=== PATIENT | male | born 1955 | race Caucasian/White ===

== ENCOUNTER → 2016-07-01 | Outpatient (CLI) | payer BC ==
[~2016-07-01] MED LIST: CEPH500C PO; FENO145T26 PO; FLUO20CA35 PO; GLC/500 PO; INSDGIPEN SC; MCR5 PO; OMEG10007 PO
[2016-07-01 12:22] LABS: ALT/SGPT 35 U/L (12-78); BLOOD UREA NITROGEN 28 mg/dl (7-18); BUN/CREATININE RATIO 16.3 (10-20); CALCIUM 9.7 mg/dl (8.5-10.1); CARBON DIOXIDE 28 mmol/L (21-32); CHLORIDE 106 mmol/L (98-107); CHOLESTEROL 168 mg/dl (0-200); GLUCOSE 162 mg/dl (70-99); POTASSIUM 4.3 mmol/L (3.5-5.1); SODIUM 141 mmol/L (136-145); TRIGLYCERIDES 158 mg/dl (0-150); VERY LOW DENSITY LIPOPROT CALC 32 mg/dl
[2016-07-01 12:25] LABS: ALB/GLOB RATIO 0.9 (0.9-2); ALKALINE PHOSPHATASE 78 U/L (45-117); AST/SGOT 22 U/L (15-37); CHOLESTEROL/HDL RATIO 4.5; HDL CHOLESTEROL 37 mg/dl; LDL CHOLESTEROL CALCULATED 99 mg/dl
[2016-07-01 12:28] LABS: ESTIMATED AVERAGE GLUCOSE 206 mg/dl; HA1C FLAG Normal (Normal)
== END | disposition home or self-care (01) ==
LOC: C.LABPVFM 10:32
PROVIDERS: ATTEND Family Medicine
DX: E78.5 Hyperlipidemia, unspecified (principal); E11.22 Type 2 diabetes mellitus with diabetic chronic kidney disease; N18.9 Chronic kidney disease, unspecified

== ENCOUNTER → 2016-07-21 | Outpatient (CLI) | payer BC ==
[2016-07-21 13:12] LABS: THYROID STIMULATING HORMONE 2.14 uIu/ml (0.300-4.500)
== END | disposition home or self-care (01) ==
LOC: C.LABPVFM 09:36
PROVIDERS: ATTEND Internal Medicine Endocrinology, Diabetes & Metabolism
DX: E11.9 Type 2 diabetes mellitus without complications (principal)

== ENCOUNTER → 2016-08-24 | Outpatient (CLI) | payer BC ==
[~2016-08-24] VITALS: Ht 180.3 cm; Wt 145.2 kg
[2016-08-24 12:33] VITALS: BP 182/82; PULSE 79; Ht 180.3 cm; Wt 145.2 kg
== END | disposition home or self-care (01) ==
LOC: C.NEUR 12:12
PROVIDERS: ATTEND Physician Assistant Medical
DX: G47.33 Obstructive sleep apnea (adult) (pediatric) (principal); G47.34 Idiopathic sleep related nonobstructive alveolar hypoventilation; E66.01 Morbid (severe) obesity due to excess calories; F17.200 Nicotine dependence, unspecified, uncomplicated

== ENCOUNTER → 2016-10-19 | Outpatient (CLI) | payer BC ==
[2016-10-19 12:44] LABS: ESTIMATED AVERAGE GLUCOSE 169 mg/dl; HA1C FLAG Normal (Normal)
[2016-10-19 13:17] LABS: THYROID STIMULATING HORMONE 1.25 uIu/ml (0.300-4.500)
== END | disposition home or self-care (01) ==
LOC: C.LABPVFM 10:06
PROVIDERS: ATTEND Internal Medicine Endocrinology, Diabetes & Metabolism
DX: E11.9 Type 2 diabetes mellitus without complications (principal); E03.9 Hypothyroidism, unspecified

== ENCOUNTER → 2017-02-17 | Outpatient (CLI) | payer BC ==
[2017-02-17 13:27] LABS: ESTIMATED AVERAGE GLUCOSE 229 mg/dl; HA1C FLAG Normal (Normal)
[2017-02-17 13:29] LABS: CREATININE RANDOM URINE 81.9 mg/dl
[2017-02-17 14:06] LABS: RATIO 1197.8 mcg/mg (0-30.0)
[2017-02-17 14:25] LABS: ALT/SGPT 34 U/L (12-78); AST/SGOT 25 U/L (15-37); BLOOD UREA NITROGEN 59 mg/dl (7-18); BUN/CREATININE RATIO 31.5 (10-20); CALCIUM 9.7 mg/dl (8.5-10.1); CARBON DIOXIDE 23 mmol/L (21-32); CHLORIDE 104 mmol/L (98-107); CREATININE 1.87 mg/dl (0.60-1.40); GLUCOSE 168 mg/dl (70-99); POTASSIUM 4.3 mmol/L (3.5-5.1); SODIUM 137 mmol/L (136-145)
[2017-02-17 14:36] LABS: ALB/GLOB RATIO 0.9 (0.9-2); ALKALINE PHOSPHATASE 121 U/L (45-117); CHOLESTEROL 172 mg/dl (0-200); CHOLESTEROL/HDL RATIO 4.9; HDL CHOLESTEROL 35 mg/dl; LDL CHOLESTEROL CALCULATED 65 mg/dl; TRIGLYCERIDES 362 mg/dl (0-150); VERY LOW DENSITY LIPOPROT CALC 72 mg/dl
== END | disposition home or self-care (01) ==
LOC: C.LABPVFM 10:05
PROVIDERS: ATTEND Internal Medicine Endocrinology, Diabetes & Metabolism
DX: Z11.59 Encounter for screening for other viral diseases (principal); E66.01 Morbid (severe) obesity due to excess calories; I12.9 Hypertensive chronic kidney disease with stage 1 through stage 4 chronic kidney disease, or unspecified chronic kidney disease; E78.5 Hyperlipidemia, unspecified; F32.9 Major depressive disorder, single episode, unspecified; N18.9 Chronic kidney disease, unspecified; E55.9 Vitamin D deficiency, unspecified; E11.42 Type 2 diabetes mellitus with diabetic polyneuropathy; B35.3 Tinea pedis; E03.9 Hypothyroidism, unspecified

== ENCOUNTER → 2017-03-04 | Outpatient (CLI) | payer BC ==
--- NOTE | 2017-03-04 12:15 | DIAGNOSTIC IMAGING REPORT ---
(RENAL)RETROPERITON COMP HISTORY: Renal insufficiency N18.9 Chronic renal [id number] COMPARISON: None. FINDINGS: Right kidney: Maximum linear dimension 13.1 cm. 3.5 cm upper pole cyst. Mild cortical scarring throughout. No evidence for hydronephrosis. Left kidney: Maximum dimension 12.2 cm. 4.5 cm mid pole cyst. No evidence for hydronephrosis. Mild cortical scarring throughout. Bladder: No bladder wall thickening. The bilateral ureteral jets were identified. IMPRESSION: 1. Bilateral renal cysts. 2. No evidence for hydronephrosis. 3. Moderate cortical scarring of both kidneys consistent with a component of nonobstructive renal insufficiency The above report was generated using voice recognition software. It may contain grammatical, syntax or spelling errors. Electronically signed by: Bucky Alanis M.D. 03/04/2017 12:14 PM Dictated Date/Time: 03/04/2017 12:12 PM
== END | disposition home or self-care (01) ==
LOC: C.ULTR 11:19
PROVIDERS: ATTEND Family Medicine
DX: N18.9 Chronic kidney disease, unspecified (principal); N28.1 Cyst of kidney, acquired; N28.89 Other specified disorders of kidney and ureter

== ENCOUNTER → 2017-05-24 | Outpatient (CLI) | payer BC ==
[~2017-05-24] VITALS: Ht 175.3 cm; Wt 151.7 kg
[2017-05-24 12:43] VITALS: BP 155/74; PULSE 94; Ht 175.3 cm; Wt 151.7 kg
== END | disposition home or self-care (01) ==
LOC: C.NEUR 12:14
PROVIDERS: ATTEND Internal Medicine Pulmonary Disease
DX: G47.33 Obstructive sleep apnea (adult) (pediatric) (principal); G47.34 Idiopathic sleep related nonobstructive alveolar hypoventilation; E66.01 Morbid (severe) obesity due to excess calories

== ENCOUNTER → 2017-06-16 | Outpatient (CLI) | payer BC ==
[2017-06-16 13:13] LABS: HEMOGLOBIN A1C 9.1 % (4.5-5.6)
[2017-06-16 13:35] LABS: ALBUMIN 3.2 gm/dl (3.4-5.0); ALKALINE PHOSPHATASE 138 U/L (45-117); ALT/SGPT 42 U/L (12-78); AST/SGOT 31 U/L (15-37); BLOOD UREA NITROGEN 58 mg/dl (7-18); CALCIUM 9.1 mg/dl (8.5-10.1); CARBON DIOXIDE 24 mmol/L (21-32); CREATININE 2.12 mg/dl (0.60-1.40); GLUCOSE 229 mg/dl (70-99); POTASSIUM 4.3 mmol/L (3.5-5.1); SODIUM 138 mmol/L (136-145)
== END | disposition home or self-care (01) ==
LOC: C.LABPVFM 09:39
PROVIDERS: ATTEND Family Medicine
DX: E66.01 Morbid (severe) obesity due to excess calories (principal); I10 Essential (primary) hypertension; E78.5 Hyperlipidemia, unspecified; E55.9 Vitamin D deficiency, unspecified; N18.9 Chronic kidney disease, unspecified; E11.9 Type 2 diabetes mellitus without complications; E03.9 Hypothyroidism, unspecified

== ENCOUNTER → 2017-10-20 | Outpatient (CLI) | payer BC ==
[2017-10-20 14:20] LABS: ALBUMIN 2.8 gm/dl (3.4-5.0); BLOOD UREA NITROGEN 50 mg/dl (7-18); CALCIUM 8.6 mg/dl (8.5-10.1); CARBON DIOXIDE 22 mmol/L (21-32); CREATININE 2.49 mg/dl (0.60-1.40); GLUCOSE 306 mg/dl (70-99); PHOSPHORUS 3.4 mg/dl (2.5-4.9); POTASSIUM 4.3 mmol/L (3.5-5.1); SODIUM 135 mmol/L (136-145)
== END | disposition home or self-care (01) ==
LOC: C.LABPVFM 10:27
PROVIDERS: ATTEND Internal Medicine Nephrology
DX: N17.9 Acute kidney failure, unspecified (principal)

== ENCOUNTER → 2017-11-02 | Outpatient (CLI) | payer BC ==
--- NOTE | 2017-11-02 13:48 | DIAGNOSTIC IMAGING REPORT ---
GASTRIC EMPTYING HISTORY: Dyspepsia NAUSEA,VOMITING,UNINTENTIONAL WT LOSS COMPARISON: None. TECHNIQUE: Following the oral administration of 1.1 mCi of technetium 99m sulfur colloid in egg sandwich and 8 ounces of water, static abdominal images are obtained anteriorly and posteriorly at 0 minutes, 1 hour, 2 hour, and 4 hour time intervals. Gastric emptying was calculated utilizing the geometric mean method. FINDINGS: There is approximately 75 % activity remaining at the 1 hour time interval (normal is less than 90%), 31 % remaining at the 2 hour time interval (normal is less than 60%), and 8 % activity remaining at the 4 hour time interval (normal is less than 10%). IMPRESSION: No evidence for delayed gastric emptying. The above report was generated using voice recognition software. It may contain grammatical, syntax or spelling errors. Electronically signed by: Bucky Alanis M.D. 11/02/2017 1:47 PM Dictated Date/Time: 11/02/2017 1:46 PM
== END | disposition home or self-care (01) ==
LOC: C.NUCL 08:43
PROVIDERS: ATTEND Physician Assistant
DX: R11.2 Nausea with vomiting, unspecified (principal); R63.4 Abnormal weight loss

== ENCOUNTER → 2017-11-28 | Outpatient (CLI) | payer BC ==
--- NOTE | 2017-11-28 12:21 | DIAGNOSTIC IMAGING REPORT ---
ABDOMEN 2VIEW W/PA CHEST RTN CLINICAL HISTORY: Abdominal discomfort pain COMPARISON STUDY: No previous studies for comparison. FINDINGS: The soft tissues, psoas shadows, renal outlines and intestinal gas pattern appear normal. There is no evidence for bowel obstruction. There is no evidence for free intraperitoneal air. No abnormal abdominal calcifications are seen. A frontal view of the chest was performed and is unremarkable. IMPRESSION: Normal study. The above report was generated using voice recognition software. It may contain grammatical, syntax or spelling errors. Electronically signed by: Bucky Alanis M.D. 11/28/2017 12:20 PM Dictated Date/Time: 11/28/2017 12:19 PM
== END | disposition home or self-care (01) ==
LOC: C.RADPV 11:56
PROVIDERS: ATTEND Family Medicine
DX: R10.9 Unspecified abdominal pain (principal)

== ENCOUNTER 2020-01-22 14:20 | Inpatient (IN) ==
--- NOTE | 2020-01-22 14:54 | Emergency Department Note ---
History of Present Illness General Chief complaint: Illness Stated complaint: weakness Time Seen by Provider: 01/22/20 14:53 History of Present Illness Maximum Pain Intensity: 0 Home Medications Home Medications Medication Instructions Recorded Confirmed Type aspirin 81 mg PO QPM 12/22/17 11/26/19 History econazole 1 applic TOPICAL BID 12/22/17 11/26/19 History nitroglycerin See Rx Instructions .ROUTE .COMPLEX 12/22/17 11/26/19 History ondansetron 8 mg PO BID PRN 12/22/17 11/26/19 History buspirone 10 mg PO BID 01/27/18 11/26/19 History calcitriol 0.25 mcg capsule 0.25 mcg PO .COMPLEX #36 cap 11/14/18 11/26/19 Rx fluoxetine 40 mg capsule 40 mg PO QDL 02/02/19 11/26/19 History FreeStyle Virgil 14 Day Sensor #6 ea NS 02/05/19 11/26/19 Rx insulin NPH isoph U-100 human 100 100 unit SUBCUT BID PRN 02/05/19 11/26/19 His tory unit/mL subcutaneous suspension losartan 50 mg tablet 50 mg PO DAILY 02/05/19 11/26/19 History mv,[id number] 1 cap PO DAILY cap 02/05/19 11/26/19 History oil 400 mcg-500 unit capsule pen needle, diabetic 32 gauge x #100 ea 02/05/19 11/26/19 Rx 1/4" insulin degludec 100 unit/mL (3 20 units SQ DAILY ml 05/28/19 11/26/19 History mL) subcutaneous pen levothyroxine 125 mcg tablet 125 mcg PO DAILY #90 tab 08/01/19 11/26/19 Rx Wheelchair (Manual or Powered) #1 ea 09/11/19 11/26/19 Rx gabapentin 100 mg capsule 300 mg PO DAILY cap 09/21/19 11/26/19 History carvedilol 3.125 mg tablet 3.125 mg PO BID #60 tab 12/04/19 Rx escitalopram oxalate 5 mg tablet 5 mg PO DAILY 01/09/20 01/09/20 History amlodipine 10 mg tablet 10 mg PO QPM #90 tab 01/17/20 Rx Allergies Allergy/AdvReac Type Severity Reaction Status Date / Time milk Allergy Mild Gastrointestinal Verified 01/09/20 11:18 Upset No Known Drug Allergies Allergy Uncoded 01/09/20 11:18 Past Med/Surg History Medical History Anxiety GERD (gastroesophageal reflux disease) Hyperlipidemia On home oxygen therapy 2L n/c with cpap at [facility] Osteoarthritis Peripheral neuropathy bilt legs/feet Surgical History History of bilateral cataract extraction History of cardiac cath 01/2018 "about 2-3 weeks"; no stents placed @ [facility] by Dr. Coronel History of carpal tunnel release R wrist History of colonoscopy History of repair of anterior cruciate ligament of left knee History of repair of anterior cruciate ligament of right knee History of tonsillectomy History of tooth extraction wisdom teeth Family History Mother Family history of diabetes mellitus Grandmother Family history of diabetes mellitus maternal Other Colorectal cancer Inflammatory bowel disease Melanoma Social History Smoking Status: Current every day smoker Cigarettes Per Day: 15 a day; Second Hand Exposure: No; Hx Alcohol Use: Yes Alcohol type: beer Hx Substance Use: No Preferred Language: Sudanese Communication Ability: Effective 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 Beliefs That Will Affect Care: None Current Living Situation: Family Current Living Situation Comment: lives with son Feels Safe at Home: Yes Assistive Devices: Cane, CPAP, Glasses, Oxygen - at Night, Special Shoe and Walker Physical Exam Vital Signs Vital Signs - 24 hr 01/22/20 14:25 Temperature 36.9 C Temperature Source Oral Pulse Rate 90 Respiratory Rate 16 Blood Pressure 138/64 Blood Pressure Mean 88 Pulse Oximetry 96 Oxygen Delivery Method Room Air Sepsis Recent Fever Within 48 Hours No Sepsis New/Unexplained Change in Mental Status N/A Sepsis Action Taken by Nursing No Action Required Discharge Plan Visit Data Chief Complaint: Illness Stated Complaint: weakness ED Provider: Audi Mattson Prescriptions Prescriptions: No Action calcitriol 0.25 mcg capsule 0.25 mcg PO .COMPLEX Qty: 36 RF: 1 (DME) Power Wheelchair Device See Rx Instructions .ROUTE .MEDSUPPLY Qty: 1 RF: 0 carvedilol 3.125 mg tablet 3.125 mg PO BID Qty: 60 RF: 5 amlodipine 10 mg tablet 10 mg PO QPM Qty: 90 RF: 3 gabapentin 100 mg capsule 300 mg PO DAILY RF: 0 escitalopram oxalate 5 mg tablet 5 mg PO DAILY RF: 0 levothyroxine 125 mcg tablet 125 mcg PO DAILY Qty: 90 RF: 0 losartan 50 mg tablet 50 mg PO DAILY RF: 0 ProRenal QD 400-500 mcg-unit capsule 1 cap PO DAILY RF: 0 (DME) FreeStyle Virgil 14 Day Sensor kit See Dose Instructions .ROUTE .MEDSUPPLY Qty: 6 RF: 3 (DME) pen needle, diabetic [BD Ultra-Fine Micro Pen Needle] 32 gauge x 1/4" needle See Dose Instructions .ROUTE .MEDSUPPLY Qty: 100 RF: 3 Tresiba FlexTouch U-100 100 unit/mL (3 mL) insulin pen 20 units SQ DAILY RF: 0 buspirone 10 mg Tablet 10 mg PO BID RF: 0 fluoxetine 40 mg capsule 40 mg PO QDL RF: 0 ondansetron 8 mg Tablet,Disintegrating 8 mg PO BID PRN (Reason: Nausea) RF: 0 econazole 1 % Cream 1 applic TOPICAL BID RF: 0 nitroglycerin 0.4 mg Tablet, Sublingual See Rx Instructions .ROUTE .COMPLEX RF: 0 aspirin 81 mg Tablet,Chewable 81 mg PO QPM RF: 0 Novolin N NPH U-100 Insulin 100 unit/mL suspension 100 unit SUBCUT BID PRNRF: 0
[2020-01-22 15:40] LABS: Basophils # (auto) 0.04 K/uL (0-0.2); Basophils % (auto) 0.3 %; Eosinophils # (auto) 0.27 K/uL (0-0.5); Eosinophils % (auto) 2.1 %; Hemoglobin 13.3 g/dL (14.0-18.0); Immature Granulocytes # (auto) 0.18 K/uL (0.00-0.02); Immature Granulocytes % (auto) 1.4 %; Lymphocytes # (auto) 1.96 K/uL (1.2-3.4); Lymphocytes % (auto) 15.2 %; Mean Corpuscular Hgb Conc 34.1 g/dL (32-36); Mean Platelet Volume 10.3 fL (7.4-10.4); Monocytes # (auto) 0.68 K/uL (0.11-0.59); Monocytes % (auto) 5.3 %; Neutrophils # (auto) 9.77 K/uL (1.4-6.5); Neutrophils % (auto) 75.7 %; Platelet Count 241 K/uL (130-400); RDW Coefficient of Variation 13.1 % (11.5-14.5); RDW Standard Deviation 45.3 fL (36.4-46.3); Red Blood Count 4.15 M/uL (4.7-6.1)
[2020-01-22 16:00] LABS: Alanine Aminotransferase 16 U/L (12-78); Albumin Level 3.3 gm/dl (3.4-5.0); Aspartate Aminotransferase 8 U/L (15-37); BUN Creatinine Ratio 10.9 (10-20); Blood Urea Nitrogen 43 mg/dl (7-18); Calcium 9.9 mg/dl (8.5-10.1); Carbon Dioxide 32 mmol/L (21-32); Chloride 95 mmol/L (98-107); Creatinine Clr Calc Pharmacy 21.2 ml/min; Est GFR (African American) 17.5; Est GFR (Non-African American) 15.1; Glucose 111 mg/dl (70-99); Magnesium 2.4 mg/dl (1.8-2.4); Potassium 3.5 mmol/L (3.5-5.1); Sodium 133 mmol/L (136-145)
[2020-01-22 16:10] LABS: Albumin Globulin Ratio 0.6 (0.9-2); Alkaline Phosphatase 152 U/L (45-117); Bilirubin,Total 0.6 mg/dl (0.2-1); Globulin 5.3 gm/dl (2.5-4.0); Total Protein 8.6 gm/dl (6.4-8.2); Troponin I < 0.015 ng/ml (0-0.045)
--- NOTE | 2020-01-22 16:11 | XRay Report ---
XR chest 1V portable HISTORY: 64 years-old Male weakness acute weakness COMPARISON: Acute abdominal series radiographs 11/28/2017 TECHNIQUE: Portable AP view of the chest FINDINGS: Moderate cardiomegaly. Moderate left pleural effusion with left lung base consolidation. No pneumotho rax. Hazy opacities are noted throughout the right lung. Degenerative changes of the shoulders and sp ine. IMPRESSION: 1. Moderate left pleural effusion with left lung base consolidation. 2. Hazy opacities throughout the right lung may reflect asymmetric pulmonary edema versus interstitia l pneumonitis. 3. Cardiomegaly. ACT 112: Negative or not required by law. The above report was generated using voice recognition software. It may contain grammatical, syntax o r spelling errors. Electronically signed by: Santi Baxter M.D. 01/22/2020 4:09 PM
--- NOTE | 2020-01-22 16:38 | Electrocardiogram Report ---
Test Reason : Blood Pressure : / mmHG Vent. Rate : 059 BPM Atrial Rate : 059 BPM P-R Int : 236 ms QRS Dur : 092 ms QT Int : 494 ms P-R-T Axes : 065 042 045 degrees QTc Int : 489 ms Poor data quality, interpretation may be adversely affected Sinus bradycardia with 1st degree A-V block Low voltage QRS Prolonged QT Abnormal ECG When compared with ECG of 25-JAN-2011 12:01, QT has lengthened Confirmed by Veto Pisano ([id number]) on 01/22/2020 4:37:41 PM Referred By: REFERRED SELF Confirmed By:Veto Pisano
--- NOTE | 2020-01-22 16:48 | CT Scan Report ---
CT head/brain wo con CLINICAL HISTORY: 64 years-old Male with AMS. Acutely altered mental status TECHNIQUE: Multiple axial CT images of the head were obtained without contrast. A dose lowering tech nique was utilized adhering to the principles of ALARA. CT DOSE: 2592.00 mGy.cm COMPARISON: The maxillofacial 01/14/2011 FINDINGS: No acute intracranial hemorrhage, midline shift, intracranial mass, hydrocephalus, territorial ischem ia or abnormal extra-axial collection. Age-related involutional changes. Extensive patchy white matte r hypodensities. Dense calcifications of the anterior falx cerebri. The calvarium is intact. Trace mastoid effusions. Partially imaged polypoid mucosal thickening of th e maxillary sinuses, left greater than right. Soft tissues are unremarkable. Prior bilateral lens rep lacement. IMPRESSION: No acute intracranial abnormality. ACT 112: Negative or not required by law. The above report was generated using voice recognition software. It may contain grammatical, syntax o r spelling errors. Electronically signed by: Santi Baxter M.D. 01/22/2020 4:47 PM
--- NOTE | 2020-01-22 16:56 | CT Scan Report ---
ABDOMEN AND PELVIS CT WITHOUT CONTRAST HISTORY: Acute diarrhea with generalized abdominal pain ESRD, diarrhea, diffuse abd pain TECHNIQUE: Multiaxial CT images of the abdomen and pelvis were performed without contrast. A dose lo wering technique was utilized adhering to the principles of ALARA. COMPARISON STUDY: Chest radiograph of same day, CT abdomen 12/09/2017 FINDINGS: Small to moderate left pleural effusion with left basilar consolidation. Groundglass opacities throug hout the right lung base. There is no pneumatosis or pneumoperitoneum. Cardiomegaly. Limited evaluati on of the solid abdominal organs without the use of IV contrast. Within the limitations of the study, the spleen, and pancreas appear unremarkable. Mild thickening of the adrenal glands suggestive of hy perplasia. Minimal layering cholelithiasis within the gallbladder neck. No CT evidence of acute juan cystitis. Unremarkable liver. Nonspecific mild bilateral perinephric stranding. Bilateral renal cysts measure up to 4.3 cm on the r ight. There are a few tiny calcifications measuring up to 1-2 mm within the inferior poles of the benji ateral kidneys. No ureteral calculi or obstructive uropathy. Mild urinary bladder wall thickening wit h partial distention. Mild prostamegaly. Calcified plaque of the aorta without aneurysm. No adenopath y. No bowel obstruction or bowel wall thickening. Minimal colonic diverticulosis without acute diverticu litis. Terminal ileum and appendix are unremarkable. No ascites or mesenteric inflammation. Tiny fat filled periumbilical hernia. Degenerative changes of the shoulders and spine with multilevel posterio r disc osteophyte complex formations. No acute fracture or suspicious bone lesion. IMPRESSION: 1. Small to moderate left pleural effusion with left basilar consolidation. 2. Partially imaged groundglass opacities of the right lung base favor atelectasis. 3. No bowel obstruction or bowel wall thickening. 4. Tiny bilateral renal calcifications are likely vascular. 5. Prostamegaly with urinary bladder wall thickening suggestive of chronic bladder outlet obstruction . 6. Additional findings as above. ACT 112: Negative or not required by law. The above report was generated using voice recognition software. It may contain grammatical, syntax o r spelling errors. Electronically signed by: Santi Baxter M.D. 01/22/2020 4:54 PM
[2020-01-22] MEDS ORDERED: VANCOMYCIN CONSULT ACTIVE PRN ×2 (16:57→21:10)
[2020-01-22] MEDS ORDERED: CEFEPIME 2,000 MG/20 ML VIAL IV STA (16:57)
[2020-01-22] MEDS ORDERED: VANCOMYCIN HCL 1,750 MG in SODIUM CHLORIDE 0.9% 500 ML IV ONE (16:57)
--- NOTE | 2020-01-22 18:09 | History & Physical Report ---
Date of Service January 22, 2020 Assessment & Plan (1) Metabolic encephalopathy: Patient is similar although the duration of her baseline of some forgetfulness. Could be infectious etiology concerning for left lower lobe pneumonia which is encouraged by this effusion. Patient's been initiated on antibiotics of vancomycin and cefepime in ER and cultured. There is negative Covid test. We will also send a urine analysis the patient does take Lasix therapy his urine and certainly with his diarrhea could be a diarrheal infectious illness could be caused (2) Diarrhea: Patient's diarrhea is currently being tested for infectious etiologies if positive will be treated appropriately (3) LLL pneumonia: Patient has a possible pneumonia with inside a large effusion. We will ask for diagnostic paracentesis. If Covid test is negative we could consider doing go procalcitonin to better understand this is bacterial versus viral he will be continued on vancomycin and cefepime at this time. Patient states he coughs when he drinks almost every single time. His infiltrate is not right- sided to left-sided does not make me consider aspiration pneumonia however we will pursue a speech therapy consultation to determine whether he may benefit from diet modification (4) CKD (chronic kidney disease), stage IV: Patient is on renal replacement therapy consultation Dr. Rachel service will be undertaken for continued treatment while in the hospital (5) Diabetes mellitus: Patient has a unusual sliding scale regimen at home taking Tresiba 10 a day insulin NPH sliding scale. We will convert him to more standard basal bolus insulin while in the hospital we will continue gabapentin for diabetic neuropathy (6) Depression: Patient continues on Lexapro and BuSpar therapy (7) Hypertension: Patient is on amlodipine losartan 50 carvedilol 3.25 twice daily and Lasix 80 twice daily (8) Hypothyroidism: TSH is appropriate on presentation Synthroid continues at 125 (9) Obstructive sleep apnea: Patient will be supplied with BiPAP tonight he typically has urine at home which she did not bring with him (10) Tobacco abuse: Patient was queried regarding his tobacco abuse. The patient does not seem interested in stopping. He is currently using nicotine sublingual and buccal packets. He did not wish to have a nicotine patch one was ordered for him. He did request outside to smoke a was informed he was not allowed to go outside History of Present Illness Primary Care Provider: VY Arriaga Allergies Allergy/AdvReac Type Severity Reaction Status Date / Time milk AdvReac Intermediate Gastrointestinal Verified 01/22/20 16:26 Upset Home Medications Home Medications Medication Instructions Recorded Confirmed Type aspirin 81 mg PO QPM 12/22/17 01/22/20 History econazole 1 applic TOPICAL BID 12/22/17 01/22/20 History nitroglycerin See Rx Instructions .ROUTE 12/22/17 01/22/20 History .COMPLEX PRN ondansetron 8 mg PO BID PRN 12/22/17 01/22/20 History buspirone 10 mg PO BID 01/27/18 01/22/20 History FreeStyle Virgil 14 Day Sensor #6 ea NS 02/05/19 11/26/19 Rx insulin NPH isoph U-100 human 100 100 unit SUBCUT BID PRN 02/05/19 01/22/20 History unit/mL subcutaneous suspension losartan 50 mg tablet 50 mg PO DAILY 02/05/19 01/22/20 History pen needle, diabetic 32 gauge x #100 ea 02/05/19 11/26/19 Rx 1/" insulin degludec 100 unit/mL (3 10 units SQ DAILY ml 05/28/19 01/22/20 History mL) subcutaneous pen Wheelchair (Manual or Powered) #1 ea 09/11/19 11/26/19 Rx gabapentin 100 mg capsule 300 mg PO HS cap 09/21/19 01/22/20 History carvedilol 3.125 mg tablet 3.125 mg PO BID #60 tab 12/04/19 01/22/20 Rx escitalopram oxalate 5 mg tablet 5 mg PO DAILY 01/09/20 01/22/20 History amlodipine 10 mg tablet 10 mg PO QPM #90 tab 01/17/20 01/22/20 Rx calcium acetate(phosphat bind) 2,001 mg PO TIDM 01/22/20 01/22/20 History calcium carbonate [Calcium 500] 500 mg PO DAILY 01/22/20 01/22/20 History ergocalciferol (vitamin D2) 1,250 mcg PO WK 01/22/20 01/22/20 History [Vitamin D2] furosemide [Lasix] 80 mg PO BID 01/22/20 01/22/20 History levothyroxine 125 mcg PO DAILYBB 01/22/20 01/22/20 History mv,[id number]-[id number] 1 cap PO QDD 01/22/20 01/22/20 History [ProRenal QD] nicotine 1 patch TRANSDERMAL DAILY 01/22/20 01/22/20 History omeprazole 20 mg PO DAILYBB 01/22/20 01/22/20 History Past Med/Surg History Medical History (Updated 01/22/20 @ 20:06 by Rashid Espitia MD) Anxiety GERD (gastroesophageal reflux disease) Hyperlipidemia On home oxygen therapy 2L n/c with cpap at Osteoarthritis Peripheral neuropathy bilt legs/feet Surgical History History of bilateral cataract extraction History of cardiac cath 01/2018 "about 2-3 weeks"; no stents placed @ [facility] by Dr. Coronel History of carpal tunnel release R wrist History of colonoscopy History of repair of anterior cruciate ligament of left knee History of repair of anterior cruciate ligament of right knee History of tonsillectomy History of tooth extraction wisdom teeth Family History Mother Family history of diabetes mellitus Grandmother Family history of diabetes mellitus maternal Other Colorectal cancer Inflammatory bowel disease Melanoma Social History Smoking Status: Current every day smoker Cigarettes Per Day: 15 a day; Second Hand Exposure: No; Hx Alcohol Use: Yes Alcohol type: beer Hx Substance Use: No Preferred Language: Mongolian Communication Ability: Effective Cremator Required: No Beliefs That Will Affect Care: None Current Living Situation: Family Current Living Situation Comment: lives with son Feels Safe at Home: Yes Assistive Devices: Cane, CPAP, Glasses, Oxygen - at Night, Special Shoe and Walker Review of Systems Review of Systems: Mild distress and fatigue seems to be chronic no headache, blurry or double vision no speech or swallowing issues no chest pain, pressure or palpitations no shortness of breath, cough or wheezes no abdominal pain, nausea or vomiting,does have some diarrhea no dysuria, hematuria or frequency no focal joint pain b/l lower leg swelling no back pain, CVA tenderness or radicular pain no bruising, bleeding or rashes no focal signs of weakness or numbness or altered sensation no complaints of anxiety or depression. Physical Exam Physical Exam: The patient chronically slightly volume overloaded Vital signs as documented. Head exam is normocephalic atraumatic no scleral icterus Neck is without JVD, thyromegaly, or carotid bruits. Lungs are clear to auscultation, no focal loss of breath sounds Cardiac exam, Rhythm is regular.. No murmurs, rubs or gallops. Abdominal exam reveals normal bowel sounds, soft non tender, no masses Extremities are nonedematous and both pedal pulses are present Neurologic exam is alert and oriented, no focal loss of strength or sensation Skin is with bruises nad some injuries in various stages of healing Psychologically is with concerns for memory loss Results & Data Results & Data ([facility]) Vital Signs (Past 12 Hours) Vital Signs Temp Pulse Resp BP Pulse Ox 01/22/20 17:45 63 19 98 01/22/20 17:30 62 19 181/94 H 98 01/22/20 17:15 76 16 96 01/22/20 17:00 61 20 166/80 H 97 01/22/20 16:49 62 19 96 01/22/20 16:32 59 L 14 01/22/20 16:00 86 37 H 01/22/20 15:45 77 19 01/22/20 15:35 95 01/22/20 15:30 75 16 01/22/20 15:15 80 22 100 01/22/20 15:00 57 L 18 137/63 100 01/22/20 14:45 63 19 100 01/22/20 14:33 58 L 19 100 01/22/20 14:30 63 19 146/71 H 100 01/22/20 14:25 98.4 F 90 16 138/[address] abdomen and pelvis, 01/22/20 IMpression: 1. Small to moderate left pleural effusion with left basilar consolidation. 2. Partially imaged groundglass opacities of the right lung base favor atelectasis. 3. No bowel obstruction or bowel wall thickening. 4. Tiny bilateral renal calcifications are likely vascular. 5. Prostamegaly with urinary bladder wall thickening suggestive of chronic bladder outlet obstruction PG Care Time/CCT Total # of Minutes Spent Total Time Spent with Patient: Total time spent is greater than 50% in coordination of care (as documented) at patient's floor/unit and/or counseling patient: Coding Level of Care Code 08204 Initial Inpt Care Lvl 3 Diagnoses Metabolic encephalopathy G93.41 Diarrhea R19.7 LLL pneumonia J18.9 CKD (chronic kidney disease), stage IV N18.4 Diabetes mellitus E11.9 Depression F32.9 Hypertension I10 Hypothyroidism E03.9 Obstructive sleep apnea G47.33 Tobacco abuse Z72.0
[2020-01-22] MEDS ORDERED: DEXTROSE 50% 50 ML SYRINGE IV PRN (21:10)
[2020-01-22] MEDS ORDERED: CARBOHYDRATES FOR HYPOGLYCEMIA PO PRN (21:10)
[2020-01-22] MEDS ORDERED: ONDANSETRON INJ 2 MG/ML 2 ML VIAL IV PRN (21:10)
[2020-01-22] MEDS ORDERED: INSULIN GLARGINE SOLOSTAR 100 UNITS/ML 3 ML PEN SC SCH ×2 (21:10→22:00)
[2020-01-22] MEDS ORDERED: ACETAMINOPHEN 325 MG TAB PO PRN (21:10)
[2020-01-22] MEDS ORDERED: LORazepam 0.5 MG TAB PO PRN (21:10)
[2020-01-22] MEDS ORDERED: GLUCAGON FOR INJ 1 MG VIAL SQ PRN (21:10)
[2020-01-22] MEDS ORDERED: MAGNESIUM HYDROXIDE SUSP 30 ML UDC PO PRN (21:10)
[2020-01-22] MEDS ORDERED: GLUCOSE 40% GEL 15 GM TUBE PO PRN (21:10)
[2020-01-22] MEDS ORDERED: GLUCOSE 10 TABS/TUBE PO PRN (21:10)
[2020-01-22] MEDS ORDERED: PHARMACY GLYCEMIC MGMT CONSULT PRN (21:31)
[2020-01-22] MEDS: INSULIN ASPART 100 UNITS/ML 3 ML PEN SC SCH (22:22)
[2020-01-22] MEDS: busPIRone 5 MG TAB PO SCH (22:25)
[2020-01-22] MEDS: carvediloL 3.125 MG TAB PO SCH (22:31)
[2020-01-22] MEDS: GABAPENTIN 300 MG CAP PO SCH (22:31)
[2020-01-22] MEDS: amLODIPine BESYLATE 5 MG TAB PO SCH (22:32)
[2020-01-22] MEDS: FUROSEMIDE 80 MG TAB PO SCH (22:32)
[2020-01-22] MEDS: ASPIRIN 81 MG ECTAB PO SCH (22:34)
--- NOTE | 2020-01-22 22:45 | Emergency Department Note ---
Impression & Plan Left lower lobe pneumonia, Weakness, Acute confusion, CKD (chronic kidney disease), stage IV ED Provider Note INFORMANT: Patient ED PROVIDER(S): Reid Oconnell MD CHIEF COMPLAINT: Weakness PLAN: Disposition: Admitted Condition: Good MEDICAL DECISION MAKING: Patient presented from dialysis because of confusion. Patient noted weakness. He did have some difficulty answering questions and changes answers from time to time. He underwent a work-up. His CBC showed a leukocytosis of 12.9. His chemistry panel was concerning for his end-stage renal disease with creatinine of 3.9. Ammonia and troponin were negative. CT scan of his head was performed because of the confusion and this was negative. ECG showed sinus bradycardia at 59 bpm but no acute changes. Chest x-ray was performed and was concerning for left lower lobe pneumonia. CT scan of the abdomen and pelvis was performed without evidence of acute intra-abdominal pathology. He did complain of nausea and abdominal pain. The patient was found to have the left lower lobe infiltrate and effusion noted on chest x-ray. The patient was treated with a dose of IV cefepime and vancomycin. Consultation was made with internal medicine. Patient was evaluated in the ER and admitted for further treatment. Triage Nursing notes reviewed and agree them. Vital Signs: reviewed and remarkable for no significant abnormalities Differential diagnosis: Infection, hypoglycemia, electrolyte abnormalities, overdose, toxicologic, cardiac sources, intracerebral event, neurologic, trauma, as well as other pathologies. Diagnostics interpreted by me: ECG: Twelve-lead ECG reveals sinus bradycardia at 59 bpm. First-degree AV block. Low voltage QRS. Prolonged QT interval. No ST elevation or depression. Normal axis. Cardiac Monitoring: Cardiac monitoring ordered by me: The patient was placed on continuous cardiac monitoring and observed. It revealed a normal sinus rhythm at 61 beats per minute without ectopy or evidence of dysrhythmia. Imaging studies: Chest x-ray consistent left lower lobe pneumonia. CT scan abdomen pelvis as noted above. Left lower lobe infiltrate noted. No acute process in the abdomen. I refer you to the EMR for further details. Consultation(s): Dr. Steel of internal medicine HPI: The patient is a 64 year old male who presents to the Emergency Room with complaints of weakness. This started most noticeably today at dialysis and is persistent. The patient also notes the following associated symptoms, mild shortness of breath. The patient has taken no medication for relieving factors. Current pain is rated as 0/10. The patient was at dialysis and seemed to be confused. He did not receive the full treatment. The patient noted at 1 point having a family member that was sick but then stated that they were not. He noted mild headache, chest pain, some shortness of breath, some nausea, abdominal pain, generalized weakness. Pt denies LOC, fevers, chills, diaphoresis, visual changes, neck pain,vomiting, back pain, melena, hematochezia, urinary symptoms, numbness, lymphadenopathy, rash, or other complaints. ROS: See above HPI for pertinent positives & negatives. A total of 10 systems reviewed and were otherwise negative. PAST MEDICAL HISTORY:See Below, end-stage renal disease, hypertension PAST SURGICAL HISTORY:See Below, FAMILY HISTORY:See Below SOCIAL HISTORY:See Below, lives with family HOME MEDICATIONS:See Below ALLERGIES:See Below VITALS:See Below PHYSICAL EXAMINATION: GENERAL: Awake, tired-appearing, in no distress HENT: Normocephalic, atraumatic. Oropharynx unremarkable. EYES: Normal conjunctiva. Sclera non-icteric. NECK: Inspection normal. Non-tender. Supple. No nuchal rigidity. FROM. No masses. RESPIRATORY: Diminished in the left base no wheezes. No rales. Normal respiratory effort. CARDIAC: Normal rate. Normal rhythm. No murmurs. No rubs. Extremities warm and well perfused. Pulses equal. No JVD. GI: Soft, non-distended. No tenderness to palpation. No rebound or guarding. No masses. RECTAL: Deferred. MUSCULOSKELETAL: Atraumatic. Chest examination reveals no tenderness. The back is symmetrical on inspection without obvious abnormality. There is no CVA tenderness to palpation. No joint edema. LOWER EXTREMITIES: Calves are equal size bilaterally and non-tender. No edema. No discoloration. NEURO: Mildly confused sensorium. No focal sensory or motor deficits noted. SKIN: No rash or jaundice noted. Reid Oconnell MD Past Med/Surg History Medical History (Updated 01/22/20 @ 22:40 by Reid Oconnell MD) Anxiety GERD (gastroesophageal reflux disease) Hyperlipidemia On home oxygen therapy 2L n/c with cpap at HS Osteoarthritis Peripheral neuropathy bilt legs/feet Surgical History History of bilateral cataract extraction History of cardiac cath 01/2018 "about 2-3 weeks"; no stents placed @ [facility] by Dr. Coronel History of carpal tunnel release R wrist History of colonoscopy History of repair of anterior cruciate ligament of left knee History of repair of anterior cruciate ligament of right knee History of tonsillectomy History of tooth extraction wisdom teeth Family History Mother Family history of diabetes mellitus Grandmother Family history of diabetes mellitus maternal Other Colorectal cancer Inflammatory bowel disease Melanoma Social History Smoking Status: Current every day smoker Cigarettes Per Day: 15 a day; Second Hand Exposure: No; Do You Dip or Chew Tobacco: Yes; Tobacco Cessation Education Requested by Patient: No Hx Alcohol Use: Yes Alcohol type: beer Hx Substance Use: No Preferred Language: Uzbek Communication Ability: Effective Batch Attendant Required: No Beliefs That Will Affect Care: None Current Living Situation: Family Current Living Situation Comment: lives with sonAshish Other Information That Helps Us Care for You: No Feels Safe at Home: Yes Safety Concerns: Feels Safe At This Time Assistive Devices: CPAP, Oxygen - at Night and Wheelchair Assistive Devices Comment: 2L O2 bled into CPAP at night Allergies Allergies Allergy/AdvReac Type Severity Reaction Status Date / Time milk AdvReac Intermediate Gastrointestinal Verified 01/22/20 16:26 Upset Home Meds Home Medications Medication Instructions Recorded Confirmed aspirin 81 mg PO QPM 12/22/17 01/22/20 econazole 1 applic TOPICAL BID 12/22/17 01/22/20 nitroglycerin See Rx Instructions .ROUTE 12/22/17 01/22/20 .COMPLEX PRN ondansetron 8 mg PO BID PRN 12/22/17 01/22/20 buspirone 10 mg PO BID 01/27/18 01/22/20 losartan 50 mg tablet 50 mg PO DAILY 02/05/19 01/22/20 insulin degludec 100 unit/mL (3 10 units SQ DAILY ml 05/28/19 01/22/20 mL) subcutaneous pen gabapentin 100 mg capsule 300 mg PO HS cap 09/21/19 01/22/20 escitalopram oxalate 5 mg tablet 5 mg PO DAILY 01/09/20 01/22/20 calcium acetate(phosphat bind) 2,001 mg PO TIDM 01/22/20 01/22/20 calcium carbonate [Calcium 500] 500 mg PO DAILY 01/22/20 01/22/20 ergocalciferol (vitamin D2) 1,250 mcg PO WK 01/22/20 01/22/20 [Vitamin D2] furosemide [Lasix] 80 mg PO BID 01/22/20 01/22/20 levothyroxine 125 mcg PO DAILYBB 01/22/20 01/22/20 [id number],[id number] 1 cap PO QDD 01/22/20 01/22/20 [ProRenal QD] nicotine 1 patch TRANSDERMAL DAILY 01/22/20 01/22/20 omeprazole 20 mg PO DAILYBB 01/22/20 01/22/20 Previous Rx's Medication Instructions Recorded FreeStyle Virgil 14 Day Sensor #6 ea NS 02/05/19 pen needle, diabetic 32 gauge x #100 ea 02/05/1904/07" Wheelchair (Manual or Powered) #1 ea 09/11/19 carvedilol 3.125 mg tablet 3.125 mg PO BID #60 tab 12/04/19 amlodipine 10 mg tablet 10 mg PO QPM #90 tab 01/17/20 Results & Data (ED) Vital Signs Vital Signs - 24 hr 01/22/20 14:25 01/22/20 14:30 01/22/20 14:33 Temperature 36.9 C Temperature Source Oral Pulse Rate 90 63 58 L Pulse Rate from SpO2 Sensor 58 L 58 L Respiratory Rate 16 19 19 Blood Pressure 138/64 146/71 H Blood Pressure Mean 88 104 Pulse Oximetry 96 100 100 Oxygen Delivery Method Room Air Sepsis Recent Fever Within 48 Hours No Sepsis New/Unexplained Change in Mental Status N/A Sepsis Action Taken by Nursing No Action Required 01/22/20 14:45 01/22/20 15:00 01/22/20 15:15 Temperature Temperature Source Pulse Rate 63 57 L 80 Pulse Rate from SpO2 Sensor 58 L 57 L 62 Respiratory Rate 19 18 22 Blood Pressure 137/63 Blood Pressure Mean 93 Pulse Oximetry 100 100 100 Oxygen Delivery Method Sepsis Recent Fever Within 48 Hours Sepsis New/Unexplained Change in Mental Status Sepsis Action Taken by Nursing 01/22/20 15:30 01/22/20 15:35 01/22/20 15:45 Temperature Temperature Source Pulse Rate 75 77 Pulse Rate from SpO2 Sensor Respiratory Rate 16 19 Blood Pressure Blood Pressure Mean Pulse Oximetry 95 Oxygen Delivery Method Room Air Sepsis Recent Fever Within 48 Hours Sepsis New/Unexplained Change in Mental Status Sepsis Action Taken by Nursing 01/22/20 16:00 01/22/20 16:32 01/22/20 16:49 Temperature Temperature Source Pulse Rate 86 59 L 62 Pulse Rate from SpO2 Sensor 62 Respiratory Rate 37 H 14 19 Blood Pressure Blood Pressure Mean Pulse Oximetry 96 Oxygen Delivery Method Sepsis Recent Fever Within 48 Hours Sepsis New/Unexplained Change in Mental Status Sepsis Action Taken by Nursing 01/22/20 17:00 01/22/20 17:15 01/22/20 17:30 Temperature Temperature Source Pulse Rate 61 76 62 Pulse Rate from SpO2 Sensor 61 62 62 Respiratory Rate 20 16 19 Blood Pressure 166/80 H 181/94 H Blood Pressure Mean 117 114 Pulse Oximetry 97 96 98 Oxygen Delivery Method Sepsis Recent Fever Within 48 Hours Sepsis New/Unexplained Change in Mental Status Sepsis Action Taken by Nursing 01/22/20 17:45 Temperature Temperature Source Pulse Rate 63 Pulse Rate from SpO2 Sensor 63 Respiratory Rate 19 Blood Pressure Blood Pressure Mean Pulse Oximetry 98 Oxygen Delivery Method Sepsis Recent Fever Within 48 Hours Sepsis New/Unexplained Change in Mental Status Sepsis Action Taken by Nursing Laboratory Data Result diagrams: 01/22/20 15:22 01/22/20 15:22 Lab Results 01/22/20 01/22/20 01/22/20 Range/Units 15:22 15:22 15:22 WBC 12.90 H (4.8-10.8) K/uL RBC 4.15 L (4.7-6.1) M/uL Hgb 13.3 L (14.0-18.0) g/dL Hct 39.0 L (42-52) % MCV 94.0 (80-100) fL MCH 32.0 (25-34) pg MCHC 34.1 (32-36) g/dL RDW Std Deviation 45.3 (36.4-46.3) fL RDW Coeff of Jorge A 13.1 (11.5-14.5) % Plt Count 241 (130-400) K/uL MPV 10.3 (7.4-10.4) fL Immature Gran % (Auto) 1.4 % Neut % (Auto) 75.7 % Lymph % (Auto) 15.2 % Tyler % (Auto) 5.3 % Eos % (Auto) 2.1 % Baso % (Auto) 0.3 % Neut # (Auto) 9.77 H (1.4-6.5) K/uL Lymph # (Auto) 1.96 (1.2-3.4) K/uL Tyler # (Auto) 0.68 H (0.11-0.59) K/uL Eos # (Auto) 0.27 (0-0.5) K/uL Baso # (Auto) 0.04 (0-0.2) K/uL Immature Gran # (Auto) 0.18 H (0.00-0.02) K/uL Sodium 133 L (136-145) mmol/L Potassium 3.5 (3.5-5.1) mmol/L Chloride 95 L (98-107) mmol/L Carbon Dioxide 32 (21-32) mmol/L Anion Gap 6.0 (3-11) BUN 43 H (7-18) mg/dl Creatinine 3.94 H (0.6-1.4) mg/dl Est Cr Clr Drug Dosing 21.2 ml/min Est GFR ( Amer) 17.5 Est GFR (Non-Af Amer) 15.1 BUN/Creatinine Ratio 10.9 (10-20) Glucose 111 H (70-99) mg/dl Calcium 9.9 (8.5-10.1) mg/dl Magnesium 2.4 (1.8-2.4) mg/dl Total Bilirubin 0.6 (0.2-1) mg/dl AST 8 L (15-37) U/L ALT 16 (12-78) U/L Alkaline Phosphatase 152 H (45-117) U/L Ammonia < 10.0 L (11-32) umol/L Troponin I < 0.015 (0-0.045) ng/ml Total Protein 8.6 H (6.4-8.2) gm/dl Albumin 3.3 L (3.4-5.0) gm/dl Globulin 5.3 H (2.5-4.0) gm/dl Albumin/Globulin Ratio 0.6 L (0.9-2) TSH 1.580 (0.300-4.500) uIu/ml COVID-19 Eval Order COVID-19 PCR (Negative) 01/22/20 01/22/20 Range/Units 17:50 17:50 WBC (4.8-10.8) K/uL RBC (4.7-6.1) M/uL Hgb (14.0-18.0) g/dL Hct (42-52) % MCV (80-100) fL MCH (25-34) pg MCHC (32-36) g/dL RDW Std Deviation (36.4-46.3) fL RDW Coeff of Jorge A (11.5-14.5) % Plt Count (130-400) K/uL MPV (7.4-10.4) fL Immature Gran % (Auto) % Neut % (Auto) % Lymph % (Auto) % Tyler % (Auto) % Eos % (Auto) % Baso % (Auto) % Neut # (Auto) (1.4-6.5) K/uL Lymph # (Auto) (1.2-3.4) K/uL Tyler # (Auto) (0.11-0.59) K/uL Eos # (Auto) (0-0.5) K/uL Baso # (Auto) (0-0.2) K/uL Immature Gran # (Auto) (0.00-0.02) K/uL Sodium (136-145) mmol/L Potassium (3.5-5.1) mmol/L Chloride (98-107) mmol/L Carbon Dioxide (21-32) mmol/L Anion Gap (3-11) BUN (7-18) mg/dl Creatinine (0.6-1.4) mg/dl Est Cr Clr Drug Dosing ml/min Est GFR ( Amer) Est GFR (Non-Af Amer) BUN/Creatinine Ratio (10-20) Glucose (70-99) mg/dl Calcium (8.5-10.1) mg/dl Magnesium (1.8-2.4) mg/dl Total Bilirubin (0.2-1) mg/dl AST (15-37) U/L ALT (12-78) U/L Alkaline Phosphatase (45-117) U/L Ammonia (11-32) umol/L Troponin I (0-0.045) ng/ml Total Protein (6.4-8.2) gm/dl Albumin (3.4-5.0) gm/dl Globulin (2.5-4.0) gm/dl Albumin/Globulin Ratio (0.9-2) TSH (0.300-4.500) uIu/ml COVID-19 Eval Order Covid[address] [facility] COVID-19 PCR NEGATIVE (Negative) Administered Medications Amlodipine Besylate (Amlodipine Besylate 5 Mg Tab) 10 mg PO QPM KATELYNN Stop: 02/21/20 21:09 Last Admin: 01/22/20 22:32 Dose: 10 mg Documented by: [id number] Aspirin (Aspirin 81 Mg Ectab) 81 mg PO QPM KATELYNN Stop: 02/21/20 21:29 Last Admin: 01/22/20 22:34 Dose: 81 mg Documented by: [id number] Buspirone HCl (Buspirone 5 Mg Tab) 10 mg PO BID KATELYNN Stop: 02/21/20 21:09 Last Admin: 01/22/20 22:25 Dose: 10 mg Documented by: [id number] Carvedilol (Carvedilol 3.125 Mg Tab) 3.125 mg PO BID KATELYNN Stop: 02/21/20 21:09 Last Admin: 01/22/20 22:31 Dose: Not Given Documented by: [id number] Furosemide (Furosemide 80 Mg Tab) 80 mg PO BID17 KATELYNN Stop: 02/21/20 21:09 Last Admin: 01/22/20 22:32 Dose: 80 mg Documented by: [id number] Gabapentin (Gabapentin 300 Mg Cap) 300 mg PO HS KATELYNN Stop: 02/21/20 21:09 Last Admin: 01/22/20 22:31 Dose: 300 mg Documented by: [id number] Insulin Aspart (Insulin Aspart 100 Units/Ml 3 Ml Pen) 0 units SC ACHS KATELYNN Stop: 02/21/20 21:09 Last Admin: 01/22/20 22:22 Dose: Not Given Documented by: [id number] Cosigned by: [id number] Insulin Glargine (Insulin Glargine Solostar 100 Units/Ml 3 Ml Pen) 0 units SC 2200 KATELYNN; Protocol Stop: 01/22/20 23:59 Last Admin: 01/22/20 22:22 Dose: Not Given Documented by: [id number] Discontinued Medications Cefepime HCl (Maxipime) 2,000 mg in 20 mls @ 5 mls/min IV NOW STA; Protocol Stop: 01/22/20 17:00 Last Admin: 01/22/20 17:19 Dose: 5 mls/min Documented by: [id number] Vancomycin HCl 1,750 mg/ (Sodium Chloride) 535 mls @ 200 mls/hr IV NOW ONE Stop: 01/22/20 19:37 Last Infusion: 01/22/20 22:12 Dose: 0 mls/hr Documented by: [id number] Admin: 01/22/20 18:07 Dose: 200 mls/hr Documented by: [id number] Discharge Plan Visit Data Chief Complaint: Illness Stated Complaint: weakness ED Provider: Reid Oconnell Discharge Problem: Left lower lobe pneumonia, Weakness, Acute confusion, CKD (chronic kidney dis ease), stage IV Patient Disposition: Admitted As Inpatient Discharge Instructions Interventions: ED Discharge Assessment Last Done: 01/22/20 20:41
[2020-01-23] MEDS: INSULIN ASPART 100 UNITS/ML 3 ML PEN SC SCH ×6 (00:09→20:35)
[2020-01-23] MEDS: PANTOprazole 40 MG TAB PO SCH (04:27)
[2020-01-23] MEDS: LEVOTHYROXINE SODIUM 125 MCG TABLET PO SCH (04:29)
[2020-01-23 06:07] LABS: INR 1.3 (0.9-1.1); Prothrombin Time 13.4 Seconds (9.0-12.0)
[2020-01-23 06:50] LABS: BUN Creatinine Ratio 9.8 (10-20); Calcium 9.2 mg/dl (8.5-10.1); Creatinine Clr Calc Pharmacy 17.9 ml/min; Est GFR (African American) 12.5; Est GFR (Non-African American) 10.8; Potassium 3.3 mmol/L (3.5-5.1); Total Protein 7.1 gm/dl (6.4-8.2)
[2020-01-23 07:37] LABS: Estimated Average Glucose 338 mg/dl; Hemoglobin A1C 13.4 % (4.5-5.6)
--- NOTE | 2020-01-23 08:39 | Pharmacy Report ---
Pharmacy Abx Initial Consult - Date of Service January 23, 2020 - Pharmacy Dosing Scope Date of Consult: 01/22 Consultation requested by: Dr. Espitia Pharmacy is consulted to initiate vanco IV/PO dosing therapy, order appropriate labs and adjust drug dose/frequency. - Subjective The patient is a 64 year old M admitted on 01/22/20 19:15. - Objective Height: 5 ft 9 in Weight: 114.8 kg Vital Signs (Past 12hrs): Vital Signs Temp Pulse Pulse Pulse Resp BP Pulse Ox 01/23/20 07:56 36.6 C 56 L 16 133/66 95 01/23/20 07:29 52 L 18 98 01/23/20 03:20 59 L 14 99 01/22/20 23:25 60 16 96 01/22/20 23:09 36.6 C 55 L 16 148/71 H 96 01/22/20 22:30 58 L 01/22/20 21:30 36.7 C 56 L 12 156/72 H 96 01/22/20 20:40 61 18 144/72 H 98 Lab Results (24hrs): Laboratory Tests (24 Hours) 01/23/20 01/23/20 01/22/20 05:46 05:46 15:22 WBC 12.90 H Neut # (Auto) 9.77 H Creatinine 5.21 H* D Est Cr Clr Drug Dosing 17.9 Random Vancomycin 20.1 01/22/20 15:22 WBC Neut # (Auto) Creatinine 3.94 H Est Cr Clr Drug Dosing 21.2 Random Vancomycin Micro Results: 01/22/20 17:45 Aerobic Blood Culture - Pending Blood Anaerobic Blood Culture - Pending 01/22/20 17:59 Aerobic Blood Culture - Pending Blood Anaerobic Blood Culture - Pending - Risk Factors for Resistance * Chronic dialysis within the past 30 days - Assessment & Plan Assessment 64 year old male presenting with confusion following dialysis. CXR concerning for possible pneumonia. Started on vancomycin and cefepime. Blood cultures x 2 are pending, MRSA nasal swab pending Plan Vancomycin IV * Received loading dose of vancomycin 1750 mg x 1 last evening (~15 mg/kg/dose) * Random vancomycin level this AM therapeutic at ~20 mcg/ml (goal 15-20 mcg/ml for pneumonia) * Nephrology consulted to follow patient. Per notes, patient had dialysis yesterday prior to admission however incomplete session. * Will order small vancomycin dose for tonight to ensure level remains >15 mcg/ml Pharmacy will continue to follow and will adjust dose/frequency as necessary. Thank you.
[2020-01-23] MEDS: CALCIUM ACETATE 667 MG CAP/TAB PO SCH ×3 (08:47→17:50)
[2020-01-23] MEDS: LOSARTAN POTASSIUM 50 MG TAB PO SCH (08:49)
[2020-01-23] MEDS: ESCITALOPRAM OXALATE 10 MG TAB PO SCH (08:50)
[2020-01-23] MEDS: FUROSEMIDE 80 MG TAB PO SCH ×2 (08:51→17:51)
[2020-01-23] MEDS: busPIRone 5 MG TAB PO SCH ×2 (08:53→20:29)
[2020-01-23] MEDS: carvediloL 3.125 MG TAB PO SCH ×2 (08:54→20:29)
[2020-01-23] MEDS ORDERED: CALCIUM CARBONATE 1250MG TAB PO SCH (09:00)
[2020-01-23] MEDS ORDERED: NICOTINE 14 MG/24 HR PATCH TD SCH (09:00)
--- NOTE | 2020-01-23 11:53 | Procedure Note ---
Procedure Note Date of Service January 23, 2020 Note Procedure: Diagnostic and/or therapeutic ultrasound-guided catheter thoracentesis Dozer Operator: Dr. Carlos Morrissey Indication: Pleural effusion Consent: Signed by patient and verified with timeout prior to procedure Anesthesia: 8 mL's of 1% lidocaine without epinephrine given locally Procedure: Consent was verified and timeout performed. Appropriate imaging studies were reviewed prior to the procedure. Patient was placed in a seated position and limited thoracic ultrasound was performed of the left lateral chest. See separate imaging. The site appropriate for thoracentesis was selected. The skin was prepped and draped in normal sterile fashion. Lidocaine was used for local analgesia. Fluid was aspirated via the finder needle. A small skin venita was made with the scalpel and the catheter over the needle apparatus was advanced over the rib into the pleural space. Using the syringe one-way valve system, a total of 850 mL's of yellow fluid was removed. Procedure was terminated due to lack of fluid. The catheter was removed and observed to be intact. A sterile dressing was applied. Post procedure chest x-ray was ordered. Fluid was sent for LDH, total protein, cell count, glucose, pH, cytology, AFB cultures, gram stain and culture and fungal cultures. The patient tolerated the procedure well without obvious complication Coding CPT Codes Pulmonary/Thoracic - Pulmonary and Thoracic: 31160 Pleural drainage w/imaging ([id number]) [facility] Procedure Codes (Charges) Pulmonary/Thoracic Procedure 1: Pulmonary and Thoracic: 83363 Pleural drainage w/imaging
--- NOTE | 2020-01-23 11:55 | Pulmonary Consultation ---
Date of Consultation January 23, 2020 Assessment & Plan (1) Left lower lobe pneumonia: I would recommend changing his antibiotics to ceftriaxone and azithromycin. I have ordered for an MRSA screen and a procalcitonin. The pleural effusion does appear to be an exudate based on light's criteria. Gram stain is negative. It does not appear to be an empyema. Etiology includes possible parapneumonic effusion, volume overload (although unusual to be unilateral) and chronic effusion related to his ESRD. I did send for cytology to evaluate for the possibility of malignancy. I would recommend a repeat chest x-ray in 6 weeks to demonstrate continued resolution of the infiltrate in the effusion. I also order for speech therapy consultation in light of the possibility of aspiration given his history. Left-sided infiltrate would be unusual for aspiration, however. We will continue to follow. Thank you for the consult. (2) Obstructive sleep apnea: (3) CKD (chronic kidney disease), stage IV: (4) Pleural effusion, left: History of Present Illness Reason for Consultation: Left pleural effusion with atelectasis Requesting Physician: Hospitalist service Attending Physician: Van Crowley History of Present Illness 64-year-old male with a past medical history of ESRD, diabetic neuropathy, tobacco abuse, obstructive sleep apnea on CPAP and depression presenting to the hospital due to confusion during dialysis. Patient notes that he does not recall what happened during the dialysis session and only remembers coming to the hospital. He reports that his only complaint today is that he coughs intermittently well eating food. Per the HPI from the emergency department physician, the patient indicated that he was mildly short of breath. He apparently did not complete his hemodialysis session. There was a mild headache that was present at the time of his ER visit. He was admitted to the hospital with concerns of a left lower lobe pneumonia. There was also concern for metabolic encephalopathy and diarrhea that may be infectious in origin. Patient notes that he lives with his son. He is essentially bound to a hospital bed at his home. He gets around in a wheelchair. He smokes three quarters of a pack of cigarettes a day. He notes that he has been smoking for 10 years. He does not have any pets at home. He wants to go outside and smoke a cigarette as he indicated to the nurse and I numerous times. He has no significant c omplaints at present. Chest x-ray performed yesterday demonstrated moderate left pleural effusion with lung base consolidation. CT abdomen demonstrated small to moderate left pleural effusion with left basilar consolidation. Partially imaged groundglass opacities within the right lung base that favored atelectasis. No significant intra-abdominal pathology other than prostatomegaly with urinary bladder wall thickening suggestive of chronic bladder outlet obstruction. WBC count of 12.9 today. Creatinine is 5.21 and BUN is 51. He is currently on cefepime for antibiotic coverage. Blood cultures are pending. Allergies Allergy/AdvReac Type Severity Reaction Status Date / Time milk AdvReac Intermediate Gastrointestinal Verified 01/22/20 16:26 Upset Home Medications Home Medications Medication Instructions Recorded Confirmed Type aspirin 81 mg PO QPM 12/22/17 01/22/20 History econazole 1 applic TOPICAL BID 12/22/17 01/22/20 History nitroglycerin See Rx Instructions .ROUTE 12/22/17 01/22/20 History .COMPLEX PRN ondansetron 8 mg PO BID PRN 12/22/17 01/22/20 History buspirone 10 mg PO BID 01/27/18 01/22/20 History FreeStyle Virgil 14 Day Sensor #6 ea NS 02/05/19 11/26/19 Rx losartan 50 mg tablet 50 mg PO DAILY 02/05/19 01/22/20 History pen needle, diabetic 32 gauge x #100 ea 02/05/19 11/26/19 Rx 1/4" insulin degludec 100 unit/mL (3 10 units SQ DAILY ml 05/28/19 01/22/20 History mL) subcutaneous pen Wheelchair (Manual or Powered) #1 ea 09/11/19 11/26/19 Rx gabapentin 100 mg capsule 300 mg PO HS cap 09/21/19 01/22/20 History carvedilol 3.125 mg tablet 3.125 mg PO BID #60 tab 12/04/19 01/22/20 Rx escitalopram oxalate 5 mg tablet 5 mg PO DAILY 01/09/20 01/22/20 History amlodipine 10 mg tablet 10 mg PO QPM #90 tab 01/17/20 01/22/20 Rx calcium acetate(phosphat bind) 2,001 mg PO TIDM 01/22/20 01/22/20 History calcium carbonate [Calcium 500] 500 mg PO DAILY 01/22/20 01/22/20 History ergocalciferol (vitamin D2) 1,250 mcg PO WK 01/22/20 01/22/20 History [Vitamin D2] furosemide [Lasix] 80 mg PO BID 01/22/20 01/22/20 History levothyroxine 125 mcg PO DAILYBB 01/22/20 01/22/20 History mv,[id number]-jta-epa-fish 1 cap PO QDD 01/22/20 01/22/20 History [ProRenal QD] nicotine 1 patch TRANSDERMAL DAILY 01/22/20 01/22/20 History omeprazole 20 mg PO DAILYBB 01/22/20 01/22/20 History Patient History Medical History (Updated 01/23/20 @ 14:06 by Carlos Morrissey MD) Anxiety GERD (gastroesophageal reflux disease) Hyperlipidemia On home oxygen therapy 2L n/c with cpap at Osteoarthritis Peripheral neuropathy bilt legs/feet Pleural effusion, left Surgical History History of bilateral cataract extraction History of cardiac cath 01/2018 "about 2-3 weeks"; no stents placed @ [facility] by Dr. Coronel History of carpal tunnel release R wrist History of colonoscopy History of repair of anterior cruciate ligament of left knee History of repair of anterior cruciate ligament of right knee History of tonsillectomy History of tooth extraction wisdom teeth Family History Mother Family history of diabetes mellitus Grandmother Family history of diabetes mellitus maternal Other Colorectal cancer Inflammatory bowel disease Melanoma Social History Smoking Status: Current every day smoker Cigarettes Per Day: 15 a day; Second Hand Exposure: No; Do You Dip or Chew Tobacco: Yes; Tobacco Cessation Education Requested by Patient: No Hx Alcohol Use: Yes Alcohol type: beer Hx Substance Use: No Preferred Language: Malaysian Communication Ability: Effective Principal Trainer Required: No Beliefs That Will Affect Care: None marital status: Single Current Living Situation: Family Current Living Situation Comment: lives with Ashish lyn Other Information That Helps Us Care for You: No Feels Safe at Home: Yes Safety Concerns: Feels Safe At This Time Assistive Devices: CPAP and Wheelchair Assistive Devices Comment: 2L O2 bled into CPAP at night Review of Systems Review of Systems: All systems reviewed & are unremarkable except as noted in HPI & below Physical Exam Constitutional: WD/WN, vitals as above Eyes: PERRL, conjunctivae normal, anicteric sclerae ENMT: external ear and nose normal, oropharynx normal Neck: + thick neck Respiratory: normal respiratory effort Left lower lobe crackles noted with diminished breath sounds. Cardiovascular: RRR, no murmur, no edema Gastrointestinal (Abdomen): normal bowel sounds, soft, nontender, no hepatosplenomegaly Musculoskeletal: Severe diffuse weakness. Weakness in the lower extremities bilaterally. Skin: no rashes, warm and dry Neurologic: PERRL, EOMI, accommodation nl, no face palsy, no dysarthria Psychiatric: A+Ox3, euthymic affect Results & Data Results & Data ([facility]) Vital Signs (Past 12 Hours) Vital Signs Temp Pulse Pulse Resp BP Pulse Ox 01/23/20 07:56 97.9 F 56 L 16 133/66 95 01/23/20 07:29 52 L 18 98 01/23/20 03:20 59 L 14 99 I reviewed vital signs, labs and imaging PG Care Time/CCT Total # of Minutes Spent Total Time Spent with Patient: Total time spent is greater than 50% in coordination of care (as documented) at patient's floor/unit and/or counseling patient: Coding Level of Care Code 82568 Inpt Consult Level 5 Diagnoses Left lower lobe pneumonia J18.9 Obstructive sleep apnea G47.33 CKD (chronic kidney disease), stage IV N18.4 Pleural effusion, left J90
--- NOTE | 2020-01-23 12:27 | XRay Report ---
XR chest 1V portable HISTORY: 64 years-old Male s/p left thora left-sided pleural effusion. Status post thoracentesis. COMPARISON: Chest radiograph 01/22/2020 TECHNIQUE: Portable AP view of the chest FINDINGS: Cardiac lead. Left pleural effusion have slightly decreased in size from comparison. Persistent left lung base consolidation. Pulmonary vascular congestion with interstitial coarsening, right greater th an left appears stable to slightly progressed. There is no pneumothorax. The patient is mildly rotate d. Electronic device projects over the right chest. IMPRESSION: 1. Mildly decreased size of the left pleural effusion status post thoracentesis. No postprocedural pn eumothorax. 2. Persistent left lung base consolidation. 3. Interstitial coarsening throughout the right lung appears stable to slightly progressed from deni rison. This may reflect asymmetric pulmonary edema. ACT 112: Negative or not required by law. The above report was generated using voice recognition software. It may contain grammatical, syntax o r spelling errors. Electronically signed by: Santi Baxter M.D. 01/23/2020 12:25 PM
[2020-01-23 12:49] LABS: Glucose Pleural Fluid 129 mg/dl
[2020-01-23 13:01] LABS: Albumin Pleural Fluid 1.8 g/dl; Amylase Pleural Fluid 35 U/L; LDH Pleural Fluid 124 U/L
[2020-01-23 13:26] LABS: Appearance Pleural Fluid HAZY; Color Pleural Fluid YELLOW; RBC Pleural Fluid (A) < 3000 /uL; Source Pleural Fluid LEFT LUNG; WBC Pleural Fluid (A) 972 /uL
[2020-01-23 13:28] LABS: Eosinophils, Fluid 2 %; Lymphocytes, Fluid 78 %; Mono,Macrophage,Mesothelial 19 %; Neutrophils, Fluid 1 %
--- NOTE | 2020-01-23 14:08 | Pharmacy Report ---
Pharmacy Glycemic Short Note 2 - Date of Service January 23, 2020 - Glycemic Short BSG Results (Last 24 hours): 01/22/20 01/22/20 01/22/20 15:22 21:45 22:21 Glucose 111 H POC Glucose 81 100 H 01/23/20 01/23/20 01/23/20 00:01 04:22 05:46 Glucose 97 POC Glucose 98 75 01/23/20 01/23/20 07:59 12:24 Glucose POC Glucose 110 H 154 H OUTPATIENT ANTIDIABETIC REGIMEN: * Tresiba 10 units daily ASSESSMENT: * 64 year old male admitted with possible pneumonia. ESRD on HD. Type 2 diabetic managed on tresiba at home. Follows [place] [facility]ology outpatient for DM management. Last seen 01/07 and tresiba 10 units daily started. No other short acting or NPH to be continued from last visit, only tresiba alone * Fasting BSG this AM 97 mg/dL - continue short acting insulin. Was unable to verify with patient last tresiba dose given, held dose this AM and will have scale for basal insulin at HS PLAN FOR INPATIENT GLYCEMIC CONTROL: * Hold outpatient oral diabetes medications * Basal insulin * Lantus 0-10 units at HS based upon BSG value * Bolus insulin * NovoLog per scale ACHS or Q6hrs while NPO * Goal Range: Low 120 mg/dL - High 150 mg/dL * Correction Factor: 25 mg/dL/unit * Nutritional / Prandial insulin per carb ratio of 1 unit per 8 grams CHO consumed
--- NOTE | 2020-01-23 14:23 | Nephrology Consultation ---
Date of Consultation January 23, 2020 Assessment & Plan (1) ESRD (end stage renal disease) on dialysis: * Currently patient is near his EDW of 113 kg. He has just undergone L thoracentesis * SaO2 95% on 2 L NC. No respiratory distress. Electrolyte balance is acceptable. Completed 3.5 hr HD yesterday - no acute indication for HD today * Will schedule next HD for am * Monitor UO, continue oral diuretic to help limit interdialytic fluid gain * Outpatient HD Rx: TTS at [facility] 4hr 15min, 3k 2.5Ca 1Mg F-250NR EDW 113kg, access L upper arm AVF (2) Left lower lobe pneumonia: * On empiric vanco & cefipime * Await thoracentesis culture and cytology results * Await results of swallowing study (aspiration?) (3) Diarrhea: * Consider stool testing for C. difficile toxin, O&P (4) Debilitated: * HD licensed staff mft reports that patient presented to HD disheveled w/ soiled clothes. Recommend consultation w/ social worker psychiatric to determine whether patient requires home health assistance or SNF at time of discharge History of Present Illness Reason for Consultation: ESRD on HD Attending Physician: Van Crowley History of Present Illness Mr. Patiño is a 64 year old white male who is seen at the request of Dr. Espitia to provide HD and assist w/ medical management during his hospitalization. Medical records in the EMR were reviewed today and are summarized as follows: Mr. Patiño has ESRD due to diabetic nephropathy. He dialyzes TTS at [facility] under the care of Dr. Francis (4hr 15min, 3k 2.5Ca 1Mg F-250NR EDW 113kg, access L upper arm AVF). Mr. Patiño's medical history is significant for AODM, JANET, ASCVD, current tobacco use, hypothyroidism, obesity. I did call the outpatient HD unit this afternoon. licensed staff mft reports that yesterday Mr. Patiño presented to dialysis disheveled and complaining of diarrhea. He had suffered a mechanical fall at home but had not injured himself. licensed staff mft weighed him and found him to be 9 kg above his EDW. Dialysis was performed and 7 L UF attempted but treatment was stopped after 3.5 hours due to hypotension (SBP 70's) and lethargy. ED evaluation revealed mild CHF w/ a moderate L pleural effusion. Mr. Patiño was admitted for medical management of LLL pneumonia and pulmonology has been consulted for thoracentesis. Patient did test negative for COVID-19. Allergies Allergy/AdvReac Type Severity Reaction Status Date / Time milk AdvReac Intermediate Gastrointestinal Verified 01/22/20 16:26 Upset Home Medications Home Medications Medication Instructions Recorded Confirmed Type aspirin 81 mg PO QPM 12/22/17 01/22/20 History econazole 1 applic TOPICAL BID 12/22/17 01/22/20 History nitroglycerin See Rx Instructions .ROUTE 12/22/17 01/22/20 History .COMPLEX PRN ondansetron 8 mg PO BID PRN 12/22/17 01/22/20 History buspirone 10 mg PO BID 01/27/18 01/22/20 History FreeStyle Virgil 14 Day Sensor #6 ea NS 02/05/19 11/26/19 Rx losartan 50 mg tablet 50 mg PO DAILY 02/05/19 01/22/20 History pen needle, diabetic 32 gauge x #100 ea 02/05/19 11/26/19 Rx 1/4" insulin degludec 100 unit/mL (3 10 units SQ DAILY ml 05/28/19 01/22/20 History mL) subcutaneous pen Wheelchair (Manual or Powered) #1 ea 09/11/19 11/26/19 Rx gabapentin 100 mg capsule 300 mg PO HS cap 09/21/19 01/22/20 History carvedilol 3.125 mg tablet 3.125 mg PO BID #60 tab 12/04/19 01/22/20 Rx escitalopram oxalate 5 mg tablet 5 mg PO DAILY 01/09/20 01/22/20 History amlodipine 10 mg tablet 10 mg PO QPM #90 tab 01/17/20 01/22/20 Rx calcium acetate(phosphat bind) 2,001 mg PO TIDM 01/22/20 01/22/20 History calcium carbonate [Calcium 500] 500 mg PO DAILY 01/22/20 01/22/20 History ergocalciferol (vitamin D2) 1,250 mcg PO WK 01/22/20 01/22/20 History [Vitamin D2] furosemide [Lasix] 80 mg PO BID 01/22/20 01/22/20 History levothyroxine 125 mcg PO DAILYBB 01/22/20 01/22/20 History mv,Oa-[id number]-jiv-epa-fish 1 cap PO QDD 01/22/20 01/22/20 History [ProRenal QD] nicotine 1 patch TRANSDERMAL DAILY 01/22/20 01/22/20 History omeprazole 20 mg PO DAILYBB 01/22/20 01/22/20 History Patient History Medical History Anxiety GERD (gastroesophageal reflux disease) Hyperlipidemia On home oxygen therapy 2L n/c with cpap at Osteoarthritis Peripheral neuropathy bilt legs/feet Pleural effusion, left Surgical History History of bilateral cataract extraction History of cardiac cath 01/2018 "about 2-3 weeks"; no stents placed @ [facility] by Dr. Coronel History of carpal tunnel release R wrist History of colonoscopy History of repair of anterior cruciate ligament of left knee History of repair of anterior cruciate ligament of right knee History of tonsillectomy History of tooth extraction wisdom teeth Family History Mother Family history of diabetes mellitus Grandmother Family history of diabetes mellitus maternal Other Colorectal cancer Inflammatory bowel disease Melanoma Social History Smoking Status: Current every day smoker Cigarettes Per Day: 15 a day; Second Hand Exposure: No; Do You Dip or Chew Tobacco: Yes; Tobacco Cessation Education Requested by Patient: No Hx Alcohol Use: Yes Alcohol type: beer Hx Substance Use: No Preferred Language: Greek Communication Ability: Effective Child Health Associate Required: No Beliefs That Will Affect Care: None marital status: Single Current Living Situation: Family Current Living Situation Comment: lives with sonAshish Other Information That Helps Us Care for You: No Feels Safe at Home: Yes Safety Concerns: Feels Safe At This Time Assistive Devices: CPAP and Wheelchair Assistive Devices Comment: 2L O2 bled into CPAP at night Review of Systems Constitutional: + weakness; no fever Eyes: no problem reported Ear, Nose, Mouth, Throat: no problem reported Respiratory: + dyspnea Cardiovascular: no chest pain and no palpitations Gastrointestinal: + diarrhea/loose stools; no abdominal pain Musculoskeletal: no back pain Integumentary: no rash Neurologic: + falls Physical Exam Constitutional: obese, chronically ill appearing Eyes: PERRL, conjunctivae normal, anicteric sclerae ENMT: external ear and nose normal, oropharynx normal Neck: trachea midline, no thyromegaly Respiratory: no respiratory distress diminished BS at L base Cardiovascular: Rate/Rhythm: regular rate and regular rhythm Heart Sounds: no cardiac rub Gastrointestinal (Abdomen): normal bowel sounds, soft, nontender, no hep atosplenomegaly Musculoskeletal: Extremities: no cyanosis Skin: no rashes, warm and dry Neurologic: awake Results & Data ([facility]) Vital Signs (Past 12 Hours) Vital Signs Temp Pulse Pulse Resp BP Pulse Ox 01/23/20 07:56 36.6 C 56 L 16 133/66 95 01/23/20 07:29 52 L 18 98 01/23/20 03:20 59 L 14 99 Laboratory Results Laboratory Tests 01/22/20 01/23/20 01/23/20 15:22 05:46 05:46 WBC 12.90 H Hgb 13.3 L Hct 39.0 L Plt Count 241 Sodium 136 Potassium 3.3 L Chloride 97 L Carbon Dioxide 35 H BUN 51 H Creatinine 5.21 H* D Estimat Average Glucose 338 PG Care Time/CCT Total # of Minutes Spent Total Time Spent with Patient: Total time spent is greater than 50% in coordination of care (as documented) at patient's floor/unit and/or counseling patient: Coding Level of Care Code 42452 Inpt Consult Level 5 Diagnoses ESRD (end stage renal disease) on dialysis N18.6; Z99.2 Left lower lobe pneumonia J18.9 Diarrhea R19.7 Debilitated R53.81
[2020-01-23] MEDS ORDERED: CEFEPIME 1,000 MG in SYRINGE 0 ML IV SCH (17:00)
[2020-01-23] MEDS ORDERED: VANCOMYCIN HCL 500 MG in 0.9 % SODIUM CHLORIDE 100 ML IV ONE (18:00)
[2020-01-23] MEDS: NICOTINE 21 MG/24 HR TDSY TD SCH (19:40)
[2020-01-23] MEDS: GABAPENTIN 300 MG CAP PO SCH (20:29)
[2020-01-23] MEDS: amLODIPine BESYLATE 5 MG TAB PO SCH (20:29)
[2020-01-23] MEDS: ASPIRIN 81 MG ECTAB PO SCH (20:30)
[2020-01-23] MEDS ORDERED: INSULIN GLARGINE SOLOSTAR 100 UNITS/ML 3 ML PEN SC SCH (21:00)
--- NOTE | 2020-01-23 22:55 | Hospitalist Progress Note ---
Date of Service January 23, 2020 Assessment & Plan (1) Metabolic encephalopathy: Patient is similar although the duration of her baseline of some forgetfulness. Unsure as to the cause as patient is improving. Being treated with vanco and cefepime. Will transition to ceftriaxone and perhaps azithromycin. However, he does not appear clinically to have an empyema and pneumaonia. will await thoracocenthesis. (2) Diarrhea: Patient's diarrhea is currently being tested for infectious etiologies if positive will be treated appropriately (3) LLL pneumonia: as stated above. will continue to treat. (4) CKD (chronic kidney disease), stage IV: Patient is on renal replacement therapy consultation Dr. Rachel service will be undertaken for continued treatment while in the hospital (5) Diabetes mellitus: Patient has a unusual sliding scale regimen at home taking Tresiba 10 a day insulin NPH sliding scale. We will convert him to more standard basal bolus insulin while in the hospital we will continue gabapentin for diabetic neuropathy (6) Depression: Patient continues on Lexapro and BuSpar therapy (7) Hypertension: Patient is on amlodipine losartan 50 carvedilol 3.25 twice daily and Lasix 80 twice daily (8) Hypothyroidism: TSH is appropriate on presentation Synthroid continues at 125 (9) Obstructive sleep apnea: Patient will be supplied with BiPAP tonight he typically has urine at home which she did not bring with him (10) Tobacco abuse: Patient was queried regarding his tobacco abuse. The patient does not seem interested in stopping. He is currently using nicotine sublingual and buccal packets. He did not wish to have a nicotine patch one was ordered for him. He did request outside to smoke a was informed he was not allowed to go outside Admission and Anticipated Discharge Date Admission Date: January 22, 2020 Subjective Patient just came back to the room after smoking outside. He is requesting an increase in the dosage of his nicotine patch. He reports he is breathing better after the fluid was removed from his lung. Review of Systems Review of Systems: Mild distress and fatigue seems to be chronic no headache, blurry or double vision no speech or swallowing issues no chest pain, pressure or palpitations no shortness of breath, cough or wheezes no abdominal pain, nausea or vomiting,does have some diarrhea no dysuria, hematuria or frequency no focal joint pain b/l lower leg swelling no back pain, CVA tenderness or radicular pain no bruising, bleeding or rashes no focal signs of weakness or numbness or altered sensation no complaints of anxiety or depression. Physical Exam Physical Exam: The patient chronically slightly volume overloaded Vital signs as documented. Head exam is normocephalic atraumatic no scleral icterus Neck is without JVD, thyromegaly, or carotid bruits. Lungs are clear to auscultation, no focal loss of breath sounds Cardiac exam, Rhythm is regular.. No murmurs, rubs or gallops. Abdominal exam reveals normal bowel sounds, soft non tender, no masses Extremities are nonedematous and both pedal pulses are present Neurologic exam is alert and oriented, no focal loss of strength or sensation Skin is with bruises nad some injuries in various stages of healing Psychologically is with concerns for memory loss Results & Data Results & Data ([facility]) Vital Signs (Past 12 Hours) Vital Signs Temp Pulse Pulse Resp BP Pulse Ox 01/23/20 22:22 62 18 98 01/23/20 20:26 66 145/72 H 01/23/20 15:36 37.2 C 57 L 16 127/62 97 PG Care Time/CCT Total # of Minutes Spent Total Time Spent with Patient: Total time spent is greater than 50% in coordination of care (as documented) at patient's floor/unit and/or counseling patient: Coding Level of Care Code 28797 Subseq Hosp Care Lvl 3 Diagnoses Metabolic encephalopathy G93.41 Diarrhea R19.7 LLL pneumonia J18.9 CKD (chronic kidney disease), stage IV N18.4 Diabetes mellitus E11.9 Depression F32.9 Hypertension I10 Hypothyroidism E03.9 Obstructive sleep apnea G47.33 Tobacco abuse Z72.0 Time Spent (min) 35
[2020-01-24] MEDS: LEVOTHYROXINE SODIUM 125 MCG TABLET PO SCH (05:41)
[2020-01-24] MEDS: PANTOprazole 40 MG TAB PO SCH (05:41)
[2020-01-24] MEDS ORDERED: SODIUM CHLORIDE 0.9% 1000ML 1,000 ML IV PRN (07:00)
[2020-01-24] MEDS ORDERED: HEPARIN SOD (PORCINE) 1000 UNIT/ML 10 ML VIAL IV SCH (07:00)
[2020-01-24 07:13] LABS: BUN Creatinine Ratio 9.4 (10-20); Calcium 8.8 mg/dl (8.5-10.1); Creatinine Clr Calc Pharmacy 12.7 ml/min; Est GFR (African American) 8.2; Est GFR (Non-African American) 7.1
[2020-01-24 08:59] LABS: Mean Corpuscular Hemoglobin 31.4 pg (25-34); Mean Corpuscular Hgb Conc 33.3 g/dL (32-36); Mean Corpuscular Volume 94.2 fL (80-100); Platelet Count 257 K/uL (130-400); Red Blood Count 4.14 M/uL (4.7-6.1); White Blood Count 10.67 K/uL (4.8-10.8)
[2020-01-24] MEDS: busPIRone 5 MG TAB PO SCH ×2 (09:00→20:58)
[2020-01-24] MEDS ORDERED: INSULIN GLARGINE SOLOSTAR 100 UNITS/ML 3 ML PEN SC SCH (09:00)
[2020-01-24] MEDS: INSULIN ASPART 100 UNITS/ML 3 ML PEN SC SCH ×4 (09:00→21:00)
[2020-01-24] MEDS: NICOTINE 21 MG/24 HR TDSY TD SCH (09:01)
[2020-01-24] MEDS: HEPARIN SOD (PORCINE) 1000 UNIT/ML 10 ML VIAL IV SCH ×2 (10:20→11:20)
--- NOTE | 2020-01-24 10:24 | Nephrology Progress Note ---
Date of Service January 24, 2020 Assessment & Plan (1) ESRD (end stage renal disease) on dialysis: * HD today. Will attempt 2 L UF to attain EDW 113 kg * Monitor UO, continue oral diuretic to help limit interdialytic fluid gain * Outpatient HD Rx: TTS at [facility] 4hr 15min, 3k 2.5Ca 1Mg F-250NR EDW 113kg, access L upper arm AVF (2) Left lower lobe pneumonia: * On empiric ceftriaxone therapy * Pleural cytology negative for malignancy * Await results of swallowing study (aspiration?) (3) Debilitated: * HD staffing administrator reports that patient presented to HD disheveled w/ soiled clothes. Case management has met w/ patient. He declines rehab or home health. He wishes to return to home upon discharge Admission and Anticipated Discharge Date Admission Date: January 22, 2020 Subjective Mr. Patiño was seen & examined in his hospital room this morning. He denied fever, dyspnea or diarrhea. He voiced no medical concerns Review of Systems Constitutional: + weakness; no fever Eyes: no problem reported Ear, Nose, Mouth, Throat: no problem reported Respiratory: + dyspnea Cardiovascular: no chest pain Gastrointestinal: no abdominal pain and no diarrhea/loose stools Musculoskeletal: no back pain Integumentary: no rash Physical Exam Eyes: PERRL, conjunctivae normal, anicteric sclerae ENMT: external ear and nose normal, oropharynx normal Neck: trachea midline, no thyromegaly Respiratory: no respiratory distress Cardiovascular: Rate/Rhythm: regular rate and regular rhythm Heart Sounds: no cardiac rub Gastrointestinal (Abdomen): normal bowel sounds, soft, nontender, no hepatosplenomegaly Musculoskeletal: Extremities: no cyanosis Skin: no rashes, warm and dry Neurologic: awake Results & Data ([facility]) Vital Signs (Past 12 Hours) Vital Signs Temp Pulse Pulse Pulse Resp BP BP 01/24/20 10:09 53 L 98/43 L 01/24/20 10:00 54 L 89/59 L 01/24/20 09:40 52 L 113/57 L 01/24/20 09:26 55 L 116/52 L 01/24/20 09:16 36.7 C 54 L 01/24/20 07:55 36.6 C 59 L 18 133/66 01/24/20 03:25 67 20 01/24/20 00:01 37.0 C 64 16 132/66 01/23/20 22:22 62 18 Pulse Ox 01/24/20 10:09 01/24/20 10:00 01/24/20 09:40 01/24/20 09:26 01/24/20 09:16 01/24/20 07:55 95 01/24/20 03:25 96 01/24/20 00:01 94 01/23/20 22:22 98 Laboratory Results Laboratory Tests 01/24/20 06:04 Sodium 132 L Potassium 4.0 D Chloride 95 L Carbon Dioxide 29 BUN 69 H Creatinine 7.37 H* D Glucose 199 H PG Care Time/CCT Total # of Minutes Spent Total Time Spent with Patient: Total time spent is greater than 50% in coordination of care (as documented) at patient's floor/unit and/or counseling patient: Coding Level of Care Code 07356 Subseq Hosp Care Lvl 3 Diagnoses ESRD (end stage renal disease) on dialysis N18.6; Z99.2 Left lower lobe pneumonia J18.9 Debilitated R53.81
--- NOTE | 2020-01-24 11:18 | Electrocardiogram Report ---
Test Reason : Blood Pressure : / mmHG Vent. Rate : 052 BPM Atrial Rate : 052 BPM P-R Int : 228 ms QRS Dur : 092 ms QT Int : 516 ms P-R-T Axes : 040 -75 056 degrees QTc Int : 479 ms Sinus bradycardia with 1st degree A-V block Low voltage QRS Left anterior fascicular block Poor R wave progression, consider anterior DE vs. lead placement vs. LVH Abnormal ECG When compared with ECG of 22-JAN-2020 15:18, Left anterior fascicular block is now Present Confirmed by Juan Jung ([id number]) on 01/24/2020 11:18:00 AM Referred By: REFERRED SELF Confirmed By:Juan Jung
--- NOTE | 2020-01-24 13:57 | Pharmacy Report ---
Pharmacy Glycemic Short Note 2 - Date of Service January 24, 2020 - Glycemic Short BSG Results (Last 24 hours): 01/23/20 01/23/20 01/24/20 17:18 20:34 06:04 Glucose 199 H POC Glucose 131 H 175 H 01/24/20 08:06 Glucose POC Glucose 223 H OUTPATIENT ANTIDIABETIC REGIMEN: * Tresiba 10 units daily * A1c = 14.2% (01/31/19) * However, this result is likely somewhat unreliable in ESRD patients d/t interactions between the A1c analyzing technique and high levels of urea in ESRD, reduced RBC life span, iron deficiency anemia, and EPO administration. HbA1c > 7.5% in ESRD patient may overestimate the extent of hyperglycemia in ESRD patients. ASSESSMENT: 01/23: * Maxx received 10 units of bolus insulin yesterday, no basal with adequate glycemic control. * Fasting BSG elevated this morning (from 97 mg/dL on 01/22 to 223 mg/dL today). Patient has had no basal insulin thus far this admission. * Patient currently at HD. No changes to risk factors for insulin resistance. * Changes needed to regimen: * Schedule a dose of basal insulin for this morning * Novolog parameters appear to be appropriate at this time 01/22: * 64 year old male admitted with possible pneumonia. ESRD on HD. Type 2 diabetic managed on tresiba at home. Follows [place] [facility] outpatient for DM management. Last seen 01/07 and tresiba 10 units daily started. No other short acting or NPH to be continued from last visit, only tresiba alone * Fasting BSG this AM 97 mg/dL - continue short acting insulin. Was unable to verify with patient last tresiba dose given, held dose this AM and will have scale for basal insulin at PLAN FOR INPATIENT GLYCEMIC CONTROL: * Hold outpatient oral diabetes medications * Basal insulin * Start Lantus 10 units SQ qAM * Bolus insulin * NovoLog per scale ACHS or Q6hrs while NPO * Goal Range: Low 120 mg/dL - High 150 mg/dL * Correction Factor: 25 mg/dL/unit * Nutritional / Prandial insulin per carb ratio of 1 unit per 8 grams CHO consumed PLAN FOR DISCHARGE: * A1c unreliable in ESRD. Recommend monitoring blood sugars at home and using this data to determine degree of glycemic control. * Continue dose titration per [facility] - Endocrinology
[2020-01-24] MEDS: CALCIUM ACETATE 667 MG CAP/TAB PO SCH ×3 (14:26→18:01)
[2020-01-24] MEDS: FUROSEMIDE 80 MG TAB PO SCH ×2 (14:33→18:01)
[2020-01-24] MEDS: carvediloL 3.125 MG TAB PO SCH ×2 (14:33→20:57)
[2020-01-24] MEDS: CALCIUM CARBONATE 1250MG TAB PO SCH (14:34)
[2020-01-24] MEDS: ESCITALOPRAM OXALATE 10 MG TAB PO SCH (14:34)
[2020-01-24] MEDS: LOSARTAN POTASSIUM 50 MG TAB PO SCH (14:35)
[2020-01-24] MEDS: cefTRIAXone SODIUM 2,000 MG in DEXTROSE 5% 50 ML IV SCH (18:11)
[2020-01-24] MEDS: GABAPENTIN 300 MG CAP PO SCH (20:56)
[2020-01-24] MEDS: ASPIRIN 81 MG ECTAB PO SCH (20:57)
[2020-01-24] MEDS: amLODIPine BESYLATE 5 MG TAB PO SCH (20:58)
--- NOTE | 2020-01-24 23:19 | Hospitalist Progress Note ---
Date of Service January 24, 2020 Assessment & Plan (1) Metabolic encephalopathy: Patient is similar although the duration of her baseline of some forgetfulness. Unsure as to the cause as patient is improving. Thoracocenthesis rules out empyema. D/W pulmnary doubt infectious cause, may consider finish 7 days of antibiotics, likely a cephalosporin. will hold of atypical coverage. He does appear to be clinically improving. likely has JANET,Obesity hypoventilatory syndrome. Patient also continues to smoke, perhaps this was the main culprit with his agitation that brought him in. (2) Diarrhea: improved. Do not see tests for this. will monitor for now. (3) LLL pneumonia: as stated above. will continue to treat. (4) CKD (chronic kidney disease), stage IV: Patient is on renal replacement therapy consultation Dr. Rachel service will be undertaken for continued treatment while in the hospital Had HD today. (5) Diabetes mellitus: Patient has a unusual sliding scale regimen at home taking Tresiba 10 a day insulin NPH sliding scale. We will convert him to more standard basal bolus insulin while in the hospital we will continue gabapentin for diabetic neuropathy (6) Depression: Patient continues on Lexapro and BuSpar therapy (7) Hypertension: Patient is on amlodipine losartan 50 carvedilol 3.25 twice daily and Lasix 80 twice daily (8) Hypothyroidism: TSH is appropriate on presentation Synthroid continues at 125 (9) Obstructive sleep apnea: Patient will be supplied with BiPAP tonight he typically has urine at home which she did not bring with him (10) Tobacco abuse: increased nicotine patch to 21 mg. Patient tolerated this. No longer wants to leave premise and smoke Admission and Anticipated Discharge Date Admission Date: January 22, 2020 Subjective 64 yo male reports feeling better today. Review of Systems Review of Systems: All systems reviewed & are unremarkable except as noted in HPI & below Physical Exam Physical Exam: Vital signs as documented. Head exam is normocephalic atraumatic no scleral icterus Neck is without JVD, thyromegaly, or carotid bruits. Lungs are clear to auscultation, no focal loss of breath sounds Cardiac exam, Rhythm is regular.. No murmurs, rubs or gallops. Abdominal exam reveals normal bowel sounds, soft non tender, no masses Extremities are nonedematous and both pedal pulses are present Neurologic exam is alert and oriented, no focal loss of strength or sensation Results & Data Results & Data ([facility]) Vital Signs (Past 12 Hours) Vital Signs Temp Pulse Pulse Pulse Resp BP BP 01/24/20 15:45 37.1 C 57 L 16 145/73 H 01/24/20 14:05 37.0 C 58 L 135/60 01/24/20 13:20 55 L 111/52 L 01/24/20 13:00 58 L 122/73 01/24/20 12:40 60 97/52 L 01/24/20 12:20 53 L 121/56 L 01/24/20 12:00 52 L 124/56 L 01/24/20 11:40 53 L 115/53 L 01/24/20 11:20 52 L 117/51 L Pulse Ox 01/24/20 15:45 97 01/24/20 14:05 01/24/20 13:20 01/24/20 13:00 01/24/20 12:40 01/24/20 12:20 01/24/20 12:00 01/24/20 11:40 01/24/20 11:20 PG Care Time/CCT Total # of Minutes Spent Total Time Spent with Patient: Total time spent is greater than 50% in coordina tion of care (as documented) at patient's floor/unit and/or counseling patient: Coding Level of Care Code 08819 Subseq Hosp Care Lvl 3 Diagnoses Metabolic encephalopathy G93.41 Diarrhea R19.7 LLL pneumonia J18.9 CKD (chronic kidney disease), stage IV N18.4 Diabetes mellitus E11.9 Depression F32.9 Hypertension I10 Hypothyroidism E03.9 Obstructive sleep apnea G47.33 Tobacco abuse Z72.0 Time Spent (min) 35
[2020-01-25] MEDS: LEVOTHYROXINE SODIUM 125 MCG TABLET PO SCH (05:30)
[2020-01-25] MEDS: PANTOprazole 40 MG TAB PO SCH (05:31)
[2020-01-25 07:44] LABS: Calcium 8.7 mg/dl (8.5-10.1); Creatinine Clr Calc Pharmacy 15.9 ml/min; Est GFR (African American) 10.9; Est GFR (Non-African American) 9.4; Potassium 3.8 mmol/L (3.5-5.1)
[2020-01-25] MEDS: CALCIUM ACETATE 667 MG CAP/TAB PO SCH ×3 (08:04→17:35)
[2020-01-25] MEDS: ESCITALOPRAM OXALATE 10 MG TAB PO SCH (08:05)
[2020-01-25] MEDS: LOSARTAN POTASSIUM 50 MG TAB PO SCH (08:05)
[2020-01-25] MEDS: CALCIUM CARBONATE 1250MG TAB PO SCH (08:05)
[2020-01-25] MEDS: FUROSEMIDE 80 MG TAB PO SCH ×2 (08:05→17:29)
[2020-01-25] MEDS: busPIRone 5 MG TAB PO SCH ×2 (08:06→20:35)
[2020-01-25] MEDS: carvediloL 3.125 MG TAB PO SCH ×2 (08:06→20:34)
[2020-01-25] MEDS: NICOTINE 21 MG/24 HR TDSY TD SCH (08:06)
[2020-01-25 08:38] LABS: Hematocrit (blood only) 37.2 % (42-52); Hemoglobin 12.2 g/dL (14.0-18.0); Mean Corpuscular Hemoglobin 31.4 pg (25-34); Mean Corpuscular Hgb Conc 32.8 g/dL (32-36); Mean Corpuscular Volume 95.9 fL (80-100); Platelet Count 229 K/uL (130-400); RDW Coefficient of Variation 13.3 % (11.5-14.5); RDW Standard Deviation 46.3 fL (36.4-46.3); Red Blood Count 3.88 M/uL (4.7-6.1); White Blood Count 9.18 K/uL (4.8-10.8)
[2020-01-25] MEDS: INSULIN GLARGINE SOLOSTAR 100 UNITS/ML 3 ML PEN SC SCH (09:00)
[2020-01-25] MEDS ORDERED: ERGOCALCIFEROL 50,000 UNITS 1250 MCG CAP PO SCH (09:00)
[2020-01-25] MEDS: INSULIN ASPART 100 UNITS/ML 3 ML PEN SC SCH ×4 (09:01→20:43)
--- NOTE | 2020-01-25 11:02 | Nephrology Progress Note ---
Date of Service January 25, 2020 Assessment & Plan (1) ESRD (end stage renal disease) on dialysis: * Volume status & electrolyte balance are acceptable. Will schedule next HD for am according to outpatient dialysis prescription * Outpatient HD Rx: TTS at [facility] [place] 4hr 15min, 3k 2.5Ca 1Mg F-250NR EDW 113kg, access L upper arm AVF * Monitor UO, continue oral diuretic to help limit interdialytic fluid gain (2) Left lower lobe pneumonia: * On empiric ceftriaxone therapy * Pleural cytology negative for malignancy * Await results of swallowing study (aspiration?) (3) Debilitated: * HD property staff accountant reports that patient presented to HD disheveled w/ soiled clothes. Case management has met w/ patient. He declines rehab or home health. He wishes to return to home upon discharge Admission and Anticipated Discharge Date Admission Date: January 22, 2020 Subjective Mr. Patñio was seen & examined in his hospital room this morning. He was dialyzed yesterday for 1.6 L volume removal. UF reduced due to relative hypotension. Mr. Patiño currently denies fever, dyspnea or diarrhea. He voices no medical concerns. He is anxious to go home and smoke cigarettes Review of Systems Constitutional: + weakness; no fever Eyes: no problem reported Ear, Nose, Mouth, Throat: no problem reported Respiratory: no dyspnea Cardiovascular: no chest pain and no edema Gastrointestinal: no abdominal pain, no vomiting and no diarrhea/loose stools Genitourinary: no hematuria Musculoskeletal: no back pain Integumentary: no rash Neurologic: + falls Physical Exam Eyes: PERRL, conjunctivae normal, anicteric sclerae ENMT: external ear and nose normal, oropharynx normal Neck: trachea midline, no thyromegaly Respiratory: no respiratory distress Cardiovascular: Rate/Rhythm: regular rate and regular rhythm Heart Sounds: no cardiac rub Gastrointestinal (Abdomen): normal bowel sounds, soft, nontender, no hepatosplenomegaly Musculoskeletal: Extremities: no cyanosis Skin: no rashes, warm and dry Neurologic: awake Results & Data ([facility]) Vital Signs (Past 12 Hours) Vital Signs Temp Pulse Pulse Resp BP Pulse Ox 01/25/20 07:20 36.5 C 58 L 18 99/55 L 95 01/25/20 03:15 55 L 20 96 01/25/20 00:20 87 20 98 01/24/20 23:21 36.9 C 60 20 128/60 98 Laboratory Results Laboratory Tests 01/25/20 01/25/20 05:58 05:59 WBC 9.18 Hgb 12.2 L Hct 37.2 L Plt Count 229 Sodium 134 L Potassium 3.8 Chloride 99 Carbon Dioxide 27 BUN 41 H Creatinine 5.83 H* D Glucose 191 H PG Care Time/CCT Total # of Minutes Spent Total Time Spent with Patient: Total time spent is greater than 50% in coordination of care (as documented) at patient's floor/unit and/or counseling patient: Coding Level of Care Code 78734 Subseq Hosp Care Lv 3 Diagnoses ESRD (end stage renal disease) on dialysis N18.6; Z99.2 Left lower lobe pneumonia J18.9 Debilitated R53.81
--- NOTE | 2020-01-25 11:54 | Fluoroscopy Report ---
FL video swallow HISTORY: Dysphagia assess for aspiration TECHNIQUE: Video fluoroscopic evaluation of swallowing was performed in the AP and lateral projection s by the speech pathology staff. The patient is fed nectar-thick and thin liquid barium, a barium coa elroy wafer, and barium pudding. FLUOROSCOPY TIME: 2.5 minutes. NUMBER OF FLUOROSCOPY IMAGES: 0 COMPARISON STUDY: None. FINDINGS: When performing serial swallows with thin liquids, there was a single episode of penetratio n and trace aspiration. There was no aspiration or penetration when swallowing nectar thick liquids, pudding, or a cracker with paste. IMPRESSION: 1. Single episode of penetration and trace aspiration when swallowing thin liquids. 2. Please see the speech pathologist report for detailed findings and recommendations. ACT 112: Negative or not required by law. Electronically signed by: Donald Lafleur M.D. 01/25/2020 11:52 AM
[2020-01-25] MEDS ORDERED: INSULIN GLARGINE SOLOSTAR 100 UNITS/ML 3 ML PEN SC ONE (12:15)
--- NOTE | 2020-01-25 15:14 | Pharmacy Report ---
Pharmacy Glycemic Short Note 2 - Date of Service January 25, 2020 - Glycemic Short BSG Results (Last 24 hours): 01/24/20 01/24/20 01/25/20 17:25 20:52 05:58 Glucose 191 H POC Glucose 151 H 187 H 01/25/20 01/25/20 08:14 11:57 Glucose POC Glucose 202 H 209 H OUTPATIENT ANTIDIABETIC REGIMEN: * Tresiba 10 units daily * A1c = 14.2% (01/31/19) * However, this result is likely somewhat unreliable in ESRD patients d/t interactions between the A1c analyzing technique and high levels of urea in ESRD, reduced RBC life span, iron deficiency anemia, and EPO administration. HbA1c > 7.5% in ESRD patient may overestimate the extent of hyperglycemia in ESRD patients. ASSESSMENT: 01/24: * Maxx received 27 units of insulin yesterday (10 units basal and 17 units bolus). Insulin needs continue to trend upward. * Fasting BSG elevated x 2 days. I increased Lantus from 10 to 16 units SQ qAM, however RN expressed concern that patient did not receive full AM dose today. While injection was being given, patient moved abruptly interfering with the administration. Since BSG was still > 200 mg/dL at lunchtime I entered a separate order for 10 units to be given x 1 to make up for suspected partial dose. * Post prandial BSGs are acceptable. Continue current novolog parameters. 01/23: * Maxx received 10 units of bolus insulin yesterday, no basal with adequate glycemic control. * Fasting BSG elevated this morning (from 97 mg/dL on 01/22 to 223 mg/dL today). Patient has had no basal insulin thus far this admission. * Patient currently at HD. No changes to risk factors for insulin resistance. * Changes needed to regimen: * Schedule a dose of basal insulin for this morning * Novolog parameters appear to be appropriate at this time 01/22: * 64 year old male admitted with possible pneumonia. ESRD on HD. Type 2 diabetic managed on tresiba at home. Follows [place] [facility] outpatient for DM management. Last seen 01/07 and tresiba 10 units daily started. No other short acting or NPH to be continued from last visit, only tresiba alone * Fasting BSG this AM 97 mg/dL - continue short acting insulin. Was unable to verify with patient last tresiba dose given, held dose this AM and will have scale for basal insulin at HS PLAN FOR INPATIENT GLYCEMIC CONTROL: * Hold outpatient oral diabetes medications * Basal insulin * Increase to Lantus 16 units SQ qAM * Extra 10 units ordered with lunch x 1 (see explanation above) * Bolus insulin * NovoLog per scale ACHS or Q6hrs while NPO * Goal Range: Low 120 mg/dL - High 150 mg/dL * Correction Factor: 25 mg/dL/unit * Nutritional / Prandial insulin per carb ratio of 1 unit per 8 grams CHO consumed PLAN FOR DISCHARGE: * A1c unreliable in ESRD. Recommend monitoring blood sugars at home and using this data to determine degree of glycemic control. * Continue dose titration per [facility] - Endocrinology
[2020-01-25] MEDS: cefTRIAXone SODIUM 2,000 MG in DEXTROSE 5% 50 ML IV SCH (17:30)
--- NOTE | 2020-01-25 18:35 | Hospitalist Progress Note ---
Date of Service January 25, 2020 Assessment & Plan (1) Metabolic encephalopathy: Patient is similar although baseline of some forgetfulness. Unsure as to the cause as patient is improving. Thoracocentesis rules out empyema. D/W pulmonary doubt infectious cause, may consider finish 7 days of antibiotics, likely a cephalosporin. will hold atypical coverage. He does appear to be clinically improving. likely has JANET,Obesity hypoventilatory syndrome. Patient also continues to smoke, perhaps this was the main culprit with his agitation that brought him in. (2) Diarrhea: improved. Do not see tests for this. will monitor for now. (3) LLL pneumonia: as stated above. will continue to treat. (4) CKD (chronic kidney disease), stage IV: Patient is on renal replacement therapy consultation Dr. Rachel service will be undertaken for continued treatment while in the hospital Ongoing HD as per renal (5) Diabetes mellitus: Patient has a unusual sliding scale regimen at home taking Tresiba 10 a day insulin NPH sliding scale. We will convert him to more standard basal bolus insulin while in the hospital we will continue gabapentin for diabetic neuropathy (6) Depression: Patient continues on Lexapro and BuSpar therapy (7) Hypertension: Patient is on amlodipine losartan 50 carvedilol 3.25 twice daily and Lasix 80 twice daily (8) Hypothyroidism: TSH is appropriate on presentation Synthroid continues at 125 (9) Obstructive sleep apnea: Patient will be supplied with BiPAP tonight he typically has urine at home which she did not bring with him (10) Tobacco abuse: increased nicotine patch to 21 mg. Patient tolerated this. Admission and Anticipated Discharge Date Admission Date: January 22, 2020 Subjective Pt states he feels fine. He would like to go home. He wants to be able to smoke. He is eating. Pt denies fever, SOB, chest pain, abd pain, n/v/c/d, LE pain or swelling. Review of Systems Review of Systems: Pertinent positives and negatives reviewed in HPI--all others negative Physical Exam Constitutional: WD/WN, vitals as above Eyes: normal visual lua by confrontation and + anicteric sclerae Neck: normal visual inspection and trachea midline Respiratory: normal respiratory effort, lungs clear to auscultation Cardiovascular: Rate/Rhythm: regular rate and regular rhythm Gastrointestinal (Abdomen): Inspection/Auscultation: abdomen not distended Percussion/Palpation: abdomen soft; abdomen nontender Musculoskeletal: Head/Neck/Chest: normocephalic and head atraumatic ne gative for edema, peripheral pulses intact Skin: no rashes, warm and dry Neurologic: awake; not confused Speech / Cognition: normal speech Psychiatric: A+Ox3, euthymic affect Results & Data Results & Data ([facility]) Vital Signs (Past 12 Hours) Vital Signs Temp Pulse Resp BP Pulse Ox 01/25/20 15:37 37.1 C 57 L 16 133/60 95 01/25/20 07:20 36.5 C 58 L 18 99/55 L 95 PG Care Time/CCT Total # of Minutes Spent Total Time Spent with Patient: Total time spent is greater than 50% in coordination of care (as documented) at patient's floor/unit and/or counseling patient: Coding Level of Care Code 29326 Subseq Hosp Care Lvl 3 Diagnoses Metabolic encephalopathy G93.41 Diarrhea R19.7 LLL pneumonia J18.9 CKD (chronic kidney disease), stage IV N18.4 Diabetes mellitus E11.9 Depression F32.9 Hypertension I10 Hypothyroidism E03.9 Obstructive sleep apnea G47.33 Tobacco abuse Z72.0
[2020-01-25] MEDS: GABAPENTIN 300 MG CAP PO SCH (20:34)
[2020-01-25] MEDS: amLODIPine BESYLATE 5 MG TAB PO SCH (20:35)
[2020-01-25] MEDS: ASPIRIN 81 MG ECTAB PO SCH (20:37)
[2020-01-26] MEDS: PANTOprazole 40 MG TAB PO SCH ×2 (06:03→08:26)
[2020-01-26] MEDS: LEVOTHYROXINE SODIUM 125 MCG TABLET PO SCH (06:03)
[2020-01-26 06:57] LABS: Hematocrit (blood only) 37.2 % (42-52); Hemoglobin 12.2 g/dL (14.0-18.0); Mean Corpuscular Hemoglobin 31.1 pg (25-34); Mean Corpuscular Hgb Conc 32.8 g/dL (32-36); Mean Corpuscular Volume 94.9 fL (80-100); Mean Platelet Volume 10.7 fL (7.4-10.4); Platelet Count 238 K/uL (130-400); RDW Coefficient of Variation 13.2 % (11.5-14.5); RDW Standard Deviation 45.4 fL (36.4-46.3); Red Blood Count 3.92 M/uL (4.7-6.1); White Blood Count 9.56 K/uL (4.8-10.8)
[2020-01-26] MEDS ORDERED: HEPARIN SOD (PORCINE) 1000 UNIT/ML 10 ML VIAL IV ONE (07:00)
[2020-01-26] MEDS ORDERED: SODIUM CHLORIDE 0.9% 1000ML 1,000 ML IV PRN (07:00)
[2020-01-26 07:36] LABS: BUN Creatinine Ratio 7.4 (10-20); Calcium 9.1 mg/dl (8.5-10.1); Creatinine Clr Calc Pharmacy 11.8 ml/min; Est GFR (African American) 7.6; Est GFR (Non-African American) 6.6; Potassium 4.1 mmol/L (3.5-5.1)
[2020-01-26] MEDS: NICOTINE 21 MG/24 HR TDSY TD SCH (08:23)
[2020-01-26] MEDS: ESCITALOPRAM OXALATE 10 MG TAB PO SCH (08:25)
[2020-01-26] MEDS: FUROSEMIDE 80 MG TAB PO SCH ×2 (08:25→16:36)
[2020-01-26] MEDS: CALCIUM ACETATE 667 MG CAP/TAB PO SCH ×3 (08:25→16:36)
[2020-01-26] MEDS: busPIRone 5 MG TAB PO SCH ×2 (08:26→22:31)
[2020-01-26] MEDS: CALCIUM CARBONATE 1250MG TAB PO SCH (08:26)
[2020-01-26] MEDS: LOSARTAN POTASSIUM 50 MG TAB PO SCH (08:27)
[2020-01-26] MEDS: INSULIN GLARGINE SOLOSTAR 100 UNITS/ML 3 ML PEN SC SCH (08:27)
[2020-01-26] MEDS: carvediloL 3.125 MG TAB PO SCH ×2 (08:27→22:30)
[2020-01-26] MEDS: INSULIN ASPART 100 UNITS/ML 3 ML PEN SC SCH ×5 (09:03→22:44)
--- NOTE | 2020-01-26 13:33 | Nephrology Progress Note ---
Date of Service January 26, 2020 Assessment & Plan (1) ESRD (end stage renal disease) on dialysis: Sebastián has end-stage renal disease on hemodialysis TTS admitted to the hospital with acute confusion hypotension and generalized weakness. Was diagnosed with pleural effusion on left lower lobe pneumonia. -- Tolerating dialysis today, tolerating UF, blood pressure stable, close to his estimated dry weight -- dose medications for GFR less than 10 -- okay to be discharged from Nephrology standpoint, when medically stable will follow up (2) Weakness: (3) Acute confusion: (4) Pleural effusion, left: (5) Diabetes mellitus: (6) Anemia in chronic kidney disease: (7) Secondary hyperparathyroidism of renal origin: Admission and Anticipated Discharge Date Admission Date: January 22, 2020 Subjective Sebastián was seen and examined during hemodialysis treatment this morning. He has been tolerating dialysis well, blood pressure has been stable, denies any other symptom. Review of Systems Review of Systems: All systems reviewed & are unremarkable except as noted in HPI & below Physical Exam Constitutional: WD/WN, vitals as above + obese; no acute distress Respiratory: normal respiratory effort, lungs clear to auscultation Cardiovascular: RRR, no murmur, no edema Neurologic: moves all extremities and awake; not confused Psychiatric: A+Ox3, euthymic affect Results & Data ([facility]) Vital Signs (Past 12 Hours) Vital Signs Temp Pulse Pulse Pulse Resp BP BP 01/26/20 13:20 56 L 113/63 01/26/20 13:00 55 L 122/68 01/26/20 12:40 56 L 123/68 01/26/20 12:20 26 L 120/58 L 01/26/20 12:00 50 L 106/52 L 01/26/20 11:40 55 L 113/57 L 01/26/20 11:20 57 L 121/52 L 01/26/20 11:00 50 L 106/52 L 01/26/20 10:40 59 L 124/60 01/26/20 10:20 61 124/63 01/26/20 10:00 37.0 C 61 01/26/20 07:39 36.7 C 61 18 105/53 L 01/26/20 04:10 60 18 Pulse Ox 01/26/20 13:20 01/26/20 13:00 01/26/20 12:40 01/26/20 12:20 01/26/20 12:00 01/26/20 11:40 01/26/20 11:20 01/26/20 11:00 01/26/20 10:40 01/26/20 10:20 01/26/20 10:00 01/26/20 07:39 95 01/26/20 04:10 94 PG Care Time/CCT Total # of Minutes Spent Total Time Spent with Patient: Total time spent is greater than 50% in coordination of care (as documented) at patient's floor/unit and/or counseling patient: Coding Level of Care Code 34533 Subseq Hosp Care Lvl 3 Diagnoses ESRD (end stage renal disease) on dialysis N18.6; Z99.2 Weakness R53.1 Acute confusion R41.0 Pleural effusion, left J90 Diabetes mellitus E11.9 Anemia in chronic kidney disease N18.9; D63.1 Secondary hyperparathyroidism of renal origin N25.81
[2020-01-26] MEDS: HEPARIN SOD (PORCINE) 1000 UNIT/ML 10 ML VIAL IV SCH (16:39)
--- NOTE | 2020-01-26 18:42 | Hospitalist Progress Note ---
Date of Service January 26, 2020 Assessment & Plan (1) Metabolic encephalopathy: Patient is similar although baseline of some forgetfulness. Unsure as to the cause as patient is improving. Thoracocentesis rules out empyema. D/W pulmonary doubt infectious cause, may consider finish 7 days of antibiotics, likely a cephalosporin. will hold atypical coverage. He does appear to be clinically improving. likely has JANET,Obesity hypoventilatory syndrome. Patient also continues to smoke, perhaps this was the main culprit with his agitation that brought him in change ceftriaxone to keflex for tonight's dose and monitor Concern for aspiration on admission ST eval with VSS noted for trace aspiration with thin liquids Advised for slippery foods, alternate solids and liquid bites (2) Diarrhea: improved. (3) LLL pneumonia: as stated above. will continue to treat. (4) CKD (chronic kidney disease), stage IV: Patient is on renal replacement therapy consultation Dr. Rachel service will be undertaken for continued treatment while in the hospital Ongoing HD as per renal (5) Diabetes mellitus: Patient has a unusual sliding scale regimen at home taking Tresiba 10 a day insulin NPH sliding scale. Convert to more standard basal bolus insulin while in the hospital Continue gabapentin for diabetic neuropathy (6) Depression: Patient continues on Lexapro and BuSpar therapy (7) Hypertension: Patient is on amlodipine losartan 50 carvedilol 3.25 twice daily and Lasix 80 twice daily (8) Hypothyroidism: TSH is appropriate on presentation Synthroid continues at 125 (9) Obstructive sleep apnea: Patient will be supplied with BiPAP tonight he typically has urine at home which she did not bring with him (10) Tobacco abuse: increased nicotine patch to 21 mg. Discussed smoking cessation. States he quit "cold turkey" in the past, but restarted after his son got into legal trouble due to stress. Admission and Anticipated Discharge Date Admission Date: January 22, 2020 Subjective Pt seen s/p HD. States he is feeling improved. Increased PO intake. Feels he is at his baseline SOB. He is anxious to d/c due to wanting to smoke. He has a patch on, but not sure if it is helping. He states he was given patches prior by Dr. Francis and has them at home. Pt denies fever, chest pain, abd pain, n/v/c/d, LE pain or swelling. Review of Systems Review of Systems: Pertinent positives and negatives reviewed in HPI--all others negative Physical Exam Constitutional: WD/WN, vitals as above Eyes: normal visual lua by confrontation and + anicteric sclerae Neck: normal visual inspection and trachea midline Respiratory: normal respiratory effort, lungs clear to auscultation Cardiovascular: Rate/Rhythm: regular rate and regular rhythm Gastrointestinal (Abdomen): Inspection/Auscultation: abdomen not distended Percussion/Palpation: abdomen soft; abdomen nontender Musculoskeletal: Head/Neck/Chest: normocephalic and head atraumatic Skin: no rashes, warm and dry Neurologic: awake; not confused Speech / Cognition: normal speech Psychiatric: A+Ox3, euthymic affect Results & Data Results & Data ([facility]) Vital Signs (Past 12 Hours) Vital Signs Temp Pulse Pulse Pulse Resp BP BP 01/26/20 15:59 36.8 C 58 L 20 138/57 L 01/26/20 13:20 56 L 113/63 01/26/20 13:00 55 L 122/68 01/26/20 12:40 56 L 123/68 01/26/20 12:20 26 L 120/58 L 01/26/20 12:00 50 L 106/52 L 01/26/20 11:40 55 L 113/57 L 01/26/20 11:20 57 L 121/52 L 01/26/20 11:00 50 L 106/52 L 01/26/20 10:40 59 L 124/60 01/26/20 10:20 61 124/63 01/26/20 10:00 37.0 C 61 01/26/20 07:39 36.7 C 61 18 105/53 L Pulse Ox 01/26/20 15:59 95 01/26/20 13:20 01/26/20 13:00 01/26/20 12:40 01/26/20 12:20 01/26/20 12:00 01/26/20 11:40 01/26/20 11:20 01/26/20 11:00 01/26/20 10:40 01/26/20 10:20 01/26/20 10:00 01/26/20 07:39 95 PG Care Time/CCT Total # of Minutes Spent Total Time Spent with Patient: Total time spent is greater than 50% in coordination of care (as documented) at patient's floor/unit and/or counseling patient: Coding Level of Care Code 40568 Subseq Hosp Care Lvl 3 Diagnoses Metabolic encephalopathy G93.41 Diarrhea R19.7 LLL pneumonia J18.9 CKD (chronic kidney disease), stage IV N18.4 Diabetes mellitus E11.9 Depression F32.9 Hypertension I10 Hypothyroidism E03.9 Obstructive sleep apnea G47.33 Tobacco abuse Z72.0
[2020-01-26] MEDS ORDERED: cephALEXin 500 MG CAP PO SCH (19:00)
[2020-01-26 20:26] LABS: Appearance Urine Cloudy (Clear); Bacteria Urine Automated Negative (Negative); Bilirubin Urine Negative (Negative); Blood Urine Negative (Negative); Color Urine Yellow; Epithelial Cell Urine Auto >30 /lpf (0-5); Glucose Urine UA 2+ (Negative); Ketones Urine Trace (Negative); Leukocyte Esterase Urine Negative (Negative); Nitrite Urine Negative (Negative); Protein Urine 4+ (Negative); Specific Gravity Urine 1.021 (1.000-1.030); Urobilinogen Urine Negative (Negative); pH Urine 5.5 (4.5-7.5)
[2020-01-26 20:38] LABS: Amorphous Sediment Urine Present (None Prsent); RBC Urine Automated 0-4 /hpf (0-4); Sperm Urine Present (None Prsent)
[2020-01-26] MEDS: cefTRIAXone SODIUM 2,000 MG in DEXTROSE 5% 50 ML IV SCH (20:46)
[2020-01-26] MEDS: ASPIRIN 81 MG ECTAB PO SCH (22:31)
[2020-01-26] MEDS: amLODIPine BESYLATE 5 MG TAB PO SCH (22:31)
[2020-01-26] MEDS: GABAPENTIN 300 MG CAP PO SCH (22:31)
[2020-01-27] MEDS: LEVOTHYROXINE SODIUM 125 MCG TABLET PO SCH (06:34)
[2020-01-27] MEDS: LOSARTAN POTASSIUM 50 MG TAB PO SCH (07:45)
[2020-01-27] MEDS: busPIRone 5 MG TAB PO SCH (07:45)
[2020-01-27] MEDS: CALCIUM ACETATE 667 MG CAP/TAB PO SCH (07:45)
[2020-01-27] MEDS: ESCITALOPRAM OXALATE 10 MG TAB PO SCH (07:45)
[2020-01-27] MEDS: carvediloL 3.125 MG TAB PO SCH (07:45)
[2020-01-27] MEDS: NICOTINE 21 MG/24 HR TDSY TD SCH (07:45)
[2020-01-27] MEDS: FUROSEMIDE 80 MG TAB PO SCH (07:45)
[2020-01-27] MEDS: CALCIUM CARBONATE 1250MG TAB PO SCH (07:46)
[2020-01-27] MEDS: INSULIN GLARGINE SOLOSTAR 100 UNITS/ML 3 ML PEN SC SCH (08:35)
[2020-01-27] MEDS: INSULIN ASPART 100 UNITS/ML 3 ML PEN SC SCH (08:36)
--- NOTE | 2020-01-27 09:59 | Discharge Summary ---
Date of Service January 27, 2020 Principal Diagnosis Pt feels he is doing well. He would like to go home today. Pt denies fever, SOB, chest pain, abd pain, n/v/c/d, LE pain or swelling. Tolerating PO without issue. Discharge Exam Constitutional WD/WN, vitals as above Eyes normal visual lua by confrontation and + anicteric sclerae Neck normal visual inspection and trachea midline Respiratory normal respiratory effort, lungs clear to auscultation Cardiovascular Rate/Rhythm: regular rate and regular rhythm Gastrointestinal (Abdomen) Inspection/Auscultation: abdomen not distended Percussion/Palpation: abdomen soft; abdomen nontender Musculoskeletal Head/Neck/Chest: normocephalic and head atraumatic Skin no rashes, warm and dry Neurologic awake; not confused Speech / Cognition: normal speech Psychiatric A+Ox3, euthymic affect Discharge Data Allergies Allergy/AdvReac Type Severity Reaction Status Date / Time lactose Allergy Intermediate Gastrointestinal Verified 01/23/20 17:21 Upset Consultations 01/22/20 17:30 ED Decision to Admit Stat 01/22/20 21:10 Consult Nephrology Routine 01/23/20 09:51 Consult Pulmonology Routine Ordered Studies 01/22/20 15:08 CT head/brain wo con Stat 01/22/20 15:10 CT abd pelvis wo con Stat 01/23/20 11:10 US point of care ultrasound Urgent 01/25/20 11:00 FL video swallow Routine Diabetes Follow up Diabetes Follow-up Needed for HgbA1c >9% Hospital Course (1) Metabolic encephalopathy: Patient is similar although baseline of some forgetfulness. Unsure as to the cause as patient is improving. Thoracocentesis rules out empyema. D/W pulmonary doubt infectious cause, may consider finish 7 days of antibiotics, likely a cephalosporin. will hold atypical coverage. He does appear to be clinically improving. likely has JANET,Obesity hypoventilatory syndrome. Tolerated transition to PO abx Concern for aspiration on admission ST eval with VSS noted for trace aspiration with thin liquids Advised for slippery foods, alternate solids and liquid bites (2) Diarrhea: improved. (3) LLL pneumonia: as stated above. will continue to treat. (4) CKD (chronic kidney disease), stage IV: Patient is on renal replacement therapy consultation Dr. Rachel service will be undertaken for continued treatment while in the hospital Ongoing HD as per renal (5) Diabetes mellitus: Patient has a unusual sliding scale regimen at home taking Tresiba 10 a day insulin NPH sliding scale. Convert to more standard basal bolus insulin while in the hospital Continue gabapentin for diabetic neuropathy (6) Depression: Patient continues on Lexapro and Buspar therapy (7) Hypertension: Patient is on amlodipine losartan 50 carvedilol 3.25 twice daily and Lasix 80 twice daily (8) Hypothyroidism: TSH is appropriate on presentation Synthroid continued at 125 (9) Obstructive sleep apnea: BIPAP as at home (10) Tobacco abuse: increased nicotine patch to 21 mg. Discussed smoking cessation. States he quit "cold turkey" in the past, but restarted after his son got into legal trouble due to stress. States he has patches at home, but has never used them Total Time Total Time Spent Total Time Spent (In Minutes): >30 Total Time Includes: Examination of the Patient, Discharge Planning, Medication Reconciliation, Communication With Other Providers and Other Discharge Plan Discharge Items Patient Disposition: Home - Self-Care Reason For Visit: ENCEPHALOPATHY Discharge Diagnosis: Encephalopathy, Pneumonia Activity: Resume your previous activity Non-emergency contact: Primary Care Provider and Radiator Cleaner Call non-emergency contact if: you have any medication questions, your symptoms worsen and your pain is not controlled Follow-up/Referrals: Anaid Morgan CRNP [Primary Care Provider] - 02/05/20 10:30 am Diet: Carb Consistent or DM2, Heart Healthy and Low Sodium (2gm) Addtl Attending Provider Instructions: Recommendations from speech therapy include: Advised for slippery foods, alternate solids and liquid bites, keep upright for 30minutes after eating, avoid thin liquids, avoid straws You should resume your usual dialysis schedule of Tuesday, , Tuesday You should be seen by your PCP in 3-5 days Pending Studies at Discharge: No Stand-Alone Forms: [facility] [employer], Smoking Cessation Medications and DC Order Prescriptions: New nicotine [Nicoderm CQ] 21 mg/24 hr Patch 24 Hour 21 mg transdermal QAM 30 Days RF: 0 cephalexin 500 mg Capsule 500 mg PO DAILY@1900 3 Days RF: 0 Continued (DME) Power Wheelchair Device See Rx Instructions .ROUTE .MEDSUPPLY Qty: 1 RF: 0 carvedilol 3.125 mg tablet 3.125 mg PO BID Qty: 60 RF: 5 amlodipine 10 mg tablet 10 mg PO QPM Qty: 90 RF: 3 gabapentin 100 mg capsule 300 mg PO HS RF: 0 escitalopram oxalate 5 mg tablet 5 mg PO DAILY RF: 0 losartan 50 mg tablet 50 mg PO DAILY RF: 0 (DME) FreeStyle Virgil 14 Day Sensor kit See Dose Instructions .ROUTE .MEDSUPPLY Qty: 6 RF: 3 (DME) pen needle, diabetic [BD Ultra-Fine Micro Pen Needle] 32 gauge x 1/4" needle See Dose Instructions .ROUTE .MEDSUPPLY Qty: 100 RF: 3 Tresiba FlexTouch U-100 100 unit/mL (3 mL) insulin pen 10 units SQ DAILY RF: 0 nicotine 14 mg/24 hr Patch 24 Hour 1 patch TRANSDERMAL DAILY RF: 0 calcium acetate(phosphat bind) 667 mg Tablet 2,001 mg PO TIDM RF: 0 calcium carbonate [Calcium 500] 500 mg calcium (1,250 mg) Tablet 500 mg PO DAILY RF: 0 furosemide [Lasix] 80 mg Tablet 80 mg PO BID RF: 0 omeprazole 20 mg Capsule,Delayed Release(Dr/Ec) 20 mg PO DAILYBB RF: 0 ergocalciferol (vitamin D2) [Vitamin D2] 1,250 mcg (50,000 unit) Capsule 1,250 mcg PO WK RF: 0 ProRenal QD 400-500 mcg-unit Capsule 1 cap PO QDD RF: 0 levothyroxine 125 mcg tablet 125 mcg PO DAILYBB RF: 0 buspirone 10 mg Tablet 10 mg PO BID RF: 0 ondansetron 8 mg Tablet,Disintegrating 8 mg PO BID PRN (Reason: Nausea) RF: 0 econazole 1 % Cream 1 applic TOPICAL BID RF: 0 nitroglycerin 0.4 mg Tablet, Sublingual See Rx Instructions .ROUTE .COMPLEX PRN (Reason: Chest Pain) RF: 0 aspirin 81 mg Tablet,Chewable 81 mg PO QPM RF: 0 Discharge Orders: Discharge Order (Routine); Ordered 01/27/20 Ordered By: Monserrat Pavon Admission Data Admit Date/Time: 01/22/20 19:15 Attending Provider: Monserrat Pavon Admit Provider: Rashid Espitia Primary Care Provider: Anaid Morgan Other Providers: Rashid Espitia ; Perez Rachel ; Carlos Morrissey Other Interventions: Discharge Summary Assessment (RN) Last Done: 01/27/20 10:30 Coding Level of Care Code D/C Day Management >30 mins Diagnoses Metabolic encephalopathy G93.41 Diarrhea R19.7 LLL pneumonia J18.9 CKD (chronic kidney disease), stage IV N18.4 Diabetes mellitus E11.9 Depression F32.9 Hypertension I10 Hypothyroidism E03.9 Obstructive sleep apnea G47.33 Tobacco abuse Z72.0
--- NOTE | 2020-01-27 11:33 | Nephrology Progress Note ---
Date of Service January 27, 2020 Assessment & Plan (1) ESRD (end stage renal disease) on dialysis: Sebastián has end-stage renal disease on hemodialysis TTS admitted to the hospital with acute confusion hypotension and generalized weakness. Was diagnosed with pleural effusion on left lower lobe pneumonia. Had dialysis yesterday, uneventful, currently is pretty close to his dry weight. -- Next dialysis Tuesday can be done at outpatient dialysis facility. Discussed in detail with the patient about the importance of fluid restriction to avoid high weight gain and ultrafiltration. -- dose medications for GFR less than 10 -- okay to be discharged from Nephrology standpoint, when medically stable will follow up (2) Weakness: (3) Acute confusion: (4) Pleural effusion, left: (5) Diabetes mellitus: (6) Anemia in chronic kidney disease: (7) Secondary hyperparathyroidism of renal origin: Admission and Anticipated Discharge Date Admission Date: January 22, 2020 Subjective Sebastián was seen and examined this morning. He has been doing well, blood pressure has been stable, denies any other symptom. Review of Systems Review of Systems: All systems reviewed & are unremarkable except as noted in HPI & below Physical Exam Constitutional: WD/WN, vitals as above + obese; no acute distress Respiratory: normal respiratory effort, lungs clear to auscultation Cardiovascular: RRR, no murmur, no edema Neurologic: moves all extremities and awake; not confused Psychiatric: A+Ox3, euthymic affect Results & Data ([facility]) Vital Signs (Past 12 Hours) Vital Signs Temp Pulse Pulse Pulse Pulse Resp BP 01/27/20 10:30 36.4 C L 58 L 61 63 16 162/68 H 01/27/20 06:40 36.4 C L 63 16 162/68 H 01/27/20 03:07 56 L 18 01/27/20 00:42 87 20 01/26/20 23:56 37.2 C 60 16 133/69 Pulse Ox 01/27/20 10:30 94 01/27/20 06:40 94 01/27/20 03:07 94 01/27/20 00:42 95 01/26/20 23:56 97 PG Care Time/CCT Total # of Minutes Spent Total Time Spent with Patient: Total time spent is greater than 50% in coordination of care (as documented) at patient's floor/unit and/or counseling patient: Coding Level of Care Code 93210 Subseq Hosp Care Lvl 3 Diagnoses ESRD (end stage renal disease) on dialysis N18.6; Z99.2 Weakness R53.1 Acute confusion R41.0 Pleural effusion, left J90 Diabetes mellitus E11.9 Anemia in chronic kidney disease N18.9; D63.1 Secondary hyperparathyroidism of renal origin N25.81
== END 2020-01-27 12:21 | disposition home or self-care (01) | DRG 193 ==
LOC: ED 14:20 → SUATTDRO 19:15 → 3E 19:15

== ENCOUNTER 2020-02-08 12:27 | Observation (INO) ==
--- NOTE | 2020-02-08 13:15 | XRay Report ---
XR chest 1V portable CLINICAL HISTORY: There is a breath COMPARISON STUDY: 01/23/2020 FINDINGS: The heart remains enlarged. There is diffuse elevation of interstitium consistent with warren estive failure/fluid overload. There is persistent left basilar consolidation with a left pleural eff usion. An electronic device again projects over the right hemithorax.[ IMPRESSION: 1. Continued radiographic evidence of congestive failure/fluid overload 2. Persistent left pleural effusion with associated left basilar consolidation ACT 112: Negative or not required by law. Electronically signed by: Donald Lafleur M.D. 02/08/2020 1:14 PM
--- NOTE | 2020-02-08 13:45 | XRay Report ---
XR pelvis 1-2V routine CLINICAL HISTORY: Fall. COMPARISON: CT of the abdomen and pelvis January 22, 2020. FINDINGS: Sacroiliac joints and symphysis previous are intact. There is no acute fracture within the pelvis or hips. No suspicious osseous lesion is noted. There is mild to moderate bilateral hip osteo arthritis. IMPRESSION: No acute fracture within the pelvis or hips. ACT 112: Negative or not required by law. Electronically signed by: Quentin Morales M.D. 02/08/2020 1:44 PM
[2020-02-08 14:01] LABS: HCO3 VBG 25 mmol/L; PCO2 VBG 45 mmHg (38-50); PO2 VBG 29 mmHg; pH VBG 7.36 (7.36-7.41)
[2020-02-08 14:02] LABS: iSTAT Creatinine 9.9 mg/dl (0.6-1.3); iSTAT Hemoglobin 10.2 g/dl (14.0-18.0); iSTAT Ionized Calcium 1.14 mmol/l (1.12-1.32); iSTAT Potassium 5.4 mmol/L (3.3-5.0)
[2020-02-08 14:03] LABS: Basophils # (auto) 0.05 K/uL (0-0.2); Basophils % (auto) 0.6 %; Eosinophils # (auto) 0.28 K/uL (0-0.5); Eosinophils % (auto) 3.2 %; Hematocrit (blood only) 30.9 % (42-52); Hemoglobin 10.1 g/dL (14.0-18.0); Immature Granulocytes # (auto) 0.04 K/uL (0.00-0.02); Immature Granulocytes % (auto) 0.5 %; Lymphocytes # (auto) 1.95 K/uL (1.2-3.4); Mean Corpuscular Hemoglobin 30.8 pg (25-34); Mean Corpuscular Hgb Conc 32.7 g/dL (32-36); Mean Corpuscular Volume 94.2 fL (80-100); Mean Platelet Volume 10.2 fL (7.4-10.4); Monocytes # (auto) 0.29 K/uL (0.11-0.59); Monocytes % (auto) 3.3 %; Neutrophils # (auto) 6.26 K/uL (1.4-6.5); Neutrophils % (auto) 70.4 %; Platelet Count 246 K/uL (130-400); RDW Coefficient of Variation 13.4 % (11.5-14.5); RDW Standard Deviation 45.9 fL (36.4-46.3); Red Blood Count 3.28 M/uL (4.7-6.1); White Blood Count 8.87 K/uL (4.8-10.8)
[2020-02-08 14:04] LABS: Oxygen Saturation VBG < 60.0 %
[2020-02-08 14:30] LABS: BUN Creatinine Ratio 10.1 (10-20); Calcium 8.9 mg/dl (8.5-10.1); Creatinine Clr Calc Pharmacy 10.2 ml/min; Est GFR (African American) 6.1; Est GFR (Non-African American) 5.3; Potassium 5.3 mmol/L (3.5-5.1)
--- NOTE | 2020-02-08 14:39 | CT Scan Report ---
CT OF THE CERVICAL SPINE WITHOUT CONTRAST CLINICAL HISTORY: Fall. COMPARISON STUDY: No previous studies for comparison. TECHNIQUE: Helical axial images of the cervical spine were obtained without IV contrast. Sagittal a nd coronal reconstructions were viewed. Automated exposure control was utilized for the study. A do se lowering technique was utilized adhering to the principles of ALARA. FINDINGS: Alignment of the cervical spine is anatomic. Mild rightward tilt of the head is noted. This may be positional. Moderate multilevel degenerative changes within the cervical spine are noted with extensive anterior osteophytosis within the mid to lower cervical spine. Vertebral body heights are maintained. No acute cervical spine fracture or subluxation is present. There is no prevertebral arthur a. Facet joints are intact. A left pleural effusion is partially imaged. IMPRESSION: 1. No acute cervical spine fracture or subluxation. 2. Left pleural effusion, partially imaged. ACT 112: Negative or not required by law. Electronically signed by: Quentin Morales M.D. 02/08/2020 2:38 PM
--- NOTE | 2020-02-08 14:46 | CT Scan Report ---
HEAD CT NONCONTRAST CT DOSE: 2766.71 mGy.cm HISTORY: fall TECHNIQUE: Multiaxial CT images of the head were performed without the use of intravenous contrast. A utomated exposure control was utilized for this study. A dose lowering technique was utilized adheri ng to the principles of ALARA. Comparison: Head CT 01/22/2020. Findings: Small retention cyst within the left maxillary sinus. The mastoid air cells appear clear. T he calvarium and skull base are intact. There is no mass, hematoma, midline shift, acute infarct. Whi te matter hypodensity is nonspecific but suggestive of microvascular ischemic change. The ventricles and sulci demonstrate mild age-related involutional changes. Impression: No significant change compared to the prior study. No acute intracranial abnormality. ACT 112: Negative or not required by law. Electronically signed by: Leopoldo Lucero M.D. 02/08/2020 2:45 PM
--- NOTE | 2020-02-08 14:50 | CT Scan Report ---
CT OF THE ABDOMEN AND PELVIS WITHOUT CONTRAST CLINICAL HISTORY: Fall. COMPARISON STUDY: CT of the abdomen and pelvis January 22, 2020. TECHNIQUE: Axial images of the abdomen and pelvis were obtained without IV contrast. Images were revi ewed in the axial, sagittal, and coronal planes. Automated exposure control was utilized for the daniel dy. A dose lowering technique was utilized adhering to the principles of ALARA. FINDINGS: A left pleural effusion is partially imaged on this examination. Left lower lobe subpleural opacity with slight loss is also partially imaged. This favors round atelectasis. No pneumatosis, fr ee air or portal venous gas is present. No hemoperitoneum is present. Evaluation of the abdomen and p nicholas is suboptimal on this unenhanced examination. There are small gallstones within the gallbladder without evidence for acute cholecystitis. There is no evidence for traumatic injury to the liver, sp carmelo, adrenal glands, kidneys or pancreas. Water attenuation bilateral renal lesions are suboptimally assessed on this exam but favor cysts. There are calcifications within each renal sinus which favor vascular calcifications. There is no hydronephrosis. No ureteral calculi are present. There is no natan dence for a bowel obstruction. No bowel wall thickening is evident on this unenhanced examination. Th is colonic diverticulosis without evidence for acute diverticulitis. No acute lumbar spine or pelvic fracture is noted. There is no lymphadenopathy. IMPRESSION: 1. No acute traumatic findings within the abdomen or pelvis on unenhanced examination. 2. No bowel obstruction. Colonic diverticulosis without evidence for acute diverticulitis. 3. Partially imaged small to moderate left pleural fusion with left lower lobe airspace opacity which favors round atelectasis. 4. Cholelithiasis. ACT 112: Negative or not required by law. Electronically signed by: Quentin Morales M.D. 02/08/2020 2:49 PM
--- NOTE | 2020-02-08 17:36 | Emergency Department Note ---
History of Present Illness General Chief complaint: Shortness of Breath/Dyspnea Time Seen by Provider: 02/08/20 12:57 History of Present Illness Provider complaint: Dyspnea weakness and confusion Onset (ago): week(s) 1 Associated symptoms: + shortness of breath and + weakness; no chest pain, no cough, no fever/chills, no headaches, no nausea/vomiting and no seizure 64-year-old Tuesday end-stage renal disease on hemodialysis patient presents emergency department for shortness of breath weakness and confusion. Patient states he has been feeling increasingly short of breath and weak. Patient states he has felt so weak that he is fallen multiple times. He states he fell and broke his electronic scooter and now cannot get around as much. He states that his home health care nurse told him to come to the emergency department today because she thought that his breath sounds were decreased on the left and that he was more confused. Patient states he does not feel complete views. He denies any chest pain. Patient states he has not gone to his last 2 dialysis appointments, his last one was 6 days ago last Tuesday. He missed his Tuesday and dialysis appointment this week. When asked why he did not go to dialysis the patient stated "I did not feel like it". Home Medications Home Medications Medication Instructions Recorded Confirmed Type aspirin 81 mg PO HS 12/22/17 02/08/20 History nitroglycerin See Rx Instructions .ROUTE 12/22/17 02/08/20 History .COMPLEX PRN buspirone 10 mg PO BID 01/27/18 02/08/20 History FreeStyle Virgil 14 Day Sensor #6 ea NS 02/05/19 02/08/20 Rx losartan 50 mg tablet 50 mg PO DAILY 02/05/19 02/08/20 History pen needle, diabetic 32 gauge x #100 ea 02/05/19 02/08/20 Rx 1/4" insulin degludec 100 unit/mL (3 10 units SQ DAILY ml 05/28/19 02/08/20 History mL) subcutaneous pen Wheelchair (Manual or Powered) #1 ea 09/11/19 02/08/20 Rx gabapentin 100 mg capsule 300 mg PO HS cap 09/21/19 02/08/20 History carvedilol 3.125 mg tablet 3.125 mg PO BID #60 tab 12/04/19 02/08/20 Rx escitalopram oxalate 5 mg tablet 5 mg PO QAM 01/09/20 02/08/20 History ProRenal QD 1 cap PO QDD 01/22/20 02/08/20 History calcium acetate(phosphat bind) 2,001 mg PO TIDM 01/22/20 02/08/20 History calcium carbonate [Calcium 500] 500 mg PO TUTHSA 01/22/20 02/08/20 History ergocalciferol (vitamin D2) 1,250 mcg PO WK 01/22/20 02/08/20 History [Vitamin D2] furosemide [Lasix] 80 mg PO BID 01/22/20 02/08/20 History levothyroxine 125 mcg PO DAILYBB 01/22/20 02/08/20 History nicotine [Nicoderm CQ] 21 mg TRANSDERMAL QAM 30 Days ea 01/27/20 02/08/20 Rx amlodipine 10 mg PO HS 02/08/20 02/08/20 History insulin NPH isoph U-100 human 0 unit SUBCUT .SLIDING SCALE 02/08/20 02/08/20 History [Novolin N Flexpen] Allergies Allergy/AdvReac Type Severity Reaction Status Date / Time lactose Allergy Intermediate Gastrointestinal Verified 02/08/20 15:02 Upset Past Med/Surg History Medical History Anemia in chronic kidney disease Anxiety GERD (gastroesophageal reflux disease) Hyperlipidemia On home oxygen therapy 2L n/c with cpap at HS Osteoarthritis Peripheral neuropathy bilt legs/feet Pleural effusion, left Secondary hyperparathyroidism of renal origin Surgical History History of bilateral cataract extraction History of cardiac cath 01/2018 "about 2-3 weeks"; no stents placed @ [facility] by Dr. Coronel History of carpal tunnel release R wrist History of colonoscopy History of repair of anterior cruciate ligament of left knee History of repair of anterior cruciate ligament of right knee History of tonsillectomy History of tooth extraction wisdom teeth Family History Mother Family history of diabetes mellitus Grandmother Family history of diabetes mellitus maternal Other Colorectal cancer Inflammatory bowel disease Melanoma Social History Smoking Status: Current every day smoker Tobacco Type: Cigarettes Cigarettes Per Day: 15 a day; Second Hand Exposure: No; Hx Alcohol Use: Yes Alcohol type: beer Hx Substance Use: No Preferred Language: Urdu Communication Ability: Effective 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 Beliefs That Will Affect Care: None marital status: Single Current Living Situation: Family Current Living Situation Comment: lives with sonAshish Feels Safe at Home: Yes Assistive Devices: CPAP and Wheelchair Review of Systems A total of 10 systems reviewed and were otherwise negative Physical Exam Vital Signs Vital Signs - 24 hr 02/08/20 12:11 02/08/20 12:33 02/08/20 12:46 Temperature 36.7 C Temperature Source Oral Pulse Rate 84 79 74 Pulse Rate from SpO2 Sensor 76 74 Respiratory Rate 20 24 24 Respiratory Effort / Characteristics Non-Labored Spontaneous Respiratory Depth Normal Respiratory Pattern Regular Blood Pressure 169/77 H 169/77 H Blood Pressure Mean 107 115 Pulse Oximetry 97 98 97 Oxygen Delivery Method Nasal Cannula Oxygen Flow Rate 2 Sepsis Recent Fever Within 48 Hours No Sepsis New/Unexplained Change in Mental Status No Sepsis Action Taken by Nursing No Action Required 02/08/20 13:00 02/08/20 13:30 02/08/20 14:00 Temperature Temperature Source Pulse Rate 78 79 Pulse Rate from SpO2 Sensor 77 69 Respiratory Rate 22 20 16 Respiratory Effort / Characteristics Respiratory Depth Respiratory Pattern Blood Pressure Blood Pressure Mean Pulse Oximetry 100 100 Oxygen Delivery Method Nasal Cannula Oxygen Flow Rate 2 Sepsis Recent Fever Within 48 Hours Sepsis New/Unexplained Change in Mental Status Sepsis Action Taken by Nursing 02/08/20 14:30 02/08/20 15:00 Temperature Temperature Source Pulse Rate 80 77 Pulse Rate from SpO2 Sensor Respiratory Rate 24 22 Respiratory Effort / Characteristics Respiratory Depth Respiratory Pattern Blood Pressure 144/75 H Blood Pressure Mean 98 Pulse Oximetry Oxygen Delivery Method Oxygen Flow Rate Sepsis Recent Fever Within 48 Hours Sepsis New/Unexplained Change in Mental Status Sepsis Action Taken by Nursing Physical Exam GENERAL: He is oriented to person, place, and time. He appears well-developed and well-nourished. He does not appear distressed. HENT: Exam performed. - Head: Normocephalic and atraumatic. - Right Ear: External ear normal. No mastoid tenderness. - Left Ear: External ear normal. No mastoid tenderness. - Mouth/Throat: The oropharynx is clear and moist. No trismus in the jaw. No dental abscesses or uvula swelling. No oropharyngeal exudate or tonsillar abscesses. EYES: Conjunctivae and EOM are normal. Pupils are equal, round, and reactive to light. Right eye exhibits no discharge. Left eye exhibits no discharge. No scleral icterus. NECK: Normal range of motion. Neck supple. No JVD present. No spinous process tenderness present. No carotid bruit present. No rigidity. No tracheal deviation and normal range of motion present. No Brudzinski's sign and no Kernig's sign noted. CV: Normal rate, regular rhythm, normal heart sounds and intact distal pulses. There is no peripheral edema. Palpable radial pulses bue. PULM/CHEST: Rales bilaterally. - Chest Wall: He exhibits no tenderness. ABD: The abdomen is soft obese. Bowel sounds are normal. He has no distension. No mass is present. There is no tenderness. There is no rebound, no guarding, no Reeves's sign and no tenderness at McBurney's point. Rovsig negative. MUSC/SKEL: Normal range of motion. There is no peripheral edema, tenderness or deformity. LYMPH: No cervical adenopathy. NEURO: He is alert and oriented to person, place, and time. He has normal strength. No cranial nerve deficit or sensory deficit. Coordination and gait normal. GCS eye subscore is 4. GCS verbal subscore is 5. GCS motor subscore is 6. Cerebellar tests wnl. SKIN: Skin is warm and dry. He is not diaphoretic. PSYCH: He has a normal mood and affect. Behavior is normal. Judgment and thought content normal. Course Course 1257: The patient was evaluated in room B11. A complete history and physical exam was performed. Cardiac monitoring: An order was placed for continuous cardiac monitoring. The monitor shows a rate of 70 with sinus rhythm 1536: Vital signs stable. Labs show creatinine of 9.4, BUN of 95. These results are expected as the patient has not gone to any hemodialysis sessions in the last week. Potassium 5.3. EKG shows no peaked T waves or widened QRS. Patient states he still feel weak. Imaging shows no acute traumatic injury. Discussed the case with Dr. [facility] hospitalist who agrees to admit the patient. Both he and I agree since her no EKG changes, no need to treat the hyperkalemia 5.3 at this time. He will help arrange for inpatient dialysis, no need for emergent dialysis at this time as the patient is stable on his home oxygen his potassium is not severely elevated and his BUN is less than 100. Medical Decision Making Laboratory Data Result diagrams: 02/08/20 13:40 02/08/20 13:40 Lab Results 02/08/20 02/08/20 02/08/20 Range/Units 13:40 13:40 13:40 WBC 8.87 (4.8-10.8) K/uL RBC 3.28 L (4.7-6.1) M/uL Hgb 10.1 L (14.0-18.0) g/dL POC Hgb (14.0-18.0) g/dl Hct 30.9 L (42-52) % POC Hct (42-52) % MCV 94.2 (80-100) fL MCH 30.8 (25-34) pg MCHC 32.7 (32-36) g/dL RDW Std Deviation 45.9 (36.4-46.3) fL RDW Coeff of Jorge A 13.4 (11.5-14.5) % Plt Count 246 (130-400) K/uL MPV 10.2 (7.4-10.4) fL Immature Gran % (Auto) 0.5 % Neut % (Auto) 70.4 % Lymph % (Auto) 22.0 % Long % (Auto) 3.3 % Eos % (Auto) 3.2 % Baso % (Auto) 0.6 % Neut # (Auto) 6.26 (1.4-6.5) K/uL Lymph # (Auto) 1.95 (1.2-3.4) K/uL Long # (Auto) 0.29 (0.11-0.59) K/uL Eos # (Auto) 0.28 (0-0.5) K/uL Baso # (Auto) 0.05 (0-0.2) K/uL Immature Gran # (Auto) 0.04 H (0.00-0.02) K/uL VBG pH (7.36-7.41) VBG pCO2 (38-50) mmHg VBG pO2 mmHg VBG HCO3 mmol/L VBG O2 Saturation % VBG Base Excess mEq/L Barometric Pressure mm/Hg POC Sodium (135-144) mmol/L Sodium 137 (136-145) mmol/L POC Potassium (3.3-5.0) mmol/L Potassium 5.3 H (3.5-5.1) mmol/L POC Chloride (101-112) mmol/L Chloride 102 (98-107) mmol/L Carbon Dioxide 25 (21-32) mmol/L POC Total CO2 (24-31) mmol/L Anion Gap 10.0 (3-11) POC Anion Gap (16-25) mmol/L POC BUN (7-18) mg/dl BUN 95 H (7-18) mg/dl Creatinine 9.40 H* (0.6-1.4) mg/dl POC Creatinine (0.6-1.3) mg/dl Est Cr Clr Drug Dosing 10.2 ml/min Est GFR ( Amer) 6.1 Est GFR (Non-Af Amer) 5.3 BUN/Creatinine Ratio 10.1 (10-20) Glucose 171 H (70-99) mg/dl POC Glucose (other) (70-99) mg/dl Calcium 8.9 (8.5-10.1) mg/dl POC Ioniz Calcium Alessandro (1.12-1.32) mmol/l Ammonia < 10.0 L (11-32) umol/L 02/08/20 02/08/20 Range/Units 13:44 13:47 WBC (4.8-10.8) K/uL RBC (4.7-6.1) M/uL Hgb (14.0-18.0) g/dL POC Hgb 10.2 L (14.0-18.0) g/dl Hct (42-52) % POC Hct 30 L (42-52) % MCV (80-100) fL MCH (25-34) pg MCHC (32-36) g/dL RDW Std Deviation (36.4-46.3) fL RDW Coeff of Jorge A (11.5-14.5) % Plt Count (130-400) K/uL MPV (7.4-10.4) fL Immature Gran % (Auto) % Neut % (Auto) % Lymph % (Auto) % Long % (Auto) % Eos % (Auto) % Baso % (Auto) % Neut # (Auto) (1.4-6.5) K/uL Lymph # (Auto) (1.2-3.4) K/uL Long # (Auto) (0.11-0.59) K/uL Eos # (Auto) (0-0.5) K/uL Baso # (Auto) (0-0.2) K/uL Immature Gran # (Auto) (0.00-0.02) K/uL VBG pH 7.36 (7.36-7.41) VBG pCO2 45 (38-50) mmHg VBG pO2 29 mmHg VBG HCO3 25 mmol/L VBG O2 Saturation < 60.0 % VBG Base Excess -1.0 mEq/L Barometric Pressure 740.7 mm/Hg POC Sodium 136 (135-144) mmol/L Sodium (136-145) mmol/L POC Potassium 5.4 H (3.3-5.0) mmol/L Potassium (3.5-5.1) mmol/L POC Chloride 100 L (101-112) mmol/L Chloride (98-107) mmol/L Carbon Dioxide (21-32) mmol/L POC Total CO2 24 (24-31) mmol/L Anion Gap (3-11) POC Anion Gap 19.0 (16-25) mmol/L POC BUN 102 H* (7-18) mg/dl BUN (7-18) mg/dl Creatinine (0.6-1.4) mg/dl POC Creatinine 9.9 H* (0.6-1.3) mg/dl Est Cr Clr Drug Dosing ml/min Est GFR ( Amer) Est GFR (Non-Af Amer) BUN/Creatinine Ratio (10-20) Glucose (70-99) mg/dl POC Glucose (other) 163 H (70-99) mg/dl Calcium (8.5-10.1) mg/dl POC Ioniz Calcium Alessandro 1.14 (1.12-1.32) mmol/l Ammonia (11-32) umol/L Imaging Data Radiologist's Impression: XR pelvis 1-2V routine CLINICAL HISTORY: Fall. COMPARISON: CT of the abdomen and pelvis January 22, 2020. FINDINGS: Sacroiliac joints and symphysis previous are intact. There is no acute fracture within the pelvis or hips. No suspicious osseous lesion is noted. There is mild to moderate bilateral hip osteoarthritis. IMPRESSION: No acute fracture within the pelvis or hips. ACT 112: Negative or not required by law. Electronically signed by: Quentin Morales M.D. 02/08/2020 1:44 PM Dictated: 02/08/20 1343Transcribed: 02/08/[address] DOSE: 2766.71 mGy.cm HISTORY: fall TECHNIQUE: Multiaxial CT images of the head were performed without the use of intravenous contrast. Automated exposure control was utilized for this study. A dose lowering technique was utilized adhering to the principles of ALARA. Comparison: Head CT 01/22/2020. Findings: Small retention cyst within the left maxillary sinus. The mastoid air cells appear clear. The calvarium and skull base are intact. There is no mass, hematoma, midline shift, acute infarct. White matter hypodensity is nonspecific but suggestive of microvascular ischemic change. The ventricles and sulci demonstrate mild age-related involutional changes. Impression: No significant change compared to the prior study. No acute intracranial abnormality. ACT 112: Negative or not required by law. Electronically signed by: Leopoldo Lucero M.D. 02/08/2020 2:45 PM Dictated: 02/08/20 1438Transcribed: 02/08/[address] OF THE CERVICAL SPINE WITHOUT CONTRAST CLINICAL HISTORY: Fall. COMPARISON STUDY: No previous studies for comparison. TECHNIQUE: Helical axial images of the cervical spine were obtained without IV contrast. Sagittal and coronal reconstructions were viewed. Automated exposure control was utilized for the study. A dose lowering technique was utilized adhering to the principles of ALARA. FINDINGS: Alignment of the cervical spine is anatomic. Mild rightward tilt of the head is noted. This may be positional. Moderate multilevel degenerative changes within the cervical spine are noted with extensive anterior osteophytosis within the mid to lower cervical spine. Vertebral body heights are maintained. No acute cervical spine fracture or subluxation is present. There is no prevertebral edema. Facet joints are intact. A left pleural effusion is partially imaged. IMPRESSION: 1. No acute cervical spine fracture or subluxation. 2. Left pleural effusion, partially imaged. ACT 112: Negative or not required by law. Electronically signed by: Quentin Morales M.D. 02/08/2020 2:38 PM Dictated: 02/08/20 1432Transcribed: 02/08/[address] OF THE ABDOMEN AND PELVIS WITHOUT CONTRAST CLINICAL HISTORY: Fall. COMPARISON STUDY: CT of the abdomen and pelvis January 22, 2020. TECHNIQUE: Axial images of the abdomen and pelvis were obtained without IV contrast. Images were reviewed in the axial, sagittal, and coronal planes. Automated exposure control was utilized for the study. A dose lowering technique was utilized adhering to the principles of ALARA. FINDINGS: A left pleural effusion is partially imaged on this examination. Left lower lobe subpleural opacity with slight loss is also partially imaged. This favors round atelectasis. No pneumatosis, free air or portal venous gas is present. No hemoperitoneum is present. Evaluation of the abdomen and pelvis is suboptimal on this unenhanced examination. There are small gallstones within the gallbladder without evidence for acute cholecystitis. There is no evidence for traumatic injury to the liver, spleen, adrenal glands, kidneys or pancreas. Water attenuation bilateral renal lesions are suboptimally assessed on this exam but favor cysts. There are calcifications within each renal sinus which favor vascular calcifications. There is no hydronephrosis. No ureteral calculi are present. There is no evidence for a bowel obstruction. No bowel wall thickening is evident on this unenhanced examination. This colonic diverticulosis without evidence for acute diverticulitis. No acute lumbar spine or pelvic fracture is noted. There is no lymphadenopathy. IMPRESSION: 1. No acute traumatic findings within the abdomen or pelvis on unenhanced examination. 2. No bowel obstruction. Colonic diverticulosis without evidence for acute diverticulitis. 3. Partially imaged small to moderate left pleural fusion with left lower lobe airspace opacity which favors round atelectasis. 4. Cholelithiasis. ACT 112: Negative or not required by law. Electronically signed by: Quentin Morales M.D. 02/08/2020 2:49 PM Dictated: 02/08/20 1440Transcribed: 02/08/20 1444 XR chest 1V portable CLINICAL HISTORY: There is a breath COMPARISON STUDY: 01/23/2020 FINDINGS: The heart remains enlarged. There is diffuse elevation of interstitium consistent with congestive failure/fluid overload. There is persistent left basilar consolidation with a left pleural effusion. An electronic device again projects over the right hemithorax.[ IMPRESSION: 1. Continued radiographic evidence of congestive failure/fluid overload 2. Persistent left pleural effusion with associated left basilar consolidation ACT 112: Negative or not required by law. Electronically signed by: Donald Lafleur M.D. 02/08/2020 1:14 PM Dictated: 02/08/20 1307Transcribed: 02/08/20 1307 ECG Data Indication: + weakness Rate (beats per minute): 73 Rhythm: + normal sinus ECG Intervals/blocks: + First degree AV block, + Normal QRS and + Normal QT-c ECG ST segments: + Normal ST segments ECG Findings: no Peaked T waves MDM Narrative 1257: The patient was evaluated in room B11. A complete history and physical exam was performed. Cardiac monitoring: An order was placed for continuous cardiac monitoring. The monitor shows a rate of 70 with sinus rhythm 1536: Vital signs stable. Labs show creatinine of 9.4, BUN of 95. These results are expected as the patient has not gone to any hemodialysis sessions in the last week. Potassium 5.3. EKG shows no peaked T waves or widened QRS. Patient states he still feel weak. Imaging shows no acute traumatic injury. Discussed the case with Dr. Ugal[facility] hospitalist who agrees to admit the patient. Both he and I agree since her no EKG changes, no need to treat the hyperkalemia 5.3 at this time. He will help arrange for inpatient dialysis, no need for emergent dialysis at this time as the patient is stable on his home oxygen his potassium is not severely elevated and his BUN is less than 100. Impression & Plan Fluid overload, CKD (chronic kidney disease), stage IV Discharge Plan Visit Data Chief Complaint: Shortness of Breath/Dyspnea ED Provider: Jonathon Marquis Discharge Problem: Fluid overload, CKD (chronic kidney disease), stage IV Patient Disposition: Being Evaluated by Hospitalist Forms Stand Alone Forms: My [facility] Prescriptions Prescriptions: No Action (DME) Power Wheelchair Device See Rx Instructions .ROUTE .MEDSUPPLY Qty: 1 RF: 0 carvedilol 3.125 mg tablet 3.125 mg PO BID Qty: 60 RF: 5 gabapentin 100 mg capsule 300 mg PO HS RF: 0 escitalopram oxalate 5 mg tablet 5 mg PO QAM RF: 0 losartan 50 mg tablet 50 mg PO DAILY RF: 0 (DME) FreeStyle Vigril 14 Day Sensor kit See Dose Instructions .ROUTE .MEDSUPPLY Qty: 6 RF: 3 (DME) pen needle, diabetic [BD Ultra-Fine Micro Pen Needle] 32 gauge x 1/4" needle See Dose Instructions .ROUTE .MEDSUPPLY Qty: 100 RF: 3 Tresiba FlexTouch U-100 100 unit/mL (3 mL) insulin pen 10 units SQ DAILY RF: 0 calcium acetate(phosphat bind) 667 mg Tablet 2,001 mg PO TIDM RF: 0 calcium carbonate [Calcium 500] 500 mg calcium (1,250 mg) Tablet 500 mg PO TUTHSA RF: 0 furosemide [Lasix] 80 mg Tablet 80 mg PO BID RF: 0 ergocalciferol (vitamin D2) [Vitamin D2] 1,250 mcg (50,000 unit) Capsule 1,250 mcg PO WK RF: 0 ProRenal QD 400-500 mcg-unit Capsule 1 cap PO QDD RF: 0 levothyroxine 125 mcg tablet 125 mcg PO DAILYBB RF: 0 nicotine [Nicoderm CQ] 21 mg/24 hr Patch 24 Hour 21 mg transdermal QAM 30 Days RF: 0 buspirone 10 mg Tablet 10 mg PO BID RF: 0 nitroglycerin 0.4 mg Tablet, Sublingual See Rx Instructions .ROUTE .COMPLEX PRN (Reason: Chest Pain) RF: 0 aspirin 81 mg Tablet,Chewable 81 mg PO HS RF: 0 amlodipine 10 mg tablet 10 mg PO HS RF: 0 Novolin N Flexpen 100 unit/mL (3 mL) Insulin Pen 0 unit subcut .SLIDING SCALE RF: 0 Referrals Referrals: Anaid Morgan CRNP [Primary Care Provider] - Discharge Problem: Fluid overload Qualifiers: Hypervolemia type: unspecified Qualified Code(s): E87.70 - Fluid overload, unspecified
[2020-02-08] MEDS ORDERED: ONDANSETRON INJ 2 MG/ML 2 ML VIAL IV PRN (18:01)
[2020-02-08] MEDS ORDERED: ACETAMINOPHEN 325 MG TAB PO PRN (18:01)
[2020-02-08] MEDS ORDERED: GLUCAGON FOR INJ 1 MG VIAL IM PRN (18:15)
[2020-02-08] MEDS ORDERED: GLUCOSE 10 TABS/TUBE PO PRN (18:15)
[2020-02-08] MEDS ORDERED: CARBOHYDRATES FOR HYPOGLYCEMIA PO PRN (18:15)
[2020-02-08] MEDS ORDERED: GLUCOSE 40% GEL 15 GM TUBE PO PRN (18:15)
[2020-02-08] MEDS ORDERED: DEXTROSE 50% 50 ML SYRINGE IV PRN (18:15)
--- NOTE | 2020-02-08 18:21 | Electrocardiogram Report ---
Test Reason : Blood Pressure : / mmHG Vent. Rate : 073 BPM Atrial Rate : 073 BPM P-R Int : 240 ms QRS Dur : 092 ms QT Int : 436 ms P-R-T Axes : 067 -05 043 degrees QTc Int : 480 ms Sinus rhythm with 1st degree A-V block with occasional Premature ventricular complexes Low voltage QRS Cannot rule out Anterior infarct (cited on or before 08-FEB-2020) Abnormal ECG When compared with ECG of 24-JAN-2020 09:04, Premature ventricular complexes are now Present Left anterior fascicular block is no longer Present Confirmed by Sahil Jimenez ([id number]) on 02/08/2020 6:21:20 PM Referred By: REFERRED SELF Confirmed By:Reynold Jimenez
[2020-02-08] MEDS: CALCIUM ACETATE 667 MG CAP/TAB PO SCH (19:33)
[2020-02-08] MEDS: FUROSEMIDE 80 MG TAB PO SCH (19:44)
--- NOTE | 2020-02-08 20:39 | History & Physical Report ---
Date of Service February 08, 2020 Assessment & Plan (1) Recurrent falls: Multiple falls at home. Likely multifactorial from sensory neuropathy from his poorly controlled diabetes and volume overload from multiple missed dialysis. - PT/OT - Likely placement -> CM consult (2) ESRD (end stage renal disease) on dialysis: Poor compliance and frequently misses. Presently mildly volume overloaded, but no acute dialysis needs. - Consult nephrology - Continue home meds (3) Depression: Endorses some passive wish and says "Maybe it's time I join the guys I left behind." No active SI. I did discuss that he is under no obligation to continue medical care such as HD, but he defers and says "Lots of people push you to." - Consider psychiatry and/or palliative consult. - Continue buspirone & escitalopram (4) Hypertension: BP is 190/85. - Continue home amlodipine, carvedilol, Lasix, losartan - Hydralazine PRN - Hopefully volume control will also improve BP. (5) Diabetes mellitus: A1cs indicate poor control; recently 13% & 14%. - Continue long-acting insulin - Sliding scale insulin (6) Hypothyroidism: TSH was 1.5 in 01/2020. No signs/symptoms of hypo-/hyperthyroidism. - Continue home Synthroid 125 mcg (7) Obstructive sleep apnea: - CPAP ordered (8) DVT prophylaxis: Heparin 5,000 units SQ Q12h Admission and Anticipated Discharge Date Admission Date: February 08, 2020 History of Present Illness Primary Care Provider: VY Arriaga 64yo M coming in with falls and missing dialysis. The patient reports he has been too tired to make it too dialysis recently. He normally goes on Tuesday//Tuesday, but didn't go either Tuesday or . He is overall weak and just doesn't feel well enough to go. No fevers at home. He notes that in the last day he has fallen twice. Allergies Allergy/AdvReac Type Severity Reaction Status Date / Time lactose Allergy Intermediate Gastrointestinal Verified 02/08/20 15:02 Upset Home Medications Home Medications Medication Instructions Recorded Confirmed Type aspirin 81 mg PO HS 12/22/17 02/08/20 History nitroglycerin See Rx Instructions .ROUTE 12/22/17 02/08/20 History .COMPLEX PRN buspirone 10 mg PO BID 10/26/18 11/06/20 History FreeStyle Virgil 14 Day Sensor #6 ea NS 02/05/19 02/08/20 Rx losartan 50 mg tablet 50 mg PO DAILY 02/05/19 02/08/20 History pen needle, diabetic 32 gauge x #100 ea 02/05/19 02/08/20 Rx 1/4" insulin degludec 100 unit/mL (3 10 units SQ DAILY ml 05/28/19 02/08/20 History mL) subcutaneous pen Wheelchair (Manual or Powered) #1 ea 09/11/19 02/08/20 Rx gabapentin 100 mg capsule 300 mg PO HS cap 09/21/19 02/08/20 History carvedilol 3.125 mg tablet 3.125 mg PO BID #60 tab 12/04/19 02/08/20 Rx escitalopram oxalate 5 mg tablet 5 mg PO QAM 01/09/20 02/08/20 History ProRenal QD 1 cap PO QDD 01/22/20 02/08/20 History calcium acetate(phosphat bind) 2,001 mg PO TIDM 01/22/20 02/08/20 History calcium carbonate [Calcium 500] 500 mg PO TUTHSA 01/22/20 02/08/20 History ergocalciferol (vitamin D2) 1,250 mcg PO WK 01/22/20 02/08/20 History [Vitamin D2] furosemide [Lasix] 80 mg PO BID 01/22/20 02/08/20 History levothyroxine 125 mcg PO DAILYBB 01/22/20 02/08/20 History nicotine [Nicoderm CQ] 21 mg TRANSDERMAL QAM 30 Days ea 01/27/20 02/08/20 Rx amlodipine 10 mg PO HS 02/08/20 02/08/20 History insulin NPH isoph U-100 human 0 unit SUBCUT .SLIDING SCALE 02/08/20 02/08/20 History [Novolin N Flexpen] Past Med/Surg History Medical History Anemia in chronic kidney disease Anxiety GERD (gastroesophageal reflux disease) Hyperlipidemia On home oxygen therapy 2L n/c with cpap at HS Osteoarthritis Peripheral neuropathy bilt legs/feet Pleural effusion, left Secondary hyperparathyroidism of renal origin Surgical History History of bilateral cataract extraction History of cardiac cath 01/2018 "about 2-3 weeks"; no stents placed @ [facility] by Dr. Coronel History of carpal tunnel release R wrist History of colonoscopy History of repair of anterior cruciate ligament of left knee History of repair of anterior cruciate ligament of right knee History of tonsillectomy History of tooth extraction wisdom teeth Family History Mother Family history of diabetes mellitus Grandmother Family history of diabetes mellitus maternal Other Colorectal cancer Inflammatory bowel disease Melanoma Social History Smoking Status: Current every day smoker Tobacco Type: Cigarettes Cigarettes Per Day: 15 a day; Second Hand Exposure: No; Do You Dip or Chew Tobacco: No; Tobacco Cessation Education Requested by Patient: No Hx Alcohol Use: Yes Alcohol type: beer Hx Substance Use: No Preferred Language: Peruvian Communication Ability: Effective County Coroner Required: No Beliefs That Will Affect Care: None marital status: Single Current Living Situation: Family Current Living Situation Comment: keena vinson Other Information That Helps Us Care for You: No Feels Safe at Home: Yes Safety Concerns: Feels Safe At This Time Assistive Devices: CPAP and Oxygen - at Night Review of Systems Review of Systems: All systems reviewed & are unremarkable except as noted in HPI & below Physical Exam Constitutional: WD/WN, vitals as above Eyes: EOM intact bilaterally; no conjunctival abnormality ENMT: external ear and nose normal, oropharynx normal Neck: trachea midline, no thyromegaly normal visual inspection Respiratory: normal respiratory effort, lungs clear to auscultation no respiratory distress Cardiovascular: RRR, no murmur, no edema Gastrointestinal (Abdomen): Inspection/Auscultation: abdomen normal to inspection; abdomen not distended Skin: no rashes, warm and dry Neurologic: moves all extremities and awake Motor/Sensory: + sensory deficit (Neuropathy in legs) Psychiatric: Orientation: alert, oriented to person and cooperative Results & Data Results & Data ([facility]) Vital Signs (Past 12 Hours) Vital Signs Temp Pulse Pulse Resp BP BP Pulse Ox 02/08/20 17:45 37 C 77 16 187/85 H 97 02/08/20 15:00 77 22 144/75 H 02/08/20 14:30 80 24 02/08/20 14:00 79 16 02/08/20 13:30 20 100 02/08/20 13:00 78 22 100 02/08/20 12:46 74 24 97 02/08/20 12:33 79 24 169/77 H 98 02/08/20 12:11 36.7 C 84 20 169/77 H 97 Code Status & VTE Plan VTE Prophylaxis Plan VTE Prophylaxis will be ordered: Yes PG Care Time/CCT Total # of Minutes Spent Total Time Spent with Patient: Total time spent is greater than 50% in coordination of care (as documented) at patient's floor/unit and/or counseling patient: Coding Level of Care Code 70863 Initial Inpt Care Lvl 3 Diagnoses Recurrent falls R29.6 ESRD (end stage renal disease) on dialysis N18.6; Z99.2 Depression F32.9 Hypertension I10 Diabetes mellitus E11.9 Hypothyroidism E03.9 Obstructive sleep apnea G47.33 DVT prophylaxis Z29.9
[2020-02-08] MEDS: busPIRone 5 MG TAB PO SCH (21:19)
[2020-02-08] MEDS: ASPIRIN 81 MG ECTAB PO SCH (21:19)
[2020-02-08] MEDS: carvediloL 3.125 MG TAB PO SCH (21:19)
[2020-02-08] MEDS: GABAPENTIN 300 MG CAP PO SCH (21:20)
[2020-02-08] MEDS: amLODIPine BESYLATE 5 MG TAB PO SCH (21:20)
[2020-02-08] MEDS: HEPARIN SOD 5,000 UNIT/0.5 ML VIAL SQ SCH ×2 (21:26→21:30)
[2020-02-09] MEDS ORDERED: PHARMACY GLYCEMIC MGMT CONSULT PRN (00:37)
[2020-02-09] MEDS: INSULIN GLARGINE SOLOSTAR 100 UNITS/ML 3 ML PEN SC SCH ×3 (02:01→21:36)
[2020-02-09] MEDS: INSULIN ASPART 100 UNITS/ML 3 ML PEN SC SCH ×5 (02:02→21:35)
[2020-02-09] MEDS: LEVOTHYROXINE SODIUM 125 MCG TABLET PO SCH (05:49)
[2020-02-09 06:14] LABS: Hematocrit (blood only) 30.7 % (42-52); Hemoglobin 9.8 g/dL (14.0-18.0); Mean Corpuscular Hemoglobin 30.6 pg (25-34); Mean Corpuscular Hgb Conc 31.9 g/dL (32-36); Mean Corpuscular Volume 95.9 fL (80-100); Mean Platelet Volume 10.5 fL (7.4-10.4); Platelet Count 248 K/uL (130-400); RDW Coefficient of Variation 13.3 % (11.5-14.5); RDW Standard Deviation 45.9 fL (36.4-46.3); White Blood Count 7.69 K/uL (4.8-10.8)
[2020-02-09 07:17] LABS: BUN Creatinine Ratio 9.9 (10-20); Calcium 8.7 mg/dl (8.5-10.1); Creatinine Clr Calc Pharmacy 9.6 ml/min; Est GFR (African American) 5.7; Est GFR (Non-African American) 4.9; Magnesium 2.4 mg/dl (1.8-2.4); Potassium 5.3 mmol/L (3.5-5.1)
[2020-02-09] MEDS: CALCIUM ACETATE 667 MG CAP/TAB PO SCH ×3 (08:58→16:59)
[2020-02-09] MEDS: busPIRone 5 MG TAB PO SCH ×2 (08:58→21:35)
[2020-02-09] MEDS: carvediloL 3.125 MG TAB PO SCH ×2 (09:00→21:34)
[2020-02-09] MEDS: LOSARTAN POTASSIUM 50 MG TAB PO SCH (09:00)
[2020-02-09] MEDS ORDERED: INSULIN GLARGINE SOLOSTAR 100 UNITS/ML 3 ML PEN SC SCH (09:00)
[2020-02-09] MEDS: FUROSEMIDE 80 MG TAB PO SCH ×2 (09:00→16:59)
[2020-02-09] MEDS: HEPARIN SOD 5,000 UNIT/0.5 ML VIAL SQ SCH ×2 (09:02→21:36)
[2020-02-09] MEDS: ESCITALOPRAM OXALATE ORAL SOLN 5 MG/5 ML UDP PO SCH (09:04)
--- NOTE | 2020-02-09 09:04 | Pharmacy Report ---
Glycemic Control Consultation - Date of Service February 09, 2020 - Scope Scope: Glycemic Pharmacist consulted for glycemic control and to write orders per [facility] inpatient glycemic control protocol. - Objective Weight: 121.4 kg Accuchecks BSG (last 24hrs): 02/08/20 02/08/20 02/08/20 13:40 13:47 18:07 Glucose 171 H POC Glucose 142 H POC Glucose (other) 163 H 02/09/20 02/09/20 02/09/20 01:51 05:29 08:22 Glucose 175 H POC Glucose 174 H 191 H POC Glucose (other) Laboratory Data (last 24hrs): 02/08/20 02/09/20 13:40 05:29 Potassium 5.3 H 5.3 H Carbon Dioxide 25 23 Anion Gap 10.0 9.0 Creatinine 9.40 H* 9.99 H* D Est Cr Clr Drug Dosing 10.2 9.6 - Recent Pertinent Medications Outpatient Anti-diabetic Regimen: * Tresiba 10 units daily * NPH Sliding scale * Note: Patient reports not using his insulin lately * A1c = 13.4 % 01/23/20 * However, this result is likely somewhat unreliable in ESRD patients d/t interactions between the A1c analyzing technique and high levels of urea in ESRD, reduced RBC life span, iron deficiency anemia, and EPO administration. HbA1c > 7.5% in ESRD patient may overestimate the extent of hyperglycemia in ESRD patients. Risk Factors for Insulin Resistance: * Diet: Type 2 DM - Assessment & Plan Assessment & Plan: ASSESSMENT: * 64 year old male admitted for falls, weakness, missed HD last 2 sessions. * Type 2 diabetic, has not been taking his insulin at home. * Will begin with similar insulin dosing as previous admission a few weeks ago and titrate to goal. PLAN FOR INPATIENT GLYCEMIC CONTROL: * Basal insulin * Lantus 8 units SQ BID * Bolus insulin * NovoLog per scale ACHS or Q6hrs while NPO * Goal Range: Low 120 mg/dL - High 150 mg/dL * Correction Factor: 25 mg/dL/unit * Nutritional / Prandial insulin per carb ratio of 1 unit per 8 grams CHO consumed * Please note that the plan above was derived based on current level of insulin resistance and hospital stress. These recommendations are appropriate for inpatient admission only. Plan of care upon discharge will need to be reassessed to avoid potential outpatient hypo/hyperglycemia. Thank you.
[2020-02-09] MEDS: NICOTINE 21 MG/24 HR TDSY TD SCH (09:06)
[2020-02-09] MEDS ORDERED: SODIUM CHLORIDE 0.9% 1000ML 1,000 ML IV PRN (11:19)
[2020-02-09] MEDS ORDERED: HEPARIN SOD (PORCINE) 1000 UNIT/ML 10 ML VIAL IV ONE (11:19)
[2020-02-09] MEDS ORDERED: EPOETIN ALFA 10,000 UNITS/ML VIAL IV ONE (11:19)
--- NOTE | 2020-02-09 11:41 | Nephrology Consultation ---
Date of Consultation February 09, 2020 Assessment & Plan (1) ESRD (end stage renal disease) on dialysis: * Medical nonadherence with prescribed dialysis treatments. Patient did not attend his last two treatments. He presents to [facility] w/ azotemia, 9 kg above his EDW and a worsening L pleural effusion * Chronic HD orders: [facility] TTS 4hr 15min 3K 2.5Ca F-250NR EDW 113kg * Will provide HD today and attempt 4 L UF (2) Anemia in chronic kidney disease: * Will provide MARILYN w/ HD today (3) Pleural effusion, left: * Attempt 4 L UF w/ HD today. Monitor respiratory status (4) Debilitated: * Recommend consultation w/ psychologist social to determine whether patient requires home health assistance or SNF at time of discharge History of Present Illness Reason for Consultation: ESRD on HD Attending Physician: Perez Burkett History of Present Illness Mr. Patiño is a 64 year old white male who is seen at the request of Dr. Ugalde to provide HD and assist w/ medical management during his hospitalization. Medical records in the EMR were reviewed today and are summarized as follows: Mr. Patiño has ESRD due to diabetic nephropathy. He dialyzes TTS at [facility] under the care of Dr. Francis (4hr 15min, 3k 2.5Ca 1Mg F-250NR EDW 113kg, access L upper arm AVF). Mr. Patiño's medical history is significant for AODM, JANET, ASCVD, current tobacco use, hypothyroidism, obesity. staff research scientist at [facility] HD unit report this am that Mr. Patiño refused his last two dialysis treatments. He has been presenting to the unit disheveled and with 6 - 9 kg fluid gains. Education on volume restriction has been provided. staff research scientist has suggested SNF to patient but he has refused. Mr. Patiño presented to the hospital yesterday evening for evaluation of weakness. He has fallen several times. He was also dyspneic and CXR revealed progression of his L pleural effusion. Allergies Allergy/AdvReac Type Severity Reaction Status Date / Time lactose Allergy Intermediate Gastrointestinal Verified 02/08/20 15:02 Upset Home Medications Home Medications Medication Instructions Recorded Confirmed Type aspirin 81 mg PO HS 12/22/17 02/08/20 History nitroglycerin See Rx Instructions .ROUTE 12/22/17 02/08/20 History .COMPLEX PRN buspirone 10 mg PO BID 01/27/18 02/08/20 History FreeStyle Virgil 14 Day Sensor #6 ea NS 02/05/19 02/08/20 Rx losartan 50 mg tablet 50 mg PO DAILY 02/05/19 02/08/20 History pen needle, diabetic 32 gauge x #100 ea 02/05/19 02/08/20 Rx 1/4" insulin degludec 100 unit/mL (3 10 units SQ DAILY ml 05/28/19 02/08/20 History mL) subcutaneous pen Wheelchair (Manual or Powered) #1 ea 09/11/19 02/08/20 Rx gabapentin 100 mg capsule 300 mg PO HS cap 09/21/19 02/08/20 History carvedilol 3.125 mg tablet 3.125 mg PO BID #60 tab 12/04/19 02/08/20 Rx escitalopram oxalate 5 mg tablet 5 mg PO QAM 01/09/20 02/08/20 History ProRenal QD 1 cap PO QDD 01/22/20 02/08/20 History calcium acetate(phosphat bind) 2,001 mg PO TIDM 01/22/20 02/08/20 History calcium carbonate [Calcium 500] 500 mg PO TUTHSA 01/22/20 02/08/20 History ergocalciferol (vitamin D2) 1,250 mcg PO WK 01/22/20 02/08/20 History [Vitamin D2] furosemide [Lasix] 80 mg PO BID 01/22/20 02/08/20 History levothyroxine 125 mcg PO DAILYBB 01/22/20 02/08/20 History nicotine [Nicoderm CQ] 21 mg TRANSDERMAL QAM 30 Days ea 01/27/20 02/08/20 Rx amlodipine 10 mg PO HS 02/08/20 02/08/20 History insulin NPH isoph U-100 human 0 unit SUBCUT .SLIDING SCALE 02/08/20 02/08/20 History [Novolin N Flexpen] Patient History Medical History Anemia in chronic kidney disease Anxiety GERD (gastroesophageal reflux disease) Hyperlipidemia On home oxygen therapy 2L n/c with cpap at HS Osteoarthritis Peripheral neuropathy bilt legs/feet Pleural effusion, left Secondary hyperparathyroidism of renal origin Surgical History History of bilateral cataract extraction History of cardiac cath 01/2018 "about 2-3 weeks"; no stents placed @ [facility] by Dr. Coronel History of carpal tunnel release R wrist History of colonoscopy History of repair of anterior cruciate ligament of left knee History of repair of anterior cruciate ligament of right knee History of tonsillectomy History of tooth extraction wisdom teeth Family History Mother Family history of diabetes mellitus Grandmother Family history of diabetes mellitus maternal Other Colorectal cancer Inflammatory bowel disease Melanoma Social History Smoking Status: Current every day smoker Tobacco Type: Cigarettes Cigarettes Per Day: 15 a day; Second Hand Exposure: No; Do You Dip or Chew Tobacco: No; Tobacco Cessation Education Requested by Patient: No Hx Alcohol Use: Yes Alcohol type: beer Hx Substance Use: No Preferred Language: Egyptian Communication Ability: Effective Customer Success Manager Required: No Beliefs That Will Affect Care: None marital status: Single Current Living Situation: Family Current Living Situation Comment: keena vinson Other Information That Helps Us Care for You: No Feels Safe at Home: Yes Safety Concerns: Feels Safe At This Time Assistive Devices: Wheelchair Review of Systems Constitutional: + weakness; no fever Eyes: no problem reported Ear, Nose, Mouth, Throat: no problem reported Respiratory: + dyspnea Cardiovascular: + edema; no chest pain and no palpitations Gastrointestinal: no abdominal pain, no vomiting and no diarrhea/loose stools Musculoskeletal: no back pain Integumentary: no rash Neurologic: + falls; no dizziness Physical Exam Constitutional: + ill appearing and + disheveled Eyes: PERRL, conjunctivae normal, anicteric sclerae ENMT: external ear and nose normal, oropharynx normal Neck: trachea midline, no thyromegaly Respiratory: normal respiratory effort Auscultation: + rales (diminished breath sounds at L base) Cardiovascular: RRR, no murmur, no edema Gastrointestinal (Abdomen): normal bowel sounds, soft, nontender, no hepatosplenomegaly Musculoskeletal: Extremities: no cyanosis Skin: no rashes Neurologic: awake Results & Data ([facility]) Vital Signs (Past 12 Hours) Vital Signs Temp Pulse Pulse Resp BP Pulse Ox 02/09/20 07:20 36.2 C L 73 16 160/68 H 96 02/09/20 03:42 77 16 96 Laboratory Results Laboratory Tests 02/09/20 02/09/20 05:29 05:29 WBC 7.69 Hgb 9.8 L Hct 30.7 L Plt Count 248 Sodium 136 Potassium 5.3 H Chloride 104 Carbon Dioxide 23 BUN 100 H Creatinine 9.99 H* D Glucose 175 H PG Care Time/CCT Total # of Minutes Spent Total Time Spent with Patient: Total time spent is greater than 50% in coordination of care (as documented) at patient's floor/unit and/or counseling patient: Coding Level of Care Code 36972 Inpt Consult Level 5 Diagnoses ESRD (end stage renal disease) on dialysis N18.6; Z99.2 Anemia in chronic kidney disease N18.9; D63.1 Pleural effusion, left J90 Debilitated R53.81
--- NOTE | 2020-02-09 12:47 | Pulmonary Consultation ---
Date of Consultation February 09, 2020 Assessment & Plan (1) Pleural effusion, left: --Left-sided pleural effusion Bedside ultrasound performed 02/09/2020 There is no loculation, small Patient already had thoracentesis done back 01/23/2020 which showed exudative fluid, culture of the fluid is negative to date Patient is in no acute distress. Underlying dialysis also playing a role along with diastolic CHF and missed dialysis No acute indication for thoracentesis in an asymptomatic patient Continue with diuresis --JANET Continue with CPAP --Morbid obesity Advised to lose weight --Plan Patient has small pleural effusion with some consolidation appreciated around it. This could be resolving pneumonia from previous admission. I would give doxycycline for 5 days. Repeat imaging in 4 to 6 weeks Continue with dialysis Please note the above document was generated using voice recognition software. It may contain grammatical, syntax or spelling errors.Any formal questions or concerns about the content, text or information contained within the body of this dictation should be directly addressed to the provider for clarification. (2) Obstructive sleep apnea: (3) ESRD (end stage renal disease) on dialysis: History of Present Illness Attending Physician: Perez Burkett History of Present Illness 64-year-old male past medical history of end-stage renal disease, tobacco abuse, JANET on CPAP was recently in the hospital for left lower lobe pneumonia and left-sided pleural effusion for which she had thoracentesis done on 01/23/2020. He is again in the hospital s/p fall and missed dialysis. Patient had a CT abdomen pelvis done when he came in. Shows small left-sided pleural effusion with left lower lobe consolidative process. Pulmonary was consulted for the pleural effusion. At the time of examination patient stated that the reason he came to the hospital was that he was feeling weak and he had not had dialysis for last 2 times. He denies any shortness of breath, no chest pain, no headache, no nausea, no vomiting. No cough. No fever or chills Social history: Greater than [id number] smoking history actively smoking half a pack a day Allergies Allergy/AdvReac Type Severity Reaction Status Date / Time lactose Allergy Intermediate Gastrointestinal Verified 02/08/20 15:02 Upset Home Medications Home Medications Medication Instructions Recorded Confirmed Type aspirin 81 mg PO HS 12/22/17 02/08/20 History nitroglycerin See Rx Instructions .ROUTE 12/22/17 02/08/20 History .COMPLEX PRN buspirone 10 mg PO BID 01/27/18 02/08/20 History FreeStyle Virgil 14 Day Sensor #6 ea NS 02/05/19 02/08/20 Rx losartan 50 mg tablet 50 mg PO DAILY 02/05/19 02/08/20 History pen needle, diabetic 32 gauge x #100 ea 02/05/19 02/08/20 Rx 1/4" insulin degludec 100 unit/mL (3 10 units SQ DAILY ml 05/28/19 02/08/20 History mL) subcutaneous pen Wheelchair (Manual or Powered) #1 ea 09/11/19 02/08/20 Rx gabapentin 100 mg capsule 300 mg PO HS cap 09/21/19 02/08/20 History carvedilol 3.125 mg tablet 3.125 mg PO BID #60 tab 12/04/19 02/08/20 Rx escitalopram oxalate 5 mg tablet 5 mg PO QAM 01/09/20 02/08/20 History ProRenal QD 1 cap PO QDD 01/22/20 02/08/20 History calcium acetate(phosphat bind) 2,001 mg PO TIDM 01/22/20 02/08/20 History calcium carbonate [Calcium 500] 500 mg PO TUTHSA 01/22/20 02/08/20 History ergocalciferol (vitamin D2) 1,250 mcg PO WK 01/22/20 02/08/20 History [Vitamin D2] furosemide [Lasix] 80 mg PO BID 01/22/20 02/08/20 History levothyroxine 125 mcg PO DAILYBB 01/22/20 02/08/20 History nicotine [Nicoderm CQ] 21 mg TRANSDERMAL QAM 30 Days ea 01/27/20 02/08/20 Rx amlodipine 10 mg PO HS 02/08/20 02/08/20 History insulin NPH isoph U-100 human 0 unit SUBCUT .SLIDING SCALE 02/08/20 02/08/20 History [Novolin N Flexpen] Patient History Medical History Anemia in chronic kidney disease Anxiety GERD (gastroesophageal reflux disease) Hyperlipidemia On home oxygen therapy 2L n/c with cpap at HS Osteoarthritis Peripheral neuropathy bilt legs/feet Pleural effusion, left Secondary hyperparathyroidism of renal origin Surgical History History of bilateral cataract extraction History of cardiac cath 01/2018 "about 2-3 weeks"; no stents placed @ [facility] by Dr. Coronel History of carpal tunnel release R wrist History of colonoscopy History of repair of anterior cruciate ligament of left knee History of repair of anterior cruciate ligament of right knee History of tonsillectomy History of tooth extraction wisdom teeth Family History Mother Family history of diabetes mellitus Grandmother Family history of diabetes mellitus maternal Other Colorectal cancer Inflammatory bowel disease Melanoma Social History Smoking Status: Current every day smoker Tobacco Type: Cigarettes Cigarettes Per Day: 15 a day; Second Hand Exposure: No; Do You Dip or Chew Tobacco: No; Tobacco Cessation Education Requested by Patient: No Hx Alcohol Use: Yes Alcohol type: beer Hx Substance Use: No Preferred Language: Turkmen Communication Ability: Effective Code Enforcement Inspector Required: No Beliefs That Will Affect Care: None marital status: Single Current Living Situation: Family Current Living Situation Comment: keena vinson Other Information That Helps Us Care for You: No Feels Safe at Home: Yes Safety Concerns: Feels Safe At This Time Assistive Devices: CPAP and Wheelchair Review of Systems Review of Systems: All systems reviewed & are unremarkable except as noted in HPI & below Physical Exam Physical Exam: Constitutional: No acute distress HEENT: EOMI, PERRLA, thick neck Respiratory system: Decreased air entry bilaterally, mild crackles bilateral lower lobes, no wheeze, no rhonchi CVS: S1-S2 positive, no murmurs or gallops, distant heart sounds Abdomen: Soft, nontender, nondistended, positive bowel sounds x4, obese Extremities: +2 pulses bilaterally radialis/ dorsalis pedis, no cyanosis, +1 edema bilateral lower extremity Neuro: Awake alert oriented x3 Psych: Normal mood and affect G/U: No Mullins Skin: no rashes, warm and dry Lymphatic: no cervical or axillary lymphadenopathy Results & Data Results & Data ([facility]) Vital Signs (Past 12 Hours) Vital Signs Temp Pulse Pulse Resp BP Pulse Ox 02/09/20 07:20 36.2 C L 73 16 160/68 H 96 02/09/20 03:42 77 16 96 02/09/20 05:29 02/09/20 05:29 PG Care Time/CCT Total # of Minutes Spent Total Time Spent with Patient: Total time spent is greater than 50% in coordination of care (as documented) at patient's floor/unit and/or counseling patient: Coding Level of Care Code 82629 Initial Inpt Care Lvl 3 Diagnoses Pleural effusion, left J90 Obstructive sleep apnea G47.33 ESRD (end stage renal disease) on dialysis N18.6; Z99.2
[2020-02-09] MEDS: HEPARIN SOD (PORCINE) 1000 UNIT/ML 10 ML VIAL IV SCH ×2 (16:20→16:21)
[2020-02-09] MEDS: GABAPENTIN 300 MG CAP PO SCH (21:34)
[2020-02-09] MEDS: amLODIPine BESYLATE 5 MG TAB PO SCH (21:34)
[2020-02-09] MEDS: ASPIRIN 81 MG ECTAB PO SCH (21:35)
--- NOTE | 2020-02-09 22:38 | Hospitalist Progress Note ---
Date of Service February 09, 2020 Assessment & Plan (1) Recurrent falls: Multiple falls at home. Sensory ataxia likely to blame. Deconditioning from recent hospital stay also likely contributing. Did COVID-19 PCR -- negative. PT, OT. Ideally he seeks out rehab to ensure safe transition to home. (2) ESRD (end stage renal disease) on dialysis: Poor compliance. s/p HD today. Reinforce compliance. (3) Depression: Continue buspirone & escitalopram Could be contributing to poor compliance with HD sessions, etc (4) Hypertension: BPs high likely due to volume overload from missed HD. BPs should improve s/p HD today. Continue home amlodipine, carvedilol, Lasix, losartan. (5) Diabetes mellitus: A1cs indicate poor control; recently 13% & 14%. however control here is good on basal-bolus insulin likely noncompliance with diet and insulins at home (6) Hypothyroidism: TSH was 1.5 in 01/2020. Continue home Synthroid 125 mcg. (7) Obstructive sleep apnea: CPAP (8) Pleural effusion, left: pulmonary consult requested; need for repeat thoracentesis?? fluid transudative from prior tap (9) Sensory ataxia: long-standing dx sees Dr Ramirez, [facility] Neurology leading to severe ambulatory dysfunction PT, OT B12 level robust in 2018 (10) DVT prophylaxis: Heparin 5,000 units SQ Q12h Admission and Anticipated Discharge Date Admission Date: February 08, 2020 Subjective patient receiving HD during my bedside rounds. 4 liters of fluid removal was goal for today. was on his CPAP when I entered room; he removed it to talk. reports 10+ falls at home recently - often times they are during transfers as he uses a power chair and wheelchair at home. he fell into the bathtub recently. he fell trying to get onto the toilet another time. lives with son -- but son works full-time so he is alone many times. he is not terribly interested in rehab. when asked why he did not attend HD on Tuesday or he said "I just didn't feel like going. I didn't feel up to it." Review of Systems Constitutional: + fatigue; no fever and no anorexia Respiratory: + cough Cardiovascular: no chest pain Gastrointestinal: no abdominal pain Physical Exam Constitutional: + morbidly obese; no acute distress and no altered mental status ENMT: external ear and nose normal, oropharynx normal Respiratory: Auscultation: + diminished lung sounds (left base ) and + crackles (left base); no wheezes Cardiovascular: Rate/Rhythm: regular rate and regular rhythm Heart Sounds: normal S1, normal S2 and + murmur (2/6 LSB) Vessels: posterior tibial pulses present and dorsalis pedis pulses present; no JVD Extremities: + edema (1+ b/l ) Gastrointestinal (Abdomen): normal bowel sounds, soft, nontender, no hepatosplenomegaly Psychiatric: Orientation: alert and oriented x 3 Results & Data Results & Data ([facility]) Vital Signs (Past 12 Hours) Vital Signs Temp Pulse Pulse Pulse Resp BP BP 02/09/20 22:10 87 20 02/09/20 21:31 65 157/72 H 02/09/20 18:24 36.7 C 71 16 156/72 H 02/09/20 18:15 37.1 C 67 171/75 H 02/09/20 17:15 67 171/75 H 02/09/20 17:00 53 L 115/80 02/09/20 16:40 62 156/73 H 02/09/20 16:20 60 151/70 H 02/09/20 16:00 58 L 132/57 L 02/09/20 15:40 59 L 120/52 L 02/09/20 15:20 58 L 134/59 L 02/09/20 15:00 59 L 123/54 L 02/09/20 14:40 55 L 119/58 L 02/09/20 14:20 57 L 120/58 L 02/09/20 14:00 55 L 119/67 02/09/20 13:40 56 L 125/54 L 02/09/20 13:20 60 137/66 02/09/20 13:14 37.3 C 62 62 125/64 Pulse Ox 02/09/20 22:10 94 02/09/20 21:31 97 02/09/20 18:24 95 02/09/20 18:15 02/09/20 17:15 02/09/20 17:00 02/09/20 16:40 02/09/20 16:20 02/09/20 16:00 02/09/20 15:40 02/09/20 15:20 02/09/20 15:00 02/09/20 14:40 02/09/20 14:20 02/09/20 14:00 02/09/20 13:40 02/09/20 13:20 02/09/20 13:14 Laboratory Results Laboratory Results - last 24 hr 02/08/20 02/09/20 02/09/20 21:26 01:51 05:29 WBC 7.69 RBC 3.20 L Hgb 9.8 L Hct 30.7 L MCV 95.9 MCH 30.6 MCHC 31.9 L RDW Std Deviation 45.9 RDW Coeff of Jorge A 13.3 Plt Count 248 MPV 10.5 H Sodium Potassium Chloride Carbon Dioxide Anion Gap BUN Creatinine Est Cr Clr Drug Dosing Est GFR ( Amer) Est GFR (Non-Af Amer) BUN/Creatinine Ratio Glucose POC Glucose 174 H Calcium Magnesium Nasal Screen MRSA (PCR) Negative COVID-19 Eval Order COVID-19 PCR 02/09/20 02/09/20 02/09/20 05:29 08:22 12:12 WBC RBC Hgb Hct MCV MCH MCHC RDW Std Deviation RDW Coeff of Jorge A Plt Count MPV Sodium 136 Potassium 5.3 H Chloride 104 Carbon Dioxide 23 Anion Gap 9.0 BUN 100 H Creatinine 9.99 H* D Est Cr Clr Drug Dosing 9.6 Est GFR ( Amer) 5.7 Est GFR (Non-Af Amer) 4.9 BUN/Creatinine Ratio 9.9 L Glucose 175 H POC Glucose 191 H 171 H Calcium 8.7 Magnesium 2.4 Nasal Screen MRSA (PCR) COVID-19 Eval Order COVID-19 PCR 02/09/20 02/09/20 02/09/20 12:57 12:57 17:10 WBC RBC Hgb Hct MCV MCH MCHC RDW Std Deviation RDW Coeff of Jorge A Plt Count MPV Sodium Potassium Chloride Carbon Dioxide Anion Gap BUN Creatinine Est Cr Clr Drug Dosing Est GFR ( Amer) Est GFR (Non-Af Amer) BUN/Creatinine Ratio Glucose POC Glucose 119 H Calcium Magnesium Nasal Screen MRSA (PCR) COVID-19 Eval Order Covid19 Done at [facility] COVID-19 PCR NEGATIVE 02/09/20 21:02 WBC RBC Hgb Hct MCV MCH MCHC RDW Std Deviation RDW Coeff of Jorge A Plt Count MPV Sodium Potassium Chloride Carbon Dioxide Anion Gap BUN Creatinine Est Cr Clr Drug Dosing Est GFR ( Amer) Est GFR (Non-Af Amer) BUN/Creatinine Ratio Glucose POC Glucose 125 H Calcium Magnesium Nasal Screen MRSA (PCR) COVID-19 Eval Order COVID-19 PCR PG Care Time/CCT Total # of Minutes Spent Total Time Spent with Patient: Total time spent is greater than 50% in coordination of care (as documented) at patient's floor/unit and/or counseling patient: Coding Level of Care Code 49695 Subseq Hosp Care Lvl 2 Diagnoses Recurrent falls R29.6 ESRD (end stage renal disease) on dialysis N18.6; Z99.2 Depression F32.9 Hypertension I10 Diabetes mellitus E11.9 Hypothyroidism E03.9 Obstructive sleep apnea G47.33 Pleural effusion, left J90 Sensory ataxia R27.8 DVT prophylaxis Z29.9
[2020-02-10] MEDS: LEVOTHYROXINE SODIUM 125 MCG TABLET PO SCH (05:43)
[2020-02-10 07:30] LABS: BUN Creatinine Ratio 8.5 (10-20); Calcium 8.5 mg/dl (8.5-10.1); Creatinine Clr Calc Pharmacy 14.8 ml/min; Est GFR (African American) 9.6; Est GFR (Non-African American) 8.3; Potassium 4.3 mmol/L (3.5-5.1)
[2020-02-10] MEDS: NICOTINE 21 MG/24 HR TDSY TD SCH (08:51)
[2020-02-10] MEDS: LOSARTAN POTASSIUM 50 MG TAB PO SCH (08:52)
[2020-02-10] MEDS: NEPHROCAPS PO SCH (08:52)
[2020-02-10] MEDS: busPIRone 5 MG TAB PO SCH ×2 (08:53→21:04)
[2020-02-10] MEDS: carvediloL 3.125 MG TAB PO SCH ×2 (08:53→21:04)
[2020-02-10] MEDS: ESCITALOPRAM OXALATE ORAL SOLN 5 MG/5 ML UDP PO SCH (08:54)
[2020-02-10] MEDS: CALCIUM ACETATE 667 MG CAP/TAB PO SCH ×3 (08:54→17:55)
[2020-02-10] MEDS: FUROSEMIDE 80 MG TAB PO SCH ×2 (08:54→17:55)
[2020-02-10] MEDS: INSULIN ASPART 100 UNITS/ML 3 ML PEN SC SCH ×4 (08:55→21:06)
[2020-02-10] MEDS: HEPARIN SOD 5,000 UNIT/0.5 ML VIAL SQ SCH ×2 (08:56→21:04)
[2020-02-10] MEDS: INSULIN GLARGINE SOLOSTAR 100 UNITS/ML 3 ML PEN SC SCH ×2 (08:57→21:06)
--- NOTE | 2020-02-10 09:47 | XRay Report ---
XR chest 1V portable CLINICAL HISTORY: f/u COMPARISON STUDY: Chest radiograph February 08, 2020. FINDINGS: Interstitial thickening has improved. There is persistent left pleural effusion with left b asilar opacity. Cardiomediastinal silhouette is stable. There is evidence for left lower lobe volume loss. There is no pneumothorax. No right pleural effusion is identified. IMPRESSION: 1. Interval improvement in pulmonary vascular congestion. 2. Persistent small to moderate left pleural effusion and left basilar opacity. Evidence for left low er lobe volume loss. Radiographic follow-up is recommended. ACT 112: Negative or not required by law. Electronically signed by: Quentin Morales M.D. 02/10/2020 9:46 AM
--- NOTE | 2020-02-10 11:18 | Nephrology Progress Note ---
Date of Service February 10, 2020 Assessment & Plan (1) ESRD (end stage renal disease) on dialysis: * Medical nonadherence with prescribed dialysis treatments. Patient did not attend his last two outpatient treatments and then presented to [facility] w/ azotemia, 9 kg above his EDW and a worsening L pleural effusion * HD completed yesterday for 4 L UF. No complications * Volume status improved. Electrolyte balance is acceptable. Will schedule next HD for AM to attempt further UF * Reviewed importance of attending outpatient dialysis treatments on a regular schedule w/ patient today (2) Anemia in chronic kidney disease: * Will provide MARILYN w/ HD tomorrow (3) Pleural effusion, left: * 4 L UF obtained w/ HD yesterday. Breathing is clinically improved. Will monitor (4) Debilitated: * telephone services sales representative are assessing needs for home care vs. SNF Admission and Anticipated Discharge Date Admission Date: February 08, 2020 Subjective Mr. Patiño was seen & examined in his hospital room this morning. He was breathing comfortably on RA. He has not yet been out of bed. He has not yet been assessed by PT Review of Systems Constitutional: + fatigue; no fever and no anorexia Eyes: no problem reported Ear, Nose, Mouth, Throat: no problem reported Respiratory: + cough Cardiovascular: no chest pain Gastrointestinal: no abdominal pain Musculoskeletal: no back pain Integumentary: no rash Neurologic: no confusion Physical Exam Constitutional: + ill appearing and + disheveled Eyes: PERRL, conjunctivae normal, anicteric sclerae ENMT: external ear and nose normal, oropharynx normal Neck: trachea midline, no thyromegaly Respiratory: normal respiratory effort Auscultation: lungs clear to auscultation bilaterally Cardiovascular: RRR, no murmur, no edema Gastrointestinal (Abdomen): normal bowel sounds, soft, nontender, no hepatosplenomegaly Musculoskeletal: Extremities: no cyanosis Skin: no rashes Neurologic: awake Results & Data ([facility]) Vital Signs (Past 12 Hours) Vital Signs Temp Pulse Pulse Resp BP Pulse Ox 02/10/20 07:12 36.6 C 62 16 127/58 L 97 02/10/20 03:44 79 16 96 02/09/20 23:32 36.5 C 62 16 137/65 98 Laboratory Results Laboratory Tests 02/09/20 02/10/20 05:29 06:26 WBC 7.69 Hgb 9.8 L Hct 30.7 L Plt Count 248 Sodium 138 Potassium 4.3 D Chloride 105 Carbon Dioxide 26 BUN 55 H Creatinine 6.47 H* D Glucose 123 H PG Care Time/CCT Total # of Minutes Spent Total Time Spent with Patient: Total time spent is greater than 50% in coordination of care (as documented) at patient's floor/unit and/or counseling patient: Coding Level of Care Code 47830 Subseq Hosp Care Lvl 3 Diagnoses ESRD (end stage renal disease) on dialysis N18.6; Z99.2 Anemia in chronic kidney disease N18.9; D63.1 Pleural effusion, left J90 Debilitated R53.81
--- NOTE | 2020-02-10 12:37 | Pulmonology Progress Note ---
Date of Service February 10, 2020 Assessment & Plan (1) Pleural effusion, left: --Left-sided pleural effusion Bedside ultrasound performed 02/09/2020 There is no loculation, small Patient already had thoracentesis done back 01/23/2020 which showed exudative fluid, culture of the fluid is negative to date Patient is in no acute distress. Underlying dialysis also playing a role along with diastolic CHF and missed dialysis No acute indication for thoracentesis in an asymptomatic patient Continue with diuresis --JANET Continue with CPAP --Morbid obesity Advised to lose weight --Plan Patient clinically doing much better after dialysis. Repeat imaging in 4 to 6 weeks Pulmonary will sign off. Please recall if needed. Please note the above document was generated using voice recognition software. It may contain grammatical, syntax or spelling errors.Any formal questions or concerns about the content, text or information contained within the body of this dictation should be directly addressed to the provider for clarification. (2) Obstructive sleep apnea: (3) ESRD (end stage renal disease) on dialysis: Admission and Anticipated Discharge Date Admission Date: February 08, 2020 Subjective Patient seen and examined at bedside. No acute distress, no adverse events overnight. Denies any chest pain, coughing a little bit bringing up clear phlegm. The shortness of breath is significantly improved Patient has not been using incentive spirometry. Importance of using it explained with the patient. Good appetite. No nausea or vomiting. Review of Systems Review of Systems: All systems reviewed & are unremarkable except as noted in Subjective Physical Exam Physical Exam: Constitutional: No acute distress HEENT: EOMI, PERRLA, thick neck Respiratory system: Decreased air entry bilaterally, mild crackles bilateral lower lobes, no wheeze, no rhonchi CVS: S1-S2 positive, no murmurs or gallops, distant heart sounds Abdomen: Soft, nontender, nondistended, positive bowel sounds x4, obese Extremities: +2 pulses bilaterally radialis/ dorsalis pedis, no cyanosis, no edema Neuro: Awake alert oriented x3 Psych: Normal mood and affect G/U: No Mullins Skin: no rashes, warm and dry Lymphatic: no cervical or axillary lymphadenopathy Results & Data Results & Data ([facility]) Vital Signs (Past 12 Hours) Vital Signs Temp Pulse Pulse Resp BP Pulse Ox 02/10/20 07:12 36.6 C 62 16 127/58 L 97 02/10/20 03:44 79 16 96 02/09/20 05:29 02/10/20 06:26 PG Care Time/CCT Total # of Minutes Spent Total Time Spent with Patient: Total time spent is greater than 50% in coordination of care (as documented) at patient's floor/unit and/or counseling patient: Coding Level of Care Code 60939 Subseq Hosp Care Lvl 2 Diagnoses Pleural effusion, left J90 Obstructive sleep apnea G47.33 ESRD (end stage renal disease) on dialysis N18.6; Z99.2
[2020-02-10] MEDS: DOXYCYCLINE HYCLATE 100 MG CAP PO SCH (17:55)
[2020-02-10] MEDS: ASPIRIN 81 MG ECTAB PO SCH (21:04)
[2020-02-10] MEDS: amLODIPine BESYLATE 5 MG TAB PO SCH (21:04)
[2020-02-10] MEDS: GABAPENTIN 300 MG CAP PO SCH (21:04)
[2020-02-10] MEDS ORDERED: LOSARTAN POTASSIUM 50 MG TAB PO ONE (22:45)
--- NOTE | 2020-02-10 22:46 | Hospitalist Progress Note ---
Date of Service February 10, 2020 Assessment & Plan (1) Recurrent falls: Multiple falls at home. Sensory ataxia likely to blame. Deconditioning from recent hospital stay also likely contributing. COVID-19 PCR -- negative. PT, OT both reporting concerns about his condition and need for more supervision. Ideally he seeks out rehab to ensure safe transition to home. Will need to involve case management heavily in his dispo given Dr Romano's reports, the falls he has been having, missing HD sessions, etc. NOT SAFE FOR DISCHARGE HOME. (2) ESRD (end stage renal disease) on dialysis: Poor compliance. s/p HD yesterday. To have HD tomorrow on Tuesday. (3) Depression: Continue buspirone & escitalopram Could be contributing to poor compliance with HD sessions, etc (4) Hypertension: Uncontrolled. Increase losartan to 50mg BID. Continue home amlodipine, carvedilol, Lasix. (5) Diabetes mellitus: A1cs indicate poor control; recently 13% & 14%. however control here is good on basal-bolus insulin likely noncompliance with diet and insulins at home (6) Hypothyroidism: TSH was 1.5 in 01/2020. Continue home Synthroid 125 mcg. (7) Obstructive sleep apnea: CPAP (8) Pleural effusion, left: pulmonary consult appreciated. holding off on repeat thoracentesis at this time fluid transudative from prior tap on last hospital stay o2 sats and pulmonary status stable (9) Sensory ataxia: long-standing dx sees Dr [place], [facility] [place] leading to severe ambulatory dysfunction PT, OT B12 level robust in 2018 VERY HIGH FALL RISK - NOT SAFE FOR DISCHARGE HOME (10) DVT prophylaxis: Heparin 5,000 units SQ Q12h attempted to call pt's son - no answer this evening Admission and Anticipated Discharge Date Admission Date: February 08, 2020 Subjective called by nursing staff early afternoon that patient was demanding discharge. when I went to his room for rounds he stated "I could just go to [place] tomorrow for dialysis; I don't need to be here". I confirmed with Dr Romano that he wanted to give another HD session to Mr Patiño on Tuesday. I voiced my concerns to Mr Patiño about his recent falls (10-12+ over last few weeks) and that he is often alone for long periods of time. Although his son lives w/ him the son works full-time outside the home. Dr Romano reported to me today that patient has showed up at dialysis in [place] covered with stool. patient denies any complaints. Review of Systems Constitutional: no fever, no chills, no fatigue and no anorexia Respiratory: no cough and no dyspnea Cardiovascular: no chest pain and no orthopnea Gastrointestinal: no abdominal pain, no nausea and no vomiting Physical Exam Constitutional: + morbidly obese; no acute distress and no altered mental status ENMT: external ear and nose normal, oropharynx normal Respiratory: Auscultation: + diminished lung sounds (left base ) and + crackles (left base - scant); no wheezes Cardiovascular: Rate/Rhythm: regular rate and regular rhythm Heart Sounds: normal S1, normal S2 and + murmur (2/6 LSB) Vessels: posterior tibial pulses present and dorsalis pedis pulses present; no JVD Gastrointestinal (Abdomen): normal bowel sounds, soft, nontender, no hepatosplenomegaly Psychiatric: Orientation: alert and oriented x 3 Results & Data Results & Data ([facility]) Vital Signs (Past 12 Hours) Vital Signs Temp Pulse Pulse Resp BP Pulse Ox 02/10/20 22:10 61 18 95 02/10/20 15:32 36.8 C 67 18 170/73 H 93 Laboratory Results Laboratory Results - last 24 hr 02/10/20 02/10/20 02/10/20 06:26 08:27 11:56 Sodium 138 Potassium 4.3 D Chloride 105 Carbon Dioxide 26 Anion Gap 7.0 BUN 55 H Creatinine 6.47 H* D Est Cr Clr Drug Dosing 14.8 Est GFR ( Amer) 9.6 Est GFR (Non-Af Amer) 8.3 BUN/Creatinine Ratio 8.5 L Glucose 123 H POC Glucose 129 H 147 H Calcium 8.5 02/10/20 02/10/20 17:09 20:47 Sodium Potassium Chloride Carbon Dioxide Anion Gap BUN Creatinine Est Cr Clr Drug Dosing Est GFR ( Amer) Est GFR (Non-Af Amer) BUN/Creatinine Ratio Glucose POC Glucose 98 121 H Calcium PG Care Time/CCT Total # of Minutes Spent Total Time Spent with Patient: Total time spent is greater than 50% in coordination of care (as documented) at patient's floor/unit and/or counseling patient: Coding Level of Care Code 27321 Subseq Hosp Care Lvl 2 Diagnoses Recurrent falls R29.6 ESRD (end stage renal disease) on dialysis N18.6; Z99.2 Depression F32.9 Hypertension I10 Diabetes mellitus E11.9 Hypothyroidism E03.9 Obstructive sleep apnea G47.33 Pleural effusion, left J90 Sensory ataxia R27.8 DVT prophylaxis Z29.9
[2020-02-11] MEDS: DOXYCYCLINE HYCLATE 100 MG CAP PO SCH ×2 (05:55→18:16)
[2020-02-11] MEDS: LEVOTHYROXINE SODIUM 125 MCG TABLET PO SCH (05:55)
[2020-02-11] MEDS ORDERED: SODIUM CHLORIDE 0.9% 1000ML 1,000 ML IV PRN (07:00)
[2020-02-11] MEDS ORDERED: HEPARIN SOD (PORCINE) 1000 UNIT/ML 10 ML VIAL IV ONE (07:00)
[2020-02-11] MEDS ORDERED: EPOETIN ALFA 10,000 UNITS/ML VIAL IV ONE (07:00)
[2020-02-11 07:45] LABS: Hematocrit (blood only) 30.5 % (42-52); Mean Corpuscular Hemoglobin 31.3 pg (25-34); Mean Corpuscular Hgb Conc 32.8 g/dL (32-36); Mean Corpuscular Volume 95.6 fL (80-100); Platelet Count 281 K/uL (130-400); RDW Coefficient of Variation 13.4 % (11.5-14.5); RDW Standard Deviation 46.7 fL (36.4-46.3); Red Blood Count 3.19 M/uL (4.7-6.1)
[2020-02-11] MEDS: carvediloL 3.125 MG TAB PO SCH ×2 (08:21→22:25)
[2020-02-11] MEDS: LOSARTAN POTASSIUM 50 MG TAB PO SCH ×3 (08:21→22:25)
[2020-02-11] MEDS: NICOTINE 21 MG/24 HR TDSY TD SCH (08:27)
[2020-02-11] MEDS: NEPHROCAPS PO SCH (08:27)
[2020-02-11] MEDS: ESCITALOPRAM OXALATE ORAL SOLN 5 MG/5 ML UDP PO SCH (08:27)
[2020-02-11] MEDS: FUROSEMIDE 80 MG TAB PO SCH ×2 (08:27→16:51)
[2020-02-11] MEDS: busPIRone 5 MG TAB PO SCH ×2 (08:27→22:25)
[2020-02-11] MEDS: CALCIUM ACETATE 667 MG CAP/TAB PO SCH ×3 (08:27→16:50)
[2020-02-11] MEDS: INSULIN ASPART 100 UNITS/ML 3 ML PEN SC SCH ×4 (08:51→22:31)
[2020-02-11] MEDS: INSULIN GLARGINE SOLOSTAR 100 UNITS/ML 3 ML PEN SC SCH ×2 (08:54→22:32)
[2020-02-11] MEDS: HEPARIN SOD 5,000 UNIT/0.5 ML VIAL SQ SCH ×2 (08:55→22:33)
--- NOTE | 2020-02-11 10:09 | Nephrology Progress Note ---
Date of Service February 11, 2020 Assessment & Plan (1) ESRD (end stage renal disease) on dialysis: * Medical nonadherence with prescribed dialysis treatments. Patient did not attend his last two outpatient treatments and then presented to [facility] w/ azotemia, 9 kg above his EDW and a worsening L pleural effusion * HD completed 02/09/20 for 4 L UF. No complications. * Despite 4 L UF w/ HD, weight is unchanged. CXR 02/10/20 shows improvement in pulmonary vascular congestion * HD today for continued UF (2) Anemia in chronic kidney disease: * Will provide MARILYN w/ HD today (3) Pleural effusion, left: * Improved following UF on HD. Breathing is clinically improved. Will monitor (4) Debilitated: * director of professional services is assessing outpatient needs * Once disposition established consider discharge in am w/ 2 hour outpatient dialysis treatment to resume outpatient TTS schedule. Call [facility] to coordinate schedule Admission and Anticipated Discharge Date Admission Date: February 08, 2020 Subjective Mr. Patiño was seen & examined in his hospital room this morning. He was breathing comfortably on RA. He voices no new medical concerns. Review of Systems Constitutional: + weakness Eyes: no problem reported Ear, Nose, Mouth, Throat: no problem reported Respiratory: no dyspnea Cardiovascular: no chest pain and no palpitations Gastrointestinal: no abdominal pain, no nausea and no diarrhea/loose stools Musculoskeletal: no back pain Integumentary: no rash Neurologic: no dizziness and no confusion Physical Exam Constitutional: + ill appearing and + disheveled Eyes: PERRL Neck: trachea midline Respiratory: normal respiratory effort Auscultation: lungs clear to auscultation bilaterally Cardiovascular: Rate/Rhythm: regular rate and regular rhythm Gastrointestinal (Abdomen): Percussion/Palpation: abdomen soft; abdomen nontender Neurologic: awake Results & Data ([facility]) Vital Signs (Past 12 Hours) Vital Signs Temp Pulse Pulse Pulse Resp BP BP 02/11/20 09:20 61 123/56 L 02/11/20 09:10 36.9 C 61 02/11/20 07:04 36.8 C 54 L 18 128/61 02/11/20 04:06 81 18 02/10/20 23:32 36.4 C L 66 18 134/72 02/10/20 22:10 61 18 Pulse Ox 02/11/20 09:20 02/11/20 09:10 02/11/20 07:04 98 02/11/20 04:06 94 02/10/20 23:32 98 02/10/20 22:10 95 Laboratory Results Laboratory Tests 02/10/20 02/11/20 06:26 07:12 WBC 7.70 Hgb 10.0 L Hct 30.5 L Plt Count 281 Sodium 138 Potassium 4.3 D Chloride 105 Carbon Dioxide 26 BUN 55 H Creatinine 6.47 H* D Glucose 123 H PG Care Time/CCT Total # of Minutes Spent Total Time Spent with Patient: Total time spent is greater than 50% in coordination of care (as documented) at patient's floor/unit and/or counseling patient: Coding Level of Care Code 15065 Subseq Hosp Care Lvl 3 Diagnoses ESRD (end stage renal disease) on dialysis N18.6; Z99.2 Anemia in chronic kidney disease N18.9; D63.1 Pleural effusion, left J90 Debilitated R53.81
--- NOTE | 2020-02-11 19:08 | Hospitalist Progress Note ---
Date of Service February 11, 2020 Assessment & Plan (1) ESRD (end stage renal disease) on dialysis: Patient with end-stage renal disease and gets dialysis Tuesday and Tuesday Patient missed 2 episodes of dialysis last week resulting in hospital admission Currently being seen by Dr. Romano. Appreciate his input Anticipate dialysis again tomorrow Further management by nephrology (2) Pleural effusion, left: This is identified on imaging. Continue with hemodialysis for ultrafiltration We'll continue to monitor No current plans for invasive treatment. (3) Recurrent falls: Patient with chronic ataxia Has power wheelchair at home At this time patient is not considered to be safe to go home Continue physical therapy and Occupational Therapy evaluations and treatment Patient may require placement Continue to follow with fall precautions (4) Tobacco abuse: Patient states that he currently smokes about 1/2 pack of cigarettes per day Discussed tobacco abstention Patient not interested at this time (5) Depression: Patient seemed stable today and was jovial and discussion but did not appear manic Continue buspirone and escitalopram (6) Molina's thyroiditis: Continue levothyroxine TSH 1.58 (7) Obstructive sleep apnea: Patient has CPAP at home Currently using hospital CPAP and appears to be tolerating well (8) Sensory ataxia: Follows with Dr. Ramirez from [facility] neurology Patient with severe ambulatory dysfunction requiring power wheelchair Continue physical therapy and Occupational Therapy Patient requesting manual wheelchair so we get home as his chairs being currently fixed We'll talk to physical therapy but most likely will not be able to use manual c hair secondary to extremity deficiencies (9) Falls: Continue physical therapy and Occupational Therapy Sensory ataxia as listed above Case management is currently involved Most likely will need half-way or rehab placement (10) Diabetes mellitus: Poorly controlled with elevated hemoglobin A1c Continue Lantus for basal needs as well as NovoLog for sliding scale Peripheral neuropathy secondary to diabetes mellitus is being poorly controlled Continue gabapentin (11) DVT prophylaxis: 5000 units subcutaneously every 12 hours Admission and Anticipated Discharge Date Admission Date: February 08, 2020 Supervising Physician Co-Signing Physician Notes Case d/w Mr. Camacho. Pt admitted for urgent HD tx after missing multiple HD sessions as outpt. Multiple factors involved in this. Pt doing better from renal standpoint at this time, however it seems unsafe for pt to be d/c'd back to home given HD compliance is not a new issue. Also reported by prior attending as concerns that pt has shown up to outpt HD covered in feces. Awaiting determination for possible placmement. Subjective Attending: Dr. Monserrat Pavon This is a 64-year-old male admitted 02/08/2020. He had missed 2 episodes of dialysis and presented with fluid overload. He had dialysis today and will most likely receive dialysis again tomorrow. Patient does report ambulatory dysfunction and states that he has a power wheelchair at home. It is currently broken and he is trying to get arrangements for to be fixed. He has requested a manual wheelchair but can currently states that he has difficulty managing because he can't use his hands or feet. Will request physical therapy and Occupational Therapy to evaluate and make recommendations. The patient denies any chest pain. He has no shortness of breath. He denies any fever, chills, sweats, rigors. He is anxious for discharge. Review of Systems Review of Systems: All systems reviewed & are unremarkable except as noted in Subjective Physical Exam Physical Exam: GENERAL : No acute distress EYES: No icterus, gaze conjugate NOSE: No evidence of epistaxis MOUTH: No lesions or candidiasis NECK: Supple LUNGS: Bibasilar crackles. Patient does have decreased breath sounds on the left side. HEART: Regular, rate controlled ABDOMEN: Soft, NT, ND, BS Present EXTREMITIES: Bilateral LE edema, pedal pulses intact and equal bilaterally NEURO: A&OX3 Results & Data Results & Data ([facility]) Vital Signs (Past 12 Hours) Vital Signs Temp Pulse Pulse Pulse Resp BP BP 02/11/20 15:59 36.9 C 68 18 139/64 02/11/20 13:45 36.9 C 55 L 140/81 02/11/20 13:00 53 L 131/65 02/11/20 12:40 55 L 132/75 02/11/20 12:20 55 L 125/66 02/11/20 12:00 54 L 121/60 02/11/20 11:40 56 L 116/56 L 02/11/20 11:20 52 L 100/63 02/11/20 11:00 53 L 113/54 L 02/11/20 10:40 54 L 120/58 L 02/11/20 10:20 56 L 128/58 L 02/11/20 10:00 56 L 130/60 02/11/20 09:40 56 L 130/81 02/11/20 09:20 61 123/56 L 02/11/20 09:10 36.9 C 61 02/11/20 07:04 36.8 C 54 L 18 128/61 Pulse Ox 02/11/20 15:59 94 02/11/20 13:45 02/11/20 13:00 02/11/20 12:40 02/11/20 12:20 02/11/20 12:00 02/11/20 11:40 02/11/20 11:20 02/11/20 11:00 02/11/20 10:40 02/11/20 10:20 02/11/20 10:00 02/11/20 09:40 02/11/20 09:20 02/11/20 09:10 02/11/20 07:04 98 Laboratory Results 02/11/20 07:12 02/10/20 06:26 Diagnostic Findings No new diagnostic imaging today. Chest x-ray from yesterday shows left pleural effusion and fluid overload PG Care Time/CCT Total # of Minutes Spent Total Time Spent with Patient: Total time spent is greater than 50% in coordination of care (as documented) at patient's floor/unit and/or counseling patient: 25 minutes Coding Level of Care Code 25343 Subseq Hosp Care Lvl 2 Diagnoses ESRD (end stage renal disease) on dialysis N18.6; Z99.2 Pleural effusion, left J90 Recurrent falls R29.6 Tobacco abuse Z72.0 Depression F32.9 Molina's thyroiditis E06.3 Obstructive sleep apnea G47.33 Sensory ataxia R27.8 Falls W19.XXXA Diabetes mellitus E11.9 DVT prophylaxis Z29.9 Time Spent (min) 25
[2020-02-11] MEDS: GABAPENTIN 300 MG CAP PO SCH (22:24)
[2020-02-11] MEDS: ASPIRIN 81 MG ECTAB PO SCH (22:25)
[2020-02-11] MEDS: amLODIPine BESYLATE 5 MG TAB PO SCH (22:25)
[2020-02-12] MEDS: DOXYCYCLINE HYCLATE 100 MG CAP PO SCH (05:46)
[2020-02-12] MEDS: LEVOTHYROXINE SODIUM 125 MCG TABLET PO SCH (05:46)
[2020-02-12] MEDS: INSULIN GLARGINE SOLOSTAR 100 UNITS/ML 3 ML PEN SC SCH (09:26)
[2020-02-12] MEDS: busPIRone 5 MG TAB PO SCH (09:27)
[2020-02-12] MEDS: INSULIN ASPART 100 UNITS/ML 3 ML PEN SC SCH ×2 (09:27→13:08)
[2020-02-12] MEDS: ESCITALOPRAM OXALATE ORAL SOLN 5 MG/5 ML UDP PO SCH (09:28)
[2020-02-12] MEDS: NEPHROCAPS PO SCH (09:28)
[2020-02-12] MEDS: NICOTINE 21 MG/24 HR TDSY TD SCH (09:28)
[2020-02-12] MEDS: CALCIUM ACETATE 667 MG CAP/TAB PO SCH ×2 (09:28→13:02)
[2020-02-12] MEDS: carvediloL 3.125 MG TAB PO SCH (09:29)
[2020-02-12] MEDS: LOSARTAN POTASSIUM 50 MG TAB PO SCH (09:29)
[2020-02-12] MEDS: FUROSEMIDE 80 MG TAB PO SCH (09:29)
[2020-02-12] MEDS: HEPARIN SOD 5,000 UNIT/0.5 ML VIAL SQ SCH (09:36)
--- NOTE | 2020-02-12 09:42 | Nephrology Progress Note ---
Date of Service February 12, 2020 Assessment & Plan (1) ESRD (end stage renal disease) on dialysis: * Medical nonadherence with prescribed dialysis treatments. Patient did not attend his last two outpatient treatments and then presented to [facility] w/ azotemia, 9 kg above his EDW and a worsening L pleural effusion * HD completed 02/11/20 for 3.8 L UF. No complications. Weight improved to 117 kg * CXR 02/10/20 shows improvement in pulmonary vascular congestion * Once disposition established, consider discharge this am w/ 2 hour outpatient dialysis treatment to resume outpatient TTS schedule. Call [facility] to coordinate schedule * If patient remains hospitalized tomorrow, will provide inpatient HD treatment (2) Anemia in chronic kidney disease: * Hgb trending up w/ MARILYN therapy (3) Pleural effusion, left: * Improved following UF on HD. Breathing is clinically improved. Will monitor (4) Debilitated: * nutrition services worker is assessing outpatient needs Admission and Anticipated Discharge Date Admission Date: February 08, 2020 Subjective Mr. Patiño was seen & examined in his hospital room this morning. He was dialyzed yesterday for 4 hours w/ 3.6 L UF. There were no complications. Mr. Patiño is now breathing comfortably on RA. His weight has improved to 117kg. Review of Systems Constitutional: + weakness Eyes: no problem reported Ear, Nose, Mouth, Throat: no problem reported Respiratory: no dyspnea Cardiovascular: no chest pain and no palpitations Gastrointestinal: no abdominal pain, no nausea and no diarrhea/loose stools Musculoskeletal: no back pain Integumentary: no rash Neurologic: no dizziness and no confusion Physical Exam Constitutional: not in distress Eyes: PERRL Neck: trachea midline Respiratory: normal respiratory effort Auscultation: lungs clear to auscultation bilaterally Cardiovascular: Rate/Rhythm: regular rate and regular rhythm Gastrointestinal (Abdomen): Percussion/Palpation: abdomen soft; abdomen nontender Neurologic: awake Results & Data ([facility]) Vital Signs (Past 12 Hours) Vital Signs Temp Pulse Pulse Resp BP Pulse Ox 02/12/20 06:52 36.5 C 60 19 104/57 L 93 02/12/20 03:29 72 16 95 02/12/20 00:00 37 C 64 20 140/67 97 02/11/20 23:42 64 20 96 02/11/20 22:19 65 173/72 H PG Care Time/CCT Total # of Minutes Spent Total Time Spent with Patient: Total time spent is greater than 50% in coordination of care (as documented) at patient's floor/unit and/or counseling patient: Coding Level of Care Code 67332 Subseq Hosp Care Lvl 3 Diagnoses ESRD (end stage renal disease) on dialysis N18.6; Z99.2 Anemia in chronic kidney disease N18.9; D63.1 Pleural effusion, left J90 Debilitated R53.81
[2020-02-12 10:07] LABS: BUN Creatinine Ratio 6.3 (10-20); Calcium 9.4 mg/dl (8.5-10.1); Creatinine Clr Calc Pharmacy 14.8 ml/min; Est GFR (African American) 9.8; Est GFR (Non-African American) 8.4; Potassium 4.3 mmol/L (3.5-5.1)
[2020-02-12] MEDS: HEPARIN SOD (PORCINE) 1000 UNIT/ML 10 ML VIAL IV SCH ×2 (13:22→13:23)
--- NOTE | 2020-02-12 15:10 | Discharge Summary ---
Date of Service February 12, 2020 Admission HPI Per Admitting Provider 64yo M coming in with falls and missing dialysis. The patient reports he has been too tired to make it too dialysis recently. He normally goes on Tuesday//Tuesday, but didn't go either Tuesday or . He is overall weak and just doesn't feel well enough to go. No fevers at home. He notes that in the last day he has fallen twice. Discharge Data Allergies Allergy/AdvReac Type Severity Reaction Status Date / Time lactose Allergy Intermediate Gastrointestinal Verified 02/08/20 15:02 Upset Consultations 02/08/20 15:36 ED Decision to Admit Stat 02/08/20 18:01 Consult Nephrology Routine Consult Pulmonology Routine Ordered Studies 02/08/20 13:11 CT abd pelvis wo con Stat CT cervical spine wo con Stat CT head/brain wo con Stat 02/09/20 18:12 US point of care ultrasound Urgent Hospital Course (1) ESRD (end stage renal disease) on dialysis: Patient with end-stage renal disease and gets dialysis Tuesday and Tuesday Patient missed 2 episodes of dialysis last week resulting in hospital admission Currently being seen by Dr. Romano. Appreciate his input Anticipate dialysis again tomorrow Further management by nephrology (2) Pleural effusion, left: This is identified on imaging. Continue with hemodialysis for ultrafiltration We'll continue to monitor No current plans for invasive treatment. (3) Recurrent falls: Patient with chronic ataxia Has power wheelchair at home At this time patient is not considered to be safe to go home Continue physical therapy and Occupational Therapy evaluations and treatment Patient may require placement Continue to follow with fall precautions (4) Tobacco abuse: Patient states that he currently smokes about 1/2 pack of cigarettes per day Discussed tobacco abstention Patient not interested at this time (5) Depression: Patient seemed stable today and was jovial and discussion but did not appear manic Continue buspirone and escitalopram (6) Molina's thyroiditis: Continue levothyroxine TSH 1.58 (7) Obstructive sleep apnea: Patient has CPAP at home Currently using hospital CPAP and appears to be tolerating well (8) Sensory ataxia: Follows with Dr. Ramirez from [facility] neurology Patient with severe ambulatory dysfunction requiring power wheelchair Continue physical therapy and Occupational Therapy Patient requesting manual wheelchair so we get home as his chairs being currently fixed We'll talk to physical therapy but most likely will not be able to use manual chair secondary to extremity deficiencies (9) Falls: Continue physical therapy and Occupational Therapy Sensory ataxia as listed above Case management is currently involved Most likely will need custodial or rehab placement (10) Diabetes mellitus: Poorly controlled with elevated hemoglobin A1c Continue Lantus for basal needs as well as NovoLog for sliding scale Peripheral neuropathy secondary to diabetes mellitus is being poorly controlled Continue gabapentin (11) DVT prophylaxis: 5000 units subcutaneously every 12 hours Discharge Plan Discharge Items Patient Disposition: Home - Home Health Services Reason For Visit: MISSED DIALYSIS FALLS Discharge Diagnosis: Missed dialysis/ falls Activity: Resume your previous activity Non-emergency contact: Primary Care Provider Call non-emergency contact if: you have any medication questions Follow-up/Referrals: Anaid Morgan CRNP [Primary Care Provider] - 02/18/20 1:00 pm Diet: Carb Consistent or DM2, Dialysis Renal and Heart Healthy Addtl Attending Provider Instructions: You have been hospitalized for an acute medical problem. During your stay at [facility], we have made an effort to correct the problem that brought you to the hospital while keeping you as comfortable as possible. Medications were used to bring your condition under control and your discharge instructions will include directions for any medications you should take after leaving the hospital. Please make sure you see your Primary Care Provider as part of your follow up plan. Ok to resume Hemodilysis on regular schedule: , Tuesday Followup with PCP in 1-2 week Pending Studies at Discharge: No Stand-Alone Forms: [facility], Smoking Cessation Medications and DC Order Prescriptions: New doxycycline hyclate 100 mg Capsule 100 mg PO 0600,1900 Qty: 6 RF: 0 Continued (DME) Power Wheelchair Device See Rx Instructions .ROUTE .MEDSUPPLY Qty: 1 RF: 0 carvedilol 3.125 mg tablet 3.125 mg PO BID Qty: 60 RF: 5 gabapentin 100 mg capsule 300 mg PO HS RF: 0 escitalopram oxalate 5 mg tablet 5 mg PO QAM RF: 0 losartan 50 mg tablet 50 mg PO DAILY RF: 0 (DME) FreeStyle Virgil 14 Day Sensor kit See Dose Instructions .ROUTE .MEDSUPPLY Qty: 6 RF: 3 (DME) pen needle, diabetic [BD Ultra-Fine Micro Pen Needle] 32 gauge x 1/4" needle See Dose Instructions .ROUTE .MEDSUPPLY Qty: 100 RF: 3 Tresiba FlexTouch U-100 100 unit/mL (3 mL) insulin pen 10 units SQ DAILY RF: 0 calcium acetate(phosphat bind) 667 mg Tablet 2,001 mg PO TIDM RF: 0 calcium carbonate [Calcium 500] 500 mg calcium (1,250 mg) Tablet 500 mg PO TUTHSA RF: 0 furosemide [Lasix] 80 mg Tablet 80 mg PO BID RF: 0 ergocalciferol (vitamin D2) [Vitamin D2] 1,250 mcg (50,000 unit) Capsule 1,250 mcg PO WK RF: 0 ProRenal QD 400-500 mcg-unit Capsule 1 cap PO QDD RF: 0 levothyroxine 125 mcg tablet 125 mcg PO DAILYBB RF: 0 nicotine [Nicoderm CQ] 21 mg/24 hr Patch 24 Hour 21 mg transdermal QAM 30 Days RF: 0 buspirone 10 mg Tablet 10 mg PO BID RF: 0 nitroglycerin 0.4 mg Tablet, Sublingual See Rx Instructions .ROUTE .COMPLEX PRN (Reason: Chest Pain) RF: 0 aspirin 81 mg Tablet,Chewable 81 mg PO HS RF: 0 amlodipine 10 mg tablet 10 mg PO HS RF: 0 Novolin N Flexpen 100 unit/mL (3 mL) Insulin Pen 0 unit subcut .SLIDING SCALE RF: 0 Discharge Orders: Discharge Order (Routine); Ordered 02/12/20 Ordered By: Van Barriga/Other Patient Handouts: ED Hemodialysis Admission Data Admit Date/Time: 02/08/20 16:22 Attending Provider: Van Crowley Admit Provider: Girma Ugalde Primary Care Provider: Anaid Morgan Other Providers: Girma Ugalde ; Audi Francis ; Bossman Whitting[place] ; [place] Other Interventions: Discharge Summary Assessment (RN) Last Done: 02/12/20 12:55 Coding Diagnoses ESRD (end stage renal disease) on dialysis N18.6; Z99.2 Pleural effusion, left J90 Recurrent falls R29.6 Tobacco abuse Z72.0 Depression F32.9 Molina's thyroiditis E06.3 Obstructive sleep apnea G47.33 Sensory ataxia R27.8 Falls W19.XXXA Diabetes mellitus E11.9 DVT prophylaxis Z29.9
[2020-02-13] MEDS ORDERED: HEPARIN SOD (PORCINE) 1000 UNIT/ML 10 ML VIAL IV SCH (07:00)
[2020-02-13] MEDS ORDERED: HEPARIN SOD (PORCINE) 1000 UNIT/ML 10 ML VIAL IV ONE (07:00)
[2020-02-13] MEDS ORDERED: SODIUM CHLORIDE 0.9% 1000ML 1,000 ML IV PRN (07:00)
[2020-02-13] MEDS ORDERED: EPOETIN ALFA 10,000 UNITS/ML VIAL IV SCH (07:00)
== END 2020-02-12 17:43 | disposition home health service (06) ==
LOC: ED 12:27 → SUATTDRO 16:22 → 3N 16:22 → INTOOBSV 16:22 → 3N 17:37

== ENCOUNTER 2020-03-24 19:06 | Inpatient (IN) ==
[2020-03-24] MEDS ORDERED: BACITRACIN OINT 15 GM TUBE EXT ONE (20:22)
[2020-03-24] MEDS ORDERED: NICOTINE 14 MG/24 HR PATCH TD STA (20:43)
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
[2020-03-24] MEDS ORDERED: PIPERACILL/TAZOBAC CONSULT ACTIVE PRN (22:04)
[2020-03-24 22:08] LABS: Basophils # (auto) 0.03 K/uL (0-0.2); Basophils % (auto) 0.2 %; Eosinophils # (auto) 0.03 K/uL (0-0.5); Eosinophils % (auto) 0.2 %; Hemoglobin 11.3 g/dL (14.0-18.0); Immature Granulocytes # (auto) 0.05 K/uL (0.00-0.02); Immature Granulocytes % (auto) 0.3 %; Lymphocytes # (auto) 1.78 K/uL (1.2-3.4); Lymphocytes % (auto) 9.2 %; Mean Corpuscular Hemoglobin 31.9 pg (25-34); Mean Corpuscular Hgb Conc 33.2 g/dL (32-36); Mean Platelet Volume 10.5 fL (7.4-10.4); Monocytes # (auto) 1.05 K/uL (0.11-0.59); Monocytes % (auto) 5.4 %; Neutrophils # (auto) 16.45 K/uL (1.4-6.5); Neutrophils % (auto) 84.7 %; Platelet Count 279 K/uL (130-400); RDW Coefficient of Variation 13.6 % (11.5-14.5); RDW Standard Deviation 47.2 fL (36.4-46.3); Red Blood Count 3.54 M/uL (4.7-6.1); White Blood Count 19.39 K/uL (4.8-10.8)
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
[2020-03-24 22:46] LABS: Albumin Globulin Ratio 0.5 (0.9-2); Albumin Level 2.8 gm/dl (3.4-5.0); BUN Creatinine Ratio 8.7 (10-20); Bilirubin,Total 0.5 mg/dl (0.2-1); Calcium 9.6 mg/dl (8.5-10.1); Est GFR (Non-African American) 5.2; Globulin 5.4 gm/dl (2.5-4.0); Total Protein 8.2 gm/dl (6.4-8.2)
[2020-03-24 23:05] LABS: Beta-Hydroxybutyrate 1.12 mg/dl (0.2-2.81)
[2020-03-24] MEDS ORDERED: PIPERACILLIN/TAZOBACTAM 3.375 GM in DEXTROSE 5% 100 ML IV STA (23:23)
[2020-03-25] MEDS ORDERED: GLUCOSE 40% GEL 15 GM TUBE PO PRN (00:22)
[2020-03-25] MEDS ORDERED: DEXTROSE 50% 50 ML SYRINGE IV PRN (00:22)
[2020-03-25] MEDS ORDERED: GLUCOSE 10 TABS/TUBE PO PRN (00:22)
[2020-03-25] MEDS ORDERED: ONDANSETRON INJ 2 MG/ML 2 ML VIAL IV PRN (00:22)
[2020-03-25] MEDS ORDERED: GLUCAGON FOR INJ 1 MG VIAL SQ PRN (00:22)
[2020-03-25] MEDS ORDERED: CARBOHYDRATES FOR HYPOGLYCEMIA PO PRN (00:22)
[2020-03-25] MEDS: HEPARIN SOD 5,000 UNIT/0.5 ML VIAL SQ SCH ×4 (01:05→20:27)
[2020-03-25] MEDS ORDERED: Nursing to Pharmacy Communication SCH ×2 (02:45→13:30)
[2020-03-25] MEDS: ACETAMINOPHEN 500 MG TAB PO PRN (04:29)
[2020-03-25 06:49] LABS: Basophils # (auto) 0.03 K/uL (0-0.2); Basophils % (auto) 0.2 %; Eosinophils # (auto) 0.05 K/uL (0-0.5); Eosinophils % (auto) 0.3 %; Hematocrit (blood only) 33.1 % (42-52); Hemoglobin 10.9 g/dL (14.0-18.0); Immature Granulocytes # (auto) 0.06 K/uL (0.00-0.02); Immature Granulocytes % (auto) 0.3 %; Lymphocytes # (auto) 1.02 K/uL (1.2-3.4); Lymphocytes % (auto) 5.8 %; Mean Corpuscular Hemoglobin 31.8 pg (25-34); Mean Corpuscular Hgb Conc 32.9 g/dL (32-36); Mean Corpuscular Volume 96.5 fL (80-100); Mean Platelet Volume 10.4 fL (7.4-10.4); Monocytes # (auto) 1.13 K/uL (0.11-0.59); Monocytes % (auto) 6.5 %; Neutrophils # (auto) 15.19 K/uL (1.4-6.5); Neutrophils % (auto) 86.9 %; Platelet Count 254 K/uL (130-400); RDW Coefficient of Variation 13.6 % (11.5-14.5); RDW Standard Deviation 47.3 fL (36.4-46.3); Red Blood Count 3.43 M/uL (4.7-6.1); White Blood Count 17.48 K/uL (4.8-10.8)
[2020-03-25] MEDS ORDERED: PHARMACY GLYCEMIC MGMT CONSULT PRN (06:49)
[2020-03-25] MEDS: DAPTOmycin 350 MG in SYRINGE 0 ML IV SCH (07:29)
[2020-03-25] MEDS ORDERED: INSULIN GLARGINE SOLOSTAR 100 UNITS/ML 3 ML PEN SC ONE (07:30)
[2020-03-25] MEDS: PIPERACILLIN/TAZOBACTAM 3.375 GM in DEXTROSE 5% 100 ML IV SCH ×2 (07:30→11:07)
[2020-03-25 07:31] LABS: Estimated Average Glucose 220 mg/dl; Hemoglobin A1C 9.3 % (4.5-5.6)
[2020-03-25 07:43] LABS: Albumin Globulin Ratio 0.5 (0.9-2); Albumin Level 2.6 gm/dl (3.4-5.0); BUN Creatinine Ratio 8.6 (10-20); Bilirubin,Total 0.6 mg/dl (0.2-1); Calcium 9.4 mg/dl (8.5-10.1); Creatinine Clr Calc Pharmacy 9.6 ml/min; Est GFR (African American) 5.8; Globulin 5.1 gm/dl (2.5-4.0); Magnesium 2.5 mg/dl (1.8-2.4); Phosphorus 5.1 mg/dl (2.5-4.9); Potassium 5.2 mmol/L (3.5-5.1); Total Protein 7.7 gm/dl (6.4-8.2)
[2020-03-25] MEDS ORDERED: METOPROLOL TARTRATE 1 MG/ML VIAL IV PRN (08:00)
[2020-03-25] MEDS: INSULIN ASPART 100 UNITS/ML 3 ML PEN SC SCH ×4 (08:35→21:31)
[2020-03-25] MEDS ORDERED: INSULIN ASPART 100 UNITS/ML 3 ML PEN SC SCH (12:00)
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
[2020-03-25] MEDS ORDERED: PHARMACY GLYCEMIC MGMT CONSULT STA (13:21)
[2020-03-25] MEDS: NICOTINE 21 MG/24 HR TDSY TD SCH (14:02)
[2020-03-25] MEDS: CALCIUM CARBONATE 500 MG CHEWABLE TAB PO SCH (14:13)
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
[2020-03-25] MEDS: NEPHROCAPS PO SCH (20:24)
[2020-03-25] MEDS: FUROSEMIDE 80 MG TAB PO SCH (20:24)
[2020-03-25] MEDS: CALCIUM ACETATE 667 MG CAP/TAB PO SCH (20:25)
[2020-03-25] MEDS: ASPIRIN 81 MG CHEW PO SCH (20:25)
[2020-03-25] MEDS: GABAPENTIN 300 MG CAP PO SCH (20:26)
[2020-03-25] MEDS: busPIRone 5 MG TAB PO SCH (20:26)
[2020-03-25] MEDS: amLODIPine BESYLATE 5 MG TAB PO SCH (20:26)
[2020-03-25] MEDS: carvediloL 3.125 MG TAB PO SCH (20:26)
[2020-03-25] MEDS: PIPERACILLIN/TAZOBACTAM 4.5 GM in DEXTROSE 5% 100 ML IV SCH (20:40)
[2020-03-25] MEDS ORDERED: INSULIN GLARGINE SOLOSTAR 100 UNITS/ML 3 ML PEN SC SCH (21:00)
[2020-03-26] MEDS ORDERED: INSULIN ASPART 100 UNITS/ML 3 ML PEN SC SCH
[2020-03-26] MEDS: HEPARIN SOD 5,000 UNIT/0.5 ML VIAL SQ SCH ×3 (05:47→20:19)
[2020-03-26] MEDS: LEVOTHYROXINE SODIUM 125 MCG TABLET PO SCH (05:48)
[2020-03-26 06:39] LABS: Basophils # (auto) 0.02 K/uL (0-0.2); Basophils % (auto) 0.1 %; Eosinophils # (auto) 0.11 K/uL (0-0.5); Eosinophils % (auto) 0.7 %; Hematocrit (blood only) 33.4 % (42-52); Immature Granulocytes # (auto) 0.09 K/uL (0.00-0.02); Immature Granulocytes % (auto) 0.5 %; Lymphocytes # (auto) 2.34 K/uL (1.2-3.4); Lymphocytes % (auto) 14.1 %; Mean Corpuscular Hemoglobin 31.8 pg (25-34); Mean Corpuscular Hgb Conc 32.9 g/dL (32-36); Mean Corpuscular Volume 96.5 fL (80-100); Mean Platelet Volume 10.5 fL (7.4-10.4); Monocytes # (auto) 1.53 K/uL (0.11-0.59); Monocytes % (auto) 9.2 %; Neutrophils # (auto) 12.49 K/uL (1.4-6.5); Neutrophils % (auto) 75.4 %; Platelet Count 292 K/uL (130-400); RDW Coefficient of Variation 13.6 % (11.5-14.5); RDW Standard Deviation 47.7 fL (36.4-46.3); Red Blood Count 3.46 M/uL (4.7-6.1); White Blood Count 16.58 K/uL (4.8-10.8)
[2020-03-26] MEDS: NICOTINE 21 MG/24 HR TDSY TD SCH (07:17)
[2020-03-26] MEDS: PIPERACILLIN/TAZOBACTAM 4.5 GM in DEXTROSE 5% 100 ML IV SCH ×2 (07:17→20:12)
[2020-03-26] MEDS: ESCITALOPRAM OXALATE 10 MG TAB PO SCH (07:18)
[2020-03-26] MEDS: FUROSEMIDE 80 MG TAB PO SCH ×2 (07:18→17:54)
[2020-03-26] MEDS: busPIRone 5 MG TAB PO SCH ×2 (07:19→20:16)
[2020-03-26] MEDS: carvediloL 3.125 MG TAB PO SCH ×2 (07:19→20:17)
[2020-03-26] MEDS: CALCIUM ACETATE 667 MG CAP/TAB PO SCH ×3 (07:19→17:55)
[2020-03-26] MEDS: LOSARTAN POTASSIUM 50 MG TAB PO SCH (07:19)
[2020-03-26 07:26] LABS: Albumin Globulin Ratio 0.4 (0.9-2); Albumin Level 2.4 gm/dl (3.4-5.0); BUN Creatinine Ratio 6.9 (10-20); Bilirubin,Total 0.5 mg/dl (0.2-1); Calcium 9.5 mg/dl (8.5-10.1); Creatinine Clr Calc Pharmacy 14.8 ml/min; Est GFR (African American) 9.7; Est GFR (Non-African American) 8.4; Globulin 5.4 gm/dl (2.5-4.0); Potassium 4.2 mmol/L (3.5-5.1); Total Protein 7.8 gm/dl (6.4-8.2)
[2020-03-26] MEDS: INSULIN ASPART 100 UNITS/ML 3 ML PEN SC SCH ×4 (08:31→20:18)
[2020-03-26] MEDS ORDERED: INSULIN GLARGINE SOLOSTAR 100 UNITS/ML 3 ML PEN SC SCH ×2 (09:00)
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
[2020-03-26] MEDS: COLLAGENASE OINT 30 GM TUBE EXT SCH (14:11)
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
[2020-03-26] MEDS: NEPHROCAPS PO SCH (17:52)
[2020-03-26] MEDS: ACETAMINOPHEN 500 MG TAB PO PRN (18:40)
[2020-03-26] MEDS: ASPIRIN 81 MG CHEW PO SCH (20:16)
[2020-03-26] MEDS: amLODIPine BESYLATE 5 MG TAB PO SCH (20:17)
[2020-03-26] MEDS: GABAPENTIN 300 MG CAP PO SCH (20:17)
[2020-03-27] MEDS ORDERED: INSULIN ASPART 100 UNITS/ML 3 ML PEN SC SCH
[2020-03-27 06:30] LABS: Basophils # (auto) 0.05 K/uL (0-0.2); Basophils % (auto) 0.3 %; Eosinophils # (auto) 0.33 K/uL (0-0.5); Eosinophils % (auto) 2.2 %; Hematocrit (blood only) 33.1 % (42-52); Hemoglobin 10.7 g/dL (14.0-18.0); Immature Granulocytes # (auto) 0.15 K/uL (0.00-0.02); Lymphocytes # (auto) 2.08 K/uL (1.2-3.4); Mean Corpuscular Hemoglobin 31.3 pg (25-34); Mean Corpuscular Hgb Conc 32.3 g/dL (32-36); Mean Corpuscular Volume 96.8 fL (80-100); Mean Platelet Volume 10.5 fL (7.4-10.4); Monocytes # (auto) 0.91 K/uL (0.11-0.59); Monocytes % (auto) 6.1 %; Neutrophils # (auto) 11.31 K/uL (1.4-6.5); Neutrophils % (auto) 76.4 %; Platelet Count 302 K/uL (130-400); RDW Coefficient of Variation 13.4 % (11.5-14.5); RDW Standard Deviation 47.5 fL (36.4-46.3); Red Blood Count 3.42 M/uL (4.7-6.1); White Blood Count 14.83 K/uL (4.8-10.8)
[2020-03-27] MEDS: HEPARIN SOD 5,000 UNIT/0.5 ML VIAL SQ SCH (06:34)
[2020-03-27] MEDS: LEVOTHYROXINE SODIUM 125 MCG TABLET PO SCH (06:34)
[2020-03-27] MEDS: DAPTOmycin 350 MG in SYRINGE 0 ML IV SCH (07:27)
[2020-03-27] MEDS: PIPERACILLIN/TAZOBACTAM 4.5 GM in DEXTROSE 5% 100 ML IV SCH (07:27)
[2020-03-27] MEDS: COLLAGENASE OINT 30 GM TUBE EXT SCH (07:27)
[2020-03-27] MEDS: ESCITALOPRAM OXALATE 10 MG TAB PO SCH (07:29)
[2020-03-27] MEDS: CALCIUM CARBONATE 500 MG CHEWABLE TAB PO SCH (07:29)
[2020-03-27] MEDS: FUROSEMIDE 80 MG TAB PO SCH (07:29)
[2020-03-27] MEDS: CALCIUM ACETATE 667 MG CAP/TAB PO SCH (07:30)
[2020-03-27] MEDS: LOSARTAN POTASSIUM 50 MG TAB PO SCH (07:30)
[2020-03-27] MEDS: carvediloL 3.125 MG TAB PO SCH (07:30)
[2020-03-27] MEDS: busPIRone 5 MG TAB PO SCH (07:30)
[2020-03-27 07:42] LABS: Albumin Globulin Ratio 0.4 (0.9-2); Albumin Level 2.3 gm/dl (3.4-5.0); BUN Creatinine Ratio 8.2 (10-20); Bilirubin,Total 0.5 mg/dl (0.2-1); Calcium 9.5 mg/dl (8.5-10.1); Creatinine Clr Calc Pharmacy 10.7 ml/min; Est GFR (African American) 6.7; Est GFR (Non-African American) 5.8; Globulin 5.3 gm/dl (2.5-4.0); Potassium 4.3 mmol/L (3.5-5.1); Total Protein 7.6 gm/dl (6.4-8.2)
[2020-03-27] MEDS: ACETAMINOPHEN 500 MG TAB PO PRN ×2 (08:29→14:49)
[2020-03-27] MEDS: INSULIN ASPART 100 UNITS/ML 3 ML PEN SC SCH (08:31)
[2020-03-27] MEDS ORDERED: INSULIN GLARGINE SOLOSTAR 100 UNITS/ML 3 ML PEN SC SCH (09:00)
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
[2020-03-29] MEDS ORDERED: ERGOCALCIFEROL 50,000 UNITS 1250 MCG CAP PO SCH (09:00)
== END 2020-03-27 14:45 | disposition short-term general hospital (02) | DRG 935 ==
LOC: ED 19:06 → 2N 22:04 → SUATTDRO 22:04 → 2N 23:24

== ENCOUNTER 2020-05-14 20:16 | Inpatient (IN) ==
[2020-05-14] MEDS ORDERED: ACETAMINOPHEN 325 MG TAB PO STA (20:44)
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
[2020-05-14 20:54] LABS: Hematocrit (blood only) 35.5 % (42-52); Hemoglobin 11.4 g/dL (14.0-18.0); Mean Corpuscular Hemoglobin 31.4 pg (25-34); Mean Corpuscular Hgb Conc 32.1 g/dL (32-36); Mean Corpuscular Volume 97.8 fL (80-100); Mean Platelet Volume 9.6 fL (7.4-10.4); Platelet Count 329 K/uL (130-400); RDW Coefficient of Variation 13.8 % (11.5-14.5); RDW Standard Deviation 49.1 fL (36.4-46.3); Red Blood Count 3.63 M/uL (4.7-6.1); White Blood Count 23.51 K/uL (4.8-10.8)
[2020-05-14 21:05] LABS: INR 1.5 (0.9-1.1); Partial Thromboplastin Time 27.1 Seconds (21.0-31.0); Prothrombin Time 14.3 Seconds (9.0-12.0)
[2020-05-14] MEDS ORDERED: ONDANSETRON INJ 2 MG/ML 2 ML VIAL IV STA (21:13)
[2020-05-14] MEDS ORDERED: VANCOMYCIN CONSULT ACTIVE PRN (21:22)
[2020-05-14] MEDS ORDERED: VANCOMYCIN HCL 2,500 MG in SODIUM CHLORIDE 0.9% 500 ML IV ONE (21:22)
[2020-05-14] MEDS ORDERED: cefTRIAXone SODIUM 2,000 MG/70 ML BAG IV STA (21:22)
[2020-05-14 21:23] LABS: Albumin Globulin Ratio 0.5 (0.9-2); Albumin Level 2.9 gm/dl (3.4-5.0); BUN Creatinine Ratio 7.1 (10-20); Bilirubin,Total 0.4 mg/dl (0.2-1); Calcium 9.7 mg/dl (8.5-10.1); Est GFR (African American) 7.3; Est GFR (Non-African American) 6.3; Globulin 5.5 gm/dl (2.5-4.0); Magnesium 2.4 mg/dl (1.8-2.4); Potassium 5.5 mmol/L (3.5-5.1); Total Protein 8.4 gm/dl (6.4-8.2); Troponin I 0.263 ng/ml (0-0.045)
[2020-05-14] MEDS ORDERED: DEXTROSE 50% 50 ML SYRINGE IV STA (21:24)
[2020-05-14] MEDS ORDERED: ACETAMINOPHEN 65 ML IV ONE (21:24)
[2020-05-14] MEDS ORDERED: NovoLIN-R INSULIN PER UNIT CHARGE IV STA (21:24)
[2020-05-14 21:30] LABS: Basophils # (auto) 0.05 K/uL (0-0.2); Basophils % (auto) 0.2 %; Eosinophils # (auto) 0.01 K/uL (0-0.5); Immature Granulocytes % (auto) 0.4 %; Lymphocytes # (auto) 1.68 K/uL (1.2-3.4); Lymphocytes % (auto) 7.1 %; Monocytes # (auto) 0.65 K/uL (0.11-0.59); Monocytes % (auto) 2.8 %; Neutrophils # (auto) 21.02 K/uL (1.4-6.5); Neutrophils % (auto) 89.5 %
[2020-05-14 22:08] LABS: Influenza A virus by PCR Negative (Neg); Influenza B virus by PCR Negative (Neg); RSV by PCR Negative (Neg); SARS CoV2 RNA(COVID-19) InHosp NEGATIVE (Negative)
[2020-05-14] MEDS ORDERED: SODIUM CHLORIDE 0.9% 1000ML 500 ML IV ONE (22:38)
[2020-05-14] MEDS ORDERED: SODIUM CHLORIDE 0.9% 1000ML 1,000 ML IV ONE (23:21)
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
[2020-05-15] MEDS ORDERED: CARBOHYDRATES FOR HYPOGLYCEMIA PO PRN (02:03)
[2020-05-15] MEDS ORDERED: DEXTROSE 50% 50 ML SYRINGE IV PRN (02:03)
[2020-05-15] MEDS ORDERED: GLUCOSE 10 TABS/TUBE PO PRN (02:03)
[2020-05-15] MEDS ORDERED: LACTATED RINGER'S 1,000 ML IV SCH (02:03)
[2020-05-15] MEDS ORDERED: GLUCOSE 40% GEL 15 GM TUBE PO PRN (02:03)
[2020-05-15] MEDS ORDERED: GLUCAGON FOR INJ 1 MG VIAL SQ PRN (02:03)
[2020-05-15] MEDS ORDERED: POLYETHYLENE (MIRALAX) 17 GM PACK PO PRN (02:03)
[2020-05-15] MEDS ORDERED: ONDANSETRON INJ 2 MG/ML 2 ML VIAL IV PRN (02:03)
--- OUTSIDE RECORDS SUMMARY | 2020-05-15 02:06 | External Medical Summary | Continuity of Care Document ---
:1955 Author Name Leora Roca, Provider Address Unavailable Unavailable , Care Team Providers Name Role Phone Hira Uyen MCCLELLAN Unavailable [email or web address] [email or web address]. Unavailable [email or web address] Jurgen MCCLELLAN Unavailable [email or web address] Amadou Vo M.D. Unavailable [email or web address] Brian Hope M.D. Unavailable [email or web address] Tito DO Unavailable [email or web address] Areli Roca Unavailable [email or web address] Ihsan Ramirez M.D. Unavailable [email or web address] ARELI Roca Unavailable Unavailable Unavailable Unavailable Unavailable Problems Family history of Malignant Melanoma Of The Skin (V16.8) Status: Resolved Diabetic peripheral neuropathy associate d with type 2 diabetes mellitus (250.60) (E11.42) ESRD on hemodialysis (585.6) (N18.6) Dyslipidemia (272.4) (E78.5) Diabetes mellitus type 2, uncontrolled (250.02) (E11.65) Diabetic nephropathy associated with type 2 diabetes m ellitus (250.40) (E11.21) Obstructive sleep apnea (327.23) (G47.33) Nocturnal hypoxia (327.24) (G47.34) Current smoker (305.1) (F17.200) Depression (311) (F32.9) Hypertension (401.9) (I10) Nephrotic range proteinuria (791.0) (R80.9) Uncontrolled type 2 diabetes mellitus wi th kidney complication, with long-term current use of insulin (250.42) (E11.29) Background diabetic retinopathy associat ed with type 2 diabetes mellitus (250.50) (E11.3299) 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 Chanelle Singleton Start: 08-Dec-2017 Quantity: 25 Refills: 0 NovoLIN N 100 UNIT/ML Subcutaneous Suspe nsion; Inject 100 units in the morning and at bedtime depending on sugar readings Chanelle Hope Start: 22-Dec-2015 Quantity: 100 Refills: 3 Calcitriol 0.25 MCG Oral Capsule; TAKE 1 CAPSULE Three a Wee k DO Audi Francis Start: 27-Jul-2018 Quantity: 24 Refills: 3 FLUoxetine HCl - 40 MG Oral Capsule; take 1 capsule by mouth once daily Refills: 0 Gabapentin 100 MG Oral Capsule; TAKE 3 CAPSULE Bedtime Chanelle Ramirez Start: 05-Jan-2018 Quantity: 270 Refills: 1 Furosemide 80 MG Oral Tablet; TAKE 1 TABLET BY MOUTH TWICE D AILY DO Audi Francis Start: 26-Dec-2017 Quantity: 180 Refills: 1 busPIRone HCl - 10 MG Oral Tablet; TAKE 1 TABLET BY MOUTH TW ICE DAILY Refills: 0 FreeStyle Virgil 14 Day [place] Device; USE DIRECTED VY Da Silva Start: 17-Mar-2018 Quantity: 1 Refills: 0 Ondansetron HCl - 8 MG Oral Tablet; TAKE 1 PO Q 6 HOURS PRN Quantity: 30 Refills: 0 amLODIPine Besylate 10 MG Oral Tablet; TAKE 1 TABLET D AILY FOR BLOOD PRESSURE. DO Audi Francis Start: 30-Mar-2017 Quantity: 90 Refills: 2 Carvedilol 3.125 MG Oral Tablet; TAKE 1 TABLET TWICE D AILY WITH MEALS. Chanelle Fish Start: 14-Dec-2017 Quantity: 180 Refills: 3 Aspirin 81 MG TABS; TAKE 1 TABLET DAILY. Refills: 0 Calcium TABS; TAKE 1 TABLET DAILY. Refills: 0 Tresiba FlexTouch 100 UNIT/ML Subcutaneo us Solution Pen-injector; inject 10 units daily VY Iniguez Start: 29-Jun-2018 Quantity: 1 5 x 3 ML Pen Refills: 3 BD Insulin Syr Ultrafine II 31G X 5/16" 1 ML MISC; USE DIRECTED twice DAILY WITH HUMULIN N INSULIN HiraVY Start: 01-Apr-2016 Quantity: 2 100 Unit Box Refills: 3 Levothyroxine Sodium 125 MCG Oral Tablet ; TAKE 1 TABLET DAILY ON AN EMPTY STOMACH WITH A FULL GLASS OF WATER, WAIT 30 MINUTES TO EAT HiraVY Start: 02-Aug-2016 Quantity: 90 Refills: 3 Econazole Nitrate 1 % External Cream; AP PLY AND GENTLY MASSAGE INTO AFFECTED AREA(S) TWICE DAILY. Chanelle Hope Start: 05-Apr-2016 Quantity: 2 85 GM Tube Refills: 5 Omeprazole 20 MG Oral Capsule Delayed Re lease; TAKE 1 CAPSULE BY MOUTH DAILY EVERY MORNING BEFORE BREAKFAST. VY Seaman Start: 12-Jan-2018 Quantity: 30 Refills: 5 FreeStyle Virgil 14 Day Sensor; use one sensor every 14 days HiraVY Start: 17-Mar-2018 Quantity: 2 Refills: 5 Procedures Procedures not documented Immunizations Pneumococcal polysaccharide vaccine, 23 valent Comments:Declined 05/28/2011 Pneumococcal polysaccharide vaccine, 23 valent Comments:declined 2013 Influenza Comments:Declined Influenza Comments:declined Influenza On: 02-Apr-2016 Influenza Comments:declined Pneumococcal polysaccharide vaccine, 23 valent Comments:07/20/2015-declined Family History natural son Family history of Malignant Melanoma Of The Skin (V16.8) Sta tus: Resolved Mother Family history of Colon Cancer (V16.0) Status: Active Family history of colon cancer (V16.0) (Z80.0) Status: Activ e Father Family history of inflammatory bowel disease (V18.59) (Z83.7 9) Status: Active Unknown Family Member Family history of Diabetes Mellitus (V18.0) Status: Active Comments: Family History Social History - Smoking Status Smoker Plan of Treatment Planned Encounters Appointment; Reid Vo M.D. Start: 19-Feb-2019 13:15 Requ est Planned Observations Planned Goals not documented Results No Known Results Results not documented Encounters Appointment; Audi Francis DO 19-Sep-2018 14:15 Encounter Diagnosis: Problem not documented Appointment; Reid Vo M.D. 16-Aug-2018 13:30 Encounter Diagnosis: Problem not documented Appointment; Audi Francis DO 27-Jul-2018 13:35 Encounter Diagnosis: Problem not documented Appointment; Raimundo Ramirez M.D. 22-Jun-2018 13:45 Encounter Diagnosis: Problem not documented Appointment; Uyen Iniguez CRNP 19-Jun-2018 14:30 Encounter Diagnosis: Problem not documented Appointment; Audi Francis DO 15-Jun-2018 13:35 Encounter Diagnosis: Problem not documented Appointment; Audi Francis DO 18-May-2018 12:30 Encounter Diagnosis: Problem not documented Appointment; Reid Vo M.D. 19-Feb-2019 13:15 Encounter Diagnosis: Problem not documented
[2020-05-15] MEDS ORDERED: CEFEPIME 1,000 MG in SYRINGE 0 ML IV ONE (03:00)
[2020-05-15] MEDS: LEVOTHYROXINE SODIUM 125 MCG TABLET PO SCH (05:38)
[2020-05-15] MEDS: HEPARIN SOD 5,000 UNIT/0.5 ML VIAL SQ SCH ×3 (05:45→20:50)
[2020-05-15 06:39] LABS: Basophils # (auto) 0.05 K/uL (0-0.2); Basophils % (auto) 0.2 %; Eosinophils # (auto) 0.01 K/uL (0-0.5); Hematocrit (blood only) 34.9 % (42-52); Hemoglobin 11.1 g/dL (14.0-18.0); Immature Granulocytes % (auto) 0.4 %; Lymphocytes # (auto) 2.14 K/uL (1.2-3.4); Lymphocytes % (auto) 9.5 %; Mean Corpuscular Hemoglobin 31.2 pg (25-34); Mean Corpuscular Hgb Conc 31.8 g/dL (32-36); Mean Platelet Volume 9.3 fL (7.4-10.4); Monocytes # (auto) 0.55 K/uL (0.11-0.59); Monocytes % (auto) 2.4 %; Neutrophils # (auto) 19.64 K/uL (1.4-6.5); Neutrophils % (auto) 87.5 %; Platelet Count 278 K/uL (130-400); RDW Coefficient of Variation 13.8 % (11.5-14.5); RDW Standard Deviation 49.9 fL (36.4-46.3); Red Blood Count 3.56 M/uL (4.7-6.1); White Blood Count 22.49 K/uL (4.8-10.8)
--- NOTE | 2020-05-15 07:03 | CT Scan Report ---
CT OF THE HEAD WITHOUT CONTRAST CLINICAL HISTORY: Altered mental status. Evaluate for bleed. COMPARISON STUDY: Head CT February 08, 2020. CT DOSE: 1035.81 mGycm TECHNIQUE: Helical axial images of the head were obtained without IV contrast. Automated exposure con trol was utilized for the study. A dose lowering technique was utilized adhering to the principles o f ALARA. FINDINGS: No acute intracranial hemorrhage, midline shift or mass effect is present. Hyperdensity wit hin the brainstem is likely artifactual. White matter hypodensities are unchanged and suggest small v essel disease. The ventricular system is unremarkable. The basal cisterns are patent. No extra-axial collections are present. There are no findings to suggest acute dural sinus thrombosis or acute kaushik torial infarct. No significant calvarial abnormalities are present. Visualized portions of the sinuse s and mastoid air cells are clear. IMPRESSION: No acute intracranial findings. No significant change since previous head CT. ACT 112: Negative or not required by law. Electronically signed by: Quentin Morales M.D. 05/15/2020 7:02 AM
--- NOTE | 2020-05-15 07:03 | Billing Data ---
Date of Service May 14, 2020 Coding Level of Care Code 96154 Initial Inpt Care Lvl 3
--- NOTE | 2020-05-15 07:14 | XRay Report ---
XR chest 1V portable CLINICAL HISTORY: Sepsis. COMPARISON STUDY: Chest radiograph February 10, 2020. FINDINGS: The patient is rotated. There is no pneumothorax. Persistent small left pleural effusion wi th left basilar opacity is noted. This is been shown on multiple prior exams. There is pulmonary vasc ular congestion with suspected mild pulmonary edema. There is no right pleural effusion. No pneumotho rax is present. IMPRESSION: 1. Persistent small left pleural effusion with left basilar opacity and evidence for left lower lobe volume loss. This may reflect atelectasis or consolidation. Radiographic follow-up is recommended. 2. Otherwise, interstitial thickening within the lungs. This favors pulmonary vascular congestion. An infectious process could appear similar. ACT 112: Negative or not required by law. Electronically signed by: Quentin Morales M.D. 05/15/2020 7:12 AM
[2020-05-15 07:42] LABS: BUN Creatinine Ratio 7.7 (10-20); Calcium 9.6 mg/dl (8.5-10.1); Creatinine Clr Calc Pharmacy 10.9 ml/min; Est GFR (African American) 6.8; Est GFR (Non-African American) 5.9; Potassium 4.9 mmol/L (3.5-5.1); Thyroid Stimulating Hormone 0.493 uIu/ml (0.300-4.500)
[2020-05-15 07:59] LABS: Estimated Average Glucose 146 mg/dl; Hemoglobin A1C 6.7 % (4.5-5.6)
[2020-05-15] MEDS: ACETAMINOPHEN 325 MG TAB PO PRN (07:59)
[2020-05-15] MEDS: ESCITALOPRAM OXALATE 10 MG TAB PO SCH (08:00)
[2020-05-15] MEDS: carvediloL 3.125 MG TAB PO SCH ×2 (08:01→20:10)
[2020-05-15] MEDS: busPIRone 5 MG TAB PO SCH ×2 (08:01→20:11)
[2020-05-15] MEDS: INSULIN GLARGINE SOLOSTAR 100 UNITS/ML 3 ML PEN SC SCH ×2 (08:05→20:48)
[2020-05-15] MEDS: INSULIN ASPART 100 UNITS/ML 3 ML PEN SC SCH ×4 (08:05→20:48)
--- NOTE | 2020-05-15 09:13 | Electrocardiogram Report ---
Test Reason : Blood Pressure : / mmHG Vent. Rate : 099 BPM Atrial Rate : 099 BPM P-R Int : 218 ms QRS Dur : 092 ms QT Int : 358 ms P-R-T Axes : 082 -69 074 degrees QTc Int : 459 ms Sinus rhythm with 1st degree A-V block with occasional Premature ventricular complexes Pulmonary disease pattern Left anterior fascicular block Septal infarct (cited on or before 08-FEB-2020) Poor R wave progression, consider anterior NH vs. lead placement vs. LVH Abnormal ECG When compared with ECG of 08-FEB-2020 13:31, Left anterior fascicular block is now Present Confirmed by Juan Jung ([id number]) on 05/15/2020 9:13:07 AM Referred By: Anaid Morgan Confirmed By:Juan Jung
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
[2020-05-15] MEDS ORDERED: MICONAZOLE NITRATE POWDER 43 GM EXT PRN (12:16)
--- NOTE | 2020-05-15 13:19 | Pharmacy Report ---
Pharmacy Abx Dose Short Note - Date of Service May 15, 2020 - Assessment & Plan Assessment 64 year old M ordered empiric vancomycin and cefepime for sepsis suspected to be secondary to RLE cellulitis vs. LLL pneumonia * ESRD on HD - last HD session was Tuesday. Ordered to be dialyzed today. * MRSA swab is negative, however it is reasonable to continue vanco at this time for coverage of skin source and GPC growing in 1/ BC. Plan Vancomycin * Dose of 2500 mg IV (20 mg/kg) given 05/14 @2230 * Random level drawn this morning was 25.7 mcg/mL * Patient to have HD this afternoon. Anticipate vanco level to decrease to ~18 mcg/mL after HD. * I will hold off on ordering further vanco at this time. A random level will be ordered for 2/12 AM (uncertain if patient has any residual kidney function). Subsequent random levels to be drawn prior to HD on HD days. Pharmacy will continue to follow and will adjust dose/frequency as necessary. Thank you.
--- NOTE | 2020-05-15 14:29 | XRay Report ---
RIGHT FOOT 2 VIEWS CLINICAL HISTORY: Right foot wounds. FINDINGS: AP and lateral views of the right foot are obtained. No prior studies are available for [facility] at the time of dictation. The skeletal structures are osteopenic. No fracture is seen. There is no bony erosion or periostitis. A large dorsal calcaneal enthesophyte is observed. Arthritic jacobs e is seen at the tibiotalar articulation. Moderate osteoarthritic change is seen at the first metatar sophalangeal joint. Degenerative change is also seen throughout the midfoot. There is mild diffuse so ft tissue edema throughout the right foot. A large ulceration is suggested in the heel. IMPRESSION: 1. Diffuse soft tissue swelling with no acute bony abnormality identified. 2. Osteopenia with degenerative change and a large dorsal heel spur as above. 3. A large ulceration is suggested in the heel. Electronically signed by: Rodrigo Cason M.D. 05/15/2020 2:28 PM
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
[2020-05-15] MEDS: ASPIRIN 81 MG ECTAB PO SCH (20:10)
[2020-05-15] MEDS: GABAPENTIN 300 MG CAP PO SCH (20:10)
[2020-05-15] MEDS ORDERED: METOPROLOL TARTRATE 1 MG/ML VIAL IV STA (21:00)
[2020-05-15] MEDS ORDERED: SODIUM CHLORIDE 0.9% 1000ML 250 ML IV ONE (21:04)
[2020-05-15 21:09] LABS: Hepatitis B Surface Ab Quant 511.71 mIU/mL (>or=10mIU/mL Immune); Hepatitis B Surface Antibody Immune
[2020-05-15 21:20] LABS: Hepatitis B Surf Ag Rflx Conf Neg (Neg)
[2020-05-16] MEDS: CEFEPIME 500 MG in SYRINGE 0 ML IV SCH (04:04)
[2020-05-16] MEDS: LEVOTHYROXINE SODIUM 125 MCG TABLET PO SCH (05:53)
[2020-05-16] MEDS: HEPARIN SOD 5,000 UNIT/0.5 ML VIAL SQ SCH ×3 (05:59→21:09)
[2020-05-16 07:07] LABS: Basophils # (auto) 0.04 K/uL (0-0.2); Basophils % (auto) 0.3 %; Eosinophils # (auto) 0.14 K/uL (0-0.5); Eosinophils % (auto) 1.1 %; Hematocrit (blood only) 30.8 % (42-52); Hemoglobin 9.6 g/dL (14.0-18.0); Immature Granulocytes # (auto) 0.04 K/uL (0.00-0.02); Immature Granulocytes % (auto) 0.3 %; Lymphocytes # (auto) 2.76 K/uL (1.2-3.4); Lymphocytes % (auto) 22.1 %; Mean Corpuscular Hemoglobin 30.7 pg (25-34); Mean Corpuscular Hgb Conc 31.2 g/dL (32-36); Mean Corpuscular Volume 98.4 fL (80-100); Mean Platelet Volume 9.9 fL (7.4-10.4); Monocytes # (auto) 0.68 K/uL (0.11-0.59); Monocytes % (auto) 5.4 %; Neutrophils # (auto) 8.84 K/uL (1.4-6.5); Neutrophils % (auto) 70.8 %; Platelet Count 251 K/uL (130-400); RDW Coefficient of Variation 13.9 % (11.5-14.5); RDW Standard Deviation 49.3 fL (36.4-46.3); Red Blood Count 3.13 M/uL (4.7-6.1)
[2020-05-16 07:30] LABS: BUN Creatinine Ratio 6.7 (10-20); Calcium 8.9 mg/dl (8.5-10.1); Creatinine Clr Calc Pharmacy 15.3 ml/min; Est GFR (African American) 10.4; Est GFR (Non-African American) 8.9; Potassium 4.3 mmol/L (3.5-5.1)
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
[2020-05-16] MEDS: carvediloL 3.125 MG TAB PO SCH ×2 (08:59→19:57)
[2020-05-16] MEDS: busPIRone 5 MG TAB PO SCH ×2 (08:59→19:56)
[2020-05-16] MEDS: ESCITALOPRAM OXALATE 10 MG TAB PO SCH (08:59)
[2020-05-16] MEDS: INSULIN GLARGINE SOLOSTAR 100 UNITS/ML 3 ML PEN SC SCH ×2 (09:02→20:01)
[2020-05-16] MEDS: INSULIN ASPART 100 UNITS/ML 3 ML PEN SC SCH ×4 (09:03→20:00)
--- NOTE | 2020-05-16 09:54 | Pharmacy Report ---
Pharmacy Abx Dose Short Note - Date of Service May 16, 2020 - Assessment & Plan Assessment 64 year old M ordered empiric vancomycin and cefepime for sepsis suspected to be secondary to RLE cellulitis vs. LLL pneumonia * ESRD on HD - next HD session scheduled for tomorrow * MRSA swab is negative, 1/2 blood cultures growing GPCs in chains, R foot culture growing Staph species * Likely that GPC in blood is Strep given growing in chains and is likely a contaminant * Continue Vancomycin for Staph growing in foot culture * Reasonable to continue cefepime until cultures finalize * Significant improvement in leukocytosis today Plan Vancomycin * Random level of 17.1 mcg/mL is therapeutic * No documentation of any residual urine output by patient * Therefore, not concerned that his vancomycin level will decrease below 15 mcg/mL prior to tomorrow morning * No Vancomycin dose necessary for today * Will order a random level with AM labs tomorrow prior to HD * Patient will require a post-HD dose of Vancomycin tomorrow * Goal trough level: 15 to 20 mcg/mL Cefepime * Not a pharmacy consult * 500 mg IV every 24 hours is appropriate for a patient on HD Pharmacy will continue to follow and will adjust dose/frequency as necessary. Thank you.
--- NOTE | 2020-05-16 11:48 | Nephrology Progress Note ---
Date of Service May 16, 2020 Assessment & Plan (1) End-stage kidney disease: Sebastián has end-stage renal disease on hemodialysis TTS, admitted to the hospital with AMS , sepsis, possible LLL pneumonia and rt leg cellulitis, received Vanco, now on Cefepime. Blood pressure, volume status acceptable. Had dialysis yesterday. -- Plan for dialysis tomorrow as his regular schedule -- dose medications for GFR less than 10 -- continue phosphate binder with meal, Continue Nephrocaps -- MARILYN MARILYN as needed with dialysis for hemoglobin less than 10. -- discussed about potential need for long-term care facility placement however he is looking for to go home as he feels like his son who lives with him will be able to take care of him. will follow (2) Acute hyperkalemia: (3) Cellulitis of leg, right: (4) Secondary hyperparathyroidism of renal origin: (5) Anemia in chronic kidney disease: Admission and Anticipated Discharge Date Admission Date: May 14, 2020 Subjective Sebastián was seen and examined in his room this morning. Overall he is doing well, denies any specific symptoms, denies any pain his right foot. No shortness of breath or chest pain. Had dialysis yesterday. Blood pressure relatively low, asymptomatic, chronic for him. Electrolyte acceptable. Review of Systems Review of Systems: All systems reviewed & are unremarkable except as noted in Subjective Physical Exam Constitutional: WD/WN, vitals as above + ill appearing; no acute distress Neck: trachea midline Respiratory: no cough Auscultation: + diminished lung sounds and + rales Cardiovascular: Rate/Rhythm: regular rate and regular rhythm Heart Sounds: normal S1 and normal S2 Extremities: + AV fistula; no edema Skin: + erythema Neurologic: awake; not confused Psychiatric: A+Ox3, euthymic affect Results & Data ([facility]) Vital Signs (Past 12 Hours) Vital Signs Temp Pulse Pulse Pulse Resp BP Pulse Ox 05/16/20 11:09 37.0 C 82 20 103/58 L 90 05/16/20 07:34 36.8 C 102 H 20 107/64 91 05/16/20 07:00 103 H 05/16/20 06:07 98 H 122/65 05/16/20 03:29 16 05/16/20 03:27 36.8 C 107 H 19 116/69 93 PG Care Time/CCT Total # of Minutes Spent Total Time Spent with Patient: Total time spent is greater than 50% in coordination of care (as documented) at patient's floor/unit and/or counseling patient: Coding Level of Care Code 59558 Subseq Hosp Care Lvl 3 Diagnoses End-stage kidney disease N18.6 Acute hyperkalemia E87.5 Cellulitis of leg, right L03.115 Secondary hyperparathyroidism of renal origin N25.81 Anemia in chronic kidney disease N18.6; D63.1; Z99.2 Chronic kidney disease stage: on chronic dialysis (1) Anemia in chronic kidney disease Chronic kidney disease stage: on chronic dialysis Qualified Code(s): N18.6 - End stage renal disease; D63.1 - Anemia in chronic kidney disease; Z99.2 - Dependence on renal dialysis
--- NOTE | 2020-05-16 17:44 | XCELERA ---
[id number]
--- NOTE | 2020-05-16 18:00 | Electrocardiogram Report ---
Test Reason : Blood Pressure : / mmHG Vent. Rate : 119 BPM Atrial Rate : 110 BPM P-R Int : 000 ms QRS Dur : 088 ms QT Int : 316 ms P-R-T Axes : 000 003 108 degrees QTc Int : 444 ms Atrial fibrillation with rapid ventricular response with premature ventricular or aberrantly conducte d complexes Low voltage QRS Nonspecific T wave abnormality Abnormal ECG When compared with ECG of 14-MAY-2020 20:24, Atrial fibrillation has replaced Sinus rhythm Left anterior fascicular block is no longer Present Criteria for Septal infarct are no longer Present Confirmed by Alberto Hernadez ([id number]) on 05/16/2020 6:00:33 PM Referred By: Anaid Morgan Confirmed By:Alberto Hernadez
--- NOTE | 2020-05-16 19:18 | Cardiology Consultation ---
Date of Consultation May 16, 2020 Assessment & Plan (1) Paroxysmal A-fib: (2) Elevated troponin: (3) End-stage kidney disease: (4) Obstructive sleep apnea: (5) On home oxygen therapy: 60-year-old man with multiple medical problems including end-stage renal disease who had transient atrial fibrillation within a day of being admitted for sepsis. Fortunately, he has returned to and remains in sinus rhythm. His home medications included amlodipine 10 mg daily, carvedilol 3.125 mg twice daily, and losartan 50 mg daily. These were initially held due to concerns regarding hypotension, he is back only on the carvedilol. As his blood pressure recovers and increases, rather than adding back amlodipine would titrate carvedilol upward to allow for both alpha blocking antihypertensive effect and beta-blocking antidysrhythmic effect. If he remains hypertensive after either reaching maximal carvedilol dose (25 mg twice daily) or if he demonstrates relative bradycardia from the beta-blockade, could then add back amlodipine, perhaps at reduced dose. At some point, could also add back losartan for its beneficial vascular effects in diabetic patient. Regarding anticoagulation, his [id number] score is 3 (soon to be 4) but he has an elevated HAS-BLED score and there remains controversy regarding the strength of evidence for warfarin in end-stage renal disease (although this is still the most common anticoagulant in this situation). Since his atrial fibrillation was transient and occurred in the context of a hyperadrenergic state (sepsis) and since the patient can be routinely reevaluated for recurrent atrial fibrillation at the time of his thrice weekly dialysis, reasonable to withhold anticoagulation presently and decide whether to initiate warfarin based on occurrence and frequency of future atrial fibrillation. Thank you for this consultation, Dr. Fish will be covering over the weekend, please contact him if the patient has any change in clinical status. (6) Hypertension: History of Present Illness Reason for Consultation: Atrial fibrillation/elevated troponin Requesting Physician: Gardenia Ordonez MD Attending Physician: Gardenia Ordonez MD History of Present Illness 64-year-old man with end-stage renal disease (on hemodialysis), significant lung disease (oxygen dependent), diabetes with neuropathy, and other medical conditions who was admitted 05/14/2020 with sepsis, he had transient atrial fibrillation with rapid ventricular response and a moderately elevated troponin (0.2 rising to 0.5). Yesterday he developed atrial fibrillation with rapid ventricular response lasting a number of hours, fortunately this spontaneously converted back to sinus rhythm. He denies chest pain at any time. He notes no dyspnea at rest (on supplemental oxygen). During his episode of atrial fibrillation he did not note any subjective palpitations, lightheadedness, or other symptoms. Of note, the patient had a prior cardiac catheterization by Dr. Fish in 2018, this showed only luminal irregularities with no significant obstructive coronary artery disease. There was no evidence of aortic stenosis and his left ventricular end-diastolic pressure was normal. At the time of my evaluation this afternoon, the patient was asymptomatic and lying comfortably in a supine position. He was anxious to return home. Allergies Allergy/AdvReac Type Severity Reaction Status Date / Time lactose Allergy Intermediate Gastrointestinal Verified 05/14/20 23:30 Upset Home Medications Medication Instructions Recorded Confirmed Type aspirin 81 mg PO HS 12/22/17 05/14/20 History nitroglycerin See Rx Instructions .ROUTE 12/22/17 05/14/20 History .COMPLEX PRN buspirone 10 mg PO BID 01/27/18 05/14/20 History pen needle, diabetic 32 gauge x #100 ea 02/05/19 03/24/20 Rx 1/4" insulin degludec 100 unit/mL (3 16 units SQ DAILY ml 05/28/19 05/14/20 History mL) subcutaneous pen Wheelchair (Manual or Powered) #1 ea 09/11/19 03/24/20 Rx carvedilol 3.125 mg tablet 3.125 mg PO BID #60 tab 12/04/19 05/14/20 Rx ProRenal QD 1 cap PO QDD 01/22/20 05/14/20 History calcium acetate(phosphat bind) 1,334 mg PO TIDM 01/22/20 05/14/20 History calcium carbonate [Calcium 500] 500 mg PO 3XWK 01/22/20 05/14/20 History amlodipine 10 mg PO HS 02/08/20 05/14/20 History FreeStyle Virgil 14 Day Sensor #6 ea NS 02/26/20 03/24/20 Rx ergocalciferol (vitamin D2) 1,250 1,250 mcg PO WK #10 cap 03/17/20 05/14/20 Rx mcg (50,000 unit) capsule escitalopram oxalate 5 mg tablet 5 mg PO QAM #30 tab 03/17/20 05/14/20 Rx furosemide 80 mg tablet 80 mg PO BID #30 tab 03/17/20 05/14/20 Rx gabapentin 100 mg capsule 300 mg PO HS #30 cap 03/17/20 05/14/20 Rx levothyroxine 125 mcg tablet 125 mcg PO DAILYBB #30 tab 03/17/20 05/14/20 Rx losartan 50 mg tablet 50 mg PO DAILY #30 tab 03/17/20 05/14/20 Rx collagenase clostridium histo. 1 applic EXT DAILY #1 tube 03/27/20 05/14/20 Rx [Santyl] Patient History Medical History (Updated 05/16/20 @ 19:24 by Juan Jung MD) Anemia in chronic kidney disease Anxiety Dyslipidemia GERD (gastroesophageal reflux disease) LLL pneumonia On home oxygen therapy 2L n/c with cpap at HS Osteoarthritis Peripheral neuropathy bilt legs/feet Pleural effusion, left Secondary hyperparathyroidism of renal origin Surgical History History of bilateral cataract extraction History of cardiac cath 01/2018 "about 2-3 weeks"; no stents placed @ [facility] by Dr. Coronel History of carpal tunnel release R wrist History of colonoscopy History of repair of anterior cruciate ligament of left knee History of repair of anterior cruciate ligament of right knee History of tonsillectomy History of tooth extraction wisdom teeth Family History Family history of diabetes mellitus Mother Grandmother maternal Melanoma Colorectal cancer Inflammatory bowel disease Social History Smoking Status: Current every day smoker Tobacco Type: Cigarettes Cigarettes Per Day: 15 a day; Second Hand Exposure: No; Do You Dip or Chew Tobacco: No; Tobacco Cessation Education Requested by Patient: No Hx Alcohol Use: Yes Alcohol type: beer Hx Substance Use: No Preferred Language: Grenadian Communication Ability: Effective Rehabilitation Technician Required: No Beliefs That Will Affect Care: None marital status: Single Current Living Situation: Family Current Living Situation Comment: son- alisson Other Information That Helps Us Care for You: No Feels Safe at Home: Yes Safety Concerns: Feels Safe At This Time Assistive Devices: Glasses, Walker and Wheelchair Physical Exam Physical Exam: Obese white male lying comfortably. Normotensive. Pulse 72 and regular without ectopy. Respirations unlabored. Skin: no ecchymoses or generalized lesions. HEENT: unremarkable. Neck: Jugular venous pulse elevated usp to the angle of the jaw at 45 degrees, no carotid bruits. Lungs: Decreased breath sound at the bases but generally clear. No accessory muscle use. Cardiac: Mildly decreased heart tones, regular rhythm without ectopy, no obvious murmur or gallop. Abdomen: benign. Extremities: Trace pretibial edema, lower extremity rubor, pulses intact. Neurologic: normal affect, grossly nonfocal. Results & Data ([facility]) Vital Signs (Past 12 Hours) Vital Signs Temp Pulse Pulse Resp BP Pulse Ox 05/16/20 16:07 98.4 F 71 20 134/69 94 05/16/20 16:00 86 05/16/20 11:09 98.6 F 82 20 103/58 L 90 05/16/20 07:34 98.2 F 102 H 20 107/64 91 Laboratory Results Hemoglobin 9.6 with white count of 12.5. Normal electrolytes, BUN 40, creatinine 6.07. INR 1.5. Troponin 0 0.263 rising to 0.530. Diagnostic Findings ECG on admission shows sinus rhythm with first-degree AV block occasional PVCs, pulmonary disease pattern, left anterior fascicular block, old septal infarct, and poor R wave progression. Compared with prior study, left anterior fascicular block was new, otherwise no significant change. ECG in the day after admission showed atrial fibrillation with rapid ventricular response (119 bpm) with occasional aberrant conduction and nonspecific T wave abnormality. Chest x-ray showed small left pleural effusion and left base consolidation, interstitial thickening throughout the lungs. Echocardiogram today showed mildly reduced systolic function (EF 40 to 45%) with mild global hypokinesis and a flattened septum consistent with right ventricular volume overload. Right ventricle is moderately dilated with mildly reduced systolic function. Mild mitral and tricuspid regurgitation with normal right ventricular systolic pressure and dilated inferior vena cava. PG Care Time/CCT Total # of Minutes Spent Total Time Spent with Patient: Total time spent is greater than 50% in coordination of care (as documented) at patient's floor/unit and/or counseling patient: Coding Level of Care Code 79550 Initial Inpt Care Lvl 3 Diagnoses Paroxysmal A-fib I48.0 Elevated troponin R77.8 End-stage kidney disease N18.6 Obstructive sleep apnea G47.33 On home oxygen therapy Z99.81 Hypertension I10 Hypertension type: essential hypertension (1) Hypertension Hypertension type: essential hypertension Qualified Code(s): I10 - Essential (primary) hypertension
[2020-05-16] MEDS: ASPIRIN 81 MG ECTAB PO SCH (19:58)
[2020-05-16] MEDS: GABAPENTIN 300 MG CAP PO SCH (19:59)
[2020-05-17] MEDS: CEFEPIME 500 MG in SYRINGE 0 ML IV SCH (04:58)
[2020-05-17] MEDS: LEVOTHYROXINE SODIUM 125 MCG TABLET PO SCH (04:58)
[2020-05-17] MEDS: HEPARIN SOD 5,000 UNIT/0.5 ML VIAL SQ SCH ×3 (04:58→21:12)
[2020-05-17 06:04] LABS: Basophils # (auto) 0.03 K/uL (0-0.2); Basophils % (auto) 0.3 %; Eosinophils # (auto) 0.58 K/uL (0-0.5); Hematocrit (blood only) 30.7 % (42-52); Immature Granulocytes # (auto) 0.03 K/uL (0.00-0.02); Immature Granulocytes % (auto) 0.3 %; Lymphocytes # (auto) 2.99 K/uL (1.2-3.4); Mean Corpuscular Hemoglobin 31.7 pg (25-34); Mean Corpuscular Hgb Conc 32.6 g/dL (32-36); Mean Corpuscular Volume 97.5 fL (80-100); Mean Platelet Volume 9.6 fL (7.4-10.4); Monocytes # (auto) 0.67 K/uL (0.11-0.59); Neutrophils # (auto) 5.33 K/uL (1.4-6.5); Neutrophils % (auto) 55.4 %; Platelet Count 237 K/uL (130-400); RDW Coefficient of Variation 13.7 % (11.5-14.5); RDW Standard Deviation 48.7 fL (36.4-46.3); Red Blood Count 3.15 M/uL (4.7-6.1); White Blood Count 9.63 K/uL (4.8-10.8)
[2020-05-17 07:01] LABS: BUN Creatinine Ratio 8.5 (10-20); Calcium 8.7 mg/dl (8.5-10.1); Est GFR (African American) 7.7; Est GFR (Non-African American) 6.6; Potassium 4.4 mmol/L (3.5-5.1)
[2020-05-17] MEDS: INSULIN ASPART 100 UNITS/ML 3 ML PEN SC SCH ×4 (08:07→21:12)
[2020-05-17] MEDS: INSULIN GLARGINE SOLOSTAR 100 UNITS/ML 3 ML PEN SC SCH ×2 (08:09→21:11)
--- NOTE | 2020-05-17 12:35 | Nephrology Progress Note ---
Date of Service May 17, 2020 Assessment & Plan (1) End-stage kidney disease: HD TTS. Orders for HD today entered into EMR and reviewed with nurse. UF goal 3 L. BP acceptable. Volume status controlled. Qb adequate. Clearance slightly low but acceptable. AVF functioning well. Electrolytes controlled. Blood pressure, volume status acceptable. Had dialysis yesterday. Medications appropriately dosed for kidney function (2) Secondary hyperparathyroidism of renal origin: Low PO4 diet. Binder with meals. (3) Anemia in chronic kidney disease: MARILYN therapy held for Hgb >10. Admission and Anticipated Discharge Date Admission Date: May 14, 2020 Subjective Bill was seen and evaluated during HD this AM. Tolerating treatment well. No complaints or concerns. Review of Systems Review of Systems: All systems reviewed & are unremarkable except as noted in HPI & below Physical Exam Constitutional: well developed; no acute distress Eyes: no scleral abnormality and no corneal abnormality ENMT: Mouth: no oral mucosal abnormality and oral mucous membranes not dry Neck: normal visual inspection and trachea midline Respiratory: normal respiratory effort Auscultation: lungs clear to auscultation bilaterally Cardiovascular: Rate/Rhythm: regular rate Heart Sounds: normal S1 and normal S2 Extremities: + AV fistula; no edema Musculoskeletal: Extremities: no cyanosis and no clubbing Skin: normal turgor; no lesions Neurologic: Motor/Sensory: no tremor and no asterixis Psychiatric: Orientation: alert and oriented x 3 Results & Data ([facility]) Vital Signs (Past 12 Hours) Vital Signs Temp Pulse Pulse Pulse Resp BP BP 05/17/20 12:20 61 132/80 05/17/20 12:00 64 138/74 05/17/20 11:40 66 135/67 05/17/20 11:20 64 118/66 05/17/20 11:00 60 147/70 H 05/17/20 10:40 64 140/78 05/17/20 10:20 48 L 131/58 L 05/17/20 10:00 56 L 137/71 05/17/20 09:40 62 110/55 L 05/17/20 09:20 65 159/60 H 05/17/20 08:59 36.8 C 64 64 132/58 L 05/17/20 08:00 75 05/17/20 07:37 36.4 C L 63 18 144/74 H 05/17/20 04:00 36.3 C L 60 20 149/73 H 05/17/20 02:32 20 Pulse Ox 05/17/20 12:20 05/17/20 12:00 05/17/20 11:40 05/17/20 11:20 05/17/20 11:00 05/17/20 10:40 05/17/20 10:20 05/17/20 10:00 05/17/20 09:40 05/17/20 09:20 05/17/20 08:59 05/17/20 08:00 05/17/20 07:37 96 05/17/20 04:00 98 05/17/20 02:32 94 Laboratory Results Laboratory Results - last 24 hr 05/16/20 05/16/20 05/17/20 16:29 19:59 05:34 WBC 9.63 RBC 3.15 L Hgb 10.0 L Hct 30.7 L MCV 97.5 MCH 31.7 MCHC 32.6 RDW Std Deviation 48.7 H RDW Coeff of Jorge A 13.7 Plt Count 237 MPV 9.6 Immature Gran % (Auto) 0.3 Neut % (Auto) 55.4 Lymph % (Auto) 31.0 [place] % (Auto) 7.0 Eos % (Auto) 6.0 Baso % (Auto) 0.3 Neut # (Auto) 5.33 Lymph # (Auto) 2.99 [place] # (Auto) 0.67 H Eos # (Auto) 0.58 H Baso # (Auto) 0.03 Immature Gran # (Auto) 0.03 H Sodium Potassium Chloride Carbon Dioxide Anion Gap BUN Creatinine Est Cr Clr Drug Dosing Est GFR ( Amer) Est GFR (Non-Af Amer) BUN/Creatinine Ratio Glucose POC Glucose 153 H 126 H Calcium Random Vancomycin 05/17/20 05/17/20 05/17/20 05:34 05:34 07:24 WBC RBC Hgb Hct MCV MCH MCHC RDW Std Deviation RDW Coeff of Jorge A Plt Count MPV Immature Gran % (Auto) Neut % (Auto) Lymph % (Auto) [place] % (Auto) Eos % (Auto) Baso % (Auto) Neut # (Auto) Lymph # (Auto) [place] # (Auto) Eos # (Auto) Baso # (Auto) Immature Gran # (Auto) Sodium 137 Potassium 4.4 Chloride 99 Carbon Dioxide 29 Anion Gap 9.0 BUN 66 H D Creatinine 7.78 H* D Est Cr Clr Drug Dosing 12.0 Est GFR ( Amer) 7.7 Est GFR (Non-Af Amer) 6.6 BUN/Creatinine Ratio 8.5 L Glucose 125 H POC Glucose 134 H Calcium 8.7 Random Vancomycin 15.0 PG Care Time/CCT Total # of Minutes Spent Total Time Spent with Patient: Total time spent is greater than 50% in coordination of care (as documented) at patient's floor/unit and/or counseling patient: Coding Level of Care Code 47636 Subseq Hosp Care Lvl 3 Diagnoses End-stage kidney disease N18.6 Secondary hyperparathyroidism of renal origin N25.81 Anemia in chronic kidney disease N18.6; D63.1; Z99.2 Chronic kidney disease stage: on chronic dialysis (1) Anemia in chronic kidney disease Chronic kidney disease stage: on chronic dialysis Qualified Code(s): N18.6 - End stage renal disease; D63.1 - Anemia in chronic kidney disease; Z99.2 - Dependence on renal dialysis
--- NOTE | 2020-05-17 13:23 | Progress Notes ---
DATE: 05/17/2020 The patient is seen in dialysis. He now has a wound VAC on his right foot. Capillary refill is less than 2 seconds. His pedal pulses are not palpable. He is in his waffle boot and the wound VAC he is on. We will reassess the wound Tuesday when the wound VAC is changed. We will consult vascular surgery for evaluation of his circulation. Continue offloading.
[2020-05-17] MEDS: carvediloL 3.125 MG TAB PO SCH (14:42)
[2020-05-17] MEDS: busPIRone 5 MG TAB PO SCH ×2 (14:42→21:11)
[2020-05-17] MEDS: ESCITALOPRAM OXALATE 10 MG TAB PO SCH (14:42)
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
[2020-05-17] MEDS ORDERED: carvediloL 3.125 MG TAB PO SCH (21:00)
[2020-05-17] MEDS ORDERED: carvediloL 6.25 MG TAB PO SCH (21:00)
[2020-05-17] MEDS: ASPIRIN 81 MG ECTAB PO SCH (21:11)
[2020-05-17] MEDS: GABAPENTIN 300 MG CAP PO SCH (21:12)
[2020-05-17] MEDS: ACETAMINOPHEN 325 MG TAB PO PRN (23:03)
[2020-05-18] MEDS: CEFEPIME 500 MG in SYRINGE 0 ML IV SCH ×2 (04:00→04:10)
[2020-05-18] MEDS: ACETAMINOPHEN 325 MG TAB PO PRN ×2 (04:25→16:05)
[2020-05-18] MEDS: LEVOTHYROXINE SODIUM 125 MCG TABLET PO SCH (05:47)
[2020-05-18] MEDS: HEPARIN SOD 5,000 UNIT/0.5 ML VIAL SQ SCH ×3 (05:47→22:16)
[2020-05-18 06:54] LABS: Basophils # (auto) 0.04 K/uL (0-0.2); Basophils % (auto) 0.5 %; Eosinophils # (auto) 0.57 K/uL (0-0.5); Eosinophils % (auto) 6.6 %; Hematocrit (blood only) 30.9 % (42-52); Hemoglobin 9.8 g/dL (14.0-18.0); Immature Granulocytes # (auto) 0.06 K/uL (0.00-0.02); Immature Granulocytes % (auto) 0.7 %; Lymphocytes # (auto) 2.34 K/uL (1.2-3.4); Lymphocytes % (auto) 27.2 %; Mean Corpuscular Hgb Conc 31.7 g/dL (32-36); Mean Corpuscular Volume 97.8 fL (80-100); Mean Platelet Volume 9.8 fL (7.4-10.4); Monocytes # (auto) 0.76 K/uL (0.11-0.59); Monocytes % (auto) 8.8 %; Neutrophils # (auto) 4.83 K/uL (1.4-6.5); Neutrophils % (auto) 56.2 %; Platelet Count 271 K/uL (130-400); RDW Coefficient of Variation 13.3 % (11.5-14.5); RDW Standard Deviation 47.5 fL (36.4-46.3); Red Blood Count 3.16 M/uL (4.7-6.1)
[2020-05-18 07:49] LABS: BUN Creatinine Ratio 6.9 (10-20); Calcium 8.4 mg/dl (8.5-10.1); Creatinine Clr Calc Pharmacy 15.7 ml/min; Est GFR (African American) 10.8; Est GFR (Non-African American) 9.4; Potassium 3.8 mmol/L (3.5-5.1)
[2020-05-18] MEDS: busPIRone 5 MG TAB PO SCH ×2 (08:34→21:01)
[2020-05-18] MEDS: ESCITALOPRAM OXALATE 10 MG TAB PO SCH (08:34)
[2020-05-18] MEDS: carvediloL 6.25 MG TAB PO SCH ×2 (08:35→21:01)
[2020-05-18] MEDS: INSULIN GLARGINE SOLOSTAR 100 UNITS/ML 3 ML PEN SC SCH ×2 (08:36→21:02)
[2020-05-18] MEDS: INSULIN ASPART 100 UNITS/ML 3 ML PEN SC SCH ×4 (08:38→21:02)
--- NOTE | 2020-05-18 11:53 | Nephrology Progress Note ---
Date of Service May 18, 2020 Assessment & Plan (1) End-stage kidney disease: HD TTS. BP and volume status are acceptable. Electrolytes controlled. Next anticipated HD Tuesday. AVF functioning well. Medications appropriately dosed for kidney function (2) Secondary hyperparathyroidism of renal origin: Low PO4 diet. Binder with meals. (3) Anemia in chronic kidney disease: MARILYN therapy held for Hgb >10. Admission and Anticipated Discharge Date Admission Date: May 14, 2020 Subjective No acute events overnight. No complications with HD yesterday. Sebastián feels well this morning and hopes to be discharged home. He states that PT was in to work with him. Review of Systems Review of Systems: All systems reviewed & are unremarkable except as noted in HPI & below Physical Exam Constitutional: well developed; no acute distress Eyes: no scleral abnormality and no corneal abnormality ENMT: Mouth: no oral mucosal abnormality and oral mucous membranes not dry Neck: normal visual inspection and trachea midline Respiratory: normal respiratory effort Auscultation: lungs clear to auscultation bilaterally Cardiovascular: Rate/Rhythm: regular rate Heart Sounds: normal S1 and normal S2 Extremities: + AV fistula; no edema Musculoskeletal: Extremities: no cyanosis and no clubbing Skin: normal turgor; no lesions Neurologic: Motor/Sensory: no tremor and no asterixis Psychiatric: Orientation: alert and oriented x 3 Results & Data ([facility]) Vital Signs (Past 12 Hours) Vital Signs Temp Pulse Pulse Resp BP Pulse Ox 05/18/20 11:31 36.6 C 55 L 18 150/81 H 96 05/18/20 08:00 70 05/18/20 07:25 36.7 C 66 18 171/77 H 95 05/18/20 04:00 36.5 C 61 18 140/75 96 05/18/20 03:07 65 16 95 05/18/20 02:04 61 05/17/20 23:51 36.5 C 59 L 20 153/68 H 98 Laboratory Results Laboratory Results - last 24 hr 05/17/20 05/17/20 05/17/20 14:08 16:22 20:40 WBC RBC Hgb Hct MCV MCH MCHC RDW Std Deviation RDW Coeff of Jorge A Plt Count MPV Immature Gran % (Auto) Neut % (Auto) Lymph % (Auto) [place] % (Auto) Eos % (Auto) Baso % (Auto) Neut # (Auto) Lymph # (Auto) [place] # (Auto) Eos # (Auto) Baso # (Auto) Immature Gran # (Auto) Sodium Potassium Chloride Carbon Dioxide Anion Gap BUN Creatinine Est Cr Clr Drug Dosing Est GFR ( Amer) Est GFR (Non-Af Amer) BUN/Creatinine Ratio Glucose POC Glucose 122 H 203 H 123 H Calcium 05/18/20 05/18/20 05/18/20 05:57 05:57 07:11 WBC 8.60 RBC 3.16 L Hgb 9.8 L Hct 30.9 L MCV 97.8 MCH 31.0 MCHC 31.7 L RDW Std Deviation 47.5 H RDW Coeff of Jorge A 13.3 Plt Count 271 MPV 9.8 Immature Gran % (Auto) 0.7 Neut % (Auto) 56.2 Lymph % (Auto) 27.2 [place] % (Auto) 8.8 Eos % (Auto) 6.6 Baso % (Auto) 0.5 Neut # (Auto) 4.83 Lymph # (Auto) 2.34 [place] # (Auto) 0.76 H Eos # (Auto) 0.57 H Baso # (Auto) 0.04 Immature Gran # (Auto) 0.06 H Sodium 138 Potassium 3.8 Chloride 98 Carbon Dioxide 33 H Anion Gap 7.0 BUN 40 H Creatinine 5.85 H* D Est Cr Clr Drug Dosing 15.7 Est GFR ( Amer) 10.8 Est GFR (Non-Af Amer) 9.4 BUN/Creatinine Ratio 6.9 L Glucose 131 H POC Glucose 133 H Calcium 8.4 L 05/18/20 11:17 WBC RBC Hgb Hct MCV MCH MCHC RDW Std Deviation RDW Coeff of Jorge A Plt Count MPV Immature Gran % (Auto) Neut % (Auto) Lymph % (Auto) [place] % (Auto) Eos % (Auto) Baso % (Auto) Neut # (Auto) Lymph # (Auto) [place] # (Auto) Eos # (Auto) Baso # (Auto) Immature Gran # (Auto) Sodium Potassium Chloride Carbon Dioxide Anion Gap BUN Creatinine Est Cr Clr Drug Dosing Est GFR ( Amer) Est GFR (Non-Af Amer) BUN/Creatinine Ratio Glucose POC Glucose 169 H Calcium PG Care Time/CCT Total # of Minutes Spent Total Time Spent with Patient: Total time spent is greater than 50% in coordination of care (as documented) at patient's floor/unit and/or counseling patient: Coding Level of Care Code 56892 Subseq Hosp Care Lvl 3 Diagnoses End-stage kidney disease N18.6 Secondary hyperparathyroidism of renal origin N25.81 Anemia in chronic kidney disease N18.6; D63.1; Z99.2 Chronic kidney disease stage: on chronic dialysis (1) Anemia in chronic kidney disease Chronic kidney disease stage: on chronic dialysis Qualified Code(s): N18.6 - End stage renal disease; D63.1 - Anemia in chronic kidney disease; Z99.2 - Dependence on renal dialysis
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
[2020-05-18] MEDS: GABAPENTIN 300 MG CAP PO SCH (21:00)
[2020-05-18] MEDS: ASPIRIN 81 MG ECTAB PO SCH (21:01)
[2020-05-18] MEDS: amLODIPine BESYLATE 5 MG TAB PO SCH (21:03)
[2020-05-19] MEDS: cefTRIAXone SODIUM 2,000 MG in DEXTROSE 5% 50 ML IV SCH (04:21)
[2020-05-19] MEDS: HEPARIN SOD 5,000 UNIT/0.5 ML VIAL SQ SCH ×3 (05:40→21:03)
[2020-05-19] MEDS: LEVOTHYROXINE SODIUM 125 MCG TABLET PO SCH (05:41)
[2020-05-19] MEDS: busPIRone 5 MG TAB PO SCH ×2 (08:12→20:01)
[2020-05-19] MEDS: carvediloL 6.25 MG TAB PO SCH ×2 (08:12→20:01)
[2020-05-19] MEDS: ESCITALOPRAM OXALATE 10 MG TAB PO SCH (08:13)
[2020-05-19] MEDS: INSULIN GLARGINE SOLOSTAR 100 UNITS/ML 3 ML PEN SC SCH ×2 (08:17→20:02)
[2020-05-19] MEDS: INSULIN ASPART 100 UNITS/ML 3 ML PEN SC SCH ×4 (08:17→19:59)
[2020-05-19] MEDS: ACETAMINOPHEN 325 MG TAB PO PRN ×2 (08:20→17:10)
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
--- NOTE | 2020-05-19 09:26 | Nephrology Progress Note ---
Date of Service May 19, 2020 Assessment & Plan (1) End-stage kidney disease: HD TTS. BP and volume status are acceptable. Clearance with HD has been acceptable. Renal diet. Next anticipated HD tomorrow. AVF functioning well. Medications appropriately dosed for kidney function (2) Secondary hyperparathyroidism of renal origin: Low PO4 diet. Binder with meals. (3) Anemia in chronic kidney disease: MARILYN therapy held for Hgb >10. Admission and Anticipated Discharge Date Admission Date: May 14, 2020 Subjective No acute events overnight. Vascular US scheduled for this AM. Sebastián hopes to go home once antibiotic and wound vac coordinated. Review of Systems Review of Systems: All systems reviewed & are unremarkable except as noted in HPI & below Physical Exam Constitutional: well developed; no acute distress Eyes: no scleral abnormality and no corneal abnormality ENMT: Mouth: no oral mucosal abnormality and oral mucous membranes not dry Neck: normal visual inspection and trachea midline Respiratory: normal respiratory effort Auscultation: lungs clear to auscult ation bilaterally Cardiovascular: Rate/Rhythm: regular rate Heart Sounds: normal S1 and normal S2 Extremities: + AV fistula; no edema Musculoskeletal: Extremities: no cyanosis and no clubbing Skin: normal turgor; no lesions Neurologic: Motor/Sensory: no tremor and no asterixis Psychiatric: Orientation: alert and oriented x 3 Results & Data ([facility]) Vital Signs (Past 12 Hours) Vital Signs Temp Pulse Pulse Resp BP Pulse Ox 05/19/20 07:36 36.6 C 60 18 152/73 H 94 05/19/20 04:00 36.4 C L 59 L 18 157/69 H 98 05/19/20 02:30 84 18 98 05/18/20 23:36 36.6 C 56 L 18 155/71 H 98 05/18/20 22:51 60 Laboratory Results Laboratory Results - last 24 hr 05/18/20 05/18/20 05/18/20 11:17 16:24 20:28 POC Glucose 169 H 101 H 134 H 05/19/20 07:20 POC Glucose 143 H PG Care Time/CCT Total # of Minutes Spent Total Time Spent with Patient: Total time spent is greater than 50% in coordination of care (as documented) at patient's floor/unit and/or counseling patient: Coding Level of Care Code 53593 Subseq Hosp Care Lvl 3 Diagnoses End-stage kidney disease N18.6 Secondary hyperparathyroidism of renal origin N25.81 Anemia in chronic kidney disease N18.6; D63.1; Z99.2 Chronic kidney disease stage: on chronic dialysis (1) Anemia in chronic kidney disease Chronic kidney disease stage: on chronic dialysis Qualified Code(s): N18.6 - End stage renal disease; D63.1 - Anemia in chronic kidney disease; Z99.2 - Dependence on renal dialysis
--- NOTE | 2020-05-19 10:23 | Ultrasound Report ---
US arterial duplex LE BI CLINICAL HISTORY: right foot wound COMPARISON STUDY: No previous studies for comparison. FINDINGS: Ankle brachial indices could not be performed due to the patient's recent skin grafting. Toe pressure s were attempted but these cannot be performed due to the patient's constant twitching. On the left, there is triphasic flow within the common femoral and superficial femoral arteries. Ther e is biphasic flow within the left popliteal anterior tibial posterior tibial and peroneal arteries. No high velocity jets were visualized. On the right, there was triphasic flow within the right common femoral superficial femoral and poplit eal artery. There was triphasic flow within the peroneal. There is biphasic flow within the posterior tibial. There is triphasic flow within the proximal anterior tibial. There is a high-grade stenosis of the mid anterior tibial artery. Portions of the right calf cannot be evaluated due to overlying ba ndages. IMPRESSION: 1. No evidence of hemodynamic significant arterial stenosis in the left 2. No evidence of common femoral superficial femoral or popliteal artery stenosis on the right 3. High-grade stenosis of the right mid anterior tibial artery. ACT 112: Negative or not required by law. Electronically signed by: Donald Lafleur M.D. 05/19/2020 10:21 AM
--- NOTE | 2020-05-19 10:57 | Progress Notes ---
DATE: 05/19/2020 Seen in conjunction with wound care. The wound VAC had been alarming earlier this morning. He was down for an ultrasound. Vascular surgery has been consulted. The wound VAC is removed. The wound over the medial aspect of the big toe is superficial about 1.5 cm in diameter and healing well. The heel wound actually looks like it is granulating in reasonably well. I went ahead and re-debrided with the patient's permission using a curette. Distal anterior, the wound deep into about a centimeter. There was no exposed bone. I got good bleeding and was able to remove some more necrotic tissue. A curette was utilized and the square centimeters of debridement were approximately 10. Plan is to continue offloading. Reapplied the wound VAC and we will reassess on Tuesday. The patient wants to go home, but discussed with him the importance of offloading and wound care. There is no surrounding cellulitis. There was much less necrotic tissue present. The wound VAC looked to be healing things up in a proper fashion. We will continue to monitor.
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
[2020-05-19] MEDS ORDERED: OPTIRAY 320 125ml IV ONE (15:17)
--- NOTE | 2020-05-19 16:00 | CT Scan Report ---
CT OF THE RIGHT LOWER EXTREMITY WITHOUT CONTRAST AND CT ANGIOGRAPHY OF THE RIGHT LOWER EXTREMITY CLINICAL HISTORY: Right lower extremity peripheral arterial disease. COMPARISON STUDY: Bilateral lower extremity arterial Doppler ultrasound May 19, 2020. TECHNIQUE: Unenhanced and arterial phase imaging of the right lower extremity was performed. Intraven ous injection of 120 cc Optiray 320 during arterial phase was uneventful. Sagittal and coronal recons tructions were viewed as well as maximal intensity projected on an independent 3-D workstation. Autom ated exposure control was utilized for the study. A dose lowering technique was utilized adhering to the principles of ALARA. FINDINGS: Note is made of a wound overlying the right calcaneus. There is no CT evidence for associat ed osteomyelitis. A moderate amount stool within the rectum is noted. There is no acute fracture or e vidence for a myelitis within the right lower extremity by CT. No right inguinal lymphadenopathy is p resent. There is severe stenosis of the mid right internal iliac artery. The right common iliac artery is pat ent with mild plaque. The right external iliac artery is patent with minimal plaque. The right common femoral artery is patent. There is mild plaque within the proximal right superficial femoral artery without significant stenosis. There is moderate plaque within the remainder of the right superficial femoral artery without associated stenosis. There is also mild plaque within the right popliteal sara ry without stenosis. The right anterior tibial artery is patent however there are moderate to severe multifocal stenoses within the mid to distal aspect of this vessel. The right dorsalis pedis is paten t. There is severe focal stenosis of the mid right peroneal artery. The right posterior tibial artery is patent however there is severe stenosis within the distal aspect of this vessel. There is moderat e stenosis within the mid aspect of this vessel. No intraluminal thrombus is identified. There is no aneurysm within the right lower extremity. There is no dissection within the right lower extremity. IMPRESSION: 1. No significant stenosis within the right common femoral, superficial femoral or popliteal arteries . Mild plaque at the origin of the right superficial femoral artery without significant stenosis. Pat ent right common iliac and external iliac arteries. Severe stenosis within the mid right internal sylvia ac artery. 2. Severe multifocal stenoses within the mid to distal right anterior tibial, peroneal and posterior tibial arteries, as detailed above. 2. Wound overlying the right calcaneus without CT evidence for osteomyelitis. ACT 112: Negative or not required by law. Electronically signed by: Quentin Morales M.D. 05/19/2020 3:59 PM
--- NOTE | 2020-05-19 18:33 | Billing Data ---
Date of Service May 19, 2020 Coding Level of Care Code 31829 Subseq Hosp Care Lvl 3
[2020-05-19] MEDS: GABAPENTIN 300 MG CAP PO SCH (20:01)
[2020-05-19] MEDS: amLODIPine BESYLATE 5 MG TAB PO SCH (20:01)
[2020-05-19] MEDS: ASPIRIN 81 MG ECTAB PO SCH (20:01)
[2020-05-20] MEDS: cefTRIAXone SODIUM 2,000 MG in DEXTROSE 5% 50 ML IV SCH (04:21)
[2020-05-20] MEDS: LEVOTHYROXINE SODIUM 125 MCG TABLET PO SCH (06:02)
[2020-05-20] MEDS: HEPARIN SOD 5,000 UNIT/0.5 ML VIAL SQ SCH ×3 (06:02→21:35)
[2020-05-20 06:17] LABS: Hematocrit (blood only) 29.3 % (42-52); Hemoglobin 9.5 g/dL (14.0-18.0)
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
[2020-05-20 06:49] LABS: Albumin Level 2.3 gm/dl (3.4-5.0); BUN Creatinine Ratio 6.7 (10-20); Calcium 8.7 mg/dl (8.5-10.1); Creatinine Clr Calc Pharmacy 10.1 ml/min; Est GFR (African American) 6.4; Est GFR (Non-African American) 5.5; Potassium 4.3 mmol/L (3.5-5.1)
[2020-05-20 07:04] LABS: Hematocrit (blood only) 30.1 % (42-52); Mean Corpuscular Hemoglobin 31.6 pg (25-34); Mean Corpuscular Hgb Conc 33.2 g/dL (32-36); Mean Corpuscular Volume 95.3 fL (80-100); Mean Platelet Volume 9.1 fL (7.4-10.4); Platelet Count 294 K/uL (130-400); RDW Coefficient of Variation 13.3 % (11.5-14.5); RDW Standard Deviation 46.3 fL (36.4-46.3); Red Blood Count 3.16 M/uL (4.7-6.1); White Blood Count 11.58 K/uL (4.8-10.8)
[2020-05-20] MEDS: busPIRone 5 MG TAB PO SCH ×2 (07:50→21:35)
[2020-05-20] MEDS: carvediloL 6.25 MG TAB PO SCH ×3 (07:50→21:35)
[2020-05-20] MEDS: ESCITALOPRAM OXALATE 10 MG TAB PO SCH (07:50)
[2020-05-20] MEDS: INSULIN ASPART 100 UNITS/ML 3 ML PEN SC SCH ×4 (07:53→21:35)
[2020-05-20] MEDS: INSULIN GLARGINE SOLOSTAR 100 UNITS/ML 3 ML PEN SC SCH ×2 (07:54→21:35)
--- NOTE | 2020-05-20 11:39 | Surgery Progress Note ---
Date of Service May 20, 2020 Assessment & Plan (1) Peripheral arterial disease: Would recommend arteriography with possible intervention. Won't be able to be done until Tuesday of this week. Admission and Anticipated Discharge Date Admission Date: May 14, 2020 Subjective Patient seen in dialysis. No new complaints Physical Exam Physical Exam: Wound vac in place No changes in vascular exam The CTA shows significant stenosis in all three outflow arteries of the right lower extremity. Results & Data ([facility]) Vital Signs (Past 12 Hours) Vital Signs Temp Pulse Pulse Pulse Resp BP BP 05/20/20 11:20 50 L 156/74 H 05/20/20 11:00 67 134/84 05/20/20 10:40 59 L 129/56 L 05/20/20 10:20 57 L 137/69 05/20/20 10:00 55 L 129/61 05/20/20 09:40 58 L 165/69 H 05/20/20 09:20 59 L 164/72 H 05/20/20 09:09 36.5 C 62 62 156/76 H 05/20/20 07:30 55 L 20 149/73 H 05/20/20 07:18 56 L 05/20/20 03:18 36.5 C 61 18 155/75 H 05/19/20 23:49 65 Pulse Ox 05/20/20 11:20 05/20/20 11:00 05/20/20 10:40 05/20/20 10:20 05/20/20 10:00 05/20/20 09:40 05/20/20 09:20 05/20/20 09:09 05/20/20 07:30 96 05/20/20 07:18 05/20/20 03:18 94 05/19/20 23:49
--- NOTE | 2020-05-20 12:19 | Nephrology Progress Note ---
Date of Service May 20, 2020 Assessment & Plan (1) End-stage kidney disease: HD orders entered into EMR and reviewed with nurse. UF goal 2 L. Qb appropriate. Clearance acceptable. Renal diet. Next anticipated . AVF functioning well. Medications appropriately dosed for kidney function (2) Secondary hyperparathyroidism of renal origin: Low PO4 diet. Binder with meals. (3) Anemia in chronic kidney disease: MARILYN therapy held for Hgb >10. Admission and Anticipated Discharge Date Admission Date: May 14, 2020 Subjective No acute events overnight. Sebastián was seen and evaluated during HD. Tolerating treatment well. No complications. No complaints this AM. Review of Systems Review of Systems: All systems reviewed & are unremarkable except as noted in HPI & below Physical Exam Constitutional: well developed; no acute distress Eyes: no scleral abnormality and no corneal abnormality ENMT: Mouth: no oral mucosal abnormality and oral mucous membranes not dry Neck: normal visual inspection and trachea midline Respiratory: normal respiratory effort Auscultation: lungs clear to auscultation bilaterally Cardiovascular: Rate/Rhythm: regular rate Heart Sounds: normal S1 and normal S2 Extremities: + AV fistula; no edema Musculoskeletal: Extremities: no cyanosis and no clubbing Skin: normal turgor; no lesions Neurologic: Motor/Sensory: no tremor and no asterixis Psychiatric: Orientation: alert and oriented x 3 Results & Data ([facility]) Vital Signs (Past 12 Hours) Vital Signs Temp Pulse Pulse Pulse Resp BP BP 05/20/20 12:00 64 155/76 H 05/20/20 11:40 54 L 148/67 H 05/20/20 11:20 50 L 156/74 H 05/20/20 11:00 67 134/84 05/20/20 10:40 59 L 129/56 L 05/20/20 10:20 57 L 137/69 05/20/20 10:00 55 L 129/61 05/20/20 09:40 58 L 165/69 H 05/20/20 09:20 59 L 164/72 H 05/20/20 09:09 36.5 C 62 62 156/76 H 05/20/20 07:30 55 L 20 149/73 H 05/20/20 07:18 56 L 05/20/20 03:18 36.5 C 61 18 155/75 H Pulse Ox 05/20/20 12:00 05/20/20 11:40 02/16/21 11:20 05/20/20 11:00 05/20/20 10:40 05/20/20 10:20 05/20/20 10:00 05/20/20 09:40 05/20/20 09:20 05/20/20 09:09 05/20/20 07:30 96 05/20/20 07:18 05/20/20 03:18 94 Laboratory Results Laboratory Results - last 24 hr 05/19/20 05/19/20 05/20/20 16:41 19:50 05:49 WBC RBC Hgb 9.5 L Hct 29.3 L MCV MCH MCHC RDW Std Deviation RDW Coeff of Jorge A Plt Count MPV Sodium Potassium Chloride Carbon Dioxide Anion Gap BUN Creatinine Est Cr Clr Drug Dosing Est GFR ( Amer) Est GFR (Non-Af Amer) BUN/Creatinine Ratio Glucose POC Glucose 146 H 145 H Calcium Phosphorus Albumin 05/20/20 05/20/20 05/20/20 05:49 06:49 06:49 WBC 11.58 H RBC 3.16 L Hgb 10.0 L Hct 30.1 L MCV 95.3 MCH 31.6 MCHC 33.2 RDW Std Deviation 46.3 RDW Coeff of Jorge A 13.3 Plt Count 294 MPV 9.1 Sodium 134 L Cancelled Potassium 4.3 Cancelled Chloride 95 L Cancelled Carbon Dioxide 28 Cancelled Anion Gap 11.0 Cancelled BUN 61 H D Cancelled Creatinine 9.08 H* D Cancelled Est Cr Clr Drug Dosing 10.1 Cancelled Est GFR ( Amer) 6.4 Cancelled Est GFR (Non-Af Amer) 5.5 Cancelled BUN/Creatinine Ratio 6.7 L Cancelled Glucose 119 H Cancelled POC Glucose Calcium 8.7 Cancelled Phosphorus 5.0 H Albumin 2.3 L 05/20/20 07:37 WBC RBC Hgb Hct MCV MCH MCHC RDW Std Deviation RDW Coeff of Jorge A Plt Count MPV Sodium Potassium Chloride Carbon Dioxide Anion Gap BUN Creatinine Est Cr Clr Drug Dosing Est GFR ( Amer) Est GFR (Non-Af Amer) BUN/Creatinine Ratio Glucose POC Glucose 121 H Calcium Phosphorus Albumin PG Care Time/CCT Total # of Minutes Spent Total Time Spent with Patient: Total time spent is greater than 50% in coordination of care (as documented) at patient's floor/unit and/or counseling patient: Coding Level of Care Code 12419 Subseq Hosp Care Lvl 3 Diagnoses End-stage kidney disease N18.6 Secondary hyperparathyroidism of renal origin N25.81 Anemia in chronic kidney disease N18.6; D63.1; Z99.2 Chronic kidney disease stage: on chronic dialysis (1) Anemia in chronic kidney disease Chronic kidney disease stage: on chronic dialysis Qualified Code(s): N18.6 - End stage renal disease; D63.1 - Anemia in chronic kidney disease; Z99.2 - Dependence on renal dialysis
[2020-05-20] MEDS: LOSARTAN POTASSIUM 50 MG TAB PO SCH (16:27)
--- NOTE | 2020-05-20 18:39 | Billing Data ---
Date of Service May 20, 2020 Coding Level of Care Code 59538 Subseq Hosp Care Lvl 3
[2020-05-20] MEDS: amLODIPine BESYLATE 5 MG TAB PO SCH (21:35)
[2020-05-20] MEDS: ASPIRIN 81 MG ECTAB PO SCH (21:35)
[2020-05-20] MEDS: GABAPENTIN 300 MG CAP PO SCH (21:35)
[2020-05-21] MEDS: cefTRIAXone SODIUM 2,000 MG in DEXTROSE 5% 50 ML IV SCH (03:25)
[2020-05-21] MEDS: HEPARIN SOD 5,000 UNIT/0.5 ML VIAL SQ SCH ×3 (05:58→21:40)
[2020-05-21] MEDS: LEVOTHYROXINE SODIUM 125 MCG TABLET PO SCH (05:58)
[2020-05-21] MEDS: carvediloL 6.25 MG TAB PO SCH ×2 (08:42→20:39)
[2020-05-21] MEDS: busPIRone 5 MG TAB PO SCH ×2 (08:42→20:38)
[2020-05-21] MEDS: LOSARTAN POTASSIUM 50 MG TAB PO SCH (08:42)
[2020-05-21] MEDS: ESCITALOPRAM OXALATE 10 MG TAB PO SCH (08:42)
[2020-05-21] MEDS: INSULIN ASPART 100 UNITS/ML 3 ML PEN SC SCH ×4 (08:45→20:40)
[2020-05-21] MEDS: INSULIN GLARGINE SOLOSTAR 100 UNITS/ML 3 ML PEN SC SCH ×2 (08:45→20:39)
--- NOTE | 2020-05-21 10:19 | Orthopedic Progress Note ---
Date of Service May 21, 2020 Assessment & Plan (1) Open wound of heel: Patient seen in conjunction with wound care nurses. He's been having a wound vac on right heel. Some mild issues with is sealing. Would recommend to continue wound vac and wound vac changes every Tuesday, tuesday and tuesday. Continue offloading shoe right foot. Elevation as needed Antibiotics as per primary service Revascularization procedure as per vascular service Will continue to follow in hospital. Okay for discharge to home from ortho standpoint when medical and vascularly stable. Will plan to follow up with him next week and will coordinate a home health visit after Dr. Vela's appointment for wound vac application. Appointment scheduled with Dr. Vela on 05/28/20 at 11:30 a.m. Admission and Anticipated Discharge Date Admission Date: May 14, 2020 Subjective patient is doing well. Sitting up, pleasant, no pain, less swelling. Tolerating regular diet. He would like to go home soon. He tells me that he is getting some vascular procedure to improve the blood flow to his leg by Dr. Reynolds, possibly on Tuesday, although he'd like it earlier so that he can go home sooner. He is planning on going home with home health. Physical Exam Physical Exam: Exam of right foot and ankle: No edema right foot; skin graft healing nicely. Medial wound over 1st MT healing, superficial with healthy granulation tissue. Wound is clean. Right heel wound with healthy granulation tissue, no active bleeding mild maceration around skin edges. No exposed bone. Nontender with palpation. No necrotic tissue present. Results & Data ([facility]) Vital Signs (Past 12 Hours) Vital Signs Temp Pulse Pulse Resp BP Pulse Ox 05/21/20 07:50 36.6 C 64 20 152/75 H 96 05/21/20 07:13 64 05/21/20 03:53 36.8 C 66 16 157/68 H 94 05/21/20 00:42 67 05/20/20 23:16 36.7 C 63 20 167/67 H 95
--- NOTE | 2020-05-21 10:34 | Nephrology Progress Note ---
Date of Service May 21, 2020 Assessment & Plan (1) End-stage kidney disease: HD TTS. Clearances acceptable. Volume status euvolemic. BP controlled. Next anticipated treatment tomorrow. Renal diet. AVF functioning well. Medications appropriately dosed for kidney function (2) Secondary hyperparathyroidism of renal origin: Low PO4 diet. Binder with meals. (3) Anemia in chronic kidney disease: MARILYN therapy held for Hgb >10. Admission and Anticipated Discharge Date Admission Date: May 14, 2020 Subjective No acute events overnight. Sebastián feels well this AM. He hopes to go home today. Tolerated HD well yesterday. No complications with dialysis. Review of Systems Review of Systems: All systems reviewed & are unremarkable except as noted in HPI & below Physical Exam Constitutional: well developed; no acute distress Eyes: no scleral abnormality and no corneal abnormality ENMT: Mouth: no oral mucosal abnormality and oral mucous membranes not dry Neck: normal visual inspection and trachea midline Respiratory: normal respiratory effort Auscultation: lungs clear to au scultation bilaterally Cardiovascular: Rate/Rhythm: regular rate Heart Sounds: normal S1 and normal S2 Extremities: + AV fistula; no edema Musculoskeletal: Extremities: no cyanosis and no clubbing Skin: normal turgor; no lesions Neurologic: Motor/Sensory: no tremor and no asterixis Psychiatric: Orientation: alert and oriented x 3 Results & Data ([facility]) Vital Signs (Past 12 Hours) Vital Signs Temp Pulse Pulse Resp BP Pulse Ox 05/21/20 07:50 36.6 C 64 20 152/75 H 96 05/21/20 07:13 64 05/21/20 03:53 36.8 C 66 16 157/68 H 94 05/21/20 00:42 67 05/20/20 23:16 36.7 C 63 20 167/67 H 95 Laboratory Results Laboratory Results - last 24 hr 05/20/20 05/20/20 05/20/20 13:50 16:50 20:42 POC Glucose 98 109 H 118 H COVID-19 Eval Order SARS-CoV-2, RNA, NAAT 05/20/20 05/20/20 05/21/20 21:59 21:59 07:39 POC Glucose 143 H COVID-19 Eval Order Covid19 IDNow atMPAC SARS-CoV-2, RNA, NAAT NEGATIVE PG Care Time/CCT Total # of Minutes Spent Total Time Spent with Patient: Total time spent is greater than 50% in coordination of care (as documented) at patient's floor/unit and/or counseling patient: Coding Level of Care Code 17540 Subseq Hosp Care Lvl 3 Diagnoses End-stage kidney disease N18.6 Secondary hyperparathyroidism of renal origin N25.81 Anemia in chronic kidney disease N18.6; D63.1; Z99.2 Chronic kidney disease stage: on chronic dialysis (1) Anemia in chronic kidney disease Chronic kidney disease stage: on chronic dialysis Qualified Code(s): N18.6 - End stage renal disease; D63.1 - Anemia in chronic kidney disease; Z99.2 - Dependence on renal dialysis
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
--- NOTE | 2020-05-21 17:01 | Billing Data ---
Date of Service May 21, 2020 Coding Level of Care Code 37283 Subseq Hosp Care Lvl 3
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
[2020-05-21] MEDS: GABAPENTIN 300 MG CAP PO SCH (20:39)
[2020-05-21] MEDS: ASPIRIN 81 MG ECTAB PO SCH (20:39)
[2020-05-21] MEDS: amLODIPine BESYLATE 5 MG TAB PO SCH (20:39)
[2020-05-22] MEDS: cefTRIAXone SODIUM 2,000 MG in DEXTROSE 5% 50 ML IV SCH (04:54)
[2020-05-22] MEDS: LEVOTHYROXINE SODIUM 125 MCG TABLET PO SCH (06:37)
[2020-05-22] MEDS: HEPARIN SOD 5,000 UNIT/0.5 ML VIAL SQ SCH ×3 (06:37→21:26)
[2020-05-22 07:12] LABS: Hematocrit (blood only) 29.1 % (42-52); Hemoglobin 9.6 g/dL (14.0-18.0)
[2020-05-22] MEDS: busPIRone 5 MG TAB PO SCH ×2 (07:58→20:38)
[2020-05-22] MEDS: carvediloL 6.25 MG TAB PO SCH ×2 (07:58→20:39)
[2020-05-22 07:59] LABS: BUN Creatinine Ratio 5.6 (10-20); Creatinine Clr Calc Pharmacy 11.5 ml/min; Est GFR (African American) 7.3; Est GFR (Non-African American) 6.3; Potassium 4.4 mmol/L (3.5-5.1)
[2020-05-22] MEDS: LOSARTAN POTASSIUM 50 MG TAB PO SCH (07:59)
[2020-05-22] MEDS: INSULIN GLARGINE SOLOSTAR 100 UNITS/ML 3 ML PEN SC SCH ×2 (07:59→20:40)
[2020-05-22] MEDS: ESCITALOPRAM OXALATE 10 MG TAB PO SCH (07:59)
[2020-05-22] MEDS: INSULIN ASPART 100 UNITS/ML 3 ML PEN SC SCH ×4 (08:00→20:41)
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
--- NOTE | 2020-05-22 09:40 | Communication Note ---
Date of Service: May 22, 2020 Patient for a right lower extremity arteriogram with possible intervention tomorrow. I have discussed the risks options and benefits of the procedure with the patient. The patient understands the risks options and benefits and agrees to the procedure.
[2020-05-22] MEDS ORDERED: EPOETIN ALFA 40,000 UNITS/ML VIAL IV ONE (11:50)
--- NOTE | 2020-05-22 11:50 | Nephrology Progress Note ---
Date of Service May 22, 2020 Assessment & Plan (1) End-stage kidney disease: HD TTS. Orders entered into EMR and reviewed with nurse. UF goal 2-3 L, as tolerated. Clearances acceptable. Qb at goal. Volume status controlled. BP acceptable. Renal diet. AVF functioning well. Medications appropriately dosed for kidney function (2) Secondary hyperparathyroidism of renal origin: Low PO4 diet. Binder with meals. (3) Anemia in chronic kidney disease: Epogen 24744 units with HD today. Admission and Anticipated Discharge Date Admission Date: May 14, 2020 Subjective No acute events overnight. Sebastián was seen and evaluated prior to and during hemodialysis today. He is tolerating HD well. No complications with treamtent. Review of Systems Review of Systems: All systems reviewed & are unremarkable except as noted in HPI & below Physical Exam Constitutional: well developed; no acute distress Eyes: no scleral abnormality and no corneal abnormality ENMT: Mouth: no oral mucosal abnormality and oral mucous membranes not dry Neck: normal visual inspection and trachea midline Respiratory: normal respiratory effort Auscultation: lungs clear to auscultation bilaterally Cardiovascular: Rate/Rhythm: regular rate Heart Sounds: normal S1 and normal S2 Extremities: + AV fistula; no edema Musculoskeletal: Extremities: no cyanosis and no clubbing Skin: normal turgor; no lesions Neurologic: Motor/Sensory: no tremor and no asterixis Psychiatric: Orientation: alert and oriented x 3 Results & Data ([facility]) Vital Signs (Past 12 Hours) Vital Signs Temp Pulse Pulse Resp BP Pulse Ox 05/22/20 11:00 36.7 C 61 20 179/75 H 92 05/22/20 08:04 68 05/22/20 08:00 36.6 C 62 20 151/69 H 95 05/22/20 07:10 58 L 05/22/20 03:38 36.2 C L 64 16 177/69 H 94 05/22/20 03:35 61 18 97 05/21/20 23:57 36.3 C L 59 L 16 162/89 H 98 Laboratory Results Laboratory Results - last 24 hr 05/21/20 05/21/20 05/22/20 16:28 20:14 06:49 Hgb 9.6 L Hct 29.1 L Sodium Potassium Chloride Carbon Dioxide Anion Gap BUN Creatinine Est Cr Clr Drug Dosing Est GFR ( Amer) Est GFR (Non-Af Amer) BUN/Creatinine Ratio Glucose POC Glucose 95 158 H Calcium 05/22/20 05/22/20 06:49 07:43 Hgb Hct Sodium 135 L Potassium 4.4 Chloride 99 Carbon Dioxide 27 Anion Gap 9.0 BUN 46 H Creatinine 8.14 H* Est Cr Clr Drug Dosing 11.5 Est GFR ( Amer) 7.3 Est GFR (Non-Af Amer) 6.3 BUN/Creatinine Ratio 5.6 L Glucose 130 H POC Glucose 198 H Calcium 9.0 PG Care Time/CCT Total # of Minutes Spent Total Time Spent with Patient: Total time spent is greater than 50% in coordination of care (as documented) at patient's floor/unit and/or counseling patient: Coding Level of Care Code 96426 Subseq Hosp Care Lvl 3 Diagnoses End-stage kidney disease N18.6 Secondary hyperparathyroidism of renal origin N25.81 Anemia in chronic kidney disease N18.6; D63.1; Z99.2 Chronic kidney disease stage: on chronic dialysis (1) Anemia in chronic kidney disease Chronic kidney disease stage: on chronic dialysis Qualified Code(s): N18.6 - End stage renal disease; D63.1 - Anemia in chronic kidney disease; Z99.2 - Dependence on renal dialysis
--- NOTE | 2020-05-22 16:01 | Billing Data ---
Date of Service May 22, 2020 Coding Level of Care Code 45231 Subseq Hosp Care Lvl 3
[2020-05-22] MEDS: ACETAMINOPHEN 325 MG TAB PO PRN (16:22)
[2020-05-22] MEDS: GABAPENTIN 300 MG CAP PO SCH (20:39)
[2020-05-22] MEDS: ASPIRIN 81 MG ECTAB PO SCH (20:39)
[2020-05-22] MEDS: amLODIPine BESYLATE 5 MG TAB PO SCH (20:40)
[2020-05-23] MEDS: cefTRIAXone SODIUM 2,000 MG in DEXTROSE 5% 50 ML IV SCH (04:45)
[2020-05-23] MEDS: LEVOTHYROXINE SODIUM 125 MCG TABLET PO SCH (05:35)
[2020-05-23] MEDS: HEPARIN SOD 5,000 UNIT/0.5 ML VIAL SQ SCH ×3 (05:36→22:41)
[2020-05-23] MEDS ORDERED: SODIUM CHLORIDE 0.9% 1000ML 1,000 ML IV SCH (06:00)
[2020-05-23] MEDS ORDERED: ceFAZolin 2000MG 2,000 MG/15 ML SYR IV SCH (06:00)
--- NOTE | 2020-05-23 07:34 | History & Physical Bridge Note ---
Date of Service May 23, 2020 History & Physical Bridge Note Patient for a right leg arteriogram with possible intervention. I have discussed the risks options and benefits of the procedure with the patient. The patient understands the risks options and benefits and agrees to the procedure. I have examined the patient, reviewed the History & Physical and in the interval since the performance of the History & Physical I have noted the following changes of clinical significance: no changes noted
[2020-05-23] MEDS: INSULIN ASPART 100 UNITS/ML 3 ML PEN SC SCH ×4 (08:11→22:46)
[2020-05-23] MEDS: INSULIN GLARGINE SOLOSTAR 100 UNITS/ML 3 ML PEN SC SCH ×2 (08:12→22:41)
[2020-05-23] MEDS: LOSARTAN POTASSIUM 50 MG TAB PO SCH (08:13)
[2020-05-23] MEDS: carvediloL 6.25 MG TAB PO SCH ×2 (08:13→22:32)
[2020-05-23] MEDS: busPIRone 5 MG TAB PO SCH ×2 (08:21→22:32)
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
[2020-05-23] MEDS ORDERED: LIDOCAINE HCL 1% 20 ML VIAL INFIL ONE (11:47)
--- NOTE | 2020-05-23 11:58 | Pre Anesthesia Assessment ---
Date of Service May 23, 2020 Pre Sedation Assessment Vital Signs Temp Pulse Pulse Pulse Resp BP BP 05/23/20 11:43 36.7 C 62 20 166/72 H 05/23/20 11:20 36.7 C 61 18 168/67 H 05/23/20 07:52 36.9 C 67 16 154/73 H 05/23/20 07:00 64 05/23/20 03:38 36.9 C 81 20 159/81 H 05/23/20 01:59 82 05/22/20 23:32 36.8 C 81 20 166/75 H 05/22/20 22:23 81 23 05/22/20 20:29 36.6 C 140/63 05/22/20 19:57 36.6 C 70 18 169/68 H 05/22/20 16:42 75 05/22/20 15:53 36.6 C 64 18 160/74 H 05/22/20 15:02 59 L 147/68 H 05/22/20 14:40 58 L 135/61 05/22/20 14:20 58 L 130/61 05/22/20 14:02 57 L 133/65 05/22/20 13:40 58 L 143/70 H 05/22/20 13:24 58 L 142/68 H 05/22/20 13:00 56 L 140/53 L 05/22/20 12:40 59 L 140/60 05/22/20 12:20 58 L 137/63 05/22/20 12:00 58 L 125/63 Pulse Ox 05/23/20 11:43 96 05/23/20 11:20 94 05/23/20 07:52 96 05/23/20 07:00 05/23/20 03:38 98 05/23/20 01:59 05/22/20 23:32 95 05/22/20 22:23 93 05/22/20 20:29 05/22/20 19:57 94 05/22/20 16:42 05/22/20 15:53 95 05/22/20 15:02 05/22/20 14:40 05/22/20 14:20 05/22/20 14:02 05/22/20 13:40 05/22/20 13:24 05/22/20 13:00 05/22/20 12:40 05/22/20 12:20 05/22/20 12:00 Cardiovascular RRR, no murmur, no edema Respiratory normal respiratory effort, lungs clear to auscultation Pre-Sedation Airway Assessment Smoking Status: Current every day smoker Hx Sleep Apnea: Yes (cpap at night) Short, Thick Neck: Yes Thyromental Distance: > or= 3.5 Finger Breadths Oral Cavity: + WNL Mallampati Class: II ASA: ASA3 NPO Status Date of Last Intake of Fluids: 05/23/20 Time of Last Intake of Fluids: 08:00 Date of Last Intake of Solid Food: 05/15/20 Time of Last Intake of Solid Foods: 23:00 Procedure Planning Contraindications for Sedation: none Current Medications Reviewed: Yes Notes The planned sedation has been discussed with the patient. Informed Consent was obtained. I have identified the patient, determined the appropriateness of sedation and have assessed the patient immediately prior to the procedure. All medicine(s) and interventions are by my order.
[2020-05-23] MEDS: MIDAZOLAM HCL 1 MG/ML 2ML VIAL ONE ×2 (12:17→13:44)
[2020-05-23] MEDS: fentaNYL citrate 100 MCG/2 ML VIAL ONE ×2 (12:17→13:41)
[2020-05-23] MEDS ORDERED: VISIPAQUE IV PRN (13:00)
[2020-05-23] MEDS ORDERED: LIDOCAINE HCL 1% 20 ML VIAL IV STA (13:00)
[2020-05-23] MEDS ORDERED: HEPARIN SOD (PORCINE) 1000 UNIT/ML ONE (13:09)
--- NOTE | 2020-05-23 13:10 | Procedure Note ---
Angiogram Post Procedure Fluoroscopy Time (minutes): 8.8 Conscious Sedation Time (minutes): 53 Radiation (mGy): 121 Contrast: 85 Post Operative Report Pre & Post Diagnosis Operation Date: 05/23/20 10:40 Pre-Op Diagnosis: Non healing wound of right leg , intrapopliteal occulsive disease Post-Op Diagnosis: Non healing wound of right leg , intrapopliteal occulsive disease I identified the patient and participated in the time-out.: Yes Procedure Operation Date: 05/23/20 10:40 Actual Procedures p Right Leg Arteriogram, Percutaneous Transluminal Angioplasty of Posterior Tibial artery, Mechanical clousure of left femoral artery, Moderate Sedation [id number](Left) - Clark Reynolds MD Surgeon Clark Reynolds MD Grinding Mill Operator none Estimated Blood Loss 10 Findings Consistent with Post-Op Diagnosis Specimens none Anesthesia Type RN Sedation Complications none Disposition Accompanied Patient To Recovery: No Disposition: Recovery Room Indications This is a 64-year-old gentleman with nonhealing ulcer right foot. He was found to have severe stenosis of all the infrapopliteal vessels of his right lower extremity. Arteriography with possible intervention was recommended. I have discussed the risks options and benefits of the procedure with the patient. The patient understands the risks options and benefits and agrees to the procedure. Description of Procedure The patient was taken to the angiogram suite and placed in the supine position. The groins were prepped and draped in a sterile manner. Timeout was performed and the patient was identified. Local was administered to the left groin. Percutaneous puncture was made of the left common femoral artery 035 wire was inserted and 5 Surinamese sheath was inserted over the wire. Using an 035 Glidewire and rim catheter right side was cannulated from the left side. The rim was passed down into the common iliac artery. Hand-injection done showed that the common iliac internal/external iliac arteries are widely patent as well as the common femoral artery and the superficial femoral artery and profundofemoral artery origins. The guidewire was then reinserted and the rim cath was passed down to the proximal superficial femoral artery. Right lower extremity angio was then completed. The superficial femoral artery popliteal and trifurcation main trunk were widely patent. Anterior tibial was patent proximally but had multiple areas of occlusions distally. The posterior tibial artery had severe stenoses in the midportion and distally. Peroneal had a moderate stenosis in the midportion and gave a collateral to the pedal the posterior tibial. It was decided to try to treat the posterior tibial artery and increase the flow. Using an 035 stiff Glidewire the 5 Sur[place]amese sheath was exchanged to a 6 Surinamese destination. Patient was heparinized. The 035 wire was removed. An 014 command wire was used. This was done in conjunction with a 4 [place]amese angled glide catheter. Posterior tibial artery in the right side was then cannulated. The wire was advanced down past the ankle. Hand-injection at that time confirmed the positioning. The glide catheter was removed. We then used a 2.5 x 200 balloon. The posterior tibial was dilated in its entirety. An injection at that point showed a slight residual stenosis distally. The area was then reballooned the 14 dionte. Balloon wire were pulled back. Good flow was seen through the posterior tibial artery at that point. No residual stenosis was noted. It was decided not to treat the peroneal artery being that it was only a moderate stenosis. The wire was removed. The sheath was pulled back to the left side. Hand-injection showed the puncture site to be on the common femoral artery. An 035 wire was then reinserted and the sheath removed. A Star closure device was used to close the puncture site in the left groin. Adequate stasis was then noted. Sterile dressings were applied.The patient left the operation room in satisfactory condition and tolerated the procedure well. All needle and sponge counts were correct at the end of the procedure. I attest to the content of the Intraoperative Record and any orders documented therein. Any exceptions are noted below.
--- NOTE | 2020-05-23 13:31 | Post Anesthesia Assessment ---
Date of Service May 23, 2020 Post Sedation Assessment Vital Signs Temp Pulse Pulse Pulse Resp BP BP 05/23/20 13:10 74 18 138/72 05/23/20 13:05 62 18 139/64 05/23/20 13:03 62 18 123/64 05/23/20 12:53 57 L 18 139/67 05/23/20 12:48 56 L 18 131/68 05/23/20 12:43 58 L 18 143/60 H 05/23/20 12:38 57 L 18 131/69 05/23/20 12:33 62 18 160/73 H 05/23/20 12:28 61 18 167/74 H 05/23/20 12:23 66 18 164/78 H 05/23/20 12:18 77 18 168/64 H 05/23/20 12:16 65 18 170/76 H 05/23/20 11:43 36.7 C 62 20 166/72 H 05/23/20 11:20 36.7 C 61 18 168/67 H 05/23/20 07:52 36.9 C 67 16 154/73 H 05/23/20 07:00 64 05/23/20 03:38 36.9 C 81 20 159/81 H 05/23/20 01:59 82 05/22/20 23:32 36.8 C 81 20 166/75 H 05/22/20 22:23 81 23 05/22/20 20:29 36.6 C 140/63 05/22/20 19:57 36.6 C 70 18 169/68 H 05/22/20 16:42 75 05/22/20 15:53 36.6 C 64 18 160/74 H 05/22/20 15:02 59 L 147/68 H 05/22/20 14:40 58 L 135/61 05/22/20 14:20 58 L 130/61 05/22/20 14:02 57 L 133/65 05/22/20 13:40 58 L 143/70 H Pulse Ox 05/23/20 13:10 95 05/23/20 13:05 96 05/23/20 13:03 100 05/23/20 12:53 100 05/23/20 12:48 97 05/23/20 12:43 98 05/23/20 12:38 99 05/23/20 12:33 99 05/23/20 12:28 100 05/23/20 12:23 100 05/23/20 12:18 100 05/23/20 12:16 100 05/23/20 11:43 96 05/23/20 11:20 94 05/23/20 07:52 96 05/23/20 07:00 05/23/20 03:38 98 05/23/20 01:59 05/22/20 23:32 95 05/22/20 22:23 93 05/22/20 20:29 05/22/20 19:57 94 05/22/20 16:42 05/22/20 15:53 95 05/22/20 15:02 05/22/20 14:40 05/22/20 14:20 05/22/20 14:02 05/22/20 13:40 Recovery Score Activity: Moves 4 extremities Respiration: Deep Breath/Cough Circulation: +/-20% PreAnes Value Consciousness: Fully Awake Oxygen Saturation: > 92% On Room Air Post Anesthesia Score: 10 Discharge Sedation Level of Care: Fast Track Phase II Post Sedation Plan On clinical assessment, the patient appears to have tolerated the sedation without complications. Patient is recovering as anticipated. Patient will continue to be monitored by nursing and may be discharged when sedation discharge criteria are met per below protocol. Upon Completions of procedure up to 15 minutes continue every 5 minute vital signs and the P.A.R. score; then discharge to a Phase I or Fast Track to Phase II per the following guidelines: * Discharge Patient to appropriate Phase II area if PAR is 8 or greater or return to pre- procedure baseline. The post - procedure orders will be as directed. * If PAR score is less than 8 or not return to pre-procedure baseline then patient will follow Phase I monitoring till PAR is reached for Phase II. The Phase I may be done in procedure room or may call to secure a Phase I area. * If naloxone or flumazenil are used for reversal, hold in Phase I for continued monitoring from when last reversal dose was given for a minimum of 60 minutes or longer pending the nurse and/or physician discretion of patient condition before discharge to Phase II. Please call the Sedation Physician to re-evaluate and complete post-note for discharge to Phase II area. Do NOT discharge from procedure sedation or Phase 1 until post- sedation evaluation note is complete by procedure /sedation MD Sedation Discharge Instructions to be given to the patient at discharge to home.
--- NOTE | 2020-05-23 13:51 | Nephrology Progress Note ---
Date of Service May 23, 2020 Assessment & Plan (1) End-stage kidney disease: HD TTS. Completed treatment yesterday without complications. EDW 112.5 kg. Clearances acceptable. Qb has been at goal. AVF functioning well. Volume status controlled. BP acceptable. Renal diet. Medications appropriately dosed for kidney function. Resume outpatient treatment at [facility] as scheduled post discharge. (2) Secondary hyperparathyroidism of renal origin: Low PO4 diet. Binder with meals. (3) Anemia in chronic kidney disease: Epogen 18794 units provided 05/22. Admission and Anticipated Discharge Date Admission Date: May 14, 2020 Subjective No acute events overnight. Sebastián was seen and evaluated in his room this morning. He felt well. No fevers or chills. No pain. Review of Systems Review of Systems: All systems reviewed & are unremarkable except as noted in HPI & below Physical Exam Constitutional: well developed; no acute distress Eyes: no scleral abnormality and no corneal abnormality ENMT: Mouth: no oral mucosal abnormality and oral mucous membranes not dry Neck: normal visual inspection and trachea midline Respiratory: normal respiratory effort Auscultation: lungs clear to auscultation bilaterally Cardiovascular: Rate/Rhythm: regular rate Heart Sounds: normal S1 and normal S2 Extremities: + AV fistula; no edema Musculoskeletal: Extremities: no cyanosis and no clubbing Skin: normal turgor; no lesions Neurologic: Motor/Sensory: no tremor and no asterixis Psychiatric: Orientation: alert and oriented x 3 Results & Data ([facility]) Vital Signs (Past 12 Hours) Vital Signs Temp Pulse Pulse Pulse Resp BP Pulse Ox 05/23/20 13:10 74 18 138/72 95 05/23/20 13:05 62 18 139/64 96 05/23/20 13:03 62 18 123/64 100 05/23/20 12:53 57 L 18 139/67 100 05/23/20 12:48 56 L 18 131/68 97 05/23/20 12:43 58 L 18 143/60 H 98 05/23/20 12:38 57 L 18 131/69 99 05/23/20 12:33 62 18 160/73 H 99 05/23/20 12:28 61 18 167/74 H 100 05/23/20 12:23 66 18 164/78 H 100 05/23/20 12:18 77 18 168/64 H 100 05/23/20 12:16 65 18 170/76 H 100 05/23/20 11:43 36.7 C 62 20 166/72 H 96 05/23/20 11:20 36.7 C 61 18 168/67 H 94 05/23/20 07:52 36.9 C 67 16 154/73 H 96 05/23/20 07:00 64 05/23/20 03:38 36.9 C 81 20 159/81 H 98 05/23/20 01:59 82 Laboratory Results Laboratory Results - last 24 hr 05/22/20 05/22/20 05/23/20 16:07 20:27 07:30 POC Glucose 125 H 184 H 137 H 05/23/20 11:27 POC Glucose 125 H PG Care Time/CCT Total # of Minutes Spent Total Time Spent with Patient: Total time spent is greater than 50% in coordination of care (as documented) at patient's floor/unit and/or counseling patient: Coding Level of Care Code 25329 Subseq Hosp Care Lvl 3 Diagnoses End-stage kidney disease N18.6 Secondary hyperparathyroidism of renal origin N25.81 Anemia in chronic kidney disease N18.6; D63.1; Z99.2 Chronic kidney disease stage: on chronic dialysis (1) Anemia in chronic kidney disease Chronic kidney disease stage: on chronic dialysis Qualified Code(s): N18.6 - End stage renal disease; D63.1 - Anemia in chronic kidney disease; Z99.2 - Dependence on renal dialysis
[2020-05-23] MEDS ORDERED: CLOPIDOGREL BISULFATE 300 MG TAB PO ONE (14:00)
[2020-05-23] MEDS: ESCITALOPRAM OXALATE 10 MG TAB PO SCH (14:25)
--- NOTE | 2020-05-23 14:28 | Orthopedic Progress Note ---
Date of Service May 23, 2020 Assessment & Plan (1) Open wound of heel: Patient seen in conjunction with wound care nurses and Dr. Vela. He's been having a wound vac on right heel. Would recommend to continue wound vac and wound vac changes every Tuesday, tuesday and tuesday. Continue offloading shoe right foot. Elevation as needed Antibiotics as per primary service Will continue to follow in hospital and will plan to eval on Tuesday for wound vac change if he's still in the hospital. Okay for discharge to home from ortho standpoint when medical and vascularly stable. Will plan to follow up with him next week and will coordinate a home health visit after Dr. Vela's appointment for wound vac application. Appointment scheduled with Dr. Vela on 05/28/20 at 11:30 a.m. Admission and Anticipated Discharge Date Admission Date: May 14, 2020 Subjective Doing well, no complaints of pain. S/P vascular procedure this afternoon. Physical Exam Physical Exam: Right foot wound vac removed, wounds of right foot appear to be healing well with health granulation tissue and active bleeding. Sloughed skin removed with curette by Dr. Vela, peeling skin also removed, posterior tibial pulse now palpable 1+. Wound vac applied to right heel. Other wounds right foot also healing. New dressings applied. No edema right foot. Results & Data ([facility]) Vital Signs (Past 12 Hours) Vital Signs Temp Pulse Pulse Pulse Resp BP Pulse Ox 05/23/20 14:15 36.6 C 60 16 165/70 H 95 05/23/20 14:00 36.7 C 60 16 165/74 H 93 05/23/20 13:45 36.7 C 60 16 155/65 H 96 05/23/20 13:40 58 L 05/23/20 13:30 36.5 C 61 16 154/70 H 94 05/23/20 13:10 74 18 138/72 95 05/23/20 13:05 62 18 139/64 96 05/23/20 13:03 62 18 123/64 100 05/23/20 12:53 57 L 18 139/67 100 05/23/20 12:48 56 L 18 131/68 97 05/23/20 12:43 58 L 18 143/60 H 98 05/23/20 12:38 57 L 18 131/69 99 05/23/20 12:33 62 18 160/73 H 99 05/23/20 12:28 61 18 167/74 H 100 05/23/20 12:23 66 18 164/78 H 100 05/23/20 12:18 77 18 168/64 H 100 05/23/20 12:16 65 18 170/76 H 100 05/23/20 11:43 36.7 C 62 20 166/72 H 96 05/23/20 11:20 36.7 C 61 18 168/67 H 94 05/23/20 07:52 36.9 C 67 16 154/73 H 96 05/23/20 07:00 64 05/23/20 03:38 36.9 C 81 20 159/81 H 98
--- NOTE | 2020-05-23 16:32 | Billing Data ---
Date of Service May 23, 2020 Coding Level of Care Code 41547 Subseq Hosp Care Lvl 3
[2020-05-23] MEDS: GABAPENTIN 300 MG CAP PO SCH (22:40)
[2020-05-23] MEDS: amLODIPine BESYLATE 5 MG TAB PO SCH (22:40)
[2020-05-23] MEDS: ASPIRIN 81 MG ECTAB PO SCH (22:46)
[2020-05-24] MEDS: cefTRIAXone SODIUM 2,000 MG in DEXTROSE 5% 50 ML IV SCH (03:30)
[2020-05-24] MEDS: LEVOTHYROXINE SODIUM 125 MCG TABLET PO SCH (05:43)
[2020-05-24] MEDS: HEPARIN SOD 5,000 UNIT/0.5 ML VIAL SQ SCH ×2 (05:43→15:12)
[2020-05-24 06:26] LABS: Hematocrit (blood only) 29.7 % (42-52); Hemoglobin 9.7 g/dL (14.0-18.0)
[2020-05-24 07:11] LABS: Albumin Level 2.5 gm/dl (3.4-5.0); BUN Creatinine Ratio 4.8 (10-20); Creatinine Clr Calc Pharmacy 13.1 ml/min; Est GFR (African American) 8.5; Est GFR (Non-African American) 7.3; Phosphorus 6.4 mg/dl (2.5-4.9); Potassium 4.8 mmol/L (3.5-5.1)
[2020-05-24] MEDS: INSULIN ASPART 100 UNITS/ML 3 ML PEN SC SCH ×3 (08:24→17:05)
[2020-05-24] MEDS: carvediloL 6.25 MG TAB PO SCH (08:25)
[2020-05-24] MEDS: busPIRone 5 MG TAB PO SCH (08:25)
[2020-05-24] MEDS: INSULIN GLARGINE SOLOSTAR 100 UNITS/ML 3 ML PEN SC SCH (08:27)
[2020-05-24] MEDS: ESCITALOPRAM OXALATE 10 MG TAB PO SCH (08:27)
[2020-05-24] MEDS: LOSARTAN POTASSIUM 50 MG TAB PO SCH (08:27)
[2020-05-24] MEDS ORDERED: CLOPIDOGREL BISULFATE 75 MG TAB PO SCH (09:00)
--- NOTE | 2020-05-24 11:09 | Nephrology Progress Note ---
Date of Service May 24, 2020 Assessment & Plan (1) End-stage kidney disease: * HD today: 3K bath, EDW 112.5 kg. HD RN notified * Renal diet, adjust all medications for EGFR < 15 cc/min * Resume TTS HD at [facility] following discharge (2) Secondary hyperparathyroidism of renal origin: * Will resume Phos-Lo two capsules w/ each meal (3) Anemia in chronic kidney disease: * Epogen 94457 units provided 05/22. (4) Peripheral arterial disease: * R heel ulcer * s/p BENCH REPAIR TECHNICIAN of R posterior tibial artery 05/[address] Reynolds Admission and Anticipated Discharge Date Admission Date: May 14, 2020 Subjective Mr. Patiño was seen & examined in his hospital room this morning. He denied fever, angina, dyspnea or uremic symptoms. He is scheduled for inpatient HD later this morning. Review of Systems Constitutional: no fever Eyes: no problem reported Ear, Nose, Mouth, Throat: no problem reported Respiratory: no dyspnea Cardiovascular: no chest pain, no palpitations and no edema Gastrointestinal: no abdominal pain Musculoskeletal: no back pain Integumentary: no rash Neurologic: no confusion Physical Exam Constitutional: no acute distress Eyes: no scleral abnormality and no corneal abnormality ENMT: Mouth: no oral mucosal abnormality Neck: normal visual inspection and trachea midline Respiratory: normal respiratory effort Auscultation: lungs clear to auscultation bilaterally Cardiovascular: Rate/Rhythm: regular rate Heart Sounds: normal S1 and normal S2 Extremities: + AV fistula (+ bruit); no edema Musculoskeletal: Extremities: no cyanosis and no clubbing Psychiatric: Orientation: alert and oriented x 3 Results & Data ([facility]) Vital Signs (Past 12 Hours) Vital Signs Temp Pulse Pulse Pulse Resp BP Pulse Ox 05/24/20 08:25 68 05/24/20 07:30 36.4 C L 59 L 16 138/61 97 05/24/20 07:14 79 05/24/20 03:15 54 L 16 94 05/24/20 03:04 36.5 C 60 18 151/73 H 93 05/23/20 23:08 36.6 C 65 16 163/76 H 92 Laboratory Tests 05/22/20 05/24/20 05/24/20 06:49 06:08 06:08 Hgb 9.6 L 9.7 L Sodium 134 L Potassium 4.8 Chloride 98 Carbon Dioxide 27 BUN 34 H Creatinine 7.16 H* D Glucose 134 H Phosphorus 6.4 H Albumin 2.5 L PG Care Time/CCT Total # of Minutes Spent Total Time Spent with Patient: Total time spent is greater than 50% in coordination of care (as documented) at patient's floor/unit and/or counseling patient: Coding Level of Care Code 70918 Subseq Hosp Care Lvl 3 Diagnoses End-stage kidney disease N18.6 Secondary hyperparathyroidism of renal origin N25.81 Anemia in chronic kidney disease N18.6; D63.1; Z99.2 Chronic kidney disease stage: on chronic dialysis Peripheral arterial disease I73.9 (1) Anemia in chronic kidney disease Chronic kidney disease stage: on chronic dialysis Qualified Code(s): N18.6 - End stage renal disease; D63.1 - Anemia in chronic kidney disease; Z99.2 - Dependence on renal dialysis
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
[2020-05-24] MEDS: CALCIUM ACETATE 667 MG CAP/TAB PO SCH ×2 (14:38→17:05)
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
--- NOTE | 2020-05-24 18:49 | Billing Data ---
Date of Service May 24, 2020 Coding Level of Care Code D/C Day Management <30 mins
== END 2020-05-24 18:44 | disposition home health service (06) | DRG 853 ==
LOC: EDBD → ED 20:16 → MERGE 20:16 → SUATTDRO 23:39 → 2W 23:39

== ENCOUNTER 2021-01-05 19:27 | Inpatient (IN) ==
[2021-01-05] MEDS ORDERED: SODIUM CHLORIDE 0.9% 1000ML 1,000 ML IV SCH (20:00)
[2021-01-05 20:09] LABS: Basophils # (auto) 0.04 K/uL (0-0.2); Basophils % (auto) 0.4 %; Eosinophils # (auto) 0.07 K/uL (0-0.5); Eosinophils % (auto) 0.6 %; Hematocrit (blood only) 32.8 % (42-52); Hemoglobin 10.8 g/dL (14.0-18.0); Immature Granulocytes # (auto) 0.04 K/uL (0.00-0.02); Immature Granulocytes % (auto) 0.4 %; Lymphocytes % (auto) 9.7 %; Mean Corpuscular Hgb Conc 32.9 g/dL (32-36); Mean Corpuscular Volume 97.3 fL (80-100); Mean Platelet Volume 10.1 fL (7.4-10.4); Monocytes # (auto) 0.63 K/uL (0.11-0.59); Monocytes % (auto) 5.6 %; Neutrophils # (auto) 9.45 K/uL (1.4-6.5); Neutrophils % (auto) 83.3 %; Platelet Count 219 K/uL (130-400); RDW Coefficient of Variation 13.6 % (11.5-14.5); RDW Standard Deviation 48.2 fL (36.4-46.3); Red Blood Count 3.37 M/uL (4.7-6.1); White Blood Count 11.33 K/uL (4.8-10.8)
--- NOTE | 2021-01-05 20:35 | CT Scan Report ---
CT OF THE HEAD WITHOUT CONTRAST CLINICAL HISTORY: Altered mental status. COMPARISON STUDY: Head CT July 21, 2020. CT DOSE: 884.08 mGy.cm TECHNIQUE: Helical axial images of the head were obtained without IV contrast. Automated exposure con trol was utilized for the study. A dose lowering technique was utilized adhering to the principles o f ALARA. FINDINGS: No acute intracranial hemorrhage, midline shift or mass effect is present. The ventricular system is unremarkable. White matter hypodensities favor small vessel disease. Hyperdensity within th e brainstem on axial image is similar to CT of May 14, 2020. The basal cisterns are nance nt. No extra-axial collections are present. There are no findings to suggest acute dural sinus thromb osis or acute territorial infarct. No significant calvarial abnormalities are present. There is trace fluid within the bilateral mastoid air cells. Mild polypoid mucosal thickening of the left maxillary sinus is present. IMPRESSION: No acute intracranial findings. No change in appearance of the brain. ACT 112: Negative or not required by law. Electronically signed by: Quentin Morales M.D. 01/05/2021 8:34 PM
[2021-01-05 20:38] LABS: Alanine Aminotransferase 14 U/L (12-78); Albumin Globulin Ratio 0.7 (0.9-2); Alkaline Phosphatase 73 U/L (45-117); Aspartate Aminotransferase 9 U/L (15-37); BUN Creatinine Ratio 6.2 (10-20); Bilirubin,Total 0.5 mg/dl (0.2-1); Blood Urea Nitrogen 53 mg/dl (7-18); Calcium 9.4 mg/dl (8.5-10.1); Carbon Dioxide 30 mmol/L (21-32); Chloride 98 mmol/L (98-107); Creatinine Clr Calc Pharmacy 11.7 ml/min; Est GFR (African American) 6.8 ml/min; Est GFR (Non-African American) 5.9 ml/min; Globulin 4.6 gm/dl (2.5-4.0); Glucose 168 mg/dl (70-99); Magnesium 2.3 mg/dl (1.8-2.4); Phosphorus 3.9 mg/dl (2.5-4.9); Potassium 6.2 mmol/L (3.5-5.1); Sodium 137 mmol/L (136-145); Total Protein 7.6 gm/dl (6.4-8.2); Troponin I < 0.015 ng/ml (0-0.045)
--- NOTE | 2021-01-05 20:43 | CT Scan Report ---
CT OF THE ABDOMEN AND PELVIS WITHOUT CONTRAST CLINICAL HISTORY: Abdominal pain. COMPARISON STUDY: CT of the abdomen and pelvis February 08, 2020. TECHNIQUE: Axial images of the abdomen and pelvis were obtained without IV contrast. Images were revi ewed in the axial, sagittal, and coronal planes. Automated exposure control was utilized for the daniel dy. A dose lowering technique was utilized adhering to the principles of ALARA. FINDINGS: Visualized portions of the lower chest demonstrate a trace left pleural effusion. Subpleura l left lower lobe opacity is partially imaged on this exam but similar to prior study. This favors ro und atelectasis. The left pleural effusion has decreased in size since CT of February 08, 2020. Please note that the chest CT will be reported separately. Cardiomegaly is noted. There is a trace right pl eural effusion. No pneumatosis, free air or portal venous gas is present. Evaluation of the abdomen a nd pelvis is suboptimal on this unenhanced exam. Unenhanced images of the liver, spleen, adrenal glan ds and pancreas are unremarkable. There is no hydronephrosis. Water attenuation bilateral renal lesio ns are suboptimally assessed on this unenhanced exam but favor cysts. Calcifications within each alessandra l sinus are probably vascular in etiology. No ureteral calculi are present. There is no evidence for a bowel obstruction. Colonic diverticulosis is noted without evidence for acute diverticulitis. The a ppendix is unremarkable. No acute fracture or suspicious lesion is identified within the visualized s keletal structures. There is no fluid collection to suggest an abscess. No free air. IMPRESSION: 1. No acute process within the abdomen or pelvis on unenhanced exam. 2. No bowel obstruction. 3. Colonic diverticulosis without evidence for acute diverticulitis. ACT 112: Negative or not required by law. Electronically signed by: Quentin Morales M.D. 01/05/2021 8:42 PM
[2021-01-05] MEDS ORDERED: CALCIUM GLUCONATE 10% 1,000 MG in SODIUM CHLORIDE 0.9% 50 ML IV STA (20:47)
[2021-01-05] MEDS ORDERED: CEFEPIME 2,000 MG/20 ML VIAL IV STA (20:49)
[2021-01-05] MEDS ORDERED: CALCIUM GLUCONATE 1000 MG/60 ML NSS IV ONE (20:53)
--- NOTE | 2021-01-05 20:53 | CT Scan Report ---
CT OF THE CHEST WITHOUT IV CONTRAST CLINICAL HISTORY: Altered mental status. COMPARISON STUDY: Chest CT June 01, 2006. Chest radiograph July 22, 2020. TECHNIQUE: Axial images of the chest were obtained without IV contrast. Images were reviewed in the axial, sagittal, and coronal planes. IV contrast was not administered for this examination. Automat ed exposure control was utilized for the study. A dose lowering technique was utilized adhering to t he principles of ALARA. FINDINGS: There are several mildly enlarged mediastinal lymph nodes. Index precarinal lymph node on image 101 of 281 measures 1.4 cm in short axis diameter. There is moderate cardiomegaly. No pericardi al effusion is present. There is no pneumothorax. There is mild left pleural thickening and trace lef t pleural fluid. Moderate left lung volume loss is noted. There are multiple subpleural mass-like opa cities within the left lung, including a 6.3 cm left lower lobe opacity and a 5.2 cm lingular opacity . These are new since chest CT of June 01, 2006. Additional subpleural opacities within the apico posterior segment of the left upper lobe are noted. Lungs are suboptimally assessed due to respirator y motion. Note is made of groundglass opacities throughout the lungs. There is no consolidation to cruz ggest pneumonia. No acute fracture or suspicious lesion is identified within visualized portions of t he bony parts. The abdomen and pelvis will be reported separately. IMPRESSION: 1. Moderate left lung volume loss with several subpleural mass-like opacities with associated pleural thickening and trace left pleural fluid. The subpleural opacities favor round atelectasis. However, a follow-up chest CT in 3 months is recommended to exclude the less likely possibility of an underlyi ng mass. 2. Groundglass opacities throughout the lungs. These may reflect pulmonary edema or an infectious pro cess. 3. Moderate cardiomegaly. 4. Several mildly enlarged mediastinal lymph nodes which are indeterminate but not highly suspicious. This can be assessed on follow-up chest CT. ACT 112: Negative or not required by law. Electronically signed by: Quentin Morales M.D. 01/05/2021 8:52 PM
--- NOTE | 2021-01-05 21:22 | Emergency Department Note ---
History of Present Illness General Chief complaint: Illness Stated complaint: Illness Time Seen by Provider: 01/05/21 19:30 Source: patient Mode of arrival: ambulatory Limitations: no limitations History of Present Illness Provider complaint: unresponsive Treatments prior to arrival: other This is a 65-year-old male brought in by EMS after being found unresponsive by family in his house who contacted 911. EMS states on their arrival, patient had fever of 102, and was hypoxic in the 70s. He was placed on a facemask with oxygen and sats came up into the 90s. Patient was given Tylenol in route and by arrival here temperature was down to 99. Patient does have history of dialysis. Patient has multiple other medical problems and comorbidities. They state patient became more alert in route with improved oxygenation. Patient can answer simple yes/no questions but does not recall recent events leading up to his condition today. For me patient states he has abdominal pain and nausea, denies chest pain, headaches, vomiting, or diarrhea. He states he does not make urine any longer. States he did go to dialysis on Tuesday and would be due again tomorrow. Pt seen during a time of high acuity and national emergency pandemic while wearing PPE. Home Medications Medication Instructions Recorded Confirmed Type amlodipine 10 mg tablet 10 mg PO HS #90 tab 06/26/20 01/05/21 Rx aspirin 81 mg chewable tablet 81 mg PO HS #90 tab 06/26/20 01/05/21 Rx buspirone 10 mg tablet 10 mg PO BID #180 tab 06/26/20 01/05/21 Rx escitalopram oxalate 10 mg tablet 10 mg PO DAILY #90 tab 06/26/20 01/05/21 Rx furosemide 80 mg tablet (Lasix) 80 mg PO BID #180 tab 06/26/20 01/05/21 Rx gabapentin 100 mg capsule 300 mg PO HS #270 cap 06/26/20 01/05/21 Rx levothyroxine 125 mcg tablet 125 mcg PO DAILYBB #90 tab 06/26/20 01/05/21 Rx losartan 50 mg tablet 50 mg PO DAILY #90 tab 06/26/20 01/05/21 Rx nitroglycerin 0.4 mg sublingual 0.4 mg SUBLINGUAL DIRECTED PRN 07/11/20 01/05/21 History tablet FreeStyle Virgil 14 Day Sensor #6 ea NS 07/14/20 11/03/20 Rx (flash glucose sensor) FreeStyle Virgil 14 Day [place] #1 ea NS 07/15/20 11/03/20 Rx (flash glucose scanning reader) KHADAR LIFT #1 ea 08/14/20 11/03/20 Rx prochlorperazine maleate 10 mg 10 mg PO Q8H PRN #20 tab 09/15/20 01/05/21 Rx tablet (Compazine) albuterol sulfate 90 mcg/actuation 1 inh INHALATION QID PRN #6.7 g 10/29/20 01/05/21 Rx aerosol inhaler (ProAir HFA) carvedilol 12.5 mg tablet 12.5 mg PO BID #60 tab 11/06/20 01/05/21 Rx omeprazole 20 mg capsule,delayed 20 mg PO DAILY #30 cap 11/06/20 01/05/21 Rx release cholecalciferol (vitamin D3) 1,250 See Rx Instructions .ROUTE 11/07/20 01/05/21 Rx mcg (50,000 unit) capsule .COMPLEX #25 cap simvastatin 20 mg tablet 20 mg PO QPM #30 tab 11/07/20 01/05/21 Rx calcium carbonate 500 mg calcium 500 mg PO 3XWK #36 tab 11/27/20 01/05/21 Rx (1,250 mg) tablet (Calcium 500) calcium acetate(phosphat bind) 667 2,001 mg PO TIDM 01/05/21 01/05/21 History mg tablet insulin glargine 100 unit/mL 16 unit SUBCUT QAM 01/05/21 01/05/21 History subcutaneous solution (Lantus U-100 Insulin) loperamide 2 mg capsule (Imodium 2 mg PO DIRECTED PRN 01/05/21 01/05/21 History A-D) Allergies Allergy/AdvReac Type Severity Reaction Status Date / Time lactose Allergy Intermediate Gastrointestinal Verified 01/05/21 20:16 Upset Past Med/Surg History Medical History Acute hyperkalemia Anemia in chronic kidney disease Anxiety Cellulitis of leg, right Dyslipidemia GERD (gastroesophageal reflux disease) Left lower lobe pneumonia LLL pneumonia On home oxygen therapy 2L n/c with cpap at Osteoarthritis Peripheral arterial disease Peripheral neuropathy bilt legs/feet Pleural effusion, left Secondary hyperparathyroidism of renal origin Sepsis Surgical History History of bilateral cataract extraction History of cardiac cath 01/2018 "about 2-3 weeks"; no stents placed @ [facility] by Dr. Coronel History of carpal tunnel release R wrist History of colonoscopy History of repair of anterior cruciate ligament of left knee History of repair of anterior cruciate ligament of right knee History of tonsillectomy History of tooth extraction wisdom teeth Family History Mother Family history of diabetes mellitus Grandmother Family history of diabetes mellitus maternal Other Colorectal cancer Inflammatory bowel disease Melanoma Social History Smoking Status: Current every day smoker Tobacco Type: Cigarettes Cigarettes Per Day: 15 a day; Second Hand Exposure: Yes; Hx Alcohol Use: No Hx Substance Use: No Preferred Language: Polish Communication Ability: Effective [employer] Required: No Beliefs That Will Affect Care: None marital status: Single Current Living Situation: Family Current Living Situation Comment: [facility] How many Children do You have: 2 Feels Safe at Home: Yes Seatbelt Use: always Assistive Devices: Wheelchair Review of Systems A total of 10 systems reviewed and were otherwise negative All systems reviewed & are unremarkable except as noted in HPI & below Physical Exam Vital Signs Vital Signs - 24 hr 01/05/21 20:00 01/05/21 20:01 01/05/21 20:36 Temperature 37.7 C H 37.7 C H Temperature Source Oral Oral Pulse Rate 70 Pulse Rate [Right Finger] 74 Respiratory Rate 24 25 H Respiratory Effort / Characteristics Grunting Grunting Grunting Respiratory Depth Deep Respiratory Pattern Grunting Grunting Blood Pressure 137/60 Blood Pressure [Right Arm] 153/65 H Blood Pressure Mean 85 Blood Pressure Mean [Right Arm] 94 Pulse Oximetry 96 96 100 Oxygen Delivery Method Non-rebreather Non-rebreather Oxymask Oxygen Flow Rate 10 10 8 Sepsis Recent Fever Within 48 Hours Yes Sepsis New/Unexplained Change in Mental Status Yes Sepsis Action Taken by Nursing Physician Notified 01/05/21 21:33 01/05/21 23:00 Temperature Temperature Source Pulse Rate Pulse Rate [Right Finger] 68 65 Respiratory Rate 24 17 Respiratory Effort / Characteristics Non-Labored Respiratory Depth Normal Respiratory Pattern Blood Pressure Blood Pressure [Right Arm] 128/56 L 129/61 Blood Pressure Mean Blood Pressure Mean [Right Arm] 80 83 Pulse Oximetry 95 99 Oxygen Delivery Method Oxymask Oxymask Oxygen Flow Rate 7 2 Sepsis Recent Fever Within 48 Hours Sepsis New/Unexplained Change in Mental Status Sepsis Action Taken by Nursing GENERAL: Somnolent but arousable, unwell appearing, well nourished, BMI>35 EYE EXAM: normal conjunctiva, PERRL and EOM's grossly intact OROPHARYNX: no exudate, no erythema, lips, buccal mucosa, and tongue normal and mucous membranes are moist NECK: supple, no nuchal rigidity, no adenopathy, non-tender LUNGS: Clear to auscultation. Normal chest wall mechanics, no w/r/r HEART: no murmurs, S1 normal and S2 normal ABDOMEN: abdomen soft, non-tender, normo-active bowel sounds, no masses, no rebound or guarding. BACK: Back is symmetrical on inspection and there is no deformity, no midline tenderness, no CVA tenderness. SKIN: no rashes and no bruising UPPER EXTREMITIES: upper extremities are grossly normal. FROM, nml pulses b/l. Graft noted in the proximal left upper extremity with positive thrill. LOWER EXTREMITIES: No pitting edema. FROM, nml pulses b/l. NEURO EXAM: Normal sensorium, cranial nerves II-XII grossly intact, normal speech, no gross weakness of arms, no gross weakness of legs. Gross sensation intact. Course Administered Medications Amlodipine Besylate (Amlodipine Besylate 5 Mg Tab) 10 mg PO HS KATELYNN Stop: 02/05/21 20:59 Last Admin: 01/07/21 21:05 Dose: 10 mg Documented by: [id number] Admin: 01/06/21 19:47 Dose: 10 mg Documented by: [id number] Aspirin (Aspirin 81 Mg Ectab) 81 mg PO HS KATELYNN Stop: 02/05/21 20:59 Last Admin: 01/07/21 21:09 Dose: 81 mg Documented by: [id number] Admin: 01/06/21 19:48 Dose: 81 mg Documented by: [id number] Buspirone HCl (Buspirone 5 Mg Tab) 10 mg PO BID KATELYNN Stop: 02/05/21 08:59 Last Admin: 01/08/21 16:11 Dose: 10 mg Documented by: [id number] Admin: 01/07/21 21:04 Dose: 10 mg Documented by: [id number] Admin: 01/07/21 09:10 Dose: 10 mg Documented by: [id number] Admin: 01/06/21 19:48 Dose: 10 mg Documented by: [id number] Admin: 01/06/21 08:03 Dose: 10 mg Documented by: [id number] Calcium Acetate (Calcium Acetate 667 Mg Cap/Tab) 2,001 mg PO TIDM KATELYNN Stop: 02/05/21 07:59 Last Admin: 01/08/21 16:15 Dose: Not Given Documented by: [id number] Admin: 01/08/21 16:11 Dose: 2,001 mg Documented by: [id number] Admin: 01/07/21 16:18 Dose: 2,001 mg Documented by: [id number] Admin: 01/07/21 11:52 Dose: 2,001 mg Documented by: [id number] Admin: 01/07/21 09:08 Dose: 2,001 mg Documented by: [id number] Admin: 01/06/21 18:29 Dose: 2,001 mg Documented by: [id number] Admin: 01/06/21 12:07 Dose: 2,001 mg Documented by: [id number] Admin: 01/06/21 08:02 Dose: 2,001 mg Documented by: [id number] Carvedilol (Carvedilol 12.5 Mg Tab) 12.5 mg PO BID KATELYNN Stop: 02/05/21 08:59 Last Admin: 01/08/21 16:10 Dose: 12.5 mg Documented by: [id number] Admin: 01/07/21 21:05 Dose: 12.5 mg Documented by: [id number] Admin: 01/07/21 09:11 Dose: Not Given Documented by: [id number] Admin: 01/06/21 19:47 Dose: 12.5 mg Documented by: [id number] Admin: 01/06/21 08:04 Dose: 12.5 mg Documented by: [id number] Escitalopram Oxalate (Escitalopram Oxalate 10 Mg Tab) 10 mg PO DAILY KATELYNN Stop: 02/05/21 08:59 Last Admin: 01/08/21 16:13 Dose: 10 mg Documented by: [id number] Admin: 01/07/21 11:06 Dose: 10 mg Documented by: [id number] Admin: 01/06/21 08:05 Dose: 10 mg Documented by: [id number] Famotidine (Famotidine 40 Mg Tablet) 40 mg PO QAM KATELYNN Stop: 02/05/21 08:59 Last Admin: 01/08/21 16:11 Dose: 40 mg Documented by: [id number] Admin: 01/07/21 09:12 Dose: 40 mg Documented by: [id number] Admin: 01/06/21 08:06 Dose: 40 mg Documented by: [id number] Furosemide (Furosemide 80 Mg Tab) 80 mg PO BIDM KATELYNN Stop: 02/05/21 07:59 Last Admin: 01/08/21 16:11 Dose: 80 mg Documented by: [id number] Admin: 01/07/21 16:17 Dose: 80 mg Documented by: [id number] Admin: 01/07/21 09:09 Dose: 80 mg Documented by: [id number] Admin: 01/06/21 18:29 Dose: 80 mg Documented by: [id number] Admin: 01/06/21 08:03 Dose: 80 mg Documented by: [id number] Gabapentin (Gabapentin 300 Mg Cap) 300 mg PO HS KATELYNN Stop: 02/05/21 20:59 Last Admin: 01/07/21 21:05 Dose: 300 mg Documented by: [id number] Admin: 01/06/21 19:49 Dose: 300 mg Documented by: [id number] Heparin Sodium (Porcine) (Heparin Sod 5,000 Unit/0.5 Ml Vial) 7,500 units SQ Q8 KATELYNN Stop: 02/05/21 03:29 Last Admin: 01/08/21 16:12 Dose: 7,500 units Documented by: [id number] Admin: 01/08/21 05:57 Dose: 7,500 units Documented by: [id number] Admin: 01/07/21 21:06 Dose: 7,500 units Documented by: [id number] Admin: 01/07/21 13:49 Dose: 7,500 units Documented by: [id number] Admin: 01/07/21 06:19 Dose: 7,500 units Documented by: [id number] Admin: 01/06/21 19:49 Dose: 7,500 units Documented by: [id number] Admin: 01/06/21 18:19 Dose: 7,500 units Documented by: [id number] Admin: 01/06/21 05:45 Dose: 7,500 units Documented by: [id number] Azithromycin 250 mg/ Dextrose 252.5 mls @ 125 mls/hr IV DAILY KATELYNN Stop: 01/13/21 08:59 Last Admin: 01/08/21 16:17 Dose: 125 mls/hr Documented by: [id number] Infusion: 01/07/21 11:27 Dose: 0 mls/hr Documented by: [id number] Admin: 01/07/21 09:22 Dose: 125 mls/hr Documented by: [id number] Infusion: 01/06/21 12:00 Dose: 0 mls/hr Documented by: [id number] Admin: 01/06/21 09:45 Dose: 125 mls/hr Documented by: [id number] Cefepime HCl 500 mg/ Syringe 5.65 mls @ 5.5 mls/min IV Q24H KATELYNN; Protocol Stop: 01/13/21 15:59 Last Admin: 01/08/21 16:17 Dose: 5.5 mls/min Documented by: [id number] Admin: 01/07/21 16:14 Dose: 5.5 mls/min Documented by: [id number] Admin: 01/06/21 18:30 Dose: 5.5 mls/min Documented by: [id number] Insulin Aspart (Insulin Aspart 100 Units/Ml 3 Ml Pen) 0 units SC ACHS KATELYNN Stop: 02/05/21 07:29 Last Admin: 01/08/21 16:18 Dose: Not Given Documented by: [id number] Admin: 01/08/21 09:10 Dose: 3 units Documented by: [id number] Cosigned by: [id number] Admin: 01/07/21 20:56 Dose: Not Given Documented by: [id number] Cosigned by: [id number] Admin: 01/07/21 17:04 Dose: 4 units Documented by: [id number] Cosigned by: [id number] Admin: 01/07/21 11:50 Dose: 6 units Documented by: [id number] Cosigned by: [id number] Admin: 01/07/21 09:04 Dose: 2 units Documented by: [id number] Cosigned by: [id number] Admin: 01/06/21 19:48 Dose: Not Given Documented by: [id number] Admin: 01/06/21 18:25 Dose: Not Given Documented by: [id number] Cosigned by: [id number] Admin: 01/06/21 12:03 Dose: 9 units Documented by: [id number] Cosigned by: [id number] Admin: 01/06/21 08:07 Dose: 3 units Documented by: [id number] Cosigned by: [id number] Insulin Glargine (Insulin Glargine Solostar 100 Units/Ml 3 Ml Pen) 16 units SQ QAM [facility] Stop: 02/05/21 08:59 Last Admin: 01/08/21 09:10 Dose: 16 units Documented by: [id number] Cosigned by: [id number] Admin: 01/07/21 09:21 Dose: 16 units Documented by: [id number] Cosigned by: [id number] Admin: 01/06/21 09:46 Dose: 16 units Documented by: [id number] Cosigned by: [id number] Levothyroxine Sodium (Levothyroxine Sodium 125 Mcg Tablet) 125 mcg PO DAILYBB [facility] Stop: 02/05/21 06:29 Last Admin: 01/08/21 05:58 Dose: 125 mcg Documented by: [id number] Admin: 01/07/21 06:19 Dose: 125 mcg Documented by: [id number] Admin: 01/06/21 05:44 Dose: 125 mcg Documented by: [id number] Losartan Potassium (Losartan Potassium 50 Mg Tab) 50 mg PO DAILY [facility] Stop: 02/05/21 08:59 Last Admin: 01/08/21 16:10 Dose: 50 mg Documented by: [id number] Admin: 01/07/21 09:12 Dose: 50 mg Documented by: [id number] Admin: 01/06/21 08:06 Dose: 50 mg Documented by: [id number] Nystatin (Nystatin Powder 15gm Btl) 1 appln EXT TID PRN PRN Reason: rash Stop: 02/04/21 22:31 Last Admin: 01/07/21 09:50 Dose: 1 appln Documented by: [id number] Simvastatin (Simvastatin 20 Mg Tab) 20 mg PO QPM [facility] Stop: 02/05/21 20:59 Last Admin: 01/07/21 21:08 Dose: 20 mg Documented by: [id number] Admin: 01/06/21 19:47 Dose: 20 mg Documented by: [id number] Discontinued Medications Calcium Gluconate (Calcium Gluconate 1000 Mg/60 Ml Nss) Confirm Administered Dose 1,000 mg IV .STK-MED ONE Stop: 01/05/21 20:54 Last Admin: 01/05/21 20:58 Dose: 1,000 mg Documented by: [id number] Epoetin Sebastian (Epoetin Sebastian 10,000 Units/Ml Vial) 10,000 units IV 0700 [facility] Stop: 01/08/21 14:00 Last Admin: 01/08/21 13:05 Dose: Not Given Documented by: [id number] Heparin Sodium (Porcine) (Heparin Sod (Porcine) 1000 Unit/Ml) 2,000 units IV ONE ONE Stop: 01/06/21 15:01 Last Admin: 01/06/21 15:24 Dose: Not Given Documented by: [id number] Heparin Sodium (Porcine) (Heparin Sod (Porcine) 1000 Unit/Ml) 1,000 units IV Q1H [facility] Stop: 01/06/21 17:01 Last Admin: 01/06/21 16:23 Dose: Not Given Documented by: [id number] Admin: 01/06/21 15:25 Dose: Not Given Documented by: [id number] Admin: 01/06/21 15:25 Dose: Not Given Documented by: [id number] Heparin Sodium (Porcine) (Heparin Sod (Porcine) 1000 Unit/Ml) 2,000 units IV ONE ONE Stop: 01/08/21 07:01 Last Admin: 01/08/21 13:05 Dose: Not Given Documented by: [id number] Heparin Sodium (Porcine) (Heparin Sod (Porcine) 1000 Unit/Ml) 1,000 units IV Q1H [facility] Stop: 01/08/21 09:01 Last Admin: 01/08/21 13:07 Dose: Not Given Documented by: [id number] Admin: 01/08/21 13:07 Dose: Not Given Documented by: [id number] Admin: 01/08/21 13:06 Dose: Not Given Documented by: [id number] Sodium Chloride (Nss 1000ml) 1,000 mls @ 999 mls/hr IV .Q1H1M KATELYNN Stop: 01/05/21 21:00 Last Infusion: 01/05/21 21:15 Dose: 0 mls/hr Documented by: [id number] Admin: 01/05/21 20:03 Dose: 999 mls/hr Documented by: [id number] Calcium Gluconate 1,000 mg/ (Sodium Chloride) 60 mls @ 240 mls/hr IV NOW STA Stop: 01/05/21 21:01 Last Admin: 01/05/21 20:58 Dose: Not Given Documented by: [id number] Cefepime HCl (Maxipime) 2,000 mg in 20 mls @ 5 mls/min IV NOW STA; Protocol Stop: 01/05/21 20:52 Last Admin: 01/05/21 20:58 Dose: 5 mls/min Documented by: [id number] Azithromycin 500 mg/ Dextrose 255 mls @ 127.5 mls/hr IV NOW STA Stop: 01/05/21 23:55 Last Infusion: 01/06/21 00:17 Dose: 0 mls/hr Documented by: [id number] Admin: 01/05/21 22:12 Dose: 127.5 mls/hr Documented by: [id number] Critical Care Time Critical Care Time: Yes Total Critical Care Time: 39 Critical care of 39 min performed to assess and manage high likelihood of life- threatening altered mental status, involving labs and imaging performed with assessment to evaluate altered mental status diagnosis with frequent reassessment. This time includes bedside time, treatment discussions with patient/family/consultants, documentation time and excludes procedure time. Medical Decision Making Differential Diagnosis Differential diagnoses includes but is not limited to toxic, metabolic, infecti ous, traumatic, cardiac, neurologic, hematologic, psychiatric and inflammatory etiologies. Medical Records Attestation: I reviewed the patient's medical records. Home Medications Current Medication List: was personally reviewed by me Laboratory Data Attestation: I reviewed the patient's lab results. Result diagrams: 01/08/21 09:27 01/08/21 09:27 Lab Results 01/05/21 01/05/21 01/05/21 Range/Units 19:58 19:58 19:58 WBC 11.33 H (4.8-10.8) K/uL RBC 3.37 L (4.7-6.1) M/uL Hgb 10.8 L (14.0-18.0) g/dL POC Hgb (14.0-18.0) g/dl Hct 32.8 L (42-52) % POC Hct (42-52) % MCV 97.3 (80-100) fL MCH 32.0 (25-34) pg MCHC 32.9 (32-36) g/dL RDW Std Deviation 48.2 H (36.4-46.3) fL RDW Coeff of Jorge A 13.6 (11.5-14.5) % Plt Count 219 (130-400) K/uL MPV 10.1 (7.4-10.4) fL Immature Gran % (Auto) 0.4 % Neut % (Auto) 83.3 % Lymph % (Auto) 9.7 % Divide % (Auto) 5.6 % Eos % (Auto) 0.6 % Baso % (Auto) 0.4 % Neut # (Auto) 9.45 H (1.4-6.5) K/uL Lymph # (Auto) 1.10 L (1.2-3.4) K/uL Divide # (Auto) 0.63 H (0.11-0.59) K/uL Eos # (Auto) 0.07 (0-0.5) K/uL Baso # (Auto) 0.04 (0-0.2) K/uL Immature Gran # (Auto) 0.04 H (0.00-0.02) K/uL Specimen Type POC pH (7.35-7.45) POC pCO2 (35-46) mmHg POC pO2 (80-95) mmHg POC HCO3 (19-24) freeman/L POC Total CO2 (24-31) mmol/L POC Base Excess (-9-1.8) freeman/L POC ABG O2 Sat (90-95) % POC Sodium (135-144) mmol/L Sodium 137 (136-145) mmol/L POC Potassium (3.3-5.0) mmol/L Potassium 6.2 H* (3.5-5.1) mmol/L Chloride 98 (98-107) mmol/L Carbon Dioxide 30 (21-32) mmol/L Anion Gap 7.0 (3-11) BUN 53 H (7-18) mg/dl Creatinine 8.54 H* (0.6-1.4) mg/dl Est Cr Clr Drug Dosing 11.7 ml/min Est GFR ( Amer) 6.8 ml/min Est GFR (Non-Af Amer) 5.9 ml/min BUN/Creatinine Ratio 6.2 L (10-20) Glucose 168 H (70-99) mg/dl Lactate 1.2 (0.4-2.0) mmol/L Calcium 9.4 (8.5-10.1) mg/dl Phosphorus 3.9 (2.5-4.9) mg/dl Magnesium 2.3 (1.8-2.4) mg/dl Total Bilirubin 0.5 (0.2-1) mg/dl AST 9 L (15-37) U/L ALT 14 (12-78) U/L Alkaline Phosphatase 73 (45-117) U/L Troponin I < 0.015 (0-0.045) ng/ml Total Protein 7.6 (6.4-8.2) gm/dl Albumin 3.0 L (3.4-5.0) gm/dl Globulin 4.6 H (2.5-4.0) gm/dl Albumin/Globulin Ratio 0.7 L (0.9-2) Procalcitonin (0-0.5) ng/ml COVID-19 Eval Order SARS-CoV-2 (PCR) (Negative) 01/05/21 01/05/21 01/05/21 Range/Units 20:06 20:51 20:51 WBC (4.8-10.8) K/uL RBC (4.7-6.1) M/uL Hgb (14.0-18.0) g/dL POC Hgb (14.0-18.0) g/dl Hct (42-52) % POC Hct (42-52) % MCV (80-100) fL MCH (25-34) pg MCHC (32-36) g/dL RDW Std Deviation (36.4-46.3) fL RDW Coeff of Jorge A (11.5-14.5) % Plt Count (130-400) K/uL MPV (7.4-10.4) fL Immature Gran % (Auto) % Neut % (Auto) % Lymph % (Auto) % Divide % (Auto) % Eos % (Auto) % Baso % (Auto) % Neut # (Auto) (1.4-6.5) K/uL Lymph # (Auto) (1.2-3.4) K/uL Divide # (Auto) (0.11-0.59) K/uL Eos # (Auto) (0-0.5) K/uL Baso # (Auto) (0-0.2) K/uL Immature Gran # (Auto) (0.00-0.02) K/uL Specimen Type POC pH (7.35-7.45) POC pCO2 (35-46) mmHg POC pO2 (80-95) mmHg POC HCO3 (19-24) freeman/L POC Total CO2 (24-31) mmol/L POC Base Excess (-9-1.8) freeman/L POC ABG O2 Sat (90-95) % POC Sodium (135-144) mmol/L Sodium (136-145) mmol/L POC Potassium (3.3-5.0) mmol/L Potassium (3.5-5.1) mmol/L Chloride (98-107) mmol/L Carbon Dioxide (21-32) mmol/L Anion Gap (3-11) BUN (7-18) mg/dl Creatinine (0.6-1.4) mg/dl Est Cr Clr Drug Dosing ml/min Est GFR ( Amer) ml/min Est GFR (Non-Af Amer) ml/min BUN/Creatinine Ratio (10-20) Glucose (70-99) mg/dl Lactate (0.4-2.0) mmol/L Calcium (8.5-10.1) mg/dl Phosphorus (2.5-4.9) mg/dl Magnesium (1.8-2.4) mg/dl Total Bilirubin (0.2-1) mg/dl AST (15-37) U/L ALT (12-78) U/L Alkaline Phosphatase (45-117) U/L Troponin I (0-0.045) ng/ml Total Protein (6.4-8.2) gm/dl Albumin (3.4-5.0) gm/dl Globulin (2.5-4.0) gm/dl Albumin/Globulin Ratio (0.9-2) Procalcitonin 0.53 H (0-0.5) ng/ml COVID-19 Eval Order Covid19 at [facility] SARS-CoV-2 (PCR) NEGATIVE (Negative) 01/05/21 Range/Units 21:30 WBC (4.8-10.8) K/uL RBC (4.7-6.1) M/uL Hgb (14.0-18.0) g/dL POC Hgb 10.2 L (14.0-18.0) g/dl Hct (42-52) % POC Hct 30 L (42-52) % MCV (80-100) fL MCH (25-34) pg MCHC (32-36) g/dL RDW Std Deviation (36.4-46.3) fL RDW Coeff of Jorge A (11.5-14.5) % Plt Count (130-400) K/uL MPV (7.4-10.4) fL Immature Gran % (Auto) % Neut % (Auto) % Lymph % (Auto) % Divide % (Auto) % Eos % (Auto) % Baso % (Auto) % Neut # (Auto) (1.4-6.5) K/uL Lymph # (Auto) (1.2-3.4) K/uL Divide # (Auto) (0.11-0.59) K/uL Eos # (Auto) (0-0.5) K/uL Baso # (Auto) (0-0.2) K/uL Immature Gran # (Auto) (0.00-0.02) K/uL Specimen Type Arterial POC pH 7.40 (7.35-7.45) POC pCO2 51 H (35-46) mmHg POC pO2 104 H (80-95) mmHg POC HCO3 32 H (19-24) freeman/L POC Total CO2 33 H (24-31) mmol/L POC Base Excess 7.0 H (-9-1.8) freeman/L POC ABG O2 Sat 98.0 H (90-95) % POC Sodium 138 (135-144) mmol/L Sodium (136-145) mmol/L POC Potassium 5.7 H (3.3-5.0) mmol/L Potassium (3.5-5.1) mmol/L Chloride (98-107) mmol/L Carbon Dioxide (21-32) mmol/L Anion Gap (3-11) BUN (7-18) mg/dl Creatinine (0.6-1.4) mg/dl Est Cr Clr Drug Dosing ml/min Est GFR ( Amer) ml/min Est GFR (Non-Af Amer) ml/min BUN/Creatinine Ratio (10-20) Glucose (70-99) mg/dl Lactate (0.4-2.0) mmol/L Calcium (8.5-10.1) mg/dl Phosphorus (2.5-4.9) mg/dl Magnesium (1.8-2.4) mg/dl Total Bilirubin (0.2-1) mg/dl AST (15-37) U/L ALT (12-78) U/L Alkaline Phosphatase (45-117) U/L Troponin I (0-0.045) ng/ml Total Protein (6.4-8.2) gm/dl Albumin (3.4-5.0) gm/dl Globulin (2.5-4.0) gm/dl Albumin/Globulin Ratio (0.9-2) Procalcitonin (0-0.5) ng/ml COVID-19 Eval Order SARS-CoV-2 (PCR) (Negative) Imaging Data Radiologist's Impression: Abdomen/Pelvis CT 01/05/21 20:01 CT OF THE ABDOMEN AND PELVIS WITHOUT CONTRAST CLINICAL HISTORY: Abdominal pain. COMPARISON STUDY: CT of the abdomen and pelvis February 08, 2020. TECHNIQUE: Axial images of the abdomen and pelvis were obtained without IV contrast. Images were reviewed in the axial, sagittal, and coronal planes. Automated exposure control was utilized for the study. A dose lowering technique was utilized adhering to the principles of ALARA. FINDINGS: Visualized portions of the lower chest demonstrate a trace left pleural effusion. Subpleural left lower lobe opacity is partially imaged on this exam but similar to prior study. This favors round atelectasis. The left pleural effusion has decreased in size since CT of February 08, 2020. Please note that the chest CT will be reported separately. Cardiomegaly is noted. There is a trace right pleural effusion. No pneumatosis, free air or portal venous gas is present. Evaluation of the abdomen and pelvis is suboptimal on this unenhanced exam. Unenhanced images of the liver, spleen, adrenal glands and pancreas are unremarkable. There is no hydronephrosis. Water attenuation bilateral renal lesions are suboptimally assessed on this unenhanced exam but favor cysts. Calcifications within each renal sinus are probably vascular in etiology. No ureteral calculi are present. There is no evidence for a bowel obstruction. Colonic diverticulosis is noted without evidence for acute diverticulitis. The appendix is unremarkable. No acute fracture or suspicious lesion is identified within the visualized skeletal structures. There is no fluid collection to suggest an abscess. No free air. IMPRESSION: 1. No acute process within the abdomen or pelvis on unenhanced exam. 2. No bowel obstruction. 3. Colonic diverticulosis without evidence for acute diverticulitis. ACT 112: Negative or not required by law. Electronically signed by: Quentin Morales M.D. 01/05/2021 8:[address] 01/05/21 20:01 CT OF THE HEAD WITHOUT CONTRAST CLINICAL HISTORY: Altered mental status. COMPARISON STUDY: Head CT July 21, 2020. CT DOSE: 884.08 mGy.cm TECHNIQUE: Helical axial images of the head were obtained without IV contrast. Automated exposure control was utilized for the study. A dose lowering technique was utilized adhering to the principles of ALARA. FINDINGS: No acute intracranial hemorrhage, midline shift or mass effect is present. The ventricular system is unremarkable. White matter hypodensities favor small vessel disease. Hyperdensity within the brainstem on axial image 9 of [address] of May 14, 2020. The basal cisterns are patent. No extra-axial collections are present. There are no findings to suggest acute dural sinus thrombosis or acute territorial infarct. No significant calvarial abnormalities are present. There is trace fluid within the bilateral mastoid air cells. Mild polypoid mucosal thickening of the left maxillary sinus is present. IMPRESSION: No acute intracranial findings. No change in appearance of the brain. ACT 112: Negative or not required by law. Electronically signed by: Quentin Morales M.D. 01/05/2021 8:[address] 01/05/21 20:26 CT OF THE CHEST WITHOUT IV CONTRAST CLINICAL HISTORY: Altered mental status. COMPARISON STUDY: Chest CT June 01, 2006. Chest radiograph July 22, 2020. TECHNIQUE: Axial images of the chest were obtained without IV contrast. Images were reviewed in the axial, sagittal, and coronal planes. IV contrast was not administered for this examination. Automated exposure control was utilized for the study. A dose lowering technique was utilized adhering to the principles of ALARA. FINDINGS: There are several mildly enlarged mediastinal lymph nodes. Index precarinal lymph node on image 101 of 281 measures 1.4 cm in short axis diameter. There is moderate cardiomegaly. No pericardial effusion is present. There is no pneumothorax. There is mild left pleural thickening and trace left pleural fluid. Moderate left lung volume loss is noted. There are multiple subpleural mass-like opacities within the left lung, including a 6.3 cm left lower lobe opacity and a 5.2 cm lingular opacity. These are new since chest CT of June 01, 2006. Additional subpleural opacities within the apicoposterior segment of the left upper lobe are noted. Lungs are suboptimally assessed due to respiratory motion. Note is made of groundglass opacities throughout the lungs. There is no consolidation to suggest pneumonia. No acute fracture or suspicious lesion is identified within visualized portions of the bony parts. The abdomen and pelvis will be reported separately. IMPRESSION: 1. Moderate left lung volume loss with several subpleural mass-like opacities with associated pleural thickening and trace left pleural fluid. The subpleural opacities favor round atelectasis. However, a follow-up chest CT in 3 months is recommended to exclude the less likely possibility of an underlying mass. 2. Groundglass opacities throughout the lungs. These may reflect pulmonary edema or an infectious process. 3. Moderate cardiomegaly. 4. Several mildly enlarged mediastinal lymph nodes which are indeterminate but not highly suspicious. This can be assessed on follow-up chest CT. ACT 112: Negative or not required by law. Electronically signed by: Quentin Morales M.D. 01/05/2021 8:52 PM ECG Data Attestation: I personally reviewed and interpreted this ECG as follows: Indication: + altered mental status and + weakness Rate (beats per minute): 75 Rhythm: + normal sinus ECG Intervals/blocks: + First degree AV block, + Normal QRS and + Normal QT ECG [place]: + Left axis deviation ECG ST segments: + Nonspecific ST abnormalities MDM Narrative This is a 65-year-old male brought in by EMS due to altered mental status and initial hypoxia. Patient more awake and alert here per EMS report, oxygen saturations improved on facemask. Patient initially somnolent but was able to be aroused and could answer questions. Patient is a chronic dialysis patient and states he did attend dialysis on Tuesday. A sepsis evaluation was started on the patient. Culture sent, patient was initially started on IV fluids, however these were scaled back his blood pressure appears stable and patient has a tenuous volume status due to his chronic kidney disease requiring dialysis. Usually cefepime started. Due to patient's report for abdominal pain during my exam, patient was initially sent for CT of the abdomen pelvis however on manager critical care unit imaging abnormality was also noted at the lung so a CT of the chest was added. I suspect pneumonia based on his presentation and CT findings. Patient remained stable anoxia mask was able to be slowly weaned. Patient's ABG reassuring, no significant acidemia. Mild hypercapnia was noted. Patient was noted to have mild hyperkalemia. No EKG changes or telemetry findings. Patient was given calcium gluconate as a precaution. Patient not given any additional oral agents due to concern for altered mentation and risk of aspiration. Patient not given Lasix as he no longer makes urine. I discussed the case with hospitalist, they will evaluate and we will consider nebulizer treatments, as well as additional insulin and glucose. I suspect given patient is between dialysis treatments this is likely normal for him. Given patient's prior history of COPD, he would likely benefit from a nebulizer treatment. Patient rechecked multiple times while here prior to discussion with the hospitalist. Following their evaluation I did recheck the patient and he continued to remain hemodynamically stable and volume status appeared stable in addition. Lactic acid not significantly elevated. Procalcitonin only mildly elevated. An order was placed for continuous cardiac monitoring. The monitor shows a rate of __72_ with _normal sinus__ rhythm. Impression & Plan Altered mental status, Acute respiratory failure, Chronic kidney disease (CKD), Hyperkalemia, Pneumonia Discharge Plan Visit Data Chief Complaint: Illness Stated Complaint: Illness ED Provider: Katya Hallman Discharge Problem: Altered mental status, Acute respiratory failure, Chronic kidney disease (CKD), Hyperkalemia, Pneumonia Patient Disposition: Admitted As Inpatient Discharge Instructions Interventions: ED Discharge Assessment Last Done: 01/06/21 02:10 Discharge Problem: Altered mental status Qualifiers: Altered mental status type: unspecified Qualified Code(s): R41.82 - Altered mental status, unspecified Acute respiratory failure Qualifiers: Respiratory failure complication: hypoxia Qualified Code(s): J96.01 - Acute respiratory failure with hypoxia Chronic kidney disease (CKD) Qualifiers: Chronic kidney disease stage: on chronic dialysis Qualified Code(s): N18.6 - End stage renal disease Pneumonia Qualifiers: Pneumonia type: due to unspecified organism Laterality: left Lung location: lower lobe of lung Qualified Code(s): J18.9 - Pneumonia, unspecified organism
[2021-01-05] MEDS ORDERED: AZITHROMYCIN 500 MG in DEXTROSE 5% 250 ML IV STA (21:56)
--- NOTE | 2021-01-05 22:00 | History & Physical Report ---
Date of Service January 05, 2021 Assessment & Plan (1) Acute and chronic respiratory failure with hypoxia: Plan: 65yo male with multiple medical comorbidities to include ESRD on HD, DM, HTN, PAD who was found by family this afternoon unresponsive, hypoxic with saturati ons reportedly in the 70's and febrile. Unclear if patient had his O2 on at home or not. Mild neutrophil predominant leukocytosis with WBC=11.33. Elevated procalcitonin of 0.53. CT of the chest with diffuse ground glass opacities as well as several subpleural mass-like opacities with associated plural thickening (favor atelectasis). Patient was unable to provide detailed history of employment or potential occupational exposure to asbestos or other. Suspect pneumonia as underlying cause of AMS, hypoxia and fever ABG in ER 7. -Admit to medical with telemetry -Follow cultures - sent from ER -Supplemental O2 as needed -Cefepime 1gm IV daily - HD dosing for pulmonary condition -Azithromycin for atypical coverage -Albuterol as needed (2) Lethargy: Plan: Most likely secondary to pneumonia as above. Patient's mental status has improved since being in ER -Treatment as above -Continue to monitor (3) GERD (gastroesophageal reflux disease): Plan: Chronic -Pepcid 40mg po daily (4) Current smoker: Plan: Patient declines nicotine patch -Smoking cessation counseling (5) Nocturnal hypoxia: Plan: Saturation improved -CPAP qHS at [id number] (6) ESRD (end stage renal disease) on dialysis: Plan: Patient with elevated K of 6.2. Was administered Calcium gluconate in the ER x 1 -Repeat labs in AM -HD in AM -Nephrology consultation appreciated -Renal dosing where needed -Continue PhosLo (7) Anemia in chronic kidney disease: Plan: Near baseline. No active bleed -CBC in AM (8) Depression: Plan: Chronic -Continue Escitalopram -Continue Buspirone (9) Hypertension: Plan: Blood pressure appropriately controlled -Continue Carvedilol -Continue Amlodipine -Continue Losartan (10) Hypothyroidism: Plan: Chronic -Continue Synthroid (11) Diabetes mellitus: Plan: Chronic -Continue Lantus, ISS -Goal blood sugar 100 - 140 (12) Peripheral arterial disease: Plan: Chronic. Stable -Continue ASA and Atorvastatin History of Present Illness Chief Complaint: Acute hypoxic respiratory failure, obtundation Primary Care Provider: VY Arriaga Patient is somnolent but arousable. Is able to answer most questions appropriately but does not recall events prior to arrival. History obtained through patient interview, discussion with ER and chart review. Patient is a 65yo male with multiple medical comorbidities to include ESRD on HD q T/R/S with last full HD treatment on two days ago. He lives with his son and was found unresponsive in the home this afternoon around 16:30. EMS was called around 18:30 - patient found unresponsive with saturations of 70% on room air, noted to be pale and diaphoretic with sonorous respirations. Febrile as well with Tm of 103. Patient was placed 15L NRB and administered 1gm of Tylenol en route. His BSG prior to arrival was 103. Upon arrival to the ER patient was afebrile, HD stable, noted to be somewhat unkempt. Patient somnolent, arousable and answering some questions. Patient improved slightly during my encounter. Was able to recall that his brother was at the house earlier today. He has several chronic complaints and states that his cough, SOB, dizziness, double vision, fever, chills and incontinence are all baseline issues and unchanged. No additional complaints ER Course: Azithromycin, Cefepime, Calcium gluconate, NSS x 1L Allergies Allergy/AdvReac Type Severity Reaction Status Date / Time lactose Allergy Intermediate Gastrointestinal Verified 01/05/21 20:16 Upset Home Medications Medication Instructions Recorded Confirmed Type amlodipine 10 mg tablet 10 mg PO HS #90 tab 06/26/20 01/05/21 Rx aspirin 81 mg chewable tablet 81 mg PO HS #90 tab 06/26/20 01/05/21 Rx buspirone 10 mg tablet 10 mg PO BID #180 tab 06/26/20 01/05/21 Rx escitalopram oxalate 10 mg tablet 10 mg PO DAILY #90 tab 06/26/20 01/05/21 Rx furosemide 80 mg tablet (Lasix) 80 mg PO BID #180 tab 06/26/20 01/05/21 Rx gabapentin 100 mg capsule 300 mg PO HS #270 cap 06/26/20 01/05/21 Rx levothyroxine 125 mcg tablet 125 mcg PO DAILYBB #90 tab 06/26/20 01/05/21 Rx losartan 50 mg tablet 50 mg PO DAILY #90 tab 06/26/20 01/05/21 Rx nitroglycerin 0.4 mg sublingual 0.4 mg SUBLINGUAL DIRECTED PRN 07/11/20 01/05/21 History tablet FreeStyle [place] 14 Day Sensor #6 ea NS 07/14/20 11/03/20 Rx (flash glucose sensor) FreeStyle Virgil 14 Day [place] #1 ea NS 07/15/20 11/03/20 Rx (flash glucose scanning reader) KHADAR LIFT #1 ea 08/14/20 11/03/20 Rx prochlorperazine maleate 10 mg 10 mg PO Q8H PRN #20 tab 09/15/20 01/05/21 Rx tablet (Compazine) albuterol sulfate 90 mcg/actuation 1 inh INHALATION QID PRN #6.7 g 10/29/20 01/05/21 Rx aerosol inhaler (ProAir HFA) carvedilol 12.5 mg tablet 12.5 mg PO BID #60 tab 11/06/20 01/05/21 Rx omeprazole 20 mg capsule,delayed 20 mg PO DAILY #30 cap 11/06/20 01/05/21 Rx release cholecalciferol (vitamin D3) 1,250 See Rx Instructions .ROUTE 11/07/20 01/05/21 Rx mcg (50,000 unit) capsule .COMPLEX #25 cap simvastatin 20 mg tablet 20 mg PO QPM #30 tab 11/07/20 01/05/21 Rx calcium carbonate 500 mg calcium 500 mg PO 3XWK #36 tab 11/27/20 01/05/21 Rx (1,250 mg) tablet (Calcium 500) calcium acetate(phosphat bind) 667 2,001 mg PO TIDM 01/05/21 01/05/21 History mg tablet insulin glargine 100 unit/mL 16 unit SUBCUT QAM 01/05/21 01/05/21 History subcutaneous solution (Lantus U-100 Insulin) loperamide 2 mg capsule (Imodium 2 mg PO DIRECTED PRN 01/05/21 01/05/21 History A-D) Past Med/Surg History Medical History Acute hyperkalemia Anemia in chronic kidney disease Anxiety Cellulitis of leg, right Dyslipidemia GERD (gastroesophageal reflux disease) Left lower lobe pneumonia LLL pneumonia On home oxygen therapy 2L n/c with cpap at HS Osteoarthritis Peripheral arterial disease Peripheral neuropathy bilt legs/feet Pleural effusion, left Secondary hyperparathyroidism of renal origin Sepsis Surgical History History of bilateral cataract extraction History of cardiac cath 01/2018 "about 2-3 weeks"; no stents placed @ [facility] by Dr. Coronel History of carpal tunnel release R wrist History of colonoscopy History of repair of anterior cruciate ligament of left knee History of repair of anterior cruciate ligament of right knee History of tonsillectomy History of tooth extraction wisdom teeth Family History Mother Family history of diabetes mellitus Grandmother Family history of diabetes mellitus maternal Other Colorectal cancer Inflammatory bowel disease Melanoma Social History Smoking Status: Current every day smoker Tobacco Type: Cigarettes Cigarettes Per Day: 15 a day; Second Hand Exposure: No; Hx Alcohol Use: Yes Alcohol type: beer Hx Substance Use: No Preferred Language: Kazakh Communication Ability: Effective 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 Beliefs That Will Affect Care: None marital status: Single Current Living Situation: Family Current Living Situation Comment: [facility] Feels Safe at Home: Yes Seatbelt Use: always Assistive Devices: CPAP Review of Systems Review of Systems: All systems reviewed & are unremarkable except as noted in HPI & below Patient endorses chronic cough, SOB, intermittent fever ,chills ,dizziness, diarrhea Physical Exam Physical Exam: General: obese male patient resting comfortably, somnolent but arousable, AA&O x 2, unable to state date Skin: warm, dry, intact, no rashes or lesions, grafting on RLE, mild redness in groin HEENT: NC/AT, PERRL, sclera, conjunctiva without injection, external ear normal to inspection and nontender, nares patent, dry mucus membranes, dentition intact, no oropharyngeal lesions, neck supple, trachea midline, no LAD, no thyromegaly, no JVD Heart: +S1/S2, regular, no m/r/g Lungs: equal air entry bilaterally, no rales/rhonchi/wheezes Abd: +BS, soft, NT/ND, no masses/organomegaly/ascites Ext: warm, 2+ pulses in UE/LE bilaterally, no clubbing/cyanosis or edema Neuro: diffusely weak bilaterally, no focal deficits, oriented x 2, speech clear, no facial droop Results & Data Results & Data ([facility]) Vital Signs (Past 12 Hours) Vital Signs Temp Pulse Pulse Resp BP BP Pulse Ox 01/05/21 21:33 68 24 128/56 L 95 01/05/21 20:36 37.7 C H 70 25 H 137/60 100 01/05/21 20:01 96 01/05/21 20:00 37.7 C H 74 24 153/65 H 96 Laboratory Results Laboratory Results WBC 11.33 K/uL (4.8-10.8) H 01/05/21 19:58 RBC 3.37 M/uL (4.7-6.1) L 01/05/21 19:58 Hgb 10.8 g/dL (14.0-18.0) L 01/05/21 19:58 Hct 32.8 % (42-52) L 01/05/21 19:58 MCV 97.3 fL (80-100) 01/05/21 19:58 MCH 32.0 pg (25-34) 01/05/21 19:58 MCHC 32.9 g/dL (32-36) 01/05/21 19:58 RDW Std Deviation 48.2 fL (36.4-46.3) H 01/05/21 19:58 RDW Coeff of Jorge A 13.6 % (11.5-14.5) 01/05/21 19:58 Plt Count 219 K/uL (130-400) 01/05/21 19:58 MPV 10.1 fL (7.4-10.4) 01/05/21 19:58 Immature Gran % (Auto) 0.4 % 01/05/21 19:58 Neut % (Auto) 83.3 % 01/05/21 19:58 Lymph % (Auto) 9.7 % 01/05/21 19:58 [place] % (Auto) 5.6 % 01/05/21 19:58 Eos % (Auto) 0.6 % 01/05/21 19:58 Baso % (Auto) 0.4 % 01/05/21 19:58 Neut # (Auto) 9.45 K/uL (1.4-6.5) H 01/05/21 19:58 Lymph # (Auto) 1.10 K/uL (1.2-3.4) L 01/05/21 19:58 [place] # (Auto) 0.63 K/uL (0.11-0.59) H 01/05/21 19:58 Eos # (Auto) 0.07 K/uL (0-0.5) 01/05/21 19:58 Baso # (Auto) 0.04 K/uL (0-0.2) 01/05/21 19:58 Immature Gran # (Auto) 0.04 K/uL (0.00-0.02) H 01/05/21 19:58 Sodium 137 mmol/L (136-145) 01/05/21 19:58 Potassium 6.2 mmol/L (3.5-5.1) H* 01/05/21 19:58 Chloride 98 mmol/L (98-107) 01/05/21 19:58 Carbon Dioxide 30 mmol/L (21-32) 01/05/21 19:58 Anion Gap 7.0 (3-11) 01/05/21 19:58 BUN 53 mg/dl (7-18) H 01/05/21 19:58 Creatinine 8.54 mg/dl (0.6-1.4) H* 01/05/21 19:58 Est Cr Clr Drug Dosing 11.7 ml/min 01/05/21 19:58 Est GFR ( Amer) 6.8 ml/min 01/05/21 19:58 Est GFR (Non-Af Amer) 5.9 ml/min 01/05/21 19:58 BUN/Creatinine Ratio 6.2 (10-20) L 01/05/21 19:58 Glucose 168 mg/dl (70-99) H 01/05/21 19:58 Lactate 1.2 mmol/L (0.4-2.0) 01/05/21 19:58 Calcium 9.4 mg/dl (8.5-10.1) 01/05/21 19:58 Phosphorus 3.9 mg/dl (2.5-4.9) 01/05/21 19:58 Magnesium 2.3 mg/dl (1.8-2.4) 01/05/21 19:58 Total Bilirubin 0.5 mg/dl (0.2-1) 01/05/21 19:58 AST 9 U/L (15-37) L 01/05/21 19:58 ALT 14 U/L (12-78) 01/05/21 19:58 Alkaline Phosphatase 73 U/L (45-117) 01/05/21 19:58 Troponin I < 0.015 ng/ml (0-0.045) 01/05/21 19:58 Total Protein 7.6 gm/dl (6.4-8.2) 01/05/21 19:58 Albumin 3.0 gm/dl (3.4-5.0) L 01/05/21 19:58 Globulin 4.6 gm/dl (2.5-4.0) H 01/05/21 19:58 Albumin/Globulin Ratio 0.7 (0.9-2) L 01/05/21 19:58 Procalcitonin 0.53 ng/ml (0-0.5) H 01/05/21 20:06 COVID-19 Eval Order Covid19 at [facility] 01/05/21 20:51 SARS-CoV-2 (PCR) NEGATIVE (Negative) 01/05/21 20:51 Impressions Abdomen/Pelvis CT 01/05/21 20:01 CT OF THE ABDOMEN AND PELVIS WITHOUT CONTRAST CLINICAL HISTORY: Abdominal pain. COMPARISON STUDY: CT of the abdomen and pelvis February 08, 2020. TECHNIQUE: Axial images of the abdomen and pelvis were obtained without IV contrast. Images were reviewed in the axial, sagittal, and coronal planes. Automated exposure control was utilized for the study. A dose lowering technique was utilized adhering to the principles of ALARA. FINDINGS: Visualized portions of the lower chest demonstrate a trace left pleural effusion. Subpleural left lower lobe opacity is partially imaged on this exam but similar to prior study. This favors round atelectasis. The left pleural effusion has decreased in size since CT of February 08, 2020. Please note that the chest CT will be reported separately. Cardiomegaly is noted. There is a trace right pleural effusion. No pneumatosis, free air or portal venous gas is present. Evaluation of the abdomen and pelvis is suboptimal on this unenhanced exam. Unenhanced images of the liver, spleen, adrenal glands and pancreas are unremarkable. There is no hydronephrosis. Water attenuation bilateral renal lesions are suboptimally assessed on this unenhanced exam but favor cysts. Calcifications within each renal sinus are probably vascular in etiology. No ureteral calculi are present. There is no evidence for a bowel obstruction. Colonic diverticulosis is noted without evidence for acute diverticulitis. The appendix is unremarkable. No acute fracture or suspicious lesion is identified within the visualized skeletal structures. There is no fluid collection to suggest an abscess. No free air. IMPRESSION: 1. No acute process within the abdomen or pelvis on unenhanced exam. 2. No bowel obstruction. 3. Colonic diverticulosis without evidence for acute diverticulitis. ACT 112: Negative or not required by law. Electronically signed by: Quentin Morales M.D. 01/05/2021 8:[address] 01/05/21 20:01 CT OF THE HEAD WITHOUT CONTRAST CLINICAL HISTORY: Altered mental status. COMPARISON STUDY: Head CT July 21, 2020. CT DOSE: 884.08 mGy.cm TECHNIQUE: Helical axial images of the head were obtained without IV contrast. Automated exposure control was utilized for the study. A dose lowering technique was utilized adhering to the principles of ALARA. FINDINGS: No acute intracranial hemorrhage, midline shift or mass effect is present. The ventricular system is unremarkable. White matter hypodensities favor small vessel disease. Hyperdensity within the brainstem on axial image of is similar to CT of May 14, 2020. The basal cisterns are patent. No extra-axial collections are present. There are no findings to suggest acute dural sinus thrombosis or acute territorial infarct. No significant calvarial abnormalities are present. There is trace fluid within the bilateral mastoid air cells. Mild polypoid mucosal thickening of the left maxillary sinus is present. IMPRESSION: No acute intracranial findings. No change in appearance of the brain. ACT 112: Negative or not required by law. Electronically signed by: Quentin Morales M.D. 01/05/2021 8:[address] 01/05/21 20:26 CT OF THE CHEST WITHOUT IV CONTRAST CLINICAL HISTORY: Altered mental status. COMPARISON STUDY: Chest CT June 01, 2006. Chest radiograph July 22, 2020. TECHNIQUE: Axial images of the chest were obtained without IV contrast. Images were reviewed in the axial, sagittal, and coronal planes. IV contrast was not administered for this examination. Automated exposure control was utilized for the study. A dose lowering technique was utilized adhering to the principles of ALARA. FINDINGS: There are several mildly enlarged mediastinal lymph nodes. Index precarinal lymph node on image 101 of 281 measures 1.4 cm in short axis diameter. There is moderate cardiomegaly. No pericardial effusion is present. There is no pneumothorax. There is mild left pleural thickening and trace left pleural fluid. Moderate left lung volume loss is noted. There are multiple subpleural mass-like opacities within the left lung, including a 6.3 cm left lower lobe opacity and a 5.2 cm lingular opacity. These are new since chest CT of June 01, 2006. Additional subpleural opacities within the apicoposterior segment of the left upper lobe are noted. Lungs are suboptimally assessed due to respiratory motion. Note is made of groundglass opacities throughout the lungs. There is no consolidation to suggest pneumonia. No acute fracture or suspicious lesion is identified within visualized portions of the bony parts. The abdomen and pelvis will be reported separately. IMPRESSION: 1. Moderate left lung volume loss with several subpleural mass-like opacities with associated pleural thickening and trace left pleural fluid. The subpleural opacities favor round atelectasis. However, a follow-up chest CT in 3 months is recommended to exclude the less likely possibility of an underlying mass. 2. Groundglass opacities throughout the lungs. These may reflect pulmonary edema or an infectious process. 3. Moderate cardiomegaly. 4. Several mildly enlarged mediastinal lymph nodes which are indeterminate but not highly suspicious. This can be assessed on follow-up chest CT. ACT 112: Negative or not required by law. Electronically signed by: Quentin Morales M.D. 01/05/2021 8:52 PM Code Status & VTE Plan VTE Prophylaxis Plan VTE Prophylaxis will be ordered: Yes PG Care Time/CCT Total # of Minutes Spent Total Time Spent with Patient: Total time spent is greater than 50% in coordination of care (as documented) at patient's floor/unit and/or counseling patient: Coding Level of Care Code 52911 Initial Inpt Care Lvl 3 Diagnoses Lethargy R53.83 GERD (gastroesophageal reflux disease) K21.9 Current smoker F17.200 Nocturnal hypoxia G47.34 ESRD (end stage renal disease) on dialysis N18.6; Z99.2 Anemia in chronic kidney disease N18.6; D63.1; Z99.2 Chronic kidney disease stage: on chronic dialysis Depression F32.9 Depression Type: unspecified Hypertension I10 Hypertension type: essential hypertension Hypothyroidism E03.9 Hypothyroidism type: unspecified Diabetes mellitus E11.9 Acute and chronic respiratory failure with hypoxia J96.21 Peripheral arterial disease I73.9 (1) Depression Depression Type: unspecified Qualified Code(s): F32.9 - Major depressive disorder, single episode, unspecified (2) Hypothyroidism Hypothyroidism type: unspecified Qualified Code(s): E03.9 - Hypothyroidism, unspecified (3) Anemia in chronic kidney disease Chronic kidney disease stage: on chronic dialysis Qualified Code(s): N18.6 - End stage renal disease; D63.1 - Anemia in chronic kidney disease; Z99.2 - Dependence on renal dialysis (4) Hypertension Hypertension type: essential hypertension Qualified Code(s): I10 - Essential (primary) hypertension
[2021-01-05] MEDS ORDERED: NYSTATIN POWDER 15GM BTL EXT PRN (22:32)
[2021-01-06] MEDS ORDERED: CARBOHYDRATES FOR HYPOGLYCEMIA PO PRN (02:50)
[2021-01-06] MEDS ORDERED: DEXTROSE 50% 50 ML SYRINGE IV PRN (02:50)
[2021-01-06] MEDS ORDERED: GLUCOSE 40% GEL 15 GM TUBE PO PRN (02:50)
[2021-01-06] MEDS ORDERED: GLUCOSE 10 TABS/TUBE PO PRN (02:50)
[2021-01-06] MEDS ORDERED: ONDANSETRON INJ 2 MG/ML 2 ML VIAL IV PRN (02:50)
[2021-01-06] MEDS ORDERED: ACETAMINOPHEN 325 MG TAB PO PRN (02:50)
[2021-01-06] MEDS ORDERED: PROCHLORPERAZINE MALEATE 10 MG TAB PO PRN (02:50)
[2021-01-06] MEDS ORDERED: GLUCAGON FOR INJ 1 MG VIAL SQ PRN (02:50)
[2021-01-06] MEDS ORDERED: ALBUTEROL HFA 8 GM INHALER INH PRN (03:33)
[2021-01-06] MEDS: LEVOTHYROXINE SODIUM 125 MCG TABLET PO SCH (05:44)
[2021-01-06] MEDS: HEPARIN SOD 5,000 UNIT/0.5 ML VIAL SQ SCH ×3 (05:45→19:49)
[2021-01-06 07:27] LABS: Basophils # (auto) 0.02 K/uL (0-0.2); Basophils % (auto) 0.2 %; Eosinophils # (auto) 0.24 K/uL (0-0.5); Eosinophils % (auto) 2.2 %; Hematocrit (blood only) 31.3 % (42-52); Hemoglobin 10.2 g/dL (14.0-18.0); Immature Granulocytes # (auto) 0.03 K/uL (0.00-0.02); Immature Granulocytes % (auto) 0.3 %; Lymphocytes # (auto) 1.82 K/uL (1.2-3.4); Lymphocytes % (auto) 16.5 %; Mean Corpuscular Hemoglobin 31.8 pg (25-34); Mean Corpuscular Hgb Conc 32.6 g/dL (32-36); Mean Corpuscular Volume 97.5 fL (80-100); Mean Platelet Volume 10.3 fL (7.4-10.4); Monocytes # (auto) 0.62 K/uL (0.11-0.59); Monocytes % (auto) 5.6 %; Neutrophils # (auto) 8.31 K/uL (1.4-6.5); Neutrophils % (auto) 75.2 %; Platelet Count 183 K/uL (130-400); RDW Coefficient of Variation 13.5 % (11.5-14.5); RDW Standard Deviation 48.5 fL (36.4-46.3); Red Blood Count 3.21 M/uL (4.7-6.1); White Blood Count 11.04 K/uL (4.8-10.8)
[2021-01-06 07:51] LABS: BUN Creatinine Ratio 6.9 (10-20); Calcium 9.2 mg/dl (8.5-10.1); Creatinine Clr Calc Pharmacy 10.5 ml/min; Est GFR (African American) 6.3 ml/min; Est GFR (Non-African American) 5.5 ml/min; Potassium 5.5 mmol/L (3.5-5.1)
[2021-01-06] MEDS: CALCIUM ACETATE 667 MG CAP/TAB PO SCH ×3 (08:02→18:29)
[2021-01-06] MEDS: FUROSEMIDE 80 MG TAB PO SCH ×2 (08:03→18:29)
[2021-01-06] MEDS: busPIRone 5 MG TAB PO SCH ×2 (08:03→19:48)
[2021-01-06] MEDS: carvediloL 12.5 MG TAB PO SCH ×2 (08:04→19:47)
[2021-01-06] MEDS: ESCITALOPRAM OXALATE 10 MG TAB PO SCH (08:05)
[2021-01-06] MEDS: FAMOTIDINE 40 MG TABLET PO SCH (08:06)
[2021-01-06] MEDS: LOSARTAN POTASSIUM 50 MG TAB PO SCH (08:06)
[2021-01-06] MEDS: INSULIN ASPART 100 UNITS/ML 3 ML PEN SC SCH ×4 (08:07→19:48)
--- NOTE | 2021-01-06 08:52 | Electrocardiogram Report ---
Test Reason : Blood Pressure : / mmHG Vent. Rate : 075 BPM Atrial Rate : 075 BPM P-R Int : 262 ms QRS Dur : 092 ms QT Int : 398 ms P-R-T Axes : 054 -30 066 degrees QTc Int : 444 ms Sinus rhythm with 1st degree A-V block Left axis deviation Low voltage QRS Possible Anterolateral infarct (cited on or before 05-JAN-2021) Abnormal ECG When compared with ECG of 22-JUL-2020 15:02, QRS axis Shifted left T wave amplitude has decreased in Inferior leads Confirmed by Sahil Jimenez ([id number]) on 01/06/2021 8:51:43 AM Referred By: REFERRED SELF Confirmed By:Reynold Jimenez
[2021-01-06] MEDS ORDERED: CEFEPIME 1,000 MG in SYRINGE 0 ML IV SCH (09:00)
[2021-01-06] MEDS: AZITHROMYCIN 250 MG in DEXTROSE 5% 250 ML IV SCH (09:45)
[2021-01-06] MEDS: INSULIN GLARGINE SOLOSTAR 100 UNITS/ML 3 ML PEN SQ SCH (09:46)
--- NOTE | 2021-01-06 10:25 | Nephrology Consultation ---
Date of Consultation January 06, 2021 Assessment & Plan (1) ESRD (end stage renal disease) on dialysis: Chronic HD orders: [facility] TTS 4hr 15min 3K 2.5Ca F-250NR EDW 121kg. Orders for HD today entered into EMR nd reviewed with HD nurse. UF goal 2-3 L as tolerated. Medications appropriately for HD. Repeat metabolic profile tomorrow. Low potassium / renal diet. (2) Acute and chronic respiratory failure with hypoxia: CT reviewed. Concerning features noted. Improvement with current treatment. Antibiotic therapy appropriately dosed for kidney dysfunction / HD. (3) Anemia in chronic kidney disease: Venofer to be provided with HD. MARILYN therapy held with Hgb >10. Chronic, stable. (4) Pleural effusion, left: (5) Debilitated: Recommend consultation w/ social work nurse to determine whether patient requires home health assistance or SNF at time of discharge. History of Present Illness Reason for Consultation: ESRD on HD Requesting Physician: Girma Ugalde MD Attending Physician: Girma Ugalde MD History of Present Illness Mr. Patiño is a 65 year old white-male with ESRD due to diabetic nephropathy. He dialyzes TTS at [facility] under tmy care (4hr 15min, 3k/2.5Ca, F-250NR EDW 121.5kg, access L upper arm AVF, Qb450). Mr. Patiño's medical history is significant for AODM, JANET, ASCVD, current tobacco use, hypothyroidism, obesity. Sebastián was admitted to [facility] yesterday after being found unresponsive at home. EMS were called to the home where Sebastián was found to be pale and diaphoretic. He was febrile with Tm of 103. His BSG was 103. Chest CT and CT abdomen demonstrating evidence of pneumonia. Treatment with azithromycin, cefepime provided. IVF and calcium were provided for hyperkalemia. Improvement noted this AM. Concerns have been expressed similar to prior admissions regarding Sebastián's ability to safely continue to live independently at home. Allergies Allergy/AdvReac Type Severity Reaction Status Date / Time lactose Allergy Intermediate Gastrointestinal Verified 01/05/21 20:16 Upset Home Medications Medication Instructions Recorded Confirmed Type amlodipine 10 mg tablet 10 mg PO HS #90 tab 06/26/20 01/05/21 Rx aspirin 81 mg chewable tablet 81 mg PO HS #90 tab 06/26/20 01/05/21 Rx buspirone 10 mg tablet 10 mg PO BID #180 tab 06/26/20 01/05/21 Rx escitalopram oxalate 10 mg tablet 10 mg PO DAILY #90 tab 06/26/20 01/05/21 Rx furosemide 80 mg tablet (Lasix) 80 mg PO BID #180 tab 06/26/20 01/05/21 Rx gabapentin 100 mg capsule 300 mg PO HS #270 cap 06/26/20 01/05/21 Rx levothyroxine 125 mcg tablet 125 mcg PO DAILYBB #90 tab 06/26/20 01/05/21 Rx losartan 50 mg tablet 50 mg PO DAILY #90 tab 06/26/20 01/05/21 Rx nitroglycerin 0.4 mg sublingual 0.4 mg SUBLINGUAL DIRECTED PRN 07/11/20 01/05/21 History tablet FreeStyle Virgil 14 Day Sensor #6 ea NS 07/14/20 11/03/20 Rx (flash glucose sensor) FreeStyle Virgil 14 Day [place] #1 ea NS 07/15/20 11/03/20 Rx (flash glucose scanning reader) KHADAR LIFT #1 ea 08/14/20 11/03/20 Rx prochlorperazine maleate 10 mg 10 mg PO Q8H PRN #20 tab 09/15/20 01/05/21 Rx tablet (Compazine) albuterol sulfate 90 mcg/actuation 1 inh INHALATION QID PRN #6.7 g 10/29/20 01/05/21 Rx aerosol inhaler (ProAir HFA) carvedilol 12.5 mg tablet 12.5 mg PO BID #60 tab 11/06/20 01/05/21 Rx omeprazole 20 mg capsule,delayed 20 mg PO DAILY #30 cap 11/06/20 01/05/21 Rx release cholecalciferol (vitamin D3) 1,250 See Rx Instructions .ROUTE 11/07/20 01/05/21 Rx mcg (50,000 unit) capsule .COMPLEX #25 cap simvastatin 20 mg tablet 20 mg PO QPM #30 tab 11/07/20 01/05/21 Rx calcium carbonate 500 mg calcium 500 mg PO 3XWK #36 tab 11/27/20 01/05/21 Rx (1,250 mg) tablet (Calcium 500) calcium acetate(phosphat bind) 667 2,001 mg PO TIDM 01/05/21 01/05/21 History mg tablet insulin glargine 100 unit/mL 16 unit SUBCUT QAM 01/05/21 01/05/21 History subcutaneous solution (Lantus U-100 Insulin) loperamide 2 mg capsule (Imodium 2 mg PO DIRECTED PRN 01/05/21 01/05/21 History A-D) Patient History Medical History Acute hyperkalemia Anemia in chronic kidney disease Anxiety Cellulitis of leg, right Dyslipidemia GERD (gastroesophageal reflux disease) Left lower lobe pneumonia LLL pneumonia On home oxygen therapy 2L n/c with cpap at Osteoarthritis Peripheral arterial disease Peripheral neuropathy bilt legs/feet Pleural effusion, left Secondary hyperparathyroidism of renal origin Sepsis Surgical History History of bilateral cataract extraction History of cardiac cath 01/2018 "about 2-3 weeks"; no stents placed @ [facility] by Dr. Coronel History of carpal tunnel release R wrist History of colonoscopy History of repair of anterior cruciate ligament of left knee History of repair of anterior cruciate ligament of right knee History of tonsillectomy History of tooth extraction wisdom teeth Family History Mother Family history of diabetes mellitus Grandmother Family history of diabetes mellitus maternal Other Colorectal cancer Inflammatory bowel disease Melanoma Social History Smoking Status: Current every day smoker Tobacco Type: Cigarettes Cigarettes Per Day: 15 a day; Second Hand Exposure: Yes; Hx Alcohol Use: No Hx Substance Use: No Preferred Language: Ethiopian Communication Ability: Effective 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 Beliefs That Will Affect Care: None marital status: Single Current Living Situation: Family Current Living Situation Comment: [facility] Feels Safe at Home: Yes Seatbelt Use: always Assistive Devices: Oxygen - Continuous Review of Systems Review of Systems: All systems reviewed & are unremarkable except as noted in HPI & below Physical Exam Constitutional: well developed, + ill appearing and + morbidly obese; no acute distress Eyes: no scleral abnormality and no corneal abnormality ENMT: Mouth: no oral mucosal abnormality Neck: normal visual inspection and trachea midline Respiratory: normal respiratory effort Auscultation: + rhonchi wearing BIPAP Cardiovascular: Rate/Rhythm: regular rate Heart Sounds: normal S1, normal S2 and + murmur Extremities: + edema and + AV fistula Musculoskeletal: Extremities: no cyanosis and no clubbing Skin: normal turgor; no lesions Neurologic: Motor/Sensory: no tremor and no asterixis Psychiatric: Orientation: alert and oriented x 3 Results & Data ([facility]) Vital Signs (Past 12 Hours) Vital Signs Temp Pulse Pulse Resp BP Pulse Ox 01/06/21 09:29 60 18 93 01/06/21 08:00 56 L 01/06/21 07:57 36.6 C 59 L 20 154/74 H 98 01/06/21 04:27 58 L 19 94 01/06/21 02:50 36.3 C L 58 L 14 135/69 99 01/06/21 02:01 59 L 19 139/74 98 01/06/21 00:47 61 24 125/63 97 01/05/21 23:00 65 17 129/61 99 Laboratory Results Laboratory Results - last 24 hr 01/05/21 01/05/21 01/05/21 19:58 19:58 19:58 WBC 11.33 H RBC 3.37 L Hgb 10.8 L Hct 32.8 L MCV 97.3 MCH 32.0 MCHC 32.9 RDW Std Deviation 48.2 H RDW Coeff of Jorge A 13.6 Plt Count 219 MPV 10.1 Immature Gran % (Auto) 0.4 Neut % (Auto) 83.3 Lymph % (Auto) 9.7 [place] % (Auto) 5.6 Eos % (Auto) 0.6 Baso % (Auto) 0.4 Neut # (Auto) 9.45 H Lymph # (Auto) 1.10 L [place] # (Auto) 0.63 H Eos # (Auto) 0.07 Baso # (Auto) 0.04 Immature Gran # (Auto) 0.04 H Sodium 137 Potassium 6.2 H* Chloride 98 Carbon Dioxide 30 Anion Gap 7.0 BUN 53 H Creatinine 8.54 H* Est Cr Clr Drug Dosing 11.7 Est GFR ( Amer) 6.8 Est GFR (Non-Af Amer) 5.9 BUN/Creatinine Ratio 6.2 L Glucose 168 H POC Glucose Lactate 1.2 Calcium 9.4 Phosphorus 3.9 Magnesium 2.3 Total Bilirubin 0.5 AST 9 L ALT 14 Alkaline Phosphatase 73 Troponin I < 0.015 Total Protein 7.6 Albumin 3.0 L Globulin 4.6 H Albumin/Globulin Ratio 0.7 L Procalcitonin Nasal Screen MRSA (PCR) COVID-19 Eval Order SARS-CoV-2 (PCR) 01/05/21 01/05/21 01/05/21 20:06 20:51 20:51 WBC RBC Hgb Hct MCV MCH MCHC RDW Std Deviation RDW Coeff of Jorge A Plt Count MPV Immature Gran % (Auto) Neut % (Auto) Lymph % (Auto) [place] % (Auto) Eos % (Auto) Baso % (Auto) Neut # (Auto) Lymph # (Auto) [place] # (Auto) Eos # (Auto) Baso # (Auto) Immature Gran # (Auto) Sodium Potassium Chloride Carbon Dioxide Anion Gap BUN Creatinine Est Cr Clr Drug Dosing Est GFR ( Amer) Est GFR (Non-Af Amer) BUN/Creatinine Ratio Glucose POC Glucose Lactate Calcium Phosphorus Magnesium Total Bilirubin AST ALT Alkaline Phosphatase Troponin I Total Protein Albumin Globulin Albumin/Globulin Ratio Procalcitonin 0.53 H Nasal Screen MRSA (PCR) COVID-19 Eval Order Covid19 at [facility] SARS-CoV-2 (PCR) NEGATIVE 01/06/21 01/06/21 01/06/21 04:10 06:55 06:55 WBC 11.04 H RBC 3.21 L Hgb 10.2 L Hct 31.3 L MCV 97.5 MCH 31.8 MCHC 32.6 RDW Std Deviation 48.5 H RDW Coeff of Jorge A 13.5 Plt Count 183 MPV 10.3 Immature Gran % (Auto) 0.3 Neut % (Auto) 75.2 Lymph % (Auto) 16.5 [place] % (Auto) 5.6 Eos % (Auto) 2.2 Baso % (Auto) 0.2 Neut # (Auto) 8.31 H Lymph # (Auto) 1.82 [place] # (Auto) 0.62 H Eos # (Auto) 0.24 Baso # (Auto) 0.02 Immature Gran # (Auto) 0.03 H Sodium 137 Potassium 5.5 H Chloride 101 Carbon Dioxide 28 Anion Gap 9.0 BUN 63 H Creatinine 9.08 H* D Est Cr Clr Drug Dosing 10.5 Est GFR ( Amer) 6.3 Est GFR (Non-Af Amer) 5.5 BUN/Creatinine Ratio 6.9 L Glucose 120 H POC Glucose Lactate Calcium 9.2 Phosphorus Magnesium Total Bilirubin AST ALT Alkaline Phosphatase Troponin I Total Protein Albumin Globulin Albumin/Globulin Ratio Procalcitonin Nasal Screen MRSA (PCR) Negative COVID-19 Eval Order SARS-CoV-2 (PCR) 01/06/21 07:13 WBC RBC Hgb Hct MCV MCH MCHC RDW Std Deviation RDW Coeff of Jorge A Plt Count MPV Immature Gran % (Auto) Neut % (Auto) Lymph % (Auto) [place] % (Auto) Eos % (Auto) Baso % (Auto) Neut # (Auto) Lymph # (Auto) [place] # (Auto) Eos # (Auto) Baso # (Auto) Immature Gran # (Auto) Sodium Potassium Chloride Carbon Dioxide Anion Gap BUN Creatinine Est Cr Clr Drug Dosing Est GFR ( Amer) Est GFR (Non-Af Amer) BUN/Creatinine Ratio Glucose POC Glucose 118 H Lactate Calcium Phosphorus Magnesium Total Bilirubin AST ALT Alkaline Phosphatase Troponin I Total Protein Albumin Globulin Albumin/Globulin Ratio Procalcitonin Nasal Screen MRSA (PCR) COVID-19 Eval Order SARS-CoV-2 (PCR) PG Care Time/CCT Total # of Minutes Spent Total Time Spent with Patient: Total time spent is greater than 50% in coordination of care (as documented) at patient's floor/unit and/or counseling patient: Coding Level of Care Code 78053 Inpt Consult Level 4 Diagnoses ESRD (end stage renal disease) on dialysis N18.6; Z99.2 Acute and chronic respiratory failure with hypoxia J96.21 Anemia in chronic kidney disease N18.6; D63.1; Z99.2 Chronic kidney disease stage: on chronic dialysis Pleural effusion, left J90 Debilitated R53.81 (1) Anemia in chronic kidney disease Chronic kidney disease stage: on chronic dialysis Qualified Code(s): N18.6 - End stage renal disease; D63.1 - Anemia in chronic kidney disease; Z99.2 - Dependence on renal dialysis
[2021-01-06 11:02] LABS: iSTAT Arterial Blood Gas HCO3 32 meg/L (19-24); iSTAT Arterial Blood Gas pCO2 51 mmHg (35-46); iSTAT Arterial Blood Gas pO2 104 mmHg (80-95); iSTAT Carbon Dioxide 33 mmol/L (24-31); iSTAT Hematocrit 30 % (42-52); iSTAT Hemoglobin 10.2 g/dl (14.0-18.0); iSTAT Potassium 5.7 mmol/L (3.3-5.0); iSTAT Sample Type Arterial; iSTAT Sodium 138 mmol/L (135-144)
[2021-01-06] MEDS ORDERED: HEPARIN SOD (PORCINE) 1000 UNIT/ML IV ONE (15:00)
--- NOTE | 2021-01-06 15:21 | Hospitalist Progress Note ---
Date of Service January 06, 2021 Assessment & Plan (1) Acute and chronic respiratory failure with hypoxia: Plan: 65yo male with multiple medical comorbidities to include ESRD on HD, DM, HTN, PAD who was found by family this afternoon unresponsive, hypoxic with saturati ons reportedly in the 70's and febrile. Unclear if patient had his O2 on at home or not. Mild neutrophil predominant leukocytosis with WBC=11.33. Elevated procalcitonin of 0.53. CT of the chest with diffuse ground glass opacities as well as several subpleural mass-like opacities with associated plural thickening (favor atelectasis). Patient was unable to provide detailed history of employment or potential occupational exposure to asbestos or other. Suspect pneumonia as underlying cause of AMS, hypoxia and fever ABG in ER 7. -Admit to medical with telemetry -Follow cultures - sent from ER -Supplemental O2 as needed -Cefepime 1gm IV daily - HD dosing for pulmonary condition -Azithromycin for atypical coverage -Albuterol as needed -> Appears more comfortable today. Was on nasal cannula on my interview. Will get MRSA nares swab. Continue current abx. (2) Lethargy: Plan: Most likely secondary to hypoxemia as above. Patient's mental status has improved since being in hospital. - Treatment as above - Continue to monitor (3) GERD (gastroesophageal reflux disease): Plan: Chronic. - Pepcid 40mg po daily (4) Current smoker: Plan: Patient declines nicotine patch. - Smoking cessation counseling (5) Nocturnal hypoxia: Plan: Saturation improved. - CPAP qHS at [id number] (6) ESRD (end stage renal disease) on dialysis: Plan: Patient with elevated K of 6.2 on admission. Was administered Calcium gluconate in the ER x 1. - HD in AM - Nephrology consultation appreciated - Renal dosing where needed - Continue PhosLo (7) Anemia in chronic kidney disease: Plan: Near baseline hgb of 10 - 11. No active bleed noted. - CBC in AM (8) Depression: Plan: Chronic. - Continue Escitalopram - Continue Buspirone (9) Hypertension: Plan: Blood pressure appropriately controlled. Today it is 150/75. - Continue Carvedilol - Continue Amlodipine - Continue Losartan (10) Hypothyroidism: Plan: Chronic. TSH was 2.3 in 11/2020. - Continue Synthroid (11) Diabetes mellitus: Plan: Chronic. A1c was 6.9% in 11/2020. - Continue Lantus, ISS - Goal blood sugar 100 - 140 -> Blood sugars 120 - 200 in last 24 hours. (12) Peripheral arterial disease: Plan: Chronic. Stable -Continue ASA and Atorvastatin Admission and Anticipated Discharge Date Admission Date: January 05, 2021 Subjective Doing well today. Some back pain and leg pain which he reports is chronic. Reports no fevers/chills, chest pain, shortness of breath, abdominal pain, nausea, or vomiting. Physical Exam Constitutional: WD/WN, vitals as above Eyes: EOM intact bilaterally; no conjunctival abnormality ENMT: external ear and nose normal, oropharynx normal Neck: trachea midline, no thyromegaly normal visual inspection Respiratory: normal respiratory effort, lungs clear to auscultation no respiratory distress Cardiovascular: RRR, no murmur, no edema Gastrointestinal (Abdomen): Inspection/Auscultation: abdomen normal to inspection; abdomen not distended Musculoskeletal: no cyanosis or clubbing, extremities motor strength 5/5 Skin: no rashes, warm and dry Neurologic: moves all extremities and awake Psychiatric: Orientation: alert, oriented to person and cooperative Results & Data Results & Data ([facility]) Vital Signs (Past 12 Hours) Vital Signs Temp Pulse Pulse Resp BP BP Pulse Ox 01/06/21 14:20 76 165/100 H 01/06/21 14:00 62 131/71 01/06/21 13:40 61 140/69 01/06/21 13:20 59 L 123/70 01/06/21 13:03 60 124/68 01/06/21 12:52 37.1 C 60 128/72 01/06/21 11:30 36.9 C 60 20 144/77 H 97 01/06/21 09:29 60 18 93 01/06/21 08:00 56 L 01/06/21 07:57 36.6 C 59 L 20 154/74 H 98 01/06/21 04:27 58 L 19 94 PG Care Time/CCT Total # of Minutes Spent Total Time Spent with Patient: Total time spent is greater than 50% in coordination of care (as documented) at patient's floor/unit and/or counseling patient: Coding Level of Care Code 77090 Subseq Hosp Care Lvl 2 Diagnoses Acute and chronic respiratory failure with hypoxia J96.21 Lethargy R53.83 GERD (gastroesophageal reflux disease) K21.9 Current smoker F17.200 Nocturnal hypoxia G47.34 ESRD (end stage renal disease) on dialysis N18.6; Z99.2 Anemia in chronic kidney disease N18.6; D63.1; Z99.2 Chronic kidney disease stage: on chronic dialysis Depression F32.9 Depression Type: unspecified Hypertension I10 Hypertension type: essential hypertension Hypothyroidism E03.9 Hypothyroidism type: unspecified Diabetes mellitus E11.9 Peripheral arterial disease I73.9 (1) Anemia in chronic kidney disease Chronic kidney disease stage: on chronic dialysis Qualified Code(s): N18.6 - End stage renal disease; D63.1 - Anemia in chronic kidney disease; Z99.2 - Dependence on renal dialysis (2) Depression Depression Type: unspecified Qualified Code(s): F32.9 - Major depressive disorder, single episode, unspecified (3) Hypertension Hypertension type: essential hypertension Qualified Code(s): I10 - Essential (primary) hypertension (4) Hypothyroidism Hypothyroidism type: unspecified Qualified Code(s): E03.9 - Hypothyroidism, unspecified
[2021-01-06] MEDS: HEPARIN SOD (PORCINE) 1000 UNIT/ML IV SCH ×2 (15:25→16:23)
[2021-01-06] MEDS: CEFEPIME 500 MG in SYRINGE 0 ML IV SCH (18:30)
[2021-01-06] MEDS: amLODIPine BESYLATE 5 MG TAB PO SCH (19:47)
[2021-01-06] MEDS: SIMVASTATIN 20 MG TAB PO SCH (19:47)
[2021-01-06] MEDS: ASPIRIN 81 MG ECTAB PO SCH (19:48)
[2021-01-06] MEDS: GABAPENTIN 300 MG CAP PO SCH (19:49)
[2021-01-07] MEDS: HEPARIN SOD 5,000 UNIT/0.5 ML VIAL SQ SCH ×3 (06:19→21:06)
[2021-01-07] MEDS: LEVOTHYROXINE SODIUM 125 MCG TABLET PO SCH (06:19)
[2021-01-07] MEDS ORDERED: SODIUM CHLORIDE 0.9% 1000ML 1,000 ML IV PRN (07:00)
[2021-01-07] MEDS ORDERED: HEPARIN SOD (PORCINE) 1000 UNIT/ML IV SCH (07:00)
[2021-01-07] MEDS ORDERED: HEPARIN SOD (PORCINE) 1000 UNIT/ML IV ONE (07:00)
[2021-01-07 07:08] LABS: Hematocrit (blood only) 29.5 % (42-52); Hemoglobin 9.7 g/dL (14.0-18.0); Mean Corpuscular Hemoglobin 31.8 pg (25-34); Mean Corpuscular Hgb Conc 32.9 g/dL (32-36); Mean Corpuscular Volume 96.7 fL (80-100); Mean Platelet Volume 10.1 fL (7.4-10.4); Platelet Count 191 K/uL (130-400); RDW Coefficient of Variation 13.5 % (11.5-14.5); RDW Standard Deviation 46.5 fL (36.4-46.3); Red Blood Count 3.05 M/uL (4.7-6.1)
[2021-01-07 07:55] LABS: BUN Creatinine Ratio 5.9 (10-20); Calcium 9.9 mg/dl (8.5-10.1); Creatinine Clr Calc Pharmacy 16.5 ml/min; Est GFR (Non-African American) 9.5 ml/min; Magnesium 2.4 mg/dl (1.8-2.4); Potassium 4.4 mmol/L (3.5-5.1)
[2021-01-07] MEDS: INSULIN ASPART 100 UNITS/ML 3 ML PEN SC SCH ×4 (09:04→20:56)
[2021-01-07] MEDS: CALCIUM ACETATE 667 MG CAP/TAB PO SCH ×3 (09:08→16:18)
[2021-01-07] MEDS: FUROSEMIDE 80 MG TAB PO SCH ×2 (09:09→16:17)
[2021-01-07] MEDS: busPIRone 5 MG TAB PO SCH ×2 (09:10→21:04)
[2021-01-07] MEDS: carvediloL 12.5 MG TAB PO SCH ×2 (09:11→21:05)
[2021-01-07] MEDS: LOSARTAN POTASSIUM 50 MG TAB PO SCH (09:12)
[2021-01-07] MEDS: FAMOTIDINE 40 MG TABLET PO SCH (09:12)
[2021-01-07] MEDS: INSULIN GLARGINE SOLOSTAR 100 UNITS/ML 3 ML PEN SQ SCH (09:21)
[2021-01-07] MEDS: AZITHROMYCIN 250 MG in DEXTROSE 5% 250 ML IV SCH (09:22)
--- NOTE | 2021-01-07 09:51 | Nephrology Progress Note ---
Date of Service January 07, 2021 Assessment & Plan (1) ESRD (end stage renal disease) on dialysis: Plan: Chronic HD orders: [facility] [place] TTS 4hr 15min 3K 2.5Ca F-250NR EDW 121kg. Adequate treatment yesterday. BP and volume status acceptable. Clearance acceptable. Medications appropriately for HD. Repeat metabolic profile tomorrow. Next HD tomorrow. Low potassium / renal diet. (2) Acute and chronic respiratory failure with hypoxia: Plan: CT reviewed. Concerning features noted. Improvement with current treatment. Antibiotic therapy appropriately dosed for kidney dysfunction / HD. (3) Anemia in chronic kidney disease: Plan: Venofer to be provided with HD yesterday. MARILYN therapy to be provided with HD tomorrow. (4) Pleural effusion, left: (5) Debilitated: Plan: Recommend consultation w/ social worker psychiatric to determine whether patient requires home health assistance or SNF at time of discharge. Admission and Anticipated Discharge Date Admission Date: January 05, 2021 Subjective No acute events overnight. No complaints this AM. No fevers or chills. Tolerated HD yesterday without complications. Sebastián admits that he is not compliant with aspiration precautions or thickened liquids at home. He believes aspiration contributed to pneumonia. He refuses thickened liquids however. He also told me that he has been waiting on availability for placement at a detention in [place] (he does not know the name of the facility). Review of Systems Review of Systems: All systems reviewed & are unremarkable except as noted in HPI & below Physical Exam Constitutional: well developed, + ill appearing and + morbidly obese; no acute distress Eyes: no scleral abnormality and no corneal abnormality ENMT: Mouth: no oral mucosal abnormality Neck: normal visual inspection and trachea midline Respiratory: normal respiratory effort Auscultation: + rhonchi Cardiovascular: Rate/Rhythm: regular rate Heart Sounds: normal S1, normal S2 and + murmur Extremities: + edema and + AV fistula Musculoskeletal: Extremities: no cyanosis and no clubbing Skin: normal turgor; no lesions Neurologic: Motor/Sensory: no tremor and no asterixis Psychiatric: Orientation: alert and oriented x 3 Results & Data ([facility]) Vital Signs (Past 12 Hours) Vital Signs Temp Pulse Pulse Resp BP Pulse Ox 01/07/21 07:17 54 L 01/07/21 07:03 36.6 C 60 17 158/75 H 93 10/06/21 04:00 36.5 C 73 18 152/71 H 98 01/07/21 03:04 56 L 18 96 01/06/21 23:59 62 01/06/21 23:57 36.7 C 58 L 18 169/73 H 97 01/06/21 22:07 68 22 94 Laboratory Results Laboratory Results - last 24 hr 01/05/21 01/06/21 01/06/21 21:30 11:22 18:15 WBC RBC Hgb POC Hgb 10.2 L Hct POC Hct 30 L MCV MCH MCHC RDW Std Deviation RDW Coeff of Jorge A Plt Count MPV Specimen Type Arterial POC pH 7.40 POC pCO2 51 H POC pO2 104 H POC HCO3 32 H POC Total CO2 33 H POC Base Excess 7.0 H POC ABG O2 Sat 98.0 H POC Sodium 138 Sodium POC Potassium 5.7 H Potassium Chloride Carbon Dioxide Anion Gap BUN Creatinine Est Cr Clr Drug Dosing Est GFR ( Amer) Est GFR (Non-Af Amer) BUN/Creatinine Ratio Glucose POC Glucose 207 H 101 H Calcium Magnesium Nasal Screen MRSA (PCR) 01/06/21 01/07/21 01/07/21 19:45 06:49 06:49 WBC 6.70 RBC 3.05 L Hgb 9.7 L POC Hgb Hct 29.5 L POC Hct MCV 96.7 MCH 31.8 MCHC 32.9 RDW Std Deviation 46.5 H RDW Coeff of Jorge A 13.5 Plt Count 191 MPV 10.1 Specimen Type POC pH POC pCO2 POC pO2 POC HCO3 POC Total CO2 POC Base Excess POC ABG O2 Sat POC Sodium Sodium 136 POC Potassium Potassium 4.4 D Chloride 102 Carbon Dioxide 28 Anion Gap 7.0 BUN 34 H Creatinine 5.75 H* D Est Cr Clr Drug Dosing 16.5 Est GFR ( Amer) 11.0 Est GFR (Non-Af Amer) 9.5 BUN/Creatinine Ratio 5.9 L Glucose 119 H POC Glucose 98 Calcium 9.9 Magnesium 2.4 Nasal Screen MRSA (PCR) 01/07/21 01/07/21 07:16 Unknown WBC RBC Hgb POC Hgb Hct POC Hct MCV MCH MCHC RDW Std Deviation RDW Coeff of Jorge A Plt Count MPV Specimen Type POC pH POC pCO2 POC pO2 POC HCO3 POC Total CO2 POC Base Excess POC ABG O2 Sat POC Sodium Sodium POC Potassium Potassium Chloride Carbon Dioxide Anion Gap BUN Creatinine Est Cr Clr Drug Dosing Est GFR ( Amer) Est GFR (Non-Af Amer) BUN/Creatinine Ratio Glucose POC Glucose 119 H Calcium Magnesium Nasal Screen MRSA (PCR) Pending PG Care Time/CCT Total # of Minutes Spent Total Time Spent with Patient: Total time spent is greater than 50% in coordination of care (as documented) at patient's floor/unit and/or counseling patient: Coding Level of Care Code 62140 Subseq Hosp Care Lvl 3 Diagnoses ESRD (end stage renal disease) on dialysis N18.6; Z99.2 Acute and chronic respiratory failure with hypoxia J96.21 Anemia in chronic kidney disease N18.6; D63.1; Z99.2 Chronic kidney disease stage: on chronic dialysis Pleural effusion, left J90 Debilitated R53.81 (1) Anemia in chronic kidney disease Chronic kidney disease stage: on chronic dialysis Qualified Code(s): N18.6 - End stage renal disease; D63.1 - Anemia in chronic kidney disease; Z99.2 - Dependence on renal dialysis
[2021-01-07] MEDS: ESCITALOPRAM OXALATE 10 MG TAB PO SCH (11:06)
[2021-01-07] MEDS: CEFEPIME 500 MG in SYRINGE 0 ML IV SCH (16:14)
--- NOTE | 2021-01-07 21:02 | Hospitalist Progress Note ---
Date of Service January 07, 2021 Assessment & Plan (1) Acute and chronic respiratory failure with hypoxia: Plan: 65yo male with multiple medical comorbidities to include ESRD on HD, DM, HTN, PAD who was found by family this afternoon unresponsive, hypoxic with saturati ons reportedly in the 70's and febrile. Unclear if patient had his O2 on at home or not. Mild neutrophil predominant leukocytosis with WBC=11.33. Elevated procalcitonin of 0.53. CT of the chest with diffuse ground glass opacities as well as several subpleural mass-like opacities with associated plural thickening (favor atelectasis). Patient was unable to provide detailed history of employment or potential occupational exposure to asbestos or other. Suspect pneumonia as underlying cause of AMS, hypoxia and fever ABG in ER 7. -Admit to medical with telemetry -Follow cultures - sent from ER -Supplemental O2 as needed -Cefepime 1gm IV daily - HD dosing for pulmonary condition -Azithromycin for atypical coverage -Albuterol as needed -> Appears more comfortable today. Was on room air on my interview. Continue current abx. likely discharge tomorrow. (2) Lethargy: Plan: Most likely secondary to hypoxemia as above. Patient's mental status has improved since being in hospital. - Treatment as above - Continue to monitor (3) GERD (gastroesophageal reflux disease): Plan: Chronic. - Pepcid 40mg po daily (4) Current smoker: Plan: Patient declines nicotine patch. - Smoking cessation counseling (5) Nocturnal hypoxia: Plan: Saturation improved. - CPAP qHS at [id number] (6) ESRD (end stage renal disease) on dialysis: Plan: Patient with elevated K of 6.2 on admission. Was administered Calcium gluconate in the ER x 1. - HD in AM - Nephrology consultation appreciated - Renal dosing where needed - Continue PhosLo (7) Anemia in chronic kidney disease: Plan: Near baseline hgb of 10 - 11. No active bleed noted. - CBC in AM (8) Depression: Plan: Chronic. - Continue Escitalopram - Continue Buspirone (9) Hypertension: Plan: Blood pressure appropriately controlled. Today it is 150/75. - Continue Carvedilol - Continue Amlodipine - Continue Losartan (10) Hypothyroidism: Plan: Chronic. TSH was 2.3 in 11/2020. - Continue Synthroid (11) Diabetes mellitus: Plan: Chronic. A1c was 6.9% in 11/2020. - Continue Lantus, ISS - Goal blood sugar 100 - 140 -> Blood sugars 120 - 200 in last 24 hours. (12) Peripheral arterial disease: Plan: Chronic. Stable -Continue ASA and Atorvastatin Admission and Anticipated Discharge Date Admission Date: January 05, 2021 Subjective 65 yo male reports feeling well. Review of Systems Review of Systems: All systems reviewed & are unremarkable except as noted in HPI & below Physical Exam Physical Exam: Constitutional: WD/WN, vitals as above Eyes: EOM intact bilaterally; no conjunctival abnormality ENMT: external ear and nose normal, oropharynx normal Neck: trachea midline, no thyromegaly normal visual inspection Respiratory: normal respiratory effort, lungs clear to auscultation no respiratory distress Cardiovascular: RRR, no murmur, no edema Gastrointestinal (Abdomen): Inspection/Auscultation: abdomen normal to inspection; abdomen not distended Musculoskeletal: no cyanosis or clubbing, extremities motor strength 5/5 Skin: no rashes, warm and dry Neurologic: moves all extremities and awake Psychiatric: Orientation: alert, oriented to person and cooperative Results & Data Results & Data ([facility]) Vital Signs (Past 12 Hours) Vital Signs Temp Pulse Pulse Pulse Resp BP Pulse Ox 01/07/21 18:42 36.4 C L 82 20 143/69 H 95 01/07/21 15:36 61 01/07/21 15:23 36.7 C 61 19 152/70 H 97 01/07/21 11:23 36.7 C 62 21 148/74 H 95 PG Care Time/CCT Total # of Minutes Spent Total Time Spent with Patient: Total time spent is greater than 50% in coordination of care (as documented) at patient's floor/unit and/or counseling patient: Coding Level of Care Code 16168 Subseq Hosp Care Lvl 2 Diagnoses Acute and chronic respiratory failure with hypoxia J96.21 Lethargy R53.83 GERD (gastroesophageal reflux disease) K21.9 Current smoker F17.200 Nocturnal hypoxia G47.34 ESRD (end stage renal disease) on dialysis N18.6; Z99.2 Anemia in chronic kidney disease N18.6; D63.1; Z99.2 Chronic kidney disease stage: on chronic dialysis Depression F32.9 Depression Type: unspecified Hypertension I10 Hypertension type: essential hypertension Hypothyroidism E03.9 Hypothyroidism type: unspecified Diabetes mellitus E11.9 Peripheral arterial disease I73.9 Time Spent (min) 25 (1) Depression Depression Type: unspecified Qualified Code(s): F32.9 - Major depressive disorder, single episode, unspecified (2) Hypothyroidism Hypothyroidism type: unspecified Qualified Code(s): E03.9 - Hypothyroidism, unspecified (3) Anemia in chronic kidney disease Chronic kidney disease stage: on chronic dialysis Qualified Code(s): N18.6 - End stage renal disease; D63.1 - Anemia in chronic kidney disease; Z99.2 - Dependence on renal dialysis (4) Hypertension Hypertension type: essential hypertension Qualified Code(s): I10 - Essential (primary) hypertension
[2021-01-07] MEDS: GABAPENTIN 300 MG CAP PO SCH (21:05)
[2021-01-07] MEDS: amLODIPine BESYLATE 5 MG TAB PO SCH (21:05)
[2021-01-07] MEDS: SIMVASTATIN 20 MG TAB PO SCH (21:08)
[2021-01-07] MEDS: ASPIRIN 81 MG ECTAB PO SCH (21:09)
[2021-01-08] MEDS: HEPARIN SOD 5,000 UNIT/0.5 ML VIAL SQ SCH ×3 (05:57→22:05)
[2021-01-08] MEDS: LEVOTHYROXINE SODIUM 125 MCG TABLET PO SCH (05:58)
[2021-01-08] MEDS ORDERED: HEPARIN SOD (PORCINE) 1000 UNIT/ML IV ONE (07:00)
[2021-01-08] MEDS ORDERED: EPOETIN ALFA 10,000 UNITS/ML VIAL IV SCH (07:00)
[2021-01-08] MEDS ORDERED: SODIUM CHLORIDE 0.9% 1000ML 1,000 ML IV PRN (07:00)
[2021-01-08] MEDS: INSULIN ASPART 100 UNITS/ML 3 ML PEN SC SCH ×4 (09:10→21:02)
[2021-01-08] MEDS: INSULIN GLARGINE SOLOSTAR 100 UNITS/ML 3 ML PEN SQ SCH (09:10)
[2021-01-08 10:04] LABS: Hematocrit (blood only) 36.8 % (42-52); Hemoglobin 11.3 g/dL (14.0-18.0); Mean Corpuscular Hemoglobin 29.9 pg (25-34); Mean Corpuscular Hgb Conc 30.7 g/dL (32-36); Mean Corpuscular Volume 97.4 fL (80-100); Mean Platelet Volume 10.3 fL (7.4-10.4); Platelet Count 154 K/uL (130-400); RDW Coefficient of Variation 13.5 % (11.5-14.5); RDW Standard Deviation 47.8 fL (36.4-46.3); Red Blood Count 3.78 M/uL (4.7-6.1); White Blood Count 5.42 K/uL (4.8-10.8)
[2021-01-08 10:15] LABS: Albumin Level 2.4 gm/dl (3.4-5.0); BUN Creatinine Ratio 6.9 (10-20); Calcium 9.5 mg/dl (8.5-10.1); Creatinine Clr Calc Pharmacy 12.1 ml/min; Est GFR (African American) 7.6 ml/min; Est GFR (Non-African American) 6.5 ml/min; Phosphorus 4.3 mg/dl (2.5-4.9); Potassium 4.9 mmol/L (3.5-5.1)
--- NOTE | 2021-01-08 10:24 | Nephrology Progress Note ---
Date of Service January 08, 2021 Assessment & Plan (1) ESRD (end stage renal disease) on dialysis: Plan: Chronic HD orders: [facility] Jie TTS 4hr 15min 3K 2.5Ca F-250NR EDW 121kg. Orders for HD today entered into EMR and reviewed with HD nurse. Medications appropriately for HD. Repeat metabolic profile tomorrow. Low potassium / renal diet. (2) Acute and chronic respiratory failure with hypoxia: Plan: Improvement with current treatment. Antibiotic therapy appropriately dosed for kidney dysfunction / HD. (3) Anemia in chronic kidney disease: Plan: Venofer provided with HD on Tuesday. Epogen 27321 units with HD today (4) Pleural effusion, left: (5) Debilitated: Plan: Goals of care reviewed. Appreciate CM assistance with dispo planning. Admission and Anticipated Discharge Date Admission Date: January 05, 2021 Subjective No acute events overnight. No complaints this AM. Review of Systems Review of Systems: All systems reviewed & are unremarkable except as noted in HPI & below Physical Exam Constitutional: well developed, + ill appearing and + morbidly obese; no acute distress Eyes: no scleral abnormality and no corneal abnormality ENMT: Mouth: no oral mucosal abnormality Neck: normal visual inspection and trachea midline Respiratory: normal respiratory effort Auscultation: + rhonchi Cardiovascular: Rate/Rhythm: regular rate Heart Sounds: normal S1, normal S2 and + murmur Extremities: + edema and + AV fistula Musculoskeletal: Extremities: no cyanosis and no clubbing Skin: normal turgor; no lesions Neurologic: Motor/Sensory: no tremor and no asterixis Psychiatric: Orientation: alert and oriented x 3 Results & Data ([facility]) Vital Signs (Past 12 Hours) Vital Signs Temp Pulse Pulse Resp BP Pulse Ox 01/08/21 07:38 36.5 C 61 16 179/70 H 93 01/08/21 03:53 57 L 18 96 01/07/21 23:41 58 L 18 95 Laboratory Results Laboratory Results - last 24 hr 01/07/21 01/07/21 01/07/21 11:06 15:59 20:27 WBC RBC Hgb Hct MCV MCH MCHC RDW Std Deviation RDW Coeff of Jorge A Plt Count MPV Sodium Potassium Chloride Carbon Dioxide Anion Gap BUN Creatinine Est Cr Clr Drug Dosing Est GFR ( Amer) Est GFR (Non-Af Amer) BUN/Creatinine Ratio Glucose POC Glucose 147 H 133 H 98 Calcium Phosphorus Albumin Nasal Screen MRSA (PCR) 01/07/21 01/08/21 01/08/21 Unknown 07:50 09:27 WBC 5.42 RBC 3.78 L Hgb 11.3 L Hct 36.8 L MCV 97.4 MCH 29.9 MCHC 30.7 L RDW Std Deviation 47.8 H RDW Coeff of Jorge A 13.5 Plt Count 154 MPV 10.3 Sodium Potassium Chloride Carbon Dioxide Anion Gap BUN Creatinine Est Cr Clr Drug Dosing Est GFR ( Amer) Est GFR (Non-Af Amer) BUN/Creatinine Ratio Glucose POC Glucose 129 H Calcium Phosphorus Albumin Nasal Screen MRSA (PCR) Uninterpretable 01/08/21 09:27 WBC RBC Hgb Hct MCV MCH MCHC RDW Std Deviation RDW Coeff of Jorge A Plt Count MPV Sodium 132 L Potassium 4.9 Chloride 104 Carbon Dioxide 19 L Anion Gap 9.0 BUN 54 H D Creatinine 7.82 H* D Est Cr Clr Drug Dosing 12.1 Est GFR ( Amer) 7.6 Est GFR (Non-Af Amer) 6.5 BUN/Creatinine Ratio 6.9 L Glucose 149 H POC Glucose Calcium 9.5 Phosphorus 4.3 Albumin 2.4 L Nasal Screen MRSA (PCR) PG Care Time/CCT Total # of Minutes Spent Total Time Spent with Patient: Total time spent is greater than 50% in coordination of care (as documented) at patient's floor/unit and/or counseling patient: Coding Level of Care Code 94675 Subseq Hosp Care Lvl 3 Diagnoses ESRD (end stage renal disease) on dialysis N18.6; Z99.2 Acute and chronic respiratory failure with hypoxia J96.21 Anemia in chronic kidney disease N18.6; D63.1; Z99.2 Chronic kidney disease stage: on chronic dialysis Pleural effusion, left J90 Debilitated R53.81 (1) Anemia in chronic kidney disease Chronic kidney disease stage: on chronic dialysis Qualified Code(s): N18.6 - End stage renal disease; D63.1 - Anemia in chronic kidney disease; Z99.2 - Dependence on renal dialysis
[2021-01-08] MEDS: HEPARIN SOD (PORCINE) 1000 UNIT/ML IV SCH ×2 (13:06→13:07)
[2021-01-08] MEDS: carvediloL 12.5 MG TAB PO SCH ×2 (16:10→20:41)
[2021-01-08] MEDS: LOSARTAN POTASSIUM 50 MG TAB PO SCH (16:10)
[2021-01-08] MEDS: FUROSEMIDE 80 MG TAB PO SCH ×2 (16:11→18:15)
[2021-01-08] MEDS: busPIRone 5 MG TAB PO SCH ×2 (16:11→20:40)
[2021-01-08] MEDS: FAMOTIDINE 40 MG TABLET PO SCH (16:11)
[2021-01-08] MEDS: CALCIUM ACETATE 667 MG CAP/TAB PO SCH ×3 (16:11→18:15)
[2021-01-08] MEDS: ESCITALOPRAM OXALATE 10 MG TAB PO SCH (16:13)
[2021-01-08] MEDS: CEFEPIME 500 MG in SYRINGE 0 ML IV SCH (16:17)
[2021-01-08] MEDS: AZITHROMYCIN 250 MG in DEXTROSE 5% 250 ML IV SCH (16:17)
[2021-01-08] MEDS: SIMVASTATIN 20 MG TAB PO SCH (20:40)
[2021-01-08] MEDS: amLODIPine BESYLATE 5 MG TAB PO SCH (20:41)
[2021-01-08] MEDS: ASPIRIN 81 MG ECTAB PO SCH (20:41)
[2021-01-08] MEDS: GABAPENTIN 300 MG CAP PO SCH (20:41)
--- NOTE | 2021-01-08 20:47 | Hospitalist Progress Note ---
Date of Service January 08, 2021 Assessment & Plan (1) Acute and chronic respiratory failure with hypoxia: Plan: 65yo male with multiple medical comorbidities to include ESRD on HD, DM, HTN, PAD who was found by family this afternoon unresponsive, hypoxic with saturati ons reportedly in the 70's and febrile. Unclear if patient had his O2 on at home or not. Mild neutrophil predominant leukocytosis with WBC=11.33. Elevated procalcitonin of 0.53. CT of the chest with diffuse ground glass opacities as well as several subpleural mass-like opacities with associated plural thickening (favor atelectasis). Patient was unable to provide detailed history of employment or potential occupational exposure to asbestos or other. Suspect pneumonia as underlying cause of AMS, hypoxia and fever ABG in ER 7. -Admit to medical with telemetry -Follow cultures - sent from ER -Supplemental O2 as needed -Cefepime 1gm IV daily - HD dosing for pulmonary condition -Azithromycin for atypical coverage -Albuterol as needed -> Appears more comfortable today. Was on room air on my interview. Continue current abx. will continue IV Antibiotics for another day. (2) Lethargy: Plan: Most likely secondary to hypoxemia as above. Patient's mental status has improved since being in hospital. - Treatment as above - Continue to monitor (3) GERD (gastroesophageal reflux disease): Plan: Chronic. - Pepcid 40mg po daily (4) Current smoker: Plan: Patient declines nicotine patch. - Smoking cessation counseling (5) Nocturnal hypoxia: Plan: Saturation improved. - CPAP qHS at [id number] (6) ESRD (end stage renal disease) on dialysis: Plan: Patient with elevated K of 6.2 on admission. Was administered Calcium gluconate in the ER x 1. - HD in AM - Nephrology consultation appreciated - Renal dosing where needed - Continue PhosLo (7) Anemia in chronic kidney disease: Plan: Near baseline hgb of 10 - 11. No active bleed noted. - CBC in AM (8) Depression: Plan: Chronic. - Continue Escitalopram - Continue Buspirone (9) Hypertension: Plan: Blood pressure appropriately controlled. Today it is 150/75. - Continue Carvedilol - Continue Amlodipine - Continue Losartan (10) Hypothyroidism: Plan: Chronic. TSH was 2.3 in 11/2020. - Continue Synthroid (11) Diabetes mellitus: Plan: Chronic. A1c was 6.9% in 11/2020. - Continue Lantus, ISS - Goal blood sugar 100 - 140 -> Blood sugars 120 - 200 in last 24 hours. (12) Peripheral arterial disease: Plan: Chronic. Stable -Continue ASA and Atorvastatin Admission and Anticipated Discharge Date Admission Date: January 05, 2021 Subjective Patient refusing rehab. Patient wants to smoke. Patient reports no new complaints. refuses nicotine patch/ Review of Systems Review of Systems: All systems reviewed & are unremarkable except as noted in HPI & below Physical Exam Physical Exam: Constitutional: WD/WN, vitals as above Eyes: EOM intact bilaterally; no conjunctival abnormality ENMT: external ear and nose normal, oropharynx normal Neck: trachea midline, no thyromegaly normal visual inspection Respiratory: normal respiratory effort, lungs clear to auscultation no respiratory distress Cardiovascular: RRR, no murmur, no edema Gastrointestinal (Abdomen): Inspection/Auscultation: abdomen normal to inspection; abdomen not distended Musculoskeletal: no cyanosis or clubbing, extremities motor strength 5/5 Skin: no rashes, warm and dry Neurologic: moves all extremities and awake Psychiatric: Orientation: alert, oriented to person and cooperative Results & Data Results & Data ([facility]) Vital Signs (Past 12 Hours) Vital Signs Temp Pulse Pulse Pulse Resp BP BP 01/08/21 20:38 65 167/62 H 01/08/21 18:20 62 174/83 H 01/08/21 15:54 36.8 C 61 16 169/71 H 01/08/21 15:20 36.5 C 61 169/71 H 01/08/21 15:13 60 142/62 H 01/08/21 15:00 58 L 138/66 01/08/21 14:40 58 L 155/75 H 01/08/21 14:20 56 L 156/71 H 01/08/21 14:00 56 L 146/75 H 01/08/21 13:40 57 L 144/71 H 01/08/21 13:20 59 L 144/71 H 01/08/21 13:00 55 L 149/74 H 01/08/21 12:40 54 L 141/72 H 01/08/21 12:20 55 L 147/71 H 01/08/21 12:00 55 L 143/68 H 01/08/21 11:40 56 L 128/78 01/08/21 11:20 56 L 137/70 01/08/21 11:11 55 L 125/68 01/08/21 11:06 36.7 C 56 L Pulse Ox 01/08/21 20:38 01/08/21 18:20 01/08/21 15:54 97 01/08/21 15:20 01/08/21 15:13 01/08/21 15:00 01/08/21 14:40 01/08/21 14:20 01/08/21 14:00 01/08/21 13:40 01/08/21 13:20 01/08/21 13:00 01/08/21 12:40 01/08/21 12:20 01/08/21 12:00 01/08/21 11:40 01/08/21 11:20 01/08/21 11:11 01/08/21 11:06 PG Care Time/CCT Total # of Minutes Spent Total Time Spent with Patient: Total time spent is greater than 50% in coordination of care (as documented) at patient's floor/unit and/or counseling patient: Coding Level of Care Code 70879 Subseq Hosp Care Lvl 2 Diagnoses Acute and chronic respiratory failure with hypoxia J96.21 Lethargy R53.83 GERD (gastroesophageal reflux disease) K21.9 Current smoker F17.200 Nocturnal hypoxia G47.34 ESRD (end stage renal disease) on dialysis N18.6; Z99.2 Anemia in chronic kidney disease N18.6; D63.1; Z99.2 Chronic kidney disease stage: on chronic dialysis Depression F32.9 Depression Type: unspecified Hypertension I10 Hypertension type: essential hypertension Hypothyroidism E03.9 Hypothyroidism type: unspecified Diabetes mellitus E11.9 Peripheral arterial disease I73.9 Time Spent (min) 25 (1) Depression Depression Type: unspecified Qualified Code(s): F32.9 - Major depressive disorder, single episode, unspecified (2) Hypothyroidism Hypothyroidism type: unspecified Qualified Code(s): E03.9 - Hypothyroidism, unspecified (3) Anemia in chronic kidney disease Chronic kidney disease stage: on chronic dialysis Qualified Code(s): N18.6 - End stage renal disease; D63.1 - Anemia in chronic kidney disease; Z99.2 - Dependence on renal dialysis (4) Hypertension Hypertension type: essential hypertension Qualified Code(s): I10 - Essential (primary) hypertension
[2021-01-08 22:27] VITALS: TEMP 98.4
[2021-01-09 03:26] VITALS: O2SAT 96
[2021-01-09] MEDS: HEPARIN SOD 5,000 UNIT/0.5 ML VIAL SQ SCH (06:05)
[2021-01-09] MEDS: LEVOTHYROXINE SODIUM 125 MCG TABLET PO SCH (06:06)
[2021-01-09] MEDS: CALCIUM ACETATE 667 MG CAP/TAB PO SCH ×2 (08:59→13:09)
[2021-01-09] MEDS: FUROSEMIDE 80 MG TAB PO SCH (08:59)
[2021-01-09] MEDS: AZITHROMYCIN 250 MG in DEXTROSE 5% 250 ML IV SCH (08:59)
[2021-01-09] MEDS: busPIRone 5 MG TAB PO SCH (09:00)
[2021-01-09] MEDS: carvediloL 12.5 MG TAB PO SCH (09:00)
[2021-01-09] MEDS: ESCITALOPRAM OXALATE 10 MG TAB PO SCH (09:00)
[2021-01-09] MEDS: INSULIN GLARGINE SOLOSTAR 100 UNITS/ML 3 ML PEN SQ SCH (09:01)
[2021-01-09] MEDS: FAMOTIDINE 40 MG TABLET PO SCH (09:01)
[2021-01-09] MEDS: LOSARTAN POTASSIUM 50 MG TAB PO SCH (09:02)
[2021-01-09] MEDS: INSULIN ASPART 100 UNITS/ML 3 ML PEN SC SCH ×2 (09:02→13:08)
[2021-01-09 09:38] VITALS: BP 145/70; PULSE 63
--- NOTE | 2021-01-09 10:55 | Nephrology Progress Note ---
Date of Service January 09, 2021 Assessment & Plan (1) ESRD (end stage renal disease) on dialysis: Plan: Chronic HD orders: [facility] Jie TTS 4hr 15min 3K 2.5Ca F-250NR EDW 121kg. Completed HD yesterday. Will provided an additional abridged treatment today at [facility] if being discharged to the facility. Medications appropriately for HD. Low potassium / renal diet. (2) Acute and chronic respiratory failure with hypoxia: Plan: Antibiotic therapy appropriately dosed for kidney dysfunction / HD. (3) Anemia in chronic kidney disease: Plan: Venofer provided with HD on Tuesday. Epogen 05581 units with HD yesterday. (4) Pleural effusion, left: (5) Debilitated: Plan: Goals of care reviewed. Appreciate CM assistance with dispo planning. Admission and Anticipated Discharge Date Admission Date: January 05, 2021 Subjective No acute events overnight. HD completed yesterday without complications. Overall Bill feels well this AM. Agreeable to rehab at [facility]. I discussed the plan of care with CM and the hospital unit coordinator at [facility]. Due to staffing, I am unable to provided HD at [facility] over the weekend or HD at [facility] today. Review of Systems Review of Systems: All systems reviewed & are unremarkable except as noted in HPI & below Physical Exam Constitutional: well developed, + ill appearing and + morbidly obese; no acute distress Eyes: no scleral abnormality and no corneal abnormality ENMT: Mouth: no oral mucosal abnormality Neck: normal visual inspection and trachea midline Respiratory: normal respiratory effort Auscultation: + rhonchi Cardiovascular: Rate/Rhythm: regular rate Heart Sounds: normal S1, normal S2 and + murmur Extremities: + edema and + AV fistula Musculoskeletal: Extremities: no cyanosis and no clubbing Skin: normal turgor; no lesions Neurologic: Motor/Sensory: no tremor and no asterixis Psychiatric: Orientation: alert and oriented x 3 Results & Data ([facility]) Vital Signs (Past 12 Hours) Vital Signs Temp Pulse Pulse Resp BP Pulse Ox 01/09/21 08:59 63 145/70 H 01/09/21 07:30 36.9 C 67 18 165/71 H 96 01/09/21 03:10 57 L 16 96 Laboratory Results Laboratory Results - last 24 hr 01/08/21 01/08/21 01/09/21 17:36 20:40 08:28 POC Glucose 171 H 125 H 112 H PG Care Time/CCT Total # of Minutes Spent Total Time Spent with Patient: Total time spent is greater than 50% in coordination of care (as documented) at patient's floor/unit and/or counseling patient: Coding Level of Care Code 87359 Subseq Hosp Care Lvl 3 Diagnoses ESRD (end stage renal disease) on dialysis N18.6; Z99.2 Acute and chronic respiratory failure with hypoxia J96.21 Anemia in chronic kidney disease N18.6; D63.1; Z99.2 Chronic kidney disease stage: on chronic dialysis Pleural effusion, left J90 Debilitated R53.81 (1) Anemia in chronic kidney disease Chronic kidney disease stage: on chronic dialysis Qualified Code(s): N18.6 - End stage renal disease; D63.1 - Anemia in chronic kidney disease; Z99.2 - Dependence on renal dialysis
--- NOTE | 2021-01-09 12:55 | Communication Note ---
Date of Service: January 09, 2021 Metabolic encephalopathy Patient presented with AMS, lethargy, and was found unresponsive at home. Risk Factor(s): Fever, pneumonia, respiratory failure/hypoxia Treatment: Head CT, O2, IV antibiotics, blood cultures
[2021-01-09] MEDS ORDERED: AZITHROMYCIN 250 MG TAB PO STA (13:08)
--- NOTE | 2021-01-11 07:22 | Discharge Summary ---
Date of Service January 09, 2021 Admission HPI Per Admitting Provider Patient is somnolent but arousable. Is able to answer most questions appropriately but does not recall events prior to arrival. History obtained through patient interview, discussion with ER and chart review. Patient is a 65yo male with multiple medical comorbidities to include ESRD on HD q T/R/S with last full HD treatment on two days ago. He lives with his son and was found unresponsive in the home this afternoon around 16:30. EMS was called around 18:30 - patient found unresponsive with saturations of 70% on room air, noted to be pale and diaphoretic with sonorous respirations. Febrile as well with Tm of 103. Patient was placed 15L NRB and administered 1gm of Tylenol en route. His BSG prior to arrival was 103. Upon arrival to the ER patient was afebrile, HD stable, noted to be somewhat unkempt. Patient somnolent, arousable and answering some questions. Patient improved slightly during my encounter. Was able to recall that his brother was at the house earlier today. He has several chronic complaints and states that his cough, SOB, dizziness, double vision, fever, chills and incontinence are all baseline issues and unchanged. No additional complaints ER Course: Azithromycin, Cefepime, Calcium gluconate, NSS x 1L Principal Diagnosis As noted below in problem 1 Discharge Exam Constitutional: WD/WN, vitals as above Eyes: EOM intact bilaterally; no conjunctival abnormality ENMT: external ear and nose normal, oropharynx normal Neck: trachea midline, no thyromegaly normal visual inspection Respiratory: normal respiratory effort, lungs clear to auscultation no respiratory distress Cardiovascular: RRR, no murmur, no edema Gastrointestinal (Abdomen): Inspection/Auscultation: abdomen normal to inspection; abdomen not distended Musculoskeletal: no cyanosis or clubbing, extremities motor strength 5/5 Skin: no rashes, warm and dry Neurologic: moves all extremities and awake Psychiatric: Orientation: alert, oriented to person and cooperative Discharge Data Allergies Allergy/AdvReac Type Severity Reaction Status Date / Time lactose Allergy Intermediate Gastrointestinal Verified 01/05/21 20:16 Upset Consultations 01/05/21 21:22 ED Decision to Admit Stat 01/05/21 22:36 Consult Nephrology Routine Ordered Studies 01/05/21 20:01 CT abd pelvis wo con Stat CT head/brain wo con Stat 01/05/21 20:26 CT chest diagnostic wo con Stat Hospital Course (1) Acute and chronic respiratory failure with hypoxia: 65yo male with multiple medical comorbidities to include ESRD on HD, DM, HTN, PAD who was found by family this afternoon unresponsive, hypoxic with saturations reportedly in the 70's and febrile. Unclear if patient had his O2 on at home or not. Mild neutrophil predominant leukocytosis with WBC=11.33. Elevated procalcitonin of 0.53. CT of the chest with diffuse ground glass opacities as well as several subpleural mass-like opacities with associated plural thickening (favor atelectasis). Patient was unable to provide detailed history of employment or potential occupational exposure to asbestos or other. Suspect pneumonia as underlying cause of AMS, hypoxia and fever ABG in ER 7. -Admit to medical with telemetry -Follow cultures - sent from ER -Supplemental O2 as needed -Cefepime 1gm IV daily - HD dosing for pulmonary condition -Azithromycin for atypical coverage -Albuterol as needed At discharge -> Appears more comfortable today. Was on room air on my interview. Continue current abx. completed IV Antibiotics course (2) Lethargy: Most likely secondary to hypoxemia as above. Patient's mental status has improved since being in hospital. - Treatment as above - Continue to monitor (3) GERD (gastroesophageal reflux disease): Chronic. - Pepcid 40mg po daily (4) Current smoker: Patient declines nicotine patch. - Smoking cessation counseling (5) Nocturnal hypoxia: Saturation improved. - CPAP qHS at [id number] (6) ESRD (end stage renal disease) on dialysis: Patient with elevated K of 6.2 on admission. Was administered Calcium gluconate in the ER x 1. - HD in AM - Nephrology consultation appreciated - Renal dosing where needed - Continue PhosLo (7) Anemia in chronic kidney disease: Near baseline hgb of 10 - 11. No active bleed noted. - CBC in AM (8) Depression: Chronic. - Continue Escitalopram - Continue Buspirone (9) Hypertension: Blood pressure appropriately controlled. Today it is 150/75. - Continue Carvedilol - Continue Amlodipine - Continue Losartan (10) Hypothyroidism: Chronic. TSH was 2.3 in 11/2020. - Continue Synthroid (11) Diabetes mellitus: Chronic. A1c was 6.9% in 11/2020. - Continue Lantus, ISS - Goal blood sugar 100 - 140 -> Blood sugars 120 - 200 in last 24 hours. (12) Peripheral arterial disease: Chronic. Stable -Continue ASA and Atorvastatin (13) Altered mental status: Metabolic encephalopathy Patient presented with AMS, lethargy, and was found unresponsive at home. Risk Factor(s): Fever, pneumonia, respiratory failure/hypoxia Treatment: Head CT, O2, IV antibiotics, blood cultures Resolved. Total Time Total Time Spent Total Time Spent (In Minutes): 32 Discharge Plan Discharge Items Patient Disposition: Transfer Inpatient Rehab Fac Reason For Visit: FEVER, HYPOXIA, SOMNOLENCE Discharge Diagnosis: as above. Activity: Resume your previous activity Non-emergency contact: Primary Care Provider Call non-emergency contact if: you have any medication questions Follow-up/Referrals: Anaid Morgan CRNP [Primary Care Provider] - Diet: Regular Addtl Attending Provider Instructions: You have been hospitalized for an acute medical problem. During your stay at [facility], we have made an effort to correct the problem that brought you to the hospital while keeping you as comfortable as possible. Medications were used to bring your condition under control and your discharge instructions will include directions for any medications you should take after leaving the hospital. Please make sure you see your Primary Care Provider as part of your follow up plan. Pending Studies at Discharge: No Stand-Alone Forms: My [facility] [employer], Smoking Cessation Skilled Items Lines: None Urinary Catheter: No Medications and DC Order Prescriptions: Continued amlodipine 10 mg tablet 10 mg PO HS Qty: 90 RF: 3 aspirin 81 mg tablet,chewable 81 mg PO HS Qty: 90 RF: 3 buspirone 10 mg tablet 10 mg PO BID Qty: 180 RF: 3 escitalopram oxalate 10 mg tablet 10 mg PO DAILY Qty: 90 RF: 3 furosemide [Lasix] 80 mg tablet 80 mg PO BID Qty: 180 RF: 3 gabapentin 100 mg capsule 300 mg PO HS Qty: 270 RF: 3 levothyroxine 125 mcg tablet 125 mcg PO DAILYBB Qty: 90 RF: 3 losartan 50 mg tablet 50 mg PO DAILY Qty: 90 RF: 3 (DME) Reorg Researche 14 Day Sensor Kit See Dose Instructions .ROUTE .MEDSUPPLY Qty: 6 RF: 3 (DME) FreeStyle [place] 14 Day [place] [facility] See Rx Instructions .ROUTE .MEDSUPPLY Qty: 1 RF: 0 (DME) KHADAR LIFT See Rx Instructions .Route .MEDSUPPLY Qty: 1 RF: 0 prochlorperazine maleate [Compazine] 10 mg tablet 10 mg PO Q8H PRN (Reason: nausea and vomiting) Qty: 20 RF: 0 albuterol sulfate [ProAir HFA] 90 mcg/actuation HFA aerosol inhaler 1 inh inhalation QID PRN (Reason: shortness of breath or wheezing) Qty: 6.7 RF: 3 omeprazole 20 mg capsule,delayed release(DR/EC) 20 mg PO DAILY Qty: 30 RF: 11 carvedilol 12.5 mg tablet 12.5 mg PO BID Qty: 60 RF: 11 simvastatin 20 mg tablet 20 mg PO QPM Qty: 30 RF: 5 cholecalciferol (vitamin D3) 1,250 mcg (50,000 unit) capsule See Rx Instructions .ROUTE .COMPLEX Qty: 25 RF: 3 calcium carbonate [Calcium 500] 500 mg calcium (1,250 mg) tablet 500 mg PO 3XWK Qty: 36 RF: 3 nitroglycerin 0.4 mg tablet, sublingual 0.4 mg sublingual DIRECTED PRN (Reason: Chest Pain) RF: 0 Lantus U-100 Insulin 100 unit/mL Solution 16 unit SUBCUT QAM RF: 0 loperamide [Imodium A-D] 2 mg capsule 2 mg PO DIRECTED PRN (Reason: loose stool) RF: 0 calcium acetate(phosphat bind) 667 mg tablet 2,001 mg PO TIDM RF: 0 Discharge Orders: Discharge Order (Routine); Ordered 01/09/21 Ordered By: Van Barriga/Other Patient Handouts: Coping with Smoking Withdrawal Admission Data Admit Date/Time: 01/05/21 21:56 Attending Provider: Van Crowley Admit Provider: Felicita Steel Primary Care Provider: Anaid Morgan Other Providers: [facility] ; Girma Ugalde ; [facility] ; [facility] ; Felicita Steel ; Aron Romano Other Interventions: Discharge Summary Assessment (RN) Last Done: 01/09/21 13:01 Coding Level of Care Code D/C DAY MANAGEMENT >30 MINS Diagnoses Acute and chronic respiratory failure with hypoxia J96.21 Lethargy R53.83 GERD (gastroesophageal reflux disease) K21.9 Current smoker F17.200 Nocturnal hypoxia G47.34 ESRD (end stage renal disease) on dialysis N18.6; Z99.2 Anemia in chronic kidney disease N18.6; D63.1; Z99.2 Chronic kidney disease stage: on chronic dialysis Depression F32.9 Depression Type: unspecified Hypertension I10 Hypertension type: essential hypertension Hypothyroidism E03.9 Hypothyroidism type: unspecified Diabetes mellitus E11.9 Peripheral arterial disease I73.9 Altered mental status R41.82 Altered mental status type: unspecified
== END 2021-01-09 14:22 | DRG 193 ==
LOC: ED 19:27 → SUATTDRO 21:56 → 2S 21:56 → 3N 01-07 15:05
DX: N25.81 Secondary hyperparathyroidism of renal origin; J18.9 Pneumonia, unspecified organism; E03.9 Hypothyroidism, unspecified; Z79.82 Long term (current) use of aspirin; F17.210 Nicotine dependence, cigarettes, uncomplicated; G47.33 Obstructive sleep apnea (adult) (pediatric); D72.829 Elevated white blood cell count, unspecified; Z99.81 Dependence on supplemental oxygen; K21.9 Gastro-esophageal reflux disease without esophagitis; J96.21 Acute and chronic respiratory failure with hypoxia; R53.81 Other malaise; M19.90 Unspecified osteoarthritis, unspecified site; E11.51 Type 2 diabetes mellitus with diabetic peripheral angiopathy without gangrene; E11.21 Type 2 diabetes mellitus with diabetic nephropathy; N18.6 End stage renal disease; G93.41 Metabolic encephalopathy; Z91.018 Allergy to other foods; E11.42 Type 2 diabetes mellitus with diabetic polyneuropathy; Z79.890 Hormone replacement therapy; Z83.3 Family history of diabetes mellitus; F41.9 Anxiety disorder, unspecified; E11.22 Type 2 diabetes mellitus with diabetic chronic kidney disease; Z79.4 Long term (current) use of insulin; E78.5 Hyperlipidemia, unspecified; F32.9 Major depressive disorder, single episode, unspecified; D63.1 Anemia in chronic kidney disease; Z79.899 Other long term (current) drug therapy; Z99.2 Dependence on renal dialysis; I12.0 Hypertensive chronic kidney disease with stage 5 chronic kidney disease or end stage renal disease; E87.5 Hyperkalemia; Z87.01 Personal history of pneumonia (recurrent)

== ENCOUNTER 2021-04-04 19:38 | Observation (INO) ==
--- NOTE | 2021-04-04 20:35 | Emergency Department Note ---
History of Present Illness General Chief complaint: Vertigo Stated complaint: Dizzy/Confusion/Falls/L Arm swelling Time Seen by Provider: 04/04/21 20:15 Source: patient, RN notes reviewed and old records reviewed Mode of arrival: EMS Limitations: no limitations History of Present Illness This patient was brought in by EMS after having multiple different complaints. He has a very complex medical history he has chronic weakness of his legs and arm and is a dialysis patient with diabetes. He has been having increasing shortness of breath. He tends to fall which she says is not new his left hand and wrist and arm have been swollen for at least several days he feels dizzy at times when getting up he did miss dialysis recently and is scheduled to have dialysis tomorrow on Tuesday after missing on Tuesday. He does not make any urine. No chest pain he has had some cough and shortness of breath at times questionable fever. He apparently is prone to pneumonia. No blood or melena stool. He lives at home but does require care from his son and a caregiver. No new numbness or weakness. Home Medications Medication Instructions Recorded Confirmed Type amlodipine 10 mg tablet 10 mg PO HS #90 tab 06/26/20 04/04/21 Rx aspirin 81 mg chewable tablet 81 mg PO HS #90 tab 06/26/20 04/04/21 Rx buspirone 10 mg tablet 10 mg PO BID #180 tab 06/26/20 04/04/21 Rx escitalopram oxalate 10 mg tablet 10 mg PO DAILY #90 tab 06/26/20 04/04/21 Rx furosemide 80 mg tablet (Lasix) 80 mg PO BID #180 tab 06/26/20 04/04/21 Rx gabapentin 100 mg capsule 300 mg PO HS #270 cap 06/26/20 04/04/21 Rx levothyroxine 125 mcg tablet 125 mcg PO DAILYBB #90 tab 06/26/20 04/04/21 Rx losartan 50 mg tablet 50 mg PO DAILY #90 tab 06/26/20 04/04/21 Rx nitroglycerin 0.4 mg sublingual 0.4 mg SUBLINGUAL DIRECTED PRN 07/11/20 04/04/21 History tablet prochlorperazine maleate 10 mg 10 mg PO Q8H PRN #20 tab 09/15/20 04/04/21 Rx tablet (Compazine) carvedilol 12.5 mg tablet 12.5 mg PO BID #60 tab 11/06/20 04/04/21 Rx omeprazole 20 mg capsule,delayed 20 mg PO DAILY #30 cap 11/06/20 04/04/21 Rx release simvastatin 20 mg tablet 20 mg PO QPM #30 tab 11/07/20 04/04/21 Rx insulin glargine 100 unit/mL 16 unit SUBCUT QAM 01/05/21 04/04/21 History subcutaneous solution (Lantus U-100 Insulin) loperamide 2 mg capsule (Imodium 2 mg PO DIRECTED PRN 01/05/21 04/04/21 History A-D) HYDRAULIC KHADAR LIFT #1 ea 01/26/21 03/13/21 Rx FreeStyle Virgil 14 Day Sensor #6 ea NS 02/24/21 03/13/21 Rx (flash glucose sensor) FreeStyle Virgil 14 Day [place] #1 ea NS 03/08/21 03/13/21 Rx (flash glucose scanning reader) nystatin 100,000 unit/gram topical 1 applic TOPICAL BID PRN 04/04/21 04/04/21 History powder sevelamer carbonate 800 mg tablet 2,400 mg PO TIDM 04/04/21 04/04/21 History Allergies Allergy/AdvReac Type Severity Reaction Status Date / Time lactose Allergy Intermediate Gastrointestinal Verified 04/04/21 22:34 Upset No Known Drug Allergies Allergy NKDA Verified 04/04/21 22:34 Past Med/Surg History Medical History (Updated 04/05/21 @ 00:41 by Raimundo Weeks MD) Acute hyperkalemia Anemia in chronic kidney disease Anxiety Aspiration into lower respiratory tract Cellulitis of leg, right Dyslipidemia Dysphagia Excessive cerumen in both ear canals GERD (gastroesophageal reflux disease) Left lower lobe pneumonia LLL pneumonia On home oxygen therapy 2L n/c with cpap at HS Osteoarthritis Peripheral arterial disease Peripheral neuropathy bilt legs/feet Pleural effusion, left Secondary hyperparathyroidism of renal origin Sepsis Surgical History History of bilateral cataract extraction History of cardiac cath 01/2018 "about 2-3 weeks"; no stents placed @ [facility] by Dr. Coronel History of carpal tunnel release R wrist History of colonoscopy History of repair of anterior cruciate ligament of left knee History of repair of anterior cruciate ligament of right knee History of tonsillectomy History of tooth extraction wisdom teeth Family History Mother Family history of diabetes mellitus Grandmother Family history of diabetes mellitus maternal Other Colorectal cancer Inflammatory bowel disease Melanoma Social History Smoking Status: Current every day smoker Tobacco Type: Cigarettes Age Started Using Tobacco: 15; Cigarettes Per Day: 15 a day; Second Hand Exposure: Yes; Hx Alcohol Use: No Hx Substance Use: No Preferred Language: Kinyarwanda Communication Ability: Effective Operation Specialist Required: No Beliefs That Will Affect Care: None marital status: Single Current Living Situation: Family Current Living Situation Comment: [facility] current occupational status: retired How many Children do You have: 2 Feels Safe at Home: Yes Seatbelt Use: always Assistive Devices: CPAP Review of Systems A total of 10 systems reviewed and were otherwise negative Physical Exam Vital Signs Vital Signs - 24 hr 04/04/21 19:29 04/04/21 19:56 04/04/21 20:25 Temperature 37.2 C Temperature Source Oral Pulse Rate 66 Pulse Rate [Apical] 64 Respiratory Rate 20 27 H Respiratory Effort / Characteristics Non-Labored Spontaneous Respiratory Depth Normal Blood Pressure 158/73 H Blood Pressure [Left Arm] Blood Pressure Mean 101 Blood Pressure Mean [Left Arm] Pulse Oximetry 89 L 93 95 Oxygen Delivery Method Room Air Nasal Cannula Nasal Cannula Oxygen Flow Rate 3 3 Sepsis Recent Fever Within 48 Hours Yes Sepsis New/Unexplained Change in Mental Status N/A Sepsis Action Taken by Nursing No Action Required 04/04/21 21:36 04/04/21 21:56 04/04/21 23:56 Temperature Temperature Source Pulse Rate Pulse Rate [Apical] 64 64 63 Respiratory Rate 20 25 H 21 Respiratory Effort / Characteristics Respiratory Depth Blood Pressure Blood Pressure [Left Arm] 152/69 H 157/68 H 169/82 H Blood Pressure Mean Blood Pressure Mean [Left Arm] 96 97 111 Pulse Oximetry 98 97 97 Oxygen Delivery Method Nasal Cannula Nasal Cannula Nasal Cannula Oxygen Flow Rate 3 3 3 Sepsis Recent Fever Within 48 Hours Sepsis New/Unexplained Change in Mental Status Sepsis Action Taken by Nursing General: Well developed well nourished chronically ill-appearing older male who appears in no acute distress he has 2 L nasal cannula on he appears to be answering all questions appropriately. In no acute distress, breathing comfortably on room air. Normal speech HEENT: Normal cephalic atraumatic. Pupils are equal round and reactive to light. Extraocular movements are intact. Oropharynx is pink with moist mucous membranes. No swelling of the mouth lips or tongue. Neck: Supple with a midline trachea. No meningeal signs or stiffness, no JVD or bruits. No Stridor. Chest: Clear to auscultation bilaterally. No wheezes or rhonchi. No increased work of breathing. Heart: Regular rate and rhythm without murmurs or gallops. Abdomen: Soft nontender, nondistended without rebound guarding or rigidity. Extremities: No cyanosis clubbing or edema. No calf tenderness or assymetry. He has baseline contractures of the left hand which she says is unchanged there is some mild swelling of the left hand and wrist. He has a dialysis fistula in the proximal arm on that side. He has 2+ distal pulses Spine/Back. Non tender to palpation. No CVA tenderness Skin: Good turgor without rashes. Neurologic exam: Cranial nerves two through 12 are intact. He has baseline weakness of both legs but is able to move his feet and is nonfocal. He has baseline contracture of left arm. He says this is unchanged. Course Administered Medications Discontinued Medications Calcium Gluconate (Calcium Gluconate 1000 Mg/60 Ml Nss) Confirm Administered Dose 1,000 mg IV .STK-MED ONE Stop: 04/04/21 21:43 Last Admin: 04/04/21 21:53 Dose: 1,000 mg Documented by: [id number] Dextrose (Dextrose 50% 50 Ml Syringe) 50 ml IV NOW STA Stop: 04/04/21 21:36 Last Admin: 04/04/21 21:53 Dose: 50 ml Documented by: [id number] Calcium Gluconate 1,000 mg/ (Sodium Chloride) 60 mls @ 240 mls/hr IV NOW STA Stop: 04/04/21 21:49 Last Admin: 04/04/21 22:18 Dose: Not Given Documented by: [id number] Insulin Human Regular 10 units (/ Syringe) 9.9 mls @ 3 mls/sec IV ONE STA Stop: 04/04/21 21:36 Last Admin: 04/04/21 22:13 Dose: 3 mls/sec Documented by: [id number] Cosigned by: [id number] Sodium Bicarbonate 150 meq/ (Dextrose) 1,150 mls @ 290 mls/hr IV .Q3H58M STA Stop: 04/05/21 01:32 Last Admin: 04/04/21 22:21 Dose: Not Given Documented by: [id number] Sodium Bicarbonate (Sodium Bicarb 8.4% Inj 50 Meq/50 Ml Syr) 50 meq IV NOW STA Stop: 04/04/21 22:19 Last Admin: 04/04/21 22:23 Dose: 50 meq Documented by: [id number] Critical Care Time Critical Care Time: Yes Total Critical Care Time: 40 Due to the patient's significant metabolic abnormalities, need for multiple IV medications, consultation with medicine and nephrology as well as frequent reassessment and extensive work-up, I have personally spent greater than 40 minutes of critical care time in the direct management of this patient. This includes bedside care, interpretation of diagnostic studies, and testing, discussion with consultants, patient, and family members, and other required patient management activities. This 40 minutes is in excess of all separately billable procedures. Medical Decision Making Differential Diagnosis Fluid overload/CHF, infection, Covid, central neurologic process, anemia, trauma, electrolyte or metabolic abnormality, cardiac disease, diabetic complication Medical Records Attestation: I reviewed the patient's medical records. Home Medications Current Medication List: was personally reviewed by me Laboratory Data Attestation: I reviewed the patient's lab results. Result diagrams: 04/04/21 19:57 04/04/21 19:57 Lab Results 04/04/21 04/04/21 04/04/21 Range/Units 19:57 19:57 19:57 WBC 13.66 H (4.8-10.8) K/uL RBC 3.38 L (4.7-6.1) M/uL Hgb 10.8 L (14.0-18.0) g/dL Hct 33.2 L (42-52) % MCV 98.2 (80-100) fL MCH 32.0 (25-34) pg MCHC 32.5 (32-36) g/dL RDW Std Deviation 52.0 H (36.4-46.3) fL RDW Coeff of Jorge A 14.6 H (11.5-14.5) % Plt Count 192 (130-400) K/uL MPV 10.8 H (7.4-10.4) fL Immature Gran % (Auto) 0.4 % Neut % (Auto) 80.6 % Lymph % (Auto) 11.5 % [place] % (Auto) 5.9 % Eos % (Auto) 1.4 % Baso % (Auto) 0.2 % Neut # (Auto) 11.00 H (1.4-6.5) K/uL Lymph # (Auto) 1.57 (1.2-3.4) K/uL [place] # (Auto) 0.81 H (0.11-0.59) K/uL Eos # (Auto) 0.19 (0-0.5) K/uL Baso # (Auto) 0.03 (0-0.2) K/uL Immature Gran # (Auto) 0.06 H (0.00-0.02) K/uL PT 12.6 H (9.0-12.0) Seconds INR 1.3 H (0.9-1.1) APTT 31.4 H (21.0-31.0) Seconds PTT Ratio 1.2 ABG pH (7.35-7.45) ABG pCO2 (35-46) mmHg ABG pO2 (80-95) mmHg ABG HCO3 (19-24) mmol/L ABG O2 Saturation (90-95) % ABG Base Excess (-9-1.8) mEq/L Hemant Test (Pos) Barometric Pressure mm/Hg Oxygen Given Sodium 130 L (136-145) mmol/L Potassium 7.1 H* (3.5-5.1) mmol/L Chloride 95 L (98-107) mmol/L Carbon Dioxide 26 (21-32) mmol/L Anion Gap 9.0 (3-11) BUN 93 H (7-18) mg/dl Creatinine 11.70 H* (0.6-1.4) mg/dl Est Cr Clr Drug Dosing 8.7 ml/min Est GFR ( Amer) 4.7 ml/min Est GFR (Non-Af Amer) 4.0 ml/min BUN/Creatinine Ratio 8.0 L (10-20) Glucose 100 H (70-99) mg/dl Calcium 8.9 (8.5-10.1) mg/dl Magnesium 2.5 H (1.8-2.4) mg/dl Total Bilirubin 0.5 (0.2-1) mg/dl AST 12 L (15-37) U/L ALT 20 (12-78) Alkaline Phosphatase 89 (45-117) U/L Troponin I < 0.015 (0-0.045) ng/ml Total Protein 7.5 (6.4-8.2) gm/dl Albumin 3.2 L (3.4-5.0) gm/dl Globulin 4.3 H (2.5-4.0) gm/dl Albumin/Globulin Ratio 0.7 L (0.9-2) TSH 0.724 (0.300-4.500) uIu/ml SARS-CoV-2 (PCR) (Negative) Influenza Type A (PCR) (Neg) Influenza Type B (PCR) (Neg) RSV (RT-PCR) (Neg) 04/04/21 04/05/21 Range/Units 20:38 00:19 WBC (4.8-10.8) K/uL RBC (4.7-6.1) M/uL Hgb (14.0-18.0) g/dL Hct (42-52) % MCV (80-100) fL MCH (25-34) pg MCHC (32-36) g/dL RDW Std Deviation (36.4-46.3) fL RDW Coeff of Jorge A (11.5-14.5) % Plt Count (130-400) K/uL MPV (7.4-10.4) fL Immature Gran % (Auto) % Neut % (Auto) % Lymph % (Auto) % [place] % (Auto) % Eos % (Auto) % Baso % (Auto) % Neut # (Auto) (1.4-6.5) K/uL Lymph # (Auto) (1.2-3.4) K/uL [place] # (Auto) (0.11-0.59) K/uL Eos # (Auto) (0-0.5) K/uL Baso # (Auto) (0-0.2) K/uL Immature Gran # (Auto) (0.00-0.02) K/uL PT (9.0-12.0) Seconds INR (0.9-1.1) APTT (21.0-31.0) Seconds PTT Ratio ABG pH 7.37 (7.35-7.45) ABG pCO2 43 (35-46) mmHg ABG pO2 79 L (80-95) mmHg ABG HCO3 25 H (19-24) mmol/L ABG O2 Saturation 95.4 H (90-95) % ABG Base Excess -0.7 (-9-1.8) mEq/L Hemant Test POS (Pos) Barometric Pressure 722.0 mm/Hg Oxygen Given 4 L Sodium (136-145) mmol/L Potassium (3.5-5.1) mmol/L Chloride (98-107) mmol/L Carbon Dioxide (21-32) mmol/L Anion Gap (3-11) BUN (7-18) mg/dl Creatinine (0.6-1.4) mg/dl Est Cr Clr Drug Dosing ml/min Est GFR ( Amer) ml/min Est GFR (Non-Af Amer) ml/min BUN/Creatinine Ratio (10-20) Glucose (70-99) mg/dl Calcium (8.5-10.1) mg/dl Magnesium (1.8-2.4) mg/dl Total Bilirubin (0.2-1) mg/dl AST (15-37) U/L ALT (12-78) Alkaline Phosphatase (45-117) U/L Troponin I (0-0.045) ng/ml Total Protein (6.4-8.2) gm/dl Albumin (3.4-5.0) gm/dl Globulin (2.5-4.0) gm/dl Albumin/Globulin Ratio (0.9-2) TSH (0.300-4.500) uIu/ml SARS-CoV-2 (PCR) NEGATIVE (Negative) Influenza Type A (PCR) Negative (Neg) Influenza Type B (PCR) Negative (Neg) RSV (RT-PCR) Negative (Neg) Imaging Data Attestation: I personally reviewed and interpreted this imaging study as follows: My Impression: Chest x-rayfluid overload/CHF Left hand and wrist x-rayno fracture or dislocation or bony abnormality. Soft tissue swelling Radiologist's Impression: Hand X-Ray 04/04/21 20:25 XR wrist LT min 3V routine, XR hand LT min 3V routine HISTORY: 65 years-old Male eval for fracture acute pain of the left hand and wrist status post fall COMPARISON: None TECHNIQUE: 4 views of the left wrist with 3 views of the left hand FINDINGS: WRIST: Moderate triscaphe and first carpometacarpal osteoarthritis. Diffuse soft tissue swelling of the distal forearm, wrist and hand. No acute fracture, dislocation, osseous erosion or opaque foreign body. Arterial calcifications. HAND: Diffuse moderate soft tissue swelling. No acute fracture, dislocation or osseous erosion. Arterial calcifications. Punctate radiodense focus projects over the thenar tissues on the PA view. IMPRESSION: Diffuse soft tissue swelling without acute fracture or dislocation. ACT 112: Negative or not required by law. The above report was generated using voice recognition software. It may contain grammatical, syntax or spelling errors. Electronically signed by: Diony Baxter M.D. 04/04/2021 9:36 PM Wrist X-Ray 04/04/21 20:25 XR wrist LT min 3V routine, XR hand LT min 3V routine HISTORY: 65 years-old Male eval for fracture acute pain of the left hand and wrist status post fall COMPARISON: None TECHNIQUE: 4 views of the left wrist with 3 views of the left hand FINDINGS: WRIST: Moderate triscaphe and first carpometacarpal osteoarthritis. Diffuse soft tissue swelling of the distal forearm, wrist and hand. No acute fracture, dislocation, osseous erosion or opaque foreign body. Arterial calcifications. HAND: Diffuse moderate soft tissue swelling. No acute fracture, dislocation or osseous erosion. Arterial calcifications. Punctate radiodense focus projects over the thenar tissues on the PA view. IMPRESSION: Diffuse soft tissue swelling without acute fracture or dislocation. ACT 112: Negative or not required by law. The above report was generated using voice recognition software. It may contain grammatical, syntax or spelling errors. Electronically signed by: Dinoy Baxter M.D. 04/04/2021 9:36 PM Chest X-Ray 04/04/21 20:26 XR chest 1V portable HISTORY: 65 years-old Male sob acute shortness of breath. COMPARISON: Chest radiograph 07/22/2020, chest CT 01/05/2021 TECHNIQUE: Portable semierect AP view of the chest FINDINGS: Electronic device is again noted projecting over the right chest. Pulmonary vascular congestion with interstitial coarsening. Trace right and small left pleural effusions with mild left lung base consolidation, similar to prior. Degenerative changes of the shoulders and spine. IMPRESSION: 1. Cardiomegaly with pulmonary edema. 2. Unchanged trace right and small left pleural effusions with chronic left basilar consolidation. ACT 112: Negative or not required by law. The above report was generated using voice recognition software. It may contain grammatical, syntax or spelling errors. Electronically signed by: Diony Baxter M.D. 04/04/2021 9:[address] 04/04/21 20:26 CT head/brain wo con CLINICAL HISTORY: 65 years-old Male with syncope. Acute syncope with head trauma TECHNIQUE: Multiple axial CT images of the head were obtained without contrast. A dose lowering technique was utilized adhering to the principles of ALARA. CT DOSE: 1651.11 mGy.cm COMPARISON: Head CT 01/05/2021 FINDINGS: No acute intracranial hemorrhage, midline shift, intracranial mass, hydrocephalus, territorial ischemia or abnormal extra-axial collection. Age- related involutional changes. White matter hypodensities suggest chronic microvascular ischemic disease. Study is motion degraded. Calcifications of the falx cerebri. The calvarium is intact. Prior bilateral lens repair. Mild mucosal thickening of the maxillary sinuses with small focus of polypoid mucosal thickening within the left maxillary antrum. Trace mastoid effusions. IMPRESSION: No acute intracranial abnormality or calvarial fracture. ACT 112: Negative or not required by law. The above report was generated using voice recognition software. It may contain grammatical, syntax or spelling errors. Electronically signed by: Diony Baxter M.D. 04/04/2021 10:59 PM ECG Data Attestation: I personally reviewed and interpreted this ECG as follows: Indication: + SOB/dyspnea Rate (beats per minute): 64 Rhythm: + normal sinus ECG Intervals/blocks: + First degree AV block, + Normal QRS and + Normal QT ECG [place]: + Normal ECG ST segments: + Normal ST segments ECG Findings: + Poor R wave progression Comparison ECG Date: from (04/01/21) Change: the following changes noted (04/01/21) MDM Narrative This patient is a 65-year-old male who comes with multiple different complaints has been short of breath and dizzy he has stable vital signs. He has very complex medical history. He is also missed dialysis. IV access was established, chest x-ray, EKG and multiple blood testing was obtained. EKG does not show any ischemic changes or ectopy his T waves are not peaked and there is no obvious hyperkalemic changes initially. Multiple blood testing was obtained also the CAT scan of his head given the fact that he is a dialysis patient and tends to fall I did x-rays of the left hand and arm. He was reassessed frequent ly. He is remained stable. His chest x-ray does show fluid overload. His potassium came back elevated at 7.1. These are both consistent with him missing dialysis. I did order IV calcium chloride, IV bicarb, IV insulin, IV glucose as per our protocol. His Covid testing was negative. He will need to be admitted for further treatment and evaluation of consulted Dr. Limon to see him for these measures. I also discussed case with Dr. Romano, the on-call emergency department director he agrees with medical care/management and the patient will be dialyzed in the morning. The patient's CAT scan of his head was also unremarkable. Continuous cardiac monitoring: Orders placed in EMR for continuous potline monitor. Upon my interpretation the patient was noted to be in normal sinus rhythm with a rate of 65 Impression & Plan Acute hyperkalemia, Dialysis patient, Lab test negative for COVID-19 virus, Missed dialysis, Pulmonary edema Discharge Plan Visit Data Chief Complaint: Vertigo Stated Complaint: Dizzy/Confusion/Falls/L Arm swelling ED Provider: Raimundo Weeks Discharge Problem: Acute hyperkalemia, Dialysis patient, Lab test negative for COVID-19 virus, Missed dialysis, Pulmonary edema Forms Stand Alone Forms: [facility] Prescriptions Prescriptions: No Action amlodipine 10 mg tablet 10 mg PO HS Qty: 90 RF: 3 aspirin 81 mg tablet,chewable 81 mg PO HS Qty: 90 RF: 3 buspirone 10 mg tablet 10 mg PO BID Qty: 180 RF: 3 escitalopram oxalate 10 mg tablet 10 mg PO DAILY Qty: 90 RF: 3 furosemide [Lasix] 80 mg tablet 80 mg PO BID Qty: 180 RF: 3 gabapentin 100 mg capsule 300 mg PO HS Qty: 270 RF: 3 levothyroxine 125 mcg tablet 125 mcg PO DAILYBB Qty: 90 RF: 3 losartan 50 mg tablet 50 mg PO DAILY Qty: 90 RF: 3 prochlorperazine maleate [Compazine] 10 mg tablet 10 mg PO Q8H PRN (Reason: nausea and vomiting) Qty: 20 RF: 0 omeprazole 20 mg capsule,delayed release(DR/EC) 20 mg PO DAILY Qty: 30 RF: 11 carvedilol 12.5 mg tablet 12.5 mg PO BID Qty: 60 RF: 11 simvastatin 20 mg tablet 20 mg PO QPM Qty: 30 RF: 5 (DME) HYDRAULIC KHADAR LIFT See Rx Instructions .Route .MEDSUPPLY Qty: 1 RF: 0 (DME) FreeStyle Virgil 14 Day Sensor Kit See Dose Instructions .ROUTE .MEDSUPPLY Qty: 6 RF: 3 (DME) FreeStyle Virgil 14 Day [place] Misc See Rx Instructions .ROUTE .MEDSUPPLY Qty: 1 RF: 5 nitroglycerin 0.4 mg tablet, sublingual 0.4 mg sublingual DIRECTED PRN (Reason: Chest Pain) RF: 0 Lantus U-100 Insulin 100 unit/mL Solution 16 unit SUBCUT QAM RF: 0 loperamide [Imodium A-D] 2 mg capsule 2 mg PO DIRECTED PRN (Reason: loose stool) RF: 0 nystatin 100,000 unit/gram powder 1 applic topical BID PRN (Reason: irritation) RF: 0 sevelamer carbonate 800 mg tablet 2,400 mg PO TIDM RF: 0 Referrals Referrals: Veto Gan DO [Primary Care Provider] - Discharge Problem: Pulmonary edema Qualifiers: Chronicity: acute Qualified Code(s): J81.0 - Acute pulmonary edema
[2021-04-04 21:04] LABS: Basophils # (auto) 0.03 K/uL (0-0.2); Basophils % (auto) 0.2 %; Eosinophils # (auto) 0.19 K/uL (0-0.5); Eosinophils % (auto) 1.4 %; Hematocrit (blood only) 33.2 % (42-52); Hemoglobin 10.8 g/dL (14.0-18.0); Immature Granulocytes # (auto) 0.06 K/uL (0.00-0.02); Immature Granulocytes % (auto) 0.4 %; Lymphocytes # (auto) 1.57 K/uL (1.2-3.4); Lymphocytes % (auto) 11.5 %; Mean Corpuscular Hgb Conc 32.5 g/dL (32-36); Mean Corpuscular Volume 98.2 fL (80-100); Mean Platelet Volume 10.8 fL (7.4-10.4); Monocytes # (auto) 0.81 K/uL (0.11-0.59); Monocytes % (auto) 5.9 %; Neutrophils % (auto) 80.6 %; Platelet Count 192 K/uL (130-400); RDW Coefficient of Variation 14.6 % (11.5-14.5); Red Blood Count 3.38 M/uL (4.7-6.1); White Blood Count 13.66 K/uL (4.8-10.8)
[2021-04-04 21:14] LABS: INR 1.3 (0.9-1.1); Partial Thromboplastin Ratio 1.2; Partial Thromboplastin Time 31.4 Seconds (21.0-31.0); Prothrombin Time 12.6 Seconds (9.0-12.0)
[2021-04-04 21:22] LABS: Influenza A virus by PCR Negative (Neg); Influenza B virus by PCR Negative (Neg); RSV by PCR Negative (Neg); SARS CoV2 RNA(COVID-19) InHosp NEGATIVE (Negative)
--- NOTE | 2021-04-04 21:27 | XRay Report ---
XR chest 1V portable HISTORY: 65 years-old Male sob acute shortness of breath. COMPARISON: Chest radiograph 07/22/2020, chest CT 01/05/2021 TECHNIQUE: Portable semierect AP view of the chest FINDINGS: Electronic device is again noted projecting over the right chest. Pulmonary vascular congestion with interstitial coarsening. Trace right and small left pleural effusions with mild left lung base consol idation, similar to prior. Degenerative changes of the shoulders and spine. IMPRESSION: 1. Cardiomegaly with pulmonary edema. 2. Unchanged trace right and small left pleural effusions with chronic left basilar consolidation. ACT 112: Negative or not required by law. The above report was generated using voice recognition software. It may contain grammatical, syntax o r spelling errors. Electronically signed by: Diony Baxter M.D. 04/04/2021 9:26 PM
[2021-04-04 21:29] LABS: Alanine Aminotransferase 20 (12-78); Albumin Globulin Ratio 0.7 (0.9-2); Albumin Level 3.2 gm/dl (3.4-5.0); Alkaline Phosphatase 89 U/L (45-117); Aspartate Aminotransferase 12 U/L (15-37); Blood Urea Nitrogen 93 mg/dl (7-18); Calcium 8.9 mg/dl (8.5-10.1); Carbon Dioxide 26 mmol/L (21-32); Chloride 95 mmol/L (98-107); Creatinine Clr Calc Pharmacy 8.7 ml/min; Est GFR (African American) 4.7 ml/min; Globulin 4.3 gm/dl (2.5-4.0); Glucose 100 mg/dl (70-99); Magnesium 2.5 mg/dl (1.8-2.4); Potassium 7.1 mmol/L (3.5-5.1); Sodium 130 mmol/L (136-145); Thyroid Stimulating Hormone 0.724 uIu/ml (0.300-4.500); Total Protein 7.5 gm/dl (6.4-8.2); Troponin I < 0.015 ng/ml (0-0.045)
[2021-04-04] MEDS ORDERED: DEXTROSE 50% 50 ML SYRINGE IV STA (21:35)
[2021-04-04] MEDS ORDERED: CALCIUM GLUCONATE 10% 1,000 MG in SODIUM CHLORIDE 0.9% 50 ML IV STA (21:35)
[2021-04-04] MEDS ORDERED: SODIUM BICARBONATE 8.4% 150 MEQ in DEXTROSE 5% 1,000 ML IV STA (21:35)
[2021-04-04] MEDS ORDERED: INSULIN HUMAN REGULAR PER UNIT 10 UNITS in SYRINGE 9.9 ML IV STA (21:35)
--- NOTE | 2021-04-04 21:38 | XRay Report ---
XR wrist LT min 3V routine, XR hand LT min 3V routine HISTORY: 65 years-old Male eval for fracture acute pain of the left hand and wrist status post fall COMPARISON: None TECHNIQUE: 4 views of the left wrist with 3 views of the left hand FINDINGS: WRIST: Moderate triscaphe and first carpometacarpal osteoarthritis. Diffuse soft tissue swelling of the dist al forearm, wrist and hand. No acute fracture, dislocation, osseous erosion or opaque foreign body. A rterial calcifications. HAND: Diffuse moderate soft tissue swelling. No acute fracture, dislocation or osseous erosion. Arterial ca lcifications. Punctate radiodense focus projects over the thenar tissues on the PA view. IMPRESSION: Diffuse soft tissue swelling without acute fracture or dislocation. ACT 112: Negative or not required by law. The above report was generated using voice recognition software. It may contain grammatical, syntax o r spelling errors. Electronically signed by: Diony Baxter M.D. 04/04/2021 9:36 PM
[2021-04-04] MEDS ORDERED: CALCIUM GLUCONATE 1000 MG/60 ML NSS IV ONE (21:42)
[2021-04-04 22:14] LABS: Bilirubin,Total 0.5 mg/dl (0.2-1)
[2021-04-04] MEDS ORDERED: SODIUM BICARB 8.4% INJ 50 MEQ/50 ML SYR IV STA (22:18)
--- NOTE | 2021-04-04 23:00 | CT Scan Report ---
CT head/brain wo con CLINICAL HISTORY: 65 years-old Male with syncope. Acute syncope with head trauma TECHNIQUE: Multiple axial CT images of the head were obtained without contrast. A dose lowering tech nique was utilized adhering to the principles of ALARA. CT DOSE: 1651.11 mGy.cm COMPARISON: Head CT 01/05/2021 FINDINGS: No acute intracranial hemorrhage, midline shift, intracranial mass, hydrocephalus, territorial ischem ia or abnormal extra-axial collection. Age-related involutional changes. White matter hypodensities s uggest chronic microvascular ischemic disease. Study is motion degraded. Calcifications of the falx c erebri. The calvarium is intact. Prior bilateral lens repair. Mild mucosal thickening of the maxillary sinuse s with small focus of polypoid mucosal thickening within the left maxillary antrum. Trace mastoid eff usions. IMPRESSION: No acute intracranial abnormality or calvarial fracture. ACT 112: Negative or not required by law. The above report was generated using voice recognition software. It may contain grammatical, syntax o r spelling errors. Electronically signed by: Diony Baxter M.D. 04/04/2021 10:59 PM
[2021-04-04] MEDS ORDERED: PATIROMER CALCIUM SORBITEX 8.4 GM PACK PO STA (23:09)
--- NOTE | 2021-04-04 23:09 | History & Physical Report ---
Date of Service April 04, 2021 Assessment & Plan (1) Anemia in chronic kidney disease: Plan: 65 yo M chronically ill with multiple comorbidities including ESRD on HD, DM2 with polyneuropathy, Anemia of chronic disease, PAD, Chronic hypoxic respiratory failure on 2L NC, morbid obesity, HTN, suzie's thyroiditis, depression and recurrent falls, admitted for electrolyte abnormalities and weakness after missing dialysis on Apr 01. Hyperkalemia/Metabolic Derangements secondary to missed HD appointment - medically managing per nephrology recommendations - K 7.1 on admission, Cr 11.7, Na 130 - received regular insulin 10u IV, Ca gluconate x1, patiromer x 1 in ER - BMP Q4h - [facility] consulted, to have HD 04/05/21 - EKG daily - cont sevelamer TID, lasix PO 80 BID Chronic Hypoxic Respiratory Failure with JANET on CPAP - baseline O2 requirement of 2L NC, currently on 3L - active smoker 0.75 ppd, not interested in quitting - cpap HS - abg ordered given somnolence for evaluation of hypercarbia - PRN duoneb for SOB Chronic Conditions GERD: cont omeprazole DM2: cont lantus 16u AM HTN: cont amlodipine, carvedilol Depression: cont lexapro PAD: cont asa, statin DVT ppx: heparin sq BID FEN/GI: dialysis diet Code Status: Full Code Dispo: Med/Tele. prior PT recommendation for 25/10 care at home vs. placement to ECF (2) ESRD (end stage renal disease) on dialysis: (3) Suzie's thyroiditis: (4) Hypertension: (5) Hypothyroidism: (6) Obstructive sleep apnea: (7) Depression: (8) Secondary hyperparathyroidism of renal origin: (9) Diabetic neuropathy: (10) On home oxygen therapy: (11) Morbid obesity: (12) Current smoker: (13) Peripheral arterial disease: (14) GERD (gastroesophageal reflux disease): (15) Diabetic peripheral neuropathy associated with type 2 diabetes mellitus: (16) Diabetes mellitus: History of Present Illness Primary Care Provider: Veto Gan, 65 yo chronically ill male with hx ESRD on HD, Dm2, HTN, PAD, GERD, CKD with anemia, Depression, hypothyroidism who presents to ER for generalized weakness. Per ER provider, he lives at home alone but is cared for by his son and a nurse. he missed his dialysis on Tuesday and is supposed to have dialysis tomorrow (tuesday). He follows with [facility] nephrology. Attempted to interview patient however he was very somnolent, drifting in and out of sleep. Did say he felt better at the time of interview than he had prior. Allergies Allergy/AdvReac Type Severity Reaction Status Date / Time lactose Allergy Intermediate Gastrointestinal Verified 04/04/21 22:34 Upset No Known Drug Allergies Allergy NKDA Verified 04/04/21 22:34 Home Medications Medication Instructions Recorded Confirmed Type amlodipine 10 mg tablet 10 mg PO HS #90 tab 06/26/20 04/04/21 Rx aspirin 81 mg chewable tablet 81 mg PO HS #90 tab 06/26/20 04/04/21 Rx buspirone 10 mg tablet 10 mg PO BID #180 tab 06/26/20 04/04/21 Rx escitalopram oxalate 10 mg tablet 10 mg PO DAILY #90 tab 06/26/20 04/04/21 Rx furosemide 80 mg tablet (Lasix) 80 mg PO BID #180 tab 06/26/20 04/04/21 Rx gabapentin 100 mg capsule 300 mg PO HS #270 cap 06/26/20 04/04/21 Rx levothyroxine 125 mcg tablet 125 mcg PO DAILYBB #90 tab 06/26/20 04/04/21 Rx losartan 50 mg tablet 50 mg PO DAILY #90 tab 06/26/20 04/04/21 Rx nitroglycerin 0.4 mg sublingual 0.4 mg SUBLINGUAL DIRECTED PRN 07/11/20 04/04/21 History tablet prochlorperazine maleate 10 mg 10 mg PO Q8H PRN #20 tab 09/15/20 04/04/21 Rx tablet (Compazine) carvedilol 12.5 mg tablet 12.5 mg PO BID #60 tab 11/06/20 04/04/21 Rx omeprazole 20 mg capsule,delayed 20 mg PO DAILY #30 cap 11/06/20 04/04/21 Rx release simvastatin 20 mg tablet 20 mg PO QPM #30 tab 11/07/20 04/04/21 Rx insulin glargine 100 unit/mL 16 unit SUBCUT QAM 01/05/21 04/04/21 History subcutaneous solution (Lantus U-100 Insulin) loperamide 2 mg capsule (Imodium 2 mg PO DIRECTED PRN 01/05/21 04/04/21 History A-D) HYDRAULIC KHADAR LIFT #1 ea 01/26/21 03/13/21 Rx FreeStyle Virgil 14 Day Sensor #6 ea NS 02/24/21 03/13/21 Rx (flash glucose sensor) FreeStyle Virgil 14 Day [place] #1 ea NS 03/08/21 03/13/21 Rx (flash glucose scanning reader) nystatin 100,000 unit/gram topical 1 applic TOPICAL BID PRN 04/04/21 04/04/21 History powder sevelamer carbonate 800 mg tablet 2,400 mg PO TIDM 04/04/21 04/04/21 History Past Med/Surg History Medical History Acute hyperkalemia Anemia in chronic kidney disease Anxiety Aspiration into lower respiratory tract Cellulitis of leg, right Dyslipidemia Dysphagia Excessive cerumen in both ear canals GERD (gastroesophageal reflux disease) Left lower lobe pneumonia LLL pneumonia On home oxygen therapy 2L n/c with cpap at Osteoarthritis Peripheral arterial disease Peripheral neuropathy bilt legs/feet Pleural effusion, left Secondary hyperparathyroidism of renal origin Sepsis Surgical History History of bilateral cataract extraction History of cardiac cath 01/2018 "about 2-3 weeks"; no stents placed @ [facility] by Dr. Coronel History of carpal tunnel release R wrist History of colonoscopy History of repair of anterior cruciate ligament of left knee History of repair of anterior cruciate ligament of right knee History of tonsillectomy History of tooth extraction wisdom teeth Family History Mother Family history of diabetes mellitus Grandmother Family history of diabetes mellitus maternal Other Colorectal cancer Inflammatory bowel disease Melanoma Social History Smoking Status: Current every day smoker Tobacco Type: Cigarettes Age Started Using Tobacco: 15; Cigarettes Per Day: 15 a day; Second Hand Exposure: Yes; Hx Alcohol Use: No Hx Substance Use: No Preferred Language: Bur[place]ian Communication Ability: Effective Vice President Medical Affairs Required: No Beliefs That Will Affect Care: None marital status: Single Current Living Situation: Family Current Living Situation Comment: Son- alisson current occupational status: retired How many Children do You have: 2 Feels Safe at Home: Yes Seatbelt Use: always Assistive Devices: CPAP and Oxygen - at Night Review of Systems Review of Systems: Unobtainable due to reduced consciousness Physical Exam Physical Exam: Constitutional: obese, somnolent, not ill appearing Eyes: EOMI, pupils equal and reactive bilaterally, no scleral icterus Cardiac: RRR, no murmurs, gallops or rubs. Normal S1, S2 Pulm: diffuse wheezing bilaterally on 3L NC Abd: soft, distended, no rebound or guarding Extremities: no edema Results & Data Results & Data ([facility]) Vital Signs (Past 12 Hours) Vital Signs Temp Pulse Pulse Resp BP BP Pulse Ox 04/04/21 21:36 64 20 152/69 H 98 04/04/21 20:25 95 04/04/21 19:56 64 27 H 93 04/04/21 19:29 37.2 C 66 20 158/73 H 89 L Laboratory Results Laboratory Results WBC 13.66 K/uL (4.8-10.8) H 04/04/21 19:57 RBC 3.38 M/uL (4.7-6.1) L 04/04/21 19:57 Hgb 10.8 g/dL (14.0-18.0) L 04/04/21 19:57 Hct 33.2 % (42-52) L 04/04/21 19:57 MCV 98.2 fL (80-100) 04/04/21 19:57 MCH 32.0 pg (25-34) 04/04/21 19:57 MCHC 32.5 g/dL (32-36) 04/04/21 19:57 RDW Std Deviation 52.0 fL (36.4-46.3) H 04/04/21 19:57 RDW Coeff of Jorge A 14.6 % (11.5-14.5) H 04/04/21 19:57 Plt Count 192 K/uL (130-400) 04/04/21 19:57 MPV 10.8 fL (7.4-10.4) H 04/04/21 19:57 Immature Gran % (Auto) 0.4 % 04/04/21 19:57 Neut % (Auto) 80.6 % 04/04/21 19:57 Lymph % (Auto) 11.5 % 04/04/21 19:57 Jessamine % (Auto) 5.9 % 04/04/21 19:57 Eos % (Auto) 1.4 % 04/04/21 19:57 Baso % (Auto) 0.2 % 04/04/21 19:57 Neut # (Auto) 11.00 K/uL (1.4-6.5) H 04/04/21 19:57 Lymph # (Auto) 1.57 K/uL (1.2-3.4) 04/04/21 19:57 Jessamine # (Auto) 0.81 K/uL (0.11-0.59) H 04/04/21 19:57 Eos # (Auto) 0.19 K/uL (0-0.5) 04/04/21 19:57 Baso # (Auto) 0.03 K/uL (0-0.2) 04/04/21 19:57 Immature Gran # (Auto) 0.06 K/uL (0.00-0.02) H 04/04/21 19:57 PT 12.6 Seconds (9.0-12.0) H 04/04/21 19:57 INR 1.3 (0.9-1.1) H 04/04/21 19:57 APTT 31.4 Seconds (21.0-31.0) H 04/04/21 19:57 PTT Ratio 1.2 04/04/21 19:57 Sodium 130 mmol/L (136-145) L 04/04/21 19:57 Potassium 7.1 mmol/L (3.5-5.1) H* 04/04/21 19:57 Chloride 95 mmol/L (98-107) L 04/04/21 19:57 Carbon Dioxide 26 mmol/L (21-32) 04/04/21 19:57 Anion Gap 9.0 (3-11) 04/04/21 19:57 BUN 93 mg/dl (7-18) H 04/04/21 19:57 Creatinine 11.70 mg/dl (0.6-1.4) H* 04/04/21 19:57 Est Cr Clr Drug Dosing 8.7 ml/min 04/04/21 19:57 Est GFR ( Amer) 4.7 ml/min 04/04/21 19:57 Est GFR (Non-Af Amer) 4.0 ml/min 04/04/21 19:57 BUN/Creatinine Ratio 8.0 (10-20) L 04/04/21 19:57 Glucose 100 mg/dl (70-99) H 04/04/21 19:57 Calcium 8.9 mg/dl (8.5-10.1) 04/04/21 19:57 Magnesium 2.5 mg/dl (1.8-2.4) H 04/04/21 19:57 Total Bilirubin 0.5 mg/dl (0.2-1) 04/04/21 19:57 AST 12 U/L (15-37) L 04/04/21 19:57 ALT 20 (12-78) 04/04/21 19:57 Alkaline Phosphatase 89 U/L (45-117) 04/04/21 19:57 Troponin I < 0.015 ng/ml (0-0.045) 04/04/21 19:57 Total Protein 7.5 gm/dl (6.4-8.2) 04/04/21 19:57 Albumin 3.2 gm/dl (3.4-5.0) L 04/04/21 19:57 Globulin 4.3 gm/dl (2.5-4.0) H 04/04/21 19:57 Albumin/Globulin Ratio 0.7 (0.9-2) L 04/04/21 19:57 TSH 0.724 uIu/ml (0.300-4.500) 04/04/21 19:57 SARS-CoV-2 (PCR) NEGATIVE (Negative) 04/04/21 20:38 Influenza Type A (PCR) Negative (Neg) 04/04/21 20:38 Influenza Type B (PCR) Negative (Neg) 04/04/21 20:38 RSV (RT-PCR) Negative (Neg) 04/04/21 20:38 Impressions Hand X-Ray 04/04/21 20:25 XR wrist LT min 3V routine, XR hand LT min 3V routine HISTORY: 65 years-old Male eval for fracture acute pain of the left hand and wrist status post fall COMPARISON: None TECHNIQUE: 4 views of the left wrist with 3 views of the left hand FINDINGS: WRIST: Moderate triscaphe and first carpometacarpal osteoarthritis. Diffuse soft tissue swelling of the distal forearm, wrist and hand. No acute fracture, dislocation, osseous erosion or opaque foreign body. Arterial calcifications. HAND: Diffuse moderate soft tissue swelling. No acute fracture, dislocation or osseous erosion. Arterial calcifications. Punctate radiodense focus projects over the thenar tissues on the PA view. IMPRESSION: Diffuse soft tissue swelling without acute fracture or dislocation. ACT 112: Negative or not required by law. The above report was generated using voice recognition software. It may contain grammatical, syntax or spelling errors. Electronically signed by: Diony Baxter M.D. 04/04/2021 9:36 PM Wrist X-Ray 04/04/21 20:25 XR wrist LT min 3V routine, XR hand LT min 3V routine HISTORY: 65 years-old Male eval for fracture acute pain of the left hand and wrist status post fall COMPARISON: None TECHNIQUE: 4 views of the left wrist with 3 views of the left hand FINDINGS: WRIST: Moderate triscaphe and first carpometacarpal osteoarthritis. Diffuse soft tissue swelling of the distal forearm, wrist and hand. No acute fracture, dislocation, osseous erosion or opaque foreign body. Arterial calcifications. HAND: Diffuse moderate soft tissue swelling. No acute fracture, dislocation or osseous erosion. Arterial calcifications. Punctate radiodense focus projects over the thenar tissues on the PA view. IMPRESSION: Diffuse soft tissue swelling without acute fracture or dislocation. ACT 112: Negative or not required by law. The above report was generated using voice recognition software. It may contain grammatical, syntax or spelling errors. Electronically signed by: Diony Baxter M.D. 04/04/2021 9:36 PM Chest X-Ray 04/04/21 20:26 XR chest 1V portable HISTORY: 65 years-old Male sob acute shortness of breath. COMPARISON: Chest radiograph 07/22/2020, chest CT 01/05/2021 TECHNIQUE: Portable semierect AP view of the chest FINDINGS: Electronic device is again noted projecting over the right chest. Pulmonary vascular congestion with interstitial coarsening. Trace right and small left pleural effusions with mild left lung base consolidation, similar to prior. Degenerative changes of the shoulders and spine. IMPRESSION: 1. Cardiomegaly with pulmonary edema. 2. Unchanged trace right and small left pleural effusions with chronic left basilar consolidation. ACT 112: Negative or not required by law. The above report was generated using voice recognition software. It may contain grammatical, syntax or spelling errors. Electronically signed by: Diony Baxetr M.D. 04/04/2021 9:[address] 04/04/21 20:26 CT head/brain wo con CLINICAL HISTORY: 65 years-old Male with syncope. Acute syncope with head trauma TECHNIQUE: Multiple axial CT images of the head were obtained without contrast. A dose lowering technique was utilized adhering to the principles of ALARA. CT DOSE: 1651.11 mGy.cm COMPARISON: Head CT 01/05/2021 FINDINGS: No acute intracranial hemorrhage, midline shift, intracranial mass, hydrocephalus, territorial ischemia or abnormal extra-axial collection. Age- related involutional changes. White matter hypodensities suggest chronic microvascular ischemic disease. Study is motion degraded. Calcifications of the falx cerebri. The calvarium is intact. Prior bilateral lens repair. Mild mucosal thickening of the maxillary sinuses with small focus of polypoid mucosal thickening within the left maxillary antrum. Trace mastoid effusions. IMPRESSION: No acute intracranial abnormality or calvarial fracture. ACT 112: Negative or not required by law. The above report was generated using voice recognition software. It may contain grammatical, syntax or spelling errors. Electronically signed by: Diony Baxter M.D. 04/04/2021 10:59 PM Supervising Physician Co-Signing Physician Notes Attending addendum: I have physically seen this patient, have supervised the medical residents activities, and agree with the H&P unless as otherwise noted. Assessment and Plan: ESRD on HD needing dialysis- Potassium 7.1, creatinine 11.7 upon admission Status post amp of D50/10 units regular insulin IV, calcium gluconate 1 g IV x1, anterior Micah 8.4 mg p.o. x1 from the ED BMP every 4 hours Follow closely on telemetry Nephrology aware and plans to dialyze patient in a.m. Continue sevelamer 3 times daily and Lasix 80 mg p.o. twice daily' Chronic respiratory failure with hypoxia/JANET on CPAP/tobacco use disorder- CPAP at bedtime DuoNebs every 2 hours as needed Nasal cannula oxygen, presently 3 L, target pulse ox 92% Remaining orders and notations as noted Resident Activity Tracking Resident Involvement: Resident Care Provided Care Provided: Adult [facility] (1) Depression Depression Type: unspecified Qualified Code(s): F32.9 - Major depressive disorder, single episode, unspecified (2) Hypothyroidism Hypothyroidism type: unspecified Qualified Code(s): E03.9 - Hypothyroidism, unspecified (3) Anemia in chronic kidney disease Chronic kidney disease stage: on chronic dialysis Qualified Code(s): N18.6 - End stage renal disease; D63.1 - Anemia in chronic kidney disease; Z99.2 - Dependence on renal dialysis (4) Hypertension Hypertension type: essential hypertension Qualified Code(s): I10 - Essential (primary) hypertension
[2021-04-05 00:31] LABS: Base Excess ABG -0.7 mEq/L (-9-1.8); HCO3 ABG 25 mmol/L (19-24); Oxygen Saturation ABG 95.4 % (90-95); PCO2 ABG 43 mmHg (35-46); PO2 ABG 79 mmHg (80-95); pH ABG 7.37 (7.35-7.45)
[2021-04-05 00:32] LABS: Allen Test POS (Pos)
[2021-04-05 00:55] LABS: BUN Creatinine Ratio 7.8 (10-20); Calcium 8.8 mg/dl (8.5-10.1); Creatinine Clr Calc Pharmacy 8.5 ml/min; Est GFR (African American) 4.5 ml/min; Est GFR (Non-African American) 3.9 ml/min
[2021-04-05 01:14] LABS: Potassium 5.9 mmol/L (3.5-5.1)
[2021-04-05] MEDS ORDERED: ONDANSETRON INJ 2 MG/ML 2 ML VIAL IV PRN (02:57)
[2021-04-05] MEDS ORDERED: NYSTATIN POWDER 15GM BTL EXT PRN (02:57)
[2021-04-05] MEDS ORDERED: POLYETHYLENE (MIRALAX) 17 GM PACK PO PRN (02:57)
[2021-04-05] MEDS ORDERED: NITROGLYCERIN SL 0.4 MG/TAB TAB SL PRN (02:57)
[2021-04-05] MEDS ORDERED: PROCHLORPERAZINE MALEATE 10 MG TAB PO PRN (02:57)
[2021-04-05] MEDS ORDERED: ACETAMINOPHEN 325 MG TAB PO PRN (02:57)
[2021-04-05] MEDS ORDERED: GLUCOSE 10 TABS/TUBE PO PRN (03:30)
[2021-04-05] MEDS ORDERED: CARBOHYDRATES FOR HYPOGLYCEMIA PO PRN (03:30)
[2021-04-05] MEDS ORDERED: DEXTROSE 50% 50 ML SYRINGE IV PRN (03:30)
[2021-04-05] MEDS ORDERED: GLUCAGON FOR INJ 1 MG VIAL IM PRN (03:30)
[2021-04-05] MEDS ORDERED: GLUCOSE 40% GEL 15 GM TUBE PO PRN (03:30)
[2021-04-05 05:23] LABS: BUN Creatinine Ratio 7.8 (10-20); Calcium 9.5 mg/dl (8.5-10.1); Creatinine Clr Calc Pharmacy 8.4 ml/min; Est GFR (African American) 4.5 ml/min; Est GFR (Non-African American) 3.9 ml/min; Potassium 6.7 mmol/L (3.5-5.1)
[2021-04-05] MEDS ORDERED: INSULIN HUMAN REGULAR PER UNIT 10 UNITS in SYRINGE 9.9 ML IV STA (05:27)
[2021-04-05] MEDS ORDERED: DEXTROSE 50% 50 ML SYRINGE IV ONE (05:27)
[2021-04-05] MEDS ORDERED: CALCIUM GLUCONATE 1,000 MG/60 ML BAG IV STA (05:27)
[2021-04-05 08:21] LABS: BUN Creatinine Ratio 7.9 (10-20); Calcium 9.2 mg/dl (8.5-10.1); Creatinine Clr Calc Pharmacy 8.1 ml/min; Est GFR (African American) 4.3 ml/min; Est GFR (Non-African American) 3.7 ml/min; Potassium 6.2 mmol/L (3.5-5.1)
[2021-04-05] MEDS ORDERED: SODIUM POLYSTYRENE SULFONATE 15G/60ML SUSP PO STA (08:41)
[2021-04-05] MEDS ORDERED: HEPARIN SOD (PORCINE) 1000 UNIT/ML IV ONE (08:56)
[2021-04-05] MEDS ORDERED: SODIUM CHLORIDE 0.9% 1000ML 1,000 ML IV PRN (08:56)
--- NOTE | 2021-04-05 09:38 | Nephrology Consultation ---
Date of Consultation April 05, 2021 Assessment & Plan (1) ESRD (end stage renal disease) on dialysis: * Hyperkalemic, volume overloaded. Will provide HD today according to outpatient orders and attempt 4 - 5 L UF. Orders placed in EMR and HD RN energy operations vice president notified * Repeat PRP, CXR in am (2) Acute and chronic respiratory failure with hypoxia: * On chronic O2 at 2L/min at home and nighttime CPAP * CXR film reviewed this am. Pulmonary congestion noted. Question whether cough related to CHF * COVID, RSV and influenza testing were negative 04/01/21 & 04/04/21 (3) Anemia in chronic kidney disease: * Mild anemia. Will provide MARILYN w/ HD today (4) Debilitated: * Recommend consultation w/ vp digital marketing social media and crm to determine whether patient requires home health assistance or SNF at time of discharge History of Present Illness Reason for Consultation: ESRD on HD Attending Physician: Parrish Leblanc, DO History of Present Illness Mr. Patiño is a 64 year old white male who is seen at the request of the [facility] Hospitalist Service to provide HD and assist w/ medical management during his hospitalization. Medical records in the EMR were reviewed today and are summarized as follows: Mr. Patiño has ESRD due to diabetic nephropathy. He dialyzes TTS at [facility] under the care of Dr. Francis (4hr 15min, 3k 2.5Ca 1Mg F-250NR EDW 121kg, access L upper arm AVF). Mr. Patiño's medical history is significant for AODM, JANET, ASCVD, current tobacco use, hypothyroidism, obesity. Mr. Patiño last dialyzed 03/31/21 without complication. He reports that he then developed an URTI and missed his treatment 04/02/21. He presented to the [facility] EMD late yesterday evening with complaints of dyspnea and weakness. COVID, RSV and influenza testing were negative 04/01/21 & 04/04/21. CXR was c/w CHF. Patient was 16 kg above his recorded outpatient EDW. Serum K was 7.0 without ECG changes. Mr. Patiño was admitted to the hospitalist service and received medical management of his hyperkalemia. Allergies Allergy/AdvReac Type Severity Reaction Status Date / Time lactose Allergy Intermediate Gastrointestinal Verified 04/04/21 22:34 Upset No Known Drug Allergies Allergy NKDA Verified 04/04/21 22:34 Home Medications Medication Instructions Recorded Confirmed Type amlodipine 10 mg tablet 10 mg PO HS #90 tab 06/26/20 04/04/21 Rx aspirin 81 mg chewable tablet 81 mg PO HS #90 tab 06/26/20 04/04/21 Rx buspirone 10 mg tablet 10 mg PO BID #180 tab 06/26/20 04/04/21 Rx escitalopram oxalate 10 mg tablet 10 mg PO DAILY #90 tab 06/26/20 04/04/21 Rx furosemide 80 mg tablet (Lasix) 80 mg PO BID #180 tab 06/26/20 04/04/21 Rx gabapentin 100 mg capsule 300 mg PO HS #270 cap 06/26/20 04/04/21 Rx levothyroxine 125 mcg tablet 125 mcg PO DAILYBB #90 tab 06/26/20 04/04/21 Rx losartan 50 mg tablet 50 mg PO DAILY #90 tab 06/26/20 04/04/21 Rx nitroglycerin 0.4 mg sublingual 0.4 mg SUBLINGUAL DIRECTED PRN 07/11/20 04/04/21 History tablet prochlorperazine maleate 10 mg 10 mg PO Q8H PRN #20 tab 09/15/20 04/04/21 Rx tablet (Compazine) carvedilol 12.5 mg tablet 12.5 mg PO BID #60 tab 11/06/20 04/04/21 Rx omeprazole 20 mg capsule,delayed 20 mg PO DAILY #30 cap 11/06/20 04/04/21 Rx release simvastatin 20 mg tablet 20 mg PO QPM #30 tab 11/07/20 04/04/21 Rx insulin glargine 100 unit/mL 16 unit SUBCUT QAM 01/05/21 04/04/21 History subcutaneous solution (Lantus U-100 Insulin) loperamide 2 mg capsule (Imodium 2 mg PO DIRECTED PRN 01/05/21 04/04/21 History A-D) HYDRAULIC KHADAR LIFT #1 ea 01/26/21 03/13/21 Rx FreeStyle Virgil 14 Day Sensor #6 ea NS 02/24/21 03/13/21 Rx (flash glucose sensor) FreeStyle Virgil 14 Day [place] #1 ea NS 03/08/21 03/13/21 Rx (flash glucose scanning reader) nystatin 100,000 unit/gram topical 1 applic TOPICAL BID PRN 04/04/21 04/04/21 History powder sevelamer carbonate 800 mg tablet 2,400 mg PO TIDM 04/04/21 04/04/21 History Patient History Medical History Acute hyperkalemia Anemia in chronic kidney disease Anxiety Aspiration into lower respiratory tract Cellulitis of leg, right Dyslipidemia Dysphagia Excessive cerumen in both ear canals GERD (gastroesophageal reflux disease) Left lower lobe pneumonia LLL pneumonia On home oxygen therapy 2L n/c with cpap at HS Osteoarthritis Peripheral arterial disease Peripheral neuropathy bilt legs/feet Pleural effusion, left Secondary hyperparathyroidism of renal origin Sepsis Surgical History History of bilateral cataract extraction History of cardiac cath 01/2018 "about 2-3 weeks"; no stents placed @ [facility] by Dr. Coronel History of carpal tunnel release R wrist History of colonoscopy History of repair of anterior cruciate ligament of left knee History of repair of anterior cruciate ligament of right knee History of tonsillectomy History of tooth extraction wisdom teeth Family History Mother Family history of diabetes mellitus Grandmother Family history of diabetes mellitus maternal Other Colorectal cancer Inflammatory bowel disease Melanoma Social History Smoking Status: Current every day smoker Tobacco Type: Cigarettes Age Started Using Tobacco: 15; Cigarettes Per Day: 15 a day; Second Hand Exposure: Yes; Hx Alcohol Use: No Hx Substance Use: No Preferred Language: Sudanese Communication Ability: Effective [place] Required: No Beliefs That Will Affect Care: None marital status: Single Current Living Situation: Family Current Living Situation Comment: [facility] current occupational status: retired How many Children do You have: 2 Feels Safe at Home: Yes Seatbelt Use: always Assistive Devices: CPAP Review of Systems Constitutional: + weakness; no fever Eyes: no problem reported Ear, Nose, Mouth, Throat: no problem reported Respiratory: + cough and + dyspnea Cardiovascular: + edema (swelling involving both arms); no chest pain and no palpitations Gastrointestinal: no abdominal pain and no vomiting Genitourinary: no dysuria, no urinary hesitancy or no hematuria Musculoskeletal: no back pain Neurologic: no confusion Physical Exam Constitutional: no acute distress (breathing easily on O2 at 3L/min NC) Eyes: PERRL, conjunctivae normal, anicteric sclerae ENMT: Mouth: no oral mucosal abnormality Neck: normal visual inspection and trachea midline Respiratory: normal respiratory effort Auscultation: + rales Cardiovascular: Rate/Rhythm: regular rate Heart Sounds: normal S1 and normal S2 Extremities: + edema (1+ swelling of the arms. LE without edema) and + AV fistula (+ bruit) Musculoskeletal: Extremities: no cyanosis (nicotine staining of R hand/fingers) and no clubbing Psychiatric: Orientation: alert and oriented x 3 Results & Data ([facility]) Vital Signs (Past 12 Hours) Vital Signs Temp Pulse Pulse Resp BP Pulse Ox 04/05/21 07:43 36.7 C 52 L 20 139/77 96 04/05/21 05:55 58 L 21 95 04/05/21 05:00 57 L 18 135/64 98 04/05/21 04:30 54 L 19 180/74 H 94 04/05/21 01:00 54 L 20 167/72 H 94 04/05/21 00:45 57 L 23 97 04/04/21 23:56 63 21 169/82 H 97 04/04/21 21:56 64 25 H 157/68 H 97 04/04/21 21:36 64 20 152/69 H 98 Laboratory Results Laboratory Tests 04/01/21 04/04/21 04/04/21 20:13 19:57 20:38 WBC 13.66 H Hgb 10.8 L Hct 33.2 L Plt Count 192 Sodium Potassium Chloride Carbon Dioxide BUN Creatinine Glucose SARS-CoV-2 (PCR) NEGATIVE NEGATIVE Influenza Type A (PCR) Negative Negative Influenza Type B (PCR) Negative Negative RSV (RT-PCR) Negative Negative 04/05/21 07:07 WBC Hgb Hct Plt Count Sodium 130 L Potassium 6.2 H* Chloride 95 L Carbon Dioxide 24 BUN 99 H Creatinine 12.60 H* D Glucose 130 H SARS-CoV-2 (PCR) Influenza Type A (PCR) Influenza Type B (PCR) RSV (RT-PCR) PG Care Time/CCT Total # of Minutes Spent Total Time Spent with Patient: Total time spent is greater than 50% in coordination of care (as documented) at patient's floor/unit and/or counseling patient: Coding Level of Care Code 59478 Inpt Consult Level 5 Diagnoses ESRD (end stage renal disease) on dialysis N18.6; Z99.2 Acute and chronic respiratory failure with hypoxia J96.21 Anemia in chronic kidney disease N18.6; D63.1; Z99.2 Chronic kidney disease stage: on chronic dialysis Debilitated R53.81 (1) Anemia in chronic kidney disease Chronic kidney disease stage: on chronic dialysis Qualified Code(s): N18.6 - End stage renal disease; D63.1 - Anemia in chronic kidney disease; Z99.2 - Dependence on renal dialysis
[2021-04-05] MEDS ORDERED: EPOETIN ALFA 4,000 UNIT/ML VIAL IV SCH (10:00)
[2021-04-05] MEDS: PATIROMER CALCIUM SORBITEX 8.4 GM PACK PO SCH (10:51)
[2021-04-05] MEDS: carvediloL 12.5 MG TAB PO SCH ×3 (10:51→21:18)
[2021-04-05] MEDS: SEVELAMER HCL 800 MG TABLET PO SCH ×3 (10:52→17:48)
[2021-04-05] MEDS: busPIRone 5 MG TAB PO SCH ×2 (10:52→21:18)
[2021-04-05] MEDS: ESCITALOPRAM OXALATE 10 MG TAB PO SCH (10:53)
[2021-04-05] MEDS: LOSARTAN POTASSIUM 50 MG TAB PO SCH (10:53)
[2021-04-05] MEDS: FUROSEMIDE 80 MG TAB PO SCH ×2 (10:53→18:09)
[2021-04-05] MEDS: HEPARIN SOD 5,000 UNIT/0.5 ML VIAL SQ SCH ×2 (10:54→21:18)
[2021-04-05] MEDS: PANTOprazole 40 MG TAB PO SCH (10:54)
[2021-04-05] MEDS: LEVOTHYROXINE SODIUM 125 MCG TABLET PO SCH (10:54)
[2021-04-05] MEDS: HEPARIN SOD (PORCINE) 1000 UNIT/ML IV SCH ×2 (13:25→14:48)
--- NOTE | 2021-04-05 13:49 | Hospitalist Progress Note ---
Date of Service April 05, 2021 Assessment & Plan (1) Missed dialysis: Plan: 65 y/o with ESRD (Dialysis T, Th, Sat-- [place]. Follows Dr. Francis), HTN, IDDM, JANET- CPAP, Chronic Respiratory Failure/O2 dependent. Missed 2 sessions of Dialysis this past week. Presented withclinical evidence of uremia (AMS, N/V) along with increased edema/cough and hyponatremia (likely related to volume overload) in addition to A/CKD (Cr. 12.6 today, hypokalemia- 7.1). * as a result of missed dialysis: patient was oligouric (perhaps even anuric), seemed uremic (with AMS, N/V), and had e-lyte abnormalities in addition does seem volume overloaded * Given Insulin/Dextrose, Calcium gluconate in the ED along with Sodium Bicarb, Veltassa and Kayexalate for hyperkalemia * Nephro on board with plan for 5L HD today * fluid balance being managed by Nephrology-- appreciate recommendations * will continue to follow labs closely * lengthy D/W patient regarding improtance of NOT missing dialysis and if he isn't feeling well, he needs to reach out to his Slurry Worker for recommendations (2) Acute hyperkalemia: Plan: * presenting Potassium of 7.1 with slightly peaked T-waves on EKG * received Insulin/Dextrose, Veltassa and Kayexalate * currently receiving HD * will follow labs closely (3) Hyponatremia: Plan: * likely related to volume overload/Acute on chronic renal failure * follow labs (4) Pulmonary edema: Plan: * appears to be volume overloaded * this is likely the cause of his cough (his dialysis schedule was changed given the holidays and then he missed 2 sessions which prompted his cough to get worse) * he does have leukocytosis (which could be reactive from vomiting); however, will obtain CT of the chest to look for underlying PNA in addition to procal. If suspicion for, will start abx's * Continue Lasix as prior to hospitalization (5) Leukocytosis: Plan: * May be reactive from vomiting but again, cannot rule out underlying infectious process. Patient reports history of aspiration in the past and may have underlying aspiration pneumonia * Obtain CT as outlined * Trend labs (6) ESRD (end stage renal disease) on dialysis: Plan: * Creatinine was 5.75 in January. Baseline seems to be 5-7 * Presenting creatinine 11.7 (12.6 today) with associated uremic, oliguria, e- lyte abnormalities * for HD today * Continue to trend labs (7) Diabetes mellitus: Plan: * Continue Lantus as prior to hospitalization * NovoLog added for sliding scale/correction dosing (8) Obstructive sleep apnea: Plan: * Continue CPAP as prior to hospitalization (9) Hypothyroidism: Plan: * Continue Synthroid as prior to hospitalization (10) Hypertension: Plan: * Continue Norvasc, Coreg, losartan as prior to hospitalization Plan: Plan of care will be discussed with Dr. Leblanc. Further orders as warranted. Admission and Anticipated Discharge Date Admission Date: April 04, 2021 Supervising Physician Co-Signing Physician Notes chart reviewed and case d/w Selam Palacios PAC - agree with above. Subjective Patient seen on daily rounds today. Presented to the ED with confusion, nausea and vomiting along with swelling of his arms (left greater than right). Admits to missing 1 session of hemodialysis this past week. Dialysis nurse called Jie who reports he missed 2.5 sessions. Patient reports that he "was not feeling great and had a subtle cough and did not want to spread any germs". This progressed into confusion, nausea and vomiting prompting his presentation into the ED. Creatinine was 11.7. White count was 13.6. Chest x-ray showed pulmonary edema. Potassium was elevated at 7.1. Was given Veltassa plus glucose/insulin. Nephrology consulted with plan for 5 L dialysis today. When seen today, currently getting hemodialysis. He reports that his nausea and vomiting seems to be improving. He is remained hemodynamically stable. Also his cough seems to be improving. He vocalizes no significant complaints or concernsdenies fevers, chills, chest pain, shortness of breath, abdominal pain, nausea or vomiting. Review of Systems Review of Systems: All systems reviewed and are unremarkable except as noted in HPI and below Denies fevers, chills, headache, nasal congestion, sore throat, cough, chest pain, shortness of breath, palpitations, orthopnea, PND, abdominal pain, nausea, vomiting, diarrhea, constipation, dysuria, hematuria, frequency, back pain, joint pain or swelling, easy bruising or bleeding, skin lesions or rashes. Physical Exam Physical Exam: General: Resting comfortably in his hospital bed/actively receiving dialysis. NAD. HEENT: Head is AT/NC buccal mucosa is moist and pink Neck: Neck is distended and difficult to examine but does appear to have mild JVD with + hepatojugular reflex Cardiac: Very distant heart sounds but appears RRR Lungs: Breathing is nonlabored. Distant/diminished breath sounds throughout. Bibasilar crackles Abdomen: Normoactive X4. Soft and nontender in all quadrants. Extremities: Trace pitting edema of the bilateral lower extremities Neuro: Mentation seems to be grossly intact. Answering questions appropriately. Cranial nerves II through XII are grossly intact no focal neuro deficits Skin: No obvious skin lesions or rashes Psych: Appropriate affect pleasant and cooperative Results & Data Results & Data ([facility]) Vital Signs (Past 12 Hours) Vital Signs Temp Pulse Pulse Pulse Resp BP BP 04/05/21 13:00 56 L 143/65 H 04/05/21 12:40 55 L 148/88 H 04/05/21 12:20 57 L 152/67 H 04/05/21 12:05 58 L 153/73 H 04/05/21 12:00 36.4 C L 58 L 04/05/21 11:23 36.8 C 59 L 18 170/74 H 04/05/21 07:43 36.7 C 52 L 20 139/77 04/05/21 05:55 58 L 21 04/05/21 05:00 57 L 18 135/64 04/05/21 04:30 54 L 19 180/74 H Pulse Ox 04/05/21 13:00 04/05/21 12:40 04/05/21 12:20 04/05/21 12:05 04/05/21 12:00 04/05/21 11:23 91 04/05/21 07:43 96 04/05/21 05:55 95 04/05/21 05:00 98 04/05/21 04:30 94 Laboratory Results 04/04/21 19:57 04/05/21 07:07 PG Care Time/CCT Total # of Minutes Spent Total Time Spent with Patient: Total time spent is greater than 50% in coordination of care (as documented) at patient's floor/unit and/or counseling patient: Coding Level of Care Code 98449 Subseq Hosp Care Lvl 2 Diagnoses Acute hyperkalemia E87.5 Missed dialysis Pulmonary edema J81.0 Chronicity: acute Leukocytosis D72.829 ESRD (end stage renal disease) on dialysis N18.6; Z99.2 Obstructive sleep apnea G47.33 Hypothyroidism E03.9 Hypothyroidism type: unspecified Hypertension I10 Hypertension type: essential hypertension Hyponatremia E87.1 Diabetes mellitus E11.9 (1) Hypothyroidism Hypothyroidism type: unspecified Qualified Code(s): E03.9 - Hypothyroidism, unspecified (2) Pulmonary edema Chronicity: acute Qualified Code(s): J81.0 - Acute pulmonary edema (3) Hypertension Hypertension type: essential hypertension Qualified Code(s): I10 - Essential (primary) hypertension
--- NOTE | 2021-04-05 16:58 | CT Scan Report ---
CT SCAN OF THE CHEST WITHOUT IV CONTRAST CLINICAL HISTORY: Dyspnea. COMPARISON STUDY: Chest x-ray dated 04/04/2021. Chest CT dated 01/05/2021. TECHNIQUE: CT scan of the thorax was performed from the thoracic inlet to the upper abdomen. Images are reviewed in the axial, sagittal, and coronal planes. IV contrast was not administered for this ex amination as per the referring clinician. A dose lowering technique was utilized adhering to the simón hester of NEAL. The examination is compromised by motion artifact. CT DOSE: 1011.84 mGy.cm FINDINGS: Thyroid: Imaged portions of the thyroid gland are normal in size and attenuation. Thoracic aorta: The thoracic aorta is normal in caliber and demonstrates standard 3-vessel arch anato my. Heart: The heart is enlarged and without pericardial effusion. Lungs and pleural spaces: Evaluation of the lung parenchyma is degraded by motion artifact. There is volume loss in the left lung. There are trace pleural effusions with dependent atelectasis. Round cur vilinear opacities in the lingula measuring 5.7 cm (axial image #171) and at the left lung base measu ring 7.2 cm (image #93) are unchanged from 01/05/2021 and likely represent round atelectasis. Mild jeffrey undglass opacities/mosaic attenuation is seen throughout both lungs, similar to previous. The trachea and central airways are clear. Mediastinum: There are mildly enlarged mediastinal lymph nodes. A pretracheal node measures 16 mm in short axis. These are similar to previous. Anna: Not well assessed without IV contrast. Axillae: There is no axillary lymphadenopathy. Upper abdomen: There is a small hiatal hernia. Partially visualized upper abdominal viscera is otherw ise grossly unremarkable. Skeletal structures: No lytic or blastic bony lesions are seen. Degenerative change is noted in the s houlders and thoracic spine. IMPRESSION: 1. Cardiomegaly and trace pleural effusions. 2. Large round curvilinear opacities at the left lung base are unchanged as compared to 01/05/2021 and likely resent round atelectasis. An additional 6 month follow-up chest CT is recommended for reasses sment. 3. Mild groundglass change/residual attenuation is seen throughout both lungs. Correlate clinically f or evidence of a mild pneumonitis or congestive change. This is also similar to previous. 4. Mildly enlarged mediastinal lymph nodes are nonspecific and unchanged. ACT 112: Negative or not required by law. Electronically signed by: Rodrigo Cason M.D. 04/05/2021 4:57 PM
[2021-04-05] MEDS: INSULIN GLARGINE SOLOSTAR 100 UNITS/ML 3 ML PEN SQ SCH (18:08)
[2021-04-05] MEDS ORDERED: SIMVASTATIN 20 MG TAB PO SCH (21:00)
[2021-04-05] MEDS ORDERED: amLODIPine BESYLATE 5 MG TAB PO SCH (21:00)
[2021-04-05] MEDS ORDERED: ASPIRIN 81 MG ECTAB PO SCH (21:00)
[2021-04-05] MEDS ORDERED: GABAPENTIN 300 MG CAP PO SCH (21:00)
[2021-04-06 05:50] LABS: Basophils # (auto) 0.04 K/uL (0-0.2); Basophils % (auto) 0.5 %; Eosinophils # (auto) 0.24 K/uL (0-0.5); Eosinophils % (auto) 2.8 %; Hematocrit (blood only) 31.2 % (42-52); Immature Granulocytes # (auto) 0.03 K/uL (0.00-0.02); Immature Granulocytes % (auto) 0.3 %; Lymphocytes % (auto) 28.8 %; Mean Corpuscular Hemoglobin 32.2 pg (25-34); Mean Corpuscular Hgb Conc 32.1 g/dL (32-36); Mean Corpuscular Volume 100.3 fL (80-100); Mean Platelet Volume 10.1 fL (7.4-10.4); Monocytes # (auto) 0.39 K/uL (0.11-0.59); Monocytes % (auto) 4.5 %; Neutrophils # (auto) 5.49 K/uL (1.4-6.5); Neutrophils % (auto) 63.1 %; Platelet Count 179 K/uL (130-400); RDW Coefficient of Variation 14.5 % (11.5-14.5); Red Blood Count 3.11 M/uL (4.7-6.1); White Blood Count 8.69 K/uL (4.8-10.8)
[2021-04-06 06:33] LABS: BUN Creatinine Ratio 6.2 (10-20); Calcium 9.3 mg/dl (8.5-10.1); Creatinine Clr Calc Pharmacy 12.4 ml/min; Est GFR (African American) 7.1 ml/min; Est GFR (Non-African American) 6.2 ml/min; Magnesium 2.5 mg/dl (1.8-2.4); Potassium 4.7 mmol/L (3.5-5.1)
[2021-04-06] MEDS: LEVOTHYROXINE SODIUM 125 MCG TABLET PO SCH (07:26)
--- NOTE | 2021-04-06 07:35 | Electrocardiogram Report ---
Test Reason : Blood Pressure : / mmHG Vent. Rate : 064 BPM Atrial Rate : 064 BPM P-R Int : 292 ms QRS Dur : 102 ms QT Int : 424 ms P-R-T Axes : 054 195 038 degrees QTc Int : 437 ms Sinus rhythm with 1st degree A-V block Right superior axis deviation Pulmonary disease pattern Septal infarct (cited on or before 05-JAN-2021) Abnormal ECG When compared with ECG of 01-APR-2021 20:02, Questionable change in QRS axis Questionable change in initial forces of Anterior leads Confirmed by Veto Pisano ([id number]) on 04/06/2021 7:34:41 AM Referred By: REFERRED SELF Confirmed By:Veto Pisano
[2021-04-06] MEDS: HEPARIN SOD 5,000 UNIT/0.5 ML VIAL SQ SCH (08:36)
[2021-04-06] MEDS: PANTOprazole 40 MG TAB PO SCH (08:37)
[2021-04-06] MEDS: busPIRone 5 MG TAB PO SCH (08:37)
[2021-04-06] MEDS: INSULIN GLARGINE SOLOSTAR 100 UNITS/ML 3 ML PEN SQ SCH (08:38)
[2021-04-06] MEDS: LOSARTAN POTASSIUM 50 MG TAB PO SCH (08:38)
[2021-04-06] MEDS: FUROSEMIDE 80 MG TAB PO SCH (08:39)
[2021-04-06] MEDS: SEVELAMER HCL 800 MG TABLET PO SCH ×2 (08:40→12:47)
[2021-04-06] MEDS: ESCITALOPRAM OXALATE 10 MG TAB PO SCH (08:40)
[2021-04-06] MEDS: carvediloL 12.5 MG TAB PO SCH (08:41)
--- NOTE | 2021-04-06 09:49 | Nephrology Progress Note ---
Date of Service April 06, 2021 Assessment & Plan (1) ESRD (end stage renal disease) on dialysis: Plan: * Dialyzed yesterday for 5L UF. No complications. Hyperkalemia corrected. Patient is now breathing comfortably on RA. * OK to discharge from Nephrology perspective. I have contacted [facility] HD unit and notified them that patient will resume his TTS outpatient schedule (2) Acute and chronic respiratory failure with hypoxia: Plan: * On chronic O2 at 2L/min at home and nighttime CPAP * COVID, RSV and influenza testing were negative 04/01/21 & 04/04/21 (3) Anemia in chronic kidney disease: Plan: * Mild anemia. Will provide MARILYN w/ HD today (4) Debilitated: Plan: * Recommend consultation w/ social worker school to determine whether patient requires home health assistance or SNF at time of discharge Admission and Anticipated Discharge Date Admission Date: April 04, 2021 Subjective Mr. Patiño was evaluated in his hospital room this morning. He was dialyzed yesterday for 5 L UF. There were no complications. He is currently breathing comfortably w/ SaO2 93% on RA. His cough has markedly improved. Review of Systems Constitutional: + weakness; no fever Eyes: no problem reported Ear, Nose, Mouth, Throat: no problem reported Respiratory: no cough and no dyspnea Cardiovascular: no chest pain, no palpitations and no edema (swelling involving both arms) Gastrointestinal: no abdominal pain and no vomiting Genitourinary: no dysuria, no urinary hesitancy or no hematuria Musculoskeletal: no back pain Neurologic: no confusion Physical Exam Constitutional: no acute distress (breathing easily on RA) Eyes: PERRL, conjunctivae normal, anicteric sclerae ENMT: Mouth: no oral mucosal abnormality Neck: normal visual inspection and trachea midline Respiratory: normal respiratory effort Auscultation: + rales Cardiovascular: Rate/Rhythm: regular rate Heart Sounds: normal S1 and normal S2 Extremities: + AV fistula (+ bruit); no edema Musculoskeletal: Extremities: no cyanosis (nicotine staining of R hand /fingers) and no clubbing Psychiatric: Orientation: alert and oriented x 3 Results & Data ([facility]) Vital Signs (Past 12 Hours) Vital Signs Pulse Pulse Resp BP Pulse Ox 04/06/21 07:53 58 L 18 136/74 93 04/06/21 04:03 54 L 18 169/90 H 96 04/06/21 03:26 54 L 19 94 04/05/21 23:45 68 18 169/90 H 94 04/05/21 22:43 63 20 92 Laboratory Results Laboratory Tests 04/06/21 04/06/21 05:29 05:29 WBC 8.69 Hgb 10.0 L Hct 31.2 L Plt Count 179 Sodium 133 L Potassium 4.7 D Chloride 99 Carbon Dioxide 26 BUN 51 H Creatinine 8.22 H* D Glucose 105 H PG Care Time/CCT Total # of Minutes Spent Total Time Spent with Patient: Total time spent is greater than 50% in coordination of care (as documented) at patient's floor/unit and/or counseling patient: Coding Level of Care Code 37371 Subseq Hosp Care Lvl 3 Diagnoses ESRD (end stage renal disease) on dialysis N18.6; Z99.2 Acute and chronic respiratory failure with hypoxia J96.21 Anemia in chronic kidney disease N18.6; D63.1; Z99.2 Chronic kidney disease stage: on chronic dialysis Debilitated R53.81 (1) Anemia in chronic kidney disease Chronic kidney disease stage: on chronic dialysis Qualified Code(s): N18.6 - End stage renal disease; D63.1 - Anemia in chronic kidney disease; Z99.2 - Dependence on renal dialysis
--- NOTE | 2021-04-06 11:08 | Discharge Summary ---
Date of Service April 06, 2021 Admission HPI Per Admitting Provider 65 yo chronically ill male with hx ESRD on HD, Dm2, HTN, PAD, GERD, CKD with anemia, Depression, hypothyroidism who presents to ER for generalized weakness. Per ER provider, he lives at home alone but is cared for by his son and a nurse. he missed his dialysis on Tuesday and is supposed to have dialysis tomorrow (tuesday). He follows with [facility] nephrology. Attempted to interview patient however he was very somnolent, drifting in and out of sleep. Did say he felt better at the time of interview than he had prior. Principal Diagnosis 1. Missed Dialysis 2. Hypokalemia-- 2/2 #1 and resolved 3. Acute Uremia-- 2/2 #1 and resolved 4. Fluid Overload-- 2/2 #1 and resolved 5. Hyponatremia-- 2/2 #1 and 4 and resolved 6. Leukocytosis-- likely reactive from vomiting 7. Acute on Chronic Renal disease-- back to baseline Discharge Exam General: Resting comfortably in his hospital bed/actively receiving dialysis. NAD. HEENT: Head is AT/NC buccal mucosa is moist and pink Neck: Neck is distended and difficult to examine but shaffer snot appear to have JVD or HJR Cardiac: Very distant heart sounds but appears RRR Lungs: Breathing is nonlabored. Improved air exchange throughout without W/R/R today Abdomen: Normoactive X4. Soft and nontender in all quadrants. Extremities: Trace pitting edema of the bilateral lower extremities Neuro: Mentation seems to be grossly intact. Answering questions appropriately. Cranial nerves II through XII are grossly intact no focal neuro deficits Skin: No obvious skin lesions or rashes Psych: Appropriate affect pleasant and cooperative Discharge Data Allergies Allergy/AdvReac Type Severity Reaction Status Date / Time lactose Allergy Intermediate Gastrointestinal Verified 04/04/21 22:34 Upset No Known Drug Allergies Allergy NKDA Verified 04/04/21 22:34 Consultations 04/04/21 21:39 ED Decision to Admit Stat 04/05/21 02:57 Consult Nephrology Routine Assessment & Plan (1) ESRD (end stage renal disease) on dialysis: * Hyperkalemic, volume overloaded. Will provide HD today according to outpatient orders and attempt 4 - 5 L UF. Orders placed in EMR and HD RN documentation specialist notified * Repeat PRP, CXR in am (2) Acute and chronic respiratory failure with hypoxia: * On chronic O2 at 2L/min at home and nighttime CPAP * CXR film reviewed this am. Pulmonary congestion noted. Question whether cough related to CHF * COVID, RSV and influenza testing were negative 04/01/21 & 04/04/21 (3) Anemia in chronic kidney disease: * Mild anemia. Will provide MARILYN w/ HD today (4) Debilitated: * Recommend consultation w/ social media coordinator to determine whether patient requires home health assistance or SNF at time of discharge 04/06/21: Assessment & Plan (1) ESRD (end stage renal disease) on dialysis: Plan: * Dialyzed yesterday for 5L UF. No complications. Hyperkalemia corrected. Patient is now breathing comfortably on RA. * OK to discharge from Nephrology perspective. I have contacted [facility] HD unit and notified them that patient will resume his TTS outpatient schedule (2) Acute and chronic respiratory failure with hypoxia: Plan: * On chronic O2 at 2L/min at home and nighttime CPAP * COVID, RSV and influenza testing were negative 04/01/21 & 04/04/21 (3) Anemia in chronic kidney disease: Plan: * Mild anemia. Will provide MARILYN w/ HD today (4) Debilitated: Plan: * Recommend consultation w/ social media coordinator to determine whether patient requires home health assistance or SNF at time of discharge Ordered Studies 04/04/21 20:26 CT head/brain wo con Stat IMPRESSION: No acute intracranial abnormality or calvarial fracture. 04/05/21 13:17 CT chest diagnostic wo con Routine IMPRESSION: 1. Cardiomegaly and trace pleural effusions. 2. Large round curvilinear opacities at the left lung base are unchanged as compared to 01/05/2021 and likely resent round atelectasis. An additional 6 month follow-up chest CT is recommended for reassessment. 3. Mild groundglass change/residual attenuation is seen throughout both lungs. Correlate clinically for evidence of a mild pneumonitis or congestive change. This is also similar to previous. 4. Mildly enlarged mediastinal lymph nodes are nonspecific and unchanged. Hospital Course (1) Missed dialysis: 65 y/o with ESRD (Dialysis T, Th, Sat-- [facility]. Follows Dr. Francis), HTN, IDDM, JANET- CPAP, Chronic Respiratory Failure/O2 dependent. Missed 2 sessions of Dialysis this past week. Presented withclinical evidence of uremia (AMS, N/V) along with increased edema/cough and hyponatremia (likely related to volume overload) in addition to A/CKD (Cr. 12.6, hyperkalemia- 7.1). * as a result of missed dialysis: patient was oliguric (perhaps even anuric), seemed uremic (with AMS, N/V), and had e-lyte abnormalities in addition does seem volume overloaded * Given Insulin/Dextrose, Calcium gluconate in the ED along with Sodium Bicarb, Veltassa and Kayexalate for hyperkalemia * Nephro on board: had HD (5L) on 04/05 * patient has since showed significant clinical improvement (he is back to his baseline. No longer confused. No adventitious breath sounds and not requring supplemental O2 today, denies N/V. Labs showing baseline creatinine without e- lyte abnormalities * CT of the chest done given leukocytosis and crackles (showing no PNA and pulmonary edema). (2) Acute hyperkalemia: * presenting Potassium of 7.1 with slightly peaked T-waves on EKG * received Insulin/Dextrose, Veltassa and Kayexalate * 5L HD 04/05. * potassium now normal (4.7) (3) Hyponatremia: * likely related to volume overload/Acute on chronic renal failure (presenting Na+ 129) * improved following HD (133) (4) Pulmonary edema: * appears to be volume overloaded * this is likely the cause of his cough (his dialysis schedule was changed given the holidays and then he missed 2 sessions which prompted his cough to get w orse) * he does have leukocytosis (which could be reactive from vomiting); however, will obtain CT of the chest to look for underlying PNA in addition to procal. If suspicion for, will start abx's * Continue Lasix as prior to hospitalization (5) Leukocytosis: * WBC count 13 K upon arrival * Was uncertain if this was due to underlying infectious process or reactive due to nausea and vomiting * Given adventitious breath sounds, CT scan of the chest was performed showing no evidence of opacity or pneumonia but findings consistent with volume overload * WBC count normalized to 8.69 without antibiotic intervention (6) ESRD (end stage renal disease) on dialysis: * Creatinine was 5.75 in January. Baseline seems to be 5-8 * Presenting creatinine 12.6 with associated uremic, oliguria, e-lyte abnormalities * Is s/p HD for 5L * Continue down to 8.22 which is close to baseline. * He no longer has adventitious breath sounds or is requiring supplemental oxygen, his electrolyte abnormalities have improved and he is not having any clinical evidence of uremia. In addition, he is making scants amount of urine. (7) Diabetes mellitus: * Continue Lantus * NovoLog utilized for sliding scale coverage and correction dosing while in house (8) Obstructive sleep apnea: * Continue CPAP as prior to hospitalization (9) Hypothyroidism: * Continue Synthroid as prior to hospitalization (10) Hypertension: * Continue Norvasc, Coreg, losartan as prior to hospitalization Plan of care discussed with nephrology who agrees with discharge to home and follow-up tomorrow in the clinic for dialysis. Arrangements made by nephrology. Lengthy discussion with patient regarding the importance of compliance Total Time Total Time Spent Total Time Spent (In Minutes): 25 Discharge Plan Discharge Items Patient Disposition: Home - Self-Care Reason For Visit: HYPERKALEMIA, WEAKNESS Discharge Diagnosis: 1. Uremia ("filling up with toxins" on account of missing dialysis)-- caused confused, nausea and vomiting 2. Hyperkalemia and hyponatremia (high potassium and low sodium-- due to missing dialysis 3. Fluid overload- due to missing dialysis 4. leukocytosis (elevated white blood cell count)- likely reactive from vomiting Condition on Discharge: Good Activity: Resume your previous activity Non-emergency contact: Primary Care Provider and Crm Solution Architect Call non-emergency contact if: you have any medication questions Follow-up/Referrals: Audi Francis DO [Physician] - Veto Gan DO [Primary Care Provider] - Diet: Carb Consistent or DM2 and Dialysis Renal Addtl Attending Provider Instructions: - you came to the hospital with issues DIRECTLY RELATED to missing dialysis --you were uremic (filling up with toxin causing confusion, nausea and vomiting) --you had oliguria (not making much urine) --you had fluid overload (too much fluid in your lungs and extremities) --your potassium was dangerously high (which can cause fatal cardiac arrhythmias) --your sodium was low (from the fluid accumulation diluting out your sodium) which can further cause nausea and vomiting - there was a question of underlying pneumonia for which a CT of the chest was performed (no Pneumonia seen-- all fluid overload) - your symptoms and labs returned to normal with resumption of dialysis - Nephrology saw you while in house and made arrangements for you to receive dialysis in the clinic tomorrow. IT IS IMPERATIVE THAT YOU NOT MISS YOU DIALYSIS SESSIONS! - There was no change in your home medications, resume these as prior to hospitalization - Call Neurology to arrange the outpatient MRI that you talked above having done - return to the ED for new or worsening symptoms Pending Studies at Discharge: No Stand-Alone Forms: My [facility] Medications and DC Order Prescriptions: Continued amlodipine 10 mg tablet 10 mg PO HS Qty: 90 RF: 3 aspirin 81 mg tablet,chewable 81 mg PO HS Qty: 90 RF: 3 buspirone 10 mg tablet 10 mg PO BID Qty: 180 RF: 3 escitalopram oxalate 10 mg tablet 10 mg PO DAILY Qty: 90 RF: 3 furosemide [Lasix] 80 mg tablet 80 mg PO BID Qty: 180 RF: 3 gabapentin 100 mg capsule 300 mg PO HS Qty: 270 RF: 3 levothyroxine 125 mcg tablet 125 mcg PO DAILYBB Qty: 90 RF: 3 losartan 50 mg tablet 50 mg PO DAILY Qty: 90 RF: 3 prochlorperazine maleate [Compazine] 10 mg tablet 10 mg PO Q8H PRN (Reason: nausea and vomiting) Qty: 20 RF: 0 omeprazole 20 mg capsule,delayed release(DR/EC) 20 mg PO DAILY Qty: 30 RF: 11 carvedilol 12.5 mg tablet 12.5 mg PO BID Qty: 60 RF: 11 simvastatin 20 mg tablet 20 mg PO QPM Qty: 30 RF: 5 (DME) HYDRAULIC KHADAR LIFT See Rx Instructions .Route .MEDSUPPLY Qty: 1 RF: 0 (DME) FreeStyle Virgil 14 Day Sensor Kit See Dose Instructions .ROUTE .MEDSUPPLY Qty: 6 RF: 3 (DME) FreeStyle Virgil 14 Day [place] Misc See Rx Instructions .ROUTE .MEDSUPPLY Qty: 1 RF: 5 nitroglycerin 0.4 mg tablet, sublingual 0.4 mg sublingual DIRECTED PRN (Reason: Chest Pain) RF: 0 Lantus U-100 Insulin 100 unit/mL Solution 16 unit SUBCUT QAM RF: 0 loperamide [Imodium A-D] 2 mg capsule 2 mg PO DIRECTED PRN (Reason: loose stool) RF: 0 nystatin 100,000 unit/gram powder 1 applic topical BID PRN (Reason: irritation) RF: 0 sevelamer carbonate 800 mg tablet 2,400 mg PO TIDM RF: 0 Discharge Orders: Discharge Order (Routine); Ordered 04/06/21 Ordered By: Selam Palacios Admission Data Admit Date/Time: 04/04/21 22:44 Attending Provider: Girma Ugalde Admit Provider: Melissa Elaine Primary Care Provider: Veto Gan Other Providers: Aron Romano ; Girma Ugalde Other Interventions: Discharge Summary Assessment (RN) Last Done: 04/06/21 13:48 Supervising Physician Co-Signing Physician Notes I supervised Selam Palacios PA-C on the care of this patient. I interviewed and examined the patient independently of her. The plan is as written in her note except for any following changes/exceptions: None Doing well today. On room air. Plan to go to o/p dialysis tomorrow and remove further fluid. Strongly encouraged him to attend that session. Coding Level of Care Code 39849 OBS Care - Discharge Diagnoses Missed dialysis Acute hyperkalemia E87.5 Hyponatremia E87.1 Pulmonary edema J81.0 Chronicity: acute Leukocytosis D72.829 ESRD (end stage renal disease) on dialysis N18.6; Z99.2 Diabetes mellitus E11.9 Obstructive sleep apnea G47.33 Hypothyroidism E03.9 Hypothyroidism type: unspecified Hypertension I10 Hypertension type: essential hypertension
[2021-04-06] MEDS: PATIROMER CALCIUM SORBITEX 8.4 GM PACK PO SCH (12:29)
--- NOTE | 2021-04-06 14:15 | Electrocardiogram Report ---
Test Reason : Blood Pressure : / mmHG Vent. Rate : 057 BPM Atrial Rate : 057 BPM P-R Int : 254 ms QRS Dur : 096 ms QT Int : 478 ms P-R-T Axes : 077 020 063 degrees QTc Int : 465 ms Sinus bradycardia with 1st degree A-V block Low voltage QRS Poor R wave progression, consider anterior FL vs. lead placement vs. LVH Abnormal ECG When compared with ECG of 04-APR-2021 20:15, Questionable change in QRS axis Questionable change in initial forces of Anterior leads Confirmed by Alberto Hernadez ([id number]) on 04/06/2021 2:15:26 PM Referred By: REFERRED SELF Confirmed By:Alberto Hernadez
--- NOTE | 2021-04-08 01:38 | Billing Data ---
Date of Service April 08, 2021 Coding Level of Care Code 49831 Initial Inpt Care Lvl 3
== END 2021-04-06 15:30 | disposition home or self-care (01) ==
LOC: ED 19:38 → EDINP 19:38 → SUATTDRO 22:44 → EDINP 04-05 03:03

== ENCOUNTER 2021-05-12 14:20 | Inpatient (IN) ==
--- NOTE | 2021-05-12 15:39 | Emergency Department Note ---
Impression & Plan Gangrenous toe, Diabetes mellitus, End-stage renal disease (ESRD), Wound of left foot ED Provider Note Provider: Denys Olsen MD DATE OF SERVICE: 05/12/2021 CHIEF COMPLAINT: Toe concerns HISTORY OF PRESENT ILLNESS: Patient is a 65-year-old gentleman history of diabetes, end-stage renal disease, peripheral vascular disease presenting here today referred Dialysis due to wounds on his left foot. Was seen around Tuesday and sent AGAINST MEDICAL ADVICE to go home. Had extensive work-up at that time. Placed on Cipro and Bactrim. Denies fever or chills. Is somewhat evasive in answering a little bit cagey and answering questions at times. Patient denies known trauma. States he has poor sensation in his feet. Completed dialysis today. States previously had seen podiatry several weeks ago. Patient denies fever or chills. Patient is again not a good historian regarding how long these wounds on the left foor have been present. REVIEW OF SYSTEMS: A total of 10 review of systems was obtained and negative except as stated above in the HPI. PAST MEDICAL HISTORY: As noted above MEDICATIONS: Reviewed home medications SOCIAL HISTORY: Smoker PHYSICAL EXAM: GENERAL: alert in no acute distress on stretcher Head: normocephalic and atraumatic EYES: No injection, discharge or icterus. NECK: Trachea midline. LUNGS: Airway patent. No retractions. Breath sounds clear HEART: Regular rate and rhythm. No chest wall tenderness ABDOMEN: Soft and non-tender, without guarding or rebound. SKIN: Acyanotic, warm, dry, left foot as below EXTREMITIES: Patient with diminished sensation of the bilateral feet with poor capillary perfusion in both feet. Patient has an approximately 2 cm area of reddish wound over the anterior lateral left ankle. No crepitus of the ankle or foot. The left second and third toes the distal phalanges on the left foot with evidence of blackish tissue. Some blistering surrounding this area including the left great toe is present with some serous contains drainage. These are mainly intact however. NEUROLOGICAL: No focal deficits. No aphasia. No facial droop or slurred speech. Patient's laboratory studies and imaging reviewed. Differential includes Foreign body, fracture, dislocation, joint compromise, infection, soft tissue injury, tendon injury, vascular compromise, compartment syndrome, as well as other pathologies. IMPRESSION/MEDICAL DECISION MAKING: Seen with the resident physician. Patient here on Tuesday and had extensive work-up including arterial duplex of the lower legs without evidence of stenosis at that time. Evidence of likely some dry gangrene with some blistering of the left second and third toes. There is a small area of wound on the lateral left anterior ankle region as well. No crepitus appreciated. Patient has poor sensation to underlying diabetic neuropathy. Has been on Cipro Bactrim at home. White count is somewhat lower today. Inflammatory markers are somewhat elevated. Do not believe we need repeat x-rays at this time as x-rays are completed several days ago as well as the arterial duplex. Question worsening infection locally. He does not appear septic. Do not believe this is necr otizing fasciitis. He may ultimately need for partial amputations of these toes given this extensive area of blackened tissue likely gangrene. Discussed with the patient at bedside commendation for admission and further care. Discussed that this could worsen if he loses fluid or possibly become septic and if this is left without good treatment. Patient was begrudgingly agreeable for further care here at the hospital and the hospitalist was contacted. Blood cultures were obtained. Discussed with pharmacy and covered broadly with daptomycin and Zosyn. Patient did receive dialysis earlier today. Given that he has a highly odd affect and to exclude any acute intracranial abnormality a CT of the head was completed without acute findings noted. DIAGNOSIS: Left toe infection/wounds, ESRD, diabetes, PVD DISPOSITION: Hospitalist will evaluate Patient was agreeable with this plan. Past Med/Surg History Medical History Acute hyperkalemia Anemia in chronic kidney disease Anxiety Aspiration into lower respiratory tract Cellulitis of leg, right Dyslipidemia Dysphagia Excessive cerumen in both ear canals GERD (gastroesophageal reflux disease) Left lower lobe pneumonia LLL pneumonia Missed dialysis On home oxygen therapy 2L n/c with cpap at Osteoarthritis Peripheral arterial disease Peripheral neuropathy bilt legs/feet Pleural effusion, left Secondary hyperparathyroidism of renal origin Sepsis Surgical History History of bilateral cataract extraction History of cardiac cath 01/2018 "about 2-3 weeks"; no stents placed @ [facility] by Dr. Coronel History of carpal tunnel release R wrist History of colonoscopy History of repair of anterior cruciate ligament of left knee History of repair of anterior cruciate ligament of right knee History of tonsillectomy History of tooth extraction wisdom teeth Family History Mother Family history of diabetes mellitus Grandmother Family history of diabetes mellitus maternal Other Colorectal cancer Inflammatory bowel disease Melanoma Social History Smoking Status: Current every day smoker Tobacco Type: Cigarettes Age Started Using Tobacco: 15; Cigarettes Per Day: 15 a day; Second Hand Exposure: Yes; Hx Alcohol Use: No Hx Substance Use: No Preferred Language: Nauruan Communication Ability: Effective Vegetable Washer Required: No Beliefs That Will Affect Care: None marital status: Single Current Living Situation: Family Current Living Situation Comment: [facility] current occupational status: retired How many Children do You have: 2 Feels Safe at Home: Yes Seatbelt Use: always Assistive Devices: CPAP and Oxygen - at Night Allergies Allergies Allergy/AdvReac Type Severity Reaction Status Date / Time lactose Allergy Intermediate Gastrointestinal Verified 05/12/21 15:53 Upset No Known Drug Allergies Allergy NKDA Verified 05/12/21 15:53 Home Meds Home Medications Medication Instructions Recorded Confirmed nitroglycerin 0.4 mg sublingual 0.4 mg SUBLINGUAL DIRECTED PRN 07/11/20 05/12/21 tablet insulin glargine 100 unit/mL 16 unit SUBCUT QAM 01/05/21 05/12/21 subcutaneous solution (Lantus U-100 Insulin) loperamide 2 mg capsule (Imodium 2 mg PO DIRECTED PRN 01/05/21 05/12/21 A-D) nystatin 100,000 unit/gram topical 1 applic TOPICAL BID PRN 04/04/21 05/12/21 powder sevelamer carbonate 800 mg tablet 2,400 mg PO TIDM 04/04/21 05/12/21 buspirone 10 mg tablet 10 mg PO BID 05/09/21 05/12/21 escitalopram oxalate 10 mg tablet 10 mg PO QAM 05/09/21 05/12/21 losartan 50 mg tablet 50 mg PO HS 05/09/21 05/12/21 simvastatin 20 mg tablet 20 mg PO HS 05/12/21 05/12/21 Previous Rx's Medication Instructions Recorded amlodipine 10 mg tablet 10 mg PO HS #90 tab 06/26/20 aspirin 81 mg chewable tablet 81 mg PO HS #90 tab 06/26/20 furosemide 80 mg tablet (Lasix) 80 mg PO BID #180 tab 06/26/20 gabapentin 100 mg capsule 300 mg PO HS #270 cap 06/26/20 levothyroxine 125 mcg tablet 125 mcg PO DAILYBB #90 tab 06/26/20 carvedilol 12.5 mg tablet 12.5 mg PO BID #60 tab 11/06/20 omeprazole 20 mg capsule,delayed 20 mg PO DAILY #30 cap 11/06/20 release HYDRAULIC KHADAR LIFT #1 ea 01/26/21 FreeStyle Virgil 14 Day Sensor #6 ea NS 02/24/21 (flash glucose sensor) FreeStyle Virgil 14 Day [place] #1 ea NS 03/08/21 (flash glucose scanning reader) ciprofloxacin HCl 500 mg tablet 500 mg PO DAILY 13 Days #13 tab 05/09/21 sulfamethoxazole 800 1 tab PO DAILY 13 Days #13 tab 05/09/21 mg-trimethoprim 160 mg tablet (Bactrim DS) Results & Data (ED) Vital Signs Vital Signs - 24 hr 05/12/21 14:46 05/12/21 15:32 05/12/21 15:38 Temperature 37 C 37.3 C Temperature Source Oral Oral Pulse Rate 57 L Pulse Rate from SpO2 Sensor 56 L Respiratory Rate 20 12 19 Respiratory Effort / Characteristics Non-Labored Non-Labored Respiratory Depth Normal Normal Respiratory Pattern Regular Regular Blood Pressure 155/68 H 180/60 H Blood Pressure [Right Arm] 180/60 H Blood Pressure Mean 97 100 Blood Pressure Mean [Right Arm] 100 Blood Pressure Position Lying Blood Pressure Position [Right Arm] Lying Pulse Oximetry 94 95 98 Oxygen Delivery Method Room Air Room Air Room Air Sepsis Recent Fever Within 48 Hours No Sepsis New/Unexplained Change in Mental Status N/A Sepsis Action Taken by Nursing No Action Required 05/12/21 16:00 05/12/21 16:30 05/12/21 17:30 Temperature Temperature Source Pulse Rate 59 L 58 L 60 Pulse Rate from SpO2 Sensor Respiratory Rate 16 18 13 Respiratory Effort / Characteristics Respiratory Depth Respiratory Pattern Blood Pressure 175/97 H Blood Pressure [Right Arm] Blood Pressure Mean 123 Blood Pressure Mean [Right Arm] Blood Pressure Position Blood Pressure Position [Right Arm] Pulse Oximetry 96 98 98 Oxygen Delivery Method Room Air Room Air Room Air Sepsis Recent Fever Within 48 Hours Sepsis New/Unexplained Change in Mental Status Sepsis Action Taken by Nursing 05/12/21 18:00 05/12/21 18:30 Temperature Temperature Source Pulse Rate 64 63 Pulse Rate from SpO2 Sensor Respiratory Rate 16 20 Respiratory Effort / Characteristics Respiratory Depth Respiratory Pattern Blood Pressure 140/103 H 144/75 H Blood Pressure [Right Arm] Blood Pressure Mean 115 98 Blood Pressure Mean [Right Arm] Blood Pressure Position Blood Pressure Position [Right Arm] Pulse Oximetry 98 98 Oxygen Delivery Method Room Air Room Air Sepsis Recent Fever Within 48 Hours Sepsis New/Unexplained Change in Mental Status Sepsis Action Taken by Nursing Laboratory Data Result diagrams: 05/12/21 15:30 05/12/21 15:30 Lab Results 05/12/21 05/12/21 05/12/21 Range/Units 15:30 15:30 15:30 WBC 10.77 (4.8-10.8) K/uL RBC 3.60 L (4.7-6.1) M/uL Hgb 11.9 L (14.0-18.0) g/dL Hct 36.2 L (42-52) % MCV 100.6 H (80-100) fL MCH 33.1 (25-34) pg MCHC 32.9 (32-36) g/dL RDW Std Deviation 49.1 H (36.4-46.3) fL RDW Coeff of Jorge A 13.5 (11.5-14.5) % Plt Count 253 (130-400) K/uL MPV 10.2 (7.4-10.4) fL Immature Gran % (Auto) 0.6 % Neut % (Auto) 72.6 % Lymph % (Auto) 15.5 % [place] % (Auto) 8.4 % Eos % (Auto) 2.5 % Baso % (Auto) 0.4 % Neut # (Auto) 7.81 H (1.4-6.5) K/uL Lymph # (Auto) 1.67 (1.2-3.4) K/uL [place] # (Auto) 0.91 H (0.11-0.59) K/uL Eos # (Auto) 0.27 (0-0.5) K/uL Baso # (Auto) 0.04 (0-0.2) K/uL Immature Gran # (Auto) 0.07 H (0.00-0.02) K/uL ESR (0-20) mm/hr PT 12.7 H (9.0-12.0) Seconds INR 1.3 H (0.9-1.1) Sodium 135 L (136-145) mmol/L Potassium 4.6 (3.5-5.1) mmol/L Chloride 93 L (98-107) mmol/L Carbon Dioxide 32 (21-32) mmol/L Anion Gap 10 (3-11) BUN 27 H (6-23) mg/dl Creatinine 5.05 H* (0.6-1.4) mg/dl Est Cr Clr Drug Dosing 19.8 ml/min Est GFR ( Amer) 12.9 ml/min Est GFR (Non-Af Amer) 11.1 ml/min BUN/Creatinine Ratio 5.3 L (10-20) Glucose 104 H (70-99(Fasting)) mg/dl Lactate (0.4-2.0) mmol/L Calcium 8.9 (8.5-10.1) mg/dl Total Bilirubin 0.5 (0.2-1.0) mg/dl AST 11 L (13-39) U/L ALT 10 (7-52) U/L Alkaline Phosphatase 75 (34-104) U/L C-Reactive Protein 1.93 H (0-0.5) mg/dl Total Protein 8.1 (6.0-8.3) gm/dl Albumin 4.2 (3.4-5.0) gm/dl Globulin 3.9 (2.5-4.0) gm/dl Albumin/Globulin Ratio 1.1 (0.9-2) SARS-CoV-2, RNA, NAAT (NEGATIVE) 05/12/21 05/12/21 05/12/21 Range/Units 15:30 15:47 17:53 WBC (4.8-10.8) K/uL RBC (4.7-6.1) M/uL Hgb (14.0-18.0) g/dL Hct (42-52) % MCV (80-100) fL MCH (25-34) pg MCHC (32-36) g/dL RDW Std Deviation (36.4-46.3) fL RDW Coeff of Jorge A (11.5-14.5) % Plt Count (130-400) K/uL MPV (7.4-10.4) fL Immature Gran % (Auto) % Neut % (Auto) % Lymph % (Auto) % [place] % (Auto) % Eos % (Auto) % Baso % (Auto) % Neut # (Auto) (1.4-6.5) K/uL Lymph # (Auto) (1.2-3.4) K/uL [place] # (Auto) (0.11-0.59) K/uL Eos # (Auto) (0-0.5) K/uL Baso # (Auto) (0-0.2) K/uL Immature Gran # (Auto) (0.00-0.02) K/uL ESR 69 H (0-20) mm/hr PT (9.0-12.0) Seconds INR (0.9-1.1) Sodium (136-145) mmol/L Potassium (3.5-5.1) mmol/L Chloride (98-107) mmol/L Carbon Dioxide (21-32) mmol/L Anion Gap (3-11) BUN (6-23) mg/dl Creatinine (0.6-1.4) mg/dl Est Cr Clr Drug Dosing ml/min Est GFR ( Amer) ml/min Est GFR (Non-Af Amer) ml/min BUN/Creatinine Ratio (10-20) Glucose (70-99(Fasting)) mg/dl Lactate 0.8 (0.4-2.0) mmol/L Calcium (8.5-10.1) mg/dl Total Bilirubin (0.2-1.0) mg/dl AST (13-39) U/L ALT (7-52) U/L Alkaline Phosphatase (34-104) U/L C-Reactive Protein (0-0.5) mg/dl Total Protein (6.0-8.3) gm/dl Albumin (3.4-5.0) gm/dl Globulin (2.5-4.0) gm/dl Albumin/Globulin Ratio (0.9-2) SARS-CoV-2, RNA, NAAT NEGATIVE (NEGATIVE) Administered Medications Discontinued Medications Daptomycin 575 mg/ Syringe 11.5 mls @ 5.75 mls/min IV NOW ONE; Protocol Stop: 05/12/21 16:01 Last Admin: 05/12/21 16:46 Dose: 5.75 mls/min Documented by: [id number] Piperacillin Sod/Tazobactam Sod (Zosyn) 4.5 gm in 120 mls @ 240 mls/hr IV NOW ONE Stop: 05/12/21 16:29 Last Infusion: 05/12/21 16:44 Dose: 0 mls/hr Documented by: [id number] Admin: 05/12/21 16:10 Dose: 240 mls/hr Documented by: [id number] Imaging Data Radiologist's Impression: Head CT 05/12/21 15:53 CT head/brain wo con CLINICAL HISTORY: confusion Technique: Contiguous axial CT images of the head were acquired from the base of the skull to the vertex without intravenous contrast administration. Images were viewed in brain, subdural and bone windows. Automated dose lowering techniques and/or adjustment according to patient size were utilized for this exam. Comparison: Comparison is made to CT head 04/04/2021 Findings: The ventricles, basal cisterns, and cerebral sulci are normal. There is no acute intracranial hemorrhage or evidence of acute territorial infarction. Neither ma ss effect, shift of the midline structures, nor abnormal extra-axial fluid collections are shown. It is retention cyst is seen in the left maxillary sinus. The orbits appear normal. There are no acute fractures of the calvaria or scalp swelling. Impression: No acute intracranial hemorrhage, no evidence of acute territorial infarction or other acute intracranial disease process. ACT 112: Negative or not required by law. Electronically signed by: Kishan Burns M.D. 05/12/2021 5:16 PM Discharge Plan Visit Data Chief Complaint: Infection, Wound Stated Complaint: INFECTION IN LEFT FOOT ED Provider: Denys Olsen ED Midlevel Provider: Yaya Tabor Discharge Problem: Gangrenous toe, Diabetes mellitus, End-stage renal disease (ESRD), Wound of left foot Prescriptions Prescriptions: No Action amlodipine 10 mg tablet 10 mg PO HS Qty: 90 RF: 3 aspirin 81 mg tablet,chewable 81 mg PO HS Qty: 90 RF: 3 furosemide [Lasix] 80 mg tablet 80 mg PO BID Qty: 180 RF: 3 gabapentin 100 mg capsule 300 mg PO HS Qty: 270 RF: 3 levothyroxine 125 mcg tablet 125 mcg PO DAILYBB Qty: 90 RF: 3 omeprazole 20 mg capsule,delayed release(DR/EC) 20 mg PO DAILY Qty: 30 RF: 11 carvedilol 12.5 mg tablet 12.5 mg PO BID Qty: 60 RF: 11 (DME) HYDRAULIC KHADAR LIFT See Rx Instructions .Route .MEDSUPPLY Qty: 1 RF: 0 (DME) FreeStyle Virgil 14 Day Sensor Kit See Dose Instructions .ROUTE .MEDSUPPLY Qty: 6 RF: 3 (DME) FreeStyle Virgil 14 Day [place] Misc See Rx Instructions .ROUTE .MEDSUPPLY Qty: 1 RF: 5 nitroglycerin 0.4 mg tablet, sublingual 0.4 mg sublingual DIRECTED PRN (Reason: Chest Pain) RF: 0 Lantus U-100 Insulin 100 unit/mL Solution 16 unit SUBCUT QAM RF: 0 loperamide [Imodium A-D] 2 mg capsule 2 mg PO DIRECTED PRN (Reason: loose stool) RF: 0 simvastatin 20 mg tablet 20 mg PO HS RF: 0 nystatin 100,000 unit/gram powder 1 applic topical BID PRN (Reason: irritation) RF: 0 sevelamer carbonate 800 mg tablet 2,400 mg PO TIDM RF: 0 losartan 50 mg tablet 50 mg PO HS RF: 0 buspirone 10 mg tablet 10 mg PO BID RF: 0 escitalopram oxalate 10 mg tablet 10 mg PO QAM RF: 0 ciprofloxacin HCl 500 mg tablet 500 mg PO DAILY 13 Days Qty: 13 RF: 0 sulfamethoxazole-trimethoprim [Bactrim DS] 800-160 mg tablet 1 tab PO DAILY 13 Days Qty: 13 RF: 0
[2021-05-12 15:57] LABS: Basophils # (auto) 0.04 K/uL (0-0.2); Basophils % (auto) 0.4 %; Eosinophils # (auto) 0.27 K/uL (0-0.5); Eosinophils % (auto) 2.5 %; Hematocrit (blood only) 36.2 % (42-52); Hemoglobin 11.9 g/dL (14.0-18.0); Immature Granulocytes # (auto) 0.07 K/uL (0.00-0.02); Immature Granulocytes % (auto) 0.6 %; Lymphocytes # (auto) 1.67 K/uL (1.2-3.4); Lymphocytes % (auto) 15.5 %; Mean Corpuscular Hemoglobin 33.1 pg (25-34); Mean Corpuscular Hgb Conc 32.9 g/dL (32-36); Mean Corpuscular Volume 100.6 fL (80-100); Mean Platelet Volume 10.2 fL (7.4-10.4); Monocytes # (auto) 0.91 K/uL (0.11-0.59); Monocytes % (auto) 8.4 %; Neutrophils # (auto) 7.81 K/uL (1.4-6.5); Neutrophils % (auto) 72.6 %; Platelet Count 253 K/uL (130-400); RDW Coefficient of Variation 13.5 % (11.5-14.5); RDW Standard Deviation 49.1 fL (36.4-46.3); White Blood Count 10.77 K/uL (4.8-10.8)
[2021-05-12] MEDS ORDERED: PIPERACILLIN/TAZOBACTAM 4.5 GM/120 ML BAG IV ONE (16:00)
[2021-05-12] MEDS ORDERED: DAPTOmycin 575 MG in SYRINGE 0 ML IV ONE (16:00)
[2021-05-12 16:10] LABS: INR 1.3 (0.9-1.1); Prothrombin Time 12.7 Seconds (9.0-12.0)
[2021-05-12 16:26] LABS: Albumin Globulin Ratio 1.1 (0.9-2); Albumin Level 4.2 gm/dl (3.4-5.0); BUN Creatinine Ratio 5.3 (10-20); Bilirubin,Total 0.5 mg/dl (0.2-1.0); C Reactive Protein 1.93 mg/dl (0-0.5); Calcium 8.9 mg/dl (8.5-10.1); Creatinine Clr Calc Pharmacy 19.8 ml/min; Est GFR (African American) 12.9 ml/min; Est GFR (Non-African American) 11.1 ml/min; Globulin 3.9 gm/dl (2.5-4.0); Potassium 4.6 mmol/L (3.5-5.1); Total Protein 8.1 gm/dl (6.0-8.3)
--- NOTE | 2021-05-12 17:17 | CT Scan Report ---
CT head/brain wo con CLINICAL HISTORY: confusion Technique: Contiguous axial CT images of the head were acquired from the base of the skull to the sana shai without intravenous contrast administration. Images were viewed in brain, subdural and [facility]. Automated dose lowering techniques and/or adjustment according to patient size were utilized for this exam. Comparison: Comparison is made to CT head 04/04/2021 Findings: The ventricles, basal cisterns, and cerebral sulci are normal. There is no acute intracranial hemorrh age or evidence of acute territorial infarction. Neither mass effect, shift of the midline structures , nor abnormal extra-axial fluid collections are shown. It is retention cyst is seen in the left maxillary sinus. The orbits appear normal. There are no acu te fractures of the calvaria or scalp swelling. Impression: No acute intracranial hemorrhage, no evidence of acute territorial infarction or other acute intracra nial disease process. ACT 112: Negative or not required by law. Electronically signed by: Kishan Burns M.D. 05/12/2021 5:16 PM
--- NOTE | 2021-05-12 20:09 | History & Physical Report ---
Date of Service May 12, 2021 Assessment & Plan (1) Gangrenous toe: Plan: dry gangrene likely on tips of toes - cleansed with sterile water - as below (2) Wound of left foot: Plan: As above diabetic foot ulcer - Daptomycin renal dosed - Zosyn- renal dosed - CT scan eval for osteo involvement - MATT of left foot - May need chemical or surgical debridement - WOCN consult placed- appreciate assistance (3) End-stage renal disease (ESRD): Plan: Dialysis dependant renal failure - dialysis fistula with good thrill and bruit - Nephrology consulted for dialysis in house - T/TH/TUE (4) Idiopathic polyneuropathy: Plan: Continue gabapentin (5) GERD (gastroesophageal reflux disease): Plan: Continue omeprazole (6) Peripheral arterial disease: Plan: Angioplasty of the posterior tibial artery on the right done 2020 secondary to poor healing heel ulcer - MATT of the left leg via US with left foot ulcerations - Continue ASA (7) Current smoker: Plan: Not interested in quitting - aware he can't smoke while in house - Nicotene patch (8) On home oxygen therapy: Plan: Via his CPAP machine 2L oxygen bled in (9) Anemia in chronic kidney disease: Plan: Stable (10) Pleural effusion, left: Plan: Chronic- likely secondary to ESRD (11) Depression: Plan: Continue escitalopram (12) Hypothyroidism: Plan: Continue Synthroid 125 mcg (13) Obstructive sleep apnea: Plan: CPAP at night- AutoPAP or CPAP of 7 (14) Morbid obesity with BMI of 40.0-44.9, adult: Plan: BMI 43.6 History of Present Illness Chief Complaint: concern for left foot infection / multiple toes with ulcers Primary Care Provider: Veto Gan, DO 65 YOM with past medical history of: Morbid obesity, ESRD on dialysis T//Tue, HTN, Hypothyroidism, JANET, Depression, AOCD, Nicotine dependance, diabetic neuropathy, PAD, GERD, idiopathic polyneuropathy. Patient was referred to the EMD today via EMS from his dialysis center for concerns of diabetic foot ulcer of his left toes. Patient states he originally ordered this last week while trying to slide himself up in bed and he can't feel it so didn't notice it. He was in the EMD on Tuesday for evaluation of these ulcerations, where he left without being admitted secondary to he wanted to "smoke and eat something". He was given Cipro and Bactrim. In the EMD he had routine labs drawn including blood culture and gram stain from the left toes. He was started on Daptomycin. Hospitalist was notified for admission. Patient says he only wants to "stay overnight and go home in the morning", patient was instructed that oral antibiotics may not cover his wound until we get culture results, imaging to rule out infection of the bone, and cleaning/debridement of the wound may be needed. We discussed that noncompliance or leaving on the wrong antibiotics may lead to sepsis, toe or foot amputation at least and . The patient then agreed to stay and will likely need continued enforcement of this. He will be continued on Daptomycin add Zosyn, obtain CT scan of the foot evaluate for bone involvement, wound care consult and MATT of the left leg. Nephrology will be consulted to continue his dialysis while in patient. Allergies Allergy/AdvReac Type Severity Reaction Status Date / Time lactose Allergy Intermediate Gastrointestinal Verified 05/12/21 15:53 Upset No Known Drug Allergies Allergy NKDA Verified 05/12/21 15:53 Home Medications Medication Instructions Recorded Confirmed Type amlodipine 10 mg tablet 10 mg PO HS #90 tab 06/26/20 05/12/21 Rx aspirin 81 mg chewable tablet 81 mg PO HS #90 tab 06/26/20 05/12/21 Rx furosemide 80 mg tablet (Lasix) 80 mg PO BID #180 tab 06/26/20 05/12/21 Rx gabapentin 100 mg capsule 300 mg PO HS #270 cap 06/26/20 05/12/21 Rx levothyroxine 125 mcg tablet 125 mcg PO DAILYBB #90 tab 06/26/20 05/12/21 Rx nitroglycerin 0.4 mg sublingual 0.4 mg SUBLINGUAL DIRECTED PRN 07/11/20 05/12/21 History tablet carvedilol 12.5 mg tablet 12.5 mg PO BID #60 tab 11/06/20 05/12/21 Rx omeprazole 20 mg capsule,delayed 20 mg PO DAILY #30 cap 11/06/20 05/12/21 Rx release insulin glargine 100 unit/mL 16 unit SUBCUT QAM 01/05/21 05/12/21 History subcutaneous solution (Lantus U-100 Insulin) loperamide 2 mg capsule (Imodium 2 mg PO DIRECTED PRN 01/05/21 05/12/21 History A-D) HYDRAULIC KHADAR LIFT #1 ea 01/26/21 05/04/21 Rx FreeStyle Virgil 14 Day Sensor #6 ea NS 02/24/21 05/04/21 Rx (flash glucose sensor) FreeStyle Virgil 14 Day Imperial #1 ea NS 03/08/21 05/04/21 Rx (flash glucose scanning reader) nystatin 100,000 unit/gram topical 1 applic TOPICAL BID PRN 04/04/21 05/12/21 History powder sevelamer carbonate 800 mg tablet 2,400 mg PO TIDM 04/04/21 05/12/21 History buspirone 10 mg tablet 10 mg PO BID 05/09/21 05/12/21 History ciprofloxacin HCl 500 mg tablet 500 mg PO DAILY 13 Days #13 tab 05/09/21 05/12/21 Rx escitalopram oxalate 10 mg tablet 10 mg PO QAM 05/09/21 05/12/21 History losartan 50 mg tablet 50 mg PO HS 05/09/21 05/12/21 History sulfamethoxazole 800 1 tab PO DAILY 13 Days #13 tab 05/09/21 05/12/21 Rx mg-trimethoprim 160 mg tablet (Bactrim DS) simvastatin 20 mg tablet 20 mg PO HS 05/12/21 05/12/21 History Past Med/Surg History Medical History (Updated 05/13/21 @ 14:55 by Perez Burkett) Acute hyperkalemia Anemia in chronic kidney disease Anxiety Aspiration into lower respiratory tract Cellulitis of leg, right Dyslipidemia Dysphagia Excessive cerumen in both ear canals GERD (gastroesophageal reflux disease) Left lower lobe pneumonia LLL pneumonia Missed dialysis Obstructive sleep apnea [id number] On home oxygen therapy 2L n/c with cpap at HS Osteoarthritis Peripheral arterial disease Peripheral neuropathy bilt legs/feet Pleural effusion, left Secondary hyperparathyroidism of renal origin Sepsis Surgical History History of bilateral cataract extraction History of cardiac cath 01/2018 "about 2-3 weeks"; no stents placed @ [facility] by Dr. Coronel History of carpal tunnel release R wrist History of colonoscopy History of repair of anterior cruciate ligament of left knee History of repair of anterior cruciate ligament of right knee History of tonsillectomy History of tooth extraction wisdom teeth Family History Mother Family history of diabetes mellitus Grandmother Family history of diabetes mellitus maternal Other Colorectal cancer Inflammatory bowel disease Melanoma Social History Smoking Status: Current every day smoker Tobacco Type: Cigarettes Age Started Using Tobacco: 15; Cigarettes Per Day: 15 a day; Second Hand Exposure: Yes; Hx Alcohol Use: No Hx Substance Use: No Preferred Language: Luxembourgish Communication Ability: Effective 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 Beliefs That Will Affect Care: None marital status: Single Current Living Situation: Alone Current Living Situation Comment: [facility] current occupational status: retired How many Children do You have: 2 Feels Safe at Home: Yes Safety Concerns: Feels Safe At This Time Seatbelt Use: always Assistive Devices: CPAP Review of Systems Review of Systems: REVIEW OF SYSTEMS: Constitutional: No fever, sweats or chills Eyes: No diplopia, no worsening or blurred vision ENT: normal hearing, no trouble swallowing Respiratory: (+) chronic fatigue and dyspnea, JANET, No cough, sputum, Cardiovascular: No chest pain, tightness or palpitations Abdomen: No pain, nausea, vomiting, diarrhea or constipation Musculoskeletal: No joint pain, calf pain, swelling Neurologic: (+) diabetic neuropathy to hands and fee, generalized overall weakness Psychiatric: (+) anxiety or depression Skin: (+) ulceration and old skin graft to right foot, right foot cooler than left but with good pulses known PAD Physical Exam Physical Exam: PHYSICAL EXAM: General: awake, alert, no apparent distress Head: Normocephalic, atraumatic ENT: PERRL, EOMI, no pharyngeal exudate, mucous membranes dry. Neuro: AAO x 3, speech slow, clear and appropriate, strength intact bilaterally 5/5, decreased sensation in the lower extremities bilaterally below the knees, Chest: equal rise and fall of the chest, no accessory muscle use, deminished in the bases bilaterally secondary to body habitus, Left upper arm AV fistula with good thrill and good bruit. Cardiac: Regular rate and rhythm, telemetry reviewed, skin warm dry, cap refill <3 seconds, peripheral pusles +2 no JVD, no murmur, no edema GI: NABS x 4 quadrants, soft, nontender to palpation, no rebound, guarding or tenderness : makes little urine every few weeks Extremities: Normal inspection, no peripheral edema or erythema, calfs nontender to palpation Psych: Normal mood and affect Results & Data Results & Data ([facility]) Vital Signs (Past 12 Hours) Vital Signs Temp Pulse Resp BP BP Pulse Ox 05/12/21 18:30 63 20 144/75 H 98 05/12/21 18:00 64 16 140/103 H 98 05/12/21 17:30 60 13 98 05/12/21 16:30 58 L 18 98 05/12/21 16:00 59 L 16 175/97 H 96 05/12/21 15:38 37.3 C 19 180/60 H 98 05/12/21 15:32 12 180/60 H 95 05/12/21 14:46 37 C 57 L 20 155/68 H 94 Laboratory Results Abnormal lab results 05/12/21 05/12/21 05/12/21 Range/Units 15:30 15:30 15:30 RBC 3.60 L (4.7-6.1) M/uL Hgb 11.9 L (14.0-18.0) g/dL Hct 36.2 L (42-52) % MCV 100.6 H (80-100) fL RDW Std Deviation 49.1 H (36.4-46.3) fL Neut # (Auto) 7.81 H (1.4-6.5) K/uL [place] # (Auto) 0.91 H (0.11-0.59) K/uL Immature Gran # (Auto) 0.07 H (0.00-0.02) K/uL ESR (0-20) mm/hr PT 12.7 H (9.0-12.0) Seconds INR 1.3 H (0.9-1.1) Sodium 135 L (136-145) mmol/L Chloride 93 L (98-107) mmol/L BUN 27 H (6-23) mg/dl Creatinine 5.05 H* (0.6-1.4) mg/dl BUN/Creatinine Ratio 5.3 L (10-20) Glucose 104 H (70-99(Fasting)) mg/dl AST 11 L (13-39) U/L C-Reactive Protein 1.93 H (0-0.5) mg/dl 05/12/21 Range/Units 15:30 RBC (4.7-6.1) M/uL Hgb (14.0-18.0) g/dL Hct (42-52) % MCV (80-100) fL RDW Std Deviation (36.4-46.3) fL Neut # (Auto) (1.4-6.5) K/uL [place] # (Auto) (0.11-0.59) K/uL Immature Gran # (Auto) (0.00-0.02) K/uL ESR 69 H (0-20) mm/hr PT (9.0-12.0) Seconds INR (0.9-1.1) Sodium (136-145) mmol/L Chloride (98-107) mmol/L BUN (6-23) mg/dl Creatinine (0.6-1.4) mg/dl BUN/Creatinine Ratio (10-20) Glucose (70-99(Fasting)) mg/dl AST (13-39) U/L C-Reactive Protein (0-0.5) mg/dl Diagnostic Findings Head CT 05/12/21 15:53 CT head/brain wo con CLINICAL HISTORY: confusion Technique: Contiguous axial CT images of the head were acquired from the base of the skull to the vertex without intravenous contrast administration. Images were viewed in brain, subdural and bone windows. Automated dose lowering techniques and/or adjustment according to patient size were utilized for this exam. Comparison: Comparison is made to CT head 04/04/2021 Findings: The ventricles, basal cisterns, and cerebral sulci are normal. There is no acute intracranial hemorrhage or evidence of acute territorial infarction. Neither mas s effect, shift of the midline structures, nor abnormal extra-axial fluid collections are shown. It is retention cyst is seen in the left maxillary sinus. The orbits appear normal. There are no acute fractures of the calvaria or scalp swelling. Impression: No acute intracranial hemorrhage, no evidence of acute territorial infarction or other acute intracranial disease process. ACT 112: Negative or not required by law. Electronically signed by: Kishan Burns M.D. 05/12/2021 5:16 PM Medications Administered Discontinued Medications Daptomycin 575 mg/ Syringe 11.5 mls @ 5.75 mls/min IV NOW ONE; Protocol Stop: 05/12/21 16:01 Last Admin: 05/12/21 16:46 Dose: 5.75 mls/min Documented by: [id number] Piperacillin Sod/Tazobactam Sod (Zosyn) 4.5 gm in 120 mls @ 240 mls/hr IV NOW ONE Stop: 05/12/21 16:29 Last Infusion: 05/12/21 16:44 Dose: 0 mls/hr Documented by: [id number] Admin: 05/12/21 16:10 Dose: 240 mls/hr Documented by: [id number] ECG Additional Comments: none done on admissioin Code Status & VTE Plan Code Status CODE: DNR/DNI VTE: SCDS, Heparin 5000 units subq Q8 VTE Prophylaxis Plan VTE Prophylaxis will be ordered: Yes Supervising Physician Co-Signing Physician Notes Attending Attestation & Admit Note: Pt seen/examined, chart reviewed, care plan d/w YV Ring. I agree with the eng components of his documentation with the following addition - left foot - pulses 1-2+ b/l, cap refill <2 seconds left foot. Gangrene distal tips of digits 2 and 3. Ulceration present on tops of these two toes with associated swelling, erythema, and drainage. Small amount of erythema on 4th toe. Lateral malleolus of ankle - ulcer present, no surrounding erythema. right foot - severe xerosis 65yo male with ESRD on HD Tues/Thurs/Sat, PAD, Morbid obesity, T2DM, hypothyroidism - presents with concerns for ongoing left foot 2nd/3rd toe infections. Admission was advised a few days ago - refused such, d/c home from ER with cipro/bactrim. Returns at the urging of his criminal psychologist, Dr Francis. Denies any fevers/chills/anorexia. PMH/PSH/allergies/meds/sochx/famhx - reviewed vitals stable, no fever gen - morbidly obese, NAD neck - no JVD heart - RRR, s1 s2 lungs - CTA b/l abd - soft NT BS+ vascular - left upper arm AV fistula with bruit ext - foot exam - see above labs reviewed imaging reviewed A/P: Dry gangrene of L 2nd/3rd toes. Toe ulcers - same digits - with superimposed infection. PAD, but no high-grade stenosis of vessels of left leg on recent arterial duplex several days ago. Morbid obesity. ESRD on HD T/Th/Sat. T2DM. CT left foot to assess for bone involvement, deep abscess, etc. May need MRI. I am concerned he will ultimately need amputation of the 2nd/3rd toes given the gangrene. IV antibiotics. Will likely need ortho or vascular surgery consultation for surgical intervention. Wound care nurse consult for local wound care recs. Perez Burkett MD PG Care Time/CCT Total # of Minutes Spent Total Time Spent with Patient: Total time spent is greater than 50% in coordination of care (as documented) at patient's floor/unit and/or counseling patient: Coding Level of Care Code 87711 Initial Inpt Care Lvl 3 Diagnoses Gangrenous toe I96 Wound of left foot S91.302A End-stage renal disease (ESRD) N18.6 Idiopathic polyneuropathy G60.9 GERD (gastroesophageal reflux disease) K21.9 Peripheral arterial disease I73.9 Current smoker F17.200 On home oxygen therapy Z99.81 Anemia in chronic kidney disease N18.6; D63.1; Z99.2 Chronic kidney disease stage: on chronic dialysis Pleural effusion, left J90 Depression F32.9 Depression Type: unspecified Hypothyroidism E03.9 Hypothyroidism type: unspecified Obstructive sleep apnea G47.33 Morbid obesity with BMI of 40.0-44.9, adult E66.01; Z68.41 (1) Depression Depression Type: unspecified Qualified Code(s): F32.9 - Major depressive disorder, single episode, unspecified (2) Hypothyroidism Hypothyroidism type: unspecified Qualified Code(s): E03.9 - Hypothyroidism, unspecified (3) Anemia in chronic kidney disease Chronic kidney disease stage: on chronic dialysis Qualified Code(s): N18.6 - End stage renal disease; D63.1 - Anemia in chronic kidney disease; Z99.2 - Dependence on renal dialysis
--- NOTE | 2021-05-12 21:00 | CT Scan Report ---
CT foot LT wo con CLINICAL HISTORY: evalaute osteo or bone involvement. Blackened toes. TECHNIQUE: Multidetector row helical CT of the left foot was performed without intravenous contrast. Coronal and sagittal reformations were obtained. Automated dose lowering techniques and/or adjustment according to patient size were utilized for this examination. Comparison: None available at the time of this dictation. FINDINGS: Exam is limited by patient motion. The osseous structures are without fracture or dislocation. No focal erosive changes are seen to sugg est osteomyelitis. Soft tissue swelling is seen about the left foot. IMPRESSION: Soft tissue swelling without evidence of underlying osteomyelitis. Limited exam. If further evaluatio n is desired, MRI can be performed. ACT 112: Negative or not required by law. Electronically signed by: Kishan Burns M.D. 05/12/2021 8:59 PM
[2021-05-12] MEDS ORDERED: CARBOHYDRATES FOR HYPOGLYCEMIA PO PRN (22:06)
[2021-05-12] MEDS ORDERED: GLUCAGON FOR INJ 1 MG VIAL SQ PRN (22:06)
[2021-05-12] MEDS ORDERED: PIPERACILL/TAZOBAC CONSULT ACTIVE PRN (22:06)
[2021-05-12] MEDS ORDERED: GLUCOSE 10 TABS/TUBE PO PRN (22:06)
[2021-05-12] MEDS ORDERED: NITROGLYCERIN SL 0.4 MG/TAB TAB SL PRN (22:06)
[2021-05-12] MEDS ORDERED: GLUCOSE 40% GEL 15 GM TUBE PO PRN (22:06)
[2021-05-12] MEDS ORDERED: DEXTROSE 50% 50 ML SYRINGE IV PRN (22:06)
[2021-05-13] MEDS: amLODIPine BESYLATE 5 MG TAB PO SCH ×2 (00:27→20:55)
[2021-05-13] MEDS: busPIRone 5 MG TAB PO SCH ×3 (00:28→20:56)
[2021-05-13] MEDS: FUROSEMIDE 80 MG TAB PO SCH ×3 (00:32→20:56)
[2021-05-13] MEDS: carvediloL 12.5 MG TAB PO SCH ×3 (00:32→20:56)
[2021-05-13] MEDS: LOSARTAN POTASSIUM 50 MG TAB PO SCH ×2 (00:34→20:56)
[2021-05-13] MEDS: GABAPENTIN 300 MG CAP PO SCH ×2 (00:35→20:56)
[2021-05-13] MEDS: SIMVASTATIN 20 MG TAB PO SCH ×2 (00:36→20:56)
[2021-05-13] MEDS: ASPIRIN 81 MG ECTAB PO SCH ×2 (00:36→20:56)
[2021-05-13] MEDS: NICOTINE 21 MG/24 HR TDSY TD SCH ×2 (00:38→10:24)
[2021-05-13] MEDS: HEPARIN SOD 5,000 UNIT/0.5 ML VIAL SQ SCH ×4 (00:41→22:22)
[2021-05-13] MEDS: PIPERACILLIN/TAZOBACTAM 4.5 GM in DEXTROSE 5% 100 ML IV SCH ×3 (00:45→23:52)
[2021-05-13] MEDS: INSULIN ASPART PER UNIT SC SCH ×5 (01:53→22:22)
[2021-05-13 06:01] LABS: Basophils # (auto) 0.03 K/uL (0-0.2); Basophils % (auto) 0.3 %; Eosinophils # (auto) 0.26 K/uL (0-0.5); Eosinophils % (auto) 2.9 %; Hematocrit (blood only) 34.6 % (42-52); Hemoglobin 11.2 g/dL (14.0-18.0); Immature Granulocytes # (auto) 0.03 K/uL (0.00-0.02); Immature Granulocytes % (auto) 0.3 %; Lymphocytes # (auto) 1.86 K/uL (1.2-3.4); Lymphocytes % (auto) 20.5 %; Mean Corpuscular Hemoglobin 32.7 pg (25-34); Mean Corpuscular Hgb Conc 32.4 g/dL (32-36); Mean Corpuscular Volume 101.2 fL (80-100); Mean Platelet Volume 10.2 fL (7.4-10.4); Monocytes # (auto) 0.64 K/uL (0.11-0.59); Neutrophils # (auto) 6.27 K/uL (1.4-6.5); Platelet Count 233 K/uL (130-400); RDW Coefficient of Variation 13.4 % (11.5-14.5); RDW Standard Deviation 49.6 fL (36.4-46.3); Red Blood Count 3.42 M/uL (4.7-6.1); White Blood Count 9.09 K/uL (4.8-10.8)
[2021-05-13 06:24] LABS: BUN Creatinine Ratio 5.7 (10-20); Calcium 9.1 mg/dl (8.5-10.1); Creatinine Clr Calc Pharmacy 14.3 ml/min; Est GFR (African American) 8.7 ml/min; Est GFR (Non-African American) 7.5 ml/min; Magnesium 2.1 mg/dl (1.7-2.4); Potassium 4.7 mmol/L (3.5-5.1)
[2021-05-13] MEDS: LEVOTHYROXINE SODIUM 125 MCG TABLET PO SCH (06:33)
--- NOTE | 2021-05-13 07:30 | Ultrasound Report ---
US ankle/brachial index ltd CLINICAL HISTORY: left foot diabetic ulceration with gangrene COMPARISON STUDY: Bilateral lower extremity arterial Doppler ultrasound May 09, 2021. CTA of the right lower extremity May 09, 2020. TECHNIQUE: Bilateral ankle to brachial indices were obtained. FINDINGS: The right ankle-brachial index measured 1.28 and the left ankle-brachial index measured 1.2 7. IMPRESSION: Normal bilateral ankle to brachial indices. ACT 112: Negative or not required by law. Electronically signed by: Quentin Morales M.D. 05/13/2021 7:29 AM
[2021-05-13] MEDS ORDERED: INSULIN GLARGINE SOLOSTAR 100 UNITS/ML 3 ML PEN SQ SCH (09:00)
[2021-05-13] MEDS: SEVELAMER HCL 800 MG TABLET PO SCH ×3 (09:18→18:04)
[2021-05-13] MEDS: ESCITALOPRAM OXALATE 10 MG TAB PO SCH (10:05)
[2021-05-13] MEDS: PANTOprazole 40 MG TAB PO SCH (10:06)
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
[2021-05-13] MEDS ORDERED: PIPERACILLIN/TAZOBACTAM 4.5 GM/120ML D5W IV ONE (13:04)
--- NOTE | 2021-05-13 13:25 | Emergency Department Note ---
ED Visit Note Pt. seen with Dr. Olsen on 05/12, please see his note for details . 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
--- NOTE | 2021-05-13 14:56 | XRay Report ---
XR foot LT min 3V routine CLINICAL HISTORY: left foot injury of 2nd and 3rd toes COMPARISON STUDY: Left foot 05/09/2021. Left foot CT 05/12/2021. FINDINGS: No fracture or dislocation within the left foot. Mild soft tissue swelling within the foref oot, unchanged. There are large plantar and posterior calcaneal spurs again noted. The Lisfranc joint is intact. Mild degenerative changes within the DIP and PIP joints. The bones are osteopenic. No kike tructive change to suggest an osteomyelitis. IMPRESSION: 1. No evidence for osteomyelitis within the left foot. 2. Mild soft tissue swelling within the forefoot, unchanged. 3. No fracture or dislocation. ACT 112: Negative or not required by law. Electronically signed by: Leopoldo Lucero M.D. 05/13/2021 2:54 PM
--- NOTE | 2021-05-13 17:17 | Hospitalist Progress Note ---
Date of Service May 13, 2021 Assessment & Plan (1) Gangrenous toe: Plan: Several toes with gangrene Recently had arterial Dopplers of the bilateral lower extremities which were without significant arterial stenoses ABIs here normal CT foot and x-rays without evidence of osteomyelitis Diabetic foot infection -Continue IV antibiotics in the form of Zosyn and daptomycin Appreciate orthopedic consult-await to determine if needs surgical debridement Wound care consultation (2) Wound of left foot: Plan: As above diabetic foot ulcer (3) End-stage renal disease (ESRD): Plan: Dialysis dependant renal failure - dialysis fistula with good thrill and bruit - Nephrology consulted for dialysis in house -Plan for dialysis T//TUE Follow BMP, CBC -Continue sevelamer (4) Idiopathic polyneuropathy: Plan: Continue gabapentin which is renally dosed (5) GERD (gastroesophageal reflux disease): Plan: Continue (6) Peripheral arterial disease: Plan: Angioplasty of the posterior tibial artery on the right done 2020 secondary to poor healing heel ulcer -As above with recent arterial Dopplers without significant stenoses Continue aspirin, statin (7) Current smoker: Plan: Not interested in quitting - aware he can't smoke while in house - Nicotine patch (8) On home oxygen therapy: Plan: Via his CPAP machine 2L oxygen bled in (9) Anemia in chronic kidney disease: Plan: Stable, hemoglobin 7 (10) Pleural effusion, left: Plan: Chronic- likely secondary to ESRD (11) Depression: Plan: Continue escitalopram (12) Hypothyroidism: Plan: Continue Synthroid 125 mcg Recent TSH mildly elevated at 5 Follow as an outpatient (13) Obstructive sleep apnea: Plan: CPAP at night- AutoPAP or CPAP of 7 (14) Morbid obesity with BMI of 40.0-44.9, adult: Plan: BMI 43.6 Needs weight loss (15) Diabetes mellitus: Plan: Met with certified breastfeeding educator who discovered that the patient actually only takes Lantus 10 units twice daily at home for blood sugar greater than 110, and 5 units if blood glucose less than 130 Discontinue Lantus 16 units and transition to Lantus 5 units twice daily for now Continue NovoLog sliding scale Hemoglobin A1c last checked was 6.9% in 11/2020 but this is likely inaccurate due to pain a dialysis patient and with anemia ADA diet, Accu-Cheks before meals and at bedtime (16) Hypertension: Plan: Blood pressures are controlled Continue home amlodipine 10 mg daily, carvedilol 12.5 mg p.o. twice daily, furosemide 80 mg p.o. twice daily, losartan 50 mg p.o. at bedtime Plan: DVT prophylaxis Heparin SQ Disposition-continued stay Admission and Anticipated Discharge Date Admission Date: May 12, 2021 Subjective Patient reports chronic lower back pain and some pain in the toes. He is anxious about when he will be discharged. I discussed the importance of staying overnight and continued stay for IV antibiotics and possible further surgical debridement of his toe wounds. Denies chest pains, but has his usual shortness of breath. Review of Systems Review of Systems: All systems reviewed & are unremarkable except as noted in HPI & below Physical Exam Physical Exam: PHYSICAL EXAM: General: awake, alert, no apparent distress, morbidly obese Head: Normocephalic, atraumatic ENT: EOMI, anicteric sclerae Neuro: AAO x 3, clear and appropriate, strength intact bilaterally 5/5, decreased sensation in the lower extremities bilaterally below the knees, Chest: equal rise and fall of the chest, no accessory muscle use, diminished in the bases bilaterally secondary to body habitus, Left upper arm AV fistula with good thrill and good bruit. Cardiac: Regular rate and rhythm, telemetry reviewed, skin warm dry, cap refill <3 seconds, peripheral pulses palpable no murmur, trace pitting edema in the feet bilaterally GI: NABS x 4 quadrants, soft, nontender to palpation, no rebound, guarding or tenderness Extremities: Left foot - pulses 1-2+ b/l, cap refill <2 seconds left foot. Gangrene distal tips of digits 2 and 3 with fluctuance and bullae on plantar surface of third toe, ulceration present on tops of these two toes with associated swelling, erythema, and drainage. Small amount of erythema on 4th toe. Lateral malleolus of ankle - ulcer present, no surrounding erythema. Psych: Normal mood and affect Results & Data Results & Data ([facility]) Vital Signs (Past 12 Hours) Vital Signs Pulse Resp BP Pulse Ox 05/13/21 16:26 67 16 92 05/13/21 15:12 73 20 91 05/13/21 14:41 64 19 93 05/13/21 06:26 54 L 18 133/61 98 Laboratory Results 0205/13/21 05/13/21 Range/Units 12:10 08:49 05:35 WBC (4.8-10.8) K/uL RBC (4.7-6.1) M/uL Hgb (14.0-18.0) g/dL Hct (42-52) % MCV (80-100) fL MCH (25-34) pg MCHC (32-36) g/dL RDW Std Deviation (36.4-46.3) fL RDW Coeff of Jorge A (11.5-14.5) % Plt Count (130-400) K/uL MPV (7.4-10.4) fL Immature Gran % (Auto) % Neut % (Auto) % Lymph % (Auto) % [place] % (Auto) % Eos % (Auto) % Baso % (Auto) % Neut # (Auto) (1.4-6.5) K/uL Lymph # (Auto) (1.2-3.4) K/uL [place] # (Auto) (0.11-0.59) K/uL Eos # (Auto) (0-0.5) K/uL Baso # (Auto) (0-0.2) K/uL Immature Gran # (Auto) (0.00-0.02) K/uL Sodium 135 L (136-145) mmol/L Potassium 4.7 (3.5-5.1) mmol/L Chloride 95 L (98-107) mmol/L Carbon Dioxide 29 (21-32) mmol/L Anion Gap 11 (3-11) BUN 40 H (6-23) mg/dl Creatinine 6.98 H* D (0.6-1.4) mg/dl Est Cr Clr Drug Dosing 14.3 ml/min Est GFR ( Amer) 8.7 ml/min Est GFR (Non-Af Amer) 7.5 ml/min BUN/Creatinine Ratio 5.7 L (10-20) Glucose 187 H (70-99(Fasting)) mg/dl POC Glucose 114 H 155 H (70-99) mg/dl Calcium 9.1 (8.5-10.1) mg/dl Magnesium 2.1 (1.7-2.4) mg/dl SARS-CoV-2, RNA, NAAT (NEGATIVE) 0205/13/21 05/12/21 Range/Units 05:35 01:45 17:53 WBC 9.09 (4.8-10.8) K/uL RBC 3.42 L (4.7-6.1) M/uL Hgb 11.2 L (14.0-18.0) g/dL Hct 34.6 L (42-52) % MCV 101.2 H (80-100) fL MCH 32.7 (25-34) pg MCHC 32.4 (32-36) g/dL RDW Std Deviation 49.6 H (36.4-46.3) fL RDW Coeff of Jorge A 13.4 (11.5-14.5) % Plt Count 233 (130-400) K/uL MPV 10.2 (7.4-10.4) fL Immature Gran % (Auto) 0.3 % Neut % (Auto) 69.0 % Lymph % (Auto) 20.5 % [place] % (Auto) 7.0 % Eos % (Auto) 2.9 % Baso % (Auto) 0.3 % Neut # (Auto) 6.27 (1.4-6.5) K/uL Lymph # (Auto) 1.86 (1.2-3.4) K/uL [place] # (Auto) 0.64 H (0.11-0.59) K/uL Eos # (Auto) 0.26 (0-0.5) K/uL Baso # (Auto) 0.03 (0-0.2) K/uL Immature Gran # (Auto) 0.03 H (0.00-0.02) K/uL Sodium (136-145) mmol/L Potassium (3.5-5.1) mmol/L Chloride (98-107) mmol/L Carbon Dioxide (21-32) mmol/L Anion Gap (3-11) BUN (6-23) mg/dl Creatinine (0.6-1.4) mg/dl Est Cr Clr Drug Dosing ml/min Est GFR ( Amer) ml/min Est GFR (Non-Af Amer) ml/min BUN/Creatinine Ratio (10-20) Glucose (70-99(Fasting)) mg/dl POC Glucose 121 H (70-99) mg/dl Calcium (8.5-10.1) mg/dl Magnesium (1.7-2.4) mg/dl SARS-CoV-2, RNA, NAAT NEGATIVE (NEGATIVE) PG Care Time/CCT Total # of Minutes Spent Total Time Spent with Patient: Total time spent is greater than 50% in coordination of care (as documented) at patient's floor/unit and/or counseling patient: Coding Level of Care Code 90891 Subseq Hosp Care Lvl 3 Diagnoses Gangrenous toe I96 Wound of left foot S91.302A End-stage renal disease (ESRD) N18.6 Idiopathic polyneuropathy G60.9 GERD (gastroesophageal reflux disease) K21.9 Peripheral arterial disease I73.9 Current smoker F17.200 On home oxygen therapy Z99.81 Anemia in chronic kidney disease N18.6; D63.1; Z99.2 Chronic kidney disease stage: on chronic dialysis Pleural effusion, left J90 Depression F32.9 Depression Type: unspecified Hypothyroidism E03.9 Hypothyroidism type: unspecified Obstructive sleep apnea G47.33 Morbid obesity with BMI of 40.0-44.9, adult E66.01; Z68.41 Diabetes mellitus E11.69; Z79.4 Diabetes mellitus complication status: with other specified complication Diabetes mellitus prison insulin use: with prison use Diabetes mellitus type: type 2 Hypertension I10 Hypertension type: essential hypertension (1) Anemia in chronic kidney disease Chronic kidney disease stage: on chronic dialysis Qualified Code(s): N18.6 - End stage renal disease; D63.1 - Anemia in chronic kidney disease; Z99.2 - Dependence on renal dialysis (2) Depression Depression Type: unspecified Qualified Code(s): F32.9 - Major depressive disorder, single episode, unspecified (3) Hypothyroidism Hypothyroidism type: unspecified Qualified Code(s): E03.9 - Hypothyroidism, unspecified (4) Diabetes mellitus Diabetes mellitus complication status: with other specified complication Diabetes mellitus 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
[2021-05-14] MEDS: HEPARIN SOD 5,000 UNIT/0.5 ML VIAL SQ SCH ×3 (05:25→22:35)
[2021-05-14 06:00] LABS: Basophils # (auto) 0.04 K/uL (0-0.2); Basophils % (auto) 0.4 %; Eosinophils # (auto) 0.34 K/uL (0-0.5); Eosinophils % (auto) 3.8 %; Hemoglobin 11.8 g/dL (14.0-18.0); Immature Granulocytes # (auto) 0.03 K/uL (0.00-0.02); Immature Granulocytes % (auto) 0.3 %; Mean Corpuscular Hemoglobin 32.8 pg (25-34); Mean Corpuscular Hgb Conc 32.8 g/dL (32-36); Mean Platelet Volume 10.1 fL (7.4-10.4); Monocytes # (auto) 0.67 K/uL (0.11-0.59); Monocytes % (auto) 7.5 %; Neutrophils # (auto) 5.34 K/uL (1.4-6.5); Platelet Count 229 K/uL (130-400); RDW Coefficient of Variation 13.2 % (11.5-14.5); RDW Standard Deviation 48.2 fL (36.4-46.3); White Blood Count 8.92 K/uL (4.8-10.8)
[2021-05-14] MEDS: LEVOTHYROXINE SODIUM 125 MCG TABLET PO SCH (06:32)
[2021-05-14 06:33] LABS: BUN Creatinine Ratio 6.8 (10-20); Calcium 9.4 mg/dl (8.5-10.1); Creatinine Clr Calc Pharmacy 10.7 ml/min; Est GFR (African American) 6.1 ml/min; Est GFR (Non-African American) 5.3 ml/min; Magnesium 2.3 mg/dl (1.7-2.4); Potassium 5.2 mmol/L (3.5-5.1)
[2021-05-14] MEDS: NICOTINE 21 MG/24 HR TDSY TD SCH (08:41)
[2021-05-14] MEDS: SEVELAMER HCL 800 MG TABLET PO SCH ×3 (08:43→18:19)
[2021-05-14] MEDS: busPIRone 5 MG TAB PO SCH ×2 (08:44→20:50)
[2021-05-14] MEDS: ESCITALOPRAM OXALATE 10 MG TAB PO SCH (08:44)
[2021-05-14] MEDS: carvediloL 12.5 MG TAB PO SCH ×2 (08:45→20:50)
[2021-05-14] MEDS: FUROSEMIDE 80 MG TAB PO SCH ×2 (08:47→20:49)
[2021-05-14] MEDS: PANTOprazole 40 MG TAB PO SCH (08:48)
[2021-05-14] MEDS: INSULIN GLARGINE SOLOSTAR 100 UNITS/ML 3 ML PEN SQ SCH ×2 (09:01→20:48)
[2021-05-14] MEDS: INSULIN ASPART PER UNIT SC SCH ×4 (09:01→18:42)
[2021-05-14] MEDS: PIPERACILLIN/TAZOBACTAM 4.5 GM in DEXTROSE 5% 100 ML IV SCH (13:20)
--- NOTE | 2021-05-14 13:42 | Consultation ---
Date of Consultation May 14, 2021 Assessment & Plan (1) PVD (peripheral vascular disease): Pt with dry gangrene of L 2nd/3rd toes, local erythema/edema/and blister formation on surrounding tissue. Pt thinks he injured the toes, but is not sure, since he does not remember a specific event. It is possible that pt has embolized the toes, and must be eval for possible sources of embolization. Recommend CTA of aorta with runoff to eval, as well as echo. Will make further recommendations after imaging. Discussed with ortho as well. History of Present Illness Reason for Consultation: PAD Attending Physician: Ann Leone MD History of Present Illness 65 yo m with hx of PAD, DMII, ESRD on HD, cervical radiculopathy, CVA, GERD, neuropathy, HTN, depression, ambulatory dysfunction, admitted with gangrene of L 2nd and 3rd toes, seen in consultation today for PAD noted on US. 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 Pt states he thinks he struck his toes on the bolts at the bottom of his hospital bed when attempting to push himself up in bed, but is not sure. Does not remember the injury. States his [facility] noted discoloration of the toes last week. Pt denies significant pain in toes. Pt does not ambulate, so unable to determine whether he claudicates. Pt denies rest pain, palpitations, chest pain, SOB, fever, abd pain, N/V, other complaints. Arterial US of BLE demonstrates moderate diffuse disease without focal stenosis. Allergies Allergy/AdvReac Type Severity Reaction Status Date / Time lactose Allergy Intermediate Gastrointestinal Verified 05/12/21 15:53 Upset No Known Drug Allergies Allergy NKDA Verified 05/12/21 15:53 Home Medications Medication Instructions Recorded Confirmed Type amlodipine 10 mg tablet 10 mg PO HS #90 tab 06/26/20 05/12/21 Rx aspirin 81 mg chewable tablet 81 mg PO HS #90 tab 06/26/20 05/12/21 Rx furosemide 80 mg tablet (Lasix) 80 mg PO BID #180 tab 06/26/20 05/12/21 Rx gabapentin 100 mg capsule 300 mg PO HS #270 cap 06/26/20 05/12/21 Rx levothyroxine 125 mcg tablet 125 mcg PO DAILYBB #90 tab 06/26/20 05/12/21 Rx nitroglycerin 0.4 mg sublingual 0.4 mg SUBLINGUAL DIRECTED PRN 07/11/20 05/12/21 History tablet carvedilol 12.5 mg tablet 12.5 mg PO BID #60 tab 11/06/20 05/12/21 Rx omeprazole 20 mg capsule,delayed 20 mg PO DAILY #30 cap 11/06/20 05/12/21 Rx release insulin glargine 100 unit/mL 16 unit SUBCUT QAM 01/05/21 05/12/21 History subcutaneous solution (Lantus U-100 Insulin) loperamide 2 mg capsule (Imodium 2 mg PO DIRECTED PRN 01/05/21 05/12/21 History A-D) HYDRAULIC KHADAR LIFT #1 ea 01/26/21 05/04/21 Rx FreeStyle Virgil 14 Day Sensor #6 ea NS 02/24/21 05/04/21 Rx (flash glucose sensor) FreeStyle Virgil 14 Day Jewell #1 ea NS 03/08/21 05/04/21 Rx (flash glucose scanning reader) nystatin 100,000 unit/gram topical 1 applic TOPICAL BID PRN 04/04/21 05/12/21 History powder sevelamer carbonate 800 mg tablet 2,400 mg PO TIDM 04/04/21 05/12/21 History buspirone 10 mg tablet 10 mg PO BID 05/09/21 05/12/21 History ciprofloxacin HCl 500 mg tablet 500 mg PO DAILY 13 Days #13 tab 05/09/21 05/12/21 Rx escitalopram oxalate 10 mg tablet 10 mg PO QAM 05/09/21 05/12/21 History losartan 50 mg tablet 50 mg PO HS 05/09/21 05/12/21 History sulfamethoxazole 800 1 tab PO DAILY 13 Days #13 tab 05/09/21 05/12/21 Rx mg-trimethoprim 160 mg tablet (Bactrim DS) simvastatin 20 mg tablet 20 mg PO HS 05/12/21 05/12/21 History Patient History Medical History Acute hyperkalemia Anemia in chronic kidney disease Anxiety Aspiration into lower respiratory tract Cellulitis of leg, right Dyslipidemia Dysphagia Excessive cerumen in both ear canals GERD (gastroesophageal reflux disease) Left lower lobe pneumonia LLL pneumonia Missed dialysis Obstructive sleep apnea [id number] On home oxygen therapy 2L n/c with cpap at Osteoarthritis Peripheral arterial disease Peripheral neuropathy bilt legs/feet Pleural effusion, left Secondary hyperparathyroidism of renal origin Sepsis Surgical History History of bilateral cataract extraction History of cardiac cath 01/2018 "about 2-3 weeks"; no stents placed @ [facility] by Dr. Coronel History of carpal tunnel release R wrist History of colonoscopy History of repair of anterior cruciate ligament of left knee History of repair of anterior cruciate ligament of right knee History of tonsillectomy History of tooth extraction wisdom teeth Family History Mother Family history of diabetes mellitus Grandmother Family history of diabetes mellitus maternal Other Colorectal cancer Inflammatory bowel disease Melanoma Social History Smoking Status: Current every day smoker Tobacco Type: Cigarettes Age Started Using Tobacco: 15; Cigarettes Per Day: 15 a day; Second Hand Exposure: Yes; Hx Alcohol Use: No Hx Substance Use: No Preferred Language: Lithuanian Communication Ability: Effective 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: No Beliefs That Will Affect Care: None marital status: Single Current Living Situation: Alone Current Living Situation Comment: [facility] current occupational status: retired How many Children do You have: 2 Feels Safe at Home: Yes Safety Concerns: Feels Safe At This Time Seatbelt Use: always Assistive Devices: CPAP Review of Systems Review of Systems: All systems reviewed & are unremarkable except as noted in HPI & below Physical Exam Constitutional: WD/WN, vitals as above + obese, cooperative and comfortable; not in distress Neck: trachea midline Respiratory: normal respiratory effort, lungs clear to auscultation Auscultation: + diminished lung sounds Cardiovascular: Rate/Rhythm: regular rate and regular rhythm Vessels: femoral pulses present, posterior tibial pulses present (nonpalpable BLE), dorsalis pedis pulses present (nonpalpable BLE) and radial pulses present; + abnormal peripheral pulses Extremities: + abnormal capillary refill (L 2&3 toes dry eschar at tip, other toes normal. ) Gastrointestinal (Abdomen): Inspection/Auscultation: abdomen normal to inspection and normal bowel sounds Percussion/Palpation: abdomen soft; abdom en nontender Skin: + eschar (L2&3 toes, dry, +local edema, blisters, mild erythema.) Neurologic: moves all extremities and awake; no focal motor deficits and not confused (but pt is very poor historian) Psychiatric: A+Ox3, euthymic affect Results & Data ([facility]) Vital Signs (Past 12 Hours) Vital Signs Temp Pulse Pulse Resp BP BP Pulse Ox 05/14/21 13:00 56 L 120/62 05/14/21 12:40 65 133/59 L 05/14/21 12:20 56 L 133/56 L 05/14/21 12:00 53 L 110/56 L 05/14/21 11:34 53 L 114/70 05/14/21 11:28 36.6 C 57 L 05/14/21 08:58 36.8 C 103 H 20 139/75 96 05/14/21 07:41 70 20 96 05/14/21 03:43 71 15 148/68 H 97 05/14/21 02:00 Pulse Ox 05/14/21 13:00 05/14/21 12:40 05/14/21 12:20 05/14/21 12:00 05/14/21 11:34 05/14/21 11:28 05/14/21 08:58 05/14/21 07:41 05/14/21 03:43 05/14/21 02:00 97
--- NOTE | 2021-05-14 13:51 | Progress Notes ---
DATE OF SERVICE: 05/14/2021. Patient is seen in dialysis. Seen with Kelsy Pradhan from Vascular Surgery. They are going to get a CT angiogram. Possible concern regarding emboli. The tips of the toes third more so than the sec ond are black and ischemic. There is old blistering and skin slough extending on to the dorsum of moriah th digits to about the PIP joint. There is no purulence or drainage. There is now a blister on the plantar aspect of the second metatarsophalangeal area and on the lateral side of the big toe. Plan i s to get him some waffle boots to protect his foot. Evaluate his vascular status and intervene accor dingly. Subsequently, I think we should wait a little bit to see what declares here in terms of embo li ischemia prior to definitive surgical management. He is likely going to need at least amputations of the second and third toes and possibly more if things evolve differently. We will continue to mo nitor him, but at this time, I do not forsee any surgery until sometime next week. Job ID: [id number]
--- NOTE | 2021-05-14 15:25 | Hospitalist Progress Note ---
Date of Service May 14, 2021 Assessment & Plan (1) Gangrenous toe: Plan: Several toes with gangrene, abscess, on left foot Recently had arterial Dopplers of the bilateral lower extremities which were without significant arterial stenoses ABIs here normal but maybe falsely high CT foot and x-rays without evidence of osteomyelitis Diabetic foot infection Appreciate Vascular consult-needs CT aorta with runoff and ECHO to eval for embolic source Appreciate Ortho consult-continue abx and likely needs amputation of toes next week Wound cx with corynebacterium but this is only a surface culture BCxs-NGTD -Continue broad spectrum IV antibiotics in the form of Zosyn and daptomycin -Wound care consultation appreciated-pain with betadine and place 2x2 between toes -check ECHO -check CT aorta w/ runoff (2) Wound of left foot: Plan: As above diabetic foot ulcer (3) End-stage renal disease (ESRD): Plan: Dialysis dependant renal failure - dialysis fistula with good thrill and bruit - Nephrology consulted for dialysis in house -Plan for dialysis T//TUE Follow BMP, CBC -Continue sevelamer (4) Idiopathic polyneuropathy: Plan: Continue gabapentin which is renally dosed (5) GERD (gastroesophageal reflux disease): Plan: Continue PPI (6) Peripheral arterial disease: Plan: Angioplasty of the posterior tibial artery on the right done 2020 secondary to poor healing heel ulcer -As above with recent arterial Dopplers without significant stenoses Continue aspirin, statin (7) Current smoker: Plan: Not interested in quitting - Nicotine patch -add nicotine lozenges as continues to have cravings making him want to leave the hospital (8) On home oxygen therapy: Plan: Via his CPAP machine 2L oxygen bled in (9) Anemia in chronic kidney disease: Plan: Stable, hemoglobin 11 (10) Pleural effusion, left: Plan: Chronic- likely secondary to ESRD (11) Depression: Plan: Continue escitalopram (12) Hypothyroidism: Plan: Continue Synthroid 125 mcg Recent TSH mildly elevated at 5 Follow as an outpatient (13) Obstructive sleep apnea: Plan: CPAP at night- AutoPAP or CPAP of 7 (14) Morbid obesity with BMI of 40.0-44.9, adult: Plan: BMI 43.6 Needs weight loss (15) Diabetes mellitus: Plan: Met with informatics educator who discovered that the patient actually only takes Lantus 10 units twice daily at home for blood sugar greater than 110, and 5 units if blood glucose less than 130 Discontinue Lantus 16 units and transition to Lantus 5 units twice daily for now Continue NovoLog sliding scale Hemoglobin A1c last checked was 6.9% in 11/2020 but this is likely inaccurate due to pain a dialysis patient and with anemia ADA diet, Accu-Cheks before meals and at bedtime (16) Hypertension: Plan: Blood pressures are controlled Continue home amlodipine 10 mg daily, carvedilol 12.5 mg p.o. twice daily, furosemide 80 mg p.o. twice daily, losartan 50 mg p.o. at bedtime Plan: DVT prophylaxis Heparin SQ Disposition-continued stay Admission and Anticipated Discharge Date Admission Date: May 12, 2021 Subjective Pt at HD when I saw him. Denies pain. Has his usual SOB. Is lying flat. Is craving cigarettes despite his patch and had to be convinced to stay in the hospital for further treatment. He understands he is likely to need amputation of the toes. Review of Systems Review of Systems: All systems reviewed & are unremarkable except as noted in HPI & below Physical Exam Physical Exam: PHYSICAL EXAM: General: awake, alert, no apparent distress, morbidly obese Head: Normocephalic, atraumatic ENT: EOMI, anicteric sclerae Neuro: AAO x 3, clear and appropriate Chest: equal rise and fall of the chest, no accessory muscle use, diminished in the bases bilaterally secondary to body habitus Cardiac: Regular rate and rhythm, peripheral pulses palpable, no murmur, trace pitting edema in the feet bilaterally GI: NABS x 4 quadrants, soft, nontender to palpation, no rebound, guarding or tenderness Extremities: Left foot - pulses barely palpable b/l, cap refill <2 seconds left foot. Gangrene distal tips of digits 2 and 3 with fluctuance and bullae on plantar surface of third toe, ulceration present on tops of these two toes with associated swelling, erythema, and drainage. Small amount of erythema on 4th toe. Lateral malleolus of ankle - ulcer present, no surrounding erythema. Psych: Normal mood and affect Results & Data Results & Data ([facility]) Vital Signs (Past 12 Hours) Vital Signs Temp Pulse Pulse Resp BP BP Pulse Ox 05/14/21 15:15 36.8 C 55 L 141/62 H 05/14/21 15:04 55 L 108/52 L 05/14/21 14:40 54 L 140/68 05/14/21 14:20 55 L 133/63 05/14/21 14:00 58 L 145/64 H 05/14/21 13:40 55 L 133/63 05/14/21 13:20 56 L 123/62 05/14/21 13:00 56 L 120/62 05/14/21 12:40 65 133/59 L 05/14/21 12:20 56 L 133/56 L 05/14/21 12:00 53 L 110/56 L 05/14/21 11:34 53 L 114/70 05/14/21 11:28 36.6 C 57 L 05/14/21 08:58 36.8 C 103 H 20 139/75 96 05/14/21 07:41 70 20 96 05/14/21 03:43 71 15 148/68 H 97 Laboratory Results 05/14/21 05/14/21 05/14/21 Range/Units 08:39 05:24 05:24 WBC 8.92 (4.8-10.8) K/uL RBC 3.60 L (4.7-6.1) M/uL Hgb 11.8 L (14.0-18.0) g/dL Hct 36.0 L (42-52) % MCV 100.0 (80-100) fL MCH 32.8 (25-34) pg MCHC 32.8 (32-36) g/dL RDW Std Deviation 48.2 H (36.4-46.3) fL RDW Coeff of Jorge A 13.2 (11.5-14.5) % Plt Count 229 (130-400) K/uL MPV 10.1 (7.4-10.4) fL Immature Gran % (Auto) 0.3 % Neut % (Auto) 60.0 % Lymph % (Auto) 28.0 % [place] % (Auto) 7.5 % Eos % (Auto) 3.8 % Baso % (Auto) 0.4 % Neut # (Auto) 5.34 (1.4-6.5) K/uL Lymph # (Auto) 2.50 (1.2-3.4) K/uL [place] # (Auto) 0.67 H (0.11-0.59) K/uL Eos # (Auto) 0.34 (0-0.5) K/uL Baso # (Auto) 0.04 (0-0.2) K/uL Immature Gran # (Auto) 0.03 H (0.00-0.02) K/uL Sodium 136 (136-145) mmol/L Potassium 5.2 H (3.5-5.1) mmol/L Chloride 94 L (98-107) mmol/L Carbon Dioxide 28 (21-32) mmol/L Anion Gap 14 H (3-11) BUN 63 H D (6-23) mg/dl Creatinine 9.32 H* D (0.6-1.4) mg/dl Est Cr Clr Drug Dosing 10.7 ml/min Est GFR ( Amer) 6.1 ml/min Est GFR (Non-Af Amer) 5.3 ml/min BUN/Creatinine Ratio 6.8 L (10-20) Glucose 114 H (70-99(Fasting)) mg/dl POC Glucose 142 H (70-99) mg/dl Calcium 9.4 (8.5-10.1) mg/dl Magnesium 2.3 (1.7-2.4) mg/dl 05/13/21 05/13/21 Range/Units 22:21 18:32 WBC (4.8-10.8) K/uL RBC (4.7-6.1) M/uL Hgb (14.0-18.0) g/dL Hct (42-52) % MCV (80-100) fL MCH (25-34) pg MCHC (32-36) g/dL RDW Std Deviation (36.4-46.3) fL RDW Coeff of Jorge A (11.5-14.5) % Plt Count (130-400) K/uL MPV (7.4-10.4) fL Immature Gran % (Auto) % Neut % (Auto) % Lymph % (Auto) % [place] % (Auto) % Eos % (Auto) % Baso % (Auto) % Neut # (Auto) (1.4-6.5) K/uL Lymph # (Auto) (1.2-3.4) K/uL [place] # (Auto) (0.11-0.59) K/uL Eos # (Auto) (0-0.5) K/uL Baso # (Auto) (0-0.2) K/uL Immature Gran # (Auto) (0.00-0.02) K/uL Sodium (136-145) mmol/L Potassium (3.5-5.1) mmol/L Chloride (98-107) mmol/L Carbon Dioxide (21-32) mmol/L Anion Gap (3-11) BUN (6-23) mg/dl Creatinine (0.6-1.4) mg/dl Est Cr Clr Drug Dosing ml/min Est GFR ( Amer) ml/min Est GFR (Non-Af Amer) ml/min BUN/Creatinine Ratio (10-20) Glucose (70-99(Fasting)) mg/dl POC Glucose 101 H 135 H (70-99) mg/dl Calcium (8.5-10.1) mg/dl Magnesium (1.7-2.4) mg/dl PG Care Time/CCT Total # of Minutes Spent Total Time Spent with Patient: Total time spent is greater than 50% in coordination of care (as documented) at patient's floor/unit and/or counseling patient: Coding Level of Care Code 60601 Subseq Hosp Care Lvl 2 Diagnoses Gangrenous toe I96 Wound of left foot S91.302A End-stage renal disease (ESRD) N18.6 Idiopathic polyneuropathy G60.9 GERD (gastroesophageal reflux disease) K21.9 Peripheral arterial disease I73.9 Current smoker F17.200 On home oxygen therapy Z99.81 Anemia in chronic kidney disease N18.6; D63.1; Z99.2 Chronic kidney disease stage: on chronic dialysis Pleural effusion, left J90 Depression F32.9 Depression Type: unspecified Hypothyroidism E03.9 Hypothyroidism type: unspecified Obstructive sleep apnea G47.33 Morbid obesity with BMI of 40.0-44.9, adult E66.01; Z68.41 Diabetes mellitus E11.69; Z79.4 Diabetes mellitus complication status: with other specified complication Diabetes mellitus long term acute care registered nurse insulin use: with long term acute care registered nurse use Diabetes mellitus type: type 2 Hypertension I10 Hypertension type: essential hypertension (1) Anemia in chronic kidney disease Chronic kidney disease stage: on chronic dialysis Qualified Code(s): N18.6 - End stage renal disease; D63.1 - Anemia in chronic kidney disease; Z99.2 - Dependence on renal dialysis (2) Depression Depression Type: unspecified Qualified Code(s): F32.9 - Major depressive disorder, single episode, unspecified (3) Hypothyroidism Hypothyroidism type: unspecified Qualified Code(s): E03.9 - Hypothyroidism, unspecified (4) Diabetes mellitus Diabetes mellitus complication status: with other specified complication Diabetes mellitus correction insulin use: with correction use Diabetes mellitus type: type 2 Qualified Code(s): E11.69 - Type 2 diabetes mellitus with other specified complication; Z79.4 - correction (current) use of insulin (5) Hypertension Hypertension type: essential hypertension Qualified Code(s): I10 - Essential (primary) hypertension
--- NOTE | 2021-05-14 15:48 | Nephrology Progress Note ---
Date of Service May 14, 2021 Assessment & Plan (1) ESRD on hemodialysis: Plan: ESRD on HD TTS. Orders for HD today were entered into the EHR and reviewed with the HD nurse. UF goal at least 3 L as tolerated. AVF with good thrill and bruit. AVF has been functioning well for treatment. Treatment time abridged while inpatient. Repeat H/H and metabolic profile in AM. Medications are appropriately dosed for kidney dysfunction. Renal diet with daily 1 L fluid restriction. (2) Gangrenous toe: Plan: Antibiotic therapy dosed for IHD. (3) Anemia in chronic kidney disease: Plan: Repeat H/H in AM. Maintained on Micera as outpatient. Chronic, stable. Admission and Anticipated Discharge Date Admission Date: May 12, 2021 Subjective No acute events overnight. No complaints this AM (except for urge to smoke). Sebastián was seen and evaluated in the ER this morning. He denied pain. No fevers or chills. Review of Systems Review of Systems: All systems reviewed & are unremarkable except as noted in HPI & below Physical Exam Constitutional: well developed and + morbidly obese; no acute distress Eyes: no scleral abnormality and no corneal abnormality ENMT: Mouth: no oral mucosal abnormality and oral mucous membranes not dry Neck: normal visual inspection and trachea midline Respiratory: normal respiratory effort Auscultation: lungs clear to auscultation bilaterally Cardiovascular: Rate/Rhythm: regular rate Heart Sounds: normal S1 and normal S2 Extremities: + edema (predominately in abdomen with trace to 1+ BL LE) and + AV fistula Musculoskeletal: Extremities: no cyanosis and no clubbing Skin: normal turgor; no lesions Neurologic: Motor/Sensory: no tremor and no asterixis Psychiatric: Orientation: alert and oriented x 3 Results & Data ([facility]) Vital Signs (Past 12 Hours) Vital Signs Temp Pulse Pulse Resp BP BP Pulse Ox 05/14/21 15:33 68 18 148/67 H 96 05/14/21 15:15 36.8 C 55 L 141/62 H 05/14/21 15:04 55 L 108/52 L 05/14/21 14:40 54 L 140/68 05/14/21 14:20 55 L 133/63 05/14/21 14:00 58 L 145/64 H 05/14/21 13:40 55 L 133/63 05/14/21 13:20 56 L 123/62 05/14/21 13:00 56 L 120/62 05/14/21 12:40 65 133/59 L 05/14/21 12:20 56 L 133/56 L 05/14/21 12:00 53 L 110/56 L 05/14/21 11:34 53 L 114/70 05/14/21 11:28 36.6 C 57 L 05/14/21 08:58 36.8 C 103 H 20 139/75 96 05/14/21 07:41 70 20 96 Laboratory Results Laboratory Results - last 24 hr 05/13/21 05/13/21 05/14/21 18:32 22:21 05:24 WBC 8.92 RBC 3.60 L Hgb 11.8 L Hct 36.0 L MCV 100.0 MCH 32.8 MCHC 32.8 RDW Std Deviation 48.2 H RDW Coeff of Jorge A 13.2 Plt Count 229 MPV 10.1 Immature Gran % (Auto) 0.3 Neut % (Auto) 60.0 Lymph % (Auto) 28.0 [place] % (Auto) 7.5 Eos % (Auto) 3.8 Baso % (Auto) 0.4 Neut # (Auto) 5.34 Lymph # (Auto) 2.50 [place] # (Auto) 0.67 H Eos # (Auto) 0.34 Baso # (Auto) 0.04 Immature Gran # (Auto) 0.03 H Sodium Potassium Chloride Carbon Dioxide Anion Gap BUN Creatinine Est Cr Clr Drug Dosing Est GFR ( Amer) Est GFR (Non-Af Amer) BUN/Creatinine Ratio Glucose POC Glucose 135 H 101 H Calcium Magnesium 05/14/21 05/14/21 05:24 08:39 WBC RBC Hgb Hct MCV MCH MCHC RDW Std Deviation RDW Coeff of Jorge A Plt Count MPV Immature Gran % (Auto) Neut % (Auto) Lymph % (Auto) [place] % (Auto) Eos % (Auto) Baso % (Auto) Neut # (Auto) Lymph # (Auto) [place] # (Auto) Eos # (Auto) Baso # (Auto) Immature Gran # (Auto) Sodium 136 Potassium 5.2 H Chloride 94 L Carbon Dioxide 28 Anion Gap 14 H BUN 63 H D Creatinine 9.32 H* D Est Cr Clr Drug Dosing 10.7 Est GFR ( Amer) 6.1 Est GFR (Non-Af Amer) 5.3 BUN/Creatinine Ratio 6.8 L Glucose 114 H POC Glucose 142 H Calcium 9.4 Magnesium 2.3 PG Care Time/CCT Total # of Minutes Spent Total Time Spent with Patient: Total time spent is greater than 50% in coordination of care (as documented) at patient's floor/unit and/or counseling patient: Coding Level of Care Code 19792 Subseq Hosp Care Lvl 3 Diagnoses ESRD on hemodialysis N18.6; Z99.2 Gangrenous toe I96 Anemia in chronic kidney disease N18.6; D63.1; Z99.2 Chronic kidney disease stage: on chronic dialysis (1) Anemia in chronic kidney disease Chronic kidney disease stage: on chronic dialysis Qualified Code(s): N18.6 - End stage renal disease; D63.1 - Anemia in chronic kidney disease; Z99.2 - Dependence on renal dialysis
[2021-05-14] MEDS ORDERED: DAPTOmycin 375 MG in SYRINGE 0 ML IV SCH (16:00)
[2021-05-14] MEDS: NICOTINE POLACRILEX 2 MG GUM MT PRN ×2 (16:28→22:34)
[2021-05-14] MEDS ORDERED: OPTIRAY 320 125ml IV ONE (17:06)
--- NOTE | 2021-05-14 17:39 | CT Scan Report ---
CT angio chest wo/w con CLINICAL HISTORY: Evaluate for pulmonary artery and aortic embolization. Difficulty breathing COMPARISON STUDY: No previous studies for comparison. CT DOSE: 4862.19 mGy.cm TECHNIQUE: Standard CT angiogram of the Chest was performed without and with IV contrast. A dose lo wering technique was utilized adhering to the principles of ALARA. Contrast Volume: Optiray 320, 04/11/1999 ml FINDINGS: Vasculature: The aorta is normal in course and caliber. There is no evidence for aneurysm, dissection or leakage. There is homogeneous perfusion of the pulmonary vasculature bilaterally. No intraluminal filling defects or evidence for pulmonary embolus is seen. Airway: The airway is clear. No endobronchial lesion is identified. Lungs: Compared to the previous CT, stable alveolar opacities are again seen in the left lung base po steriorly, again most characteristic of rounded atelectasis. The lungs are otherwise clear of acute a lveolar opacities, air bronchograms or pulmonary nodules. Pleura: There is no evidence for pleural effusion. There is no evidence for pneumothorax. Mediastinum: There is no evidence for pathologic adenopathy. The heart size is within normal limits. The thoracic aorta is within normal limits. There is no evidence for pericardial effusion. Upper abdomen: The adrenal glands are normal bilaterally. Osseous structures: There is no acute osseous pathology. Impression: 1. Normal CTA of the aorta and pulmonary arteries. 2. Stable round atelectasis at the left lung base. 3. No acute chest disease. ACT 112: Negative or not required by law. Electronically signed by: Kody Bergeron M.D. 05/14/2021 5:38 PM
[2021-05-14] MEDS: ASPIRIN 81 MG ECTAB PO SCH (20:50)
[2021-05-14] MEDS: amLODIPine BESYLATE 5 MG TAB PO SCH (20:51)
--- NOTE | 2021-05-14 21:15 | CT Scan Report ---
CT ang LISSETTE arthur gelyrafat CLINICAL HISTORY: Evaluate for embolization . Reported discoloration of the toes. COMPARISON STUDY: No previous studies for comparison. CT DOSE: TECHNIQUE: Standard CT Angiogram of the aorta was performed with IV contrast followed by image post processing with coronal, and sagittal MIP reformats... This CT exam was performed using one or more of the following dose reduction techniques: Automated ex posure control, adjustment of the mA and/or kV according to patient size, or use of iterative reconst ruction technique. CONTRAST: Optiray 320, 118 mL nonionic intravenous contrast. VASCULAR FINDINGS: Abdominal aorta: patent without aneurysm or dissection. Mild atherosclerotic calcification is prese nt. Celiac trunk: patent without stenosis. Superior mesenteric artery: patent without stenosis. Right renal artery: patent without stenosis. Left renal artery: patent without stenosis. Inferior mesenteric artery: patent without stenosis. Right common iliac artery: patent without stenosis. Mild atherosclerotic calcification is present. Right internal iliac artery: patent without stenosis. Right external iliac artery: patent without stenosis. Right femoral artery: Patent with approximately 50% stenosis present due to atherosclerotic calcifica tion. Right superficial femoral artery: Patent with approximately 50% stenosis present due to atherosclerot ic calcification. Right popliteal artery: Patent with less than 50% stenosis present. Right calf arteries: There is significant narrowing of all of the arteries of the calf with no defini te sites of occlusion identified. The narrowing is greater on the right when compared to the left. Left common iliac artery: patent without stenosis. Mild atherosclerotic calcification is present. Left internal iliac artery: patent without stenosis. Left external iliac artery: patent without stenosis Left femoral artery: Patent with less than 50% narrowing. Left superficial femoral artery: Patent with approximately 50% narrowing with atherosclerotic calcifi cation. Left popliteal artery: Patent with less than 50% narrowing. Left calf arteries: There is also narrowing of the left calf arteries but to a lesser degree than on the right. Atherosclerotic calcification is present. NONVASCULAR FINDINGS: Lung base: The lung bases are clear. Abdominal cavity: There is no evidence for abdominal mass, adenopathy or ascites. Liver: There is homogeneous attenuation of the liver parenchyma. There is no evidence for enhancing m ass lesion. Spleen: There is homogeneous attenuation of the splenic parenchyma. There is no enhancing mass lesion . Pancreas: There is homogeneous attenuation of the pancreatic parenchyma. There is no evidence for mas s lesion or peripancreatic fluid collection. Gall Bladder: The gallbladder is well distended with no evidence for intraluminal calculi, wall thick ening or pericholecystic edema. Adrenal glands: The adrenal glands are normal in size and attenuation. There is no evidence for enhan cing mass lesion. Kidneys: There is homogeneous attenuation of the renal parenchyma bilaterally. There is no evidence f or renal calculus or hydronephrosis. There is no evidence for enhancing mass. Renal vascular calcific ations present. Bilateral renal cysts are present. Bowel: The bowel loops are normally placed within the abdomen and pelvis without evidence for dilatat ion or obstruction. There is no evidence for mass lesion. There are no inflammatory changes present. There is no evidence for free air. There is a normal appendix in the right lower quadrant. Bladder: The bladder is within normal limits with no evidence for focal mass, calculus or diverticulu m. : There is no evidence for pelvic mass or adenopathy. There is no evidence for pelvic ascites. Osseous structures: There is no acute osseous pathology. Degenerative changes are seen within the spi ne. IMPRESSION: 1. Atherosclerotic calcification of the arteries of both lower extremities, right greater than left p articularly involving the arteries of the calf. No focal sites of occlusion are identified. 2. Otherwise, no acute intra-abdominal or pelvic abnormality. 3. Nonacute findings are delineated above. ACT 112: Negative or not required by law. Electronically signed by: Kody Bergeron M.D. 05/14/2021 9:14 PM
[2021-05-14] MEDS: SIMVASTATIN 20 MG TAB PO SCH (22:35)
[2021-05-14] MEDS: LOSARTAN POTASSIUM 50 MG TAB PO SCH (22:35)
[2021-05-14] MEDS: GABAPENTIN 300 MG CAP PO SCH (22:35)
[2021-05-15] MEDS: NICOTINE POLACRILEX 2 MG GUM MT PRN (02:04)
[2021-05-15] MEDS: PIPERACILLIN/TAZOBACTAM 4.5 GM in DEXTROSE 5% 100 ML IV SCH ×2 (02:10→12:28)
[2021-05-15] MEDS: HEPARIN SOD 5,000 UNIT/0.5 ML VIAL SQ SCH ×2 (05:40→13:34)
[2021-05-15] MEDS: LEVOTHYROXINE SODIUM 125 MCG TABLET PO SCH (06:36)
[2021-05-15 08:03] LABS: Basophils # (auto) 0.05 K/uL (0-0.2); Basophils % (auto) 0.4 %; Eosinophils % (auto) 2.6 %; Hematocrit (blood only) 35.8 % (42-52); Hemoglobin 11.6 g/dL (14.0-18.0); Immature Granulocytes # (auto) 0.02 K/uL (0.00-0.02); Immature Granulocytes % (auto) 0.2 %; Lymphocytes # (auto) 1.92 K/uL (1.2-3.4); Lymphocytes % (auto) 16.6 %; Mean Corpuscular Hemoglobin 32.5 pg (25-34); Mean Corpuscular Hgb Conc 32.4 g/dL (32-36); Mean Corpuscular Volume 100.3 fL (80-100); Mean Platelet Volume 10.5 fL (7.4-10.4); Monocytes # (auto) 0.69 K/uL (0.11-0.59); Neutrophils % (auto) 74.2 %; Platelet Count 233 K/uL (130-400); RDW Coefficient of Variation 13.1 % (11.5-14.5); RDW Standard Deviation 47.7 fL (36.4-46.3); Red Blood Count 3.57 M/uL (4.7-6.1); White Blood Count 11.58 K/uL (4.8-10.8)
[2021-05-15] MEDS: SEVELAMER HCL 800 MG TABLET PO SCH ×3 (08:29→17:42)
[2021-05-15] MEDS: PANTOprazole 40 MG TAB PO SCH (08:30)
[2021-05-15] MEDS: NICOTINE 21 MG/24 HR TDSY TD SCH (08:30)
[2021-05-15] MEDS: ESCITALOPRAM OXALATE 10 MG TAB PO SCH (08:30)
[2021-05-15] MEDS: INSULIN ASPART PER UNIT SC SCH ×3 (08:31→17:32)
[2021-05-15 08:32] LABS: Albumin Globulin Ratio 1.1 (0.9-2); Albumin Level 3.8 gm/dl (3.4-5.0); BUN Creatinine Ratio 5.9 (10-20); Bilirubin,Total 0.5 mg/dl (0.2-1.0); Calcium 9.4 mg/dl (8.5-10.1); Creatinine Clr Calc Pharmacy 11.5 ml/min; Globulin 3.5 gm/dl (2.5-4.0); Magnesium 2.2 mg/dl (1.7-2.4); Potassium 4.9 mmol/L (3.5-5.1); Total Protein 7.3 gm/dl (6.0-8.3)
[2021-05-15] MEDS: INSULIN GLARGINE SOLOSTAR 100 UNITS/ML 3 ML PEN SQ SCH (08:33)
[2021-05-15] MEDS: FUROSEMIDE 80 MG TAB PO SCH (09:27)
[2021-05-15] MEDS: carvediloL 12.5 MG TAB PO SCH (09:27)
[2021-05-15] MEDS: busPIRone 5 MG TAB PO SCH (09:27)
--- NOTE | 2021-05-15 09:30 | Communication Note ---
Date of Service: May 15, 2021 Pt's [address]As reviewed by Dr Reynolds. The imaging demonstrates mild/moderate diffuse disease, no locations of ulcerated plaque or severe stenosis. No indications for vascular surgical intervention at this time. Recommend ortho proceed with surgery as scheduled. Will be happy to reeval pt if surgical wounds nonhealing. Please call if needed. Otherwise, pt is scheduled for annual vascular follow up in 12/2021.
--- NOTE | 2021-05-15 10:18 | Nephrology Progress Note ---
Date of Service May 15, 2021 Assessment & Plan (1) ESRD on hemodialysis: Plan: ESRD on HD TTS. Completed treatment yesterday without complications. Net UF 3 L. Outpatient Rx: 4hr 15min with a F-250NR, 3 K bath, EDW 121kg, access L upper arm AVF. AVF with good thrill and bruit. Adequate Qb yesterday. Treatment time abridged while inpatient. Repeat H/H and metabolic profile in AM. Medications are appropriately dosed for kidney dysfunction. Renal diet with daily 1 L fluid restriction. (2) Gangrenous toe: Plan: Vascular consultation and CTA reviewed this morning. No plan for vascular intervention. Dr. Vela planning surgery possibly next week. Remains on daptomycin and Zosyn. Medications are appropriately dosed for kidney dysfunction. (3) Anemia in chronic kidney disease: Plan: Repeat H/H in AM. Maintained on Micera as outpatient. Chronic, stable. Admission and Anticipated Discharge Date Admission Date: May 12, 2021 Subjective No acute events overnight. Denies pain. No fevers or chills. Tolerated HD well yesterday. Sebastián told me that he feels well and would really like to go home today. Review of Systems Review of Systems: All systems reviewed & are unremarkable except as noted in HPI & below Physical Exam Constitutional: well developed and + morbidly obese; no acute distress Eyes: PERRL, conjunctivae normal, anicteric sclerae no scleral abnormality and no corneal abnormality ENMT: Mouth: no oral mucosal abnormality and oral mucous membranes not dry Neck: normal visual inspection and trachea midline Respiratory: normal respiratory effort Auscultation: lungs clear to auscultation bilaterally and + rales Cardiovascular: Rate/Rhythm: regular rate Heart Sounds: normal S1 and normal S2 Extremities: + edema (predominately in abdomen with trace to 1+ BL LE) and + AV fistula Musculoskeletal: Extremities: no cyanosis and no clubbing Skin: normal turgor; no lesions Neurologic: Motor/Sensory: no tremor and no asterixis Psychiatric: Orientation: alert and oriented x 3 Results & Data ([facility]) Vital Signs (Past 12 Hours) Vital Signs Temp Pulse Pulse Pulse Resp BP Pulse Ox 05/15/21 08:02 67 05/15/21 07:57 36.8 C 62 16 161/72 H 92 05/15/21 04:06 79 05/15/21 04:00 36.6 C 60 18 162/72 H 98 05/15/21 03:17 65 22 92 05/15/21 00:10 36.7 C 64 18 135/71 92 05/14/21 22:30 80 22 96 Laboratory Results Laboratory Results - last 24 hr 05/14/21 05/14/21 05/14/21 16:10 18:28 20:13 WBC RBC Hgb Hct MCV MCH MCHC RDW Std Deviation RDW Coeff of Jorge A Plt Count MPV Immature Gran % (Auto) Neut % (Auto) Lymph % (Auto) [place] % (Auto) Eos % (Auto) Baso % (Auto) Neut # (Auto) Lymph # (Auto) [place] # (Auto) Eos # (Auto) Baso # (Auto) Immature Gran # (Auto) Sodium Potassium Chloride Carbon Dioxide Anion Gap BUN Creatinine Est Cr Clr Drug Dosing Est GFR ( Amer) Est GFR (Non-Af Amer) BUN/Creatinine Ratio Glucose POC Glucose 124 H 131 H 120 H Calcium Magnesium Total Bilirubin AST ALT Alkaline Phosphatase Total Protein Albumin Globulin Albumin/Globulin Ratio 05/15/21 05/15/21 05/15/21 07:12 07:12 07:25 WBC 11.58 H RBC 3.57 L Hgb 11.6 L Hct 35.8 L MCV 100.3 H MCH 32.5 MCHC 32.4 RDW Std Deviation 47.7 H RDW Coeff of Jorge A 13.1 Plt Count 233 MPV 10.5 H Immature Gran % (Auto) 0.2 Neut % (Auto) 74.2 Lymph % (Auto) 16.6 [place] % (Auto) 6.0 Eos % (Auto) 2.6 Baso % (Auto) 0.4 Neut # (Auto) 8.60 H Lymph # (Auto) 1.92 [place] # (Auto) 0.69 H Eos # (Auto) 0.30 Baso # (Auto) 0.05 Immature Gran # (Auto) 0.02 Sodium 134 L Potassium 4.9 Chloride 96 L Carbon Dioxide 26 Anion Gap 12 H BUN 49 H Creatinine 8.35 H* D Est Cr Clr Drug Dosing 11.5 Est GFR ( Amer) 7.0 Est GFR (Non-Af Amer) 6.0 BUN/Creatinine Ratio 5.9 L Glucose 123 H POC Glucose 136 H Calcium 9.4 Magnesium 2.2 Total Bilirubin 0.5 AST 13 ALT 11 Alkaline Phosphatase 60 Total Protein 7.3 Albumin 3.8 Globulin 3.5 Albumin/Globulin Ratio 1.1 PG Care Time/CCT Total # of Minutes Spent Total Time Spent with Patient: Total time spent is greater than 50% in coordination of care (as documented) at patient's floor/unit and/or counseling patient: Coding Level of Care Code 52797 Subseq Hosp Care Lvl 3 Diagnoses ESRD on hemodialysis N18.6; Z99.2 Gangrenous toe I96 Anemia in chronic kidney disease N18.6; D63.1; Z99.2 Chronic kidney disease stage: on chronic dialysis (1) Anemia in chronic kidney disease Chronic kidney disease stage: on chronic dialysis Qualified Code(s): N18.6 - End stage renal disease; D63.1 - Anemia in chronic kidney disease; Z99.2 - Dependence on renal dialysis
--- NOTE | 2021-05-15 14:57 | Orthopedic Progress Note ---
Date of Service May 15, 2021 Assessment & Plan (1) Gangrenous toe: Plan: Patient sleeping. No significant change from yesterday. Blister on the big toe and at the base of the second toe. There is some evolving ischemia on the dorsal aspect of the second and third toes. There is minimal erythema no drainage and minimal swelling. The tips of the toes remain black. At this time I would like to see how things progress and declare and this will take some time off for that to occur. I do not see need for immediate surgical intervention although I think that is likely he may require Some form of amputation to treat this problem. We appreciate the intervention of vascular surgery which is determined that that there is no source for embolization and no significant stenosis which requires treatment. There still may remain some small vessel disease which cannot be addressed. We will continue to monitor. It is conceivable to follow him up as an outpatient next week if his other medical conditions would allow discharge and outpatient treatment. When surgery is elected he would need to return as an inpatient. Admission and Anticipated Discharge Date Admission Date: May 12, 2021 Results & Data ([facility]) Vital Signs (Past 12 Hours) Vital Signs Temp Pulse Pulse Pulse Resp BP Pulse Ox 05/15/21 08:02 67 05/15/21 07:57 36.8 C 62 16 161/72 H 92 05/15/21 04:06 79 05/15/21 04:00 36.6 C 60 18 162/72 H 98 05/15/21 03:17 65 22 92
--- NOTE | 2021-05-15 17:23 | Discharge Summary ---
Date of Service May 15, 2021 Admission HPI Per Admitting Provider 65 YOM with past medical history of: Morbid obesity, ESRD on dialysis T//Tue, HTN, Hypothyroidism, JANET, Depression, AOCD, Nicotine dependance, diabetic neuropathy, PAD, GERD, idiopathic polyneuropathy. Patient was referred to the EMD today via EMS from his dialysis center for concerns of diabetic foot ulcer of his left toes. Patient states he originally ordered this last week while trying to slide himself up in bed and he can't feel it so didn't notice it. He was in the EMD on Tuesday for evaluation of these ulcerations, where he left without being admitted secondary to he wanted to "smoke and eat something". He was given Cipro and Bactrim. In the EMD he had routine labs drawn including blood culture and gram stain from the left toes. He was started on Daptomycin. Hospitalist was notified for admission. Patient says he only wants to "stay overnight and go home in the morning", patient was instructed that oral antibiotics may not cover his wound until we get culture results, imaging to rule out infection of the bone, and cleaning/debridement of the wound may be needed. We discussed that noncompliance or leaving on the wrong antibiotics may lead to sepsis, toe or foot amputation at least and . The patient then agreed to stay and will likely need continued enforcement of this. He will be continued on Daptomycin add Zosyn, obtain CT scan of the foot evaluate for bone involvement, wound care consult and MATT of the left leg. Nephrology will be consulted to continue his dialysis while in patient. Principal Diagnosis Diabetic foot infection, gangrene of toes Discharge Exam PHYSICAL EXAM: General: awake, alert, no apparent distress, morbidly obese Head: Normocephalic, atraumatic ENT: EOMI, anicteric sclerae Neuro: AAO x 3, clear and appropriate Chest: equal rise and fall of the chest, no accessory muscle use, diminished in the bases bilaterally secondary to body habitus Cardiac: Regular rate and rhythm, peripheral pulses palpable, no murmur, trace pitting edema in the feet bilaterally GI: NABS x 4 quadrants, soft, nontender to palpation, no rebound, guarding or tenderness Extremities: Left foot - pulses barely palpable b/l, cap refill <2 seconds left foot. Gangrene distal tips of digits 2 and 3 with fluctuance and bullae on plantar surface of third toe, ulceration present on tops of these two toes with associated swelling, but no erythema, and no drainage. no further erythema on 4th toe. Lateral malleolus of ankle - ulcer present, no surrounding erythema. Psych: Normal mood and affect Discharge Data Allergies Allergy/AdvReac Type Severity Reaction Status Date / Time lactose Allergy Intermediate Gastrointestinal Verified 05/12/21 15:53 Upset No Known Drug Allergies Allergy NKDA Verified 05/12/21 15:53 Consultations 05/12/21 17:44 ED Decision to Admit Stat 05/12/21 22:06 Consult Nephrology Routine 05/13/21 10:14 Consult Orthopedic Surgery Routine 05/13/21 18:28 Consult Vascular Surgery Routine Ordered Studies 05/12/21 15:53 CT head/brain wo con Stat 05/12/21 19:33 CT foot LT wo con Routine 05/12/21 22:06 US ankle/brachial index ltd Routine 05/14/21 13:42 CT ang AA runof w inc wo ifdon Routine CT angio chest wo/w con Routine Hospital Course (1) Gangrenous toe: Several toes with gangrene, ? abscess, on left foot Recently had arterial Dopplers of the bilateral lower extremities which were without significant arterial stenoses ABIs here normal but maybe falsely high CT foot and x-rays without evidence of osteomyelitis Diabetic foot infection w/ gangrene Appreciate Vascular consult-recommended CT aorta with runoff and ECHO to eval for embolic source-no significant stenoses or thrombus on ECHO Appreciate Ortho consult-continue abx but convert to po and ok to discharge home with close outpatient f/u in Ortho office. Toes need more time to demarcate prior to amputation -likely needs amputation of toes next week Wound cx with corynebacterium but this is only a surface culture BCxs-NGTD No fevers, no spreading erythema and no systemic symptoms, feels well -received Zosyn and daptomycin here and will dc to home on Bactrim and Cipro as before -Wound care consultation appreciated-pain with betadine and place 2x2 between toes -f.u with Ortho planned for next week (2) Wound of left foot: As above diabetic foot ulcer (3) End-stage renal disease (ESRD): Dialysis dependant renal failure - dialysis fistula with good thrill and bruit - Nephrology consulted for dialysis in house -Plan for dialysis T//TUE -Continue sevelamer (4) Idiopathic polyneuropathy: Continue gabapentin which is renally dosed (5) GERD (gastroesophageal reflux disease): Continue PPI (6) Peripheral arterial disease: Angioplasty of the posterior tibial artery on the right done 2020 se condary to poor healing heel ulcer -As above with recent arterial Dopplers without significant stenoses Continue aspirin, statin (7) Current smoker: Not interested in quitting - Nicotine patch given here (8) On home oxygen therapy: Via his CPAP machine 2L oxygen bled in (9) Anemia in chronic kidney disease: Stable, hemoglobin 11 (10) Pleural effusion, left: Chronic- likely secondary to ESRD (11) Depression: Continue escitalopram (12) Hypothyroidism: Continue Synthroid 125 mcg Recent TSH mildly elevated at 5 Follow as an outpatient (13) Obstructive sleep apnea: CPAP at night- AutoPAP or CPAP of 7 (14) Morbid obesity with BMI of 40.0-44.9, adult: BMI 43.6 Needs weight loss (15) Diabetes mellitus: Met with patient educator who discovered that the patient actually only takes Lantus 10 units twice daily at home for blood sugar greater than 110, and 5 units if blood glucose less than 130 continue home insulin regimen on discharge Hemoglobin A1c last checked was 6.9% in 11/2020 but this is likely inaccurate due to pain a dialysis patient and with anemia (16) Hypertension: Blood pressures are controlled Continue home amlodipine 10 mg daily, carvedilol 12.5 mg p.o. twice daily, furosemide 80 mg p.o. twice daily, losartan 50 mg p.o. at bedtime DVT prophylaxis Heparin SQ Disposition-dc to home with home health Total Time Total Time Spent Total Time Spent (In Minutes): 45 min Discharge Plan Discharge Items Patient Disposition: Home - Home Health Services Reason For Visit: ULCERATION TO LEFT TOE Discharge Diagnosis: Left foot diabetic infection Condition on Discharge: Fair Activity: Resume your previous activity Non-emergency contact: Primary Care Provider and Surgeon Call non-emergency contact if: you have any medication questions, your symptoms worsen and you have a fever Follow-up/Referrals: Veto Gan DO [Primary Care Provider] - (Follow up within 1-2 weeks) Demetrius Vela MD [Surgeon] - (Please call for a follow up appointment for next Tuesday or Tuesday) Diet: Carb Consistent or DM2 and Dialysis Renal Addtl Attending Provider Instructions: Please continue taking the antibiotics as prescribed. You should paint your infected toes with iodine every day. If any redness develops and is spreading, or if you have a fever, please return to the hospital right away. Follow up with the Orthopedic Surgeon, Dr. Vela, next week either on Tuesday or Tuesday. You will need to call his office to schedule an appointment. Please show up to dialysis tomorrow at your usual time. Pending Studies at Discharge: Yes (Blood culture) Stand-Alone Forms: My [facility] [employer], Smoking Cessation Medications and DC Order Prescriptions: Continued amlodipine 10 mg tablet 10 mg PO HS Qty: 90 RF: 3 aspirin 81 mg tablet,chewable 81 mg PO HS Qty: 90 RF: 3 furosemide [Lasix] 80 mg tablet 80 mg PO BID Qty: 180 RF: 3 gabapentin 100 mg capsule 300 mg PO HS Qty: 270 RF: 3 levothyroxine 125 mcg tablet 125 mcg PO DAILYBB Qty: 90 RF: 3 omeprazole 20 mg capsule,delayed release(DR/EC) 20 mg PO DAILY Qty: 30 RF: 11 carvedilol 12.5 mg tablet 12.5 mg PO BID Qty: 60 RF: 11 (DME) HYDRAULIC KHADAR LIFT See Rx Instructions .Route .MEDSUPPLY Qty: 1 RF: 0 (DME) FreeStyle Virgil 14 Day Sensor Kit See Dose Instructions .ROUTE .MEDSUPPLY Qty: 6 RF: 3 (DME) FreeStyle Virgil 14 Day [place] Misc See Rx Instructions .ROUTE .MEDSUPPLY Qty: 1 RF: 5 nitroglycerin 0.4 mg tablet, sublingual 0.4 mg sublingual DIRECTED PRN (Reason: Chest Pain) RF: 0 Lantus U-100 Insulin 100 unit/mL Solution See Rx Instructions .ROUTE .COMPLEX RF: 0 loperamide [Imodium A-D] 2 mg capsule 2 mg PO DIRECTED PRN (Reason: loose stool) RF: 0 simvastatin 20 mg tablet 20 mg PO HS RF: 0 nystatin 100,000 unit/gram powder 1 applic topical BID PRN (Reason: irritation) RF: 0 sevelamer carbonate 800 mg tablet 2,400 mg PO TIDM RF: 0 losartan 50 mg tablet 50 mg PO HS RF: 0 buspirone 10 mg tablet 10 mg PO BID RF: 0 escitalopram oxalate 10 mg tablet 10 mg PO QAM RF: 0 Discharge Orders: Discharge Order (Routine); Ordered 05/15/21 Ordered By: Ann Leone Admission Data Admit Date/Time: 05/12/21 19:41 Attending Provider: Ann Leone Admit Provider: Perez Burkett Primary Care Provider: Veto Gan Other Providers: Perez Burkett ; Audi Francis ; [facility] ; Demetrius Vela ; Clark Reynolds ; [facility] Other Interventions: Discharge Summary Assessment (RN) Last Done: 05/15/21 18:03 Coding Level of Care Code D/C DAY MANAGEMENT >30 MINS Diagnoses Gangrenous toe I96 Wound of left foot S91.302A End-stage renal disease (ESRD) N18.6 Idiopathic polyneuropathy G60.9 GERD (gastroesophageal reflux disease) K21.9 Peripheral arterial disease I73.9 Current smoker F17.200 On home oxygen therapy Z99.81 Anemia in chronic kidney disease N18.6; D63.1; Z99.2 Chronic kidney disease stage: on chronic dialysis Pleural effusion, left J90 Depression F32.9 Depression Type: unspecified Hypothyroidism E03.9 Hypothyroidism type: unspecified Obstructive sleep apnea G47.33 Morbid obesity with BMI of 40.0-44.9, adult E66.01; Z68.41 Diabetes mellitus E11.69; Z79.4 Diabetes mellitus complication status: with other specified complication 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
--- NOTE | 2021-05-15 18:51 | XCELERA ---
[id number]
== END 2021-05-15 20:01 | disposition home health service (06) | DRG 299 ==
LOC: ED 14:20 → EDINP 19:41 → SUATTDRO 19:41 → EDINP 22:16 → 2N 05-14 19:38
DX: I70.262 Atherosclerosis of native arteries of extremities with gangrene, left leg; E11.52 Type 2 diabetes mellitus with diabetic peripheral angiopathy with gangrene; Z83.3 Family history of diabetes mellitus; E03.9 Hypothyroidism, unspecified; D63.1 Anemia in chronic kidney disease; E66.01 Morbid (severe) obesity due to excess calories; N18.6 End stage renal disease; J21.9 Acute bronchiolitis, unspecified; E11.621 Type 2 diabetes mellitus with foot ulcer; J90 Pleural effusion, not elsewhere classified; I12.0 Hypertensive chronic kidney disease with stage 5 chronic kidney disease or end stage renal disease; L97.528 Non-pressure chronic ulcer of other part of left foot with other specified severity; G60.9 Hereditary and idiopathic neuropathy, unspecified; Z88.8 Allergy status to other drugs, medicaments and biological substances; F32.A Depression, unspecified; Z68.41 Body mass index [BMI] 40.0-44.9, adult; F17.210 Nicotine dependence, cigarettes, uncomplicated; E11.22 Type 2 diabetes mellitus with diabetic chronic kidney disease; Z79.4 Long term (current) use of insulin; Z99.81 Dependence on supplemental oxygen; L02.612 Cutaneous abscess of left foot

== ENCOUNTER 2021-06-16 13:04 | Observation (INO) ==
--- NOTE | 2021-06-12 11:22 | Anesthesiology Consultation ---
Date of Service June 12, 2021 Assessment & Plan (1) Encounter for pre-operative examination: Chart Review Chart Review: Patient NOT seen in Pre Admission Testing Consults Requested none Additional Notes Patient is a , , tuesday dialysis patient and is scheduled for surgery on Tuesday. Ideally surgery should be performed on a different day since he will be without dialysis more than two days. Patient will require a PRP the morning of surgery and if the surgeons office cannot change the scheduled day of surgery than the patient will need to be evaluated the DOS by attending anesthesiologist to determine if patient is appropriate to proceed. History Surgery Operation Date: 06/16/21 14:50 Proposed Procedures p Left Foot 2nd and 3rd Toe Amputation - Demetrius Vela MD Height/Weight Height: 5 ft 11 in Weight: 136.078 kg Allergies Allergy/AdvReac Type Severity Reaction Status Date / Time lactose Allergy Intermediate Gastrointestinal Verified 06/10/21 15:37 Upset No Known Drug Allergies Allergy NKDA Verified 06/10/21 15:37 Medications Home Medications Medication Instructions Recorded Confirmed Last Taken amlodipine 10 mg tablet 10 mg PO HS #90 tab 06/26/20 06/11/21 01/04/21 aspirin 81 mg chewable tablet 81 mg PO HS #90 tab 06/26/20 06/11/21 01/04/21 gabapentin 100 mg capsule 300 mg PO HS #270 cap 06/26/20 06/11/21 01/04/21 nitroglycerin 0.4 mg sublingual 0.4 mg SUBLINGUAL DIRECTED PRN 07/11/20 06/11/21 Unknown tablet insulin glargine 100 unit/mL See Rx Instructions .ROUTE .COMPLEX 01/05/21 06/11/21 01/05/21 subcutaneous solution (Lantus U-100 Insulin) loperamide 2 mg capsule (Imodium 2 mg PO DIRECTED PRN 01/05/21 06/11/21 Unknown A-D) HYDRAULIC KHADAR LIFT #1 ea 01/26/21 06/08/21 Unknown FreeStyle Virgil 14 Day Sensor #6 ea NS 02/24/21 06/08/21 Unknown (flash glucose sensor) FreeStyle Virgil 14 Day [place] #1 ea NS 03/08/21 06/08/21 Unknown (flash glucose scanning reader) nystatin 100,000 unit/gram topical 1 applic TOPICAL BID PRN 04/04/21 06/11/21 Unknown powder sevelamer carbonate 800 mg tablet 2,400 mg PO TIDM 04/04/21 06/08/21 Unknown buspirone 10 mg tablet 10 mg PO BID 05/09/21 06/11/21 Unknown escitalopram oxalate 10 mg tablet 10 mg PO QAM 05/09/21 06/11/21 Unknown losartan 50 mg tablet 50 mg PO QAM 05/09/21 06/11/21 Unknown simvastatin 20 mg tablet 20 mg PO HS 05/12/21 06/11/21 Unknown collagenase clostridium histo. 250 1 applic TOPICAL DAILY 14 Days #30 05/22/21 06/11/21 Unknown unit/gram topical ointment (Santyl) g furosemide 80 mg tablet (Lasix) 80 mg PO BID #180 tab 06/08/21 06/11/21 Unknown carvedilol 12.5 mg tablet 6.25 mg PO BID 06/11/21 06/11/21 Unknown levothyroxine 125 mcg tablet 125 mcg PO QAM 06/11/21 06/11/21 Unknown omeprazole 20 mg capsule,delayed 20 mg PO QAM 06/11/21 06/11/21 Unknown release Past Medical History Medical History Anemia in chronic kidney disease Anxiety Bedbound Depression DM type 2 (diabetes mellitus, type 2) Dyslipidemia Dysphagia ESRD (end stage renal disease) on dialysis started in 2019 - , , Sat - [facility] in [place]. 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 recommends 5xwk but pt refuses) Fistula LUE GERD (gastroesophageal reflux disease) Hypothyroidism Limb alert care status LUE Morbid obesity with BMI of 40.0-44.9, adult Obstructive sleep apnea [id number] On home oxygen therapy 2L n/c with cpap at HS Osteoarthritis Peripheral arterial disease Peripheral neuropathy bilt legs/feet Secondary hyperparathyroidism of renal origin Tremor Unable to ambulate khadar lift Wounds, multiple x 2 LUE, left ankle, multiple toes left side -- wound clinic pt Past Family History Family History Mother Family history of diabetes mellitus Grandmother Family history of diabetes mellitus maternal Other Colorectal cancer Inflammatory bowel disease Melanoma Past Surgical History Surgical History History of bilateral cataract extraction History of cardiac cath 01/2018 "about 2-3 weeks"; no stents placed @ [facility] by Dr. Coronel History of carpal tunnel release R wrist History of colonoscopy History of esophagogastroduodenoscopy (EGD) History of repair of anterior cruciate ligament of left knee History of repair of anterior cruciate ligament of right knee History of tonsillectomy History of tooth extraction wisdom teeth Social History Smoking Status: Current every day smoker tobacco type: cigarettes and cigars Smoking cigarettes per day: 1 ppd Do You Dip or Chew Tobacco: No Hx Alcohol Use: Yes Alcohol type: beer alcohol intake frequency: holidays/special occasions only Hx Substance Use: No substance use type: does not use Lab Results Anesthesia Preop Results Results Anesthesia Widget: WBC 10.60 K/uL (4.8-10.8) 06/05/21 Hgb 11.6 g/dL (14.0-18.0) L 06/05/21 Hct 36.2 % (42-52) L 06/05/21 Plt 291 K/uL (130-400) 06/05/21 Na 135 mmol/L (136-145) L 06/05/21 K 4.4 mmol/L (3.5-5.1) 06/05/21 Cl 93 mmol/L (98-107) L 06/05/21 CO2 30 mmol/L (21-32) 06/05/21 BUN 46 mg/dl (6-23) H 06/05/21 Creat 6.93 mg/dl (0.6-1.4) H* 06/05/21 Glucose Level 153 mg/dl (70-99(Fasting)) H 06/05/21 POC Glucose 193 mg/dl (70-99) H 06/01/21 PT 13.4 Seconds (9.0-12.0) H 06/05/21 PTT 28.0 Seconds (21.0-31.0) 06/05/21 INR 1.3 (0.9-1.1) H 06/05/21 TSH 5.874 uIu/ml (0.300-4.500) H 05/09/21 Free T4 1.13 ng/dl (0.61-1.60) 05/09/21 HA1c 7.0 % (4.5-5.6) H 06/05/21 SARS-CoV-2, RNA, NAAT NEGATIVE (NEGATIVE) 05/12/21 Blood Type O Positive 06/05/21 Antibody Screen NEGATIVE 06/05/21 Testing Electrocardiogram Date: 06/06/21 Findings: + SB @ (59) sinus bradycardia with 1st degree AV block, low voltage QRS, poor R wave progression, consider anterior SD vs lead placement vs LVH, when compared with ECG 04/06/21 no significant change. Echocardiogram Date: 05/15/21 EF: 50-55% mildly dilated left ventricle with possibly low-normal systolic function, cannot exclude wall motion abnormalities, moderate concentric left ventricular hypertrophy, moderate left atrial dilation, no significant valvular stenosis or regurg, normal right ventricular systolic pressure, compared to prior study from 05/16/20 LV systolic function may be slightly improved.
[~2021-06-16 13:04] MED LIST changes: -CEPH500C PO; -FENO145T26 PO; -FLUO20CA35 PO; -GLC/500 PO; -INSDGIPEN SC; +LACTATED RINGER'S 1,000 ML IV SCH; -MCR5 PO; -OMEG10007 PO; +SODIUM CHLORIDE 0.9% 1000ML IV SCH
[2021-06-16] MEDS ORDERED: ONDANSETRON INJ 2 MG/ML 2 ML VIAL IV PRN (14:33)
[2021-06-16] MEDS ORDERED: fentaNYL citrate 100 MCG/2 ML VIAL IV PRN (14:33)
[2021-06-16] MEDS ORDERED: ePHEDrine sulfate 50 MG/ML AMP IV PRN (14:33)
[2021-06-16] MEDS ORDERED: ATROPINE SULFATE 0.1 MG/ML 10ML SYR IV PRN (14:33)
[2021-06-16] MEDS ORDERED: PROPOFOL IV EMULSION 10 MG/ML 20 ML VIAL IV ONE (14:52)
[2021-06-16] MEDS ORDERED: MIDAZOLAM HCL 1 MG/ML 2ML VIAL ONE (14:53)
--- NOTE | 2021-06-16 15:27 | History & Physical Bridge Note ---
Date of Service June 16, 2021 History & Physical Bridge Note I have examined the patient, reviewed the History & Physical and in the interval since the performance of the History & Physical I have noted the following changes of clinical significance: no changes noted, nauseated
[2021-06-16 15:29] LABS: BUN Creatinine Ratio 5.9 (10-20); Calcium 8.5 mg/dl (8.5-10.1); Creatinine Clr Calc Pharmacy 18.9 ml/min; Est GFR (African American) 11.7 ml/min; Est GFR (Non-African American) 10.1 ml/min; Potassium 4.3 mmol/L (3.5-5.1)
[2021-06-16] MEDS ORDERED: ONDANSETRON INJ 2 MG/ML 2 ML VIAL ONE (15:32)
[2021-06-16] MEDS ORDERED: BUPIVACAINE 0.5 % 5 MG/1 ML MPF 30ML VIAL ONE (15:48)
[2021-06-16] MEDS ORDERED: LIDOCAINE 1% LOCAL 20 ML VIAL ONE (15:48)
--- NOTE | 2021-06-16 17:18 | Operative Report ---
Post Operative Report Pre & Post Diagnosis Operation Date: 06/16/21 14:50 Pre-Op Diagnosis: Type 2 Diabetes Mellitus with Foot Ulcer Post-Op Diagnosis: Type 2 Diabetes Mellitus with Foot Ulcer I identified the patient and participated in the time-out.: Yes Procedure Operation Date: 06/16/21 14:50 Actual Procedures p Left Foot 2nd and 3rd Toe Amputation - Demetrius Vela MD Surgeon Demetrius Vela MD Client Care Specialist Selam Austin no resident or fellow available Estimated Blood Loss 3 Findings Consistent with Post-Op Diagnosis Specimens Swab culture of second and third toe. Bone from the third toe for culture and the second and third toe sent separately as surgical specimens Drains None Anesthesia Type MAC Regional Complications none Disposition Accompanied Patient To Recovery: No Disposition: Recovery Room Indications Mr. Patiño has a substantial medical problems including end-stage renal disease on dialysis as well as diabetes and tobacco abuse. He has developed some wounds at the tips of the second and third toes which been going on for few weeks. We let these wounds declare themselves and then debrided them and found that there was exposed bone underneath and likely has osteomyelitis. It is recommended that he proceed with surgery at this time to have the involved toes partially removed and then primarily closed with healthy skin. Description of Procedure Informed consent obtained. Patient identified. He identified the operative site as the left foot second and third toes. A preoperative surgical timeout was performed. A preop dose of intravenous antibiotics was given. He was taken to the operating room positioned supine on the OR table with a bump under the left hip and a tourniquet just below the peroneal nerve on the left calf. The leg was prescrubbed Betadine prepped and draped in usual sterile fashion DVT prophylaxis not indicated intraoperatively. Postoperatively mechanical devices and early mobility. The limb was exsanguinated with Esmarch tourniquet inflated to 225 mmHg. The toes were not included in the exsanguination. There is no erythema or swelling and no drainage. The distal phalanx of both the second and third toes were exposed under black necrotic tissue which covered the entire tip of the third toe and more of the plantar tip of the second. I made a tennis racquet incision on the second toe down the dorsal aspect and then curved around distally and plantarly. I excised the entire area of bad skin which included a small patch at the level of the PIP joint. I then transected the toe at the PIP joint and dissected out the toe. At this time there is not enough skin to cover over. I then resected the proximal phalanx head which gave enough room for tissue closure. With a clean scalpel I transected the extensor tendon and did a dorsal capsulotomy has he had somewhat of a claw toe deformity of that toe and this seemed to help. I then went ahead to the third toe and made a longitudinal dorsal incision and then ellipsed out the distal portion of the toe in a [id number] fashion. I then resected through the PIP joint remove the toe. Each toe was sent separately for specimen. Took a culture of the distal tip of both toes together and then also sent bone from the third toe as a specimen for culture. I went ahead and needed to resect the proximal phalanx head. This enabled adequate tissue for side to side closure. Tourniquet let down there was some mild bleeding but nothing pumping. Irrigation performed. I then closed the third toe side to side with 3-0 nylon in a tension-free fashion. I then brought the plantar tissues up of the second toe and close them at the level of the PIP joint transection. The proximal limb extension of both toes was closed in interrupted fashion. Simple and horizontal mattress sutures were utilized. A tension-free closure was effected. There was a small lesion on the lateral side of the great toe which was probably from rubbing on to the second toe. This was debrided and it was just some loose epidermal tissue with some red granulating dermis underneath it less than a cent imeter in size. He did have an area over the lateral malleolus which was about 3 to 4 cm in diameter. There was some darkish discoloration there only of the epidermis and a central area where there is a little bit more darker colored tissue. This was covered with Optifoam and a wound care consult will be obtained. Also placed between the toes. Prior to the start of surgery local anesthetic wa s injected for digital block and sedation was performed. The tourniquet was let down prior to wound closure meticulous hemostasis was performed. Copious irrigation was given. A well-padded dressing was applied Xeroform 4 x 4's ABD soft wrap Nahun wrap postop shoe. Patient awakened from anesthesia without difficulty taken to recovery in stable condition specimens as mentioned above. Counts correct blood loss 3 cc. At the conclusion the operation spoke patient's sister informed her of my findings postop instructions were given. The patient will be admitted to the hospital overnight at least for intravenous antibiotics and wound care consult. He may need to stay longer depending on his medical condition. Medical consult. End of dictation thank you I attest to the content of the Intraoperative Record and any orders documented therein. Any exceptions are noted below.
--- NOTE | 2021-06-16 17:19 | Fluoroscopy Report ---
FL foot LT 2V CLINICAL HISTORY: LT 2ND 3RD TOE AMP COMPARISON STUDY: None. FLUOROSCOPY TIME: 1 second. FINDINGS: A single fluoroscopic spot image of the left foot demonstrate partial amputation of the sec ond and third toes. IMPRESSION: Fluoroscopic assistance provided for partial amputation of the left second and third toes ACT 112: Negative or not required by law. Electronically signed by: Leopoldo Lucero M.D. 06/16/2021 5:18 PM
--- NOTE | 2021-06-16 17:37 | Operative Report ---
Post Operative Report Pre & Post Diagnosis Operation Date: 06/16/21 14:50 Pre-Op Diagnosis: Diabetic Foot Ulcer with Osteomyelitis of Second and Third Toe Post-Op Diagnosis: Diabetic Foot Ulcer with Osteomyelitis of Second and Third Toe I identified the patient and participated in the time-out.: Yes Procedure Operation Date: 06/16/21 14:50 Actual Procedures p Left Foot 2nd and 3rd Toe Amputation(Left) - Demetrius Vela MD Surgeon Demetrius Vela MD [employer] Travel Counselor Selam Austin no resident or fellow available Estimated Blood Loss 3 Findings Consistent with Post-Op Diagnosis Necrotic left second and third toes Specimens Left second and third toe Anesthesia Type General Description of Procedure Patient was taken to the operating room and placed under IV sedation and given to digital nerve blocks in the second and third toes. I was present during the entire case and assisted with tissue retraction, positioning, closure, dressings. Please see Dr. Vela's operative report for further detail. Patient was awakened and transferred to recovery room in stable condition. He was given IV Ancef for surgical prophylaxis. I attest to the content of the Intraoperative Record and any orders documented therein. Any exceptions are noted below.
--- NOTE | 2021-06-16 17:43 | Anesthesiology Progress Note ---
Date of Service June 16, 2021 Anesthesia Post Procedure Vital Signs Vital Signs: Temp Pulse Pulse Resp BP Pulse Ox 06/16/21 17:35 60 16 157/60 H 98 06/16/21 17:28 97.3 F L 70 16 161/64 H 95 06/16/21 14:04 98.4 F 64 20 120/69 94 Transfer of Care Handoff Completed per policy Notes Mental Status: alert / awake / arousable and participated in evaluation Patient Amnestic to Procedure: Yes Nausea / Vomiting: adequately controlled Pain: adequately controlled Airway Patency, RR, SpO2: stable & adequate BP & HR: stable & adequate Hydration State: stable & adequate Anesthetic Complications: no major complications apparent and Pt Satisfied with anesthetic care
[2021-06-16] MEDS ORDERED: NITROGLYCERIN SL 0.4 MG/TAB TAB SL PRN (18:12)
[2021-06-16] MEDS ORDERED: NALOXONE HCL 0.4 MG/1 ML VIAL/CARP IV PRN (18:12)
[2021-06-16] MEDS ORDERED: LANTUS PER UNIT CHARGE SQ SCH (18:12)
[2021-06-16] MEDS ORDERED: bisacodyL 10 MG SUPP PR PRN (18:12)
[2021-06-16] MEDS ORDERED: traMADol HCL 50 MG TABLET PO PRN (18:12)
[2021-06-16] MEDS ORDERED: MAGNESIUM HYDROXIDE SUSP 30 ML UDC PO PRN (18:12)
[2021-06-16] MEDS ORDERED: NYSTATIN POWDER 15GM BTL EXT PRN (18:12)
[2021-06-16] MEDS ORDERED: LOPERAMIDE HCL 2 MG CAP PO PRN (18:12)
[2021-06-16] MEDS ORDERED: oxyCODONE HCL IR 5 MG TAB (IMMEDIATE RELEASE) PO PRN (18:12)
[2021-06-16] MEDS ORDERED: PIPERACILL/TAZOBAC CONSULT ACTIVE PRN (18:23)
[2021-06-16] MEDS ORDERED: DAPTOmycin 600 MG in SYRINGE 0 ML IV SCH (19:00)
[2021-06-16] MEDS ORDERED: PIPERACILLIN/TAZOBACTAM 4.5 GM in DEXTROSE 5% 100 ML IV ONE (19:00)
[2021-06-16] MEDS ORDERED: PHARMACY GLYCEMIC MGMT CONSULT PRN (19:21)
[2021-06-16] MEDS: FUROSEMIDE 80 MG TAB PO SCH (20:48)
[2021-06-16] MEDS: carvediloL 6.25 MG TAB PO SCH (20:48)
[2021-06-16] MEDS: busPIRone 5 MG TAB PO SCH (20:50)
[2021-06-16] MEDS: INSULIN ASPART PER UNIT SC SCH (20:54)
[2021-06-16] MEDS ORDERED: ASPIRIN 81 MG ECTAB PO SCH (21:00)
[2021-06-16] MEDS ORDERED: INSULIN GLARGINE SOLOSTAR 100 UNITS/ML 3 ML PEN SC ONE (21:00)
[2021-06-16] MEDS ORDERED: SIMVASTATIN 20 MG TAB PO SCH (21:00)
[2021-06-16] MEDS ORDERED: amLODIPine BESYLATE 5 MG TAB PO SCH (21:00)
[2021-06-16] MEDS ORDERED: GABAPENTIN 300 MG CAP PO SCH (21:00)
[2021-06-16] MEDS ORDERED: PROCHLORPERAZINE 5 MG in SYRINGE 4 ML IV ONE (21:45)
[2021-06-16] MEDS: SODIUM CHLORIDE 0.9% 1000ML 1,000 ML IV SCH (21:51)
[2021-06-16] MEDS ORDERED: GLUCAGON FOR INJ 1 MG VIAL IM PRN (22:00)
[2021-06-16] MEDS ORDERED: DEXTROSE 50% 50 ML SYRINGE IV PRN (22:00)
[2021-06-16] MEDS ORDERED: GLUCOSE 40% GEL 15 GM TUBE PO PRN (22:00)
[2021-06-16] MEDS ORDERED: GLUCOSE 10 TABS/TUBE PO PRN (22:00)
[2021-06-16] MEDS ORDERED: CARBOHYDRATES FOR HYPOGLYCEMIA PO PRN (22:00)
[2021-06-16] MEDS ORDERED: SODIUM CHLORIDE 0.9% 1000ML 500 ML IV ONE (22:54)
[2021-06-17] MEDS ORDERED: INSULIN ASPART PER UNIT SC SCH (02:00)
[2021-06-17] MEDS ORDERED: SODIUM CHLORIDE 0.9% 1000ML 500 ML IV ONE (02:14)
[2021-06-17] MEDS ORDERED: PIPERACILLIN/TAZOBACTAM 4.5 GM in DEXTROSE 5% 100 ML IV SCH (03:00)
[2021-06-17] MEDS: SODIUM CHLORIDE 0.9% 1000ML 1,000 ML IV SCH (05:59)
[2021-06-17] MEDS ORDERED: LACTATED RINGER'S 1,000 ML IV SCH (06:15)
[2021-06-17] MEDS ORDERED: LEVOTHYROXINE SODIUM 125 MCG TABLET PO SCH (06:30)
[2021-06-17 08:49] LABS: Estimated Average Glucose 146 mg/dl; Hemoglobin A1C 6.7 % (4.5-5.6)
[2021-06-17] MEDS: INSULIN ASPART PER UNIT SC SCH ×2 (08:57→12:35)
[2021-06-17] MEDS ORDERED: HEPARIN SOD 5,000 UNIT/0.5 ML VIAL SQ SCH (09:00)
[2021-06-17] MEDS ORDERED: LOSARTAN POTASSIUM 50 MG TAB PO SCH (09:00)
[2021-06-17] MEDS ORDERED: PANTOprazole 40 MG TAB PO SCH (09:00)
[2021-06-17] MEDS ORDERED: ESCITALOPRAM OXALATE 10 MG TAB PO SCH (09:00)
--- NOTE | 2021-06-17 10:15 | Orthopedic Progress Note ---
Date of Service June 17, 2021 Assessment & Plan (1) Gangrenous toe: Plan: Status post amputation of left second and third toes with Dr. Vela yesterday. Patient is doing very well. Elevate left foot on pillows through prevent swelling. Keep dressings on at all times. Will obtain a wound consult for recommendations treatment on the wound on the lateral side of his left ankle. Dressings can be removed for this consultation and reapplied as appropriate. Currently has an Optifoam over that area. Subcu heparin given for DVT prophylaxis. IV antibiotics with IV Dapto and Zosyn. Will plan for discharge on Keflex and doxycycline orally. He may be out of bed for transfers into a chair. He may weight-bear as tolerated left lower extremity with his postop shoes on for transfers and when out of bed. Patient would like to be discharged home today. He states that he feels that he can do everything at home that he normally does. Patient has not been seen by medicine yet this morning but if no hesitations from medicine for discharge to home he will be discharged home later this afternoon. He will follow up as scheduled on June 19 at 11:15 AM. All questions were answered. Keep dressings in place until your follow-up appointment. Admission and Anticipated Discharge Date Admission Date: June 16, 2021 Subjective Patient resting in bed. No complaints of pain in his left foot. Left foot elevated on a pillow. Rolled to the outside. Denies any nausea, vomiting, diarrhea or constipation. Tolerating a regular diet. Physical Exam Musculoskeletal: Exam of his left lower extremity. Postoperative dressings are clean, dry and intact. Left in place. He has no sensation to his remaining toes which is normal for him due to his Neuropathy. Capillary refill is brisk. Able to move remaining toes. Leg adjusted on pillows to prevent any pressure on the outer aspect of his left ankle. Results & Data ([facility]) Vital Signs (Past 12 Hours) Vital Signs Temp Pulse Pulse Pulse Resp BP Pulse Ox 06/17/21 07:28 36.6 C 57 L 18 113/65 100 06/17/21 06:07 57 L 114/65 06/17/21 05:39 60 84/47 L 06/17/21 04:20 36.9 C 61 16 118/57 L 94 06/17/21 03:10 67 17 93 06/17/21 02:56 65 124/65 06/17/21 00:41 113/69 06/16/21 22:29 60 97/58 L 98 Laboratory Results 06/17/21 06/17/21 06/17/21 Range/Units 08:13 02:30 02:00 Sodium (136-145) mmol/L Potassium (3.5-5.1) mmol/L Chloride (98-107) mmol/L Carbon Dioxide (21-32) mmol/L Anion Gap (3-11) BUN (6-23) mg/dl Creatinine (0.6-1.4) mg/dl Est Cr Clr Drug Dosing ml/min Est GFR ( Amer) ml/min Est GFR (Non-Af Amer) ml/min BUN/Creatinine Ratio (10-20) Glucose (70-99(Fasting)) mg/dl POC Glucose 138 H 172 H (70-99) mg/dl Estimat Average Glucose mg/dl Hemoglobin A1c (4.5-5.6) % Calcium (8.5-10.1) mg/dl Nasal Screen MRSA (PCR) Negative (Negative) SARS-CoV-2, RNA, NAAT (NEGATIVE) 06/16/21 06/16/21 06/16/21 Range/Units Unknown 20:44 18:44 Sodium (136-145) mmol/L Potassium (3.5-5.1) mmol/L Chloride (98-107) mmol/L Carbon Dioxide (21-32) mmol/L Anion Gap (3-11) BUN (6-23) mg/dl Creatinine (0.6-1.4) mg/dl Est Cr Clr Drug Dosing ml/min Est GFR ( Amer) ml/min Est GFR (Non-Af Amer) ml/min BUN/Creatinine Ratio (10-20) Glucose (70-99(Fasting)) mg/dl POC Glucose 113 H 112 H (70-99) mg/dl Estimat Average Glucose mg/dl Hemoglobin A1c (4.5-5.6) % Calcium (8.5-10.1) mg/dl Nasal Screen MRSA (PCR) (Negative) SARS-CoV-2, RNA, NAAT NEGATIVE (NEGATIVE) 06/16/21 06/16/21 06/16/21 Range/Units 17:32 14:09 14:05 Sodium 136 (136-145) mmol/L Potassium 4.3 (3.5-5.1) mmol/L Chloride 91 L (98-107) mmol/L Carbon Dioxide 32 (21-32) mmol/L Anion Gap 13 H (3-11) BUN 32 H (6-23) mg/dl Creatinine 5.42 H* (0.6-1.4) mg/dl Est Cr Clr Drug Dosing 18.9 ml/min Est GFR ( Amer) 11.7 ml/min Est GFR (Non-Af Amer) 10.1 ml/min BUN/Creatinine Ratio 5.9 L (10-20) Glucose 133 H (70-99(Fasting)) mg/dl POC Glucose 125 H (70-99) mg/dl Estimat Average Glucose 146 mg/dl Hemoglobin A1c 6.7 H (4.5-5.6) % Calcium 8.5 (8.5-10.1) mg/dl Nasal Screen MRSA (PCR) (Negative) SARS-CoV-2, RNA, NAAT (NEGATIVE) 06/16/21 Range/Units 13:57 Sodium (136-145) mmol/L Potassium (3.5-5.1) mmol/L Chloride (98-107) mmol/L Carbon Dioxide (21-32) mmol/L Anion Gap (3-11) BUN (6-23) mg/dl Creatinine (0.6-1.4) mg/dl Est Cr Clr Drug Dosing ml/min Est GFR ( Amer) ml/min Est GFR (Non-Af Amer) ml/min BUN/Creatinine Ratio (10-20) Glucose (70-99(Fasting)) mg/dl POC Glucose 131 H (70-99) mg/dl Estimat Average Glucose mg/dl Hemoglobin A1c (4.5-5.6) % Calcium (8.5-10.1) mg/dl Nasal Screen MRSA (PCR) (Negative) SARS-CoV-2, RNA, NAAT (NEGATIVE)
[2021-06-17] MEDS: SEVELAMER HCL 800 MG TABLET PO SCH ×3 (10:57→17:33)
[2021-06-17] MEDS: busPIRone 5 MG TAB PO SCH (11:03)
[2021-06-17] MEDS: FUROSEMIDE 80 MG TAB PO SCH ×2 (11:03→17:33)
[2021-06-17] MEDS: carvediloL 6.25 MG TAB PO SCH ×2 (11:04→17:33)
[2021-06-17] MEDS ORDERED: COLLAGENASE OINT 30 GM TUBE EXT PRN (13:54)
--- NOTE | 2021-06-17 16:03 | Hospitalist Consultation ---
Date of Consultation June 17, 2021 Assessment & Plan (1) Hypotension: Patient is POD #1 s/p amputation of his second and third left toes. Tolerated the procedure without complications. Did have some postoperative hypotension as low as 84/47. As outlined above, he did receive dialysis yest erday and was n.p.o. in preparation of his planned procedure. He is typically to hold his antihypertensive agents on the day of dialysis but did not do that yesterday. Blood pressure improved with very gentle IV hydration to 114/65 and is normal this morning. His labs were reviewed today and at baseline. He is afebrile and otherwise hemodynamically stable. At this point time, he offers no medical contraindication to proceed with planned discharge. I did discuss this with the primary team. I encouraged that his antibiotics be renally adjusted to account for his dialysis. Antibiotics should be taken after dialysis on these days. In addition, I had a lengthy discussion with patient regarding following instructions from nephrology regarding withholding antihypertensive agents on days of dialysis. Plan of care was discussed with attending provider (Dr. Crowley) Otherwise, he is medically and hemodynamically stable for discharge to home (2) Gangrenous toe: S/p amputation. Follow-up with orthopedics as outlined by them (3) ESRD (end stage renal disease) on dialysis: Follow-up with scheduled dialysis tomorrow Follow-up with nephrology (4) Hypothyroidism: Continue Synthroid as prior to hospitalization (5) Hypertension: Continue losartan, Coreg, Norvasc as prior to hospitalization Withhold Norvasc and losartan on days of dialysis unless specified otherwise by Dr. Francis (6) Obstructive sleep apnea: Continue sleep CPAP (7) Peripheral arterial disease: Resume aspirin when cleared to do so by surgeon (typically would resume 48 hours postoperatively unless otherwise contraindicated by primary team) Follow-up with vascular surgery Avoid tobacco products Patient offers no medical contraindication to proceed with discharge. Plan of care was discussed with my attending (Dr. Crowley). Thank you for allowing me to precipitate in the care of this patient. History of Present Illness Reason for Consultation: Medical management Attending Physician: Demetrius Vela MD History of Present Illness Mr. Patiño is a 66-year-old white male with an underlying past medical history of ESRDon dialysis, DM, PAD, JANET, hypothyroidism, JANET, HLD, chronic dysphagia, and GERD. He was last hospitalized 05/12 through 05/16 due to gangrenous toe with superimposed abscess. Seen by orthopedics and vascular surgery at that time and plan was for treatment with antibiotics and bring him back into the hospital for amputation. Patient underwent amputation of left second and third toes and did rather well. He did have some hypotension last evening (as low as 84/47) requiring gentle IV hydration. In lengthy discussion with him, he did have dialysis yesterday but was also n.p.o. for planned procedure following dialysis. He is to hold his antihypertensive agents on the day of dialysis but does not do so. This morning, his blood pressure is 126/61 and he is otherwise hemodynamically stable. Plan is for discharge to home by primary team but they wanted to ensure that he was medically stable given the low blood pressures last evening. Patient denies fevers, chills, chest pain, shortness of breath, abdominal pain, nausea or vomiting. I did speak to primary team and there was no concern for tendon involvement. CT done during his last hospital stay showed no evidence of osteomyelitis. They are sending him home with a short course of prophylactic antibiotics given recent cellulitis. Allergies Allergy/AdvReac Type Severity Reaction Status Date / Time lactose Allergy Intermediate Gastrointestinal Verified 06/16/21 13:26 Upset No Known Drug Allergies Allergy NKDA Verified 06/16/21 13:26 Home Medications Medication Instructions Recorded Confirmed Type amlodipine 10 mg tablet 10 mg PO HS #90 tab 06/26/20 06/16/21 Rx aspirin 81 mg chewable tablet 81 mg PO HS #90 tab 06/26/20 06/16/21 Rx gabapentin 100 mg capsule 300 mg PO HS #270 cap 06/26/20 06/16/21 Rx nitroglycerin 0.4 mg sublingual 0.4 mg SUBLINGUAL DIRECTED PRN 07/11/20 06/16/21 History tablet insulin glargine 100 unit/mL See Rx Instructions .ROUTE .COMPLEX 01/05/21 06/16/21 History subcutaneous solution (Lantus U-100 Insulin) loperamide 2 mg capsule (Imodium 2 mg PO DIRECTED PRN 01/05/21 06/16/21 History A-D) HYDRAULIC KHADAR LIFT #1 ea 01/26/21 06/08/21 Rx FreeStyle Virgil 14 Day Sensor #6 ea NS 02/24/21 06/08/21 Rx (flash glucose sensor) FreeStyle Virgil 14 Day Marquette #1 ea NS 03/08/21 06/08/21 Rx (flash glucose scanning reader) nystatin 100,000 unit/gram topical 1 applic TOPICAL BID PRN 04/04/21 06/16/21 History powder sevelamer carbonate 800 mg tablet 2,400 mg PO TIDM 04/04/21 06/16/21 History buspirone 10 mg tablet 10 mg PO BID 05/09/21 06/16/21 History escitalopram oxalate 10 mg tablet 10 mg PO QAM 05/09/21 06/16/21 History losartan 50 mg tablet 50 mg PO QAM 05/09/21 06/16/21 History simvastatin 20 mg tablet 20 mg PO HS 05/12/21 06/16/21 History collagenase clostridium histo. 250 1 applic TOPICAL DAILY 14 Days #30 05/22/21 06/16/21 Rx unit/gram topical ointment (Santyl) g furosemide 80 mg tablet (Lasix) 80 mg PO BID #180 tab 06/08/21 06/16/21 Rx carvedilol 12.5 mg tablet 6.25 mg PO BID 06/11/21 06/16/21 History levothyroxine 125 mcg tablet 125 mcg PO QAM 06/11/21 06/16/21 History omeprazole 20 mg capsule,delayed 20 mg PO QAM 06/11/21 06/16/21 History release cephalexin 500 mg capsule 500 mg PO BID 5 Days #10 cap 06/17/21 Rx doxycycline hyclate 100 mg tablet 100 mg PO BID 5 Days #10 tab 06/17/21 Rx Patient History Medical History Anemia in chronic kidney disease Anxiety Bedbound Depression DM type 2 (diabetes mellitus, type 2) Dyslipidemia Dysphagia ESRD (end stage renal disease) on dialysis started in 2019 - [facility] in [place]. (per sister, passenger coach driver recommends 5xwk but pt refuses) Fistula LUE GERD (gastroesophageal reflux disease) Hypothyroidism Limb alert care status LUE Morbid obesity with BMI of 40.0-44.9, adult Obstructive sleep apnea [id number] On home oxygen therapy 2L n/c with cpap at HS Osteoarthritis Peripheral arterial disease Peripheral neuropathy bilt legs/feet Secondary hyperparathyroidism of renal origin Tremor Unable to ambulate khadar lift Wounds, multiple x 2 LUE, left ankle, multiple toes left side -- wound clinic pt Surgical History History of bilateral cataract extraction History of cardiac cath 01/2018 "about 2-3 weeks"; no stents placed @ [facility] by Dr. Coronel History of carpal tunnel release R wrist History of colonoscopy History of esophagogastroduodenoscopy (EGD) History of repair of anterior cruciate ligament of left knee History of repair of anterior cruciate ligament of right knee History of tonsillectomy History of tooth extraction wisdom teeth Family History Mother Family history of diabetes mellitus Grandmother Family history of diabetes mellitus maternal Other Colorectal cancer Inflammatory bowel disease Melanoma Social History Smoking Status: Current every day smoker Tobacco Type: Cigarettes Age Started Using Tobacco: 15; Cigarettes Per Day: 1 ppd; Second Hand Exposure: Yes (as a child); Do You Dip or Chew Tobacco: No; Tobacco Cessation Education Requested by Patient: No Hx Alcohol Use: Yes Alcohol type: beer Hx Substance Use: No Preferred Language: Hong Konger Communication Ability: Effective Foundry Metallurgist Required: No Beliefs That Will Affect Care: None marital status: Single Current Living Situation: Family Current Living Situation Comment: pt lives with son current occupational status: retired How many Children do You have: 2 Feels Safe at Home: Yes Seatbelt Use: always Assistive Devices: CPAP, Oxygen - Continuous and Wheelchair Assistive Devices Comment: khadar lift; oxygen prn Review of Systems Review of Systems: All systems reviewed and are unremarkable except as noted in HPI and below Denies fevers, chills, headache, nasal congestion, sore throat, cough, chest pain, shortness of breath, palpitations, orthopnea, PND, abdominal pain, nausea, vomiting, diarrhea, constipation, dysuria, hematuria, frequency, back pain, joint pain or swelling, easy bruising or bleeding, skin lesions or rashes. Physical Exam Physical Exam: General: Resting comfortably in his hospital bed. does not appear ill or toxic. NAD HEENT: Head is AT/NC. Buccal mucosa is moist and pink Neck: No JVD. Negative hepatojugular reflex Cardiac: Distant Heart Sounds. Lungs: CTA without W/R/R Abdomen: Surgical dressing to left lower extremity. Dry and intact. Extremities: No peripheral clubbing cyanosis or edema Neuro: A&O X4. Cranial nerves II through XII are grossly intact. No focal neuro deficits Skin: No obvious skin lesions or rashes Psych: Appropriate affect. Pleasant and cooperative Results & Data Results & Data ([facility]) Vital Signs (Past 12 Hours) Vital Signs Temp Pulse Pulse Resp BP Pulse Ox 06/17/21 15:51 36.6 C 63 57 L 18 126/61 100 06/17/21 10:57 63 126/61 06/17/21 07:28 36.6 C 57 L 18 113/65 100 06/17/21 06:07 57 L 114/65 06/17/21 05:39 60 84/47 L 06/17/21 04:20 36.9 C 61 16 118/57 L 94 Laboratory Results 06/16/21 14:05 PG Care Time/CCT Total # of Minutes Spent Total Time Spent with Patient: Total time spent is greater than 50% in coordination of care (as documented) at patient's floor/unit and/or counseling patient: Coding Level of Care Code 43677 Inpt Consult Level 4 Diagnoses Hypotension I95.9 Gangrenous toe I96 Hypothyroidism E03.9 Hypothyroidism type: unspecified Hypertension I10 Hypertension type: essential hypertension ESRD (end stage renal disease) on dialysis N18.6; Z99.2 Obstructive sleep apnea G47.33 Peripheral arterial disease I73.9 (1) Hypothyroidism Hypothyroidism type: unspecified Qualified Code(s): E03.9 - Hypothyroidism, unspecified (2) Hypertension Hypertension type: essential hypertension Qualified Code(s): I10 - Essential (primary) hypertension
[2021-06-17] MEDS ORDERED: INSULIN GLARGINE SOLOSTAR 100 UNITS/ML 3 ML PEN SC SCH (21:00)
--- NOTE | 2021-06-18 16:26 | Discharge Summary ---
Date of Service June 18, 2021 Discharge Data Consultations 06/16/21 18:12 Consult Internal Medicine Routine Procedures Performed Operation Date: 06/16/21 14:50 Actual Procedures p Left Foot 2nd and 3rd Toe Amputation(Left) - Demetrius Vela MD Hospital Course (1) Gangrenous toe: Patient was admitted to [facility] after undergoing an elective left second and third toe amputation for necrotic toes with Dr. Vela on June 16, 2021. His surgery was performed with IV sedation and loc al anesthetic. He tolerated the procedure well without any intraoperative complications. Intraoperative cultures were obtained and currently pending at the time of discharge. He was placed on IV daptomycin and IV Zosyn postoperatively for broad-spectrum coverage. Postoperatively he was allowed out of bed, weight-bear as tolerated for transfers to his chair with a postop shoe in place. His home medications were continued. A glycemic consult was placed to pharmacy for management of his diabetes during his inpatient stay. Hospitalist consult was also placed for postoperative medical management. He was given his regular diet. His IV antibiotics were continued and up until the time of discharge. On postoperative day 1 his dressings were clean, dry and intact. He was tolerating a regular diet. No issues. He is bed ridden to chair at home. He wished to go home as his bed was more comfortable there than the hospital. He has outpatient hemodialysis scheduled on . Follow-up with our office for dressing change was scheduled on Tuesday, June 19, 2021. He was medically And orthopedically stable for discharge On June 17, 2021. He was discharged to his home in stable condition. Home health arrangements were made by case management. He was discharged home on oral Keflex and doxycycline for 5 days. His cultures were pending at the time of discharge and will be followed as an outpatient. Discharge instructions were reviewed. All questions were answered.
--- NOTE | 2021-06-18 16:35 | Discharge Summary (DS) ---
DATE OF ADMISSION: 06/16/2021 DATE OF DISCHARGE: 06/17/2021 ADMISSION DIAGNOSIS: Osteomyelitis of the left foot second and third toes. The procedure was partial amputation of the left foot second and third toes. ATTENDING PHYSICIAN AND SURGEON: Demetrius Vela MD. BRIEF HISTORY: Mr. Patiño has multiple medical problems including renal failure and diabetes. He rece ntly developed some wounds on his left foot. His circulation status is felt to be okay by vascular e valuation. The wounds were allowed to declare themselves, and upon debridement, exposed bone was home ntified; findings consistent with osteomyelitis. He had dialysis on the day of surgery and then came in for the procedure. It was necessary to have h im stay overnight given his complex medical history. Surgery was performed without incident. Postop eratively, he was placed on IV antibiotics and continued on his regular medications. The following d ay, he was doing well. He was orthopedically and medically stable. He was discharged home and switc hed to oral antibiotics. He will continue his routine medications and he will continue his dialysis. He has a followup arranged in our office in a few days for a wound check and he will wear a postop shoe, elevate, apply ice. Home nursing has also been arranged. Job ID: [id number]
== END 2021-06-17 18:23 | disposition home health service (06) ==
LOC: ASU 13:04 → 3E 13:04

== ENCOUNTER 2021-06-23 16:19 | Inpatient (IN) ==
[2021-06-23] MEDS ORDERED: CALCIUM GLUCONATE 1,000 MG/60 ML BAG IV STA (16:25)
[2021-06-23] MEDS ORDERED: ALBUT/IPRATROP 3MG/0.5MG NEB 3 ML VIAL NEB STA (16:25)
[2021-06-23] MEDS ORDERED: ACETAMINOPHEN 1,000 MG/100 ML VIAL IV STA (16:31)
--- NOTE | 2021-06-23 16:35 | Emergency Department Note ---
History of Present Illness General Chief complaint: Shortness of Breath/Dyspnea Time Seen by Provider: 06/23/21 16:25 Source: EMS History of Present Illness Provider complaint: Shortness of breath illness Onset (ago): day(s) 2 Associated symptoms: + confusion, + cough and + shortness of breath Old male end-stage renal disease on hemodialysis patient states Tuesday presents emergency department for difficulty breathing and illness. EMS reports he got a call for illness when they arrived the patient was satting 80% on room air. The patient vomited twice. No reported trauma. Patient had recent foot surgery. Home Medications Medication Instructions Recorded Confirmed Type amlodipine 10 mg tablet 10 mg PO HS #90 tab 06/26/20 06/23/21 Rx aspirin 81 mg chewable tablet 81 mg PO HS #90 tab 06/26/20 06/23/21 Rx gabapentin 100 mg capsule 300 mg PO HS #270 cap 06/26/20 06/23/21 Rx nitroglycerin 0.4 mg sublingual 0.4 mg SUBLINGUAL DIRECTED PRN 07/11/20 06/23/21 History tablet insulin glargine 100 unit/mL See Rx Instructions .ROUTE .COMPLEX 01/05/21 06/23/21 History subcutaneous solution (Lantus U-100 Insulin) loperamide 2 mg capsule (Imodium 2 mg PO DIRECTED PRN 01/05/21 06/23/21 History A-D) HYDRAULIC KHADAR LIFT #1 ea 01/26/21 06/08/21 Rx FreeStyle Virgil 14 Day Sensor #6 ea NS 02/24/21 06/08/21 Rx (flash glucose sensor) FreeStyle Virgil 14 Day [place] #1 ea NS 03/08/21 06/08/21 Rx (flash glucose scanning reader) nystatin 100,000 unit/gram topical 1 applic TOPICAL BID PRN 04/04/21 06/23/21 History powder sevelamer carbonate 800 mg tablet 2,400 mg PO TIDM 04/04/21 06/23/21 History buspirone 10 mg tablet 10 mg PO BID 05/09/21 06/23/21 History escitalopram oxalate 10 mg tablet 10 mg PO QAM 05/09/21 06/23/21 History losartan 50 mg tablet 50 mg PO QAM 05/09/21 06/23/21 History simvastatin 20 mg tablet 20 mg PO HS 05/12/21 06/23/21 History collagenase clostridium histo. 250 1 applic TOPICAL DAILY 14 Days #30 05/22/21 06/23/21 Rx unit/gram topical ointment (Santyl) g furosemide 80 mg tablet (Lasix) 80 mg PO BID #180 tab 06/08/21 06/23/21 Rx carvedilol 12.5 mg tablet 12.5 mg PO BID 06/11/21 06/23/21 History levothyroxine 125 mcg tablet 125 mcg PO QAM 06/11/21 06/23/21 History omeprazole 20 mg capsule,delayed 20 mg PO QAM 06/11/21 06/23/21 History release fluticasone propionate 50 2 spray INTRANASAL DAILY #16 g 06/22/21 06/23/21 Rx mcg/actuation nasal spray,suspension Allergies Allergy/AdvReac Type Severity Reaction Status Date / Time lactose Allergy Intermediate Gastrointestinal Verified 06/23/21 17:00 Upset Past Med/Surg History Medical History Anemia in chronic kidney disease Anxiety Bedbound Depression DM type 2 (diabetes mellitus, type 2) Dyslipidemia Dysphagia ESRD (end stage renal disease) on dialysis started in 2019 - [facility] in [place]. (per sister, back panel padder recommends 5xwk but pt refuses) Fistula LUE GERD (gastroesophageal reflux disease) Hypothyroidism Limb alert care status LUE Morbid obesity with BMI of 40.0-44.9, adult Obstructive sleep apnea [id number] On home oxygen therapy 2L n/c with cpap at HS Osteoarthritis Peripheral arterial disease Peripheral neuropathy bilt legs/feet Secondary hyperparathyroidism of renal origin Tremor Unable to ambulate khadar lift Wounds, multiple x 2 LUE, left ankle, multiple toes left side -- wound clinic pt Surgical History History of bilateral cataract extraction History of cardiac cath 01/2018 "about 2-3 weeks"; no stents placed @ [facility] by Dr. Coronel History of carpal tunnel release R wrist History of colonoscopy History of esophagogastroduodenoscopy (EGD) History of repair of anterior cruciate ligament of left knee History of repair of anterior cruciate ligament of right knee History of tonsillectomy History of tooth extraction wisdom teeth Family History Mother Family history of diabetes mellitus Grandmother Family history of diabetes mellitus maternal Other Colorectal cancer Inflammatory bowel disease Melanoma Social History Smoking Status: Current every day smoker Tobacco Type: Cigarettes Age Started Using Tobacco: 15; Cigarettes Per Day: 1 ppd; Second Hand Exposure: Yes (as a child); Hx Alcohol Use: Yes Alcohol type: beer Hx Substance Use: No Preferred Language: Latvian Communication Ability: Effective Insurance Special Agent Required: No Beliefs That Will Affect Care: None marital status: Single Current Living Situation: Family Current Living Situation Comment: pt lives with son current occupational status: retired How many Children do You have: 2 Feels Safe at Home: Yes Seatbelt Use: always Assistive Devices: CPAP, Oxygen - Continuous and Wheelchair Review of Systems Unobtainable due to cognitive status Physical Exam Vital Signs Vital Signs - 24 hr 06/23/21 15:58 06/23/21 16:00 06/23/21 16:29 Temperature 38.2 C H Temperature Source Oral Pulse Rate 72 72 Pulse Rate from SpO2 Sensor Pulse Rhythm Regular Pulse Strength Normal Respiratory Rate 26 H 25 H 25 H Respiratory Effort / Characteristics Labored Respiratory Depth Shallow Respiratory Pattern Rapid/Shallow Blood Pressure 183/85 H Blood Pressure Mean 117 Blood Pressure Position Sitting Pulse Oximetry 81 L 96 Oxygen Delivery Method Room Air CPAP Fraction of Inspired Oxygen 100 Sepsis Recent Fever Within 48 Hours Yes Sepsis New/Unexplained Change in Mental Status Yes Sepsis Action Taken by Nursing Physician Notified 06/23/21 16:30 06/23/21 16:35 06/23/21 16:38 Temperature Temperature Source Pulse Rate 72 70 72 Pulse Rate from SpO2 Sensor Pulse Rhythm Pulse Strength Respiratory Rate 26 H 26 H 26 H Respiratory Effort / Characteristics Spontaneous Respiratory Depth Respiratory Pattern Irregular See-Saw Blood Pressure Blood Pressure Mean Blood Pressure Position Pulse Oximetry 100 100 Oxygen Delivery Method CPAP CPAP Fraction of Inspired Oxygen 100 100 100 Sepsis Recent Fever Within 48 Hours Sepsis New/Unexplained Change in Mental Status Sepsis Action Taken by Nursing 06/23/21 16:40 06/23/21 16:45 06/23/21 16:50 Temperature Temperature Source Pulse Rate 70 71 69 Pulse Rate from SpO2 Sensor Pulse Rhythm Pulse Strength Respiratory Rate 25 H 24 24 Respiratory Effort / Characteristics Respiratory Depth Respiratory Pattern Blood Pressure Blood Pressure Mean Blood Pressure Position Pulse Oximetry 100 100 100 Oxygen Delivery Method CPAP CPAP CPAP Fraction of Inspired Oxygen 100 100 100 Sepsis Recent Fever Within 48 Hours Sepsis New/Unexplained Change in Mental Status Sepsis Action Taken by Nursing 06/23/21 17:18 06/23/21 17:24 06/23/21 17:25 Temperature 37.4 C Temperature Source Oral Pulse Rate 65 Pulse Rate from SpO2 Sensor 66 Pulse Rhythm Pulse Strength Respiratory Rate 20 Respiratory Effort / Characteristics Respiratory Depth Respiratory Pattern Blood Pressure 151/77 H Blood Pressure Mean 101 Blood Pressure Position Pulse Oximetry 100 100 Oxygen Delivery Method CPAP CPAP Fraction of Inspired Oxygen 100 100 Sepsis Recent Fever Within 48 Hours Sepsis New/Unexplained Change in Mental Status Sepsis Action Taken by Nursing 06/23/21 17:30 06/23/21 17:45 06/23/21 18:00 Temperature Temperature Source Pulse Rate 64 63 60 Pulse Rate from SpO2 Sensor Pulse Rhythm Pulse Strength Respiratory Rate 20 20 20 Respiratory Effort / Characteristics Respiratory Depth Respiratory Pattern Blood Pressure 148/60 H 131/59 L Blood Pressure Mean 89 83 Blood Pressure Position Pulse Oximetry 100 100 100 Oxygen Delivery Method CPAP CPAP CPAP Fraction of Inspired Oxygen 100 100 100 Sepsis Recent Fever Within 48 Hours Sepsis New/Unexplained Change in Mental Status Sepsis Action Taken by Nursing Physical Exam EYES: Conjunctivae and EOM are normal. Pupils are equal, round, and reactive to light. Right eye exhibits no discharge. Left eye exhibits no discharge. No scleral icterus. NECK: Normal range of motion. Neck supple. No JVD present. No spinous process tenderness present. No carotid bruit present. No rigidity. No tracheal deviation and normal range of motion present. No Brudzinski's sign and no Kernig's sign noted. CV: Normal rate, regular rhythm, normal heart sounds and intact distal pulses. There is no peripheral edema. Palpable radial pulses bue. PULM/CHEST: Rales bilaterally and expiratory wheezes bilaterally. - Chest Wall: He exhibits no tenderness. ABD: The abdomen is soft. MUSC/SKEL: AV fistula of the left upper extremity. Palpable thrill present. Surgical incisions on the left foot appear clean and Dry with no surrounding erythema discharge or bleeding. Left foot in surgical dressing. NEURO: Patient is alert oriented to place only. Not oriented to time or location. Motor and sensation grossly intact. SKIN: Skin is warm and dry. He is not diaphoretic. PSYCH: He has a normal mood and affect. Behavior is normal. Judgment and thought content normal. Course Course 1624: The patient was evaluated in room B11. A complete history and physical exam was performed Cardiac monitoring: An order was placed for continuous cardiac monitoring. The monitor shows a rate of 70 with sinus rhythm Patient was found to be hypoxic on room air. Patient was switched to BiPAP which improved his oxygen saturation. 1634: EMR reviewed. Patient is Tuesday end-stage renal disease on hemodialysis. Patient did have a left second and third toe amputation for diabetic foot ulcer and osteomyelitis on June 16, [address] Sergio Melgar. Per EMS the patient did not go to dialysis today. It is unclear when the patient last went to dialysis. Patient will be empirically treated with calcium gluconate 1 g IV piggyback for possible hyperkalemia given his missed hemodialysis as well as albuterol nebulizer. 1838: Vital signs stable on BiPAP.Labs show leukocytosis of 17.54. VBG shows PCO2 of 53 pH of 7.38. Potassium 5.2. Troponin 0 0.05. BNP 1121 troponin 0 0.05. Imaging shows fluid overload but no definite infiltrate. CT of the head and CT of the abdomen are within normal limits. Spoke with Dr. Vasquez nephrology both he and I feel that the patient does not need emergent hemodialysis given he is stable on BiPAP his potassium is only 5.2. Dr. Vasquez states he can dialyze the patient tomorrow morning. Patient will be admitted to the [facility] team. Empiric antibiotics vancomycin and cefepime ordered for the patient. Dr. Leone team has been notified. Administered Medications Discontinued Medications Albuterol (Albut/Ipratrop 3mg/0.5mg Neb 3 Ml Vial) 3 ml NEB NOW STA; Protocol Stop: 06/23/21 16:26 Last Admin: 06/23/21 16:38 Dose: 3 ml Documented by: [id number] Calcium Gluconate () 1,000 mg in 60 mls @ 240 mls/hr IV NOW STA Stop: 06/23/21 16:39 Last Infusion: 06/23/21 17:55 Dose: 0 mls/hr Documented by: [id number] Admin: 06/23/21 17:26 Dose: 240 mls/hr Documented by: [id number] Acetaminophen (Ofirmev) 1,000 mg in 100 mls @ 400 mls/hr IV NOW STA Stop: 06/23/21 16:45 Last Infusion: 06/23/21 17:12 Dose: 0 mls/hr Documented by: [id number] Admin: 06/23/21 16:39 Dose: 400 mls/hr Documented by: [id number] Critical Care Time Critical Care Time: Yes Total Critical Care Time: 42 I have personally spent greater than 42 minutes of critical care time in the direct management of this patient. This includes bedside care, interpretation of diagnostic studies, and testing, discussion with consultants, patient, and family members, and other required patient management activities. This 42 minutes is in excess of all separately billable procedures. Medical Decision Making Laboratory Data Result diagrams: 06/23/21 16:43 06/23/21 16:43 Lab Results 06/23/21 06/23/21 06/23/21 Range/Units 16:35 16:42 16:43 WBC 17.54 H (4.8-10.8) K/uL RBC 3.70 L (4.7-6.1) M/uL Hgb 12.5 L (14.0-18.0) g/dL POC Hgb (14.0-18.0) g/dl Hct 37.1 L (42-52) % POC Hct (42-52) % MCV 100.3 H (80-100) fL MCH 33.8 (25-34) pg MCHC 33.7 (32-36) g/dL RDW Std Deviation 49.3 H (36.4-46.3) fL RDW Coeff of Jorge A 13.5 (11.5-14.5) % Plt Count 282 (130-400) K/uL MPV 10.1 (7.4-10.4) fL Immature Gran % (Auto) 0.7 % Neut % (Auto) 83.8 % Lymph % (Auto) 10.0 % [place] % (Auto) 4.2 % Eos % (Auto) 1.0 % Baso % (Auto) 0.3 % Neut # (Auto) 14.70 H (1.4-6.5) K/uL Lymph # (Auto) 1.75 (1.2-3.4) K/uL [place] # (Auto) 0.73 H (0.11-0.59) K/uL Eos # (Auto) 0.18 (0-0.5) K/uL Baso # (Auto) 0.05 (0-0.2) K/uL Immature Gran # (Auto) 0.13 H (0.00-0.02) K/uL PT (9.0-12.0) Seconds INR (0.9-1.1) APTT (21.0-31.0) Seconds PTT Ratio VBG pH (7.36-7.41) VBG pCO2 (38-50) mmHg VBG pO2 mmHg VBG HCO3 mmol/L VBG O2 Saturation % VBG Base Excess mEq/L Barometric Pressure mm/Hg POC Sodium (135-144) mmol/L Sodium (136-145) mmol/L POC Potassium (3.3-5.0) mmol/L Potassium (3.5-5.1) mmol/L POC Chloride (101-112) mmol/L Chloride (98-107) mmol/L Carbon Dioxide (21-32) mmol/L POC Total CO2 (24-31) mmol/L Anion Gap (3-11) POC Anion Gap (16-25) mmol/L POC BUN (7-18) mg/dl BUN (6-23) mg/dl Creatinine (0.6-1.4) mg/dl POC Creatinine (0.6-1.3) mg/dl Est Cr Clr Drug Dosing ml/min Est GFR ( Amer) ml/min Est GFR (Non-Af Amer) ml/min BUN/Creatinine Ratio (10-20) Glucose (70-99(Fasting)) mg/dl POC Glucose (other) (70-99) mg/dl Lactate (0.4-2.0) mmol/L Calcium (8.5-10.1) mg/dl POC Ioniz Calcium Alessandro (1.12-1.32) mmol/l Total Bilirubin (0.2-1.0) mg/dl Direct Bilirubin (0-0.2) mg/dl AST (13-39) U/L ALT (7-52) U/L Alkaline Phosphatase (34-104) U/L Troponin I (0-0.04) ng/ml B-Natriuretic Peptide 1121 H (0-100) pg/ml Total Protein (6.0-8.3) gm/dl Albumin (3.4-5.0) gm/dl Lipase (11-82) U/L SARS-CoV-2 (PCR) NEGATIVE (Negative) Influenza Type A (PCR) Negative (Neg) Influenza Type B (PCR) Negative (Neg) RSV (RT-PCR) Negative (Neg) 06/23/21 06/23/21 06/23/21 Range/Units 16:43 16:43 16:43 WBC (4.8-10.8) K/uL RBC (4.7-6.1) M/uL Hgb (14.0-18.0) g/dL POC Hgb (14.0-18.0) g/dl Hct (42-52) % POC Hct (42-52) % MCV (80-100) fL MCH (25-34) pg MCHC (32-36) g/dL RDW Std Deviation (36.4-46.3) fL RDW Coeff of Jorge A (11.5-14.5) % Plt Count (130-400) K/uL MPV (7.4-10.4) fL Immature Gran % (Auto) % Neut % (Auto) % Lymph % (Auto) % [place] % (Auto) % Eos % (Auto) % Baso % (Auto) % Neut # (Auto) (1.4-6.5) K/uL Lymph # (Auto) (1.2-3.4) K/uL [place] # (Auto) (0.11-0.59) K/uL Eos # (Auto) (0-0.5) K/uL Baso # (Auto) (0-0.2) K/uL Immature Gran # (Auto) (0.00-0.02) K/uL PT 13.9 H (9.0-12.0) Seconds INR 1.3 H (0.9-1.1) APTT 29.9 (21.0-31.0) Seconds PTT Ratio 1.1 VBG pH 7.38 (7.36-7.41) VBG pCO2 53 H (38-50) mmHg VBG pO2 33 mmHg VBG HCO3 31 mmol/L VBG O2 Saturation < 60.0 % VBG Base Excess 4.8 mEq/L Barometric Pressure 736.1 mm/Hg POC Sodium (135-144) mmol/L Sodium 134 L (136-145) mmol/L POC Potassium (3.3-5.0) mmol/L Potassium 5.2 H (3.5-5.1) mmol/L POC Chloride (101-112) mmol/L Chloride 89 L (98-107) mmol/L Carbon Dioxide 29 (21-32) mmol/L POC Total CO2 (24-31) mmol/L Anion Gap 16 H (3-11) POC Anion Gap (16-25) mmol/L POC BUN (7-18) mg/dl BUN 52 H (6-23) mg/dl Creatinine 10.72 H* (0.6-1.4) mg/dl POC Creatinine (0.6-1.3) mg/dl Est Cr Clr Drug Dosing 9.3 ml/min Est GFR ( Amer) 5.1 ml/min Est GFR (Non-Af Amer) 4.4 ml/min BUN/Creatinine Ratio 4.9 L (10-20) Glucose 133 H (70-99(Fasting)) mg/dl POC Glucose (other) (70-99) mg/dl Lactate (0.4-2.0) mmol/L Calcium 9.7 (8.5-10.1) mg/dl POC Ioniz Calcium Alessandro (1.12-1.32) mmol/l Total Bilirubin 0.7 (0.2-1.0) mg/dl Direct Bilirubin 0.2 (0-0.2) mg/dl AST 12 L (13-39) U/L ALT 3 L (7-52) U/L Alkaline Phosphatase 78 (34-104) U/L Troponin I 0.05 H* (0-0.04) ng/ml B-Natriuretic Peptide (0-100) pg/ml Total Protein 8.3 (6.0-8.3) gm/dl Albumin 4.2 (3.4-5.0) gm/dl Lipase 29 (11-82) U/L SARS-CoV-2 (PCR) (Negative) Influenza Type A (PCR) (Neg) Influenza Type B (PCR) (Neg) RSV (RT-PCR) (Neg) 06/23/21 06/23/21 Range/Units 16:43 16:48 WBC (4.8-10.8) K/uL RBC (4.7-6.1) M/uL Hgb (14.0-18.0) g/dL POC Hgb 13.3 L (14.0-18.0) g/dl Hct (42-52) % POC Hct 39 L (42-52) % MCV (80-100) fL MCH (25-34) pg MCHC (32-36) g/dL RDW Std Deviation (36.4-46.3) fL RDW Coeff of Jorge A (11.5-14.5) % Plt Count (130-400) K/uL MPV (7.4-10.4) fL Immature Gran % (Auto) % Neut % (Auto) % Lymph % (Auto) % [place] % (Auto) % Eos % (Auto) % Baso % (Auto) % Neut # (Auto) (1.4-6.5) K/uL Lymph # (Auto) (1.2-3.4) K/uL [place] # (Auto) (0.11-0.59) K/uL Eos # (Auto) (0-0.5) K/uL Baso # (Auto) (0-0.2) K/uL Immature Gran # (Auto) (0.00-0.02) K/uL PT (9.0-12.0) Seconds INR (0.9-1.1) APTT (21.0-31.0) Seconds PTT Ratio VBG pH (7.36-7.41) VBG pCO2 (38-50) mmHg VBG pO2 mmHg VBG HCO3 mmol/L VBG O2 Saturation % VBG Base Excess mEq/L Barometric Pressure mm/Hg POC Sodium 133 L (135-144) mmol/L Sodium (136-145) mmol/L POC Potassium 5.1 H (3.3-5.0) mmol/L Potassium (3.5-5.1) mmol/L POC Chloride 92 L (101-112) mmol/L Chloride (98-107) mmol/L Carbon Dioxide (21-32) mmol/L POC Total CO2 32 H (24-31) mmol/L Anion Gap (3-11) POC Anion Gap 16.0 (16-25) mmol/L POC BUN 50 H (7-18) mg/dl BUN (6-23) mg/dl Creatinine (0.6-1.4) mg/dl POC Creatinine 11.6 H* (0.6-1.3) mg/dl Est Cr Clr Drug Dosing ml/min Est GFR ( Amer) ml/min Est GFR (Non-Af Amer) ml/min BUN/Creatinine Ratio (10-20) Glucose (70-99(Fasting)) mg/dl POC Glucose (other) 134 H (70-99) mg/dl Lactate 0.6 (0.4-2.0) mmol/L Calcium (8.5-10.1) mg/dl POC Ioniz Calcium Alessandro 1.08 L (1.12-1.32) mmol/l Total Bilirubin (0.2-1.0) mg/dl Direct Bilirubin (0-0.2) mg/dl AST (13-39) U/L ALT (7-52) U/L Alkaline Phosphatase (34-104) U/L Troponin I (0-0.04) ng/ml B-Natriuretic Peptide (0-100) pg/ml Total Protein (6.0-8.3) gm/dl Albumin (3.4-5.0) gm/dl Lipase (11-82) U/L SARS-CoV-2 (PCR) (Negative) Influenza Type A (PCR) (Neg) Influenza Type B (PCR) (Neg) RSV (RT-PCR) (Neg) Imaging Data Radiologist's Impression: Abdomen/Pelvis CT 06/23/21 16:[address] WITH IV CONTRAST CT DOSE: HISTORY: Generalized abdominal pain. Nausea. Vomiting. TECHNIQUE: Multiaxial CT images of the abdomen and pelvis were performed following the use of intravenous contrast. A dose lowering technique was utilized adhering to the principles of ALARA. COMPARISON STUDY: Abdomen and pelvis CTA 05/14/2021. FINDINGS: Please refer to same day chest CT for further evaluation of the lung bases. Suboptimal evaluation of the left side of the abdomen due to artifact from the patient's left abdominal wall abutting the gantry. This also results in streak artifact throughout the abdomen and pelvis. No pneumoperitoneum. No pneumatosis. No fractures within the visualized osseous structures. Small fat- containing umbilical hernia. There are few punctate gallstones. The gallbladder is mildly distended. No gallbladder wall thickening. The liver, spleen, adrenal glands, and pancreas are unremarkable. Stable bilateral renal hypodense lesions. These likely represent cysts. Stable calcifications within the kidneys the majority of which appear to be vascular. No ureteral stones. No hydronephrosis no retroperitoneal hematoma or lymphadenopathy. Normal caliber abdominal aorta with mild calcified plaque. Bladder wall thickening is likely due to underdistention. The prostate gland is mildly enlarged. A few colonic diverticula. No evidence for acute diverticulitis. Moderate well-formed stool seen throughout the colon. No bowel wall thickening or obstruction. Normal appendix. IMPRESSION: 1. No bowel wall thickening or obstruction. 2. Normal appendix. 3. A few punctate gallstones. The gallbladder is mildly distended. However, no gallbladder wall thickening. 4. Additional findings as described above. ACT 112: Negative or not required by law. Electronically signed by: Leopoldo Lucero M.D. 06/23/2021 5:29 PM Chest CTA 06/23/21 16:26 CHEST CTA for PULMONARY ARTERIES CT DOSE: HISTORY: Shortness of breath. Recent surgery. TECHNIQUE: Multiaxial CT images of the chest were performed following the intravenous administration of contrast to evaluate the pulmonary arteries. Maximal intensity projection images were also obtained. A dose lowering technique was utilized adhering to the principles of ALARA. COMPARISON STUDY: Chest CTA 05/14/2021. FINDINGS: Normal caliber thoracic aorta with no evidence for dissection. The heart is mildly enlarged. No pleural or pericardial effusions. Suboptimal evaluation of the segmental and subsegmental pulmonary arteries due to the streak artifact from the patient's body abutting the left-sided gantry. However, no definite filling defects within the pulmonary arteries to suggest a pulmonary embolus. Stable prominent paratracheal lymph nodes. No hilar lymphadenopathy. No fractures within the visualized osseous structures. No pneumothorax. The central airways are patent. Rounded areas consolidation within the base of the left lower lobe and lingula remain unchanged. This favors round atelectasis. Additional area of consolidation within the right lower lobe posteriorly also favors atelectasis. Groundglass densities within the upper lung zones are nonspecific but could be due to air-trapping given the poor inspiratory effort. IMPRESSION: 1. No definite evidence for pulmonary embolus. 2. Stable cardiomegaly. 3. Focal airspace consolidation within the base of the lingula and left lower lobe persist and favor round atelectasis. There is also a patchy area of consolidation within the right lower lobe posteriorly also favoring atelectasis. 4. Groundglass densities within the upper lung zones are nonspecific but favor air trapping from the poor inspiratory effort. ACT 112: Negative or not required by law. Electronically signed by: Leopoldo Lucero M.D. 06/23/2021 5:22 PM Chest X-Ray 06/23/21 16:26 XR chest 1V portable CLINICAL HISTORY: sob TECHNIQUE: Single frontal radiograph of the chest was obtained. Comparison: Comparison is made to chest one view 04/04/2021 FINDINGS: No lines and tubes are seen. Cardiomegaly is noted. There is prominence and cephalization of the vasculature with Mic B lines seen. No pneumothorax is seen, pleural effusions cannot be excluded. IMPRESSION: Cardiomegaly and mild pulmonary edema. Small bilateral pleural effusions cannot be excluded. ACT 112: Negative or not required by law. Electronically signed by: Kishan Burns M.D. 06/23/2021 4:[address] 06/23/21 16:[address] DOSE: 3965.18 mGy.cm HISTORY: Altered mental status. TECHNIQUE: Multiaxial CT images of the head were performed without the use of intravenous contrast. Automated exposure control was utilized for this study. A dose lowering technique was utilized adhering to the principles of ALARA. Comparison: Head CT 05/12/2021. Findings: Mild mucosal thickening within the sphenoid sinuses. The mastoid air cells are clear. No fluid levels within the paranasal sinuses. The calvarium and skull base are intact. There is no mass, hematoma, midline shift, acute infarct. White matter hypodensity is nonspecific but suggestive of microvascular ischemic change. The ventricles and sulci demonstrate mild age-related involutional changes. Impression: No significant change compared to the prior study. No acute intracranial abnormality. ACT 112: Negative or not required by law. Electronically signed by: Leopoldo Lucero M.D. 06/23/2021 6:00 PM Foot X-Ray 06/23/21 17:23 XR foot LT 2V CLINICAL HISTORY: post op fever COMPARISON STUDY: Left foot 05/13/2021. FINDINGS: Status post partial amputation of the second and third toes. Mild soft tissue swelling within the forefoot/toes. No soft tissue gas identified. No fracture or dislocation within the left foot. Plantar and posterior calcaneal spurs are noted. IMPRESSION: 1. Status post partial amputation of the second and third toes. 2. Mild soft tissue swelling within the left forefoot/toes. ACT 112: Negative or not required by law. Electronically signed by: Leopoldo Lucero M.D. 06/23/2021 6:05 PM ECG Data Indication: + altered mental status and + SOB/dyspnea Rate (beats per minute): 71 Rhythm: + normal sinus ECG Intervals/blocks: + First degree AV block, + Normal QRS and + Normal QT-c ECG ST segments: + Normal ST segments MDM Narrative 1625: The patient was evaluated in room B11. A complete history and physical exam was performed Cardiac monitoring: An order was placed for continuous cardiac monitoring. The monitor shows a rate of 70 with sinus rhythm Patient was found to be hypoxic on room air. Patient was switched to BiPAP which improved his oxygen saturation. 1635: EMR reviewed. Patient is Tuesday end-stage renal disease on hemodialysis. Patient did have a left second and third toe amputation for diabetic foot ulcer and osteomyelitis on June 16, [address] Sergio Melgar. Per EMS the patient did not go to dialysis today. It is unclear when the patient last went to dialysis. Patient will be empirically treated with calcium gluconate 1 g IV piggyback for possible hyperkalemia given his missed hemodialysis as well as albuterol nebulizer. 1839: Vital signs stable on BiPAP.Labs show leukocytosis of 17.54. VBG shows PCO2 of 53 pH of 7.38. Potassium 5.2. Troponin 0 0.05. BNP 1121 troponin 0 0.05. Imaging shows fluid overload but no definite infiltrate. CT of the head and CT of the abdomen are within normal limits. Spoke with Dr. Vasquez nephrology both he and I feel that the patient does not need emergent hemodialysis given he is stable on BiPAP his potassium is only 5.2. Dr. Vasquez states he can dialyze the patient tomorrow morning. Patient will be admitted to the [facility] hospitalist team. Empiric antibiotics vancomycin and cefepime ordered for the patient. Dr. Leone team has been notified. Impression & Plan Fluid overload, ESRD (end stage renal disease) on dialysis, Hypoxia, Fever Discharge Plan Visit Data Chief Complaint: Shortness of Breath/Dyspnea ED Provider: Jonathon aMrquis Discharge Problem: Fluid overload, ESRD (end stage renal disease) on dialysis, Hypoxia, Fever Patient Disposition: Admitted As Inpatient Forms Stand Al[facility]: [facility] Prescriptions Prescriptions: No Action Santyl 250 unit/gram ointment 1 applic topical DAILY 14 Days Qty: 30 RF: 1 amlodipine 10 mg tablet 10 mg PO HS Qty: 90 RF: 3 aspirin 81 mg tablet,chewable 81 mg PO HS Qty: 90 RF: 3 gabapentin 100 mg capsule 300 mg PO HS Qty: 270 RF: 3 (DME) HYDRAULIC KHADAR LIFT See Rx Instructions .Route .MEDSUPPLY Qty: 1 RF: 0 (DME) FreeStyle Virgil 14 Day Sensor Kit See Dose Instructions .ROUTE .MEDSUPPLY Qty: 6 RF: 3 (DME) FreeStyle Virgil 14 Day [place] Misc See Rx Instructions .ROUTE .MEDSUPPLY Qty: 1 RF: 5 furosemide [Lasix] 80 mg tablet 80 mg PO BID Qty: 180 RF: 3 fluticasone propionate 50 mcg/actuation spray,suspension 2 spray intranasal DAILY Qty: 16 RF: 5 nitroglycerin 0.4 mg tablet, sublingual 0.4 mg sublingual DIRECTED PRN (Reason: Chest Pain) RF: 0 Lantus U-100 Insulin 100 unit/mL Solution See Rx Instructions .ROUTE .COMPLEX RF: 0 loperamide [Imodium A-D] 2 mg capsule 2 mg PO DIRECTED PRN (Reason: loose stool) RF: 0 simvastatin 20 mg tablet 20 mg PO HS RF: 0 carvedilol 12.5 mg tablet 12.5 mg PO BID RF: 0 levothyroxine 125 mcg tablet 125 mcg PO QAM RF: 0 omeprazole 20 mg capsule,delayed release(DR/EC) 20 mg PO QAM RF: 0 nystatin 100,000 unit/gram powder 1 applic topical BID PRN (Reason: irritation) RF: 0 sevelamer carbonate 800 mg tablet 2,400 mg PO TIDM RF: 0 losartan 50 mg tablet 50 mg PO QAM RF: 0 buspirone 10 mg tablet 10 mg PO BID RF: 0 escitalopram oxalate 10 mg tablet 10 mg PO QAM RF: 0 Referrals Referrals: Veto Gan DO [Primary Care Provider] -
--- NOTE | 2021-06-23 16:53 | XRay Report ---
XR chest 1V portable CLINICAL HISTORY: sob TECHNIQUE: Single frontal radiograph of the chest was obtained. Comparison: Comparison is made to chest one view 04/04/2021 FINDINGS: No lines and tubes are seen. Cardiomegaly is noted. There is prominence and cephalization of the vasc ulature with Mic B lines seen. No pneumothorax is seen, pleural effusions cannot be excluded. IMPRESSION: Cardiomegaly and mild pulmonary edema. Small bilateral pleural effusions cannot be excluded. ACT 112: Negative or not required by law. Electronically signed by: Kishan Burns M.D. 06/23/2021 4:51 PM
[2021-06-23 16:57] LABS: Base Excess VBG 4.8 mEq/L; HCO3 VBG 31 mmol/L; PCO2 VBG 53 mmHg (38-50); PO2 VBG 33 mmHg; pH VBG 7.38 (7.36-7.41)
[2021-06-23 16:58] LABS: Oxygen Saturation VBG < 60.0 %
[2021-06-23 17:02] LABS: iSTAT Creatinine 11.6 mg/dl (0.6-1.3); iSTAT Hemoglobin 13.3 g/dl (14.0-18.0); iSTAT Ionized Calcium 1.08 mmol/l (1.12-1.32); iSTAT Potassium 5.1 mmol/L (3.3-5.0)
[2021-06-23 17:05] LABS: INR 1.3 (0.9-1.1); Partial Thromboplastin Ratio 1.1; Partial Thromboplastin Time 29.9 Seconds (21.0-31.0); Prothrombin Time 13.9 Seconds (9.0-12.0)
[2021-06-23 17:19] LABS: Hematocrit (blood only) 37.1 % (42-52); Hemoglobin 12.5 g/dL (14.0-18.0); Mean Corpuscular Hemoglobin 33.8 pg (25-34); Mean Corpuscular Hgb Conc 33.7 g/dL (32-36); Mean Corpuscular Volume 100.3 fL (80-100); Mean Platelet Volume 10.1 fL (7.4-10.4); Platelet Count 282 K/uL (130-400); RDW Coefficient of Variation 13.5 % (11.5-14.5); RDW Standard Deviation 49.3 fL (36.4-46.3); White Blood Count 17.54 K/uL (4.8-10.8)
--- NOTE | 2021-06-23 17:25 | CT Scan Report ---
CHEST CTA for PULMONARY ARTERIES CT DOSE: HISTORY: Shortness of breath. Recent surgery. TECHNIQUE: Multiaxial CT images of the chest were performed following the intravenous administration of contrast to evaluate the pulmonary arteries. Maximal intensity projection images were also obtaine d. A dose lowering technique was utilized adhering to the principles of ALARA. COMPARISON STUDY: Chest CTA 05/14/2021. FINDINGS: Normal caliber thoracic aorta with no evidence for dissection. The heart is mildly enlarged . No pleural or pericardial effusions. Suboptimal evaluation of the segmental and subsegmental pulmon etienne arteries due to the streak artifact from the patient's body abutting the left-sided gantry. Howev er, no definite filling defects within the pulmonary arteries to suggest a pulmonary embolus. Stable prominent paratracheal lymph nodes. No hilar lymphadenopathy. No fractures within the visualized osse ous structures. No pneumothorax. The central airways are patent. Rounded areas consolidation within t he base of the left lower lobe and lingula remain unchanged. This favors round atelectasis. Additiona l area of consolidation within the right lower lobe posteriorly also favors atelectasis. Groundglass densities within the upper lung zones are nonspecific but could be due to air-trapping given the poor inspiratory effort. IMPRESSION: 1. No definite evidence for pulmonary embolus. 2. Stable cardiomegaly. 3. Focal airspace consolidation within the base of the lingula and left lower lobe persist and favor round atelectasis. There is also a patchy area of consolidation within the right lower lobe posterior ly also favoring atelectasis. 4. Groundglass densities within the upper lung zones are nonspecific but favor air trapping from the poor inspiratory effort. ACT 112: Negative or not required by law. Electronically signed by: Leopoldo Lucero M.D. 06/23/2021 5:22 PM
[2021-06-23 17:28] LABS: Albumin Level 4.2 gm/dl (3.4-5.0); BUN Creatinine Ratio 4.9 (10-20); Bilirubin Direct 0.2 mg/dl (0-0.2); Bilirubin,Total 0.7 mg/dl (0.2-1.0); Calcium 9.7 mg/dl (8.5-10.1); Creatinine Clr Calc Pharmacy 9.3 ml/min; Est GFR (African American) 5.1 ml/min; Est GFR (Non-African American) 4.4 ml/min; Potassium 5.2 mmol/L (3.5-5.1); Total Protein 8.3 gm/dl (6.0-8.3); Troponin I 0.05 ng/ml (0-0.04)
--- NOTE | 2021-06-23 17:32 | CT Scan Report ---
ABDOMEN AND PELVIS CT WITH IV CONTRAST CT DOSE: HISTORY: Generalized abdominal pain. Nausea. Vomiting. TECHNIQUE: Multiaxial CT images of the abdomen and pelvis were performed following the use of intrave nous contrast. A dose lowering technique was utilized adhering to the principles of ALARA. COMPARISON STUDY: Abdomen and pelvis CTA 05/14/2021. FINDINGS: Please refer to same day chest CT for further evaluation of the lung bases. Suboptimal eval uation of the left side of the abdomen due to artifact from the patient's left abdominal wall abuttin g the gantry. This also results in streak artifact throughout the abdomen and pelvis. No pneumoperito neum. No pneumatosis. No fractures within the visualized osseous structures. Small fat-containing umb ilical hernia. There are few punctate gallstones. The gallbladder is mildly distended. No gallbladder wall thickening. The liver, spleen, adrenal glands, and pancreas are unremarkable. Stable bilateral renal hypodense lesions. These likely represent cysts. Stable calcifications within the kidneys the m ajority of which appear to be vascular. No ureteral stones. No hydronephrosis no retroperitoneal trisha suzy or lymphadenopathy. Normal caliber abdominal aorta with mild calcified plaque. Bladder wall thic kening is likely due to underdistention. The prostate gland is mildly enlarged. A few colonic diverti cula. No evidence for acute diverticulitis. Moderate well-formed stool seen throughout the colon. No bowel wall thickening or obstruction. Normal appendix. IMPRESSION: 1. No bowel wall thickening or obstruction. 2. Normal appendix. 3. A few punctate gallstones. The gallbladder is mildly distended. However, no gallbladder wall thick ening. 4. Additional findings as described above. ACT 112: Negative or not required by law. Electronically signed by: Leopoldo Lucero M.D. 06/23/2021 5:29 PM
[2021-06-23 17:55] LABS: Basophils # (auto) 0.05 K/uL (0-0.2); Basophils % (auto) 0.3 %; Eosinophils # (auto) 0.18 K/uL (0-0.5); Immature Granulocytes # (auto) 0.13 K/uL (0.00-0.02); Immature Granulocytes % (auto) 0.7 %; Lymphocytes # (auto) 1.75 K/uL (1.2-3.4); Monocytes # (auto) 0.73 K/uL (0.11-0.59); Monocytes % (auto) 4.2 %; Neutrophils % (auto) 83.8 %
--- NOTE | 2021-06-23 18:01 | CT Scan Report ---
HEAD CT NONCONTRAST CT DOSE: 3965.18 mGy.cm HISTORY: Altered mental status. TECHNIQUE: Multiaxial CT images of the head were performed without the use of intravenous contrast. A utomated exposure control was utilized for this study. A dose lowering technique was utilized adheri ng to the principles of ALARA. Comparison: Head CT 05/12/2021. Findings: Mild mucosal thickening within the sphenoid sinuses. The mastoid air cells are clear. No fl uid levels within the paranasal sinuses. The calvarium and skull base are intact. There is no mass, h ematoma, midline shift, acute infarct. White matter hypodensity is nonspecific but suggestive of micr ovascular ischemic change. The ventricles and sulci demonstrate mild age-related involutional changes . Impression: No significant change compared to the prior study. No acute intracranial abnormality. ACT 112: Negative or not required by law. Electronically signed by: Leopoldo Lucero M.D. 06/23/2021 6:00 PM
--- NOTE | 2021-06-23 18:07 | XRay Report ---
XR foot LT 2V CLINICAL HISTORY: post op fever COMPARISON STUDY: Left foot 05/13/2021. FINDINGS: Status post partial amputation of the second and third toes. Mild soft tissue swelling with in the forefoot/toes. No soft tissue gas identified. No fracture or dislocation within the left foot. Plantar and posterior calcaneal spurs are noted. IMPRESSION: 1. Status post partial amputation of the second and third toes. 2. Mild soft tissue swelling within the left forefoot/toes. ACT 112: Negative or not required by law. Electronically signed by: Leopoldo Lucero M.D. 06/23/2021 6:05 PM
[2021-06-23 18:20] LABS: Influenza A virus by PCR Negative (Neg); Influenza B virus by PCR Negative (Neg); RSV by PCR Negative (Neg); SARS CoV2 RNA(COVID-19) InHosp NEGATIVE (Negative)
[2021-06-23] MEDS ORDERED: VANCOMYCIN HCL 2,750 MG in SODIUM CHLORIDE 0.9% 500 ML IV ONE (18:26)
[2021-06-23] MEDS ORDERED: CEFEPIME 2,000 MG/20 ML VIAL IV STA (18:26)
[2021-06-23] MEDS ORDERED: VANCOMYCIN CONSULT ACTIVE PRN ×2 (18:26→22:41)
[2021-06-23] MEDS ORDERED: FUROSEMIDE 40 MG/4 ML VIAL IV ONE (18:33)
[2021-06-23] MEDS ORDERED: carvediloL 12.5 MG TAB PO ONE (20:00)
--- NOTE | 2021-06-23 20:00 | History & Physical Report ---
Date of Service June 23, 2021 Assessment & Plan (1) Hypoxia: Plan: 66yo male with history of ESRD, HLP, DM, GERD presenting with feeling of illness, hypoxic on arrival now improved with use of CPAP. CXR with suggestion of volume overload - most likely secondary to missed HD, volume overload. Patient presently not in any respiratory distress. He is comfortable on CPAP Covid/Flu is Negative VBG largely unremarkable - mildly elevated CO2 at 53 with normal pH Imaging does not suggest PNA but does show atelectasis. -Admit to PCU -Continue CPAP qHS and as needed -Incentive spirometry q 2 hours while awake -Patient to have HD in AM (2) Fever: Plan: Patient febrile on arrival at 38.2. ?infection source. Recent amputation - surgical site does not appear acutely infected. ?diabetic ulcer - recent debridement as possible source. ?early PNA -Follow cultures sent from ER -Empiric coverage with Vancomycin and Cefepime - appropriate dosing for ESRD/HD per pharmacy - appreciate assistance -Monitor wounds - wound care BID -Tylenol PRN (3) ESRD (end stage renal disease): Plan: Patient with ESRD on HD q T/R/Sat. He missed his HD treatment today - thinks he received a full treatment on Tuesday. Presently with normal pH of 7.38 on VBG, mild elevation of K at 5.2 without EKG changes. Patient is volume overloaded as described above. He was given Lasix in the ER and has produced a small amount of urine. Does not seem to require urgent dialysis at this time. -Admission with telemetry monitoring -Repeat chemistry in AM -May redose Lasix if patient becomes more hypoxic -Avoid nephrotoxic agents -Medication dosing for ESRD where appropriate -Continue Renagel -Nephrology consultation appreciated - will most likely receive HD in AM Of note - patient informed me that he finds HD extremely challenging and he became slightly frustrated when I explained to him that he will most likely receiving HD in the AM. He voiced to the ER nurse that he is not sure if he wants to continue receiving HD in the future. (4) Diabetes mellitus: Plan: Fairly well controlled with last [id number]=6.7 on 06/16/21 -Lantus 7u BID with ISS -Goal blood sugar 100 - 140 -Continue Gabapentin 300mg po qHS (5) Hypothyroidism: Plan: Chronic. -Check TSH in AM -Continue Synthroid 125mcg po daily (6) Hypertension: Plan: Chronic. Blood pressure presently 147/73 -Continue Losartan 50mg po qAM -Continue Carvedilol -Continue Amlodipine 10mg po qHS -Continue to monitor (7) Depression: Plan: Chronic -Continue Escitalopram 10mg po qAM -Continue Buspirone (8) GERD (gastroesophageal reflux disease): Plan: Chronic. Well controlled on medications -Continue Protonix 40mg po qAM (9) Peripheral arterial disease: Plan: Chronic -Continue Simvastatin 20mg po qHS -Continue ASA Plan: F/E/N - Heplock. Repeat chemistry in AM, Renal/CC diet as tolerated Ppx - Heparin 7500 TID Code - Full Dispo - Admit to PCU History of Present Illness Chief Complaint: illness Primary Care Provider: Veto Gan DO Mr. Maxx Patiño is a 66yo male with history of ESRD on HD q T/R/Sat - last full treatment received on Tuesday06/20/21, also with DM, HLP, GERD, Hypothyroidism. Patient presents to the ER with complaint of feeling "ill" for the last 1-2 days. He has cough as well as SOB. EMS was called - patient found to be saturating 80% on room air. He had two episodes of non-bloody/non-bilious vomiting prior to arrival. Patient has history of diabetic foot ulcer with osteomyelitis of the 2nd and 3rd toe s/p amputation performed by Dr. Vela on 06/16/21. The surgery was well tolerated with no complications. Patient was seen in [facility] yesterday 06/22/21 for management of his diabetic ulcer of the left ankle. He had debridement performed. Wounds are being dressed with Xeroform. Patient does not provide much history. He is complaining of mild abdominal pain and SOB. Otherwise, denies chest pain, diarrhea. He makes a small amount of urine. He did not receive his HD treatment today. No additional complaints at this time. Upon arrival to the ER, patient febrile at 38, RR of 26, saturating 81% on room air. He was placed on CPAP with improvement. ER Course: Zofran 4mg, Vancomycin 2750mg, Cefepime 2gm, Lasix 40mg, Calcium gluconate x 1gm, Tylenol x 1gm, Albuterol neb Allergies Allergy/AdvReac Type Severity Reaction Status Date / Time lactose Allergy Intermediate Gastrointestinal Verified 06/23/21 17:00 Upset Home Medications Medication Instructions Recorded Confirmed Type amlodipine 10 mg tablet 10 mg PO HS #90 tab 06/26/20 06/23/21 Rx aspirin 81 mg chewable tablet 81 mg PO HS #90 tab 06/26/20 06/23/21 Rx gabapentin 100 mg capsule 300 mg PO HS #270 cap 06/26/20 06/23/21 Rx nitroglycerin 0.4 mg sublingual 0.4 mg SUBLINGUAL DIRECTED PRN 07/11/20 06/23/21 History tablet insulin glargine 100 unit/mL See Rx Instructions .ROUTE .COMPLEX 01/05/21 06/23/21 History subcutaneous solution (Lantus U-100 Insulin) loperamide 2 mg capsule (Imodium 2 mg PO DIRECTED PRN 01/05/21 06/23/21 History A-D) HYDRAULIC KHADAR LIFT #1 ea 01/26/21 06/08/21 Rx FreeStyle Virgil 14 Day Sensor #6 ea NS 02/24/21 06/08/21 Rx (flash glucose sensor) FreeStyle Virgil 14 Day [place] #1 ea NS 03/08/21 06/08/21 Rx (flash glucose scanning reader) nystatin 100,000 unit/gram topical 1 applic TOPICAL BID PRN 04/04/21 06/23/21 History powder sevelamer carbonate 800 mg tablet 2,400 mg PO TIDM 04/04/21 06/23/21 History buspirone 10 mg tablet 10 mg PO BID 05/09/21 06/23/21 History escitalopram oxalate 10 mg tablet 10 mg PO QAM 05/09/21 06/23/21 History losartan 50 mg tablet 50 mg PO QAM 05/09/21 06/23/21 History simvastatin 20 mg tablet 20 mg PO HS 05/12/21 06/23/21 History collagenase clostridium histo. 250 1 applic TOPICAL DAILY 14 Days #30 05/22/21 06/23/21 Rx unit/gram topical ointment (Santyl) g furosemide 80 mg tablet (Lasix) 80 mg PO BID #180 tab 06/08/21 06/23/21 Rx carvedilol 12.5 mg tablet 12.5 mg PO BID 06/11/21 06/23/21 History levothyroxine 125 mcg tablet 125 mcg PO QAM 06/11/21 06/23/21 History omeprazole 20 mg capsule,delayed 20 mg PO QAM 06/11/21 06/23/21 History release fluticasone propionate 50 2 spray INTRANASAL DAILY #16 g 06/22/21 06/23/21 Rx mcg/actuation nasal spray,suspension Past Med/Surg History Medical History Anemia in chronic kidney disease Anxiety Bedbound Depression DM type 2 (diabetes mellitus, type 2) Dyslipidemia Dysphagia ESRD (end stage renal disease) on dialysis started in 2019 - [facility], [place] [facility] in [place]. (per sister, ornamental brick installer recommends 5xwk but pt refuses) Fistula LUE GERD (gastroesophageal reflux disease) Hypothyroidism Limb alert care status LUE Morbid obesity with BMI of 40.0-44.9, adult Obstructive sleep apnea [id number] On home oxygen therapy 2L n/c with cpap at Osteoarthritis Peripheral arterial disease Peripheral neuropathy bilt legs/feet Secondary hyperparathyroidism of renal origin Tremor Unable to ambulate khadar lift Wounds, multiple x 2 LUE, left ankle, multiple toes left side -- wound clinic pt Surgical History History of bilateral cataract extraction History of cardiac cath 01/2018 "about 2-3 weeks"; no stents placed @ [facility] by Dr. Coronel History of carpal tunnel release R wrist History of colonoscopy History of esophagogastroduodenoscopy (EGD) History of repair of anterior cruciate ligament of left knee History of repair of anterior cruciate ligament of right knee History of tonsillectomy History of tooth extraction wisdom teeth Family History Mother Family history of diabetes mellitus Grandmother Family history of diabetes mellitus maternal Other Colorectal cancer Inflammatory bowel disease Melanoma Social History Smoking Status: Current every day smoker Tobacco Type: Cigarettes Age Started Using Tobacco: 15; Cigarettes Per Day: 1 ppd; Second Hand Exposure: Yes (as a child); Hx Alcohol Use: Yes Alcohol type: beer Hx Substance Use: No Preferred Language: Urdu Communication Ability: Effective Rental Representative Required: No Beliefs That Will Affect Care: None marital status: Single Current Living Situation: Family Current Living Situation Comment: pt lives with son current occupational status: retired How many Children do You have: 2 Feels Safe at Home: Yes Seatbelt Use: always Assistive Devices: CPAP, Oxygen - Continuous and Wheelchair Review of Systems Review of Systems: All systems reviewed & are unremarkable except as noted in HPI & below Physical Exam Physical Exam: General: patient ill in appearance, somnolent but arousable, answers questions appropriately and follows commands Skin: surgical site on left 2nd and 3rd toe with sutures in place, scabbing, no erythema/drainage/edema. Ulcer left ankle HEENT: NC/AT, PERRL, EOMI, anicteric sclera, conjunctiva without injection, external ear normal to inspection and nontender, nares patent, moist mucus membranes, dentition intact, no oropharyngeal lesions, neck supple, trachea midline, no LAD, no thyromegaly, no JVD Heart: +S1/S2, regular, no m/r/g Lungs: equal air entry bilaterally, crackles in bilateral bases Abd: +BS, soft, mildly tender diffusely with deep palpation, no rebound/guarding/peritoneal signs, no masses/organomegaly/ascites Ext: warm, 2+ pulses in UE/LE bilaterally, s/p amputation 2nd and 3rd digits of left foot, LUE AV fistula with palpable thrill Neuro: nonfocal, patient AA&O x 4, speech intact, no facial droop, moving all extremities on command with equal strength 5/5 Results & Data Results & [facility] Vital Signs (Past 12 Hours) Vital Signs Temp Pulse Resp BP Pulse Ox 06/23/21 19:01 139/61 06/23/21 18:51 63 18 100 06/23/21 18:46 62 19 100 06/23/21 18:10 61 20 100 06/23/21 18:00 60 20 131/59 L 100 06/23/21 17:45 63 20 100 06/23/21 17:30 64 20 148/60 H 100 06/23/21 17:25 37.4 C 06/23/21 17:24 65 20 151/77 H 100 06/23/21 17:18 100 06/23/21 16:50 69 24 100 06/23/21 16:45 71 24 100 06/23/21 16:40 70 25 H 100 06/23/21 16:38 72 26 H 06/23/21 16:35 70 26 H 100 06/23/21 16:30 72 26 H 100 06/23/21 16:29 72 25 H 06/23/21 16:00 25 H 96 06/23/21 15:58 38.2 C H 72 26 H 183/85 H 81 L Laboratory Results Laboratory Results WBC 17.54 K/uL (4.8-10.8) H 06/23/21 16:43 RBC 3.70 M/uL (4.7-6.1) L 06/23/21 16:43 Hgb 12.5 g/dL (14.0-18.0) L 06/23/21 16:43 POC Hgb 13.3 g/dl (14.0-18.0) L 06/23/21 16:48 Hct 37.1 % (42-52) L 06/23/21 16:43 POC Hct 39 % (42-52) L 06/23/21 16:48 MCV 100.3 fL (80-100) H 06/23/21 16:43 MCH 33.8 pg (25-34) 06/23/21 16:43 MCHC 33.7 g/dL (32-36) 06/23/21 16:43 RDW Std Deviation 49.3 fL (36.4-46.3) H 06/23/21 16:43 RDW Coeff of Jorge A 13.5 % (11.5-14.5) 06/23/21 16:43 Plt Count 282 K/uL (130-400) 06/23/21 16:43 MPV 10.1 fL (7.4-10.4) 06/23/21 16:43 Immature Gran % (Auto) 0.7 % 06/23/21 16:43 Neut % (Auto) 83.8 % 06/23/21 16:43 Lymph % (Auto) 10.0 % 06/23/21 16:43 Prentiss % (Auto) 4.2 % 06/23/21 16:43 Eos % (Auto) 1.0 % 06/23/21 16:43 Baso % (Auto) 0.3 % 06/23/21 16:43 Neut # (Auto) 14.70 K/uL (1.4-6.5) H 06/23/21 16:43 Lymph # (Auto) 1.75 K/uL (1.2-3.4) 06/23/21 16:43 Prentiss # (Auto) 0.73 K/uL (0.11-0.59) H 06/23/21 16:43 Eos # (Auto) 0.18 K/uL (0-0.5) 06/23/21 16:43 Baso # (Auto) 0.05 K/uL (0-0.2) 06/23/21 16:43 Immature Gran # (Auto) 0.13 K/uL (0.00-0.02) H 06/23/21 16:43 ESR 90 mm/hr (0-20) H 06/23/21 16:35 PT 13.9 Seconds (9.0-12.0) H 06/23/21 16:43 INR 1.3 (0.9-1.1) H 06/23/21 16:43 APTT 29.9 Seconds (21.0-31.0) 06/23/21 16:43 PTT Ratio 1.1 06/23/21 16:43 VBG pH 7.38 (7.36-7.41) 06/23/21 16:43 VBG pCO2 53 mmHg (38-50) H 06/23/21 16:43 VBG pO2 33 mmHg 06/23/21 16:43 VBG HCO3 31 mmol/L 06/23/21 16:43 VBG O2 Saturation < 60.0 % 06/23/21 16:43 VBG Base Excess 4.8 mEq/L 06/23/21 16:43 Barometric Pressure 736.1 mm/Hg 06/23/21 16:43 POC Sodium 133 mmol/L (135-144) L 06/23/21 16:48 Sodium 134 mmol/L (136-145) L 06/23/21 16:43 POC Potassium 5.1 mmol/L (3.3-5.0) H 06/23/21 16:48 Potassium 5.2 mmol/L (3.5-5.1) H 06/23/21 16:43 POC Chloride 92 mmol/L (101-112) L 06/23/21 16:48 Chloride 89 mmol/L (98-107) L 06/23/21 16:43 Carbon Dioxide 29 mmol/L (21-32) 06/23/21 16:43 POC Total CO2 32 mmol/L (24-31) H 06/23/21 16:48 Anion Gap 16 (3-11) H 06/23/21 16:43 POC Anion Gap 16.0 mmol/L (16-25) 06/23/21 16:48 POC BUN 50 mg/dl (7-18) H 06/23/21 16:48 BUN 52 mg/dl (6-23) H 06/23/21 16:43 Creatinine 10.72 mg/dl (0.6-1.4) H* 06/23/21 16:43 POC Creatinine 11.6 mg/dl (0.6-1.3) H* 06/23/21 16:48 Est Cr Clr Drug Dosing 9.3 ml/min 06/23/21 16:43 Est GFR ( Amer) 5.1 ml/min 06/23/21 16:43 Est GFR (Non-Af Amer) 4.4 ml/min 06/23/21 16:43 BUN/Creatinine Ratio 4.9 (10-20) L 06/23/21 16:43 Glucose 133 mg/dl (70-99(Fasting)) H 06/23/21 16:43 POC Glucose (other) 134 mg/dl (70-99) H 06/23/21 16:48 Lactate 0.6 mmol/L (0.4-2.0) 06/23/21 16:43 Calcium 9.7 mg/dl (8.5-10.1) 06/23/21 16:43 POC Ioniz Calcium Alessandro 1.08 mmol/l (1.12-1.32) L 06/23/21 16:48 Total Bilirubin 0.7 mg/dl (0.2-1.0) 06/23/21 16:43 Direct Bilirubin 0.2 mg/dl (0-0.2) 06/23/21 16:43 AST 12 U/L (13-39) L 06/23/21 16:43 ALT 3 U/L (7-52) L 06/23/21 16:43 Alkaline Phosphatase 78 U/L (34-104) 06/23/21 16:43 Troponin I 0.05 ng/ml (0-0.04) H* 06/23/21 16:43 B-Natriuretic Peptide 1121 pg/ml (0-100) H 06/23/21 16:35 Total Protein 8.3 gm/dl (6.0-8.3) 06/23/21 16:43 Albumin 4.2 gm/dl (3.4-5.0) 06/23/21 16:43 Lipase 29 U/L (11-82) 06/23/21 16:43 SARS-CoV-2 (PCR) NEGATIVE (Negative) 06/23/21 16:42 Influenza Type A (PCR) Negative (Neg) 06/23/21 16:42 Influenza Type B (PCR) Negative (Neg) 06/23/21 16:42 RSV (RT-PCR) Negative (Neg) 06/23/21 16:42 Impressions Abdomen/Pelvis CT 06/23/21 16:[address] WITH IV CONTRAST CT DOSE: HISTORY: Generalized abdominal pain. Nausea. Vomiting. TECHNIQUE: Multiaxial CT images of the abdomen and pelvis were performed following the use of intravenous contrast. A dose lowering technique was utilized adhering to the principles of ALARA. COMPARISON STUDY: Abdomen and pelvis CTA 05/14/2021. FINDINGS: Please refer to same day chest CT for further evaluation of the lung bases. Suboptimal evaluation of the left side of the abdomen due to artifact from the patient's left abdominal wall abutting the gantry. This also results in streak artifact throughout the abdomen and pelvis. No pneumoperitoneum. No pneumatosis. No fractures within the visualized osseous structures. Small fat- containing umbilical hernia. There are few punctate gallstones. The gallbladder is mildly distended. No gallbladder wall thickening. The liver, spleen, adrenal glands, and pancreas are unremarkable. Stable bilateral renal hypodense lesions. These likely represent cysts. Stable calcifications within the kidneys the majority of which appear to be vascular. No ureteral stones. No hydronephrosis no retroperitoneal hematoma or lymphadenopathy. Normal caliber abdominal aorta with mild calcified plaque. Bladder wall thickening is likely due to underdistention. The prostate gland is mildly enlarged. A few colonic diverticula. No evidence for acute diverticulitis. Moderate well-formed stool seen throughout the colon. No bowel wall thickening or obstruction. Normal appendix. IMPRESSION: 1. No bowel wall thickening or obstruction. 2. Normal appendix. 3. A few punctate gallstones. The gallbladder is mildly distended. However, no gallbladder wall thickening. 4. Additional findings as described above. ACT 112: Negative or not required by law. Electronically signed by: Leopoldo Lucero M.D. 06/23/2021 5:29 PM Chest CTA 06/23/21 16:26 CHEST CTA for PULMONARY ARTERIES CT DOSE: HISTORY: Shortness of breath. Recent surgery. TECHNIQUE: Multiaxial CT images of the chest were performed following the intravenous administration of contrast to evaluate the pulmonary arteries. Maximal intensity projection images were also obtained. A dose lowering technique was utilized adhering to the principles of ALARA. COMPARISON STUDY: Chest CTA 05/14/2021. FINDINGS: Normal caliber thoracic aorta with no evidence for dissection. The heart is mildly enlarged. No pleural or pericardial effusions. Suboptimal evaluation of the segmental and subsegmental pulmonary arteries due to the streak artifact from the patient's body abutting the left-sided gantry. However, no definite filling defects within the pulmonary arteries to suggest a pulmonary embolus. Stable prominent paratracheal lymph nodes. No hilar lymphadenopathy. No fractures within the visualized osseous structures. No pneumothorax. The central airways are patent. Rounded areas consolidation within the base of the left lower lobe and lingula remain unchanged. This favors round atelectasis. Additional area of consolidation within the right lower lobe posteriorly also favors atelectasis. Groundglass densities within the upper lung zones are nonspecific but could be due to air-trapping given the poor inspiratory effort. IMPRESSION: 1. No definite evidence for pulmonary embolus. 2. Stable cardiomegaly. 3. Focal airspace consolidation within the base of the lingula and left lower lobe persist and favor round atelectasis. There is also a patchy area of consolidation within the right lower lobe posteriorly also favoring atelectasis. 4. Groundglass densities within the upper lung zones are nonspecific but favor air trapping from the poor inspiratory effort. ACT 112: Negative or not required by law. Electronically signed by: Leopoldo Lucero M.D. 06/23/2021 5:22 PM Chest X-Ray 06/23/21 16:26 XR chest 1V portable CLINICAL HISTORY: sob TECHNIQUE: Single frontal radiograph of the chest was obtained. Comparison: Comparison is made to chest one view 04/04/2021 FINDINGS: No lines and tubes are seen. Cardiomegaly is noted. There is prominence and cephalization of the vasculature with Mic B lines seen. No pneumothorax is seen, pleural effusions cannot be excluded. IMPRESSION: Cardiomegaly and mild pulmonary edema. Small bilateral pleural effusions cannot be excluded. ACT 112: Negative or not required by law. Electronically signed by: Kishan Burns M.D. 06/23/2021 4:[address] 06/23/21 16:[address] DOSE: 3965.18 mGy.cm HISTORY: Altered mental status. TECHNIQUE: Multiaxial CT images of the head were performed without the use of intravenous contrast. Automated exposure control was utilized for this study. A dose lowering technique was utilized adhering to the principles of ALARA. Comparison: Head CT 05/12/2021. Findings: Mild mucosal thickening within the sphenoid sinuses. The mastoid air cells are clear. No fluid levels within the paranasal sinuses. The calvarium and skull base are intact. There is no mass, hematoma, midline shift, acute infarct. White matter hypodensity is nonspecific but suggestive of microvascular ischemic change. The ventricles and sulci demonstrate mild age-related involutional changes. Impression: No significant change compared to the prior study. No acute intracranial abnormality. ACT 112: Negative or not required by law. Electronically signed by: Leopoldo Lucero M.D. 06/23/2021 6:00 PM Foot X-Ray 06/23/21 17:23 XR foot LT 2V CLINICAL HISTORY: post op fever COMPARISON STUDY: Left foot 05/13/2021. FINDINGS: Status post partial amputation of the second and third toes. Mild soft tissue swelling within the forefoot/toes. No soft tissue gas identified. No fracture or dislocation within the left foot. Plantar and posterior calcaneal spurs are noted. IMPRESSION: 1. Status post partial amputation of the second and third toes. 2. Mild soft tissue swelling within the left forefoot/toes. ACT 112: Negative or not required by law. Electronically signed by: Leopoldo Lucero M.D. 06/23/2021 6:05 PM ECG Additional Comments: EKG wtih SR at 71, 1st degree AV block with HK=270, QRS=94, PZg=132, no acute ischemic changes, no changes of hyperkalemia present Code Status & VTE Plan VTE Prophylaxis Plan VTE Prophylaxis will be ordered: Yes PG Care Time/CCT Total # of Minutes Spent Total Time Spent with Patient: Total time spent is greater than 50% in coordination of care (as documented) at patient's floor/unit and/or counseling patient: Coding Level of Care Code 05849 Initial Inpt Care Lvl 3 Diagnoses Hypoxia R09.02 Fever R50.9 Fever type: unspecified ESRD (end stage renal disease) N18.6 Diabetes mellitus E11.69; Z79.4 Diabetes mellitus complication status: with other specified complication 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: with equipment operator intermodal yard use Diabetes mellitus type: type 2 Hypothyroidism E03.9 Hypothyroidism type: unspecified Hypertension I10 Hypertension type: essential hypertension Depression F32.9 Depression Type: unspecified GERD (gastroesophageal reflux disease) K21.9 Peripheral arterial disease I73.9 (1) Fever Fever type: unspecified Qualified Code(s): R50.9 - Fever, unspecified (2) Diabetes mellitus Diabetes mellitus complication status: with other specified complication 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
[2021-06-23] MEDS ORDERED: busPIRone 5 MG TAB PO ONE (20:01)
[2021-06-23] MEDS ORDERED: ASPIRIN 81 MG ECTAB PO ONE (20:01)
--- NOTE | 2021-06-23 20:52 | Nephrology Progress Note ---
Date of Service June 23, 2021 Subjective I received a call from Dr. Marquis this evening regarding Mr. Patiño. He explained Mr. Patiño's condition and told me that he did not feel that Mr. Patiño required hemodialysis urgently tonight. I explained to Dr. Marquis that all I could say regarding hemodialysis over the phone is that it is not available overnight. Dr. Marquis reiterated that he did not feel that Mr. Patiño required urgent dialysis and explained his reasoning. I cannot render an opinion on the need for urgent dialysis without personally evaluating the patient. I informed Dr. Marquis of this and told him that I would be able to provide dialysis at [facility] tomorrow. After reading the ER note this evening, I called Dr. Marquis back around 7 PM to explain why I did not think his description accurately reflected our conversation -- I have not evaluated Mr. Patiño this eveningand have only listened to what was comm unicated to me, I explained to him tiwce on the phone that I comment on need for emergent HD/UF. Results & Data ([facility]) Vital Signs (Past 12 Hours) Vital Signs Temp Pulse Resp BP Pulse Ox 06/23/21 20:10 63 21 148/68 H 100 06/23/21 19:55 61 20 100 06/23/21 19:49 61 19 100 06/23/21 19:33 60 22 100 06/23/21 19:18 60 20 100 06/23/21 19:04 62 17 100 06/23/21 19:01 139/61 06/23/21 18:51 63 18 100 06/23/21 18:46 62 19 100 06/23/21 18:10 61 20 100 06/23/21 18:00 60 20 131/59 L 100 06/23/21 17:45 63 20 100 06/23/21 17:30 64 20 148/60 H 100 06/23/21 17:25 37.4 C 06/23/21 17:24 65 20 151/77 H 100 06/23/21 17:18 100 06/23/21 16:50 69 24 100 06/23/21 16:45 71 24 100 06/23/21 16:40 70 25 H 100 06/23/21 16:38 72 26 H 06/23/21 16:35 70 26 H 100 06/23/21 16:30 72 26 H 100 03/22/22 16:29 72 25 H 06/23/21 16:00 25 H 96 06/23/21 15:58 38.2 C H 72 26 H 183/85 H 81 L PG Care Time/CCT Total # of Minutes Spent Total Time Spent with Patient: Total time spent is greater than 50% in coordination of care (as documented) at patient's floor/unit and/or counseling patient: Coding Level of Care Code None
[2021-06-23] MEDS ORDERED: ONDANSETRON INJ 2 MG/ML 2 ML VIAL ONE (21:29)
[2021-06-23] MEDS ORDERED: GLUCOSE 10 TABS/TUBE PO PRN (22:41)
[2021-06-23] MEDS ORDERED: GLUCAGON FOR INJ 1 MG VIAL SQ PRN (22:41)
[2021-06-23] MEDS ORDERED: CARBOHYDRATES FOR HYPOGLYCEMIA PO PRN (22:41)
[2021-06-23] MEDS ORDERED: ACETAMINOPHEN 325 MG TAB PO PRN (22:41)
[2021-06-23] MEDS ORDERED: VANCOMYCIN HCL 1,000 MG in SODIUM CHLORIDE 0.9% 250 ML IV SCH (22:41)
[2021-06-23] MEDS ORDERED: NYSTATIN POWDER 15GM BTL EXT PRN (22:41)
[2021-06-23] MEDS ORDERED: DEXTROSE 50% 50 ML SYRINGE IV PRN (22:41)
[2021-06-23] MEDS ORDERED: GLUCOSE 40% GEL 15 GM TUBE PO PRN (22:41)
[2021-06-23] MEDS ORDERED: ONDANSETRON INJ 2 MG/ML 2 ML VIAL IV PRN (22:41)
[2021-06-23] MEDS: amLODIPine BESYLATE 5 MG TAB PO SCH (23:19)
[2021-06-23] MEDS: SIMVASTATIN 20 MG TAB PO SCH (23:20)
[2021-06-23] MEDS: GABAPENTIN 300 MG CAP PO SCH (23:20)
[2021-06-23] MEDS: HEPARIN SOD 5,000 UNIT/0.5 ML VIAL SQ SCH (23:34)
[2021-06-23] MEDS: INSULIN GLARGINE SOLOSTAR 100 UNITS/ML 3 ML PEN SC SCH (23:35)
[2021-06-23] MEDS: INSULIN ASPART PER UNIT SC SCH (23:37)
[2021-06-24] MEDS: HEPARIN SOD 5,000 UNIT/0.5 ML VIAL SQ SCH ×3 (05:41→20:06)
[2021-06-24] MEDS: LEVOTHYROXINE SODIUM 125 MCG TABLET PO SCH (05:47)
[2021-06-24 06:26] LABS: Basophils # (auto) 0.03 K/uL (0-0.2); Basophils % (auto) 0.2 %; Eosinophils # (auto) 0.16 K/uL (0-0.5); Hematocrit (blood only) 31.9 % (42-52); Hemoglobin 10.4 g/dL (14.0-18.0); Immature Granulocytes # (auto) 0.06 K/uL (0.00-0.02); Immature Granulocytes % (auto) 0.4 %; Lymphocytes # (auto) 1.48 K/uL (1.2-3.4); Lymphocytes % (auto) 9.3 %; Mean Corpuscular Hemoglobin 32.7 pg (25-34); Mean Corpuscular Hgb Conc 32.6 g/dL (32-36); Mean Corpuscular Volume 100.3 fL (80-100); Mean Platelet Volume 9.8 fL (7.4-10.4); Monocytes # (auto) 0.88 K/uL (0.11-0.59); Monocytes % (auto) 5.5 %; Neutrophils # (auto) 13.25 K/uL (1.4-6.5); Neutrophils % (auto) 83.6 %; Platelet Count 227 K/uL (130-400); RDW Coefficient of Variation 13.4 % (11.5-14.5); RDW Standard Deviation 48.5 fL (36.4-46.3); Red Blood Count 3.18 M/uL (4.7-6.1); White Blood Count 15.86 K/uL (4.8-10.8)
[2021-06-24 06:47] LABS: Troponin I 0.04 ng/ml (0-0.04)
[2021-06-24 07:15] LABS: BUN Creatinine Ratio 5.4 (10-20); Calcium 9.2 mg/dl (8.5-10.1); Est GFR (African American) 4.9 ml/min; Est GFR (Non-African American) 4.2 ml/min; Potassium 5.2 mmol/L (3.5-5.1)
[2021-06-24] MEDS: INSULIN ASPART PER UNIT SC SCH ×5 (08:13→20:14)
[2021-06-24] MEDS ORDERED: HEPARIN SOD (PORCINE) 1000 UNIT/ML IV SCH (08:30)
[2021-06-24] MEDS: busPIRone 5 MG TAB PO SCH ×2 (09:04→20:05)
[2021-06-24] MEDS: carvediloL 12.5 MG TAB PO SCH ×2 (09:04→17:32)
[2021-06-24] MEDS: SEVELAMER HCL 800 MG TABLET PO SCH ×3 (09:04→17:30)
[2021-06-24] MEDS: COLLAGENASE OINT 30 GM TUBE TOP SCH (09:05)
[2021-06-24] MEDS: ESCITALOPRAM OXALATE 10 MG TAB PO SCH (09:05)
[2021-06-24] MEDS: PANTOprazole 40 MG TAB PO SCH (09:06)
[2021-06-24] MEDS: LOSARTAN POTASSIUM 50 MG TAB PO SCH (09:06)
[2021-06-24] MEDS: FUROSEMIDE 80 MG TAB PO SCH ×2 (09:06→17:31)
[2021-06-24] MEDS: FLUTICASONE PROPIONATE NA SPR 16 GM BTL SCH (09:07)
[2021-06-24] MEDS: ASPIRIN 81 MG CHEW PO SCH ×2 (09:13→20:10)
[2021-06-24] MEDS: INSULIN GLARGINE SOLOSTAR 100 UNITS/ML 3 ML PEN SC SCH ×2 (09:15→20:15)
--- NOTE | 2021-06-24 11:29 | Orthopedic Consultation ---
Date of Consultation June 24, 2021 Assessment & Plan (1) Amputation of one or more toes: Patient is status post left second and third toe amputations with Dr. Vela on June 16, 2021. He is doing fairly well with regards to his foot. There is no evidence today of infection. New dressings were applied to his left foot. Wound care nurses can continue to address the lateral ankle wound. Would recommend continued elevation of his left foot. He can be out of bed for transfers with a postop shoe on when he is out of bed. Can reinforce and redress the left foot as needed. No plans or needs for any type of surgical intervention at this time. foot is not a source of infection at this time. He recently finished up oral Keflex and doxycycline. He will follow-up with Dr. Vela as an outpatient next Tuesday if he is not still an inpatient. Please call us with any increased problems such as wound drainage, fevers, swelling of his left foot. Thank you for this consultation. History of Present Illness Reason for Consultation: Status post left foot second and third toe amputation Attending Physician: Van Crowley History of Present Illness It was made known to Dr. Vela that patient was admitted by the wound care nurse. Patient is status post a left foot second and third toe amputation. He was admitted yesterday to the ICU with a fever and having missed dialysis. He was seen in dialysis this morning. He is very groggy but is arousable. He is awake and alert when he is aroused. Left foot dressings were removed. He denies any issues with his left foot. States that he has been keeping it elevated. Allergies Allergy/AdvReac Type Severity Reaction Status Date / Time lactose Allergy Intermediate Gastrointestinal Verified 06/23/21 17:00 Upset Home Medications Medication Instructions Recorded Confirmed Type amlodipine 10 mg tablet 10 mg PO HS #90 tab 06/26/20 06/23/21 Rx aspirin 81 mg chewable tablet 81 mg PO HS #90 tab 06/26/20 06/23/21 Rx gabapentin 100 mg capsule 300 mg PO HS #270 cap 06/26/20 06/23/21 Rx nitroglycerin 0.4 mg sublingual 0.4 mg SUBLINGUAL DIRECTED PRN 07/11/20 06/23/21 History tablet insulin glargine 100 unit/mL See Rx Instructions .ROUTE .COMPLEX 01/05/21 06/23/21 History subcutaneous solution (Lantus U-100 Insulin) loperamide 2 mg capsule (Imodium 2 mg PO DIRECTED PRN 01/05/21 06/23/21 History A-D) HYDRAULIC KHADAR LIFT #1 ea 01/26/21 06/08/21 Rx FreeStyle Virgil 14 Day Sensor #6 ea NS 02/24/21 06/08/21 Rx (flash glucose sensor) FreeStyle Virgil 14 Day [place] #1 ea NS 03/08/21 06/08/21 Rx (flash glucose scanning reader) nystatin 100,000 unit/gram topical 1 applic TOPICAL BID PRN 04/04/21 06/23/21 History powder sevelamer carbonate 800 mg tablet 2,400 mg PO TIDM 04/04/21 06/23/21 History buspirone 10 mg tablet 10 mg PO BID 05/09/21 06/23/21 History escitalopram oxalate 10 mg tablet 10 mg PO QAM 05/09/21 06/23/21 History losartan 50 mg tablet 50 mg PO QAM 05/09/21 06/23/21 History simvastatin 20 mg tablet 20 mg PO HS 05/12/21 06/23/21 History collagenase clostridium histo. 250 1 applic TOPICAL DAILY 14 Days #30 05/22/21 06/23/21 Rx unit/gram topical ointment (Santyl) g furosemide 80 mg tablet (Lasix) 80 mg PO BID #180 tab 06/08/21 06/23/21 Rx carvedilol 12.5 mg tablet 12.5 mg PO BID 06/11/21 06/23/21 History levothyroxine 125 mcg tablet 125 mcg PO QAM 06/11/21 06/23/21 History omeprazole 20 mg capsule,delayed 20 mg PO QAM 06/11/21 06/23/21 History release fluticasone propionate 50 2 spray INTRANASAL DAILY #16 g 06/22/21 06/23/21 Rx mcg/actuation nasal spray,suspension Patient History Medical History Anemia in chronic kidney disease Anxiety Bedbound Depression DM type 2 (diabetes mellitus, type 2) Dyslipidemia Dysphagia ESRD (end stage renal disease) on dialysis started in 2019 - [facility], [place] - [facility] in [place]. (per sister, repairer screen crusher recommends 5xwk but pt refuses) Fistula LUE GERD (gastroesophageal reflux disease) Hypothyroidism Limb alert care status LUE Morbid obesity with BMI of 40.0-44.9, adult Obstructive sleep apnea [id number] On home oxygen therapy 2L n/c with cpap at HS Osteoarthritis Peripheral arterial disease Peripheral neuropathy bilt legs/feet Secondary hyperparathyroidism of renal origin Tremor Unable to ambulate khadar lift Wounds, multiple x 2 LUE, left ankle, multiple toes left side -- wound clinic pt Surgical History History of bilateral cataract extraction History of cardiac cath 01/2018 "about 2-3 weeks"; no stents placed @ [facility] by Dr. Coronel History of carpal tunnel release R wrist History of colonoscopy History of esophagogastroduodenoscopy (EGD) History of repair of anterior cruciate ligament of left knee History of repair of anterior cruciate ligament of right knee History of tonsillectomy History of tooth extraction wisdom teeth Family History Mother Family history of diabetes mellitus Grandmother Family history of diabetes mellitus maternal Other Colorectal cancer Inflammatory bowel disease Melanoma Social History Smoking Status: Current every day smoker Tobacco Type: Cigarettes Age Started Using Tobacco: 15; Cigarettes Per Day: 1 ppd; Second Hand Exposure: Yes (as a child); Hx Alcohol Use: Yes Alcohol type: beer Hx Substance Use: No Preferred Language: Turkmen Communication Ability: Effective Computer Publisher Required: No Beliefs That Will Affect Care: None marital status: Single Current Living Situation: Family Current Living Situation Comment: pt lives with son current occupational status: retired How many Children do You have: 2 Feels Safe at Home: Yes Seatbelt Use: always Assistive Devices: CPAP, Oxygen - Continuous and Wheelchair Physical Exam Musculoskeletal: Exam of his left foot: Incisions left second and third toes are clean, dry and intact. There is some dried bloody drainage in place. Minimal erythema. No edema to his left foot. Sutures are retained. Skin edges are well approximated. No fluctuance. Nontender to palpation but this is normal due to his peripheral neuropathy. Skin is otherwise healthy. Optifoam removed from the lateral aspect of his left ankle with healing wound. Aquacel Ag and Optifoam reapplied to left lateral wound. Dry dressings were also reapplied to his left foot. Waffle boot was reapplied. Results & Data ([facility]) Vital Signs (Past 12 Hours) Vital Signs Temp Pulse Pulse Resp BP BP Pulse Ox 06/24/21 11:00 60 135/77 06/24/21 10:40 63 141/67 H 06/24/21 10:20 64 153/73 H 06/24/21 10:00 64 154/76 H 06/24/21 09:42 63 164/75 H 06/24/21 07:14 66 06/24/21 06:07 36.9 C 64 74 16 157/70 H 135/46 L 97 06/24/21 05:08 62 18 175/72 H 99 06/24/21 02:02 142/77 H 06/24/21 01:45 59 L 20 98 06/24/21 01:30 56 L 15 95 06/24/21 01:15 54 L 18 97 06/24/21 01:09 06/24/21 01:01 15 124/75 96 06/24/21 00:45 58 L 18 99 06/24/21 00:31 62 19 100 06/24/21 00:15 59 L 20 100 06/24/21 00:03 59 L 19 155/78 H 99 06/23/21 23:32 60 18 99 Pulse Ox 06/24/21 11:00 06/24/21 10:40 06/24/21 10:20 06/24/21 10:00 06/24/21 09:42 06/24/21 07:14 06/24/21 06:07 06/24/21 05:08 06/24/21 02:02 06/24/21 01:45 06/24/21 01:30 06/24/21 01:15 06/24/21 01:09 95 06/24/21 01:01 06/24/21 00:45 06/24/21 00:31 06/24/21 00:15 06/24/21 00:03 06/23/21 23:32 Laboratory Results 06/24/21 06/24/21 06/24/21 Range/Units 07:42 06:23 05:57 WBC (4.8-10.8) K/uL RBC (4.7-6.1) M/uL Hgb (14.0-18.0) g/dL POC Hgb (14.0-18.0) g/dl Hct (42-52) % POC Hct (42-52) % MCV (80-100) fL MCH (25-34) pg MCHC (32-36) g/dL RDW Std Deviation (36.4-46.3) fL RDW Coeff of Jorge A (11.5-14.5) % Plt Count (130-400) K/uL MPV (7.4-10.4) fL Immature Gran % (Auto) % Neut % (Auto) % Lymph % (Auto) % [place] % (Auto) % Eos % (Auto) % Baso % (Auto) % Neut # (Auto) (1.4-6.5) K/uL Lymph # (Auto) (1.2-3.4) K/uL [place] # (Auto) (0.11-0.59) K/uL Eos # (Auto) (0-0.5) K/uL Baso # (Auto) (0-0.2) K/uL Immature Gran # (Auto) (0.00-0.02) K/uL ESR (0-20) mm/hr PT (9.0-12.0) Seconds INR (0.9-1.1) APTT (21.0-31.0) Seconds PTT Ratio VBG pH (7.36-7.41) VBG pCO2 (38-50) mmHg VBG pO2 mmHg VBG HCO3 mmol/L VBG O2 Saturation % VBG Base Excess mEq/L Barometric Pressure mm/Hg POC Sodium (135-144) mmol/L Sodium (136-145) mmol/L POC Potassium (3.3-5.0) mmol/L Potassium (3.5-5.1) mmol/L POC Chloride (101-112) mmol/L Chloride (98-107) mmol/L Carbon Dioxide (21-32) mmol/L POC Total CO2 (24-31) mmol/L Anion Gap (3-11) POC Anion Gap (16-25) mmol/L POC BUN (7-18) mg/dl BUN (6-23) mg/dl Creatinine (0.6-1.4) mg/dl POC Creatinine (0.6-1.3) mg/dl Est Cr Clr Drug Dosing ml/min Est GFR ( Amer) ml/min Est GFR (Non-Af Amer) ml/min BUN/Creatinine Ratio (10-20) Glucose (70-99(Fasting)) mg/dl POC Glucose 115 H (70-99) mg/dl POC Glucose (other) (70-99) mg/dl Lactate (0.4-2.0) mmol/L Calcium (8.5-10.1) mg/dl POC Ioniz Calcium Alessandro (1.12-1.32) mmol/l Total Bilirubin (0.2-1.0) mg/dl Direct Bilirubin (0-0.2) mg/dl AST (13-39) U/L ALT (7-52) U/L Alkaline Phosphatase (34-104) U/L Troponin I (0-0.04) ng/ml C-Reactive Protein (0-0.5) mg/dl B-Natriuretic Peptide (0-100) pg/ml Total Protein (6.0-8.3) gm/dl Albumin (3.4-5.0) gm/dl Lipase (11-82) U/L Procalcitonin (0-0.5) ng/ml TSH 0.962 (0.300-4.500) uIu/ml Nasal Screen MRSA (PCR) Pending Random Vancomycin (10-20) mcg/ml SARS-CoV-2 (PCR) (Negative) Influenza Type A (PCR) (Neg) Influenza Type B (PCR) (Neg) RSV (RT-PCR) (Neg) 06/24/21 06/24/21 06/24/21 Range/Units 05:57 05:57 05:57 WBC 15.86 H (4.8-10.8) K/uL RBC 3.18 L (4.7-6.1) M/uL Hgb 10.4 L (14.0-18.0) g/dL POC Hgb (14.0-18.0) g/dl Hct 31.9 L (42-52) % POC Hct (42-52) % MCV 100.3 H (80-100) fL MCH 32.7 (25-34) pg MCHC 32.6 (32-36) g/dL RDW Std Deviation 48.5 H (36.4-46.3) fL RDW Coeff of Jorge A 13.4 (11.5-14.5) % Plt Count 227 (130-400) K/uL MPV 9.8 (7.4-10.4) fL Immature Gran % (Auto) 0.4 % Neut % (Auto) 83.6 % Lymph % (Auto) 9.3 % [place] % (Auto) 5.5 % Eos % (Auto) 1.0 % Baso % (Auto) 0.2 % Neut # (Auto) 13.25 H (1.4-6.5) K/uL Lymph # (Auto) 1.48 (1.2-3.4) K/uL [place] # (Auto) 0.88 H (0.11-0.59) K/uL Eos # (Auto) 0.16 (0-0.5) K/uL Baso # (Auto) 0.03 (0-0.2) K/uL Immature Gran # (Auto) 0.06 H (0.00-0.02) K/uL ESR (0-20) mm/hr PT (9.0-12.0) Seconds INR (0.9-1.1) APTT (21.0-31.0) Seconds PTT Ratio VBG pH (7.36-7.41) VBG pCO2 (38-50) mmHg VBG pO2 mmHg VBG HCO3 mmol/L VBG O2 Saturation % VBG Base Excess mEq/L Barometric Pressure mm/Hg POC Sodium (135-144) mmol/L Sodium 133 L (136-145) mmol/L POC Potassium (3.3-5.0) mmol/L Potassium 5.2 H (3.5-5.1) mmol/L POC Chloride (101-112) mmol/L Chloride 91 L (98-107) mmol/L Carbon Dioxide 27 (21-32) mmol/L POC Total CO2 (24-31) mmol/L Anion Gap 15 H (3-11) POC Anion Gap (16-25) mmol/L POC BUN (7-18) mg/dl BUN 60 H (6-23) mg/dl Creatinine 11.20 H* D (0.6-1.4) mg/dl POC Creatinine (0.6-1.3) mg/dl Est Cr Clr Drug Dosing 9.0 ml/min Est GFR ( Amer) 4.9 ml/min Est GFR (Non-Af Amer) 4.2 ml/min BUN/Creatinine Ratio 5.4 L (10-20) Glucose 112 H (70-99(Fasting)) mg/dl POC Glucose (70-99) mg/dl POC Glucose (other) (70-99) mg/dl Lactate (0.4-2.0) mmol/L Calcium 9.2 (8.5-10.1) mg/dl POC Ioniz Calcium Alessandro (1.12-1.32) mmol/l Total Bilirubin (0.2-1.0) mg/dl Direct Bilirubin (0-0.2) mg/dl AST (13-39) U/L ALT (7-52) U/L Alkaline Phosphatase (34-104) U/L Troponin I 0.04 (0-0.04) ng/ml C-Reactive Protein (0-0.5) mg/dl B-Natriuretic Peptide (0-100) pg/ml Total Protein (6.0-8.3) gm/dl Albumin (3.4-5.0) gm/dl Lipase (11-82) U/L Procalcitonin (0-0.5) ng/ml TSH (0.300-4.500) uIu/ml Nasal Screen MRSA (PCR) Random Vancomycin 21.6 H (10-20) mcg/ml SARS-CoV-2 (PCR) (Negative) Influenza Type A (PCR) (Neg) Influenza Type B (PCR) (Neg) RSV (RT-PCR) (Neg) 06/23/21 06/23/21 06/23/21 Range/Units 23:29 16:48 16:43 WBC (4.8-10.8) K/uL RBC (4.7-6.1) M/uL Hgb (14.0-18.0) g/dL POC Hgb 13.3 L (14.0-18.0) g/dl Hct (42-52) % POC Hct 39 L (42-52) % MCV (80-100) fL MCH (25-34) pg MCHC (32-36) g/dL RDW Std Deviation (36.4-46.3) fL RDW Coeff of Jorge A (11.5-14.5) % Plt Count (130-400) K/uL MPV (7.4-10.4) fL Immature Gran % (Auto) % Neut % (Auto) % Lymph % (Auto) % [place] % (Auto) % Eos % (Auto) % Baso % (Auto) % Neut # (Auto) (1.4-6.5) K/uL Lymph # (Auto) (1.2-3.4) K/uL [place] # (Auto) (0.11-0.59) K/uL Eos # (Auto) (0-0.5) K/uL Baso # (Auto) (0-0.2) K/uL Immature Gran # (Auto) (0.00-0.02) K/uL ESR (0-20) mm/hr PT (9.0-12.0) Seconds INR (0.9-1.1) APTT (21.0-31.0) Seconds PTT Ratio VBG pH (7.36-7.41) VBG pCO2 (38-50) mmHg VBG pO2 mmHg VBG HCO3 mmol/L VBG O2 Saturation % VBG Base Excess mEq/L Barometric Pressure mm/Hg POC Sodium 133 L (135-144) mmol/L Sodium (136-145) mmol/L POC Potassium 5.1 H (3.3-5.0) mmol/L Potassium (3.5-5.1) mmol/L POC Chloride 92 L (101-112) mmol/L Chloride (98-107) mmol/L Carbon Dioxide (21-32) mmol/L POC Total CO2 32 H (24-31) mmol/L Anion Gap (3-11) POC Anion Gap 16.0 (16-25) mmol/L POC BUN 50 H (7-18) mg/dl BUN (6-23) mg/dl Creatinine (0.6-1.4) mg/dl POC Creatinine 11.6 H* (0.6-1.3) mg/dl Est Cr Clr Drug Dosing ml/min Est GFR ( Amer) ml/min Est GFR (Non-Af Amer) ml/min BUN/Creatinine Ratio (10-20) Glucose (70-99(Fasting)) mg/dl POC Glucose 105 H (70-99) mg/dl POC Glucose (other) 134 H (70-99) mg/dl Lactate 0.6 (0.4-2.0) mmol/L Calcium (8.5-10.1) mg/dl POC Ioniz Calcium Alessandro 1.08 L (1.12-1.32) mmol/l Total Bilirubin (0.2-1.0) mg/dl Direct Bilirubin (0-0.2) mg/dl AST (13-39) U/L ALT (7-52) U/L Alkaline Phosphatase (34-104) U/L Troponin I (0-0.04) ng/ml C-Reactive Protein (0-0.5) mg/dl B-Natriuretic Peptide (0-100) pg/ml Total Protein (6.0-8.3) gm/dl Albumin (3.4-5.0) gm/dl Lipase (11-82) U/L Procalcitonin (0-0.5) ng/ml TSH (0.300-4.500) uIu/ml Nasal Screen MRSA (PCR) Random Vancomycin (10-20) mcg/ml SARS-CoV-2 (PCR) (Negative) Influenza Type A (PCR) (Neg) Influenza Type B (PCR) (Neg) RSV (RT-PCR) (Neg) 06/23/21 06/23/21 06/23/21 Range/Units 16:43 16:43 16:43 WBC (4.8-10.8) K/uL RBC (4.7-6.1) M/uL Hgb (14.0-18.0) g/dL POC Hgb (14.0-18.0) g/dl Hct (42-52) % POC Hct (42-52) % MCV (80-100) fL MCH (25-34) pg MCHC (32-36) g/dL RDW Std Deviation (36.4-46.3) fL RDW Coeff of Jorge A (11.5-14.5) % Plt Count (130-400) K/uL MPV (7.4-10.4) fL Immature Gran % (Auto) % Neut % (Auto) % Lymph % (Auto) % [place] % (Auto) % Eos % (Auto) % Baso % (Auto) % Neut # (Auto) (1.4-6.5) K/uL Lymph # (Auto) (1.2-3.4) K/uL [place] # (Auto) (0.11-0.59) K/uL Eos # (Auto) (0-0.5) K/uL Baso # (Auto) (0-0.2) K/uL Immature Gran # (Auto) (0.00-0.02) K/uL ESR (0-20) mm/hr PT 13.9 H (9.0-12.0) Seconds INR 1.3 H (0.9-1.1) APTT 29.9 (21.0-31.0) Seconds PTT Ratio 1.1 VBG pH 7.38 (7.36-7.41) VBG pCO2 53 H (38-50) mmHg VBG pO2 33 mmHg VBG HCO3 31 mmol/L VBG O2 Saturation < 60.0 % VBG Base Excess 4.8 mEq/L Barometric Pressure 736.1 mm/Hg POC Sodium (135-144) mmol/L Sodium 134 L (136-145) mmol/L POC Potassium (3.3-5.0) mmol/L Potassium 5.2 H (3.5-5.1) mmol/L POC Chloride (101-112) mmol/L Chloride 89 L (98-107) mmol/L Carbon Dioxide 29 (21-32) mmol/L POC Total CO2 (24-31) mmol/L Anion Gap 16 H (3-11) POC Anion Gap (16-25) mmol/L POC BUN (7-18) mg/dl BUN 52 H (6-23) mg/dl Creatinine 10.72 H* (0.6-1.4) mg/dl POC Creatinine (0.6-1.3) mg/dl Est Cr Clr Drug Dosing 9.3 ml/min Est GFR ( Amer) 5.1 ml/min Est GFR (Non-Af Amer) 4.4 ml/min BUN/Creatinine Ratio 4.9 L (10-20) Glucose 133 H (70-99(Fasting)) mg/dl POC Glucose (70-99) mg/dl POC Glucose (other) (70-99) mg/dl Lactate (0.4-2.0) mmol/L Calcium 9.7 (8.5-10.1) mg/dl POC Ioniz Calcium Alessandro (1.12-1.32) mmol/l Total Bilirubin 0.7 (0.2-1.0) mg/dl Direct Bilirubin 0.2 (0-0.2) mg/dl AST 12 L (13-39) U/L ALT 3 L (7-52) U/L Alkaline Phosphatase 78 (34-104) U/L Troponin I 0.05 H* (0-0.04) ng/ml C-Reactive Protein (0-0.5) mg/dl B-Natriuretic Peptide (0-100) pg/ml Total Protein 8.3 (6.0-8.3) gm/dl Albumin 4.2 (3.4-5.0) gm/dl Lipase 29 (11-82) U/L Procalcitonin (0-0.5) ng/ml TSH (0.300-4.500) uIu/ml Nasal Screen MRSA (PCR) Random Vancomycin (10-20) mcg/ml SARS-CoV-2 (PCR) (Negative) Influenza Type A (PCR) (Neg) Influenza Type B (PCR) (Neg) RSV (RT-PCR) (Neg) 06/23/21 06/23/21 06/23/21 Range/Units 16:43 16:42 16:35 WBC 17.54 H (4.8-10.8) K/uL RBC 3.70 L (4.7-6.1) M/uL Hgb 12.5 L (14.0-18.0) g/dL POC Hgb (14.0-18.0) g/dl Hct 37.1 L (42-52) % POC Hct (42-52) % MCV 100.3 H (80-100) fL MCH 33.8 (25-34) pg MCHC 33.7 (32-36) g/dL RDW Std Deviation 49.3 H (36.4-46.3) fL RDW Coeff of Jorge A 13.5 (11.5-14.5) % Plt Count 282 (130-400) K/uL MPV 10.1 (7.4-10.4) fL Immature Gran % (Auto) 0.7 % Neut % (Auto) 83.8 % Lymph % (Auto) 10.0 % [place] % (Auto) 4.2 % Eos % (Auto) 1.0 % Baso % (Auto) 0.3 % Neut # (Auto) 14.70 H (1.4-6.5) K/uL Lymph # (Auto) 1.75 (1.2-3.4) K/uL [place] # (Auto) 0.73 H (0.11-0.59) K/uL Eos # (Auto) 0.18 (0-0.5) K/uL Baso # (Auto) 0.05 (0-0.2) K/uL Immature Gran # (Auto) 0.13 H (0.00-0.02) K/uL ESR (0-20) mm/hr PT (9.0-12.0) Seconds INR (0.9-1.1) APTT (21.0-31.0) Seconds PTT Ratio VBG pH (7.36-7.41) VBG pCO2 (38-50) mmHg VBG pO2 mmHg VBG HCO3 mmol/L VBG O2 Saturation % VBG Base Excess mEq/L Barometric Pressure mm/Hg POC Sodium (135-144) mmol/L Sodium (136-145) mmol/L POC Potassium (3.3-5.0) mmol/L Potassium (3.5-5.1) mmol/L POC Chloride (101-112) mmol/L Chloride (98-107) mmol/L Carbon Dioxide (21-32) mmol/L POC Total CO2 (24-31) mmol/L Anion Gap (3-11) POC Anion Gap (16-25) mmol/L POC BUN (7-18) mg/dl BUN (6-23) mg/dl Creatinine (0.6-1.4) mg/dl POC Creatinine (0.6-1.3) mg/dl Est Cr Clr Drug Dosing ml/min Est GFR ( Amer) ml/min Est GFR (Non-Af Amer) ml/min BUN/Creatinine Ratio (10-20) Glucose (70-99(Fasting)) mg/dl POC Glucose (70-99) mg/dl POC Glucose (other) (70-99) mg/dl Lactate (0.4-2.0) mmol/L Calcium (8.5-10.1) mg/dl POC Ioniz Calcium Alessandro (1.12-1.32) mmol/l Total Bilirubin (0.2-1.0) mg/dl Direct Bilirubin (0-0.2) mg/dl AST (13-39) U/L ALT (7-52) U/L Alkaline Phosphatase (34-104) U/L Troponin I (0-0.04) ng/ml C-Reactive Protein (0-0.5) mg/dl B-Natriuretic Peptide (0-100) pg/ml Total Protein (6.0-8.3) gm/dl Albumin (3.4-5.0) gm/dl Lipase (11-82) U/L Procalcitonin 0.38 (0-0.5) ng/ml TSH (0.300-4.500) uIu/ml Nasal Screen MRSA (PCR) Random Vancomycin (10-20) mcg/ml SARS-CoV-2 (PCR) NEGATIVE (Negative) Influenza Type A (PCR) Negative (Neg) Influenza Type B (PCR) Negative (Neg) RSV (RT-PCR) Negative (Neg) 06/23/21 06/23/21 06/23/21 Range/Units 16:35 16:35 16:35 WBC (4.8-10.8) K/uL RBC (4.7-6.1) M/uL Hgb (14.0-18.0) g/dL POC Hgb (14.0-18.0) g/dl Hct (42-52) % POC Hct (42-52) % MCV (80-100) fL MCH (25-34) pg MCHC (32-36) g/dL RDW Std Deviation (36.4-46.3) fL RDW Coeff of Jorge A (11.5-14.5) % Plt Count (130-400) K/uL MPV (7.4-10.4) fL Immature Gran % (Auto) % Neut % (Auto) % Lymph % (Auto) % [place] % (Auto) % Eos % (Auto) % Baso % (Auto) % Neut # (Auto) (1.4-6.5) K/uL Lymph # (Auto) (1.2-3.4) K/uL [place] # (Auto) (0.11-0.59) K/uL Eos # (Auto) (0-0.5) K/uL Baso # (Auto) (0-0.2) K/uL Immature Gran # (Auto) (0.00-0.02) K/uL ESR 90 H (0-20) mm/hr PT (9.0-12.0) Seconds INR (0.9-1.1) APTT (21.0-31.0) Seconds PTT Ratio VBG pH (7.36-7.41) VBG pCO2 (38-50) mmHg VBG pO2 mmHg VBG HCO3 mmol/L VBG O2 Saturation % VBG Base Excess mEq/L Barometric Pressure mm/Hg POC Sodium (135-144) mmol/L Sodium (136-145) mmol/L POC Potassium (3.3-5.0) mmol/L Potassium (3.5-5.1) mmol/L POC Chloride (101-112) mmol/L Chloride (98-107) mmol/L Carbon Dioxide (21-32) mmol/L POC Total CO2 (24-31) mmol/L Anion Gap (3-11) POC Anion Gap (16-25) mmol/L POC BUN (7-18) mg/dl BUN (6-23) mg/dl Creatinine (0.6-1.4) mg/dl POC Creatinine (0.6-1.3) mg/dl Est Cr Clr Drug Dosing ml/min Est GFR ( Amer) ml/min Est GFR (Non-Af Amer) ml/min BUN/Creatinine Ratio (10-20) Glucose (70-99(Fasting)) mg/dl POC Glucose (70-99) mg/dl POC Glucose (other) (70-99) mg/dl Lactate (0.4-2.0) mmol/L Calcium (8.5-10.1) mg/dl POC Ioniz Calcium Alessandro (1.12-1.32) mmol/l Total Bilirubin (0.2-1.0) mg/dl Direct Bilirubin (0-0.2) mg/dl AST (13-39) U/L ALT (7-52) U/L Alkaline Phosphatase (34-104) U/L Troponin I (0-0.04) ng/ml C-Reactive Protein 12.58 H (0-0.5) mg/dl B-Natriuretic Peptide 1121 H (0-100) pg/ml Total Protein (6.0-8.3) gm/dl Albumin (3.4-5.0) gm/dl Lipase (11-82) U/L Procalcitonin (0-0.5) ng/ml TSH (0.300-4.500) uIu/ml Nasal Screen MRSA (PCR) Random Vancomycin (10-20) mcg/ml SARS-CoV-2 (PCR) (Negative) Influenza Type A (PCR) (Neg) Influenza Type B (PCR) (Neg) RSV (RT-PCR) (Neg)
--- NOTE | 2021-06-24 11:44 | Pharmacy Report ---
Pharmacy Vanc AUC Short Note - Date of Service June 24, 2021 - Assessment & Plan Assessment 66 year old M receiving vancomycin and cefepime empirically in setting of fever and hypoxia. Pt is ESRD on iHD (T,Th,Sat). Blood cultures pending. MRSA nasal pending. Day # 1 of antimicrobial therapy. Plan Vancomycin * AUC/ZOIE is the preferred PK/PD target for vancomycin, however due to ESRD requiring iHD, will dose vancomycin by levels * S/p vancomycin 2750mg IV X 1 loading dose last evening ~ 1900. Random level this AM, 21.6mcg/mL. Was not dialyzed yesterday, indicating some renal clearance. Does make some urine. * Will dose with 750mg IV X 1 post HD today given above in addition to BMI 45. * Random level ordered for: 06/24 AM to guide further dosing. Pharmacy will continue to follow and will adjust dose/frequency as necessary. Thank you.
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
[2021-06-24] MEDS ORDERED: VANCOMYCIN HCL 750 MG in SODIUM CHLORIDE 0.9% 250 ML IV ONE (13:00)
[2021-06-24] MEDS: HEPARIN SOD (PORCINE) 1000 UNIT/ML IV SCH (13:16)
--- NOTE | 2021-06-24 13:48 | Electrocardiogram Report ---
Test Reason : Blood Pressure : / mmHG Vent. Rate : 071 BPM Atrial Rate : 071 BPM P-R Int : 250 ms QRS Dur : 094 ms QT Int : 408 ms P-R-T Axes : 039 022 037 degrees QTc Int : 443 ms Sinus rhythm with 1st degree A-V block Low voltage QRS Poor R wave progression, consider anterior DE vs. lead placement vs. LVH Abnormal ECG When compared with ECG of 09-MAY-2021 15:42, No significant change was found Confirmed by Sahil Jimenez ([id number] on 06/24/2021 1:47:33 PM Referred By: REFERRED SELF Confirmed By:Reynold Jimenez
[2021-06-24] MEDS: CEFEPIME 500 MG in SYRINGE 0 ML IV SCH (17:30)
[2021-06-24] MEDS: GABAPENTIN 300 MG CAP PO SCH (20:06)
[2021-06-24] MEDS: SIMVASTATIN 20 MG TAB PO SCH (20:06)
[2021-06-24] MEDS: amLODIPine BESYLATE 5 MG TAB PO SCH (20:06)
--- NOTE | 2021-06-24 21:12 | Hospitalist Progress Note ---
Date of Service June 24, 2021 Assessment & Plan (1) Hypoxia: Plan: 66yo male with history of ESRD, HLP, DM, GERD presenting with feeling of illness, hypoxic on arrival now improved with use of CPAP. CXR with suggestion of volume overload - most likely secondary to missed HD, volume overload. Patient presently not in any respiratory distress. He is comfortable on CPAP, currently on 3 liters nasal cannula which is his baseline. Covid/Flu is Negative VBG largely unremarkable Imaging does not suggest PNA but does show atelectasis. -Admit to PCU -Continue CPAP qHS and as needed -Incentive spirometry q 2 hours while awake -Patient to have HD in AM (2) Fever: Plan: Patient febrile on arrival at 38.2. concern that infection may be coming from the foot. will consult ortho Recent amputation - surgical site does not appear acutely infected. - recent debridement as possible source -Follow cultures sent from ER -Empiric coverage with Vancomycin and Cefepime - appropriate dosing for ESRD/HD per pharmacy - appreciate assistance -Monitor wounds - wound care BID -Tylenol PRN (3) ESRD (end stage renal disease): Plan: Patient with ESRD on HD q T/R/Sat. He missed his HD treatment today - thinks he received a full treatment on Tuesday. Presently with normal pH of 7.38 on VBG, mild elevation of K at 5.2 without EKG changes. Patient is volume overloaded as described above. He was given Lasix in the ER and has produced a small amount of urine. Does not seem to require urgent dialysis at this time. -Admission with telemetry monitoring -Repeat chemistry in AM -May redose Lasix if patient becomes more hypoxic -Avoid nephrotoxic agents -Medication dosing for ESRD where appropriate -Continue Renagel -Nephrology consultation appreciated - will most likely receive HD in AM Of note - patient informed me that he finds HD extremely challenging and he became slightly frustrated when I explained to him that he will most likely receiving HD in the AM. He voiced to the ER nurse that he is not sure if he wants to continue receiving HD in the future. (4) Diabetes mellitus: Plan: Fairly well controlled with last [id number] on 06/16/21 -Lantus 7u BID with ISS -Goal blood sugar 100 - 140 -Continue Gabapentin 300mg po qHS (5) Hypothyroidism: Plan: Chronic. -Check TSH in AM -Continue Synthroid 125mcg po daily (6) Hypertension: Plan: Chronic. Blood pressure presently 147/73 -Continue Losartan 50mg po qAM -Continue Carvedilol -Continue Amlodipine 10mg po qHS -Continue to monitor (7) Depression: Plan: Chronic -Continue Escitalopram 10mg po qAM -Continue Buspirone (8) GERD (gastroesophageal reflux disease): Plan: Chronic. Well controlled on medications -Continue Protonix 40mg po qAM (9) Peripheral arterial disease: Plan: Chronic -Continue Simvastatin 20mg po qHS -Continue ASA Plan: F/E/N - Heplock. Repeat chemistry in AM, Renal/CC diet as tolerated Ppx - Heparin 7500 TID Code - Full Dispo - Admit to PCU Admission and Anticipated Discharge Date Admission Date: June 23, 2021 Subjective Patient reports he has been somewhat confused at home for past week. Patient lives with his son. Patient currently has no new complaints. Review of Systems Review of Systems: All systems reviewed & are unremarkable except as noted in HPI & below Physical Exam Physical Exam: General: patient ill in appearance, somnolent but arousable, answers questions appropriately and follows commands Skin: surgical site on left 2nd and 3rd toe with sutures in place, scabbing, no erythema/drainage/edema. Ulcer left ankle HEENT: NC/AT, PERRL, EOMI, anicteric sclera, conjunctiva without injection, external ear normal to inspection and nontender, nares patent, moist mucus membranes, dentition intact, no oropharyngeal lesions, neck supple, trachea midline, no LAD, no thyromegaly, no JVD Heart: +S1/S2, regular, no m/r/g Lungs: equal air entry bilaterally, crackles in bilateral bases Abd: +BS, soft, mildly tender diffusely with deep palpation, no rebound/guarding/peritoneal signs, no masses/organomegaly/ascites Ext: warm, 2+ pulses in UE/LE bilaterally, s/p amputation 2nd and 3rd digits of left foot, LUE AV fistula with palpable thrill Neuro: nonfocal, patient AA&O x 4, speech intact, no facial droop, moving all extremities on command with equal strength 5/5 Results & Data Results & Data ([facility]) Vital Signs (Past 12 Hours) Vital Signs Temp Pulse Pulse Pulse Resp BP BP 06/24/21 20:13 57 L 21 06/24/21 19:39 56 L 06/24/21 19:09 36.8 C 57 L 22 136/54 L 06/24/21 15:22 36.9 C 68 30 H 153/56 H 06/24/21 13:32 37.1 C 59 L 144/70 H 06/24/21 13:00 55 L 127/61 06/24/21 12:40 56 L 145/62 H 06/24/21 12:20 58 L 127/54 L 06/24/21 12:00 55 L 130/75 06/24/21 11:40 58 L 124/64 06/24/21 11:20 59 L 162/67 H 06/24/21 11:00 60 135/77 06/24/21 10:40 63 141/67 H 06/24/21 10:20 64 153/73 H 06/24/21 10:00 64 154/76 H 06/24/21 09:42 63 164/75 H 06/24/21 09:33 37.3 C 63 Pulse Ox 06/24/21 20:13 95 06/24/21 19:39 06/24/21 19:09 95 06/24/21 15:22 94 06/24/21 13:32 06/24/21 13:00 06/24/21 12:40 06/24/21 12:20 06/24/21 12:00 06/24/21 11:40 06/24/21 11:20 06/24/21 11:00 06/24/21 10:40 06/24/21 10:20 06/24/21 10:00 06/24/21 09:42 06/24/21 09:33 PG Care Time/CCT Total # of Minutes Spent Total Time Spent with Patient: Total time spent is greater than 50% in coordination of care (as documented) at patient's floor/unit and/or counseling patient: Coding Level of Care Code 45165 Subseq Hosp Care Lvl 3 Diagnoses Hypoxia R09.02 Fever R50.9 Fever type: unspecified ESRD (end stage renal disease) N18.6 Diabetes mellitus E11.69; Z79.4 Diabetes mellitus complication status: with other specified complication Diabetes mellitus retirement insulin use: with roasterman use Diabetes mellitus type: type 2 Hypothyroidism E03.9 Hypothyroidism type: unspecified Hypertension I10 Hypertension type: essential hypertension Depression F32.9 Depression Type: unspecified GERD (gastroesophageal reflux disease) K21.9 Peripheral arterial disease I73.9 (1) Fever Fever type: unspecified Qualified Code(s): R50.9 - Fever, unspecified (2) Diabetes mellitus Diabetes mellitus complication status: with other specified complication Diabetes mellitus roasterman insulin use: with roasterman use Diabetes mellitus type: type 2 Qualified Code(s): E11.69 - Type 2 diabetes mellitus with other specified complication; Z79.4 - detention (current) use of insulin (3) Depression Depression Type: unspecified Qualified Code(s): F32.9 - Major depressive disorder, single episode, unspecified (4) Hypothyroidism Hypothyroidism type: unspecified Qualified Code(s): E03.9 - Hypothyroidism, unspecified (5) Hypertension Hypertension type: essential hypertension Qualified Code(s): I10 - Essential (primary) hypertension
[2021-06-25 04:55] LABS: Hematocrit (blood only) 31.6 % (42-52); Hemoglobin 10.2 g/dL (14.0-18.0); Mean Corpuscular Hemoglobin 32.9 pg (25-34); Mean Corpuscular Hgb Conc 32.3 g/dL (32-36); Mean Corpuscular Volume 101.9 fL (80-100); Mean Platelet Volume 9.7 fL (7.4-10.4); Platelet Count 197 K/uL (130-400); RDW Coefficient of Variation 13.5 % (11.5-14.5); RDW Standard Deviation 49.8 fL (36.4-46.3); White Blood Count 10.03 K/uL (4.8-10.8)
[2021-06-25 05:33] LABS: Albumin Level 3.4 gm/dl (3.4-5.0); BUN Creatinine Ratio 5.6 (10-20); Bilirubin,Total 0.5 mg/dl (0.2-1.0); Calcium 8.8 mg/dl (8.5-10.1); Creatinine Clr Calc Pharmacy 13.2 ml/min; Est GFR (African American) 7.7 ml/min; Est GFR (Non-African American) 6.7 ml/min; Globulin 3.5 gm/dl (2.5-4.0); Potassium 4.5 mmol/L (3.5-5.1); Total Protein 6.9 gm/dl (6.0-8.3)
[2021-06-25] MEDS: LEVOTHYROXINE SODIUM 125 MCG TABLET PO SCH (06:14)
[2021-06-25] MEDS: HEPARIN SOD 5,000 UNIT/0.5 ML VIAL SQ SCH ×2 (06:14→14:40)
[2021-06-25] MEDS: INSULIN ASPART PER UNIT SC SCH ×3 (08:00→16:41)
[2021-06-25] MEDS: FUROSEMIDE 80 MG TAB PO SCH ×2 (08:01→16:40)
[2021-06-25] MEDS: busPIRone 5 MG TAB PO SCH (08:01)
[2021-06-25] MEDS: SEVELAMER HCL 800 MG TABLET PO SCH ×3 (08:01→16:40)
[2021-06-25] MEDS: carvediloL 12.5 MG TAB PO SCH ×2 (08:01→16:40)
[2021-06-25] MEDS: FLUTICASONE PROPIONATE NA SPR 16 GM BTL SCH (08:02)
[2021-06-25] MEDS: ESCITALOPRAM OXALATE 10 MG TAB PO SCH (08:02)
[2021-06-25] MEDS: INSULIN GLARGINE SOLOSTAR 100 UNITS/ML 3 ML PEN SC SCH (08:02)
[2021-06-25] MEDS: COLLAGENASE OINT 30 GM TUBE TOP SCH (08:02)
[2021-06-25] MEDS: LOSARTAN POTASSIUM 50 MG TAB PO SCH (08:03)
[2021-06-25] MEDS: PANTOprazole 40 MG TAB PO SCH (08:04)
[2021-06-25] MEDS ORDERED: SODIUM CHLORIDE 0.9% 1000ML 1,000 ML IV PRN (09:49)
--- NOTE | 2021-06-25 12:17 | Nephrology Progress Note ---
Date of Service June 25, 2021 Assessment & Plan (1) ESRD on hemodialysis: Plan: ESRD on HD TTS. Missed treatment Tuesday. Completed HD yesterday. Remains above EDW. Orders for short treatment today for additional UF entered into EHR and discussed with nurse. This will allow Sebastián to return to his TTS schedule. Sebastián was agreeable. Medications are appropriately dosed for kidney dysfunction. Vanco dosing per pharmacy. I informed the pharmacy of plans for treatment today. Renal diet. Repeat metabolic profile and H/H tomorrow AM. (2) Anemia in chronic kidney disease: Plan: Maintained on Micera as outpatient. Chronic, stable. (3) Goals of care, counseling/discussion: Plan: Plan to continue HD for now. Will continue conversation as outpatient post discharge. Admission and Anticipated Discharge Date Admission Date: June 23, 2021 Subjective No acute events overnight. Completed HD yesterday without complications. Net UF 4 L. Overall, Sebastián feels reasonably well. He was asking about discharge home. No fevers or chills. Denies pain. Breathing comfortably. I revisited a goals of care conversation with Sebastián. We spoke for ~30 minutes about his quality of life and views on dialysis. Unfortunately, he is struggling with increasing dependence and limited ability to take care of himself. He sees dialysis as a burden most days and does become discouraged. He does not mind being hospitalized. He does not feel that he is ready for hospice care. We did not discuss code status in detail. I discussed the plan of care with Dr. Crowley this AM. Review of Systems Review of Systems: All systems reviewed & are unremarkable except as noted in HPI & below Physical Exam Constitutional: well developed and + morbidly obese; no acute distress Eyes: no scleral abnormality and no corneal abnormality ENMT: Mouth: no oral mucosal abnormality and oral mucous membranes not dry Neck: normal visual inspection and trachea midline Respiratory: normal respiratory effort Auscultation: lungs clear to auscultation bilaterally Cardiovascular: Rate/Rhythm: regular rate Heart Sounds: normal S1 and normal S2 Extremities: + edema (predominately in abdomen with trace to 1+ BL LE) and + AV fistula Musculoskeletal: Extremities: no cyanosis and no clubbing Skin: normal turgor; no lesions Neurologic: Motor/Sensory: no tremor and no asterixis Psychiatric: Orientation: alert and oriented x 3 Results & Data ([facility]) Vital Signs (Past 12 Hours) Vital Signs Temp Pulse Pulse Resp BP Pulse Ox 06/25/21 07:35 36.8 C 53 L 19 133/61 98 06/25/21 05:00 54 L 16 06/25/21 04:10 53 L 18 95 06/25/21 04:00 37.1 C 56 L 74 16 136/58 L 100 06/25/21 03:00 52 L 15 06/25/21 02:00 52 L 17 06/25/21 01:00 53 L 17 Laboratory Results Laboratory Results - last 24 hr 06/24/21 06/24/21 06/24/21 13:51 16:26 16:35 WBC RBC Hgb Hct MCV MCH MCHC RDW Std Deviation RDW Coeff of Jorge A Plt Count MPV Sodium Potassium Chloride Carbon Dioxide Anion Gap BUN Creatinine Est Cr Clr Drug Dosing Est GFR ( Amer) Est GFR (Non-Af Amer) BUN/Creatinine Ratio Glucose POC Glucose 96 171 H Calcium Total Bilirubin AST ALT Alkaline Phosphatase Total Protein Albumin Globulin Albumin/Globulin Ratio Random Vancomycin Bld Cult Staph aureus PCR Negative Blood Culture MRSA PCR Negative 06/24/21 06/25/21 06/25/21 19:55 04:37 04:37 WBC 10.03 RBC 3.10 L Hgb 10.2 L Hct 31.6 L MCV 101.9 H MCH 32.9 MCHC 32.3 RDW Std Deviation 49.8 H RDW Coeff of Jorge A 13.5 Plt Count 197 MPV 9.7 Sodium Potassium Chloride Carbon Dioxide Anion Gap BUN Creatinine Est Cr Clr Drug Dosing Est GFR ( Amer) Est GFR (Non-Af Amer) BUN/Creatinine Ratio Glucose POC Glucose 117 H Calcium Total Bilirubin AST ALT Alkaline Phosphatase Total Protein Albumin Globulin Albumin/Globulin Ratio Random Vancomycin 22.2 H Bld Cult Staph aureus PCR Blood Culture MRSA PCR 06/25/21 06/25/21 06/25/21 04:37 07:16 11:34 WBC RBC Hgb Hct MCV MCH MCHC RDW Std Deviation RDW Coeff of Jorge A Plt Count MPV Sodium 136 Potassium 4.5 Chloride 98 Carbon Dioxide 27 Anion Gap 11 BUN 43 H Creatinine 7.66 H* D Est Cr Clr Drug Dosing 13.2 Est GFR ( Amer) 7.7 Est GFR (Non-Af Amer) 6.7 BUN/Creatinine Ratio 5.6 L Glucose 109 H POC Glucose 116 H 138 H Calcium 8.8 Total Bilirubin 0.5 AST 13 ALT 5 L Alkaline Phosphatase 57 Total Protein 6.9 Albumin 3.4 Globulin 3.5 Albumin/Globulin Ratio 1.0 Random Vancomycin Bld Cult Staph aureus PCR Blood Culture MRSA PCR PG Care Time/CCT Total # of Minutes Spent Total Time Spent with Patient: Total time spent is greater than 50% in coordination of care (as documented) at patient's floor/unit and/or counseling patient: Coding Level of Care Code 66226 Subseq Hosp Care Lvl 3 Diagnoses ESRD on hemodialysis N18.6; Z99.2 Anemia in chronic kidney disease N18.6; D63.1; Z99.2 Chronic kidney disease stage: on chronic dialysis Goals of care, counseling/discussion Z71.89 (1) Anemia in chronic kidney disease Chronic kidney disease stage: on chronic dialysis Qualified Code(s): N18.6 - End stage renal disease; D63.1 - Anemia in chronic kidney disease; Z99.2 - Dependence on renal dialysis
--- NOTE | 2021-06-25 14:09 | Pharmacy Report ---
Pharmacy [facility] Short Note - Date of Service June 25, 2021 - Assessment & Plan Assessment 66 year old M receiving vancomycin and cefepime empirically in setting of fever and hypoxia. Possible wound infection. Pt is ESRD on iHD (T,Th,Sat). Prelim blood cultures (+) CoNS in 1. MRSA nasal (-). Day # 3 of antimicrobial therapy. Plan Vancomycin * Random vancomycin level this AM- 22.2mcg/mL. Currently in dialysis, therefore safe to re-dose. * Vanc 500mg IV X 1 post HD today. * Random level in AM to guide further dosing. Pharmacy will continue to follow and will adjust dose/frequency as necessary. Thank you.
[2021-06-25] MEDS ORDERED: VANCOMYCIN HCL 500 MG in DEXTROSE 5% 100 ML IV ONE (16:00)
[2021-06-25] MEDS: CEFEPIME 500 MG in SYRINGE 0 ML IV SCH (16:40)
--- NOTE | 2021-06-25 19:10 | Discharge Summary ---
Date of Service June 25, 2021 Admission HPI Per Admitting Provider Mr. Maxx Patiño is a 66yo male with history of ESRD on HD q T/R/Sat - last full treatment received on Tuesday06/20/21, also with DM, HLP, GERD, Hypothyroidism. Patient presents to the ER with complaint of feeling "ill" for the last 1-2 days. He has cough as well as SOB. EMS was called - patient found to be saturating 80% on room air. He had two episodes of non-bloody/non-bilious vomiting prior to arrival. Patient has history of diabetic foot ulcer with osteomyelitis of the 2nd and 3rd toe s/p amputation performed by Dr. Vela on 06/16/21. The surgery was well tolerated with no complications. Patient was seen in [facility] yesterday 06/22/21 for management of his diabetic ulcer of the left ankle. He had debridement performed. Wounds are being dressed with Xeroform. Patient does not provide much history. He is complaining of mild abdominal pain and SOB. Otherwise, denies chest pain, diarrhea. He makes a small amount of urine. He did not receive his HD treatment today. No additional complaints at this time. Upon arrival to the ER, patient febrile at 38, RR of 26, saturating 81% on room air. He was placed on CPAP with improvement. ER Course: Zofran 4mg, Vancomycin 2750mg, Cefepime 2gm, Lasix 40mg, Calcium gluconate x 1gm, Tylenol x 1gm, Albuterol neb Principal Diagnosis hypoxia Discharge Exam General: patient ill in appearance, somnolent but arousable, answers questions appropriately and follows commands Skin: surgical site on left 2nd and 3rd toe with sutures in place, scabbing, no erythema/drainage/edema. Ulcer left ankle HEENT: NC/AT, PERRL, EOMI, anicteric sclera, conjunctiva without injection, external ear normal to inspection and nontender, nares patent, moist mucus membranes, dentition intact, no oropharyngeal lesions, neck supple, trachea midline, no LAD, no thyromegaly, no JVD Heart: +S1/S2, regular, no m/r/g Lungs: equal air entry bilaterally, decreased crackles in bilateral bases Abd: +BS, soft, mildly tender diffusely with deep palpation, no rebound/guarding/peritoneal signs, no masses/organomegaly/ascites Ext: warm, 2+ pulses in UE/LE bilaterally, s/p amputation 2nd and 3rd digits of left foot, LUE AV fistula with palpable thrill Neuro: nonfocal, patient AA&O x 4, speech intact, no facial droop, moving all extremities on command with equal strength 5/5 Discharge Data Allergies Allergy/AdvReac Type Severity Reaction Status Date / Time lactose Allergy Intermediate Gastrointestinal Verified 06/23/21 17:00 Upset Consultations 06/23/21 18:38 ED Decision to Admit Stat 06/23/21 19:59 Consult Nephrology Routine 06/24/21 22:52 Consult Orthopedic Surgery Routine Ordered Studies 06/23/21 16:26 CT abd pelvis IV con only Stat CT angio chest PE protocol Stat CT head/brain wo con Stat Hospital Course (1) Hypoxia: 66yo male with history of ESRD, HLP, DM, GERD presenting with feeling of illness, hypoxic on arrival now improved with use of CPAP. CXR with suggestion of volume overload - most likely secondary to missed HD, volume overload. Patient presently not in any respiratory distress. He is comfortable on CPAP, currently on 3 liters nasal cannula which is his baseline. Covid/Flu is Negative VBG largely unremarkable Imaging does not suggest PNA but does show atelectasis. -Admit to PCU -Continue CPAP qHS and as needed -Incentive spirometry q 2 hours while awake ON 06/25 Patient is refusing to stay an additional night. Patient had a short Hemodlialysis treatment today. Patient's next HD will be Tuesday. Patient will be going home, currently patient is stable, and will treat for aspiration pneumonia. Patient will be on antibiotics for 5 more days. Given his poor quality of life, and the fact that he does not fully seem on board of receiving dialysis, a goals of care discussion is recommended. Patient currently refused a palliative care consult. Will defer to PCP. (2) Fever: Patient febrile on arrival at 38.2. concern that infection may be coming from the foot. will consult ortho Recent amputation - surgical site does not appear acutely infected. - recent debridement as possible source -Follow cultures sent from ER -Empiric coverage with Vancomycin and Cefepime - appropriate dosing for ESRD/HD per pharmacy - appreciate assistance -Monitor wounds - wound care BID -Tylenol PRN (3) ESRD (end stage renal disease): Patient with ESRD on HD q T/R/Sat. He missed his HD treatment today - thinks he received a full treatment on Tuesday. Presently with normal pH of 7.38 on VBG, mild elevation of K at 5.2 without EKG changes. Patient is volume overloaded as described above. He was given Lasix in the ER and has produced a small amount of urine. Does not seem to require urgent dialysis at this time. -Admission with telemetry monitoring -Repeat chemistry in AM -May redose Lasix if patient becomes more hypoxic -Avoid nephrotoxic agents -Medication dosing for ESRD where appropriate -Continue Renagel -Nephrology consultation appreciated - will most likely receive HD in AM Of note - patient informed me that he finds HD extremely challenging and he became slightly frustrated when I explained to him that he will most likely receiving HD in the AM. He voiced to the ER nurse that he is not sure if he wants to continue receiving HD in the future. (4) Diabetes mellitus: Fairly well controlled with last [id number]=7.7 on 06/16/21 -Lantus 7u BID with ISS -Goal blood sugar 100 - 140 -Continue Gabapentin 300mg po qHS (5) Hypothyroidism: Chronic. -Check TSH in AM -Continue Synthroid 125mcg po daily (6) Hypertension: Chronic. Blood pressure presently 147/73 -Continue Losartan 50mg po qAM -Continue Carvedilol -Continue Amlodipine 10mg po qHS -Continue to monitor (7) Depression: Chronic -Continue Escitalopram 10mg po qAM -Continue Buspirone (8) GERD (gastroesophageal reflux disease): Chronic. Well controlled on medications -Continue Protonix 40mg po qAM (9) Peripheral arterial disease: Chronic -Continue Simvastatin 20mg po qHS -Continue ASA Acute respiratory failure with hypoxia e/b a calculated PF ratio of 86 On admission, respiration rate 26, pulse ox 81% on room air. Pulse ox 96% on 100% FiO2 CPAP. Calculated ratio PF ratio of 86, Rales bilaterally and expiratory wheezes bilaterally. Chest x-ray showed cardiomegaly and mild pulmonary edema with the possibility of small bilateral pleural effusions. Nephrology consult was adamantly in disagreement with your physician about the urgent need for this patient having hemodialysis. Risk Factor(s): Age, ESRD, ?pneumonia, ?sepsis, morbid obesity, Treatment: 100% FiO2 via CPAP, DuoNebs, Need for Urgent HD, IV Lasix, Total Time Total Time Spent Total Time Spent (In Minutes): 32 Discharge Plan Discharge Items Patient Disposition: Home - Home Health Services Reason For Visit: SOB, NEEDS HD Discharge Diagnosis: SOB Activity: Resume your previous activity Non-emergency contact: Surgeon Call non-emergency contact if: your pain is not controlled, your temperature is above 101, your wound has increased redness and your wound has increased drainage Follow-up/Referrals: Veto Gan DO [Primary Care Provider] - Demetrius Vela MD [Surgeon] - 06/29/21 12:00 pm Diet: Carb Consistent or DM2 and Dialysis Renal Diet Texture: Dental soft (bite-sized) Addtl Attending Provider Instructions: Recommended to stay the night. Patient though wants to leave today. Hemodialysis is on Tuesday. will continue antibiotics for 5 more days to treat possible aspiration Addtl Alto Singer Provider Instructions: Wear postop shoe when out of bed. Keep dressing on left foot at all times. Elevate left foot above your heart to relieve swelling. You may weight-bear as tolerated on your left lower extremity with the postop shoe when out of bed. Follow-up with Dr. Vela as scheduled on June 29, 2021. Pending Studies at Discharge: No Stand-Alone Forms: My [facility] [employer], Smoking Cessation Medications and DC Order Prescriptions: New amoxicillin-pot clavulanate [Augmentin] 500-125 mg tablet 1 tab PO DAILY Qty: 5 RF: 0 Continued Santyl 250 unit/gram ointment 1 applic topical DAILY 14 Days Qty: 30 RF: 1 amlodipine 10 mg tablet 10 mg PO HS Qty: 90 RF: 3 aspirin 81 mg tablet,chewable 81 mg PO HS Qty: 90 RF: 3 gabapentin 100 mg capsule 300 mg PO HS Qty: 270 RF: 3 (DME) HYDRAULIC KHADAR LIFT See Rx Instructions .Route .MEDSUPPLY Qty: 1 RF: 0 (DME) FreeStyle Virgil 14 Day Sensor Kit See Dose Instructions .ROUTE .MEDSUPPLY Qty: 6 RF: 3 (DME) FreeStyle Virgil 14 Day [place] Misc See Rx Instructions .ROUTE .MEDSUPPLY Qty: 1 RF: 5 furosemide [Lasix] 80 mg tablet 80 mg PO BID Qty: 180 RF: 3 fluticasone propionate 50 mcg/actuation spray,suspension 2 spray intranasal DAILY Qty: 16 RF: 5 nitroglycerin 0.4 mg tablet, sublingual 0.4 mg sublingual DIRECTED PRN (Reason: Chest Pain) RF: 0 Lantus U-100 Insulin 100 unit/mL Solution See Rx Instructions .ROUTE .COMPLEX RF: 0 loperamide [Imodium A-D] 2 mg capsule 2 mg PO DIRECTED PRN (Reason: loose stool) RF: 0 simvastatin 20 mg tablet 20 mg PO HS RF: 0 carvedilol 12.5 mg tablet 12.5 mg PO BID RF: 0 levothyroxine 125 mcg tablet 125 mcg PO QAM RF: 0 omeprazole 20 mg capsule,delayed release(DR/EC) 20 mg PO QAM RF: 0 nystatin 100,000 unit/gram powder 1 applic topical BID PRN (Reason: irritation) RF: 0 sevelamer carbonate 800 mg tablet 2,400 mg PO TIDM RF: 0 losartan 50 mg tablet 50 mg PO QAM RF: 0 buspirone 10 mg tablet 10 mg PO BID RF: 0 escitalopram oxalate 10 mg tablet 10 mg PO QAM RF: 0 Discharge Orders: Discharge Order (Routine); Ordered 06/25/21 Ordered By: Van Crowley Admission Data Admit Date/Time: 06/23/21 19:59 Attending Provider: Van Crowley Admit Provider: Felicita Steel Primary Care Provider: Veto Gan. Other Providers: Ann Leone ; Audi Francis ; Demetrius Vela Other Interventions: Discharge Summary Assessment (RN) Last Done: 06/25/21 17:44 Coding Level of Care Code D/C DAY MANAGEMENT >30 MINS Diagnoses Hypoxia R09.02 Fever R50.9 Fever type: unspecified ESRD (end stage renal disease) N18.6 Diabetes mellitus E11.69; Z79.4 Diabetes mellitus complication status: with other specified complication Diabetes mellitus fdc insulin use: with terminal makeup operator use Diabetes mellitus type: type 2 Hypothyroidism E03.9 Hypothyroidism type: unspecified Hypertension I10 Hypertension type: essential hypertension Depression F32.9 Depression Type: unspecified GERD (gastroesophageal reflux disease) K21.9 Peripheral arterial disease I73.9
== END 2021-06-25 18:36 | disposition home health service (06) | DRG 682 ==
LOC: ED 16:19 → EDINP 19:59 → SUATTDRO 19:59 → 1E 06-24 06:06
DX: N18.6 End stage renal disease; S41.112A Laceration without foreign body of left upper arm, initial encounter; E11.622 Type 2 diabetes mellitus with other skin ulcer; Z68.41 Body mass index [BMI] 40.0-44.9, adult; E03.9 Hypothyroidism, unspecified; Z91.011 Allergy to milk products; Z79.82 Long term (current) use of aspirin; X58.XXXA Exposure to other specified factors, initial encounter; D63.1 Anemia in chronic kidney disease; F32.A Depression, unspecified; I73.9 Peripheral vascular disease, unspecified; K21.9 Gastro-esophageal reflux disease without esophagitis; L97.509 Non-pressure chronic ulcer of other part of unspecified foot with unspecified severity; Z99.2 Dependence on renal dialysis; Z91.15 Patient's noncompliance with renal dialysis; E11.22 Type 2 diabetes mellitus with diabetic chronic kidney disease; Z79.890 Hormone replacement therapy; Z79.4 Long term (current) use of insulin; F17.210 Nicotine dependence, cigarettes, uncomplicated; Z99.3 Dependence on wheelchair; E78.5 Hyperlipidemia, unspecified; I12.9 Hypertensive chronic kidney disease with stage 1 through stage 4 chronic kidney disease, or unspecified chronic kidney disease; E11.51 Type 2 diabetes mellitus with diabetic peripheral angiopathy without gangrene; E87.70 Fluid overload, unspecified; J96.01 Acute respiratory failure with hypoxia; E11.621 Type 2 diabetes mellitus with foot ulcer; L97.329 Non-pressure chronic ulcer of left ankle with unspecified severity; E66.01 Morbid (severe) obesity due to excess calories; L97.529 Non-pressure chronic ulcer of other part of left foot with unspecified severity; S41.111A Laceration without foreign body of right upper arm, initial encounter

== ENCOUNTER 2021-08-04 16:26 | Inpatient (IN) ==
--- NOTE | 2021-08-04 16:51 | Emergency Department Note ---
Impression & Plan Acute hypoxemic respiratory failure, Hyperkalemia, Volume overload, ESRD (end stage renal disease) on dialysis, Acute dyspnea ED Provider Note NAME: KANG ORTIZ AGE: 66 SEX: M : 1955 ARRIVES VIA: Ambulance INFORMANT: Patient, ED PROVIDER(S): Garfield Gregory MD Chief Complaint: SOB HPI: Patient presents from home due to concern for respiratory problems and generalized weakness and fatigue. Patient reportedly is prior history of back injury and this is virtually bedbound. Patient is ESRD on dialysis typically Tuesday last receive dialysis Tuesday and skipped his dialysis today as he was not feeling his best. Patient denies any chest pains but does have associated shortness of breath. No cough. Patient states that he does not urine but does follow with Dr. Vasquez is to be taking Lasix 80 mg twice daily. Patient reportedly was found at 75% on room air at home and thus EMS was called by the patient's . The patient is a full code. Patient states that he does have shortness of breath. ROS: See HPI for pertinent positives and negatives. A total of 10 systems were reviewed and otherwise negative. Past medical history: See below Surgical history: See below Social history: See below Physical Exam: GENERAL: Mildly ill in appearance, nasal cannula in place, tachypneic. EYE EXAM: Normal conjunctiva. PERRL, no anisocoria and EOM's grossly intact w/o pain. OROPHARYNX: Moist mucus membranes. Edentulous. NECK: Supple, no nuchal rigidity, no adenopathy, non-tender. No signs of meningismus. LUNGS: Decreased breath sounds throughout with tachypnea and shallow breathing noted. HEART: NSR, no MRG. ABDOMEN: Abdomen soft, non-tender, normo-active bowel sounds, no masses, no rebound or guarding. BACK: No CVA TTP. SKIN: No rashes and no bruising. UPPER EXTREMITIES: Upper extremities are grossly normal. LOWER EXTREMITIES: Grossly normal, no calf pain. NEURO EXAM: Awake and alert follows basic commands and does move all 4 extremities. Differential diagnoses: Reactive airway disease, pneumonia, pneumothorax, COPD, CHF, infections, cardiac ischemia, pulmonary embolism, musculoskeletal, gastrointestinal, as well as other pathologies. Course: Patient was seen and evaluated the bedside. Full history physical exam was performed. EKG interpreted by me Sinus with first-degree AV block, rate of 71, prolonged SC. Imaging Studies: See Below Cardiac monitoring: An order was placed for continuous cardiac monitoring. The monitor shows a rate of 88 with sinus rhythm. MDM: Upon seeing the patient the patient was in some mild respiratory distress with tachypnea and shallow breathing. The patient is satting well on 2 to 3 L nasal cannula. The patient was placed on BiPAP. I did order empiric dose of Zosyn antibiotics. Pending potassium at this time. I did speak with Dr. Francis with [facility] who stated it was unlikely that they could accommodate an emergent dialysis patient at this time. Patient was ordered Lasix and nitro. Blood work ordered along with chest x-ray. Patient's chest x-ray does appear to show volume overload. Dr. Francis was able to speak with the dialysis nurse and the patient could have dialysis this evening. The patient was initially unsure as to whether or not he wanted dialysis. I discussed with the patient that if he did not want dialysis probably was not reasonable to remain full code. After further discussion with myself and Dr. Vasquez the patient is agreeable to doing dialysis this evening and will further discuss any additional treatments during his hospital stay. I did speak to the on-call hospitalist Dr. Limon and the patient was admitted to the medicine service. The patient was subsequently taken to hemodialysis. Patient's initial potassium was hemolyzed after the patient had been taken to dialysis potassium was greater than 6. I did convey this result to Dr. Francis. Critical Care: I have personally spent 97 Minutes of critical care time in direct management of this patient. This includes bedside care, interpretation of diagnostic studies, and testing, discussion with consultants, patient, and family members, and other require inpatient management activities. This 97 minutes is in excess of all separately billable procedures. Past Med/Surg History Medical History Anemia in chronic kidney disease Anxiety Bedbound Depression DM type 2 (diabetes mellitus, type 2) Dyslipidemia Dysphagia ESRD (end stage renal disease) on dialysis started in 2019 - , , Sat - [facility] in [place]. (per sister, poultry packer recommends 5xwk but pt refuses) Fistula LUE GERD (gastroesophageal reflux disease) Hypothyroidism Limb alert care status LUE Morbid obesity with BMI of 40.0-44.9, adult Obstructive sleep apnea [id number] On home oxygen therapy 2L n/c with cpap at HS Osteoarthritis Peripheral arterial disease Peripheral neuropathy bilt legs/feet Secondary hyperparathyroidism of renal origin Tremor Unable to ambulate khadar lift Wounds, multiple x 2 LUE, left ankle, multiple toes left side -- wound clinic pt Surgical History History of bilateral cataract extraction History of cardiac cath 01/2018 "about 2-3 weeks"; no stents placed @ [facility] by Dr. Coronel History of carpal tunnel release R wrist History of colonoscopy History of esophagogastroduodenoscopy (EGD) History of repair of anterior cruciate ligament of left knee History of repair of anterior cruciate ligament of right knee History of tonsillectomy History of tooth extraction wisdom teeth Family History Mother Family history of diabetes mellitus Grandmother Family history of diabetes mellitus maternal Other Colorectal cancer Inflammatory bowel disease Melanoma Social History Smoking Status: Current every day smoker Tobacco Type: Cigarettes Age Started Using Tobacco: 15; Cigarettes Per Day: 1 ppd; Second Hand Exposure: Yes (as a child); Hx Alcohol Use: Yes Alcohol type: beer Hx Substance Use: No Preferred Language: Kiswahili Communication Ability: Effective Firearms Inspector Required: No Beliefs That Will Affect Care: None marital status: Single Current Living Situation: Family Current Living Situation Comment: pt lives with son current occupational status: retired How many Children do You have: 2 Feels Safe at Home: Yes Seatbelt Use: always Assistive Devices: CPAP, Mechanical Lift, Oxygen - Continuous and Wheelchair Allergies Allergies Allergy/AdvReac Type Severity Reaction Status Date / Time lactose AdvReac Intermediate Gastrointestinal Verified 08/04/21 21:30 Upset Home Meds Home Medications Medication Instructions Recorded Confirmed nitroglycerin 0.4 mg sublingual 0.4 mg SUBLINGUAL DIRECTED PRN 07/11/20 08/04/21 tablet loperamide 2 mg capsule (Imodium 2 mg PO DIRECTED PRN 01/05/21 08/04/21 A-D) nystatin 100,000 unit/gram topical 1 applic TOPICAL BID PRN 04/04/21 08/04/21 powder sevelamer carbonate 800 mg tablet 2,400 mg PO TIDM 04/04/21 08/04/21 buspirone 10 mg tablet 5 mg PO BID 05/09/21 08/04/21 escitalopram oxalate 10 mg tablet 10 mg PO QAM 05/09/21 08/04/21 simvastatin 20 mg tablet 20 mg PO HS 05/12/21 08/04/21 carvedilol 12.5 mg tablet 12.5 mg PO BID 06/11/21 08/04/21 omeprazole 20 mg capsule,delayed 20 mg PO QAM 06/11/21 08/04/21 release insulin glargine 100 unit/mL (3 16 unit SUBCUT QAM 08/04/21 08/04/21 mL) subcutaneous pen (Lantus Solostar U-100 Insulin) Previous Rx's Medication Instructions Recorded HYDRAULIC KHADAR LIFT #1 ea 01/26/21 FreeStyle Virgil 14 Day Sensor #6 ea NS 02/24/21 (flash glucose sensor) FreeStyle Virgil 14 Day [place] #1 ea NS 03/08/21 (flash glucose scanning reader) furosemide 80 mg tablet (Lasix) 80 mg PO BID #180 tab 06/08/21 fluticasone propionate 50 2 spray INTRANASAL DAILY #16 g 06/22/21 mcg/actuation nasal spray,suspension amlodipine 10 mg tablet 10 mg PO HS #90 tab 07/02/21 aspirin 81 mg chewable tablet 81 mg PO HS #90 tab 07/02/21 levothyroxine 125 mcg tablet 125 mcg PO QAM #90 tab 07/02/21 losartan 50 mg tablet 50 mg PO QAM #90 tab 07/02/21 gabapentin 100 mg capsule 300 mg PO HS #270 cap 07/07/21 Results & Data (ED) Vital Signs Vital Signs - 24 hr 08/04/21 18:00 08/04/21 18:15 08/04/21 18:30 Pulse Rate 66 64 61 Pulse Rate from SpO2 Sensor 66 64 61 Respiratory Rate 24 19 23 Respiratory Effort / Characteristics Respiratory Depth Respiratory Pattern Blood Pressure 160/68 H 155/73 H 154/67 H Blood Pressure Mean 98 100 96 Pulse Oximetry 94 96 96 Oxygen Delivery Method BiPAP BiPAP BiPAP Fraction of Inspired Oxygen 08/04/21 18:45 08/04/21 19:00 05/03/22 19:32 Pulse Rate 58 L Pulse Rate from SpO2 Sensor 61 Respiratory Rate 12 26 H Respiratory Effort / Characteristics Spontaneous Respiratory Depth Normal Respiratory Pattern Regular Blood Pressure 136/63 Blood Pressure Mean 87 Pulse Oximetry 97 97 Oxygen Delivery Method BiPAP BiPAP Fraction of Inspired Oxygen 30 Home Medications Current Medication List: was personally reviewed by me Laboratory Data Attestation: I reviewed the patient's lab results. Result diagrams: 08/05/21 06:32 08/05/21 06:32 Lab Results 08/04/21 08/04/21 08/04/21 Range/Units 17:20 17:20 17:20 WBC 16.40 H (4.8-10.8) K/uL RBC 3.69 L (4.7-6.1) M/uL Hgb 11.8 L (14.0-18.0) g/dL Hct 36.6 L (42-52) % MCV 99.2 (80-100) fL MCH 32.0 (25-34) pg MCHC 32.2 (32-36) g/dL RDW Std Deviation 52.0 H (36.4-46.3) fL RDW Coeff of Jorge A 14.6 H (11.5-14.5) % Plt Count 270 (130-400) K/uL MPV 10.4 (7.4-10.4) fL Immature Gran % (Auto) 0.4 % Neut % (Auto) 88.1 % Lymph % (Auto) 7.3 % [place] % (Auto) 3.8 % Eos % (Auto) 0.2 % Baso % (Auto) 0.2 % Neut # (Auto) 14.44 H (1.4-6.5) K/uL Lymph # (Auto) 1.20 (1.2-3.4) K/uL [place] # (Auto) 0.62 H (0.11-0.59) K/uL Eos # (Auto) 0.03 (0-0.5) K/uL Baso # (Auto) 0.04 (0-0.2) K/uL Immature Gran # (Auto) 0.07 H (0.00-0.02) K/uL PT 14.1 H (9.0-12.0) Seconds INR 1.3 H (0.9-1.1) APTT 29.9 (21.0-31.0) Seconds PTT Ratio 1.1 VBG pH (7.36-7.41) VBG pCO2 (38-50) mmHg VBG pO2 mmHg VBG HCO3 mmol/L VBG O2 Saturation % VBG Base Excess mEq/L Barometric Pressure mm/Hg Sodium (136-145) mmol/L Potassium (3.5-5.1) mmol/L Chloride (98-107) mmol/L Carbon Dioxide (21-32) mmol/L Anion Gap (3-11) BUN (6-23) mg/dl Creatinine (0.6-1.4) mg/dl Est Cr Clr Drug Dosing ml/min Est GFR ( Amer) ml/min Est GFR (Non-Af Amer) ml/min BUN/Creatinine Ratio (10-20) Glucose (70-99(Fasting)) mg/dl Lactate (0.4-2.0) mmol/L Calcium (8.5-10.1) mg/dl Magnesium (1.7-2.4) mg/dl Total Bilirubin (0.2-1.0) mg/dl AST (13-39) U/L ALT (7-52) U/L Alkaline Phosphatase (34-104) U/L Troponin I High Sens 24.7 H (0-20) pg/ml B-Natriuretic Peptide (0-100) pg/ml Total Protein (6.0-8.3) gm/dl Albumin (3.4-5.0) gm/dl Globulin (2.5-4.0) gm/dl Albumin/Globulin Ratio (0.9-2) 08/04/21 08/04/21 08/04/21 Range/Units 17:20 17:20 17:20 WBC (4.8-10.8) K/uL RBC (4.7-6.1) M/uL Hgb (14.0-18.0) g/dL Hct (42-52) % MCV (80-100) fL MCH (25-34) pg MCHC (32-36) g/dL RDW Std Deviation (36.4-46.3) fL RDW Coeff of Jorge A (11.5-14.5) % Plt Count (130-400) K/uL MPV (7.4-10.4) fL Immature Gran % (Auto) % Neut % (Auto) % Lymph % (Auto) % [place] % (Auto) % Eos % (Auto) % Baso % (Auto) % Neut # (Auto) (1.4-6.5) K/uL Lymph # (Auto) (1.2-3.4) K/uL [place] # (Auto) (0.11-0.59) K/uL Eos # (Auto) (0-0.5) K/uL Baso # (Auto) (0-0.2) K/uL Immature Gran # (Auto) (0.00-0.02) K/uL PT (9.0-12.0) Seconds INR (0.9-1.1) APTT (21.0-31.0) Seconds PTT Ratio VBG pH (7.36-7.41) VBG pCO2 (38-50) mmHg VBG pO2 mmHg VBG HCO3 mmol/L VBG O2 Saturation % VBG Base Excess mEq/L Barometric Pressure mm/Hg Sodium 135 L (136-145) mmol/L Potassium (3.5-5.1) mmol/L Chloride 93 L (98-107) mmol/L Carbon Dioxide 31 (21-32) mmol/L Anion Gap 11 (3-11) BUN 55 H (6-23) mg/dl Creatinine 9.16 H* (0.6-1.4) mg/dl Est Cr Clr Drug Dosing 11.0 ml/min Est GFR ( Amer) 6.2 ml/min Est GFR (Non-Af Amer) 5.4 ml/min BUN/Creatinine Ratio 6.0 L (10-20) Glucose 162 H (70-99(Fasting)) mg/dl Lactate 0.9 (0.4-2.0) mmol/L Calcium 9.4 (8.5-10.1) mg/dl Magnesium 2.4 (1.7-2.4) mg/dl Total Bilirubin 0.7 (0.2-1.0) mg/dl AST (13-39) U/L ALT 10 (7-52) U/L Alkaline Phosphatase 107 H (34-104) U/L Troponin I High Sens (0-20) pg/ml B-Natriuretic Peptide 1250 H (0-100) pg/ml Total Protein 7.9 (6.0-8.3) gm/dl Albumin 4.2 (3.4-5.0) gm/dl Globulin 3.7 (2.5-4.0) gm/dl Albumin/Globulin Ratio 1.1 (0.9-2) 08/04/21 08/04/21 Range/Units 17:42 18:25 WBC (4.8-10.8) K/uL RBC (4.7-6.1) M/uL Hgb (14.0-18.0) g/dL Hct (42-52) % MCV (80-100) fL MCH (25-34) pg MCHC (32-36) g/dL RDW Std Deviation (36.4-46.3) fL RDW Coeff of Jorge A (11.5-14.5) % Plt Count (130-400) K/uL MPV (7.4-10.4) fL Immature Gran % (Auto) % Neut % (Auto) % Lymph % (Auto) % [place] % (Auto) % Eos % (Auto) % Baso % (Auto) % Neut # (Auto) (1.4-6.5) K/uL Lymph # (Auto) (1.2-3.4) K/uL [place] # (Auto) (0.11-0.59) K/uL Eos # (Auto) (0-0.5) K/uL Baso # (Auto) (0-0.2) K/uL Immature Gran # (Auto) (0.00-0.02) K/uL PT (9.0-12.0) Seconds INR (0.9-1.1) APTT (21.0-31.0) Seconds PTT Ratio VBG pH 7.41 (7.36-7.41) VBG pCO2 50 (38-50) mmHg VBG pO2 40 mmHg VBG HCO3 31 mmol/L VBG O2 Saturation 73.6 % VBG Base Excess 5.2 mEq/L Barometric Pressure 730.8 mm/Hg Sodium (136-145) mmol/L Potassium 6.7 H* (3.5-5.1) mmol/L Chloride (98-107) mmol/L Carbon Dioxide (21-32) mmol/L Anion Gap (3-11) BUN (6-23) mg/dl Creatinine (0.6-1.4) mg/dl Est Cr Clr Drug Dosing ml/min Est GFR ( Amer) ml/min Est GFR (Non-Af Amer) ml/min BUN/Creatinine Ratio (10-20) Glucose (70-99(Fasting)) mg/dl Lactate (0.4-2.0) mmol/L Calcium (8.5-10.1) mg/dl Magnesium (1.7-2.4) mg/dl Total Bilirubin (0.2-1.0) mg/dl AST 9 L (13-39) U/L ALT (7-52) U/L Alkaline Phosphatase (34-104) U/L Troponin I High Sens (0-20) pg/ml B-Natriuretic Peptide (0-100) pg/ml Total Protein (6.0-8.3) gm/dl Albumin (3.4-5.0) gm/dl Globulin (2.5-4.0) gm/dl Albumin/Globulin Ratio (0.9-2) Administered Medications Amlodipine Besylate (Amlodipine Besylate 5 Mg Tab) 10 mg PO [facility] Stop: 09/03/21 21:24 Last Admin: 08/05/21 00:02 Dose: Not Given Documented by: [id number] Aspirin (Aspirin 81 Mg Ectab) 81 mg PO [facility] Stop: 09/03/21 21:44 Last Admin: 08/05/21 00:04 Dose: Not Given Documented by: [id number] Buspirone HCl (Buspirone 5 Mg Tab) 5 mg PO BID [facility] Stop: 09/03/21 21:24 Last Admin: 08/05/21 08:11 Dose: 5 mg Documented by: [id number] Admin: 08/05/21 00:02 Dose: Not Given Documented by: [id number] Carvedilol (Carvedilol 12.5 Mg Tab) 12.5 mg PO BID [facility] Stop: 09/03/21 21:24 Last Admin: 08/05/21 08:12 Dose: Not Given Documented by: [id number] Admin: 08/05/21 00:02 Dose: Not Given Documented by: [id number] Escitalopram Oxalate (Escitalopram Oxalate 10 Mg Tab) 10 mg PO [facility] Stop: 09/04/21 08:59 Last Admin: 08/05/21 08:11 Dose: 10 mg Documented by: [id number] Furosemide (Furosemide 80 Mg Tab) 80 mg PO [id number] [facility] Stop: 09/03/21 21:24 Last Admin: 08/05/21 08:09 Dose: 80 mg Documented by: [id number] Admin: 08/05/21 00:03 Dose: Not Given Documented by: [id number] Gabapentin (Gabapentin 300 Mg Cap) 300 mg PO HS [facility] Stop: 09/03/21 21:24 Last Admin: 08/05/21 00:03 Dose: Not Given Documented by: [id number] Insulin Aspart (Insulin Aspart Per Unit) 0 units SC ACHS [facility] Stop: 09/03/21 21:24 Last Admin: 08/05/21 16:48 Dose: 3 units Documented by: [id number] Cosigned by: [id number] Admin: 08/05/21 11:30 Dose: Not Given Documented by: [id number] Admin: 08/05/21 08:04 Dose: 3 units Documented by: [id number] Cosigned by: [id number] Admin: 08/05/21 00:03 Dose: Not Given Documented by: [id number] Insulin Glargine (Insulin Glargine Solostar 100 Units/Ml 3 Ml Pen) 16 units SQ QAM [facility] Stop: 09/04/21 08:59 Last Admin: 08/05/21 08:13 Dose: 16 units Documented by: [id number] Cosigned by: [id number] Levothyroxine Sodium (Levothyroxine Sodium 125 Mcg Tablet) 125 mcg PO DAILYBB [facility] Stop: 09/04/21 06:29 Last Admin: 08/05/21 06:11 Dose: Not Given Documented by: [id number] Losartan Potassium (Losartan Potassium 50 Mg Tab) 50 mg PO QAM [facility] Stop: 09/04/21 08:59 Last Admin: 08/05/21 08:12 Dose: 50 mg Documented by: [id number] Pantoprazole Sodium (Pantoprazole 40 Mg Tab) 40 mg PO QAM [facility] Stop: 09/04/21 08:59 Last Admin: 08/05/21 08:09 Dose: 40 mg Documented by: [id number] Sevelamer HCl (Sevelamer Hcl 800 Mg Tablet) 2,400 mg PO TIDM [facility] Stop: 09/04/21 07:59 Last Admin: 08/05/21 12:51 Dose: 2,400 mg Documented by: [id number] Admin: 08/05/21 08:10 Dose: 2,400 mg Documented by: [id number] Simvastatin (Simvastatin 20 Mg Tab) 20 mg PO [facility] Stop: 09/03/21 21:24 Last Admin: 08/05/21 00:04 Dose: Not Given Documented by: [id number] Discontinued Medications Epoetin Sebastian (Epoetin Sebastian 4,000 Unit/Ml Vial) 4,000 units IV [id number] [facility] Stop: 08/05/21 16:00 Last Admin: 08/05/21 12:01 Dose: 4,000 units Documented by: [id number] Furosemide (Furosemide 40 Mg/4 Ml Vial) 80 mg IV ONE ONE Stop: 08/04/21 16:58 Last Admin: 08/04/21 17:24 Dose: 80 mg Documented by: [id number] Heparin Sodium (Porcine) (Heparin Sod (Porcine) 1000 Unit/Ml) 2,000 units IV NOW ONE Stop: 08/04/21 18:19 Last Admin: 08/04/21 23:11 Dose: Not Given Documented by: [id number] Heparin Sodium (Porcine) (Heparin Sod (Porcine) 1000 Unit/Ml) 2,000 units IV 08[facility] Stop: 08/05/21 16:00 Last Admin: 08/05/21 10:21 Dose: Not Given Documented by: [id number] Piperacillin Sod/Tazobactam Sod (Zosyn) 4.5 gm in 120 mls @ 240 mls/hr IV NOW ONE Stop: 08/04/21 17:26 Last Infusion: 08/04/21 18:40 Dose: 0 mls/hr Documented by: [id number] Admin: 08/04/21 18:10 Dose: 240 mls/hr Documented by: [id number] Piperacillin Sod/Tazobactam (Sod 4.5 gm/ Dextrose) 120 mls @ 30 mls/hr IV Q8H [facility]; Protocol Stop: 08/07/21 00:00 Last Infusion: 08/05/21 12:40 Dose: 0 mls/hr Documented by: [id number] Admin: 08/05/21 08:20 Dose: 30 mls/hr Documented by: [id number] Infusion: 08/05/21 04:15 Dose: 0 mls/hr Documented by: [id number] Admin: 08/05/21 00:06 Dose: 30 mls/hr Documented by: [id number] Nitroglycerin (Nitroglycerin 2% Ointment 30gm Tube) 1 inch EXT NOW STA Stop: 08/04/21 17:10 Last Admin: 08/04/21 17:21 Dose: 1 inch Documented by: [id number] Imaging Data Radiologist's Impression: Chest X-Ray 08/04/21 16:57 XR chest 1V portable HISTORY: Shortness of breath. SEPSIS COMPARISON: Chest 06/23/2021. FINDINGS: No pneumothorax. There is right greater than left interstitial/vascular thickening consistent with asymmetric pulmonary edema. Probable small left pleural effusion. The heart remains mildly enlarged. IMPRESSION: Asymmetric pulmonary edema and a small left pleural effusion. ACT 112: Negative or not required by law. Electronically signed by: Leopoldo Lucero M.D. 08/04/2021 5:58 PM Discharge Plan Visit Data Chief Complaint: Illness ED Provider: Garfield Gregory Discharge Problem: Acute hypoxemic respiratory failure, Hyperkalemia, Volume overload, ESRD (end stage renal disease) on dialysis, Acute dyspnea Patient Disposition: Admitted As Inpatient Discharge Instructions Interventions: ED Discharge Assessment Last Done: 08/04/21 21:01
[2021-08-04] MEDS ORDERED: FUROSEMIDE 40 MG/4 ML VIAL IV ONE (16:57)
[2021-08-04] MEDS ORDERED: PIPERACILL/TAZOBAC CONSULT ACTIVE PRN (16:57)
[2021-08-04] MEDS ORDERED: PIPERACILLIN/TAZOBACTAM 4.5 GM/120 ML BAG IV ONE (16:57)
[2021-08-04] MEDS ORDERED: NITROGLYCERIN 2% OINTMENT 30GM TUBE EXT STA (17:09)
[2021-08-04 17:38] LABS: Basophils # (auto) 0.04 K/uL (0-0.2); Basophils % (auto) 0.2 %; Eosinophils # (auto) 0.03 K/uL (0-0.5); Eosinophils % (auto) 0.2 %; Hematocrit (blood only) 36.6 % (42-52); Hemoglobin 11.8 g/dL (14.0-18.0); Immature Granulocytes # (auto) 0.07 K/uL (0.00-0.02); Immature Granulocytes % (auto) 0.4 %; Lymphocytes % (auto) 7.3 %; Mean Corpuscular Hgb Conc 32.2 g/dL (32-36); Mean Corpuscular Volume 99.2 fL (80-100); Mean Platelet Volume 10.4 fL (7.4-10.4); Monocytes # (auto) 0.62 K/uL (0.11-0.59); Monocytes % (auto) 3.8 %; Neutrophils # (auto) 14.44 K/uL (1.4-6.5); Neutrophils % (auto) 88.1 %; Platelet Count 270 K/uL (130-400); RDW Coefficient of Variation 14.6 % (11.5-14.5); Red Blood Count 3.69 M/uL (4.7-6.1)
--- NOTE | 2021-08-04 17:59 | XRay Report ---
XR chest 1V portable HISTORY: Shortness of breath. SEPSIS COMPARISON: Chest 06/23/2021. FINDINGS: No pneumothorax. There is right greater than left interstitial/vascular thickening consiste nt with asymmetric pulmonary edema. Probable small left pleural effusion. The heart remains mildly en larged. IMPRESSION: Asymmetric pulmonary edema and a small left pleural effusion. ACT 112: Negative or not required by law. Electronically signed by: Leopoldo Lucero M.D. 08/04/2021 5:58 PM
[2021-08-04 18:14] LABS: Base Excess VBG 5.2 mEq/L; Oxygen Saturation VBG 73.6 %; pH VBG 7.41 (7.36-7.41)
[2021-08-04 18:16] LABS: Albumin Globulin Ratio 1.1 (0.9-2); Albumin Level 4.2 gm/dl (3.4-5.0); Bilirubin,Total 0.7 mg/dl (0.2-1.0); Calcium 9.4 mg/dl (8.5-10.1); Est GFR (African American) 6.2 ml/min; Est GFR (Non-African American) 5.4 ml/min; Globulin 3.7 gm/dl (2.5-4.0); Magnesium 2.4 mg/dl (1.7-2.4); Total Protein 7.9 gm/dl (6.0-8.3)
[2021-08-04 18:18] LABS: INR 1.3 (0.9-1.1); Partial Thromboplastin Ratio 1.1; Partial Thromboplastin Time 29.9 Seconds (21.0-31.0); Prothrombin Time 14.1 Seconds (9.0-12.0)
[2021-08-04] MEDS ORDERED: HEPARIN SOD (PORCINE) 1000 UNIT/ML IV ONE (18:18)
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
[2021-08-04 19:16] LABS: Potassium 6.7 mmol/L (3.5-5.1)
--- NOTE | 2021-08-04 19:43 | History & Physical Report ---
Date of Service August 04, 2021 Assessment & Plan (1) ESRD needing dialysis: Plan: ESRD needing dialysis/fluid overload- Patient was taken emergently to dialysis under the orders of nephrology Dr. Audi Francis Continue all usual medications: Amlodipine, aspirin, carvedilol, furosemide, losartan, [place] (2) Controlled type 2 diabetes mellitus with kidney complication, without long- term current use of insulin: Plan: Placed on Accu-Cheks before meals and at bedtime with NovoLog coverage per scale continue glargine 16 units subcu every morning Check hemoglobin A1c (3) Fluid overload: Plan: See above (4) Hypothyroidism: Plan: Continue levothyroxine 25 mcg every morning (5) Hypertension: Plan: Continue medications as noted above History of Present Illness Chief Complaint: The patient is brought to the emergency department from home via ambulance, due to shortness of breath, dyspnea exertion, generalized weakness and fatigue. Primary Care Provider: Veto Gan DO The patient is a 66-year-old male with a past medical history including ESRD on HD, diabetes mellitus, peripheral neuropathy, hypothyroidism, hypertension, Molina's thyroiditis, fluid overload, GERD, SNHL bilaterally, pulmonary edema diabetic ulcers of feet, JANET and anemia chronic disease. He presents with symptoms as noted above. Patient typically receives at dialysis on Tuesday, and Tuesday, and was due for dialysis 3 days ago, Tuesday, but did not go due to not feeling well. The patient is being mid to the hospital for emergent dialysis Allergies Allergy/AdvReac Type Severity Reaction Status Date / Time lactose Allergy Intermediate Gastrointestinal Verified 08/04/21 19:14 Upset Home Medications Medication Instructions Recorded Confirmed Type nitroglycerin 0.4 mg sublingual 0.4 mg SUBLINGUAL DIRECTED PRN 07/11/20 08/04/21 History tablet loperamide 2 mg capsule (Imodium 2 mg PO DIRECTED PRN 01/05/21 08/04/21 History A-D) HYDRAULIC KHADAR LIFT #1 ea 01/26/21 07/22/21 Rx FreeStyle Virgil 14 Day Sensor #6 ea NS 02/24/21 07/22/21 Rx (flash glucose sensor) FreeStyle Virgil 14 Day [place] #1 ea NS 03/08/21 07/22/21 Rx (flash glucose scanning reader) nystatin 100,000 unit/gram topical 1 applic TOPICAL BID PRN 04/04/21 08/04/21 History powder sevelamer carbonate 800 mg tablet 2,400 mg PO TIDM 04/04/21 08/04/21 History buspirone 10 mg tablet 5 mg PO BID 05/09/21 08/04/21 History escitalopram oxalate 10 mg tablet 10 mg PO QAM 05/09/21 08/04/21 History simvastatin 20 mg tablet 20 mg PO HS 05/12/21 08/04/21 History furosemide 80 mg tablet (Lasix) 80 mg PO BID #180 tab 06/08/21 08/04/21 Rx carvedilol 12.5 mg tablet 12.5 mg PO BID 06/11/21 08/04/21 History omeprazole 20 mg capsule,delayed 20 mg PO QAM 06/11/21 08/04/21 History release fluticasone propionate 50 2 spray INTRANASAL DAILY #16 g 06/22/21 08/04/21 Rx mcg/actuation nasal spray,suspension amlodipine 10 mg tablet 10 mg PO HS #90 tab 07/02/21 08/04/21 Rx aspirin 81 mg chewable tablet 81 mg PO HS #90 tab 07/02/21 08/04/21 Rx levothyroxine 125 mcg tablet 125 mcg PO QAM #90 tab 07/02/21 08/04/21 Rx losartan 50 mg tablet 50 mg PO QAM #90 tab 07/02/21 08/04/21 Rx gabapentin 100 mg capsule 300 mg PO HS #270 cap 07/07/21 08/04/21 Rx insulin glargine 100 unit/mL (3 16 unit SUBCUT QAM 08/04/21 08/04/21 History mL) subcutaneous pen (Lantus Solostar U-100 Insulin) Past Med/Surg History Medical History Anemia in chronic kidney disease Anxiety Bedbound Depression DM type 2 (diabetes mellitus, type 2) Dyslipidemia Dysphagia ESRD (end stage renal disease) on dialysis started in 2018 - , , Sat - [facility] in [place]. 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 recommends 5xwk but pt refuses) Fistula LUE GERD (gastroesophageal reflux disease) Hypothyroidism Limb alert care status LUE Morbid obesity with BMI of 40.0-44.9, adult Obstructive sleep apnea [id number] On home oxygen therapy 2L n/c with cpap at HS Osteoarthritis Peripheral arterial disease Peripheral neuropathy bilt legs/feet Secondary hyperparathyroidism of renal origin Tremor Unable to ambulate khadar lift Wounds, multiple x 2 LUE, left ankle, multiple toes left side -- wound clinic pt Surgical History History of bilateral cataract extraction History of cardiac cath 01/2018 "about 2-3 weeks"; no stents placed @ [facility] by Dr. Coronel History of carpal tunnel release R wrist History of colonoscopy History of esophagogastroduodenoscopy (EGD) History of repair of anterior cruciate ligament of left knee History of repair of anterior cruciate ligament of right knee History of tonsillectomy History of tooth extraction wisdom teeth Family History Mother Family history of diabetes mellitus Grandmother Family history of diabetes mellitus maternal Other Colorectal cancer Inflammatory bowel disease Melanoma Social History Smoking Status: Current every day smoker Tobacco Type: Cigarettes Age Started Using Tobacco: 15; Cigarettes Per Day: 1 ppd; Second Hand Exposure: Yes (as a child); Hx Alcohol Use: Yes Alcohol type: beer Hx Substance Use: No Preferred Language: Namibian Communication Ability: Effective Desilverizer Required: No Beliefs That Will Affect Care: None marital status: Single Current Living Situation: Family Current Living Situation Comment: pt lives with son current occupational status: retired How many Children do You have: 2 Feels Safe at Home: Yes Seatbelt Use: always Assistive Devices: CPAP, Oxygen - Continuous and Wheelchair Review of Systems Review of Systems: Unobtainable due to cognitive status Physical Exam Physical Exam: The patient is lethargic, obese, on BiPAP and in moderate respiratory distress HEENT--PERRL, EOMI, mucous membranes and oropharynx dry. Neck--supple. No JVD. No bruits. Thyroid normal, trachea midline, no adenopathy. Heart--normal S1 and S2. No murmurs, rubs or gallops. Lungs--coarse breath sounds with wheezes bilaterally bilaterally. Moderate respiratory distress with accessory muscle use. Abdomen--normal bowel sounds and soft. Nontender. Nondistended. Morbidly obese Extremities--no cyanosis or clubbing. 2+ bilateral pretibial pitting edema Dermatologic--normal skin turgor, normal color, no abnormal lymph nodes, no rash. Neurologic--limited exam. Rheumatologic--limited exam Psychiatric--lethargic Results & Data Results & Data ([facility]) Vital Signs (Past 12 Hours) Vital Signs Temp Pulse Pulse Resp BP BP Pulse Ox 08/04/21 18:45 12 136/63 97 08/04/21 18:30 61 23 154/67 H 96 08/04/21 18:15 64 19 155/73 H 96 08/04/21 18:00 66 24 160/68 H 94 08/04/21 17:45 66 21 155/73 H 93 08/04/21 17:30 67 27 H 95 08/04/21 17:29 94 08/04/21 17:15 67 25 H 08/04/21 17:09 67 17 99 08/04/21 17:00 70 27 H 170/88 H 100 08/04/21 16:45 71 28 H 96 08/04/21 16:40 37.6 C H 72 26 H 179/83 H 97 Laboratory Results Laboratory Results WBC 16.40 K/uL (4.8-10.8) H 08/04/21 17:20 RBC 3.69 M/uL (4.7-6.1) L 08/04/21 17:20 Hgb 11.8 g/dL (14.0-18.0) L 08/04/21 17:20 Hct 36.6 % (42-52) L 08/04/21 17:20 MCV 99.2 fL (80-100) 08/04/21 17:20 MCH 32.0 pg (25-34) 08/04/21 17:20 MCHC 32.2 g/dL (32-36) 08/04/21 17:20 RDW Std Deviation 52.0 fL (36.4-46.3) H 08/04/21 17:20 RDW Coeff of Jorge A 14.6 % (11.5-14.5) H 08/04/21 17:20 Plt Count 270 K/uL (130-400) 08/04/21 17:20 MPV 10.4 fL (7.4-10.4) 08/04/21 17:20 Immature Gran % (Auto) 0.4 % 08/04/21 17:20 Neut % (Auto) 88.1 % 08/04/21 17:20 Lymph % (Auto) 7.3 % 08/04/21 17:20 Harris % (Auto) 3.8 % 08/04/21 17:20 Eos % (Auto) 0.2 % 08/04/21 17:20 Baso % (Auto) 0.2 % 08/04/21 17:20 Neut # (Auto) 14.44 K/uL (1.4-6.5) H 08/04/21 17:20 Lymph # (Auto) 1.20 K/uL (1.2-3.4) 08/04/21 17:20 Harris # (Auto) 0.62 K/uL (0.11-0.59) H 08/04/21 17:20 Eos # (Auto) 0.03 K/uL (0-0.5) 08/04/21 17:20 Baso # (Auto) 0.04 K/uL (0-0.2) 08/04/21 17:20 Immature Gran # (Auto) 0.07 K/uL (0.00-0.02) H 08/04/21 17:20 PT 14.1 Seconds (9.0-12.0) H 08/04/21 17:20 INR 1.3 (0.9-1.1) H 08/04/21 17:20 APTT 29.9 Seconds (21.0-31.0) 08/04/21 17: PTT Ratio 1.1 08/04/21 17:20 VBG pH 7.41 (7.36-7.41) 08/04/21 17:42 VBG pCO2 50 mmHg (38-50) 08/04/21 17:42 VBG pO2 40 mmHg 08/04/21 17:42 VBG HCO3 31 mmol/L 08/04/21 17:42 VBG O2 Saturation 73.6 % 08/04/21 17:42 VBG Base Excess 5.2 mEq/L 08/04/21 17:42 Barometric Pressure 730.8 mm/Hg 08/04/21 17: Sodium 135 mmol/L (136-145) L 08/04/21 17:20 Potassium 6.7 mmol/L (3.5-5.1) H* 08/04/21 18:25 Chloride 93 mmol/L (98-107) L 08/04/21 17:20 Carbon Dioxide 31 mmol/L (21-32) 08/04/21 17:20 Anion Gap 11 (3-11) 08/04/21 17:20 BUN 55 mg/dl (6-23) H 08/04/21 17:20 Creatinine 9.16 mg/dl (0.6-1.4) H* 08/04/21 17:20 Est Cr Clr Drug Dosing 11.0 ml/min 08/04/21 17:20 Est GFR ( Amer) 6.2 ml/min 08/04/21 17:20 Est GFR (Non-Af Amer) 5.4 ml/min 08/04/21 17:20 BUN/Creatinine Ratio 6.0 (10-20) L 08/04/21 17:20 Glucose 162 mg/dl (70-99(Fasting)) H 08/04/21 17:20 Lactate 0.9 mmol/L (0.4-2.0) 08/04/21 17:20 Calcium 9.4 mg/dl (8.5-10.1) 08/04/21 17:20 Magnesium 2.4 mg/dl (1.7-2.4) 08/04/21 17:20 Total Bilirubin 0.7 mg/dl (0.2-1.0) 08/04/21 17:20 AST 9 U/L (13-39) L 08/04/21 18:25 ALT 10 U/L (7-52) 08/04/21 17:20 Alkaline Phosphatase 107 U/L (34-104) H 08/04/21 17:20 Troponin I High Sens 24.7 pg/ml (0-20) H 08/04/21 17:20 B-Natriuretic Peptide 1250 pg/ml (0-100) H 08/04/21 17:20 Total Protein 7.9 gm/dl (6.0-8.3) 08/04/21 17:20 Albumin 4.2 gm/dl (3.4-5.0) 08/04/21 17:20 Globulin 3.7 gm/dl (2.5-4.0) 08/04/21 17:20 Albumin/Globulin Ratio 1.1 (0.9-2) 08/04/21 17:20 SARS-CoV-2, RNA, NAAT NEGATIVE (NEGATIVE) 08/04/21 Unknown Impressions Chest X-Ray 08/04/21 16:57 XR chest 1V portable HISTORY: Shortness of breath. SEPSIS COMPARISON: Chest 06/23/2021. FINDINGS: No pneumothorax. There is right greater than left interstitial/vascular thickening consistent with asymmetric pulmonary edema. Probable small left pleural effusion. The heart remains mildly enlarged. IMPRESSION: Asymmetric pulmonary edema and a small left pleural effusion. ACT 112: Negative or not required by law. Electronically signed by: Leopoldo Lucero M.D. 08/04/2021 5:58 PM Code Status & VTE Plan Code Status Full code VTE Prophylaxis Plan VTE Prophylaxis will be ordered: Yes PG Care Time/CCT Total # of Minutes Spent Total Time Spent with Patient: Total time spent is greater than 50% in coordination of care (as documented) at patient's floor/unit and/or counseling patient: Coding Level of Care Code 26418 Initial Inpt Care Lvl 3 Diagnoses ESRD needing dialysis N18.6; Z99.2 Controlled type 2 diabetes mellitus with kidney complication, without long-term current use of insulin E11.29 Fluid overload E87.70 Hypervolemia type: unspecified Hypothyroidism E03.9 Hypothyroidism type: unspecified Hypertension I10 Hypertension type: essential hypertension (1) Fluid overload Hypervolemia type: unspecified Qualified Code(s): E87.70 - Fluid overload, unspecified (2) Hypothyroidism Hypothyroidism type: unspecified Qualified Code(s): E03.9 - Hypothyroidism, unspecified (3) Hypertension Hypertension type: essential hypertension Qualified Code(s): I10 - Essential (primary) hypertension
[2021-08-04] MEDS ORDERED: NITROGLYCERIN SL 0.4 MG/TAB TAB SL PRN (21:25)
[2021-08-04] MEDS ORDERED: LOPERAMIDE HCL 2 MG CAP PO PRN (21:25)
[2021-08-04] MEDS ORDERED: CARBOHYDRATES FOR HYPOGLYCEMIA PO PRN (21:25)
[2021-08-04] MEDS ORDERED: ACETAMINOPHEN 325 MG TAB PO PRN (21:25)
[2021-08-04] MEDS ORDERED: DEXTROSE 50% 50 ML SYRINGE IV PRN (21:25)
[2021-08-04] MEDS ORDERED: GLUCAGON FOR INJ 1 MG VIAL SQ PRN (21:25)
[2021-08-04] MEDS ORDERED: GLUCOSE 40% GEL 15 GM TUBE PO PRN (21:25)
[2021-08-04] MEDS ORDERED: ONDANSETRON INJ 2 MG/ML 2 ML VIAL IV PRN (21:25)
[2021-08-04] MEDS ORDERED: GLUCOSE 10 TABS/TUBE PO PRN (21:25)
[2021-08-05] MEDS: amLODIPine BESYLATE 5 MG TAB PO SCH ×2 (00:02→19:36)
[2021-08-05] MEDS: carvediloL 12.5 MG TAB PO SCH ×3 (00:02→19:37)
[2021-08-05] MEDS: busPIRone 5 MG TAB PO SCH ×3 (00:02→19:37)
[2021-08-05] MEDS: FUROSEMIDE 80 MG TAB PO SCH ×3 (00:03→19:48)
[2021-08-05] MEDS: GABAPENTIN 300 MG CAP PO SCH ×2 (00:03→19:38)
[2021-08-05] MEDS: INSULIN ASPART PER UNIT SC SCH ×5 (00:03→19:40)
[2021-08-05] MEDS: ASPIRIN 81 MG ECTAB PO SCH ×2 (00:04→19:35)
[2021-08-05] MEDS: SIMVASTATIN 20 MG TAB PO SCH ×2 (00:04→19:39)
[2021-08-05] MEDS: PIPERACILLIN/TAZOBACTAM 4.5 GM in DEXTROSE 5% 100 ML IV SCH ×2 (00:06→08:20)
[2021-08-05] MEDS: LEVOTHYROXINE SODIUM 125 MCG TABLET PO SCH (06:11)
[2021-08-05 07:20] LABS: Basophils # (auto) 0.04 K/uL (0-0.2); Basophils % (auto) 0.4 %; Eosinophils # (auto) 0.19 K/uL (0-0.5); Hematocrit (blood only) 32.5 % (42-52); Hemoglobin 10.1 g/dL (14.0-18.0); Immature Granulocytes # (auto) 0.03 K/uL (0.00-0.02); Immature Granulocytes % (auto) 0.3 %; Lymphocytes % (auto) 18.3 %; Mean Corpuscular Hemoglobin 31.9 pg (25-34); Mean Corpuscular Hgb Conc 31.1 g/dL (32-36); Mean Corpuscular Volume 102.5 fL (80-100); Mean Platelet Volume 10.1 fL (7.4-10.4); Monocytes # (auto) 0.48 K/uL (0.11-0.59); Monocytes % (auto) 5.2 %; Neutrophils # (auto) 6.87 K/uL (1.4-6.5); Neutrophils % (auto) 73.8 %; Platelet Count 213 K/uL (130-400); RDW Coefficient of Variation 14.7 % (11.5-14.5); RDW Standard Deviation 55.1 fL (36.4-46.3); Red Blood Count 3.17 M/uL (4.7-6.1); White Blood Count 9.31 K/uL (4.8-10.8)
[2021-08-05 07:26] LABS: INR 1.4 (0.9-1.1); Partial Thromboplastin Ratio 1.2; Partial Thromboplastin Time 33.8 Seconds (21.0-31.0); Prothrombin Time 14.2 Seconds (9.0-12.0)
[2021-08-05 07:30] LABS: Estimated Average Glucose 140 mg/dl; Hemoglobin A1C 6.5 % (4.5-5.6)
[2021-08-05 07:51] LABS: Albumin Globulin Ratio 1.1 (0.9-2); Albumin Level 3.7 gm/dl (3.4-5.0); BUN Creatinine Ratio 5.5 (10-20); Bilirubin,Total 0.7 mg/dl (0.2-1.0); Calcium 9.3 mg/dl (8.5-10.1); Creatinine Clr Calc Pharmacy 12.9 ml/min; Est GFR (African American) 7.9 ml/min; Est GFR (Non-African American) 6.8 ml/min; Globulin 3.4 gm/dl (2.5-4.0); Magnesium 2.3 mg/dl (1.7-2.4); Potassium 5.8 mmol/L (3.5-5.1); Total Protein 7.1 gm/dl (6.0-8.3)
[2021-08-05] MEDS: PANTOprazole 40 MG TAB PO SCH (08:09)
[2021-08-05] MEDS: SEVELAMER HCL 800 MG TABLET PO SCH ×3 (08:10→19:34)
[2021-08-05] MEDS: ESCITALOPRAM OXALATE 10 MG TAB PO SCH (08:11)
[2021-08-05] MEDS: LOSARTAN POTASSIUM 50 MG TAB PO SCH (08:12)
[2021-08-05] MEDS: INSULIN GLARGINE SOLOSTAR 100 UNITS/ML 3 ML PEN SQ SCH (08:13)
[2021-08-05] MEDS ORDERED: EPOETIN ALFA 4,000 UNIT/ML VIAL IV SCH (08:45)
[2021-08-05] MEDS ORDERED: HEPARIN SOD (PORCINE) 1000 UNIT/ML IV SCH (08:45)
--- NOTE | 2021-08-05 10:21 | Nephrology Progress Note ---
Date of Service August 05, 2021 Assessment & Plan (1) ESRD (end stage renal disease) on dialysis: Plan: ESRD on HD TTS. Missed outpatient treatment yesterday due to vomiting and nausea. Completed urgent HD overnight for hyperkalemia and symptomatic volume overload with pulmonary edema - 2 hrs for UF 3 L. Will provide an additional 2 hours of HD today in the inpatient HD unit. Importance of adherence to fluid and potassium restriction as well as avoiding missed HD was stressed. Sebastián expressed understanding. Medications are appropriately dosed for kidney dysfunction. Renal diet. (2) Anemia in chronic kidney disease: Plan: Epogen 4000 units to be provided with HD today. Some blood was not able to be returned with HD yesterday. Hgb acceptable at 10. (3) Goals of care, counseling/discussion: Plan: Notable recent progressive decline in health and functional status. Sebastián is struggling to cope with current functional status and quality of life. He remains a full code but increasingly talks about stopping dialysis. This morning, Sebastián reports feeling significantly better than he did yesterday and states that he regrets missing his outpatient treatment yesterday. He does feel that restarting medical marijuana would help with his symptoms. He has an Rx but had stopped use of the medication after concerns related to somnolence and mental status changes with therapy. He plans to discuss a dose adjustment with his sister and the prescribing physician. (4) Fluid overload: Plan: Significant improvement with HD yesterday. Will attempt additional UF today, as tolerated. (5) Debilitated: Admission and Anticipated Discharge Date Admission Date: August 04, 2021 Subjective Tolerated HD well overnight. Unfortunately, clotting early in treatment lead to loss of tubing and ~100 ml of blood. After initial clotting, treatment was completed without complications and Sebastián tolerated treatment well. UF 3 L. Sebastián feels well this morning and was asking to be discharged today. He was agreeable to additional HD for added clearance and UF as tolerated. Review of Systems Review of Systems: All systems reviewed & are unremarkable except as noted in HPI & below Physical Exam Constitutional: well developed and + morbidly obese; no acute distress Eyes: no scleral abnormality and no corneal abnormality Neck: normal visual inspection and trachea midline Respiratory: normal respiratory effort Auscultation: + rales Cardiovascular: Rate/Rhythm: regular rate Heart Sounds: normal S1 and normal S2 Extremities: + edema (predominately in abdomen with trace to 1+ BL LE) and + AV fistula Musculoskeletal: Extremities: no cyanosis and no clubbing Skin: normal turgor; no lesions Neurologic: Motor/Sensory: no tremor and no asterixis Psychiatric: Orientation: alert and oriented x 3 Results & Data ([facility]) Vital Signs (Past 12 Hours) Vital Signs Temp Pulse Pulse Resp BP Pulse Ox 08/05/21 08:00 36.8 C 57 L 23 127/63 95 08/05/21 07:33 72 22 92 08/05/21 07:32 53 L 08/05/21 04:05 36.8 C 52 L 16 132/71 100 08/05/21 02:28 57 L 22 98 08/05/21 01:30 105 H 08/05/21 00:41 36.5 C 68 20 122/68 99 08/04/21 23:11 36.5 C 56 L 20 122/68 99 08/04/21 22:50 59 L 24 96 08/04/21 22:34 37 C 54 L 108/62 08/04/21 22:30 20 Laboratory Results Laboratory Results - last 24 hr 08/04/21 08/04/21 08/04/21 17:20 17:20 17:20 WBC 16.40 H RBC 3.69 L Hgb 11.8 L Hct 36.6 L MCV 99.2 MCH 32.0 MCHC 32.2 RDW Std Deviation 52.0 H RDW Coeff of Jorge A 14.6 H Plt Count 270 MPV 10.4 Immature Gran % (Auto) 0.4 Neut % (Auto) 88.1 Lymph % (Auto) 7.3 Mayes % (Auto) 3.8 Eos % (Auto) 0.2 Baso % (Auto) 0.2 Neut # (Auto) 14.44 H Lymph # (Auto) 1.20 Mayes # (Auto) 0.62 H Eos # (Auto) 0.03 Baso # (Auto) 0.04 Immature Gran # (Auto) 0.07 H PT 14.1 H INR 1.3 H APTT 29.9 PTT Ratio 1.1 VBG pH VBG pCO2 VBG pO2 VBG HCO3 VBG O2 Saturation VBG Base Excess Barometric Pressure Sodium Potassium Chloride Carbon Dioxide Anion Gap BUN Creatinine Est Cr Clr Drug Dosing Est GFR ( Amer) Est GFR (Non-Af Amer) BUN/Creatinine Ratio Glucose POC Glucose Estimat Average Glucose Hemoglobin A1c Lactate Calcium Magnesium Total Bilirubin AST ALT Alkaline Phosphatase Troponin I High Sens 24.7 H B-Natriuretic Peptide Total Protein Albumin Globulin Albumin/Globulin Ratio SARS-CoV-2, RNA, NAAT 08/04/21 08/04/21 08/04/21 17:20 17:20 17:20 WBC RBC Hgb Hct MCV MCH MCHC RDW Std Deviation RDW Coeff of Jorge A Plt Count MPV Immature Gran % (Auto) Neut % (Auto) Lymph % (Auto) Mayes % (Auto) Eos % (Auto) Baso % (Auto) Neut # (Auto) Lymph # (Auto) Mayes # (Auto) Eos # (Auto) Baso # (Auto) Immature Gran # (Auto) PT INR APTT PTT Ratio VBG pH VBG pCO2 VBG pO2 VBG HCO3 VBG O2 Saturation VBG Base Excess Barometric Pressure Sodium 135 L Potassium Chloride 93 L Carbon Dioxide 31 Anion Gap 11 BUN 55 H Creatinine 9.16 H* Est Cr Clr Drug Dosing 11.0 Est GFR ( Amer) 6.2 Est GFR (Non-Af Amer) 5.4 BUN/Creatinine Ratio 6.0 L Glucose 162 H POC Glucose Estimat Average Glucose Hemoglobin A1c Lactate 0.9 Calcium 9.4 Magnesium 2.4 Total Bilirubin 0.7 AST ALT 10 Alkaline Phosphatase 107 H Troponin I High Sens B-Natriuretic Peptide 1250 H Total Protein 7.9 Albumin 4.2 Globulin 3.7 Albumin/Globulin Ratio 1.1 SARS-CoV-2, RNA, NAAT 08/04/21 08/04/21 08/04/21 17:42 18:25 23:57 WBC RBC Hgb Hct MCV MCH MCHC RDW Std Deviation RDW Coeff of Jorge A Plt Count MPV Immature Gran % (Auto) Neut % (Auto) Lymph % (Auto) Mayes % (Auto) Eos % (Auto) Baso % (Auto) Neut # (Auto) Lymph # (Auto) Mayes # (Auto) Eos # (Auto) Baso # (Auto) Immature Gran # (Auto) PT INR APTT PTT Ratio VBG pH 7.41 VBG pCO2 50 VBG pO2 40 VBG HCO3 31 VBG O2 Saturation 73.6 VBG Base Excess 5.2 Barometric Pressure 730.8 Sodium Potassium 6.7 H* Chloride Carbon Dioxide Anion Gap BUN Creatinine Est Cr Clr Drug Dosing Est GFR ( Amer) Est GFR (Non-Af Amer) BUN/Creatinine Ratio Glucose POC Glucose 134 H Estimat Average Glucose Hemoglobin A1c Lactate Calcium Magnesium Total Bilirubin AST 9 L ALT Alkaline Phosphatase Troponin I High Sens B-Natriuretic Peptide Total Protein Albumin Globulin Albumin/Globulin Ratio SARS-CoV-2, RNA, NAAT 08/04/21 08/05/21 08/05/21 Unknown 06:32 06:32 WBC 9.31 RBC 3.17 L Hgb 10.1 L Hct 32.5 L MCV 102.5 H MCH 31.9 MCHC 31.1 L RDW Std Deviation 55.1 H RDW Coeff of Jorge A 14.7 H Plt Count 213 MPV 10.1 Immature Gran % (Auto) 0.3 Neut % (Auto) 73.8 Lymph % (Auto) 18.3 Mayes % (Auto) 5.2 Eos % (Auto) 2.0 Baso % (Auto) 0.4 Neut # (Auto) 6.87 H Lymph # (Auto) 1.70 Mayes # (Auto) 0.48 Eos # (Auto) 0.19 Baso # (Auto) 0.04 Immature Gran # (Auto) 0.03 H PT 14.2 H INR 1.4 H APTT 33.8 H PTT Ratio 1.2 VBG pH VBG pCO2 VBG pO2 VBG HCO3 VBG O2 Saturation VBG Base Excess Barometric Pressure Sodium Potassium Chloride Carbon Dioxide Anion Gap BUN Creatinine Est Cr Clr Drug Dosing Est GFR ( Amer) Est GFR (Non-Af Amer) BUN/Creatinine Ratio Glucose POC Glucose Estimat Average Glucose Hemoglobin A1c Lactate Calcium Magnesium Total Bilirubin AST ALT Alkaline Phosphatase Troponin I High Sens B-Natriuretic Peptide Total Protein Albumin Globulin Albumin/Globulin Ratio SARS-CoV-2, RNA, NAAT NEGATIVE 08/05/21 08/05/21 08/05/21 06:32 06:32 07:40 WBC RBC Hgb Hct MCV MCH MCHC RDW Std Deviation RDW Coeff of Jorge A Plt Count MPV Immature Gran % (Auto) Neut % (Auto) Lymph % (Auto) Mayes % (Auto) Eos % (Auto) Baso % (Auto) Neut # (Auto) Lymph # (Auto) Mayes # (Auto) Eos # (Auto) Baso # (Auto) Immature Gran # (Auto) PT INR APTT PTT Ratio VBG pH VBG pCO2 VBG pO2 VBG HCO3 VBG O2 Saturation VBG Base Excess Barometric Pressure Sodium 137 Potassium 5.8 H Chloride 98 Carbon Dioxide 30 Anion Gap 9 BUN 41 H Creatinine 7.51 H* D Est Cr Clr Drug Dosing 12.9 Est GFR ( Amer) 7.9 Est GFR (Non-Af Amer) 6.8 BUN/Creatinine Ratio 5.5 L Glucose 135 H POC Glucose 152 H Estimat Average Glucose 140 Hemoglobin A1c 6.5 H Lactate Calcium 9.3 Magnesium 2.3 Total Bilirubin 0.7 AST 9 L ALT 8 Alkaline Phosphatase 78 Troponin I High Sens B-Natriuretic Peptide Total Protein 7.1 Albumin 3.7 Globulin 3.4 Albumin/Globulin Ratio 1.1 SARS-CoV-2, RNA, NAAT PG Care Time/CCT Total # of Minutes Spent Total Time Spent with Patient: Total time spent is greater than 50% in coordination of care (as documented) at patient's floor/unit and/or counseling patient: Coding Level of Care Code 74685 Subseq Hosp Care Lvl 3 Diagnoses ESRD (end stage renal disease) on dialysis N18.6; Z99.2 Anemia in chronic kidney disease N18.6; D63.1; Z99.2 Chronic kidney disease stage: on chronic dialysis Goals of care, counseling/discussion Z71.89 Fluid overload E87.70 Hypervolemia type: unspecified Debilitated R53.81 (1) Anemia in chronic kidney disease Chronic kidney disease stage: on chronic dialysis Qualified Code(s): N18.6 - End stage renal disease; D63.1 - Anemia in chronic kidney disease; Z99.2 - Dependence on renal dialysis (2) Fluid overload Hypervolemia type: unspecified Qualified Code(s): E87.70 - Fluid overload, u nspecified
--- NOTE | 2021-08-05 15:03 | Hospitalist Progress Note ---
Date of Service August 05, 2021 Assessment & Plan (1) ESRD needing dialysis: Plan: ESRD needing dialysis/fluid overload-missed several dialysis sessions due to not feeling well with nausea/vomiting which is now resolved Patient was taken emergently to dialysis under the orders of nephrology Dr. Audi Francis on the day of admission and had dialysis again on 08/05 Continue all usual medications: Amlodipine, aspirin, carvedilol, furosemide, losartan, Renagel, and Lasix Remains with some borderline hyperkalemia today at 5.8 Follow BMP in the morning Patient is considering stopping dialysis-discussions have been had with nephrology (2) Controlled type 2 diabetes mellitus with kidney complication, without long- term current use of insulin: Plan: Placed on Accu-Cheks before meals and at bedtime with NovoLog coverage per scale continue glargine 16 units subcu every morning hemoglobin A1c here 6.5% although this may not be accurate in the setting of dialysis (3) Fluid overload: Plan: Acute pulmonary edema Improved now with dialysis and removal volume Is now weaned to usual 3 L nasal cannula Patient is on Zosyn since admission empirically suspected because of mildly elevated temperature at 37.6 on admission Blood cultures have remained no growth to date-to discontinue antibiotics (4) Hypothyroidism: Plan: Continue levothyroxine 125 mcg every morning TSH normal in 06/2021 (5) Hypertension: Plan: Blood pressures are elevated Continue home amlodipine, carvedilol, losartan, Lasix (6) Anemia in chronic kidney disease: Plan: Hemoglobin mildly low at 10.1 Was given EPO by nephrology today Follow CBC (7) Depression: Plan: Stable Continue home escitalopram, BuSpar (8) Diabetic peripheral neuropathy associated with type 2 diabetes mellitus: Plan: Continue home gabapentin (9) Obstructive sleep apnea: Plan: Continue CPAP (10) On home oxygen therapy: Plan: Continue home 2-3 L nasal cannula continuously Plan: DVT prophylaxis-add heparin SQ Disposition-continued stay on telemetry Admission and Anticipated Discharge Date Admission Date: August 04, 2021 Subjective Patient has no complaints. Denies chest pains or shortness of breath, no abdominal pain or nausea. He is eating and drinking. Telemetry with sinus rhythm, first-degree AV block, rates in the 50s to 60s Review of Systems Review of Systems: All systems reviewed & are unremarkable except as noted in HPI & below Physical Exam Constitutional: WD/WN, vitals as above + obese Eyes: + anicteric sclerae Neck: trachea midline, no thyromegaly Respiratory: normal respiratory effort, lungs clear to auscultation Cardiovascular: RRR, no murmur, no edema Chest (Breasts): Chest: normal inspection of chest Gastrointestinal (Abdomen): normal bowel sounds, soft, nontender, no hepatosplenomegaly Musculoskeletal: Extremities: + extremities abnormal to inspection (Missing distal phalanx on left third and fourth toes), no cyanosis and no clubbing Skin: no rashes, warm and dry Neurologic: moves all extremities and awake; no focal motor deficits Psychiatric: A+Ox3, euthymic affect Lymphatic: no lymphedema Results & Data Results & Data ([facility]) Vital Signs (Past 12 Hours) Vital Signs Temp Pulse Pulse Pulse Resp BP BP 08/05/21 12:53 36.5 C 55 L 21 140/63 08/05/21 12:40 21 08/05/21 12:16 36.9 C 57 L 158/79 H 08/05/21 12:00 66 153/96 H 08/05/21 11:30 53 L 126/66 08/05/21 11:00 53 L 126/66 08/05/21 10:30 56 L 150/67 H 08/05/21 10:05 36.9 C 57 L 08/05/21 08:00 36.8 C 57 L 23 127/63 08/05/21 07:33 72 22 08/05/21 07:32 53 L 08/05/21 04:05 36.8 C 52 L 16 132/71 Pulse Ox 08/05/21 12:53 99 08/05/21 12:40 99 08/05/21 12:16 08/05/21 12:00 08/05/21 11:30 08/05/21 11:00 08/05/21 10:30 08/05/21 10:05 08/05/21 08:00 95 08/05/21 07:33 92 08/05/21 07:32 08/05/21 04:05 100 Laboratory Results 08/05/21 08/05/21 08/05/21 Range/Units 19:22 16:31 15:07 WBC (4.8-10.8) K/uL RBC (4.7-6.1) M/uL Hgb (14.0-18.0) g/dL Hct (42-52) % MCV (80-100) fL MCH (25-34) pg MCHC (32-36) g/dL RDW Std Deviation (36.4-46.3) fL RDW Coeff of Jorge A (11.5-14.5) % Plt Count (130-400) K/uL MPV (7.4-10.4) fL Immature Gran % (Auto) % Neut % (Auto) % Lymph % (Auto) % Nobles % (Auto) % Eos % (Auto) % Baso % (Auto) % Neut # (Auto) (1.4-6.5) K/uL Lymph # (Auto) (1.2-3.4) K/uL Nobles # (Auto) (0.11-0.59) K/uL Eos # (Auto) (0-0.5) K/uL Baso # (Auto) (0-0.2) K/uL Immature Gran # (Auto) (0.00-0.02) K/uL PT (9.0-12.0) Seconds INR (0.9-1.1) APTT (21.0-31.0) Seconds PTT Ratio Sodium (136-145) mmol/L Potassium (3.5-5.1) mmol/L Chloride (98-107) mmol/L Carbon Dioxide (21-32) mmol/L Anion Gap (3-11) BUN (6-23) mg/dl Creatinine (0.6-1.4) mg/dl Est Cr Clr Drug Dosing ml/min Est GFR ( Amer) ml/min Est GFR (Non-Af Amer) ml/min BUN/Creatinine Ratio (10-20) Glucose (70-99(Fasting)) mg/dl POC Glucose 134 H 105 H (70-99) mg/dl Estimat Average Glucose mg/dl Hemoglobin A1c (4.5-5.6) % Calcium (8.5-10.1) mg/dl Magnesium (1.7-2.4) mg/dl Total Bilirubin (0.2-1.0) mg/dl AST (13-39) U/L ALT (7-52) U/L Alkaline Phosphatase (34-104) U/L Total Protein (6.0-8.3) gm/dl Albumin (3.4-5.0) gm/dl Globulin (2.5-4.0) gm/dl Albumin/Globulin Ratio (0.9-2) Hepatitis Be Antibody Pending Hepatitis Be Antigen Pending 08/05/21 08/05/21 08/05/21 Range/Units 07:40 06:32 06:32 WBC (4.8-10.8) K/uL RBC (4.7-6.1) M/uL Hgb (14.0-18.0) g/dL Hct (42-52) % MCV (80-100) fL MCH (25-34) pg MCHC (32-36) g/dL RDW Std Deviation (36.4-46.3) fL RDW Coeff of Jorge A (11.5-14.5) % Plt Count (130-400) K/uL MPV (7.4-10.4) fL Immature Gran % (Auto) % Neut % (Auto) % Lymph % (Auto) % Nobles % (Auto) % Eos % (Auto) % Baso % (Auto) % Neut # (Auto) (1.4-6.5) K/uL Lymph # (Auto) (1.2-3.4) K/uL Nobles # (Auto) (0.11-0.59) K/uL Eos # (Auto) (0-0.5) K/uL Baso # (Auto) (0-0.2) K/uL Immature Gran # (Auto) (0.00-0.02) K/uL PT (9.0-12.0) Seconds INR (0.9-1.1) APTT (21.0-31.0) Seconds PTT Ratio Sodium 137 (136-145) mmol/L Potassium 5.8 H (3.5-5.1) mmol/L Chloride 98 (98-107) mmol/L Carbon Dioxide 30 (21-32) mmol/L Anion Gap 9 (3-11) BUN 41 H (6-23) mg/dl Creatinine 7.51 H* D (0.6-1.4) mg/dl Est Cr Clr Drug Dosing 12.9 ml/min Est GFR ( Amer) 7.9 ml/min Est GFR (Non-Af Amer) 6.8 ml/min BUN/Creatinine Ratio 5.5 L (10-20) Glucose 135 H (70-99(Fasting)) mg/dl POC Glucose 152 H (70-99) mg/dl Estimat Average Glucose 140 mg/dl Hemoglobin A1c 6.5 H (4.5-5.6) % Calcium 9.3 (8.5-10.1) mg/dl Magnesium 2.3 (1.7-2.4) mg/dl Total Bilirubin 0.7 (0.2-1.0) mg/dl AST 9 L (13-39) U/L ALT 8 (7-52) U/L Alkaline Phosphatase 78 (34-104) U/L Total Protein 7.1 (6.0-8.3) gm/dl Albumin 3.7 (3.4-5.0) gm/dl Globulin 3.4 (2.5-4.0) gm/dl Albumin/Globulin Ratio 1.1 (0.9-2) Hepatitis Be Antibody Hepatitis Be Antigen 08/05/21 08/05/21 08/04/21 Range/Units 06:32 06:32 23:57 WBC 9.31 (4.8-10.8) K/uL RBC 3.17 L (4.7-6.1) M/uL Hgb 10.1 L (14.0-18.0) g/dL Hct 32.5 L (42-52) % MCV 102.5 H (80-100) fL MCH 31.9 (25-34) pg MCHC 31.1 L (32-36) g/dL RDW Std Deviation 55.1 H (36.4-46.3) fL RDW Coeff of Jorge A 14.7 H (11.5-14.5) % Plt Count 213 (130-400) K/uL MPV 10.1 (7.4-10.4) fL Immature Gran % (Auto) 0.3 % Neut % (Auto) 73.8 % Lymph % (Auto) 18.3 % Nobles % (Auto) 5.2 % Eos % (Auto) 2.0 % Baso % (Auto) 0.4 % Neut # (Auto) 6.87 H (1.4-6.5) K/uL Lymph # (Auto) 1.70 (1.2-3.4) K/uL Nobles # (Auto) 0.48 (0.11-0.59) K/uL Eos # (Auto) 0.19 (0-0.5) K/uL Baso # (Auto) 0.04 (0-0.2) K/uL Immature Gran # (Auto) 0.03 H (0.00-0.02) K/uL PT 14.2 H (9.0-12.0) Seconds INR 1.4 H (0.9-1.1) APTT 33.8 H (21.0-31.0) Seconds PTT Ratio 1.2 Sodium (136-145) mmol/L Potassium (3.5-5.1) mmol/L Chloride (98-107) mmol/L Carbon Dioxide (21-32) mmol/L Anion Gap (3-11) BUN (6-23) mg/dl Creatinine (0.6-1.4) mg/dl Est Cr Clr Drug Dosing ml/min Est GFR ( Amer) ml/min Est GFR (Non-Af Amer) ml/min BUN/Creatinine Ratio (10-20) Glucose (70-99(Fasting)) mg/dl POC Glucose 134 H (70-99) mg/dl Estimat Average Glucose mg/dl Hemoglobin A1c (4.5-5.6) % Calcium (8.5-10.1) mg/dl Magnesium (1.7-2.4) mg/dl Total Bilirubin (0.2-1.0) mg/dl AST (13-39) U/L ALT (7-52) U/L Alkaline Phosphatase (34-104) U/L Total Protein (6.0-8.3) gm/dl Albumin (3.4-5.0) gm/dl Globulin (2.5-4.0) gm/dl Albumin/Globulin Ratio (0.9-2) Hepatitis Be Antibody Hepatitis Be Antigen PG Care Time/CCT Total # of Minutes Spent Total Time Spent with Patient: Total time spent is greater than 50% in coordination of care (as documented) at patient's floor/unit and/or counseling patient: Coding Level of Care Code 31681 Subseq Hosp Care Lvl 3 Diagnoses ESRD needing dialysis N18.6; Z99.2 Controlled type 2 diabetes mellitus with kidney complication, without long-term current use of insulin E11.29 Fluid overload E87.70 Hypervolemia type: unspecified Hypothyroidism E03.9 Hypothyroidism type: unspecified Hypertension I10 Hypertension type: essential hypertension Anemia in chronic kidney disease N18.6; D63.1; Z99.2 Chronic kidney disease stage: on chronic dialysis Depression F32.9 Depression Type: unspecified Diabetic peripheral neuropathy associated with type 2 diabetes mellitus E11.42 Obstructive sleep apnea G47.33 On home oxygen therapy Z99.81 (1) Hypothyroidism Hypothyroidism type: unspecified Qualified Code(s): E03.9 - Hypothyroidism, unspecified (2) Hypertension Hypertension type: essential hypertension Qualified Code(s): I10 - Essential (primary) hypertension (3) Fluid overload Hypervolemia type: unspecified Qualified Code(s): E87.70 - Fluid overload, unspecified (4) Anemia in chronic kidney disease Chronic kidney disease stage: on chronic dialysis Qualified Code(s): N18.6 - End stage renal disease; D63.1 - Anemia in chronic kidney disease; Z99.2 - Dependence on renal dialysis (5) Depression Depression Type: unspecified Qualified Code(s): F32.9 - Major depressive disorder, single episode, unspecified
[2021-08-05] MEDS ORDERED: PIPERACILLIN/TAZOBACTAM 4.5 GM in DEXTROSE 5% 100 ML IV SCH (20:00)
[2021-08-06] MEDS: LEVOTHYROXINE SODIUM 125 MCG TABLET PO SCH (06:02)
[2021-08-06] MEDS: INSULIN ASPART PER UNIT SC SCH ×3 (07:48→17:05)
[2021-08-06] MEDS: FUROSEMIDE 80 MG TAB PO SCH (07:53)
[2021-08-06] MEDS: carvediloL 12.5 MG TAB PO SCH (07:53)
[2021-08-06] MEDS: SEVELAMER HCL 800 MG TABLET PO SCH ×2 (07:54→11:35)
[2021-08-06] MEDS: INSULIN GLARGINE SOLOSTAR 100 UNITS/ML 3 ML PEN SQ SCH (07:56)
[2021-08-06] MEDS: busPIRone 5 MG TAB PO SCH (08:32)
[2021-08-06] MEDS: LOSARTAN POTASSIUM 50 MG TAB PO SCH (08:33)
[2021-08-06] MEDS: PANTOprazole 40 MG TAB PO SCH (08:33)
[2021-08-06] MEDS: ESCITALOPRAM OXALATE 10 MG TAB PO SCH (08:33)
[2021-08-06 08:48] LABS: Basophils # (auto) 0.03 K/uL (0-0.2); Basophils % (auto) 0.4 %; Eosinophils # (auto) 0.33 K/uL (0-0.5); Eosinophils % (auto) 4.1 %; Hematocrit (blood only) 33.9 % (42-52); Hemoglobin 10.5 g/dL (14.0-18.0); Immature Granulocytes # (auto) 0.03 K/uL (0.00-0.02); Immature Granulocytes % (auto) 0.4 %; Lymphocytes # (auto) 1.69 K/uL (1.2-3.4); Mean Corpuscular Hemoglobin 31.2 pg (25-34); Mean Corpuscular Volume 100.6 fL (80-100); Mean Platelet Volume 10.1 fL (7.4-10.4); Neutrophils # (auto) 5.57 K/uL (1.4-6.5); Neutrophils % (auto) 69.1 %; Platelet Count 217 K/uL (130-400); RDW Coefficient of Variation 14.5 % (11.5-14.5); RDW Standard Deviation 53.7 fL (36.4-46.3); Red Blood Count 3.37 M/uL (4.7-6.1); White Blood Count 8.05 K/uL (4.8-10.8)
[2021-08-06] MEDS ORDERED: HEPARIN SOD 5,000 UNIT/0.5 ML VIAL SQ SCH (09:00)
[2021-08-06 09:12] LABS: Albumin Globulin Ratio 1.1 (0.9-2); Albumin Level 3.7 gm/dl (3.4-5.0); BUN Creatinine Ratio 5.5 (10-20); Bilirubin,Total 0.5 mg/dl (0.2-1.0); Calcium 9.2 mg/dl (8.5-10.1); Est GFR (African American) 7.3 ml/min; Est GFR (Non-African American) 6.3 ml/min; Globulin 3.5 gm/dl (2.5-4.0); Magnesium 2.3 mg/dl (1.7-2.4); Potassium 5.2 mmol/L (3.5-5.1); Total Protein 7.2 gm/dl (6.0-8.3)
--- NOTE | 2021-08-06 10:16 | Electrocardiogram Report ---
Test Reason : Blood Pressure : / mmHG Vent. Rate : 071 BPM Atrial Rate : 071 BPM P-R Int : 316 ms QRS Dur : 096 ms QT Int : 422 ms P-R-T Axes : 040 183 029 degrees QTc Int : 458 ms Sinus rhythm with 1st degree A-V block Low voltage QRS Septal infarct (cited on or before 04-AUG-2021) Possible Lateral infarct (cited on or before 04-AUG-2021) Abnormal ECG When compared with ECG of 23-JUN-2021 16:26, Questionable change in QRS axis Questionable change in initial forces of Anterolateral leads OK interval has prolonged Confirmed by Veto Pisano ([id number]) on 08/06/2021 10:16:26 AM Referred By: REFERRED SELF Confirmed By:Veto Pisano
--- NOTE | 2021-08-06 10:23 | Nephrology Progress Note ---
Date of Service August 06, 2021 Assessment & Plan (1) ESRD (end stage renal disease) on dialysis: Plan: ESRD on HD TTS. Completed urgent HD Tuesday for hyperkalemia and symptomatic volume overload with pulmonary edema - 2 hrs for UF 3 L. Completed an additional 2 hours for clearance and UF yesterday. Arrangements were made for outpatient dialysis at [facility] today but Sebastián is refusing at this time. Discharge plan discussed with Dr. Leone this AM. Medications are appropriately dosed for kidney dysfunction. Renal diet. (2) Anemia in chronic kidney disease: Plan: Epogen 4000 units provided with HD yesterday. (3) Goals of care, counseling/discussion: Plan: Reviewed importance of adequate dialysis this AM. Sebastián expressed understanding. He does plan to continue dialysis treatments. (4) Fluid overload: Plan: Improved with HD. Sebastián is currently 2 kg below outpatient EDW. (5) Debilitated: Admission and Anticipated Discharge Date Admission Date: August 04, 2021 Subjective No acute events overnight. Sebastián feels well this AM. He states that he is ready for discharge. Outpatient HD treatment at [facility] offered but he is refusing. I encouraged him to strongly consider and risks/benefits were discussed. He completed HD yesterday without complications. Review of Systems Review of Systems: All systems reviewed & are unremarkable except as noted in HPI & below Physical Exam Constitutional: well developed and + morbidly obese; no acute distress Eyes: no scleral abnormality and no corneal abnormality Neck: normal visual inspection and trachea midline Respiratory: normal respiratory effort Auscultation: + rales Cardiovascular: Rate/Rhythm: regular rate Heart Sounds: normal S1 and normal S2 Extremities: + edema (predominately in abdomen with trace to 1+ BL LE) and + AV fistula Musculoskeletal: Extremities: no cyanosis and no clubbing Skin: normal turgor; no lesions Neurologic: Motor/Sensory: no tremor and no asterixis Psychiatric: Orientation: alert and oriented x 3 Results & Data ([facility]) Vital Signs (Past 12 Hours) Vital Signs Temp Pulse Pulse Pulse Resp BP Pulse Ox 08/06/21 08:17 36.6 C 52 L 18 155/66 H 99 08/06/21 08:00 22 97 08/06/21 07:37 51 L 08/06/21 04:00 37.1 C 50 L 22 138/58 L 99 08/06/21 03:14 48 L 27 H 98 08/06/21 00:33 50 L 08/06/21 00:00 20 08/05/21 22:33 52 L 19 100 08/05/21 22:21 37 C 51 L 18 150/76 H 98 Laboratory Results Laboratory Results - last 24 hr 08/05/21 08/05/21 08/05/21 15:07 16:31 19:22 WBC RBC Hgb Hct MCV MCH MCHC RDW Std Deviation RDW Coeff of Jorge A Plt Count MPV Immature Gran % (Auto) Neut % (Auto) Lymph % (Auto) [place] % (Auto) Eos % (Auto) Baso % (Auto) Neut # (Auto) Lymph # (Auto) [place] # (Auto) Eos # (Auto) Baso # (Auto) Immature Gran # (Auto) Sodium Potassium Chloride Carbon Dioxide Anion Gap BUN Creatinine Est Cr Clr Drug Dosing Est GFR ( Amer) Est GFR (Non-Af Amer) BUN/Creatinine Ratio Glucose POC Glucose 105 H 134 H Calcium Magnesium Total Bilirubin AST ALT Alkaline Phosphatase Total Protein Albumin Globulin Albumin/Globulin Ratio Hepatitis Be Antibody Pending Hepatitis Be Antigen Pending 08/06/21 08/06/21 08/06/21 07:05 08:15 08:15 WBC 8.05 RBC 3.37 L Hgb 10.5 L Hct 33.9 L MCV 100.6 H MCH 31.2 MCHC 31.0 L RDW Std Deviation 53.7 H RDW Coeff of Jorge A 14.5 Plt Count 217 MPV 10.1 Immature Gran % (Auto) 0.4 Neut % (Auto) 69.1 Lymph % (Auto) 21.0 [place] % (Auto) 5.0 Eos % (Auto) 4.1 Baso % (Auto) 0.4 Neut # (Auto) 5.57 Lymph # (Auto) 1.69 [place] # (Auto) 0.40 Eos # (Auto) 0.33 Baso # (Auto) 0.03 Immature Gran # (Auto) 0.03 H Sodium 136 Potassium 5.2 H Chloride 97 L Carbon Dioxide 28 Anion Gap 11 BUN 44 H Creatinine 8.01 H* D Est Cr Clr Drug Dosing 12.0 Est GFR ( Amer) 7.3 Est GFR (Non-Af Amer) 6.3 BUN/Creatinine Ratio 5.5 L Glucose 137 H POC Glucose 127 H Calcium 9.2 Magnesium 2.3 Total Bilirubin 0.5 AST 10 L ALT 8 Alkaline Phosphatase 69 Total Protein 7.2 Albumin 3.7 Globulin 3.5 Albumin/Globulin Ratio 1.1 Hepatitis Be Antibody Hepatitis Be Antigen PG Care Time/CCT Total # of Minutes Spent Total Time Spent with Patient: Total time spent is greater than 50% in coordination of care (as documented) at patient's floor/unit and/or counseling patient: Coding Level of Care Code 79526 Subseq Hosp Care Lvl 3 Diagnoses ESRD (end stage renal disease) on dialysis N18.6; Z99.2 Anemia in chronic kidney disease N18.6; D63.1; Z99.2 Chronic kidney disease stage: on chronic dialysis Goals of care, counseling/discussion Z71.89 Fluid overload E87.70 Hypervolemia type: unspecified Debilitated R53.81 (1) Anemia in chronic kidney disease Chronic kidney disease stage: on chronic dialysis Qualified Code(s): N18.6 - End stage renal disease; D63.1 - Anemia in chronic kidney disease; Z99.2 - Dependence on renal dialysis (2) Fluid overload Hypervolemia type: unspecified Qualified Code(s): E87.70 - Fluid overload, unspecified
[2021-08-06] MEDS ORDERED: PATIROMER CALCIUM SORBITEX 8.4 GM PACK PO ONE (10:53)
--- NOTE | 2021-08-06 11:05 | Discharge Summary ---
Date of Service August 06, 2021 Admission HPI Per Admitting Provider The patient is a 66-year-old male with a past medical history including ESRD on HD, diabetes mellitus, peripheral neuropathy, hypothyroidism, hypertension, Molina's thyroiditis, fluid overload, GERD, SNHL bilaterally, pulmonary edema diabetic ulcers of feet, JANET and anemia chronic disease. He presents with symptoms as noted above. Patient typically receives at dialysis on Tuesday, and Tuesday, and was due for dialysis 3 days ago, Tuesday, but did not go due to not feeling well. The patient is being mid to the hospital for emergent dialysis Principal Diagnosis Need for urgent dialysis, acute pulmonary edema, acute on chronic respiratory failure with hypoxia Discharge Exam Constitutional WD/WN, vitals as above + obese Eyes + anicteric sclerae Neck trachea midline, no thyromegaly Respiratory normal respiratory effort, lungs clear to auscultation Cardiovascular RRR, no murmur, no edema Chest (Breasts) Chest: normal inspection of chest Gastrointestinal (Abdomen) normal bowel sounds, soft, nontender, no hepatosplenomegaly Musculoskeletal Extremities: + extremities abnormal to inspection (Missing distal phalanx on left third and fourth toes), no cyanosis and no clubbing Skin no rashes, warm and dry Neurologic moves all extremities and awake; no focal motor deficits Psychiatric A+Ox3, euthymic affect Lymphatic no lymphedema Discharge Data Allergies Allergy/AdvReac Type Severity Reaction Status Date / Time lactose AdvReac Intermediate Gastrointestinal Verified 08/04/21 21:30 Upset Consultations 08/04/21 18:27 ED Decision to Admit Stat 08/04/21 21:25 Consult Nephrology Routine Hospital Course (1) ESRD needing dialysis: ESRD needing dialysis/fluid overload-missed several dialysis sessions due to not feeling well with nausea/vomiting which is now resolved Patient was taken emergently to dialysis under the orders of nephrology Dr. Audi Francis on the day of admission and had dialysis again on 08/05 Continue all usual medications: Amlodipine, aspirin, carvedilol, furosemide, losartan, Renagel, and Lasix Remains with some borderline hyperkalemia today at 5.2--> gave Veltassa 16.8 gm po x 1 on day of discharge Pt was offered discharge early AM of to make an 1100 HD session as an outpatient, but he declined-said he wasn't having HD today. Discharge to home and he will resume outpt HD on Tuesday Patient is considering stopping dialysis-discussions have been had with nephrology (2) Controlled type 2 diabetes mellitus with kidney complication, without long- term current use of insulin: Placed on Accu-Cheks before meals and at bedtime with NovoLog coverage per scale continue glargine 16 units subcu every morning hemoglobin A1c here 6.5% although this may not be accurate in the setting of dialysis (3) Fluid overload: Acute pulmonary edema Improved now with dialysis and removal volume Is now weaned to usual 3 L nasal cannula which is his baseline Patient is on Zosyn since admission empirically suspected because of mildly elevated temperature at 37.6 on admission No further fevers Blood cultures have remained no growth to date- discontinued antibiotics (4) Hypothyroidism: Continue levothyroxine 125 mcg every morning TSH normal in 06/2021 (5) Hypertension: Blood pressures are elevated Continue home amlodipine, carvedilol, losartan, Lasix (6) Anemia in chronic kidney disease: Hemoglobin mildly low at 10.1 Was given EPO by nephrology here Follow CBC as outpt (7) Depression: Stable Continue home escitalopram, BuSpar (8) Diabetic peripheral neuropathy associated with type 2 diabetes mellitus: Continue home gabapentin (9) Obstructive sleep apnea: Continue CPAP (10) On home oxygen therapy: Continue home 2-3 L nasal cannula continuously DVT prophylaxis-add heparin SQ Disposition-dc to home with home health, CM to arrange transport Total Time Total Time Spent Total Time Spent (In Minutes): 35 min Total Time Includes: Examination of the Patient, Discharge Planning, Medication Reconciliation and Communication With Other Providers (Nephrology) Discharge Plan Discharge Items Patient Disposition: Home - Home Health Services Reason For Visit: ESRD NEEDING HD Discharge Diagnosis: Need for urgent dialysis Hyperkalemia Condition on Discharge: Fair Activity: Resume your previous activity Non-emergency contact: Primary Care Provider and [employer] Visual Designer Call non-emergency contact if: you have any medication questions and your symptoms worsen Follow-up/Referrals: Veto Gan DO [Primary Care Provider] - (Follow up within 1-2 weeks.) Diet: Carb Consistent or DM2, Dialysis Renal and Low Potassium (2gm) Addtl Attending Provider Instructions: You were admitted to receive urgent dialysis after missing dialysis. You had improvement in your condition and are now being discharged home. Please keep your usual dialysis schedule starting on Tuesday. Pending Studies at Discharge: Yes (Final blood culture results-no growth to date) Stand-Alone Forms: My [facility] [employer], Smoking Cessation Medications and DC Order Prescriptions: Continued (DME) HYDRAULIC KHADAR LIFT See Rx Instructions .Route .MEDSUPPLY Qty: 1 RF: 0 (DME) FreeStyle Virgil 14 Day Sensor Kit See Dose Instructions .ROUTE .MEDSUPPLY Qty: 6 RF: 3 (DME) FreeStyle Virgil 14 Day [place] Misc See Rx Instructions .ROUTE .MEDSUPPLY Qty: 1 RF: 5 furosemide [Lasix] 80 mg tablet 80 mg PO BID Qty: 180 RF: 3 fluticasone propionate 50 mcg/actuation spray,suspension 2 spray intranasal DAILY Qty: 16 RF: 5 aspirin 81 mg tablet,chewable 81 mg PO HS Qty: 90 RF: 3 amlodipine 10 mg tablet 10 mg PO HS Qty: 90 RF: 3 levothyroxine 125 mcg tablet 125 mcg PO QAM Qty: 90 RF: 3 losartan 50 mg tablet 50 mg PO QAM Qty: 90 RF: 3 gabapentin 100 mg capsule 300 mg PO HS Qty: 270 RF: 3 nitroglycerin 0.4 mg tablet, sublingual 0.4 mg sublingual DIRECTED PRN (Reason: Chest Pain) RF: 0 loperamide [Imodium A-D] 2 mg capsule 2 mg PO DIRECTED PRN (Reason: loose stool) RF: 0 simvastatin 20 mg tablet 20 mg PO HS RF: 0 carvedilol 12.5 mg tablet 12.5 mg PO BID RF: 0 omeprazole 20 mg capsule,delayed release(DR/EC) 20 mg PO QAM RF: 0 Lantus Solostar U-100 Insulin 100 unit/mL (3 mL) insulin pen 16 unit SUBCUT QAM RF: 0 nystatin 100,000 unit/gram powder 1 applic topical BID PRN (Reason: irritation) RF: 0 sevelamer carbonate 800 mg tablet 2,400 mg PO TIDM RF: 0 buspirone 10 mg tablet 5 mg PO BID RF: 0 escitalopram oxalate 10 mg tablet 10 mg PO QAM RF: 0 Discharge Orders: Discharge Order (Routine); Ordered 08/06/21 Ordered By: Ann Barriga/Other Patient Handouts: Managing Type 2 Diabetes Admission Data Admit Date/Time: 08/04/21 19:42 Attending Provider: Ann Leone Admit Provider: Que Marks Primary Care Provider: Veto Gan Other Providers: Que Marks ; Audi Francis ; [facility] Coding Level of Care Code D/C DAY MANAGEMENT >30 MINS Diagnoses ESRD needing dialysis N18.6; Z99.2 Controlled type 2 diabetes mellitus with kidney complication, without long-term current use of insulin E11.29 Fluid overload E87.70 Hypervolemia type: unspecified Hypothyroidism E03.9 Hypothyroidism type: unspecified Hypertension I10 Hypertension type: essential hypertension Anemia in chronic kidney disease N18.6; D63.1; Z99.2 Chronic kidney disease stage: on chronic dialysis Depression F32.9 Depression Type: unspecified Diabetic peripheral neuropathy associated with type 2 diabetes mellitus E11.42 Obstructive sleep apnea G47.33 On home oxygen therapy Z99.81
[2021-08-10 06:45] LABS: Hepatitis BE Antibody Nonreactive; Hepatitis BE Antigen Nonreactive
== END 2021-08-06 18:24 | disposition home health service (06) | DRG 189 ==
LOC: ED 16:26 → 2S 19:42 → SUATTDRO 19:42 → 2S 21:01
DX: J96.21 Acute and chronic respiratory failure with hypoxia; E11.51 Type 2 diabetes mellitus with diabetic peripheral angiopathy without gangrene; E11.22 Type 2 diabetes mellitus with diabetic chronic kidney disease; N18.6 End stage renal disease; I12.0 Hypertensive chronic kidney disease with stage 5 chronic kidney disease or end stage renal disease; E66.9 Obesity, unspecified; E11.40 Type 2 diabetes mellitus with diabetic neuropathy, unspecified; F17.210 Nicotine dependence, cigarettes, uncomplicated; I44.0 Atrioventricular block, first degree; D63.1 Anemia in chronic kidney disease; Z83.3 Family history of diabetes mellitus; Z68.41 Body mass index [BMI] 40.0-44.9, adult; G47.33 Obstructive sleep apnea (adult) (pediatric); Z99.2 Dependence on renal dialysis; F32.A Depression, unspecified; Z79.4 Long term (current) use of insulin; J81.1 Chronic pulmonary edema; Z99.81 Dependence on supplemental oxygen; J81.0 Acute pulmonary edema; Z74.01 Bed confinement status; E03.9 Hypothyroidism, unspecified

== ENCOUNTER 2021-12-21 15:38 | Inpatient (IN) ==
--- NOTE | 2021-12-21 16:10 | Emergency Department Note ---
Impression & Plan Respiratory failure, Hyperkalemia, ESRD (end stage renal disease) on dialysis, Pulmonary edema, Acute renal failure ED Provider Note NAME: KANG ORTIZ AGE: 66 SEX: M : 1955 ARRIVES VIA: Ambulance INFORMANT: Patient, ED PROVIDER(S): Alberto Cho DO CHIEF COMPLAINT: Shortness of breath HPI: The patient is a 66-year-old male who presented to the emergency department by ambulance for an evaluation of shortness of breath. The patient has a history of renal disease and has dialysis. He normally goes Tuesday. The patient presented to the emergency department today admittedly missed dialysis on Tuesday. He denies having any nausea or vomiting. He does complain of cough with chest pain. He states that he has continued to smokes. He denies having any changes to his medications. The patient has been compliant with his outpatient medications. His caregiver saw him in severe distress and called 911. The patient was found to be in respiratory distress and was placed immediately on BiPAP. He states his symptoms have significantly improved at this time. He denies having any fever. He denies having any hemoptysis. He states his symptoms are worsened with any exertion. ROS: See above HPI for pertinent positives & negatives. A total of 10 systems reviewed and were otherwise negative. PAST MEDICAL HISTORY: See Below PAST SURGICAL HISTORY: See Below FAMILY HISTORY: See Below SOCIAL HISTORY: See Below HOME MEDICATIONS: See Below AL the patient is a 66-year-old male who presented to the emergency department for an evaluation of difficulty breathing. LERGIWES: See Below VITALS: See Below PHYSICAL EXAMINATION: GENERAL: The patient is awake and alert. The patient is very anxious. EYES: The conjunctivae are clear. The pupils are round and reactive. EARS, NOSE, MOUTH AND THROAT: The nose is without any evidence of any deformity. NECK: The neck is nontender and supple. RESPIRATORY: Absent breath sounds were noted in the right lung field. There were rales noted throughout the left lung field. Significant conversational dyspnea was appreciated. CARDIOVASCULAR: Regular rate and rhythm noted there no murmurs rubs or gallops normal S1 normal S2. GASTROINTESTINAL: The abdomen is soft. Abdomen is nontender. MUSCULOSKELETAL/EXTREMITIES: There is no evidence of gross deformity full range of motion is noted in the hips and shoulders. SKIN: Pedal edema was noted bilaterally. Skin was warm and dry. There is an ulceration to the right anterior leg. There is a dialysis fistula in the left upper extremity. There was a palpable thrill and bruit noted to auscultation. NEUROLOGIC: Patient is awake alert and oriented x3 MEDICAL DECISION MAKING: Patient is a 66-year-old male who presented to the emergency department for an evaluation of difficulty breathing. The patient has a history of end-stage renal disease and missed his last dialysis treatment. His history and physical exam appear to be consistent with pulmonary edema. The patient was placed on BiPAP with good results. I discussed the patient's condition with the on-call ballpoint pen cartridge tester. They were able to arrange the patient for emergency dialysis. The patient was taken directly to emergency dialysis. He had an elevated potassium but his EKG showed no acute changes consistent with hyperkalemia. Further treatment was deferred until the patient could receive dialysis. I discussed the patient's condition with the on-call [facility] hospitalist as well. They have agreed to evaluate the patient in the emergency department for further management and disposition. Triage Nursing notes reviewed. Prior medical records reviewed Vital Signs: reviewed and remarkable for elevated blood pressure. Differential diagnosis: Reactive airway disease, pneumonia, pneumothorax, COPD, CHF, infections, cardiac ischemia, pulmonary embolism, musculoskeletal, gastrointestinal, as well as other pathologies. ER treatment provided: See below Diagnostics interpreted by me: ECG: EKG was obtained in the emergency department. My interpretation is sinus rhythm at 69 bpm. There is a first-degree AV block. Poor R wave progression was noted. Nonspecific ST segment depressions were noted. This was compared to a tracing from August 04, 2021. No changes were noted. Cardiac Monitoring: An order was placed for continuous cardiac monitoring. The monitor shows a rate of 73 bpm with sinus rhythm. Laboratory studies: As stated above and show below. Imaging studies: See below Consultation(s): I discussed this case with Dr. Anaya ED COURSE: Procedures: none Critical Care: I have personally spent greater than 40 minutes of critical care time in the direct management of this patient. This includes bedside care, interpretation of diagnostic studies, and testing, discussion with consultants, patient, and family members, and other required patient management activities. This 40 minutes is in excess of all separately billable procedures. Past Med/Surg History Medical History (Updated 12/21/21 @ 22:48 by Alberto Cho DO) Anemia in chronic kidney disease Anxiety Bedbound Depression DM type 2 (diabetes mellitus, type 2) Dyslipidemia Dysphagia ESRD (end stage renal disease) on dialysis started in 2019 - [facility] [place]. (per sister, ballpoint pen cartridge tester recommends 5xwk but pt refuses) Fistula LUE GERD (gastroesophageal reflux disease) Hypothyroidism Limb alert care status LUE Missed dialysis Morbid obesity with BMI of 40.0-44.9, adult Multiple system atrophy Osteoarthritis Personal history of diabetic foot ulcer Secondary hyperparathyroidism of renal origin Tremor Unable to ambulate miguel lift Volume overload Surgical History Amputation of one or more toes - Left Foot 2nd and 3rd Toe Amputation - Demetrius Vela MD, [facility] History of bilateral cataract extraction History of cardiac cath 01/2018 "about 2-3 weeks"; no stents placed @ [facility] by Dr. Coronel History of carpal tunnel release R wrist History of colonoscopy History of esophagogastroduodenoscopy (EGD) History of repair of anterior cruciate ligament of left knee History of repair of anterior cruciate ligament of right knee History of tonsillectomy History of tooth extraction wisdom teeth Family History Mother Family history of diabetes mellitus Grandmother Family history of diabetes mellitus maternal Other Colorectal cancer Inflammatory bowel disease Melanoma Social History Smoking Status: Current every day smoker Tobacco Type: Cigarettes Age Started Using Tobacco: 15; Cigarettes Per Day: 1 ppd; Second Hand Exposure: No; Do You Dip or Chew Tobacco: No; Tobacco Cessation Education Requested by Patient: No Hx Alcohol Use: No Hx Substance Use: No Preferred Language: Djiboutian Communication Ability: Effective Hydraulic Engineer Required: No Beliefs That Will Affect Care: None marital status: Single Current Living Situation: Family Current Living Situation Comment: pt lives with son current occupational status: retired How many Children do You have: 2 Other Information That Helps Us Care for You: No Feels Safe at Home: Yes Safety Concerns: Feels Safe At This Time Seatbelt Use: other (PT. in wheelchair.) Assistive Devices: CPAP and Oxygen - Continuous Allergies Allergies Allergy/AdvReac Type Severity Reaction Status Date / Time lactose AdvReac Intermediate Gastrointestinal Verified 12/21/21 16:37 Upset Home Meds Home Medications Medication Instructions Recorded Confirmed nitroglycerin 0.4 mg sublingual 0.4 mg sublingual DIRECTED PRN 07/11/20 12/21/21 tablet Chest Pain sevelamer carbonate 800 mg tablet 2,400 mg PO TIDM 04/04/21 12/21/21 simvastatin 20 mg tablet 20 mg PO HS 05/12/21 12/21/21 aspirin 81 mg tablet,delayed 81 mg PO DAILY 12/21/21 12/21/21 release buspirone 15 mg tablet 15 mg PO AMHS 12/21/21 12/21/21 escitalopram oxalate 20 mg tablet 20 mg PO QAM 12/21/21 12/21/21 Previous Rx's Medication Instructions Recorded HYDRAULIC MIGUEL LIFT #1 ea 01/26/21 FreeStyle Virgil 14 Day [place] #1 ea 03/08/21 (flash glucose scanning reader) furosemide 80 mg tablet (Lasix) 80 mg PO BID #180 tabs 06/08/21 amlodipine 10 mg tablet 10 mg PO HS #90 tabs 07/02/21 levothyroxine 125 mcg tablet 125 mcg PO QAM #90 tabs 07/02/21 losartan 50 mg tablet 50 mg PO QAM #90 tabs 07/02/21 gabapentin 100 mg capsule 300 mg PO HS Pain #270 caps 07/07/21 FreeStyle Virgil 14 Day Sensor #6 ea 08/10/21 (flash glucose sensor) insulin detemir U-100 100 unit/mL 15 unit (0.15 mL) subcut DAILY 90 09/30/21 (3 mL) subcutaneous pen (Levemir days #15 mL FlexTouch U-100 Insulin) omeprazole 20 mg capsule,delayed 20 mg PO QAM #180 caps 09/30/21 release pen needle, diabetic 32 gauge x #100 ea 10/02/2104/07" (BD Ultra-Fine Micro Pen Needle) carvedilol 12.5 mg tablet 12.5 mg PO BID #180 tabs 10/22/21 Results & Data (ED) Vital Signs Vital Signs - 24 hr 12/21/21 15:44 12/21/21 15:44 12/21/21 15:44 Temperature 36.8 C Temperature Source Oral Pulse Rate 69 Pulse Rate [Apical] Pulse Rate from SpO2 Sensor Respiratory Rate 22 Respiratory Effort / Characteristics Spontaneous Labored Spontaneous Labored Respiratory Depth Respiratory Pattern Blood Pressure 129/76 Blood Pressure [Right Arm] Blood Pressure Mean 93 Blood Pressure Mean [Right Arm] Pulse Oximetry 96 96 Oxygen Delivery Method BiPAP BiPAP Fraction of Inspired Oxygen 30 30 SaO2/FiO2 Ratio 320 Sepsis Recent Fever Within 48 Hours No Sepsis New/Unexplained Change in Mental Status No Sepsis Action Taken by Nursing No Action Required 12/21/21 15:44 12/21/21 16:01 12/21/21 15:40 Temperature Temperature Source Pulse Rate 69 129 H Pulse Rate [Apical] 69 Pulse Rate from SpO2 Sensor Respiratory Rate 22 24 24 Respiratory Effort / Characteristics Spontaneous Labored Spontaneous Respiratory Depth Normal Normal Respiratory Pattern Regular Blood Pressure Blood Pressure [Right Arm] 129/76 Blood Pressure Mean Blood Pressure Mean [Right Arm] 93 Pulse Oximetry 96 96 100 Oxygen Delivery Method BiPAP BiPAP Fraction of Inspired Oxygen 30 30 SaO2/FiO2 Ratio 320 Sepsis Recent Fever Within 48 Hours Sepsis New/Unexplained Change in Mental Status Sepsis Action Taken by Nursing 12/21/21 15:42 12/21/21 15:45 12/21/21 15:54 Temperature Temperature Source Pulse Rate Pulse Rate [Apical] Pulse Rate from SpO2 Sensor 69 69 Respiratory Rate 24 23 18 Respiratory Effort / Characteristics Respiratory Depth Respiratory Pattern Blood Pressure Blood Pressure [Right Arm] Blood Pressure Mean Blood Pressure Mean [Right Arm] Pulse Oximetry 100 96 Oxygen Delivery Method BiPAP BiPAP Fraction of Inspired Oxygen SaO2/FiO2 Ratio Sepsis Recent Fever Within 48 Hours Sepsis New/Unexplained Change in Mental Status Sepsis Action Taken by Nursing 12/21/21 15:54 12/21/21 16:00 12/21/21 16:02 Temperature Temperature Source Pulse Rate Pulse Rate [Apical] Pulse Rate from SpO2 Sensor 69 70 Respiratory Rate 23 24 Respiratory Effort / Characteristics Respiratory Depth Respiratory Pattern Blood Pressure 129/76 Blood Pressure [Right Arm] Blood Pressure Mean 93 Blood Pressure Mean [Right Arm] Pulse Oximetry 93 93 Oxygen Delivery Method BiPAP BiPAP Fraction of Inspired Oxygen SaO2/FiO2 Ratio Sepsis Recent Fever Within 48 Hours Sepsis New/Unexplained Change in Mental Status Sepsis Action Taken by Nursing 12/21/21 16:02 12/21/21 16:10 12/21/21 16:10 Temperature Temperature Source Pulse Rate Pulse Rate [Apical] Pulse Rate from SpO2 Sensor 69 Respiratory Rate 21 Respiratory Effort / Characteristics Respiratory Depth Respiratory Pattern Blood Pressure 82/47 L 138/58 L Blood Pressure [Right Arm] Blood Pressure Mean 58 84 Blood Pressure Mean [Right Arm] Pulse Oximetry 94 Oxygen Delivery Method BiPAP Fraction of Inspired Oxygen SaO2/FiO2 Ratio Sepsis Recent Fever Within 48 Hours Sepsis New/Unexplained Change in Mental Status Sepsis Action Taken by Nursing 12/21/21 16:34 12/21/21 16:15 12/21/21 16:30 Temperature Temperature Source Pulse Rate 66 Pulse Rate [Apical] Pulse Rate from SpO2 Sensor 68 68 Respiratory Rate 24 22 24 Respiratory Effort / Characteristics Respiratory Depth Respiratory Pattern Blood Pressure 146/73 H Blood Pressure [Right Arm] Blood Pressure Mean 97 Blood Pressure Mean [Right Arm] Pulse Oximetry 96 95 92 Oxygen Delivery Method BiPAP BiPAP BiPAP Fraction of Inspired Oxygen 30 SaO2/FiO2 Ratio Sepsis Recent Fever Within 48 Hours Sepsis New/Unexplained Change in Mental Status Sepsis Action Taken by Nursing 12/21/21 16:31 12/21/21 16:31 12/21/21 16:45 Temperature Temperature Source Pulse Rate 71 Pulse Rate [Apical] Pulse Rate from SpO2 Sensor 67 67 Respiratory Rate 23 23 Respiratory Effort / Characteristics Respiratory Depth Respiratory Pattern Blood Pressure 146/73 H Blood Pressure [Right Arm] Blood Pressure Mean 97 Blood Pressure Mean [Right Arm] Pulse Oximetry 92 93 Oxygen Delivery Method BiPAP BiPAP Fraction of Inspired Oxygen SaO2/FiO2 Ratio Sepsis Recent Fever Within 48 Hours Sepsis New/Unexplained Change in Mental Status Sepsis Action Taken by Nursing 12/21/21 17:00 12/21/21 17:01 12/21/21 17:01 Temperature Temperature Source Pulse Rate 65 67 Pulse Rate [Apical] Pulse Rate from SpO2 Sensor 67 68 Respiratory Rate 22 22 Respiratory Effort / Characteristics Respiratory Depth Respiratory Pattern Blood Pressure 90/62 L Blood Pressure [Right Arm] Blood Pressure Mean 71 Blood Pressure Mean [Right Arm] Pulse Oximetry 95 95 Oxygen Delivery Method BiPAP BiPAP Fraction of Inspired Oxygen SaO2/FiO2 Ratio Sepsis Recent Fever Within 48 Hours Sepsis New/Unexplained Change in Mental Status Sepsis Action Taken by Nursing 12/21/21 17:04 12/21/21 17:04 12/21/21 17:15 Temperature Temperature Source Pulse Rate 66 Pulse Rate [Apical] Pulse Rate from SpO2 Sensor 66 66 Respiratory Rate 24 16 Respiratory Effort / Characteristics Respiratory Depth Respiratory Pattern Blood Pressure 149/60 H Blood Pressure [Right Arm] Blood Pressure Mean 89 Blood Pressure Mean [Right Arm] Pulse Oximetry 97 93 Oxygen Delivery Method BiPAP BiPAP Fraction of Inspired Oxygen SaO2/FiO2 Ratio Sepsis Recent Fever Within 48 Hours Sepsis New/Unexplained Change in Mental Status Sepsis Action Taken by Nursing 12/21/21 17:10 Temperature Temperature Source Pulse Rate 99 H Pulse Rate [Apical] Pulse Rate from SpO2 Sensor Respiratory Rate 23 Respiratory Effort / Characteristics Non-Labored Spontaneous Respiratory Depth Normal Respiratory Pattern Regular Blood Pressure Blood Pressure [Right Arm] Blood Pressure Mean Blood Pressure Mean [Right Arm] Pulse Oximetry 95 Oxygen Delivery Method Fraction of Inspired Oxygen 30 SaO2/FiO2 Ratio Sepsis Recent Fever Within 48 Hours Sepsis New/Unexplained Change in Mental Status Sepsis Action Taken by Jail Medications Current Medication List: was personally reviewed by me Laboratory Data Attestation: I reviewed the patient's lab results. Result diagrams: 12/22/21 04:17 12/22/21 04:17 Lab Results 12/21/21 12/21/21 12/21/21 Range/Units 15:53 15:55 15:55 WBC 13.50 H (4.8-10.8) K/ul RBC 3.15 L (4.63-6.08) M/uL Hgb 10.4 L (14.0-18.0) g/dl POC Hgb (14.0-18.0) g/dl Hct 31.6 L (40.1-51.0) % POC Hct (42-52) % MCV 100.3 H (80.0-100.0) fL MCH 33.0 (25.0-34.0) pg MCHC 32.9 (32.0-36.0) g/dL RDW Std Deviation 46.1 (36.4-46.3) fL RDW Coeff of Jorge A 12.7 (11.5-14.5) % Plt Count 209 (130-400) K/uL MPV 10.6 (9.4-12.4) fL Immature Gran % (Auto) 0.5 % Neut % (Auto) 81.3 % Lymph % (Auto) 11.0 % [place] % (Auto) 5.9 % Eos % (Auto) 0.7 % Baso % (Auto) 0.6 % Neut # (Auto) 10.98 H (1.4-6.5) K/uL Lymph # (Auto) 1.49 (1.2-3.4) K/uL [place] # (Auto) 0.79 (0.24-0.82) K/uL Eos # (Auto) 0.09 (0-0.50) K/uL Baso # (Auto) 0.08 (0-0.2) K/uL Immature Gran # (Auto) 0.07 H (0.00-0.02) K/uL PT 13.9 H (9.0-12.0) Seconds INR 1.3 H (0.9-1.1) APTT 26.9 (21.0-31.0) Seconds PTT Ratio 1.0 VBG pH (7.36-7.41) VBG pCO2 (38-50) mmHg VBG pO2 mmHg VBG HCO3 mmol/L VBG O2 Saturation % VBG Base Excess mEq/L POC Sodium (135-144) mmol/L Sodium (136-145) mmol/L POC Potassium (3.3-5.0) mmol/L Potassium (3.5-5.1) mmol/L POC Chloride (101-112) mmol/L Chloride (98-107) mmol/L Carbon Dioxide (21-32) mmol/L POC Total CO2 (24-31) mmol/L Anion Gap (3-11) POC Anion Gap (16-25) mmol/L POC BUN (7-18) mg/dl BUN (6-23) mg/dl Creatinine (0.6-1.4) mg/dl POC Creatinine (0.6-1.3) mg/dl Est Cr Clr Drug Dosing ml/min Est GFR ( Amer) ml/min Est GFR (Non-Af Amer) ml/min BUN/Creatinine Ratio (10-20) Glucose (70-99(Fasting)) mg/dl POC Glucose (other) (70-99) mg/dl Lactate (0.4-2.0) mmol/L Calcium (8.5-10.1) mg/dl POC Ioniz Calcium Alessandro (1.12-1.32) mmol/l Magnesium (1.7-2.4) mg/dl Total Bilirubin (0.2-1.0) mg/dl AST (13-39) U/L ALT (7-52) U/L Alkaline Phosphatase (34-104) U/L Troponin I High Sens (0-20) pg/ml Total Protein (6.0-8.3) gm/dl Albumin (3.4-5.0) gm/dl Globulin (2.5-4.0) gm/dl Albumin/Globulin Ratio (0.9-2) Procalcitonin (0-0.5) ng/ml SARS-CoV-2, RNA, NAAT NEGATIVE (NEGATIVE) 12/21/21 12/21/21 12/21/21 Range/Units 15:55 15:55 15:55 WBC (4.8-10.8) K/ul RBC (4.63-6.08) M/uL Hgb (14.0-18.0) g/dl POC Hgb (14.0-18.0) g/dl Hct (40.1-51.0) % POC Hct (42-52) % MCV (80.0-100.0) fL MCH (25.0-34.0) pg MCHC (32.0-36.0) g/dL RDW Std Deviation (36.4-46.3) fL RDW Coeff of Jorge A (11.5-14.5) % Plt Count (130-400) K/uL MPV (9.4-12.4) fL Immature Gran % (Auto) % Neut % (Auto) % Lymph % (Auto) % [place] % (Auto) % Eos % (Auto) % Baso % (Auto) % Neut # (Auto) (1.4-6.5) K/uL Lymph # (Auto) (1.2-3.4) K/uL [place] # (Auto) (0.24-0.82) K/uL Eos # (Auto) (0-0.50) K/uL Baso # (Auto) (0-0.2) K/uL Immature Gran # (Auto) (0.00-0.02) K/uL PT (9.0-12.0) Seconds INR (0.9-1.1) APTT (21.0-31.0) Seconds PTT Ratio VBG pH 7.38 (7.36-7.41) VBG pCO2 59 H (38-50) mmHg VBG pO2 24 mmHg VBG HCO3 35 mmol/L VBG O2 Saturation < 60.0 % VBG Base Excess 7.7 mEq/L POC Sodium (135-144) mmol/L Sodium 134 L (136-145) mmol/L POC Potassium (3.3-5.0) mmol/L Potassium 6.5 H* (3.5-5.1) mmol/L POC Chloride (101-112) mmol/L Chloride 91 L (98-107) mmol/L Carbon Dioxide 29 (21-32) mmol/L POC Total CO2 (24-31) mmol/L Anion Gap 14 H (3-11) POC Anion Gap (16-25) mmol/L POC BUN (7-18) mg/dl BUN 74 H (6-23) mg/dl Creatinine 12.17 H* (0.6-1.4) mg/dl POC Creatinine (0.6-1.3) mg/dl Est Cr Clr Drug Dosing 8.6 ml/min Est GFR ( Amer) 4.4 ml/min Est GFR (Non-Af Amer) 3.8 ml/min BUN/Creatinine Ratio 6.1 L (10-20) Glucose 115 H (70-99(Fasting)) mg/dl POC Glucose (other) (70-99) mg/dl Lactate (0.4-2.0) mmol/L Calcium 9.0 (8.5-10.1) mg/dl POC Ioniz Calcium Alessandro (1.12-1.32) mmol/l Magnesium 2.2 (1.7-2.4) mg/dl Total Bilirubin 0.6 (0.2-1.0) mg/dl AST 12 L (13-39) U/L ALT 11 (7-52) U/L Alkaline Phosphatase 87 (34-104) U/L Troponin I High Sens 21.5 H (0-20) pg/ml Total Protein 7.7 (6.0-8.3) gm/dl Albumin 3.9 (3.4-5.0) gm/dl Globulin 3.8 (2.5-4.0) gm/dl Albumin/Globulin Ratio 1.0 (0.9-2) Procalcitonin 0.18 (0-0.5) ng/ml SARS-CoV-2, RNA, NAAT (NEGATIVE) 12/21/21 12/21/21 Range/Units 16:02 16:07 WBC (4.8-10.8) K/ul RBC (4.63-6.08) M/uL Hgb (14.0-18.0) g/dl POC Hgb 10.5 L (14.0-18.0) g/dl Hct (40.1-51.0) % POC Hct 31 L (42-52) % MCV (80.0-100.0) fL MCH (25.0-34.0) pg MCHC (32.0-36.0) g/dL RDW Std Deviation (36.4-46.3) fL RDW Coeff of Jorge A (11.5-14.5) % Plt Count (130-400) K/uL MPV (9.4-12.4) fL Immature Gran % (Auto) % Neut % (Auto) % Lymph % (Auto) % [place] % (Auto) % Eos % (Auto) % Baso % (Auto) % Neut # (Auto) (1.4-6.5) K/uL Lymph # (Auto) (1.2-3.4) K/uL [place] # (Auto) (0.24-0.82) K/uL Eos # (Auto) (0-0.50) K/uL Baso # (Auto) (0-0.2) K/uL Immature Gran # (Auto) (0.00-0.02) K/uL PT (9.0-12.0) Seconds INR (0.9-1.1) APTT (21.0-31.0) Seconds PTT Ratio VBG pH (7.36-7.41) VBG pCO2 (38-50) mmHg VBG pO2 mmHg VBG HCO3 mmol/L VBG O2 Saturation % VBG Base Excess mEq/L POC Sodium 133 L (135-144) mmol/L Sodium (136-145) mmol/L POC Potassium 6.3 H* (3.3-5.0) mmol/L Potassium (3.5-5.1) mmol/L POC Chloride 94 L (101-112) mmol/L Chloride (98-107) mmol/L Carbon Dioxide (21-32) mmol/L POC Total CO2 30 (24-31) mmol/L Anion Gap (3-11) POC Anion Gap 17.0 (16-25) mmol/L POC BUN 76 H (7-18) mg/dl BUN (6-23) mg/dl Creatinine (0.6-1.4) mg/dl POC Creatinine 13.5 H* (0.6-1.3) mg/dl Est Cr Clr Drug Dosing ml/min Est GFR ( Amer) ml/min Est GFR (Non-Af Amer) ml/min BUN/Creatinine Ratio (10-20) Glucose (70-99(Fasting)) mg/dl POC Glucose (other) 121 H (70-99) mg/dl Lactate 1.1 (0.4-2.0) mmol/L Calcium (8.5-10.1) mg/dl POC Ioniz Calcium Alessandro 1.00 L (1.12-1.32) mmol/l Magnesium (1.7-2.4) mg/dl Total Bilirubin (0.2-1.0) mg/dl AST (13-39) U/L ALT (7-52) U/L Alkaline Phosphatase (34-104) U/L Troponin I High Sens (0-20) pg/ml Total Protein (6.0-8.3) gm/dl Albumin (3.4-5.0) gm/dl Globulin (2.5-4.0) gm/dl Albumin/Globulin Ratio (0.9-2) Procalcitonin (0-0.5) ng/ml SARS-CoV-2, RNA, NAAT (NEGATIVE) Administered Medications Amlodipine Besylate (Amlodipine Besylate 5 Mg Tab) 10 mg PO HS KATELYNN Stop: 01/20/22 22:04 Last Admin: 12/22/21 01:02 Dose: 10 mg Documented By: AMB Buspirone HCl (Buspirone 15 Mg Tab) 15 mg PO AMHS KATLEYNN Stop: 01/20/22 22:04 Last Admin: 12/22/21 01:01 Dose: 15 mg Documented By: AMB Carvedilol (Carvedilol 12.5 Mg Tab) 12.5 mg PO BID KATELYNN Stop: 01/20/22 22:04 Last Admin: 12/22/21 01:01 Dose: 12.5 mg Documented By: AMB Furosemide (Furosemide 80 Mg Tab) 80 mg PO BID17 KATELYNN Stop: 01/20/22 22:29 Last Admin: 12/22/21 08:36 Dose: 80 mg Documented By: Admin: 12/22/21 01:00 Dose: 80 mg Documented By: BERNADETTE Gabapentin (Gabapentin 300 Mg Cap) 300 mg PO HS [facility] Stop: 01/20/22 22:04 Last Admin: 12/22/21 01:02 Dose: 300 mg Documented By: BERNADETTE Insulin Aspart (Insulin Aspart Per Unit) 0 units SC ACHS [facility] Stop: 01/20/22 22:29 Last Admin: 12/22/21 08:33 Dose: 7 units Documented By: GERALD Co-signed By: DAMIEN Admin: 12/22/21 00:45 Dose: 4 units Documented By: BERNADETTE Co-signed By: TAZ Insulin Detemir (Insulin Detemir Flexpen/Flex Touch 100 Units/Ml 3ml) 12 [facility] Stop: 01/21/22 08:59 Last Admin: 12/22/21 08:34 Dose: 12 units Documented By: GERALD Co-signed By: DAMIEN Levothyroxine Sodium (Levothyroxine Sodium 125 Mcg Tablet) 125 mcg PO DAILYBB [facility] Stop: 01/21/22 06:29 Last Admin: 12/22/21 06:31 Dose: 125 mcg Documented By: BERNADETTE Pantoprazole Sodium (Pantoprazole 40 Mg Tab) [facility] [place] Stop: 01/21/22 08:59 Last Admin: 12/22/21 08:36 Dose: 40 mg Documented By: GERALD Sevelamer HCl (Sevelamer Hcl 800 Mg Tablet) 2,400 mg PO TIDM [facility] Stop: 01/21/22 07:59 Last Admin: 12/22/21 08:35 Dose: 2,400 mg Documented By: GERALD Simvastatin (Simvastatin 20 Mg Tab) 20 mg PO [facility] Stop: 01/20/22 22:04 Last Admin: 12/22/21 01:01 Dose: 20 mg Documented By: BERNADETTE Discontinued Medications Epoetin Sebastian (Epoetin Sebastian 10,000 Units/Ml Vial) 10,000 units IV TODAY@1633 [facility] Stop: 12/21/21 18:30 Last Admin: 12/21/21 21:32 Dose: Not Given Documented By: ELIDIA Insulin Aspart (Insulin Aspart Per Unit) 0 units SC ONE ONE Stop: 12/22/21 04:01 Last Admin: 12/22/21 04:17 Dose: 5 units Documented By: BERNADETTE Co-signed By: BK Imaging Data Radiologist's Impression: Chest X-Ray 12/21/21 15:39 XR chest 1V portable CLINICAL HISTORY: SEPSIS TECHNIQUE: Single frontal radiograph of the chest was obtained. Comparison: Comparison is made to chest radiograph 08/04/2021 FINDINGS: Exam is limited by underpenetration. Cardiomegaly is noted. Prominence and cephalization of the vasculature is seen. Scattered airspace opacities are seen most prominent in the left lower lung. There is likely a left pleural effusion. IMPRESSION: Stable cardiomegaly with mild to moderate pulmonary edema. Scattered airspace opacities which may represent atelectasis, pneumonia, aspiration, and/or a lveolar edema. ACT 112: Negative or not required by law. Electronically signed by: Kishan Burns M.D. 12/21/2021 4:13 PM Discharge Plan Visit Data Chief Complaint: Respiratory Distress ED Provider: Alberto Cho Discharge Problem: Respiratory failure, Hyperkalemia, ESRD (end stage renal disease) on dialysis, Pulmonary edema, Acute renal failure Patient Disposition: Admitted As Inpatient Discharge Instructions Interventions: ED Discharge Assessment Last Done: 12/21/21 17:30 : Respiratory failure Qualifiers: Chronicity: acute Respiratory failure complication: hypoxia Qualified Code(s): J96.01 - Acute respiratory failure with hypoxia Pulmonary edema Qualifiers: Chronicity: acute Qualified Code(s): J81.0 - Acute pulmonary edema Acute renal failure Qualifiers: Acute renal failure type: unspecified Qualified Code(s): N17.9 - Acute kidney failure, unspecified
[2021-12-21 16:12] LABS: Base Excess VBG 7.7 mEq/L; HCO3 VBG 35 mmol/L; Oxygen Saturation VBG < 60.0 %; PCO2 VBG 59 mmHg (38-50); PO2 VBG 24 mmHg; pH VBG 7.38 (7.36-7.41)
[2021-12-21 16:14] LABS: Basophils # (auto) 0.08 K/uL (0-0.2); Basophils % (auto) 0.6 %; Eosinophils # (auto) 0.09 K/uL (0-0.50); Eosinophils % (auto) 0.7 %; Hematocrit (blood only) 31.6 % (40.1-51.0); Hemoglobin 10.4 g/dl (14.0-18.0); Immature Granulocytes # (auto) 0.07 K/uL (0.00-0.02); Immature Granulocytes % (auto) 0.5 %; Lymphocytes # (auto) 1.49 K/uL (1.2-3.4); Mean Corpuscular Hgb Conc 32.9 g/dL (32.0-36.0); Mean Corpuscular Volume 100.3 fL (80.0-100.0); Mean Platelet Volume 10.6 fL (9.4-12.4); Monocytes # (auto) 0.79 K/uL (0.24-0.82); Monocytes % (auto) 5.9 %; Neutrophils # (auto) 10.98 K/uL (1.4-6.5); Neutrophils % (auto) 81.3 %; Platelet Count 209 K/uL (130-400); RDW Coefficient of Variation 12.7 % (11.5-14.5); RDW Standard Deviation 46.1 fL (36.4-46.3); Red Blood Count 3.15 M/uL (4.63-6.08)
--- NOTE | 2021-12-21 16:14 | XRay Report ---
XR chest 1V portable CLINICAL HISTORY: SEPSIS TECHNIQUE: Single frontal radiograph of the chest was obtained. Comparison: Comparison is made to chest radiograph 08/04/2021 FINDINGS: Exam is limited by underpenetration. Cardiomegaly is noted. Prominence and cephalization of the vascu lature is seen. Scattered airspace opacities are seen most prominent in the left lower lung. There is likely a left pleural effusion. IMPRESSION: Stable cardiomegaly with mild to moderate pulmonary edema. Scattered airspace opacities which may rep resent atelectasis, pneumonia, aspiration, and/or alveolar edema. ACT 112: Negative or not required by law. Electronically signed by: Kishan Burns M.D. 12/21/2021 4:13 PM
[2021-12-21 16:15] LABS: iSTAT Creatinine 13.5 mg/dl (0.6-1.3); iSTAT Hemoglobin 10.5 g/dl (14.0-18.0); iSTAT Potassium 6.3 mmol/L (3.3-5.0)
--- NOTE | 2021-12-21 16:22 | Nephrology Consultation ---
Date of Consultation December 21, 2021 Assessment & Plan (1) ESRD (end stage renal disease) on dialysis: (2) Secondary hyperparathyroidism of renal origin: (3) Anemia in chronic kidney disease: (4) Morbid obesity with BMI of 40.0-44.9, adult: (5) Missed dialysis: (6) Volume overload: Plan End-stage kidney disease on hemodialysis TTS, admitted to the hospital with missed dialysis, volume overload and respiratory failure. -- Plan for emergency HD now for 4 hours, with 2K bath, UF 3 to 4 L, EDW 131.2 kg, he is significantly above his EDW. -- dose medications for GFR less than 10 -- continue phosphate binder with meal, Continue Nephrocaps -- MARILYN [id number] units x 1 dose with HD -- left arm nephrology precaution, fluid restriction < 1.5 L/d Will follow Thank you for allowing me to participate in your patient's care. It was a pleasure to see Sebastián History of Present Illness Reason for Consultation: ESKD, missed dialysis, volume overload, respiratory failure. History of Present Illness Mr. Patiño is a 66-year-old male with past medical history significant for ESRD on HD,DM, JANET, ASCVD, current tobacco use, hypothyroidism, obesity presented to the hospital with missed dialysis, volume overload, respiratory failure. Nephrology consult was requested to arrange emergency HD. Sebastián was brought to the ER by ambulance for SOB, low Os sat and respiratory failure with volume overload. His caregiver saw him in severe respiratory distress and called 911.He missed dialysis on Tuesday, last HD was on and did not have HD for 4 days.He reports he had a family reunion and missed HD because of that. EDW 131.2 kg, he generally has high weight gain usually 4 to 6 kg, he was 131.4 kg after last HD with 4.1 L UF. He denies having any nausea or vomiting.On arrival to ER he was found to be in respiratory distress, RA O2 sat was reported to be <80% and was placed immediately on BiPAP. He states his symptoms have significantly improved at this time. Mr. Patiño has ESRD due to diabetic nephropathy, on HD TTS at [facility]. His last dialysis was and he did not show up for dialysis Tuesday. Blood pressure and volume status acceptable. He has chronic history significant weight gain to 4 to 5 kg in between treatments. EDW has been 131.2 kg. Allergies Allergy/AdvReac Type Severity Reaction Status Date / Time lactose AdvReac Intermediate Gastrointestinal Verified 12/21/21 16:37 Upset Home Medications Medication Instructions Recorded Confirmed Type nitroglycerin 0.4 mg sublingual 0.4 mg sublingual DIRECTED PRN 07/11/20 12/21/21 History tablet Chest Pain HYDRAULIC KHADAR LIFT #1 ea 01/26/21 11/11/21 Rx FreeStyle Virgil 14 Day [place] #1 ea 03/08/21 11/11/21 Rx (flash glucose scanning reader) sevelamer carbonate 800 mg tablet 2,400 mg PO TIDM 04/04/21 12/21/21 History simvastatin 20 mg tablet 20 mg PO HS 05/12/21 12/21/21 History furosemide 80 mg tablet (Lasix) 80 mg PO BID #180 tabs 06/08/21 12/21/21 Rx amlodipine 10 mg tablet 10 mg PO HS #90 tabs 07/02/21 12/21/21 Rx levothyroxine 125 mcg tablet 125 mcg PO QAM #90 tabs 07/02/21 12/21/21 Rx losartan 50 mg tablet 50 mg PO QAM #90 tabs 07/02/21 12/21/21 Rx gabapentin 100 mg capsule 300 mg PO HS Pain #270 caps 07/07/21 12/21/21 Rx FreeStyle Virgil 14 Day Sensor #6 ea 08/10/21 11/11/21 Rx (flash glucose sensor) insulin detemir U-100 100 unit/mL 15 unit (0.15 mL) subcut DAILY 90 09/30/21 12/21/21 Rx (3 mL) subcutaneous pen (Levemir days #15 mL FlexTouch U-100 Insulin) omeprazole 20 mg capsule,delayed 20 mg PO QAM #180 caps 09/30/21 12/21/21 Rx release pen needle, diabetic 32 gauge x #100 ea 10/02/21 11/11/21 Rx 1/4" (BD Ultra-Fine Micro Pen Needle) carvedilol 12.5 mg tablet 12.5 mg PO BID #180 tabs 10/22/21 12/21/21 Rx aspirin 81 mg tablet,delayed 81 mg PO DAILY 12/21/21 12/21/21 History release buspirone 15 mg tablet 15 mg PO AMHS 12/21/21 12/21/21 History escitalopram oxalate 20 mg tablet 20 mg PO QAM 12/21/21 12/21/21 History Patient History Medical History (Updated 12/21/21 @ 16:21 by Carlie France MD) Anemia in chronic kidney disease Anxiety Bedbound Depression DM type 2 (diabetes mellitus, type 2) Dyslipidemia Dysphagia ESRD (end stage renal disease) on dialysis started in 2019 - [facility], [place] - [facility] in [place]. (per sister, testing lead recommends 5xwk but pt refuses) Fistula LUE GERD (gastroesophageal reflux disease) Hypothyroidism Limb alert care status LUE Missed dialysis Morbid obesity with BMI of 40.0-44.9, adult Multiple system atrophy Osteoarthritis Personal history of diabetic foot ulcer Secondary hyperparathyroidism of renal origin Tremor Unable to ambulate khadar lift Volume overload Surgical History Amputation of one or more toes 06-16-21 Left Foot 2nd and 3rd Toe Amputation - Demetrius Vela MD, [facility] History of bilateral cataract extraction History of cardiac cath 01/2018 "about 2-3 weeks"; no stents placed @ [facility] by Dr. Coronel History of carpal tunnel release R wrist History of colonoscopy History of esophagogastroduodenoscopy (EGD) History of repair of anterior cruciate ligament of left knee History of repair of anterior cruciate ligament of right knee History of tonsillectomy History of tooth extraction wisdom teeth Family History Mother Family history of diabetes mellitus Grandmother Family history of diabetes mellitus maternal Other Colorectal cancer Inflammatory bowel disease Melanoma Social History Smoking Status: Current every day smoker Tobacco Type: Cigarettes Age Started Using Tobacco: 15; Cigarettes Per Day: 1 ppd; Second Hand Exposure: Yes (as a child); Hx Alcohol Use: Yes Alcohol type: beer Hx Substance Use: No Preferred Language: Kazakh Communication Ability: Effective 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 in wheelchair.) Assistive Devices: CPAP, Hospital Bed, Mechanical Lift, Oxygen - Continuous, Wheelchair and Other Review of Systems Review of Systems: Detail ROS was done and pertinent positives and negatives were mentioned in HPI. Physical Exam Constitutional: WD/WN, vitals as above + acute distress and + morbidly obese Eyes: + anicteric sclerae Neck: normal visual inspection Respiratory: + respiratory distress Auscultation: + crackles; no wheezes Cardiovascular: Rate/Rhythm: regular rate and regular rhythm Heart Sounds: normal S1 and normal S2 Extremities: + AV fistula (left BC AVF with thrill and bruit.); no edema Gastrointestinal (Abdomen): Inspection/Auscultation: normal bowel sounds Percussion/Palpation: abdomen soft; abdomen nontender Musculoskeletal: Extremities: extremities normal to inspection Skin: no rashes Neurologic: no focal motor deficits and not confused Psychiatric: Orientation: alert and oriented x 3 Affect: euthymic affect Results & Data ([facility]) Vital Signs (Past 12 Hours) Vital Signs Temp Pulse Pulse Resp BP BP Pulse Ox 12/21/21 16:10 138/58 L 12/21/21 16:10 21 94 12/21/21 16:02 82/47 L 12/21/21 16:02 24 93 12/21/21 16:00 23 93 12/21/21 15:54 129/76 12/21/21 15:54 18 96 12/21/21 15:45 23 100 12/21/21 15:42 24 12/21/21 15:40 129 H 24 100 12/21/21 16:01 69 24 96 12/21/21 15:44 69 22 129/76 96 12/21/21 15:44 96 12/21/21 15:44 36.8 C 69 22 129/76 96 O2 Del Method FiO2 12/21/21 16:10 12/21/21 16:10 BiPAP 12/21/21 16:02 12/21/21 16:02 BiPAP 12/21/21 16:00 BiPAP 12/21/21 15:54 12/21/21 15:54 BiPAP 12/21/21 15:45 BiPAP 12/21/21 15:42 12/21/21 15:40 30 12/21/21 16:01 BiPAP 12/21/21 15:44 BiPAP 30 12/21/21 15:44 BiPAP 30 12/21/21 15:44 BiPAP 30 PG Care Time/CCT Total # of Minutes Spent Total Time Spent with Patient: Total time spent is greater than 50% in coordination of care (as documented) at patient's floor/unit and/or counseling patient: Coding Level of Care Code 14173 Initial Inpt Care Lvl 3 Diagnoses ESRD (end stage renal disease) on dialysis N18.6; Z99.2 Secondary hyperparathyroidism of renal origin N25.81 Anemia in chronic kidney disease N18.6; D63.1; Z99.2 Chronic kidney disease stage: on chronic dialysis Morbid obesity with BMI of 40.0-44.9, adult E66.01; Z68.41 Missed dialysis Volume overload E87.70 (1) Anemia in chronic kidney disease Chronic kidney disease stage: on chronic dialysis Qualified Code(s): N18.6 - End stage renal disease; D63.1 - Anemia in chronic kidney disease; Z99.2 - Dependence on renal dialysis
[2021-12-21] MEDS ORDERED: EPOETIN ALFA 10,000 UNITS/ML VIAL IV STA (16:33)
[2021-12-21] MEDS ORDERED: EPOETIN ALFA 10,000 UNITS/ML VIAL IV SCH (16:33)
[2021-12-21 16:47] LABS: INR 1.3 (0.9-1.1); Partial Thromboplastin Time 26.9 Seconds (21.0-31.0); Prothrombin Time 13.9 Seconds (9.0-12.0)
[2021-12-21 16:54] LABS: Troponin I High Sensitivity 21.5 pg/ml (0-20)
[2021-12-21 17:06] LABS: Albumin Level 3.9 gm/dl (3.4-5.0); BUN Creatinine Ratio 6.1 (10-20); Bilirubin,Total 0.6 mg/dl (0.2-1.0); Creatinine Clr Calc Pharmacy 8.6 ml/min; Est GFR (African American) 4.4 ml/min; Est GFR (Non-African American) 3.8 ml/min; Globulin 3.8 gm/dl (2.5-4.0); Magnesium 2.2 mg/dl (1.7-2.4); Potassium 6.5 mmol/L (3.5-5.1); Total Protein 7.7 gm/dl (6.0-8.3)
--- NOTE | 2021-12-21 18:28 | History & Physical Report ---
Date of Service December 21, 2021 Assessment & Plan (1) Volume overload: Plan: Maxx is a six 6-year-old male dialysis dependent who presents with acute on chronic respiratory failure due to missing dialysis. History is limited at bedside due to BiPAP and somnolence, but is gradually improving on reassessment with dialysis. Acute hypoxic respiratory failure 2/2 ESRD, missed dialysis obvious fluid overload on exam, with hyper kalemia Dialysis dependent, missed dialysis on Tuesday Taken emergently to dialysis from ER Continue amlodipine Continue aspirin Continue carvedilol Continue Lasix Continue losartan Continue BiPAP, patient clinically improving on reassessment and anticipate after another liter of fluid will be able to remove Hemoglobin 10.4, potassium 6.3, sodium 134, creatinine 12.17, BSG 115. Troponin 21.5, mildly elevated likely with demand/fluid overload. 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 until respiratory status improves (2) Dysphagia: (3) DM type 2 (diabetes mellitus, type 2): (4) Hypothyroidism: (5) Hypertension: (6) Molina's thyroiditis: (7) Depression: (8) Background diabetic retinopathy associated with type 2 diabetes mellitus: (9) GERD (gastroesophageal reflux disease): (10) Anemia in chronic kidney disease: History of Present Illness Primary Care Provider: Veto Gan DO Maxx Patiño is a 66-year-old male with a past medical history of ESRD on dialysis, complex sleep apnea, hypothyroidism, hypertension, Molina's, type 2 diabetes with nephropathy, tobacco abuse, GERD, morbid obesity, secondary hyperparathyroidism, and anemia who presented to the emergency department for shortness of breath. Typically has dialysis //. Missed dialysis on Tuesday and was with progressively worsening shortness of breath, caregiver found him in respiratory distress and was placed on BiPAP. Patient was seen urgently by dialysis, and was taken to emergency dialysis with plan for 4-hour treatment. Estimated dry weight 131.2 kg, 147.8 kG by bed weight on admission. Patient is seen in dialysis, somnolent but arousable. Denies chest pain/chest pressure endorses fatigue. Seen on later reevaluation, continues to be somnolent but improving with 1.5 L removed. Subjective limited by somnolence/BiPAP. No respiratory distress at time of reevaluation Medical History: Reviewed Medications: Reviewed Surgical History: Reviewed Allergies: Reviewed Social History: Reviewed Code Status: Full Allergies Allergy/AdvReac Type Severity Reaction Status Date / Time lactose AdvReac Intermediate Gastrointestinal Verified 12/21/21 16:37 Upset Home Medications Medication Instructions Recorded Confirmed Type nitroglycerin 0.4 mg sublingual 0.4 mg sublingual DIRECTED PRN 07/11/20 12/21/21 History tablet Chest Pain HYDRAULIC KHADAR LIFT #1 ea 01/26/21 11/11/21 Rx FreeStyle Virgil 14 Day [place] #1 ea 03/08/21 11/11/21 Rx (flash glucose scanning reader) sevelamer carbonate 800 mg tablet 2,400 mg PO TIDM 04/04/21 12/21/21 History simvastatin 20 mg tablet 20 mg PO HS 05/12/21 12/21/21 History furosemide 80 mg tablet (Lasix) 80 mg PO BID #180 tabs 06/08/21 12/21/21 Rx amlodipine 10 mg tablet 10 mg PO HS #90 tabs 07/02/21 12/21/21 Rx levothyroxine 125 mcg tablet 125 mcg PO QAM #90 tabs 07/02/21 12/21/21 Rx losartan 50 mg tablet 50 mg PO QAM #90 tabs 07/02/21 12/21/21 Rx gabapentin 100 mg capsule 300 mg PO HS Pain #270 caps 07/07/21 12/21/21 Rx FreeStyle Virgil 14 Day Sensor #6 ea 08/10/21 11/11/21 Rx (flash glucose sensor) insulin detemir U-100 100 unit/mL 15 unit (0.15 mL) subcut DAILY 90 09/30/21 12/21/21 Rx (3 mL) subcutaneous pen (Levemir days #15 mL FlexTouch U-100 Insulin) omeprazole 20 mg capsule,delayed 20 mg PO QAM #180 caps 09/30/21 12/21/21 Rx release pen needle, diabetic 32 gauge x #100 ea 10/02/21 11/11/21 Rx 1/4" (BD Ultra-Fine Micro Pen Needle) carvedilol 12.5 mg tablet 12.5 mg PO BID #180 tabs 10/22/21 12/21/21 Rx aspirin 81 mg tablet,delayed 81 mg PO DAILY 12/21/21 12/21/21 History release buspirone 15 mg tablet 15 mg PO AMHS 12/21/21 12/21/21 History escitalopram oxalate 20 mg tablet 20 mg PO QAM 12/21/21 12/21/21 History Past Med/Surg History Medical History (Updated 12/21/21 @ 16:21 by Carlie France MD) Anemia in chronic kidney disease Anxiety Bedbound Depression DM type 2 (diabetes mellitus, type 2) Dyslipidemia Dysphagia ESRD (end stage renal disease) on dialysis started in 2018 - [place] , [place] - [facility] in [place]. (per sister, dance instructor recommends 5xwk but pt refuses) Fistula LUE GERD (gastroesophageal reflux disease) Hypothyroidism Limb alert care status LUE Missed dialysis Morbid obesity with BMI of 40.0-44.9, adult Multiple system atrophy Osteoarthritis Personal history of diabetic foot ulcer Secondary hyperparathyroidism of renal origin Tremor Unable to ambulate khadar lift Volume overload Surgical History Amputation of one or more toes 3 Left Foot 2nd and 3rd Toe Amputation - Demetrius Vela MD, [facility] History of bilateral cataract extraction History of cardiac cath 01/2018 "about 2-3 weeks"; no stents placed @ [facility] by Dr. Coronel History of carpal tunnel release R wrist History of colonoscopy History of esophagogastroduodenoscopy (EGD) History of repair of anterior cruciate ligament of left knee History of repair of anterior cruciate ligament of right knee History of tonsillectomy History of tooth extraction wisdom teeth Family History Mother Family history of diabetes mellitus Grandmother Family history of diabetes mellitus maternal Other Colorectal cancer Inflammatory bowel disease Melanoma Social History Smoking Status: Current every day smoker Tobacco Type: Cigarettes Age Started Using Tobacco: 15; Cigarettes Per Day: 1 ppd; Second Hand Exposure: Yes (as a child); Hx Alcohol Use: Yes Alcohol type: beer Hx Substance Use: No Preferred Language: Greek Communication Ability: Effective 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 in wheelchair.) Assistive Devices: CPAP, Hospital Bed, Mechanical Lift, Oxygen - Continuous, Wheelchair and Other Review of Systems Review of Systems: All systems reviewed & are unremarkable except as noted in Subjective Physical Exam Physical Exam: General: Somnolent, but arousable. NAD. Cooperative. HEENT: Atraumatic, normocephalic. Vision/hearing grossly intact. Pulm: Bibasilar rales. on Bipap. Symmetrical chest rise. No increased work of breathing. No respiratory distress. Cardiac: RRR, -mrg. Radial pulses intact and symmetrical. Abdominal: Nontender, nondistended, soft. BS present. Ext: Warm, dry. +edema bilat Results & Data Results & Data ([facility]) Vital Signs (Past 12 Hours) Vital Signs Temp Pulse Pulse Resp BP BP Pulse Ox 12/21/21 17:10 99 H 23 95 12/21/21 17:15 66 16 93 12/21/21 17:04 149/60 H 12/21/21 17:04 24 97 12/21/21 17:01 90/62 L 12/21/21 17:01 67 22 95 12/21/21 17:00 65 22 95 12/21/21 16:45 71 23 93 12/21/21 16:31 146/73 H 12/21/21 16:31 23 92 12/21/21 16:30 24 92 12/21/21 16:15 22 95 12/21/21 16:34 66 24 146/73 H 96 12/21/21 16:10 138/58 L 12/21/21 16:10 21 94 12/21/21 16:02 82/47 L 12/21/21 16:02 24 93 12/21/21 16:00 23 93 12/21/21 15:54 129/76 12/21/21 15:54 18 96 12/21/21 15:45 23 100 12/21/21 15:42 24 12/21/21 15:40 129 H 24 100 12/21/21 16:01 69 24 96 12/21/21 15:44 69 22 129/76 96 12/21/21 15:44 96 12/21/21 15:44 36.8 C 69 22 129/76 96 O2 Del Method FiO2 12/21/21 17:10 30 12/21/21 17:15 BiPAP 12/21/21 17:04 12/21/21 17:04 BiPAP 12/21/21 17:01 12/21/21 17:01 BiPAP 12/21/21 17:00 BiPAP 12/21/21 16:45 BiPAP 12/21/21 16:31 12/21/21 16:31 BiPAP 12/21/21 16:30 BiPAP 12/21/21 16:15 BiPAP 12/21/21 16:34 BiPAP 30 12/21/21 16:10 12/21/21 16:10 BiPAP 12/21/21 16:02 12/21/21 16:02 BiPAP 12/21/21 16:00 BiPAP 12/21/21 15:54 12/21/21 15:54 BiPAP 12/21/21 15:45 BiPAP 12/21/21 15:42 12/21/21 15:40 30 12/21/21 16:01 BiPAP 12/21/21 15:44 BiPAP 30 12/21/21 15:44 BiPAP 30 12/21/21 15:44 BiPAP 30 PG Care Time/CCT Total # of Minutes Spent Total Time Spent with Patient: Total time spent is greater than 50% in coordination of care (as documented) at patient's floor/unit and/or counseling patient: Coding Level of Care Code 01333 Initial Inpt Care Lvl 3 Diagnoses Volume overload E87.70 Dysphagia R13.10 DM type 2 (diabetes mellitus, type 2) E11.9 Hypothyroidism E03.9 Hypothyroidism type: unspecified Hypertension I10 Hypertension type: essential hypertension Molina's thyroiditis E06.3 Depression F32.9 Depression Type: unspecified Background diabetic retinopathy associated with type 2 diabetes mellitus E11.32 99 GERD (gastroesophageal reflux disease) K21.9 Anemia in chronic kidney disease N18.6; D63.1; Z99.2 Chronic kidney disease stage: on chronic dialysis (1) Hypothyroidism Hypothyroidism type: unspecified Qualified Code(s): E03.9 - Hypothyroidism, unspecified (2) Hypertension Hypertension type: essential hypertension Qualified Code(s): I10 - Essential (primary) hypertension (3) Depression Depression Type: unspecified Qualified Code(s): F32.9 - Major depressive disorder, single episode, unspecified (4) Anemia in chronic kidney disease Chronic kidney disease stage: on chronic dialysis Qualified Code(s): N18.6 - End stage renal disease; D63.1 - Anemia in chronic kidney disease; Z99.2 - Dependence on renal dialysis
[2021-12-21] MEDS ORDERED: GLUCOSE 40% GEL 15 GM TUBE PO PRN (22:05)
[2021-12-21] MEDS ORDERED: DEXTROSE 50% 50 ML SYRINGE IV PRN (22:05)
[2021-12-21] MEDS ORDERED: PHARMACY GLYCEMIC MGMT CONSULT PRN (22:05)
[2021-12-21] MEDS ORDERED: CARBOHYDRATES FOR HYPOGLYCEMIA PO PRN (22:05)
[2021-12-21] MEDS ORDERED: NITROGLYCERIN SL 0.4 MG/TAB TAB SL PRN (22:05)
[2021-12-21] MEDS ORDERED: GLUCAGON FOR INJ 1 MG VIAL SQ PRN (22:05)
[2021-12-21] MEDS ORDERED: GLUCOSE 10 TAB/TUBE PO PRN (22:05)
[2021-12-21] MEDS ORDERED: ACETAMINOPHEN 325 MG TAB PO PRN (22:05)
[2021-12-22] MEDS: INSULIN ASPART PER UNIT SC SCH ×5 (00:45→20:37)
[2021-12-22] MEDS: FUROSEMIDE 80 MG TAB PO SCH ×3 (01:00→17:16)
[2021-12-22] MEDS: SIMVASTATIN 20 MG TAB PO SCH ×2 (01:01→20:06)
[2021-12-22] MEDS: carvediloL 12.5 MG TAB PO SCH ×3 (01:01→20:06)
[2021-12-22] MEDS: busPIRone 15 MG TAB PO SCH ×3 (01:01→20:06)
[2021-12-22] MEDS: GABAPENTIN 300 MG CAP PO SCH ×2 (01:02→20:06)
[2021-12-22] MEDS: amLODIPine BESYLATE 5 MG TAB PO SCH ×2 (01:02→20:06)
[2021-12-22] MEDS ORDERED: INSULIN ASPART PER UNIT SC ONE (04:00)
[2021-12-22 04:36] LABS: Hematocrit (blood only) 31.3 % (40.1-51.0); Hemoglobin 10.3 g/dl (14.0-18.0); Mean Corpuscular Hemoglobin 32.9 pg (25.0-34.0); Mean Corpuscular Hgb Conc 32.9 g/dL (32.0-36.0); Mean Platelet Volume 10.2 fL (9.4-12.4); Platelet Count 175 K/uL (130-400); RDW Coefficient of Variation 12.6 % (11.5-14.5); RDW Standard Deviation 45.8 fL (36.4-46.3); Red Blood Count 3.13 M/uL (4.63-6.08); White Blood Count 8.82 K/ul (4.8-10.8)
[2021-12-22 04:51] LABS: Basophils # (auto) 0.01 K/uL (0-0.2); Basophils % (auto) 0.1 %; Immature Granulocytes # (auto) 0.05 K/uL (0.00-0.02); Immature Granulocytes % (auto) 0.6 %; Lymphocytes # (auto) 0.63 K/uL (1.2-3.4); Lymphocytes % (auto) 7.1 %; Monocytes # (auto) 0.08 K/uL (0.24-0.82); Monocytes % (auto) 0.9 %; Neutrophils # (auto) 8.05 K/uL (1.4-6.5); Neutrophils % (auto) 91.3 %; RBC Morphology Unremarkable
[2021-12-22 04:59] LABS: BUN Creatinine Ratio 5.3 (10-20); Calcium 9.4 mg/dl (8.5-10.1); Creatinine Clr Calc Pharmacy 12.7 ml/min; Est GFR (African American) 7.4 ml/min; Est GFR (Non-African American) 6.4 ml/min; Phosphorus 5.7 mg/dl (2.5-4.9); Potassium 5.1 mmol/L (3.5-5.1)
[2021-12-22] MEDS: LEVOTHYROXINE SODIUM 125 MCG TABLET PO SCH (06:31)
[2021-12-22] MEDS: INSULIN DETEMIR FLEXPEN/FLEX TOUCH 100 UNITS/ML 3ML SC SCH (08:34)
[2021-12-22] MEDS: SEVELAMER HCL 800 MG TABLET PO SCH ×3 (08:35→17:16)
[2021-12-22] MEDS: PANTOprazole 40 MG TAB PO SCH (08:36)
[2021-12-22] MEDS ORDERED: INSULIN DETEMIR FLEXPEN/FLEX TOUCH 100 UNITS/ML 3ML SC SCH (09:00)
--- NOTE | 2021-12-22 09:00 | Pharmacy Report ---
Pharmacy Glycemic Short Note 2 - Date of Service December 22, 2021 - Glycemic Short BSG Results (Last 24 hours): 12/21/21 12/21/21 12/22/21 15:55 16:02 00:39 Glucose 115 H POC Glucose 209 H POC Glucose (other) 121 H 12/22/21 12/22/21 12/22/21 04:12 04:17 07:13 Glucose 187 H POC Glucose 224 H 184 H POC Glucose (other) OUTPATIENT ANTIDIABETIC REGIMEN: * Levemir 15 units SC daily * Patient's A1c = 6.5% (08/05/21) * However, this result is likely somewhat unreliable in ESRD patients d/t interactions between the A1c analyzing technique and high levels of urea in ESRD, reduced RBC life span, iron deficiency anemia, and EPO administration. HbA1c > 7.5% in ESRD patient may overestimate the extent of hyperglycemia in ESRD patients. ASSESSMENT: * WB is a 66 year old male who presented to ED yesterday for evaluation of shortness of breath * Patient found to have significant fluid overload secondary to missed dialysis session on Tuesday * Emergent dialysis performed in ED, ordered again for today * Pertinent PMH includes, ESRD on dialysis and T2DM * BSGs mildly elevated at this time * Will give conservative initial dose of Lantus, as patient is scheduled for dialysis today PLAN FOR INPATIENT GLYCEMIC CONTROL: * Basal insulin * Levemir 12 units SQ daily * Bolus insulin * NovoLog per scale ACHS or Q6hrs while NPO * Goal Range: Low 110 mg/dL - High 140 mg/dL * Correction Factor: 30 mg/dL/unit * Nutritional / Prandial insulin per carb ratio of 1 unit per 10 grams CHO consumed
--- NOTE | 2021-12-22 10:40 | Nephrology Progress Note ---
Date of Service December 22, 2021 Assessment & Plan (1) ESRD (end stage renal disease) on dialysis: (2) Secondary hyperparathyroidism of renal origin: (3) Anemia in chronic kidney disease: (4) Morbid obesity with BMI of 40.0-44.9, adult: (5) Missed dialysis: (6) Volume overload: Plan End-stage kidney disease on hemodialysis TTS, admitted to the hospital with missed dialysis, volume overload and respiratory failure. Had emergency dialysis yesterday for more than 10 kg weight gain, missed dialysis, respiratory distress and hyperkalemia, potassium was 6.5. -- getting dialysis now as his regular schedule with 2K bath, UF 3 to 4 L, EDW 131.2 kg, he is significantly above his EDW. -- dose medications for GFR less than 10 -- continue phosphate binder with meal, Continue Nephrocaps -- MARILYN 24259 units x 1 dose given with HD on 12/21/21 -- left arm nephrology precaution, fluid restriction < 1.5 L/d Will follow Admission and Anticipated Discharge Date Admission Date: December 21, 2021 Subjective Bill Was seen and examined during dialysis this morning. Has been tolerating dialysis well, blood pressure stable, no dizziness, leg cramps. Had emergency dialysis yesterday and had 3.2 L UF. Review of Systems Review of Systems: Detail ROS was done and pertinent positives and negatives were mentioned in HPI. Physical Exam Constitutional: WD/WN, vitals as above + obese and + edematous; no acute distress Eyes: + anicteric sclerae Neck: normal visual inspection Respiratory: normal respiratory effort Auscultation: + diminished lung sounds and + crackles Cardiovascular: Rate/Rhythm: regular rate and regular rhythm Heart Sounds: normal S1 and normal S2 Extremities: no edema Skin: no rashes Neurologic: no focal motor deficits Psychiatric: Orientation: alert and oriented x 3 Results & Data ([facility]) Vital Signs (Past 12 Hours) Vital Signs Temp Pulse Pulse Resp BP Pulse Ox O2 Del Method 12/22/21 07:14 36.6 C 64 20 163/72 H 97 BiPAP 12/22/21 04:25 75 12/22/21 03:40 64 18 97 12/22/21 02:52 36.9 C 69 16 160/66 H 97 12/21/21 23:01 37.0 C 75 14 135/61 99 BiPAP FiO2 12/22/21 07:14 12/22/21 04:25 12/22/21 03:40 30 12/22/21 02:52 12/21/21 23:01 PG Care Time/CCT Total # of Minutes Spent Total Time Spent with Patient: Total time spent is greater than 50% in coordination of care (as documented) at patient's floor/unit and/or counseling patient: Coding Level of Care Code 75787 Subseq Hosp Care Lvl 3 Diagnoses ESRD (end stage renal disease) on dialysis N18.6; Z99.2 Secondary hyperparathyroidism of renal origin N25.81 Anemia in chronic kidney disease N18.6; D63.1; Z99.2 Chronic kidney disease stage: on chronic dialysis Morbid obesity with BMI of 40.0-44.9, adult E66.01; Z68.41 Missed dialysis Volume overload E87.70 (1) Anemia in chronic kidney disease Chronic kidney disease stage: on chronic dialysis Qualified Code(s): N18.6 - End stage renal disease; D63.1 - Anemia in chronic kidney disease; Z99.2 - Dependence on renal dialysis
[2021-12-22] MEDS: ESCITALOPRAM OXALATE 20 MG TAB PO SCH (13:48)
[2021-12-22] MEDS: ASPIRIN 81 MG ECTAB PO SCH (13:49)
[2021-12-22] MEDS: LOSARTAN POTASSIUM 50 MG TAB PO SCH (13:49)
--- NOTE | 2021-12-22 15:03 | Hospitalist Progress Note ---
Date of Service December 22, 2021 Assessment & Plan (1) Goals of care, counseling/discussion: Plan: Patient reported not wanting to continue dialysis. Unclear if hospice in place at home to manage the patient. Clearly patient came to hospital for dialysis however and the patient is unable to explain the reasoning why he came to hospital for dialysis and now is refusing having it and doesn't appear to understand that he accepted dialysis today. He therefore does not appear to have capacity to make his medical decisions at this time. He appears to understand he will if he does not receive dialysis. Patient was also a full code when he was admitted and has been full code for the majority of his hospital stays with a few exceptions. Discussed with his son who reports him not wanting dialysis is new but advised talking to his sister. Sister called in and reports he is more confused than usual which occasionally happens for a few days after he misses dialysis, no answer when I tried to call her. Consult palliative care for goals of care discussion with family as patient appears to be quite adamant that he does not want to continue dialysis when he goes home. (2) Volume overload: Plan: Maxx is a six 6-year-old male dialysis dependent who presents with acute on chronic respiratory failure due to missing dialysis. History is limited at bedside due to BiPAP and somnolence, but is gradually improving on reassessment with dialysis. Acute hypoxic respiratory failure 2/2 ESRD, missed dialysis obvious fluid overload on exam, with hyper kalemia Dialysis dependent, missed dialysis on Tuesday Taken emergently to dialysis from ER Continue amlodipine Continue aspirin Continue carvedilol Continue Lasix Continue losartan Continue BiPAP, patient clinically improving on reassessment and anticipate after another liter of fluid will be able to remove Patient still hypervolemic but ok for discharge per Dr France. Patient however demonstrating a wish to stop dialysis all together therefore will keep him in hospital overnight for this discussion with his family tomorrow. I was unable to contact his sister today. He does note appear to have capacity to leave against medical advice given concerns he is more confused than usual. (3) Gram-positive cocci bacteremia: Plan: Suspected Staph epidermidis on 04/05 blood cultures Will repeat culture No need for antibiotics currently unless repeat cultures positive or both initial cultures positive. 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 SSI BSG 132452, glucose checks AC/at bedtime (6) Hypothyroidism: Plan: Continue Synthroid 25 mcg every morning TSH pending (7) Hypertension: Plan: Continue his usual home hair-hypertensives (8) Molina's thyroiditis: Plan: Continue levothyroxine (9) Depression: (10) Background diabetic retinopathy associated with type 2 diabetes mellitus: (11) GERD (gastroesophageal reflux disease): (12) Anemia in chronic kidney disease: Plan DVT prophylaxis: SCDs, heparin CODE STATUS: Full code Disposition: continue on PCU until disposition decided Diet: dialysis renal, low Na, T2DM Admission and Anticipated Discharge Date Admission Date: December 21, 2021 Subjective Patient seen and initially had O2 out of his nose. He is orientated to place, self and year. We discussed potential discharge home and he feels back at his baseline currently. However when asking him about going to dialysis and the importance of not missing sessions he tells me he no longer wants to go to dialysis and he probably won't go anymore when he gets home. Reportedly his sister called in and noted they have hospice set up at home, I was unable to contact her by phone. His son over the phone reported that stopping dialysis had not been previously discussed. Clearly the patient was brought to the hospital purely for dialysis and just had another dialysis session today therefore his idea of stopping dialysis appears out of the blue. We discussed hospice care as an alternative to dialysis and he would likely diet within 1-2 weeks and he demonstrated understanding of this. I highly recommended talking to his family about his wishes and will have palliative care involved tomorrow. Review of Systems Review of Systems: All systems reviewed & are unremarkable except as noted in Subjective Physical Exam Constitutional: WD/WN, vitals as above + obese and + edematous; no acute distress Eyes: + anicteric sclerae; normal pupil size Respiratory: normal respiratory effort Auscultation: + diminished lung sounds and + crackles Cardiovascular: Rate/Rhythm: regular rate and regular rhythm Heart Sounds: normal S1 and normal S2 Extremities: no edema Gastrointestinal (Abdomen): Inspection/Auscultation: normal bowel sounds Percussion/Palpation: abdomen soft; abdomen nontender Skin: no rashes Neurologic: moves all extremities and awake; no focal motor deficits and not confused Psychiatric: Orientation: alert and oriented x 3 Results & Data Results & Data ([place]) Vital Signs (Past 12 Hours) Vital Signs Temp Pulse Pulse Pulse Resp BP BP 12/22/21 13:00 62 156/74 H 12/22/21 13:35 37.4 C 72 157/74 H 12/22/21 12:30 63 145/75 H 12/22/21 13:47 36.6 C 75 20 180/72 H 12/22/21 06:08 65 12/22/21 12:00 63 110/56 L 12/22/21 11:30 61 142/64 H 12/22/21 11:00 69 115/59 L 12/22/21 10:30 61 131/59 L 12/22/21 10:00 68 136/61 12/22/21 09:30 62 122/56 L 12/22/21 09:16 64 133/58 L 12/22/21 09:08 37.2 C 70 12/22/21 08:00 12/22/21 07:14 36.6 C 64 20 163/72 H 12/22/21 04:25 75 12/22/21 03:40 64 18 Pulse Ox O2 Del Method O2 Flow Rate FiO2 12/22/21 13:00 12/22/21 13:35 12/22/21 12:30 12/22/21 13:47 100 Nasal Cannula 2 12/22/21 06:08 12/22/21 12:00 12/22/21 11:30 12/22/21 11:00 12/22/21 10:30 12/22/21 10:00 12/22/21 09:30 12/22/21 09:16 12/22/21 09:08 12/22/21 08:00 Nasal Cannula 2 12/22/21 07:14 97 BiPAP 12/22/21 04:25 12/22/21 03:40 97 30 PG Care Time/CCT Total # of Minutes Spent Total Time Spent: 80 Total Time Spent with Patient: Total time spent is greater than 50% in coordination of care (as documented) at patient's floor/unit and/or counseling patient: Coding Level of Care Code 36317 Subseq Hosp Care Lvl 3 Diagnoses Goals of care, counseling/discussion Z71.89 Volume overload E87.70 Gram-positive cocci bacteremia R78.81 Dysphagia R13.10 DM type 2 (diabetes mellitus, type 2) E11.9 Hypothyroidism E03.9 Hypothyroidism type: unspecified Hypertension I10 Hypertension type: essential hypertension Molina's thyroiditis E06.3 Depression F32.9 Depression Type: unspecified Background diabetic retinopathy associated with type 2 diabetes mellitus E11.3299 GERD (gastroesophageal reflux disease) K21.9 Anemia in chronic kidney disease N18.6; D63.1; Z99.2 Chronic kidney disease stage: on chronic dialysis (1) Depression Depression Type: unspecified Qualified Code(s): F32.9 - Major depressive disorder, single episode, unspecified (2) Hypothyroidism Hypothyroidism type: unspecified Qualified Code(s): E03.9 - Hypothyroidism, unspecified (3) Anemia in chronic kidney disease Chronic kidney disease stage: on chronic dialysis Qualified Code(s): N18.6 - End stage renal disease; D63.1 - Anemia in chronic kidney disease; Z99.2 - Dependence on renal dialysis (4) Hypertension Hypertension type: essential hypertension Qualified Code(s): I10 - Essential (primary) hypertension
[2021-12-22 15:44] LABS: A calco-baum cmplx NotReported Not Detected (NotDetected); Bact fragilis Not Reported Not Detected (NotDetected); C auris Not Reported Not Detected (NotDetected); Calbicans Not Reported Not Detected (NotDetected); Candida glabrata Not Reported Not Detected (NotDetected); Candida krusei Not Reported Not Detected (NotDetected); Cneoformans/gatti Not Reported Not Detected (NotDetected); Cparapsilosis Not Reported Not Detected (NotDetected); Ctropicalis Not Reported Not Detected (NotDetected); E cloacae compx Not Reported Not Detected (NotDetected); Efaecalis Not Reported Not Detected (NotDetected); Efaecium Not Reported Not Detected (NotDetected); Enterobacterales Not Reported Not Detected (NotDetected); Escherichia coli Not Reported Not Detected (NotDetected); H influenzae Not Reported Not Detected (NotDetected); K aerogenes Not Reported Not Detected (NotDetected); Koxytoca Not Reported Not Detected (NotDetected); Kpneumoniae grp Not Reported Not Detected (NotDetected); Lmonocyt Not Reported Not Detected (NotDetected); N meningitidis Not Reported Not Detected (NotDetected); P aeruginosa Not Reported Not Detected (NotDetected); Proteus spp Not Reported Not Detected (NotDetected); Salmonella spp Not Reported Not Detected (NotDetected); Smarcescens Not Reported Not Detected (NotDetected); Staph lugdunensis Not Reported Not Detected (NotDetected); Staph spp. Not Reported DETECTED (NotDetected); Staphaureus Not Reported Not Detected (NotDetected); Staphepi Not Reported DETECTED (NotDetected); Staphylococcus spp. DETECTED (NotDetected); Stenmaltophilia Not Reported Not Detected (NotDetected); Strep agal(GrpB) Not Reported Not Detected (NotDetected); Strep pneum Not Reported Not Detected (NotDetected); Strep pyog (GrpA) Not Reported Not Detected (NotDetected); Strep spp Not Reported Not Detected (NotDetected); mecAC Resistant Gene Not Detected (NotDetected)
[2021-12-22 15:50] LABS: Staphylococcus epidermidis DETECTED (NotDetected)
--- NOTE | 2021-12-22 16:01 | Electrocardiogram Report ---
Test Reason : Blood Pressure : / mmHG Vent. Rate : 069 BPM Atrial Rate : 069 BPM P-R Int : 284 ms QRS Dur : 090 ms QT Int : 422 ms P-R-T Axes : 046 235 052 degrees QTc Int : 452 ms Poor data quality, interpretation may be adversely affected Sinus rhythm with 1st degree A-V block Low voltage QRS Possible Anterolateral infarct (cited on or before 04-AUG-2021) Abnormal ECG When compared with ECG of 04-AUG-2021 16:37, No significant change was found Confirmed by Veto Pisano ([id number]) on 12/22/2021 4:00:55 PM Referred By: REFERRED SELF Confirmed By:Veto Pisano
[2021-12-23] MEDS: LEVOTHYROXINE SODIUM 125 MCG TABLET PO SCH (06:35)
[2021-12-23 08:33] LABS: BUN Creatinine Ratio 7.2 (10-20); Calcium 9.1 mg/dl (8.5-10.1); Creatinine Clr Calc Pharmacy 14.6 ml/min; Est GFR (African American) 8.9 ml/min; Est GFR (Non-African American) 7.7 ml/min; Potassium 4.2 mmol/L (3.5-5.1)
[2021-12-23] MEDS: INSULIN ASPART PER UNIT SC SCH ×3 (08:47→17:38)
[2021-12-23] MEDS: ASPIRIN 81 MG ECTAB PO SCH (09:23)
[2021-12-23] MEDS: carvediloL 12.5 MG TAB PO SCH (09:23)
[2021-12-23] MEDS: FUROSEMIDE 80 MG TAB PO SCH ×2 (09:23→17:57)
[2021-12-23] MEDS: busPIRone 15 MG TAB PO SCH (09:23)
[2021-12-23] MEDS: SEVELAMER HCL 800 MG TABLET PO SCH ×3 (09:23→17:57)
[2021-12-23] MEDS: ESCITALOPRAM OXALATE 20 MG TAB PO SCH (09:24)
[2021-12-23] MEDS: PANTOprazole 40 MG TAB PO SCH (09:24)
[2021-12-23] MEDS: LOSARTAN POTASSIUM 50 MG TAB PO SCH (09:24)
[2021-12-23] MEDS: INSULIN DETEMIR FLEXPEN/FLEX TOUCH 100 UNITS/ML 3ML SC SCH (10:19)
--- NOTE | 2021-12-23 10:20 | Nephrology Progress Note ---
Date of Service December 23, 2021 Assessment & Plan (1) ESRD (end stage renal disease) on dialysis: (2) Secondary hyperparathyroidism of renal origin: (3) Anemia in chronic kidney disease: (4) Morbid obesity with BMI of 40.0-44.9, adult: (5) Missed dialysis: (6) Volume overload: Plan End-stage kidney disease on hemodialysis TTS, admitted to the hospital with missed dialysis, volume overload and respiratory failure. Had emergency dialysis yesterday for more than 10 kg weight gain, missed dialysis, respiratory distress and hyperkalemia, potassium was 6.5. Had oocj-sh-sufw dialysis for 2 days had total 7 L UF, currently still above his dry weight but respiratory status, blood pressure volume status acceptable and seems otherwise comfortable. His seems intermittently confused although occasionally he would say he does not want dialysis then again his asking about his dialysis days. Does not look like there is a firm decision about stopping dialysis. -- OK to be discharged with plan for outpt HD TTS -- dose medications for GFR less than 10 -- continue phosphate binder with meal, Continue Nephrocaps -- MARILYN 78732 units x 1 dose given with HD on 12/21/21 -- left arm nephrology precaution, fluid restriction < 1.5 L/d Will follow Admission and Anticipated Discharge Date Admission Date: December 21, 2021 Subjective Bill was seen and examined this morning. Comfortable, blood pressure stable, no SOB. However, he seems to be intermittently confused, does not want to have dialysis anymore and then again says " I missed dialysis today". Reminded him that he is due for dialysis tomorrow. Review of Systems Review of Systems: Detail ROS was done and pertinent positives and negatives were mentioned in HPI. Physical Exam Constitutional: WD/WN, vitals as above + obese; no acute distress Eyes: + anicteric sclerae Respiratory: normal respiratory effort Auscultation: + diminished lung sounds; no wheezes Cardiovascular: Rate/Rhythm: regular rate and regular rhythm Heart Sounds: normal S1 and normal S2 Extremities: + AV fistula (left BC AVF with thrill and bruit.); no edema Musculoskeletal: Extremities: extremities normal to inspection Skin: no rashes Neurologic: + confused; no focal motor deficits Psychiatric: Orientation: alert and oriented x 3 Affect: euthymic affect Results & Data ([facility]) Vital Signs (Past 12 Hours) Vital Signs Temp Pulse Pulse Resp BP Pulse Ox O2 Del Method 12/23/21 09:00 36.5 C 56 L 18 138/80 100 Nasal Cannula 12/23/21 03:41 36.6 C 65 18 133/65 98 BiPAP 12/23/21 02:25 61 20 98 12/22/21 23:16 60 19 99 12/22/21 23:59 59 L 12/22/21 23:14 36.7 C 56 L 17 145/63 H 100 BiPAP O2 Flow Rate FiO2 12/23/21 09:00 2 12/23/21 03:41 12/23/21 02:25 30 12/22/21 23:16 30 12/22/21 23:59 12/22/21 23:14 PG Care Time/CCT Total # of Minutes Spent Total Time Spent with Patient: Total time spent is greater than 50% in coordination of care (as documented) at patient's floor/unit and/or counseling patient: Coding Level of Care Code 19424 Subseq Hosp Care Lvl 3 Diagnoses ESRD (end stage renal disease) on dialysis N18.6; Z99.2 Secondary hyperparathyroidism of renal origin N25.81 Anemia in chronic kidney disease N18.6; D63.1; Z99.2 Chronic kidney disease stage: on chronic dialysis Morbid obesity with BMI of 40.0-44.9, adult E66.01; Z68.41 Missed dialysis Volume overload E87.70 (1) Anemia in chronic kidney disease Chronic kidney disease stage: on chronic dialysis Qualified Code(s): N18.6 - End stage renal disease; D63.1 - Anemia in chronic kidney disease; Z99.2 - Dependence on renal dialysis
--- NOTE | 2021-12-23 14:51 | Discharge Summary ---
Date of Service December 23, 2021 Admission HPI Per Admitting Provider Maxx Patiño is a 66-year-old male with a past medical history of ESRD on dialysis, complex sleep apnea, hypothyroidism, hypertension, Molina's, type 2 diabetes with nephropathy, tobacco abuse, GERD, morbid obesity, secondary hyperparathyroidism, and anemia who presented to the emergency department for shortness of breath. Typically has dialysis //. Missed dialysis on Tuesday and was with progressively worsening shortness of breath, caregiver found him in respiratory distress and was placed on BiPAP. Patient was seen urgently by dialysis, and was taken to emergency dialysis with plan for 4-hour treatment. Estimated dry weight 131.2 kg, 147.8 kG by bed weight on admission. Patient is seen in dialysis, somnolent but arousable. Denies chest pain/chest pressure endorses fatigue. Seen on later reevaluation, continues to be somnolent but improving with 1.5 L removed. Subjective limited by somnolence/BiPAP. No respiratory distress at time of reevaluation Medical History: Reviewed Medications: Reviewed Surgical History: Reviewed Allergies: Reviewed Social History: Reviewed Code Status: Full Principal Diagnosis Volume overload, Noncompliance with hemodialysis, Need for emergent dialysis Discharge Data Allergies Allergy/AdvReac Type Severity Reaction Status Date / Time lactose AdvReac Intermediate Gastrointestinal Verified 12/21/21 16:37 Upset Consultations 12/21/21 16:11 Consult Nephrology Stat 12/21/21 18:32 ED Decision to Admit Stat 12/22/21 14:54 Consult Palliative Care Routine Hospital Course (1) Goals of care, counseling/discussion: Patient reported not wanting to continue dialysis. Unclear if hospice in place at home to manage the patient. Clearly patient came to hospital for dialysis however and the patient is unable to explain the reasoning why he came to hospital for dialysis and now is refusing having it and doesn't appear to understand that he accepted dialysis today. He therefore does not appear to have capacity to make his medical decisions at this time. He appears to understand he will if he does not receive dialysis. Patient was also a full code when he was admitted and has been full code for the majority of his hospital stays with a few exceptions. Discussed with his son who reports him not wanting dialysis is new but advised talking to his sister. Sister called in and reports he is more confused than usual which occasionally happens for a few days after he misses dialysis, no answer when I tried to call her. Consult palliative care for goals of care discussion with family as patient appears to be quite adamant that he does not want to continue dialysis when he goes home. (2) Volume overload: Maxx is a six 6-year-old male dialysis dependent who presents with acute on chronic respiratory failure due to missing dialysis. History is limited at bedside due to BiPAP and somnolence, but is gradually improving on reassessment with dialysis. Acute hypoxic respiratory failure 2/2 ESRD, missed dialysis Acute pulmonary edema secondary to missed dialysis obvious fluid overload on exam, with hyper kalemia Dialysis dependent, missed dialysis on Tuesday Taken emergently to dialysis from ER Continue amlodipine Continue aspirin Continue carvedilol Continue Lasix Continue losartan Continue BiPAP, patient clinically improving on reassessment and anticipate after another liter of fluid will be able to remove Patient still hypervolemic but ok for discharge per Dr France. Patient however demonstrating a wish to stop dialysis all together therefore will keep him in hospital overnight for this discussion with his family tomorrow. I was unable to contact his sister today. He does note appear to have capacity to leave against medical advice given concerns he is more confused than usual. (3) Gram-positive cocci bacteremia: Suspected Staph epidermidis on 04/05 blood cultures Will repeat culture No need for antibiotics currently unless repeat cultures positive or both initial cultures positive. 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 [id number], glucose checks AC/at bedtime (6) Hypothyroidism: Continue Synthroid 25 mcg every morning TSH pending (7) Hypertension: Continue his usual home hair-hypertensives (8) Molina's thyroiditis: Continue levothyroxine (9) Depression: (10) Background diabetic retinopathy associated with type 2 diabetes mellitus: (11) GERD (gastroesophageal reflux disease): (12) Anemia in chronic kidney disease: Plan DVT prophylaxis: SCDs, heparin CODE STATUS: Full code Disposition: continue on PCU until disposition decided Diet: dialysis renal, low Na, T2DM Discharge Plan Discharge Items Patient Disposition: Hospice - Home Reason For Visit: AHRF, VOLUME OVERLOAD, EMERGENT DIALYSIS Discharge Diagnosis: VOlume overload, need for emergent dialysis Activity: Resume your previous activity Bathing: No limitations Non-emergency contact: Primary Care Provider Call non-emergency contact if: you have any medication questions and your symptoms worsen Follow-up/Referrals: Veto Gan, [Primary Care Provider] - (Follow up within 1-2 weeks) Diet: Carb Consistent or DM2 and Dialysis Renal Addtl Attending Provider Instructions: It is very important for you to continue with your dialysis treatments as scheduled as an outpatient until you can get into a fpc as we discussed. If you do not, you would likely pass away within the next 1-2 weeks. If you truly do not want to continue on dialysis after you return home, then you should let your home hospice agency know so they can be prepared to care for you at the end of your life. Pending Studies at Discharge: No Stand-Alone Forms: My [facility] [employer], Smoking Cessation Medications and DC Order Prescriptions: Continued (DME) HYDRAULIC KHADAR LIFT See Rx Instructions .Route .MEDSUPPLY Qty: 1 0RF Rx Instructions: Dx:E11.40; R29.6; R26.2 (DME) FreeStyle Virgil 14 Day [place] Misc See Rx Instructions .ROUTE .MEDSUPPLY Qty: 1 5RF Rx Instructions: Use to monitor blood sugars daily furosemide [Lasix] 80 mg tablet 80 mg PO BID Qty: 180 3RF amlodipine 10 mg tablet 10 mg PO HS Qty: 90 3RF levothyroxine 125 mcg tablet 125 mcg PO QAM Qty: 90 3RF losartan 50 mg tablet 50 mg PO QAM Qty: 90 3RF gabapentin 100 mg capsule 300 mg PO HS Qty: 270 3RF (DME) FreeStyle Virgil 14 Day Sensor Kit See Dose Instructions .ROUTE .MEDSUPPLY Qty: 6 3RF Dose Instruction: As directed Rx Instructions: change sensor every 14 days omeprazole 20 mg capsule,delayed release(DR/EC) 20 mg PO QAM Qty: 180 3RF (DME) pen needle, diabetic [BD Ultra-Fine Micro Pen Needle] 32 gauge x 1/4" needle See Dose Instructions .ROUTE .MEDSUPPLY Qty: 100 5RF Dose Instruction: As directed Rx Instructions: Use to inject Lantus once daily carvedilol 12.5 mg tablet 12.5 mg PO BID Qty: 180 3RF Rx Instructions: must administer with a meal/food Levemir FlexTouch U-100 Insuln 100 unit/mL (3 mL) insulin pen 15 unit subcut DAILY 90 Days Qty: 15 2RF nitroglycerin 0.4 mg tablet, sublingual 0.4 mg sublingual DIRECTED PRN (Reason: Chest Pain) Rx Instructions: NEEDED FOR CHEST PAIN : ONE TABLET UNDER THE TONGUE EVERY FIVE MINUTES UP TO 3 DOSES. simvastatin 20 mg tablet 20 mg PO HS buspirone 15 mg tablet 15 mg PO AMHS escitalopram oxalate 20 mg tablet 20 mg PO QAM aspirin 81 mg Tablet,Delayed Release (Dr/Ec) 81 mg PO DAILY sevelamer carbonate 800 mg tablet 2,400 mg PO TIDM Discharge Orders: Discharge Order (Routine); Ordered 12/23/21 Ordered By: Ann Leone Admission Data Admit Date/Time: 12/21/21 18:31 Attending Provider: Ann Leone Admit Provider: Demetrius Saldana Primary Care Provider: Veto Gan Other Providers: Carlie France ; Demetrius Saldana ; Katya Heredia ; [place] Other Interventions: Discharge Summary Assessment (RN) Last Done: 12/23/21 19:03 Coding Diagnoses Goals of care, counseling/discussion Z71.89 Volume overload E87.70 Gram-positive cocci bacteremia R78.81 Dysphagia R13.10 DM type 2 (diabetes mellitus, type 2) E11.9 Hypothyroidism E03.9 Hypothyroidism type: unspecified Hypertension I10 Hypertension type: essential hypertension Molina's thyroiditis E06.3 Depression F32.9 Depression Type: unspecified Background diabetic retinopathy associated with type 2 diabetes mellitus E11.3299 GERD (gastroesophageal reflux disease) K21.9 Anemia in chronic kidney disease N18.6; D63.1; Z99.2 Chronic kidney disease stage: on chronic dialysis
== END 2021-12-23 20:03 | disposition hospice, home (50) | DRG 189 ==
LOC: ED 15:38 → 2S 17:30 → SUATTDRO 18:31 → 2S 18:31
DX: E87.79 Other fluid overload; Z91.15 Patient's noncompliance with renal dialysis; Z51.5 Encounter for palliative care; Z66 Do not resuscitate; E03.9 Hypothyroidism, unspecified; J96.21 Acute and chronic respiratory failure with hypoxia; E06.3 Autoimmune thyroiditis; E87.5 Hyperkalemia; R78.81 Bacteremia; E11.22 Type 2 diabetes mellitus with diabetic chronic kidney disease; I12.0 Hypertensive chronic kidney disease with stage 5 chronic kidney disease or end stage renal disease; D63.1 Anemia in chronic kidney disease; Z74.01 Bed confinement status; N17.9 Acute kidney failure, unspecified; E11.319 Type 2 diabetes mellitus with unspecified diabetic retinopathy without macular edema; R13.10 Dysphagia, unspecified; N25.81 Secondary hyperparathyroidism of renal origin; J81.0 Acute pulmonary edema; N18.6 End stage renal disease; E66.01 Morbid (severe) obesity due to excess calories; Z68.41 Body mass index [BMI] 40.0-44.9, adult; E11.40 Type 2 diabetes mellitus with diabetic neuropathy, unspecified

== ENCOUNTER 2022-01-04 15:41 | Inpatient (IN) ==
[2022-01-04] MEDS ORDERED: VANCOMYCIN CONSULT ACTIVE PRN (16:13)
[2022-01-04] MEDS ORDERED: CEFEPIME 2,000 MG/20 ML VIAL IV STA (16:13)
[2022-01-04] MEDS ORDERED: VANCOMYCIN HCL 2,750 MG in SODIUM CHLORIDE 0.9% 500 ML IV ONE (16:13)
--- NOTE | 2022-01-04 16:21 | Emergency Department Note ---
History of Present Illness General Chief complaint: Respiratory Problems Time Seen by Provider: 01/04/22 15:58 History of Present Illness Maximum Pain Intensity: 8 66-year-old male presents to the ED via ambulance. Per EMS, the patient had a pulse ox of 60% on room air. As far as they know, he does not use oxygen at home. When I saw the patient, no family was present. The patient does have a history of dialysis dependency. Normally goes Tuesday, and Tuesday. He missed his Tuesday appointment for dialysis because he went to a picnic. He also only got 3 hours of dialysis out of his 4 hours on . The patient seems somewhat confused. Is a poor historian. Does not report any specific complaints. Uncertain who called ambulance. He does have a history of fluid overload in the past as well as congestive heart failure. He is also a type II diabetic with hypertension. Smoker. Morbid obesity. The patient does state that he has oxygen at home. When I asked him how much he uses, he says none. I asked him why he has the oxygen at home, he states because the doctor said he should use it. Home Medications Medication Instructions Recorded Confirmed Type nitroglycerin 0.4 mg sublingual 0.4 mg sublingual DIRECTED PRN 07/11/20 12/21/21 History tablet Chest Pain HYDRAULIC KHADAR LIFT #1 ea 01/26/21 11/11/21 Rx FreeStyle Virgil 14 Day Leon #1 ea 03/08/21 11/11/21 Rx (flash glucose scanning reader) sevelamer carbonate 800 mg tablet 2,400 mg PO TIDM 04/04/21 12/21/21 History simvastatin 20 mg tablet 20 mg PO HS 05/12/21 12/21/21 History furosemide 80 mg tablet (Lasix) 80 mg PO BID #180 tabs 06/08/21 12/21/21 Rx amlodipine 10 mg tablet 10 mg PO HS #90 tabs 07/02/21 12/21/21 Rx levothyroxine 125 mcg tablet 125 mcg PO QAM #90 tabs 07/02/21 12/21/21 Rx losartan 50 mg tablet 50 mg PO QAM #90 tabs 07/02/21 12/21/21 Rx gabapentin 100 mg capsule 300 mg PO HS Pain #270 caps 07/07/21 12/21/21 Rx FreeStyle Virgil 14 Day Sensor #6 ea 08/10/21 11/11/21 Rx (flash glucose sensor) insulin detemir U-100 100 unit/mL 15 unit (0.15 mL) subcut DAILY 90 09/30/21 12/21/21 Rx (3 mL) subcutaneous pen (Levemir days #15 mL FlexTouch U-100 Insulin) omeprazole 20 mg capsule,delayed 20 mg PO QAM #180 caps 09/30/21 12/21/21 Rx release pen needle, diabetic 32 gauge x #100 ea 10/02/21 11/11/21 Rx 1/4" (BD Ultra-Fine Micro Pen Needle) carvedilol 12.5 mg tablet 12.5 mg PO BID #180 tabs 10/22/21 12/21/21 Rx aspirin 81 mg tablet,delayed 81 mg PO DAILY 12/21/21 12/21/21 History release buspirone 15 mg tablet 15 mg PO AMHS 12/21/21 12/21/21 History escitalopram oxalate 20 mg tablet 20 mg PO QAM 12/21/21 12/21/21 History Allergies Allergy/AdvReac Type Severity Reaction Status Date / Time lactose AdvReac Intermediate Gastrointestinal Verified 12/21/21 16:37 Upset Past Med/Surg History Medical History Anemia in chronic kidney disease Anxiety Bedbound Depression DM type 2 (diabetes mellitus, type 2) Dyslipidemia Dysphagia ESRD (end stage renal disease) on dialysis started in 2018 - , [facility] in [place]. (per sister, education general manager recommends 5xwk but pt refuses) Fistula LUE GERD (gastroesophageal reflux disease) Hypothyroidism Limb alert care status LUE Missed dialysis Morbid obesity with BMI of 40.0-44.9, adult Multiple system atrophy Osteoarthritis Personal history of diabetic foot ulcer Secondary hyperparathyroidism of renal origin Tremor Unable to ambulate khadar lift Volume overload Surgical History Amputation of one or more toes 3-- Left Foot 2nd and 3rd Toe Amputation - Demetrius Vela MD, [facility] History of bilateral cataract extraction History of cardiac cath 01/2018 "about 2-3 weeks"; no stents placed @ [facility] by Dr. Coronel History of carpal tunnel release R wrist History of colonoscopy History of esophagogastroduodenoscopy (EGD) History of repair of anterior cruciate ligament of left knee History of repair of anterior cruciate ligament of right knee History of tonsillectomy History of tooth extraction wisdom teeth Family History Mother Family history of diabetes mellitus Grandmother Family history of diabetes mellitus maternal Other Colorectal cancer Inflammatory bowel disease Melanoma Social History Smoking Status: Current every day smoker Tobacco Type: Cigarettes Age Started Using Tobacco: 15; Cigarettes Per Day: 1 ppd; Second Hand Exposure: No; Hx Alcohol Use: No Hx Substance Use: No Preferred Language: Yoruba Communication Ability: Effective Taker Off Required: No Beliefs That Will Affect Care: None marital status: Single Current Living Situation: Family Current Living Situation Comment: pt lives with son current occupational status: retired How many Children do You have: 2 Feels Safe at Home: Yes Seatbelt Use: other (PT. in wheelchair.) Assistive Devices: CPAP, Hospital Bed, Stair Lift and Wheelchair Review of Systems Unobtainable due to cognitive status Physical Exam Vital Signs Vital Signs - 24 hr 01/04/22 15:48 01/04/22 16:00 01/04/22 16:00 Temperature 37.9 C H Temperature Source Oral Pulse Rate 66 Pulse Rate [Apical] Respiratory Rate 24 Respiratory Effort / Characteristics Labored Short of Breath Respiratory Depth Normal Respiratory Pattern Regular Blood Pressure 146/90 H Blood Pressure [Right Arm] Blood Pressure Mean 108 Blood Pressure Mean [Right Arm] Blood Pressure Position [Right Arm] Pulse Oximetry 99 Oxygen Delivery Method Nebulizer Nasal Cannula Oxygen Flow Rate 4 Sepsis Recent Fever Within 48 Hours Yes Sepsis New/Unexplained Change in Mental Status Yes Sepsis Action Taken by Nursing Physician Notified 01/04/22 16:01 01/04/22 16:43 01/04/22 16:43 Temperature Temperature Source Pulse Rate 67 Pulse Rate [Apical] 66 67 Respiratory Rate 24 24 24 Respiratory Effort / Characteristics Labored Short of Breath Labored Short of Breath Respiratory Depth Respiratory Pattern Blood Pressure Blood Pressure [Right Arm] 142/88 H 149/76 H Blood Pressure Mean Blood Pressure Mean [Right Arm] 106 100 Blood Pressure Position [Right Arm] Pulse Oximetry 95 95 95 Oxygen Delivery Method Nasal Cannula Nasal Cannula Nasal Cannula Oxygen Flow Rate 4 4 4 Sepsis Recent Fever Within 48 Hours Sepsis New/Unexplained Change in Mental Status Sepsis Action Taken by Nursing 01/04/22 17:20 01/04/22 18:15 01/04/22 19:18 Temperature Temperature Source Pulse Rate Pulse Rate [Apical] 65 64 64 Respiratory Rate 24 20 17 Respiratory Effort / Characteristics Non-Labored Spontaneous Respiratory Depth Normal Normal Respiratory Pattern Regular Regular Blood Pressure Blood Pressure [Right Arm] 150/77 H 170/69 H 147/70 H Blood Pressure Mean Blood Pressure Mean [Right Arm] 101 102 95 Blood Pressure Position [Right Arm] Lying Pulse Oximetry 95 95 93 Oxygen Delivery Method Nasal Cannula Nasal Cannula Nasal Cannula Oxygen Flow Rate 4 4 4 Sepsis Recent Fever Within 48 Hours Sepsis New/Unexplained Change in Mental Status Sepsis Action Taken by Nursing CONSTITUTIONAL/VITAL SIGNS: Reviewed / noted above. GENERAL: Non-toxic in appearance. INTEGUMENTARY: Warm, dry, and [place]. HEAD: Normocephalic. EYES: without scleral icterus or trauma. ENT/OROPHARYNX: clear and moist. LYMPHADENOPATHY/NECK: Is supple without lymphadenopathy or meningismus. RESPIRATORY: Diminished to auscultation bilaterally. Minimal increased work of breathing. CARDIOVASCULAR: Regular rate and rhythm. GI/ABDOMEN: Soft and nontender. No organomegaly or pulsatile mass. EXTREMITIES: Warm and well perfused. NEUROLOGICAL: Intact without focal deficits. Patient does seem to be confused at times when answering questions. PSYCHIATRIC: normal affect. MUSCULOSKELETAL: Normally developed with poor lower extremity muscle tone. TRIAGE NURSING DOCUMENTATION REVIEWED. Course Administered Medications Sodium Zirconium Cyclosilicate (Sodium Zirconium Cyclosilicate 10 Gm Packet) 10 gm PO DAILY KATELYNN Stop: 02/03/22 17:29 Last Admin: 01/04/22 18:22 Dose: 10 gm Documented By: MANGO Discontinued Medications Cefepime HCl (Maxipime) 2,000 mg in 20 mls @ 5 mls/min IV NOW STA; Protocol Stop: 01/04/22 16:16 Last Admin: 01/04/22 17:09 Dose: 5 mls/min Documented By: MANGO Vancomycin HCl 2,750 mg/ (Sodium Chloride) 555 mls @ 200 mls/hr IV NOW ONE Stop: 01/04/22 18:59 Last Admin: 01/04/22 17:09 Dose: 200 mls/hr Documented By: MANGO Medical Decision Making Differential Diagnosis Differential includes acute coronary syndrome, myocardial infarction, CVA, TIA, anemia, infection, pneumonia, UTI, pyelonephritis, poor nutrition, dehydration, electrolyte disturbance,hypoglycemia. Medical Records Attestation: I reviewed the patient's medical records. Home Medications Current Medication List: was personally reviewed by me Laboratory Data Attestation: I reviewed the patient's lab results. Result diagrams: 01/04/22 16:51 01/04/22 16:51 Lab Results 01/04/22 01/04/22 01/04/22 Range/Units 16:51 16:51 16:51 WBC 14.81 H (4.8-10.8) K/ul RBC 2.67 L (4.63-6.08) M/uL Hgb 8.9 L (14.0-18.0) g/dl POC Hgb (14.0-18.0) g/dl Hct 26.9 L (40.1-51.0) % POC Hct (42-52) % MCV 100.7 H (80.0-100.0) fL MCH 33.3 (25.0-34.0) pg MCHC 33.1 (32.0-36.0) g/dL RDW Std Deviation 46.0 (36.4-46.3) fL RDW Coeff of Jorge A 12.5 (11.5-14.5) % Plt Count 190 (130-400) K/uL MPV 10.5 (9.4-12.4) fL Immature Gran % (Auto) 0.5 % Neut % (Auto) 88.8 % Lymph % (Auto) 6.4 % [place] % (Auto) 3.3 % Eos % (Auto) 0.6 % Baso % (Auto) 0.4 % Neut # (Auto) 13.14 H (1.4-6.5) K/uL Lymph # (Auto) 0.95 L (1.2-3.4) K/uL [place] # (Auto) 0.49 (0.24-0.82) K/uL Eos # (Auto) 0.09 (0-0.50) K/uL Baso # (Auto) 0.06 (0-0.2) K/uL Immature Gran # (Auto) 0.08 H (0.00-0.02) K/uL PT (9.0-12.0) Seconds INR (0.9-1.1) APTT (21.0-31.0) Seconds PTT Ratio VBG pH (7.36-7.41) VBG pCO2 (38-50) mmHg VBG pO2 mmHg VBG HCO3 mmol/L VBG O2 Saturation % VBG Base Excess mEq/L POC Sodium (135-144) mmol/L POC Potassium (3.3-5.0) mmol/L POC Chloride (101-112) mmol/L POC Total CO2 (24-31) mmol/L POC Anion Gap (16-25) mmol/L POC BUN (7-18) mg/dl POC Creatinine (0.6-1.3) mg/dl POC Glucose (other) (70-99) mg/dl Lactate 1.0 (0.4-2.0) mmol/L POC Ioniz Calcium Alessandro (1.12-1.32) mmol/l Procalcitonin 0.15 (0-0.5) ng/ml SARS-CoV-2, RNA, NAAT (NEGATIVE) 01/04/22 01/04/22 01/04/22 Range/Units 16:51 16:51 16:51 WBC (4.8-10.8) K/ul RBC (4.63-6.08) M/uL Hgb (14.0-18.0) g/dl POC Hgb 9.2 L (14.0-18.0) g/dl Hct (40.1-51.0) % POC Hct 27 L (42-52) % MCV (80.0-100.0) fL MCH (25.0-34.0) pg MCHC (32.0-36.0) g/dL RDW Std Deviation (36.4-46.3) fL RDW Coeff of Jorge A (11.5-14.5) % Plt Count (130-400) K/uL MPV (9.4-12.4) fL Immature Gran % (Auto) % Neut % (Auto) % Lymph % (Auto) % [place] % (Auto) % Eos % (Auto) % Baso % (Auto) % Neut # (Auto) (1.4-6.5) K/uL Lymph # (Auto) (1.2-3.4) K/uL [place] # (Auto) (0.24-0.82) K/uL Eos # (Auto) (0-0.50) K/uL Baso # (Auto) (0-0.2) K/uL Immature Gran # (Auto) (0.00-0.02) K/uL PT 14.0 H (9.0-12.0) Seconds INR 1.3 H (0.9-1.1) APTT 23.3 (21.0-31.0) Seconds PTT Ratio 0.8 VBG pH 7.39 (7.36-7.41) VBG pCO2 50 (38-50) mmHg VBG pO2 40 mmHg VBG HCO3 30 mmol/L VBG O2 Saturation 70.2 % VBG Base Excess 4.2 mEq/L POC Sodium 134 L (135-144) mmol/L POC Potassium 6.0 H (3.3-5.0) mmol/L POC Chloride 97 L (101-112) mmol/L POC Total CO2 26 (24-31) mmol/L POC Anion Gap 18.0 (16-25) mmol/L POC BUN 74 H (7-18) mg/dl POC Creatinine 15.1 H* (0.6-1.3) mg/dl POC Glucose (other) 139 H (70-99) mg/dl Lactate (0.4-2.0) mmol/L POC Ioniz Calcium Alessandro 0.97 L (1.12-1.32) mmol/l Procalcitonin (0-0.5) ng/ml SARS-CoV-2, RNA, NAAT (NEGATIVE) 01/04/22 Range/Units 17:23 WBC (4.8-10.8) K/ul RBC (4.63-6.08) M/uL Hgb (14.0-18.0) g/dl POC Hgb (14.0-18.0) g/dl Hct (40.1-51.0) % POC Hct (42-52) % MCV (80.0-100.0) fL MCH (25.0-34.0) pg MCHC (32.0-36.0) g/dL RDW Std Deviation (36.4-46.3) fL RDW Coeff of Jorge A (11.5-14.5) % Plt Count (130-400) K/uL MPV (9.4-12.4) fL Immature Gran % (Auto) % Neut % (Auto) % Lymph % (Auto) % [place] % (Auto) % Eos % (Auto) % Baso % (Auto) % Neut # (Auto) (1.4-6.5) K/uL Lymph # (Auto) (1.2-3.4) K/uL [place] # (Auto) (0.24-0.82) K/uL Eos # (Auto) (0-0.50) K/uL Baso # (Auto) (0-0.2) K/uL Immature Gran # (Auto) (0.00-0.02) K/uL PT (9.0-12.0) Seconds INR (0.9-1.1) APTT (21.0-31.0) Seconds PTT Ratio VBG pH (7.36-7.41) VBG pCO2 (38-50) mmHg VBG pO2 mmHg VBG HCO3 mmol/L VBG O2 Saturation % VBG Base Excess mEq/L POC Sodium (135-144) mmol/L POC Potassium (3.3-5.0) mmol/L POC Chloride (101-112) mmol/L POC Total CO2 (24-31) mmol/L POC Anion Gap (16-25) mmol/L POC BUN (7-18) mg/dl POC Creatinine (0.6-1.3) mg/dl POC Glucose (other) (70-99) mg/dl Lactate (0.4-2.0) mmol/L POC Ioniz Calcium Alessandro (1.12-1.32) mmol/l Procalcitonin (0-0.5) ng/ml SARS-CoV-2, RNA, NAAT NEGATIVE (NEGATIVE) Imaging Data Radiologist's Impression: Chest X-Ray 01/04/22 16:11 XR chest 1V portable HISTORY: 66 years-old Male Sepsis acute sepsis COMPARISON: Chest radiograph 12/21/2021 TECHNIQUE: Portable AP view the chest FINDINGS: Cardiac silhouette is enlarged. Pulmonary vascular congestion with pulmonary vascular congestion and interstitial coarsening. Pulmonary arterial hypertension. Chronic blunting of the lateral left costophrenic angle secondary to a prominent epicardial fat pad. Possible trace pleural effusions with mild bibasilar opacities. Degenerative changes of the shoulders and spine. IMPRESSION: 1. Cardiomegaly with pulmonary vascular congestion and interstitial coarsening suggestive of pulmonary edema. 2. Chronic left basilar opacity with probable trace pleural effusions. 3. Mild bibasilar opacities suggestive of atelectasis versus pneumonitis. ACT 112: Negative or not required by law. The above report was generated using voice recognition software. It may contain grammatical, syntax or spelling errors. Electronically signed by: Diony Baxter M.D. 01/04/2022 4:34 PM ECG Data Attestation: I personally reviewed and interpreted this ECG as follows: Additional Comments: Twelve-lead EKG: Poor quality due to patient's tremors. Sinus rhythm 99 first- degree AV block. Slightly prolonged QTC. No PVCs. MDM Narrative 66-year-old male dialysis patient who missed dialysis on Tuesday presents today, Tuesday for evaluation of hypoxia and some confusion. Vital signs reveal a temperature of 37.9. 95% on 4 L. Blood pressure 142/88. Heart rate is 66. Respiratory rate is 24. Diminished breath sounds on my exam bilaterally. Patient is able to answer some questions but he seems little confused at times with answers. Typically gets around in a motorized wheelchair. A twelve-lead EKG shows a sinus rhythm. Chest x-ray shows findings concerning for possible bide basilar pneumonia as well as some congestive heart failure. The patient's COVID test was negative. CBC and chemistry panel show some chronic anemia. The patient's potassium is elevated at 6. VBG was normal. The patient was given Lokelma 10 mg p.o. per the direction of Dr. Romano. He is going to dialyze the patient tomorrow. He was not given any fluids because of his missing dialysis and findings of pulmonary edema on his chest x-ray. His blood pressure is stabl e. He was given some IV empiric antibiotics. He will be seen by the hospitalist for further evaluation and care. Impression & Plan Bilateral pneumonia, Congestive heart failure, Dependence on renal dialysis, Acute hyperkalemia Discharge Plan Visit Data Chief Complaint: Respiratory Problems ED Provider: [facility] Blue Discharge Problem: Bilateral pneumonia, Congestive heart failure, Dependence on renal dialysis, Acute hyperkalemia Patient Disposition: Being Evaluated by Hospitalist Forms Stand Alone Forms: My [facility] Prescriptions Prescriptions: No Action (DME) HYDRAULIC KHADAR LIFT See Rx Instructions .Route .MEDSUPPLY Qty: 1 0RF Rx Instructions: Dx:E11.40; R29.6; R26.2 (DME) FreeStyle Virgil 14 Day Leon Misc See Rx Instructions .ROUTE .MEDSUPPLY Qty: 1 5RF Rx Instructions: Use to monitor blood sugars daily furosemide [Lasix] 80 mg tablet 80 mg PO BID Qty: 180 3RF amlodipine 10 mg tablet 10 mg PO HS Qty: 90 3RF levothyroxine 125 mcg tablet 125 mcg PO QAM Qty: 90 3RF losartan 50 mg tablet 50 mg PO QAM Qty: 90 3RF gabapentin 100 mg capsule 300 mg PO HS Qty: 270 3RF (DME) FreeStyle Virgil 14 Day Sensor Kit See Dose Instructions .ROUTE .MEDSUPPLY Qty: 6 3RF Dose Instruction: As directed Rx Instructions: change sensor every 14 days omeprazole 20 mg capsule,delayed release(DR/EC) 20 mg PO QAM Qty: 180 3RF (DME) pen needle, diabetic [BD Ultra-Fine Micro Pen Needle] 32 gauge x 1/4" needle See Dose Instructions .ROUTE .MEDSUPPLY Qty: 100 5RF Dose Instruction: As directed Rx Instructions: Use to inject Lantus once daily carvedilol 12.5 mg tablet 12.5 mg PO BID Qty: 180 3RF Rx Instructions: must administer with a meal/food Levemir FlexTouch U-100 Insuln 100 unit/mL (3 mL) insulin pen 15 unit subcut DAILY 90 Days Qty: 15 2RF nitroglycerin 0.4 mg tablet, sublingual 0.4 mg sublingual DIRECTED PRN (Reason: Chest Pain) Rx Instructions: NEEDED FOR CHEST PAIN : ONE TABLET UNDER THE TONGUE EVERY FIVE MINUTES UP TO 3 DOSES. simvastatin 20 mg tablet 20 mg PO HS buspirone 15 mg tablet 15 mg PO AMHS escitalopram oxalate 20 mg tablet 20 mg PO QAM aspirin 81 mg Tablet,Delayed Release (Dr/Ec) 81 mg PO DAILY sevelamer carbonate 800 mg tablet 2,400 mg PO TIDM Referrals Referrals: Veto Gan DO [Primary Care Provider] -
--- NOTE | 2022-01-04 16:35 | XRay Report ---
XR chest 1V portable HISTORY: 66 years-old Male Sepsis acute sepsis COMPARISON: Chest radiograph 12/21/2021 TECHNIQUE: Portable AP view the chest FINDINGS: Cardiac silhouette is enlarged. Pulmonary vascular congestion with pulmonary vascular congestion and interstitial coarsening. Pulmonary arterial hypertension. Chronic blunting of the lateral left costop hrenic angle secondary to a prominent epicardial fat pad. Possible trace pleural effusions with mild bibasilar opacities. Degenerative changes of the shoulders and spine. IMPRESSION: 1. Cardiomegaly with pulmonary vascular congestion and interstitial coarsening suggestive of pulmonar y edema. 2. Chronic left basilar opacity with probable trace pleural effusions. 3. Mild bibasilar opacities suggestive of atelectasis versus pneumonitis. ACT 112: Negative or not required by law. The above report was generated using voice recognition software. It may contain grammatical, syntax o r spelling errors. Electronically signed by: Diony Baxter M.D. 01/04/2022 4:34 PM
[2022-01-04 17:05] LABS: iSTAT Creatinine 15.1 mg/dl (0.6-1.3); iSTAT Hemoglobin 9.2 g/dl (14.0-18.0); iSTAT Ionized Calcium 0.97 mmol/l (1.12-1.32)
[2022-01-04 17:10] LABS: Basophils # (auto) 0.06 K/uL (0-0.2); Basophils % (auto) 0.4 %; Eosinophils # (auto) 0.09 K/uL (0-0.50); Eosinophils % (auto) 0.6 %; Hematocrit (blood only) 26.9 % (40.1-51.0); Hemoglobin 8.9 g/dl (14.0-18.0); Immature Granulocytes # (auto) 0.08 K/uL (0.00-0.02); Immature Granulocytes % (auto) 0.5 %; Lymphocytes # (auto) 0.95 K/uL (1.2-3.4); Lymphocytes % (auto) 6.4 %; Mean Corpuscular Hemoglobin 33.3 pg (25.0-34.0); Mean Corpuscular Hgb Conc 33.1 g/dL (32.0-36.0); Mean Corpuscular Volume 100.7 fL (80.0-100.0); Mean Platelet Volume 10.5 fL (9.4-12.4); Monocytes # (auto) 0.49 K/uL (0.24-0.82); Monocytes % (auto) 3.3 %; Neutrophils # (auto) 13.14 K/uL (1.4-6.5); Neutrophils % (auto) 88.8 %; Platelet Count 190 K/uL (130-400); RDW Coefficient of Variation 12.5 % (11.5-14.5); Red Blood Count 2.67 M/uL (4.63-6.08); White Blood Count 14.81 K/ul (4.8-10.8)
[2022-01-04 17:19] LABS: INR 1.3 (0.9-1.1); Partial Thromboplastin Ratio 0.8; Partial Thromboplastin Time 23.3 Seconds (21.0-31.0)
[2022-01-04 17:21] LABS: Base Excess VBG 4.2 mEq/L; HCO3 VBG 30 mmol/L; Oxygen Saturation VBG 70.2 %; PCO2 VBG 50 mmHg (38-50); PO2 VBG 40 mmHg; pH VBG 7.39 (7.36-7.41)
[2022-01-04] MEDS: SODIUM ZIRCONIUM CYCLOSILICATE 10 GM PACKET PO SCH (18:22)
[2022-01-04 19:43] LABS: Alanine Aminotransferase 7 U/L (7-52); Albumin Level 3.8 gm/dl (3.4-5.0); Alkaline Phosphatase 84 U/L (34-104); Anion Gap 15 (3-11); Aspartate Aminotransferase 6 U/L (13-39); BUN Creatinine Ratio 5.7 (10-20); Bilirubin Direct 0.2 mg/dl (0-0.2); Bilirubin,Total 0.6 mg/dl (0.2-1.0); Blood Urea Nitrogen 72 mg/dl (6-23); Calcium 9.3 mg/dl (8.5-10.1); Carbon Dioxide 27 mmol/L (21-32); Chloride 94 mmol/L (98-107); Est GFR (African American) 4.2 ml/min; Est GFR (Non-African American) 3.6 ml/min; Glucose 131 mg/dl (70-99(Fasting)); Magnesium 2.3 mg/dl (1.7-2.4); Sodium 136 mmol/L (136-145); Total Protein 7.4 gm/dl (6.0-8.3)
--- NOTE | 2022-01-04 19:56 | History & Physical Report ---
Date of Service January 04, 2022 Assessment & Plan (1) Acute and chronic respiratory failure with hypoxia: Plan: 66yo male with multiple medical comorbidities presenting from home with report of acute hypoxic respiratory failure and confusion. SpO2 in the 60's . He was placed on 15L NRB en route to [facility]. Saturations have been adequate - presently 94% on 4L. CXR as above with cardiomegaly with pulmonary vascular congestion and interstitial coarsening suggestive of pulmonary edema. Also with mild bibasilar opacities suggestive of atelectasis versus pneumonitis. Patient missed HD on 01/02/22 and did not receive a complete treatment before that either. Suspect acute hypoxic respiratory failure secondary to pulmonary vascular congestion and volume overload secondary to missed HD treatment. Patient is anuric. Presently saturating well on 4L NC with no acute distress. Suspect his confusion is in part secondary to uremia. BUN of 72. Labs otherwise with AGMA with Gap of 15, HCO3 of 27 K elevated at 6 - was given Sodium Zirconium Cyclosilicate He was given 2gm of Cefepime as well as loading dose of Vancomycin. -Admit to medical with telemetry -Maintain supplemental O2 with goal saturation of >94% -Nephrology consultation re: HD in AM -Repeat labs in AM (2) ESRD (end stage renal disease) on dialysis: Plan: Patient with ESRD on HD q T/R/Sat. Missed last HD treatment on 01/02 and had a partial treatment before that. Anuric. Hyperkalemia treated with dose of Sodium Zirconium Cyclosilicate. AG of 15 -Nephrology consultation appreciated. Will most likely have HD in AM -Continue Sevelamer carbonate 2400mg po TID with meals -Repeat labs in AM (3) Hypertension: Plan: Elevated blood pressure presently at 153/65 -Continue Amlodipine 10mg po qHS -Continue Carvedilol 12.5mg po BID -Continue Losartan 50mg po daily (4) GERD (gastroesophageal reflux disease): Plan: Chronic -Pepcid while inpatient (5) Current smoker: Plan: Briefly discussed smoking cessation -Patch offered, patient declines for now (6) Depression: Plan: Chronic -Continue Buspirone -Continue Escitalopram (7) Hypothyroidism: Plan: Chronic. -TSH normal at 0.546 on 12/22/21 -Continue Synthroid (8) DM type 2 (diabetes mellitus, type 2): Plan: Chronic. Well controlled. Last A1C on 08/05/21 = 6.5 -Continue Lantus 15u daily -ISS -Goal blood sugar 110 - 140 -Continue Gabapentin F/E/N - HD in AM for fluid removal, patient anuric, heplock, hyperK treated, repeat BMP in AM, AHA/CC/ESRD diet Ppx - Heparin Code - DNR/DNI Dispo - Admit to medical with telemetry History of Present Illness Chief Complaint: shortness of breath Primary Care Provider: Veto Gan DO Maxx Patiño is a 55yo male with history of ESRD on HD q T/R/Sat, hypothyroidism, GERD, DM, HLP presenting with shortness of breath. Patient was brought in via EMS - was hypoxic at home prior to arrival, reportedly 60% on room air. Patient did not receive his dialysis treatment on 01/02 and reports he only received 3 hours of treatment on 12/31. He has no additional complaints at this time. Upon arrival to the ER he has elevated temperature at 37.9, HD stable, adequate oxygenation on 4L NC He is oriented only to self and does not provide much additional information. ER Course: Vancomycin 2750mg, Cefepime 2gm, Sodium Zirconium Cyclosilicate Allergies Allergy/AdvReac Type Severity Reaction Status Date / Time lactose AdvReac Intermediate Gastrointestinal Verified 12/21/21 16:37 Upset Home Medications Medication Instructions Recorded Confirmed Type nitroglycerin 0.4 mg sublingual 0.4 mg sublingual DIRECTED PRN 07/11/20 12/21/21 History tablet Chest Pain HYDRAULIC KHADAR LIFT #1 ea 01/26/21 11/11/21 Rx FreeStyle Virgil 14 Day [place] #1 ea 03/08/21 11/11/21 Rx (flash glucose scanning reader) sevelamer carbonate 800 mg tablet 2,400 mg PO TIDM 04/04/21 12/21/21 History simvastatin 20 mg tablet 20 mg PO HS 05/12/21 12/21/21 History furosemide 80 mg tablet (Lasix) 80 mg PO BID #180 tabs 06/08/21 12/21/21 Rx amlodipine 10 mg tablet 10 mg PO HS #90 tabs 07/02/21 12/21/21 Rx levothyroxine 125 mcg tablet 125 mcg PO QAM #90 tabs 07/02/21 12/21/21 Rx losartan 50 mg tablet 50 mg PO QAM #90 tabs 07/02/21 12/21/21 Rx gabapentin 100 mg capsule 300 mg PO HS Pain #270 caps 07/07/21 12/21/21 Rx FreeStyle [place] 14 Day Sensor #6 ea 08/10/21 11/11/21 Rx (flash glucose sensor) insulin detemir U-100 100 unit/mL 15 unit (0.15 mL) subcut DAILY 90 09/30/21 12/21/21 Rx (3 mL) subcutaneous pen (Levemir days #15 mL FlexTouch U-100 Insulin) omeprazole 20 mg capsule,delayed 20 mg PO QAM #180 caps 09/30/21 12/21/21 Rx release pen needle, diabetic 32 gauge x #100 ea 10/02/21 11/11/21 Rx 1/4" (BD Ultra-Fine Micro Pen Needle) carvedilol 12.5 mg tablet 12.5 mg PO BID #180 tabs 10/22/21 12/21/21 Rx aspirin 81 mg tablet,delayed 81 mg PO DAILY 12/21/21 12/21/21 History release buspirone 15 mg tablet 15 mg PO AMHS 12/21/21 12/21/21 History escitalopram oxalate 20 mg tablet 20 mg PO QAM 12/21/21 12/21/21 History Past Med/Surg History Medical History Anemia in chronic kidney disease Anxiety Bedbound Depression DM type 2 (diabetes mellitus, type 2) Dyslipidemia Dysphagia ESRD (end stage renal disease) on dialysis started in 2019 - Schuyler Jenkins Sat - [facility] in [place]. (per sister, emergency medcl emt recommends 5xwk but pt refuses) Fistula LUE GERD (gastroesophageal reflux disease) Hypothyroidism Limb alert care status LUE Missed dialysis Morbid obesity with BMI of 40.0-44.9, adult Multiple system atrophy Osteoarthritis Personal history of diabetic foot ulcer Secondary hyperparathyroidism of renal origin Tremor Unable to ambulate khadar lift Volume overload Surgical History Amputation of one or more toes 3- Left Foot 2nd and 3rd Toe Amputation - Demetrius Vela MD, [facility] History of bilateral cataract extraction History of cardiac cath 01/2018 "about 2-3 weeks"; no stents placed @ [facility] by Dr. Coronel History of carpal tunnel release R wrist History of colonoscopy History of esophagogastroduodenoscopy (EGD) History of repair of anterior cruciate ligament of left knee History of repair of anterior cruciate ligament of right knee History of tonsillectomy History of tooth extraction wisdom teeth Family History Mother Family history of diabetes mellitus Grandmother Family history of diabetes mellitus maternal Other Colorectal cancer Inflammatory bowel disease Melanoma Social History Smoking Status: Current every day smoker Tobacco Type: Cigarettes Age Started Using Tobacco: 15; Cigarettes Per Day: 1 ppd; Second Hand Exposure: No; Hx Alcohol Use: No Hx Substance Use: No Preferred Language: Bermudian Communication Ability: Effective Roll Changer Required: No Beliefs That Will Affect Care: None marital status: Single Current Living Situation: Family Current Living Situation Comment: pt lives with son current occupational status: retired How many Children do You have: 2 Feels Safe at Home: Yes Seatbelt Use: other (PT. in wheelchair.) Assistive Devices: CPAP, Hospital Bed, Stair Lift and Wheelchair Review of Systems Review of Systems: All systems reviewed & are unremarkable except as noted in HPI & below Physical Exam Physical Exam: General: patient chronically ill in appearance, resting comfortably, NAD, AA&O to self, slow to answer questions Skin: warm, dry, intact, no rashes or lesions HEENT: NC/AT, PERRL, EOMI, anicteric sclera, conjunctiva without injection, external ear normal to inspection and nontender, nares patent, moist mucus membranes, dentition intact, no oropharyngeal lesions, neck supple, trachea midline, no LAD, no thyromegaly, no JVD Heart: +S1/S2, regular, no m/r/g Lungs: equal air entry bilaterally, diminished in bases bilaterally Abd: +BS, soft, NT/ND, no masses/organomegaly/ascites Ext: warm, 2+ pulses in UE/LE bilaterally, no clubbing/cyanosis or edema, LUE AV fistula with palpable thrill Neuro: nonfocal, patient AA&O to self, slow to answer questions, no facial droop , moving all extremities on command with equal strength 5/5, occasional myoclonic jerking noted Results & Data Results & Data ([facility]) Vital Signs (Past 12 Hours) Vital Signs Temp Pulse Pulse Resp BP BP Pulse Ox 01/04/22 19:18 64 17 147/70 H 93 01/04/22 18:15 64 20 170/69 H 95 01/04/22 17:20 65 24 150/77 H 95 01/04/22 16:43 67 24 149/76 H 95 01/04/22 16:43 67 24 95 01/04/22 16:01 66 24 142/88 H 95 01/04/22 16:00 01/04/22 15:48 37.9 C H 66 24 146/90 H 99 O2 Del Method O2 Flow Rate 01/04/22 19:18 Nasal Cannula 4 01/04/22 18:15 Nasal Cannula 4 01/04/22 17:20 Nasal Cannula 4 01/04/22 16:43 Nasal Cannula 4 01/04/22 16:43 Nasal Cannula 4 01/04/22 16:01 Nasal Cannula 4 01/04/22 16:00 Nasal Cannula 4 01/04/22 15:48 Nebulizer Laboratory Results Laboratory Results WBC 14.81 K/ul (4.8-10.8) H 01/04/22 16:51 RBC 2.67 M/uL (4.63-6.08) L 01/04/22 16:51 Hgb 8.9 g/dl (14.0-18.0) L 01/04/22 16:51 POC Hgb 9.2 g/dl (14.0-18.0) L 01/04/22 16:51 Hct 26.9 % (40.1-51.0) L 01/04/22 16:51 POC Hct 27 % (42-52) L 01/04/22 16:51 MCV 100.7 fL (80.0-100.0) H 01/04/22 16:51 MCH 33.3 pg (25.0-34.0) 01/04/22 16:51 MCHC 33.1 g/dL (32.0-36.0) 01/04/22 16:51 RDW Std Deviation 46.0 fL (36.4-46.3) 01/04/22 16:51 RDW Coeff of Jorge A 12.5 % (11.5-14.5) 01/04/22 16:51 Plt Count 190 K/uL (130-400) 01/04/22 16:51 MPV 10.5 fL (9.4-12.4) 01/04/22 16:51 Immature Gran % (Auto) 0.5 % 01/04/22 16:51 Neut % (Auto) 88.8 % 01/04/22 16:51 Lymph % (Auto) 6.4 % 01/04/22 16:51 [place] % (Auto) 3.3 % 01/04/22 16:51 Eos % (Auto) 0.6 % 01/04/22 16:51 Baso % (Auto) 0.4 % 01/04/22 16:51 Neut # (Auto) 13.14 K/uL (1.4-6.5) H 01/04/22 16:51 Lymph # (Auto) 0.95 K/uL (1.2-3.4) L 01/04/22 16:51 [place] # (Auto) 0.49 K/uL (0.24-0.82) 01/04/22 16:51 Eos # (Auto) 0.09 K/uL (0-0.50) 01/04/22 16:51 Baso # (Auto) 0.06 K/uL (0-0.2) 01/04/22 16:51 Immature Gran # (Auto) 0.08 K/uL (0.00-0.02) H 01/04/22 16:51 PT 14.0 Seconds (9.0-12.0) H 01/04/22 16:51 INR 1.3 (0.9-1.1) H 01/04/22 16:51 APTT 23.3 Seconds (21.0-31.0) 01/04/22 16:51 PTT Ratio 0.8 01/04/22 16:51 VBG pH 7.39 (7.36-7.41) 01/04/22 16:51 VBG pCO2 50 mmHg (38-50) 01/04/22 16:51 VBG pO2 40 mmHg 01/04/22 16:51 VBG HCO3 30 mmol/L 01/04/22 16:51 VBG O2 Saturation 70.2 % 01/04/22 16:51 VBG Base Excess 4.2 mEq/L 01/04/22 16:51 POC Sodium 134 mmol/L (135-144) L 01/04/22 16:51 Sodium 136 mmol/L (136-145) 01/04/22 16:51 POC Potassium 6.0 mmol/L (3.3-5.0) H 01/04/22 16:51 Potassium 6.0 mmol/L (3.5-5.1) H 01/04/22 16:51 POC Chloride 97 mmol/L (101-112) L 01/04/22 16:51 Chloride 94 mmol/L (98-107) L 01/04/22 16:51 Carbon Dioxide 27 mmol/L (21-32) 01/04/22 16:51 POC Total CO2 26 mmol/L (24-31) 01/04/22 16:51 Anion Gap 15 (3-11) H 01/04/22 16:51 POC Anion Gap 18.0 mmol/L (16-25) 01/04/22 16:51 POC BUN 74 mg/dl (7-18) H 01/04/22 16:51 BUN 72 mg/dl (6-23) H 01/04/22 16:51 Creatinine 12.72 mg/dl (0.6-1.4) H* 01/04/22 16:51 POC Creatinine 15.1 mg/dl (0.6-1.3) H* 01/04/22 16:51 Est Cr Clr Drug Dosing Not Reportable 01/04/22 16:51 Est GFR ( Amer) 4.2 ml/min 01/04/22 16:51 Est GFR (Non-Af Amer) 3.6 ml/min 01/04/22 16:51 BUN/Creatinine Ratio 5.7 (10-20) L 01/04/22 16:51 Glucose 131 mg/dl (70-99(Fasting)) H 01/04/22 16:51 POC Glucose 205 mg/dl (70-99) H 01/04/22 21:46 POC Glucose (other) 139 mg/dl (70-99) H 01/04/22 16:51 Lactate 1.0 mmol/L (0.4-2.0) 01/04/22 16:51 Calcium 9.3 mg/dl (8.5-10.1) 01/04/22 16:51 POC Ioniz Calcium Alessandro 0.97 mmol/l (1.12-1.32) L 01/04/22 16:51 Magnesium 2.3 mg/dl (1.7-2.4) 01/04/22 16:51 Total Bilirubin 0.6 mg/dl (0.2-1.0) 01/04/22 16:51 Direct Bilirubin 0.2 mg/dl (0-0.2) 01/04/22 16:51 AST 6 U/L (13-39) L 01/04/22 16:51 ALT 7 U/L (7-52) 01/04/22 16:51 Alkaline Phosphatase 84 U/L (34-104) 01/04/22 16:51 Troponin I High Sens 28.0 pg/ml (0-20) H 01/04/22 16:51 Total Protein 7.4 gm/dl (6.0-8.3) 01/04/22 16:51 Albumin 3.8 gm/dl (3.4-5.0) 01/04/22 16:51 Procalcitonin 0.15 ng/ml (0-0.5) 01/04/22 16:51 SARS-CoV-2, RNA, NAAT NEGATIVE (NEGATIVE) 01/04/22 17:23 Impressions Chest X-Ray 01/04/22 16:11 XR chest 1V portable HISTORY: 66 years-old Male Sepsis acute sepsis COMPARISON: Chest radiograph 12/21/2021 TECHNIQUE: Portable AP view the chest FINDINGS: Cardiac silhouette is enlarged. Pulmonary vascular congestion with pulmonary vascular congestion and interstitial coarsening. Pulmonary arterial hypertension. Chronic blunting of the lateral left costophrenic angle secondary to a prominent epicardial fat pad. Possible trace pleural effusions with mild bibasilar opacities. Degenerative changes of the shoulders and spine. IMPRESSION: 1. Cardiomegaly with pulmonary vascular congestion and interstitial coarsening suggestive of pulmonary edema. 2. Chronic left basilar opacity with probable trace pleural effusions. 3. Mild bibasilar opacities suggestive of atelectasis versus pneumonitis. ACT 112: Negative or not required by law. The above report was generated using voice recognition software. It may contain grammatical, syntax or spelling errors. Electronically signed by: Diony Baxter M.D. 01/04/2022 4:34 PM Code Status & VTE Plan VTE Prophylaxis Plan VTE Prophylaxis will be ordered: Yes PG Care Time/CCT Total # of Minutes Spent Total Time Spent with Patient: Total time spent is greater than 50% in coordination of care (as documented) at patient's floor/unit and/or counseling patient: Coding Level of Care Code 66544 Initial Inpt Care Lvl 3 Diagnoses Acute and chronic respiratory failure with hypoxia J96.21 ESRD (end stage renal disease) on dialysis N18.6; Z99.2 Hypertension I10 Hypertension type: essential hypertension GERD (gastroesophageal reflux disease) K21.9 Current smoker F17.200 Depression F32.9 Depression Type: unspecified Hypothyroidism E03.9 Hypothyroidism type: unspecified DM type 2 (diabetes mellitus, type 2) E11.9 (1) Depression Depression Type: unspecified Qualified Code(s): F32.9 - Major depressive disorder, single episode, unspecified (2) Hypertension Hypertension type: essential hypertension Qualified Code(s): I10 - Essential (primary) hypertension (3) Hypothyroidism Hypothyroidism type: unspecified Qualified Code(s): E03.9 - Hypothyroidism, unspecified
[2022-01-04] MEDS ORDERED: POLYETHYLENE (MIRALAX) 17 GM PACK PO PRN (22:29)
[2022-01-04] MEDS ORDERED: DEXTROSE 50% 50 ML SYRINGE IV PRN (22:29)
[2022-01-04] MEDS ORDERED: ONDANSETRON INJ 2 MG/ML 2 ML VIAL IV PRN (22:29)
[2022-01-04] MEDS ORDERED: GLUCOSE 10 TAB/TUBE PO PRN (22:29)
[2022-01-04] MEDS ORDERED: ACETAMINOPHEN 325 MG TAB PO PRN (22:29)
[2022-01-04] MEDS ORDERED: GLUCOSE 40% GEL 15 GM TUBE PO PRN (22:29)
[2022-01-04] MEDS ORDERED: GLUCAGON FOR INJ 1 MG VIAL SQ PRN (22:29)
[2022-01-04] MEDS ORDERED: CARBOHYDRATES FOR HYPOGLYCEMIA PO PRN (22:29)
[2022-01-04] MEDS: Patient's HEIGHT &/or WEIGHT Needed SCH ×3 (23:24→23:25)
[2022-01-05] MEDS: INSULIN ASPART PER UNIT SC SCH ×5 (00:02→21:17)
[2022-01-05] MEDS: HEPARIN SOD 5,000 UNIT/0.5 ML VIAL SQ SCH ×3 (00:04→21:16)
[2022-01-05] MEDS: GABAPENTIN 300 MG CAP PO SCH ×2 (00:04→21:16)
[2022-01-05] MEDS: amLODIPine BESYLATE 5 MG TAB PO SCH ×2 (00:05→21:15)
[2022-01-05] MEDS: FUROSEMIDE 80 MG TAB PO SCH ×3 (00:07→15:21)
[2022-01-05] MEDS: busPIRone 15 MG TAB PO SCH ×3 (00:08→21:16)
[2022-01-05] MEDS: SIMVASTATIN 20 MG TAB PO SCH ×2 (00:15→21:16)
[2022-01-05] MEDS: carvediloL 12.5 MG TAB PO SCH ×3 (00:19→21:16)
[2022-01-05] MEDS: LEVOTHYROXINE SODIUM 125 MCG TABLET PO SCH (05:43)
[2022-01-05] MEDS ORDERED: MICONAZOLE NITRATE POWDER 43 GM EXT PRN (06:01)
[2022-01-05 08:41] LABS: Hematocrit (blood only) 25.8 % (40.1-51.0); Hemoglobin 8.7 g/dl (14.0-18.0); Mean Corpuscular Hemoglobin 33.7 pg (25.0-34.0); Mean Corpuscular Hgb Conc 33.7 g/dL (32.0-36.0); Mean Platelet Volume 10.7 fL (9.4-12.4); Platelet Count 163 K/uL (130-400); RDW Coefficient of Variation 12.3 % (11.5-14.5); RDW Standard Deviation 44.6 fL (36.4-46.3); Red Blood Count 2.58 M/uL (4.63-6.08); White Blood Count 11.47 K/ul (4.8-10.8)
--- NOTE | 2022-01-05 08:44 | Electrocardiogram Report ---
Test Reason : Blood Pressure : / mmHG Vent. Rate : 110 BPM Atrial Rate : 110 BPM P-R Int : 162 ms QRS Dur : 070 ms QT Int : 470 ms P-R-T Axes : 000 170 264 degrees QTc Int : 636 ms Poor daa quality precludes interpretation Heart rate 66 BPM Confirmed by Sahil Jimenez ([id number]) on 01/05/2022 8:44:38 AM Referred By: REFERRED SELF Confirmed By:Reynold Jimenez
[2022-01-05] MEDS ORDERED: SODIUM CHLORIDE 0.9% 1000ML 1,000 ML IV PRN (08:54)
[2022-01-05] MEDS ORDERED: HEPARIN SOD (PORCINE) 1000 UNIT/ML IV ONE (08:54)
--- NOTE | 2022-01-05 08:59 | Nephrology Consultation ---
Date of Consultation January 05, 2022 Assessment & Plan (1) ESRD (end stage renal disease) on dialysis: * Hyperkalemic, volume overloaded. Will provide HD today according to outpatient orders and attempt 4 L UF. Orders placed in EMR and HD RN allergist/pediatric pulmonologist notified * Repeat PRP, CXR in am (2) Acute and chronic respiratory failure with hypoxia: * On chronic O2 at 2L/min at home and nighttime CPAP * EMD physician reports no oxygen at home when EMS arrived. Will need case management involved. Patient may require SNF * CXR film reviewed this am. Severe pulmonary congestion noted * Will attempt 4 L UF w/ HD today * Recommend weaning O2 to 2 L/min to avoid CO2 retention (3) Anemia in chronic kidney disease: * Will provide MARILYN w/ HD today (4) Debilitated: * Poorly adherent to outpatient HD treatments, frequent hospitalizations. Patient is failing on his own. May need case management assistance to evaluate for SNF vs palliative care. History of Present Illness Reason for Consultation: ESKD on IHD, hyperkalemia, CHF Attending Physician: Demetrius Saldana MD History of Present Illness Mr. Patiño is a 66 year old white male who is seen at the request of the [facility] Hospitalist Service to provide HD and assist w/ medical management during his hospitalization. Medical records in the EMR were reviewed today and are summarized as follows: Mr. Patiño has ESkD due to DKD. He dialyzes TTS at [facility] under the care of Dr. Francis (4hr 15min, 2k 2Ca 1Mg F-250NR EDW 131.2kg, access L upper arm AVF). Mr. Patiño's medical history is significant for AODM, JANET, ASCVD, current tobacco use, hypothyroidism, obesity. Mr. Patiño is currently obtunded and cannot provide a history. EMD notes indicate that he reduced his dialysis to only 3 hours and did not attend his Tuesday treatment. Yesterday he was found by his family to be poorly responsive. EMS was called and SaO2 was 60% on RA. In the EMD CXR was c/w CHF. Serum K 6.0. Mr. Patiño presented after inpatient dialysis closed for the day. He was admitted to the medical service, placed on oxygen and Lokelma was provided to reduce his serum potassium. Allergies Allergy/AdvReac Type Severity Reaction Status Date / Time lactose AdvReac Intermediate Gastrointestinal Verified 12/21/21 16:37 Upset Home Medications Medication Instructions Recorded Confirmed Type nitroglycerin 0.4 mg sublingual 0.4 mg sublingual DIRECTED PRN 07/11/20 12/21/21 History tablet Chest Pain HYDRAULIC KHADAR LIFT #1 ea 01/26/21 11/11/21 Rx FreeStyle Virgil 14 Day [place] #1 ea 03/08/21 11/11/21 Rx (flash glucose scanning reader) sevelamer carbonate 800 mg tablet 2,400 mg PO TIDM 04/04/21 12/21/21 History simvastatin 20 mg tablet 20 mg PO HS 05/12/21 12/21/21 History furosemide 80 mg tablet (Lasix) 80 mg PO BID #180 tabs 06/08/21 12/21/21 Rx amlodipine 10 mg tablet 10 mg PO HS #90 tabs 07/02/21 12/21/21 Rx levothyroxine 125 mcg tablet 125 mcg PO QAM #90 tabs 07/02/21 12/21/21 Rx losartan 50 mg tablet 50 mg PO QAM #90 tabs 07/02/21 12/21/21 Rx gabapentin 100 mg capsule 300 mg PO HS Pain #270 caps 07/07/21 12/21/21 Rx FreeStyle Virgil 14 Day Sensor #6 ea 08/10/21 11/11/21 Rx (flash glucose sensor) insulin detemir U-100 100 unit/mL 15 unit (0.15 mL) subcut DAILY 90 09/30/21 12/21/21 Rx (3 mL) subcutaneous pen (Levemir days #15 mL FlexTouch U-100 Insulin) omeprazole 20 mg capsule,delayed 20 mg PO QAM #180 caps 09/30/21 12/21/21 Rx release pen needle, diabetic 32 gauge x #100 ea 10/02/21 11/11/21 Rx 1/4" (BD Ultra-Fine Micro Pen Needle) carvedilol 12.5 mg tablet 12.5 mg PO BID #180 tabs 10/22/21 12/21/21 Rx aspirin 81 mg tablet,delayed 81 mg PO DAILY 12/21/21 12/21/21 History release buspirone 15 mg tablet 15 mg PO AMHS 12/21/21 12/21/21 History escitalopram oxalate 20 mg tablet 20 mg PO QAM 12/21/21 12/21/21 History Patient History Medical History Anemia in chronic kidney disease Anxiety Bedbound Depression DM type 2 (diabetes mellitus, type 2) Dyslipidemia Dysphagia ESRD (end stage renal disease) on dialysis started in 2019 - Schuyler Jenkins, Sat - [facility] in [place]. (per sister, student ambassador recommends 5xwk but pt refuses) Fistula LUE GERD (gastroesophageal reflux disease) Hypothyroidism Limb alert care status LUE Missed dialysis Morbid obesity with BMI of 40.0-44.9, adult Multiple system atrophy Osteoarthritis Personal history of diabetic foot ulcer Secondary hyperparathyroidism of renal origin Tremor Unable to ambulate khadar lift Volume overload Surgical History Amputation of one or more toes 3 Left Foot 2nd and 3rd Toe Amputation - Demetrius Vela MD, [facility] History of bilateral cataract extraction History of cardiac cath 01/2018 "about 2-3 weeks"; no stents placed @ [facility] by Dr. Coronel History of carpal tunnel release R wrist History of colonoscopy History of esophagogastroduodenoscopy (EGD) History of repair of anterior cruciate ligament of left knee History of repair of anterior cruciate ligament of right knee History of tonsillectomy History of tooth extraction wisdom teeth Family History Mother Family history of diabetes mellitus Grandmother Family history of diabetes mellitus maternal Other Colorectal cancer Inflammatory bowel disease Melanoma Social History Smoking Status: Current every day smoker Tobacco Type: Cigarettes Age Started Using Tobacco: 15; Cigarettes Per Day: 1 ppd; Second Hand Exposure: No; Do You Dip or Chew Tobacco: No; Tobacco Cessation Education Requested by Patient: No Hx Alcohol Use: No Hx Substance Use: No Preferred Language: Kuwaiti Communication Ability: Effective Investigative Analyst Required: No Beliefs That Will Affect Care: None marital status: Single Current Living Situation: Family Current Living Situation Comment: pt lives with son current occupational status: retired How many Children do You have: 2 Other Information That Helps Us Care for You: No Feels Safe at Home: Yes Safety Concerns: Feels Safe At This Time Seatbelt Use: other (PT. in wheelchair.) Assistive Devices: Oxygen - Continuous Review of Systems Review of Systems: Unobtainable due to reduced consciousness Physical Exam Physical Exam: Currently on O2 at 4L/min NC Constitutional: + ill appearing Eyes: PERRL, conjunctivae normal, anicteric sclerae ENMT: external ear and nose normal, oropharynx normal Neck: trachea midline, no thyromegaly Respiratory: Auscultation: + rales Cardiovascular: Rate/Rhythm: regular rate Extremities: + AV fistula (+ bruit) Gastrointestinal (Abdomen): Inspection/Auscultation: normal bowel sounds Percussion/Palpation: abdomen nontender Neurologic: + obtunded Results & Data ([facility]) Vital Signs (Past 12 Hours) Vital Signs Temp Pulse Pulse Resp BP BP Pulse Ox 01/05/22 07:35 62 01/05/22 07:33 36.7 C 61 16 151/68 H 91 01/04/22 22:18 59 L 01/04/22 21:27 61 01/05/22 03:19 37.0 C 62 18 138/65 97 01/05/22 02:45 01/05/22 02:45 37.1 C 58 L 18 156/57 H 96 01/05/22 00:18 59 L 18 146/62 H 96 01/04/22 22:29 37.1 C 58 L 18 156/57 H 95 01/04/22 21:02 63 23 153/65 H 94 O2 Del Method O2 Flow Rate 01/05/22 07:35 01/05/22 07:33 Nasal Cannula 4 01/04/22 22:18 01/04/22 21:27 01/05/22 03:19 Nasal Cannula 4 01/05/22 02:45 Nasal Cannula 4 01/05/22 02:45 Room Air 4 01/05/22 00:18 Nasal Cannula 4 01/04/22 22:29 Nasal Cannula 4 01/04/22 21:02 Nasal Cannula 4 Laboratory Results Laboratory Tests 01/05/22 08:19 WBC 11.47 H Hgb 8.7 L Hct 25.8 L Plt Count 163 Laboratory Tests 01/05/22 08:19 Sodium 134 L Potassium 6.5 H* Chloride 94 L Carbon Dioxide 25 BUN 94 H D Creatinine 13.26 H* D Glucose 284 H Calcium 8.6 Diagnostic Findings 01/04/22 CXR: 1. Cardiomegaly with pulmonary vascular congestion and interstitial coarsening suggestive of pulmonary edema. 2. Chronic left basilar opacity with probable trace pleural effusions. 3. Mild bibasilar opacities suggestive of atelectasis versus pneumonitis. PG Care Time/CCT Total # of Minutes Spent Total Time Spent with Patient: Total time spent is greater than 50% in coordination of care (as documented) at patient's floor/unit and/or counseling patient: Coding Level of Care Code 08074 Inpt Consult Level 5 Diagnoses ESRD (end stage renal disease) on dialysis N18.6; Z99.2 Acute and chronic respiratory failure with hypoxia J96.21 Anemia in chronic kidney disease N18.6; D63.1; Z99.2 Chronic kidney disease stage: on chronic dialysis Debilitated R53.81 (1) Anemia in chronic kidney disease Chronic kidney disease stage: on chronic dialysis Qualified Code(s): N18.6 - End stage renal disease; D63.1 - Anemia in chronic kidney disease; Z99.2 - Dependence on renal dialysis
[2022-01-05] MEDS ORDERED: FAMOTIDINE 40 MG TABLET PO SCH (09:00)
[2022-01-05] MEDS: SEVELAMER HCL 800 MG TABLET PO SCH ×3 (09:25→16:55)
[2022-01-05] MEDS: FAMOTIDINE 20 MG TAB PO SCH (09:36)
[2022-01-05] MEDS: ASPIRIN 81 MG ECTAB PO SCH (09:36)
[2022-01-05] MEDS: ESCITALOPRAM OXALATE 20 MG TAB PO SCH (09:37)
[2022-01-05] MEDS: LOSARTAN POTASSIUM 50 MG TAB PO SCH (09:37)
[2022-01-05] MEDS: LANTUS PER UNIT CHARGE SQ SCH (09:40)
[2022-01-05 10:19] LABS: BUN Creatinine Ratio 7.1 (10-20); Calcium 8.6 mg/dl (8.5-10.1); Creatinine Clr Calc Pharmacy 7.6 ml/min; Est GFR (Non-African American) 3.4 ml/min; Potassium 6.5 mmol/L (3.5-5.1)
[2022-01-05] MEDS: HEPARIN SOD (PORCINE) 1000 UNIT/ML IV SCH ×2 (11:24→13:05)
[2022-01-05] MEDS ORDERED: EPOETIN ALFA 10,000 UNITS in SYRINGE 0 ML IV SCH (11:45)
[2022-01-05] MEDS ORDERED: EPOETIN ALFA 10,000 UNITS/ML VIAL IV ONE (12:00)
[2022-01-05] MEDS: SODIUM ZIRCONIUM CYCLOSILICATE 10 GM PACKET PO SCH (15:22)
--- NOTE | 2022-01-05 16:45 | Hospitalist Progress Note ---
Date of Service January 05, 2022 Assessment & Plan (1) Acute and chronic respiratory failure with hypoxia: Plan: 66yo male with multiple medical comorbidities presenting from home with report of acute hypoxic respiratory failure and confusion. SpO2 in the 60's . He was placed on 15L NRB en route to [facility]. Saturations have been adequate - presently 94% on 4L. -CXR with cardiomegaly with pulmonary vascular congestion and interstitial coarsening suggestive of pulmonary edema. Also with mild bibasilar opacities suggestive of atelectasis versus pneumonitis. -Patient missed HD on 01/02/22 and did not receive a complete treatment before that either. Suspect acute hypoxic respiratory failure secondary to pulmonary vascular congestion and volume overload secondary to missed HD treatment. -Patient is anuric. Presently saturating well on 4L NC with no acute distress. -Suspect his confusion is in part secondary to uremia. BUN of 72. Labs otherwise with AGMA with Gap of 15, HCO3 of 27 -K Elevated on admission, given Sodium Zirconium Cyclosilicate. Morning repeat 6.5, undergoing dialysis with repeat electrolytes pending -He was given 2gm of Cefepime as well as loading dose of Vancomycin. -Admit to medical with telemetry -Maintain supplemental O2 with goal saturation of >94% - 01/05 arouses transiently but does not engage in much conversation. Undergoing dialysis, oxygen requirements improving weaning down to 2 L. Anticipate patient to require placement at discharge,Per prior conversations while he has expressed a desire to stop dialysis he also does not wish to move to comfort measures only/forego this and detention environment would lik john be most beneficial if available on discharge.. Patient is unable to engage in meaningful conversation at time of assessment due to cognitive status, will continue to follow (2) ESRD (end stage renal disease) on dialysis: Plan: Patient with ESRD on HD q T/R/Sat. Missed last HD treatment on 01/02 and had a partial treatment before that. Anuric. Hyperkalemia treated with dose of Sodium Zirconium Cyclosilicate. AG of 15 -Nephrology consultation appreciated. Will most likely have HD in AM -Continue Sevelamer carbonate 2400mg po TID with meals -Repeat labs in AM (3) Hypertension: Plan: Elevated blood pressure presently at 153/65 -Continue Amlodipine 10mg po qHS -Continue Carvedilol 12.5mg po BID -Continue Losartan 50mg po daily (4) GERD (gastroesophageal reflux disease): Plan: Chronic -Pepcid while inpatient (5) Current smoker: Plan: Briefly discussed smoking cessation -Patch offered, patient declines for now (6) Depression: Plan: Chronic -Continue Buspirone -Continue Escitalopram (7) Hypothyroidism: Plan: Chronic. -TSH normal at 0.546 on 12/22/21 -Continue Synthroid (8) DM type 2 (diabetes mellitus, type 2): Plan: Chronic. Well controlled. Last A1C on 08/05/21 = 6.5 -Continue Lantus 15u daily -ISS -Goal blood sugar 110 - 140 -Continue Gabapentin F/E/N - HD in AM for fluid removal, patient anuric, heplock, hyperK treated, repeat BMP in AM, AHA/CC/ESRD diet Ppx - Heparin Code - DNR/DNI Dispo - Admit to medical with telemetry Admission and Anticipated Discharge Date Admission Date: January 04, 2022 Subjective Seen at bedside during dialysis, and following. Patient is somnolent, awakens transiently but gives no meaningful history. Patient had previously expressed a desire to no longer follow dialysis, but with clinical decline dialysis dependence has since been pursuing some treatment/Treatments. Review of Systems Review of Systems: Unobtainable due to cognitive status Physical Exam Physical Exam: General: Obtunded, arouses transiently. HEENT: Atraumatic, normocephalic. Pulm: Bibasilar crackles/rales. Symmetrical chest rise. No increase in work of breathing. No respiratory distress. Cardiac: RRR, -mrg. Radial pulses intact and symmetrical. Abdominal: Does not wince to abdominal palpitation, no involuntary guarding Extremities: + edema Results & Data Results & Data ([facility]) Vital Signs (Past 12 Hours) Vital Signs Temp Pulse Pulse Pulse Resp BP BP 01/05/22 15:00 01/05/22 15:00 67 01/05/22 14:52 36.8 C 67 18 144/78 H 01/05/22 14:25 36.9 C 64 142/65 H 01/05/22 13:30 62 121/88 01/05/22 13:00 61 152/73 H 01/05/22 12:30 59 L 148/74 H 01/05/22 12:00 55 L 137/65 01/05/22 11:30 58 L 145/76 H 01/05/22 07:45 01/05/22 11:00 58 L 132/59 L 01/05/22 10:30 54 L 132/59 L 01/05/22 10:00 55 L 129/57 L 01/05/22 09:52 36.6 C 57 L 01/05/22 09:33 01/05/22 09:00 01/05/22 07:35 62 01/05/22 07:33 36.7 C 61 16 151/68 H Pulse Ox O2 Del Method O2 Flow Rate 01/05/22 15:00 95 Nasal Cannula 2 01/05/22 15:00 01/05/22 14:52 97 Nasal Cannula 2 01/05/22 14:25 01/05/22 13:30 01/05/22 13:00 01/05/22 12:30 01/05/22 12:00 01/05/22 11:30 01/05/22 07:45 Nasal Cannula 4 01/05/22 11:00 01/05/22 10:30 01/05/22 10:00 01/05/22 09:52 01/05/22 09:33 95 Nasal Cannula 3 01/05/22 09:00 95 Nasal Cannula 4 01/05/22 07:35 01/05/22 07:33 91 Nasal Cannula 4 PG Care Time/CCT Total # of Minutes Spent Total Time Spent with Patient: Total time spent is greater than 50% in coordination of care (as documented) at patient's floor/unit and/or counseling patient: Coding Level of Care Code 97520 Subseq Hosp Care Lvl 2 Diagnoses Acute and chronic respiratory failure with hypoxia J96.21 ESRD (end stage renal disease) on dialysis N18.6; Z99.2 Hypertension I10 Hypertension type: essential hypertension GERD (gastroesophageal reflux disease) K21.9 Current smoker F17.200 Depression F32.9 Depression Type: unspecified Hypothyroidism E03.9 Hypothyroidism type: unspecified DM type 2 (diabetes mellitus, type 2) E11.9 (1) Hypertension Hypertension type: essential hypertension Qualified Code(s): I10 - Essential (primary) hypertension (2) Depression Depression Type: unspecified Qualified Code(s): F32.9 - Major depressive disorder, single episode, unspecified (3) Hypothyroidism Hypothyroidism type: unspecified Qualified Code(s): E03.9 - Hypothyroidism, unspecified
[2022-01-06] MEDS: LEVOTHYROXINE SODIUM 125 MCG TABLET PO SCH (05:41)
[2022-01-06] MEDS: ESCITALOPRAM OXALATE 20 MG TAB PO SCH (08:21)
[2022-01-06] MEDS: FUROSEMIDE 80 MG TAB PO SCH ×2 (08:22→16:46)
[2022-01-06] MEDS: LOSARTAN POTASSIUM 50 MG TAB PO SCH (08:22)
[2022-01-06] MEDS: SEVELAMER HCL 800 MG TABLET PO SCH ×3 (08:22→16:46)
[2022-01-06] MEDS: FAMOTIDINE 20 MG TAB PO SCH (08:22)
[2022-01-06] MEDS: ASPIRIN 81 MG ECTAB PO SCH (08:22)
[2022-01-06] MEDS: carvediloL 12.5 MG TAB PO SCH ×2 (08:23→22:00)
[2022-01-06] MEDS: HEPARIN SOD 5,000 UNIT/0.5 ML VIAL SQ SCH ×2 (08:23→22:00)
[2022-01-06] MEDS: busPIRone 15 MG TAB PO SCH ×2 (08:23→22:00)
[2022-01-06 08:24] LABS: BUN Creatinine Ratio 6.1 (10-20); Calcium 8.7 mg/dl (8.5-10.1); Creatinine Clr Calc Pharmacy 11.8 ml/min; Est GFR (African American) 6.8 ml/min; Est GFR (Non-African American) 5.8 ml/min; Potassium 4.5 mmol/L (3.5-5.1)
[2022-01-06] MEDS: INSULIN ASPART PER UNIT SC SCH ×4 (08:27→21:46)
[2022-01-06] MEDS: LANTUS PER UNIT CHARGE SQ SCH (08:28)
--- NOTE | 2022-01-06 08:43 | Hospitalist Progress Note ---
Date of Service January 06, 2022 Assessment & Plan (1) Acute and chronic respiratory failure with hypoxia: Plan: 66yo male secondary to pulmonary edema from renal failure, pt missed outpt dialysis treatments - Metabolic encephalopathy in setting of hyperkalemia, uremia and fluid volume overload due to missed dialysis Rx -K Elevated on admission, given Sodium Zirconium Cyclosilicate. Morning repeat 6.5, undergoing dialysis with repeat electrolytes pending -He was given 2gm of Cefepime as well as loading dose of Vancomycin. - -Maintain supplemental O2 with goal saturation of >94 - 01/05 arouses transiently but does not engage in much conversation. Undergoing dialysis, oxygen requirements improving weaning down to 2 L. Per prior conversations while he has expressed a desire to stop dialysis he also does not wish to move to comfort measures only/forego this and residential environment would likely be most beneficial if available on discharge.. (2) ESRD (end stage renal disease) on dialysis: Plan: Patient with ESRD on HD q T/R/Sat. Missed last HD treatment on 01/02 and had a partial treatment before that. Anuric Hyperkalemia resolved after dialysis and Sodium Zirconium Cyclosilicate. -Nephrology consultation appreciated and managing dialysis -Continue Sevelamer carbonate 2400mg po TID with meals (3) Hypertension: Plan: -Continue Amlodipine 10mg po qHS -Continue Carvedilol 12.5mg po BID -Continue Losartan 50mg po daily (4) GERD (gastroesophageal reflux disease): Plan: Chronic -Pepcid while inpatient (5) Current smoker: Plan: Patient offered nicotine patch as he refuses family will bring in nicotine chewing pouches that he can use. He still wishes to go outside and smoke which he was refused (6) Depression: Plan: Chronic -Continue Buspirone -Continue Escitalopram (7) Hypothyroidism: Plan: Chronic. -TSH normal at 0.546 on 12/22/21 -Continue Synthroid (8) DM type 2 (diabetes mellitus, type 2): Plan: Chronic. Last A1C on 08/05/21 = 6.5 -Continue Lantus 15u daily -ISS -Goal blood sugar 110 - 140 -Continue Gabapentin Ppx - Heparin Code - DNR/DNI Admission and Anticipated Discharge Date Admission Date: January 04, 2022 Subjective pt is very hard of hearing, feels less short of breath, he is most concerned a bout his inability to smoke while here and declines the nicotine patches, overall usually gets around with power wheel chair and is very weakened here Review of Systems Review of Systems: Moderate distress and fatigue no headache, no visual changes no speech or swallowing issues no chest pain, pressure or palpitations Exertional shortness of breath, cough or wheezes no abdominal pain, nausea or vomiting, diarrhea or constipation no dysuria, hematuria or frequency no focal joint pain does have significant peripheral swelling no back pain, CVA tenderness or radicular pain no bruising, bleeding or rashes no focal signs of weakness or numbness or altered sensation no complaints of anxiety or depression.. Physical Exam Physical Exam: The patient appeared chronically ill and debilitated Vital signs as documented. Head exam is normocephalic atraumatic Neck is without JVD, thyromegaly, or carotid bruits. Lungs are clear to auscultation diminished at the bases Cardiac exam, Rhythm is regular.. No murmurs, rubs or gallops. Abdominal exam reveals normal bowel sounds, soft non tender, no masses Extremities are 1+ 2+ edematous and both pedal pulses are present Neurologic exam is alert and oriented, no focal loss of strength or sensation Skin is without bruises or rashes Psychologically is without concerns for anxiety or depression.. Results & Data Results & Data ([facility]) Vital Signs (Past 12 Hours) Vital Signs Temp Pulse Pulse Resp BP Pulse Ox O2 Del Method 01/06/22 07:20 Nasal Cannula 01/06/22 08:21 67 90 Room Air 01/06/22 07:19 98 Nasal Cannula 01/06/22 07:11 59 L 01/06/22 07:00 98.4 F 61 20 171/78 H 98 Nasal Cannula 01/06/22 04:00 97.7 F 62 20 156/76 H 94 BiPAP 01/06/22 03:43 61 16 92 01/05/22 22:12 66 01/06/22 00:49 Nasal Cannula 01/05/22 22:29 98.1 F 60 20 154/65 H 98 Nasal Cannula 01/05/22 22:55 63 20 96 O2 Flow Rate 01/06/22 07:20 2 01/06/22 08:21 0 01/06/22 07:19 2 01/06/22 07:11 01/06/22 07:00 2 01/06/22 04:00 01/06/22 03:43 2 01/05/22 22:12 01/06/22 00:49 3 01/05/22 22:29 3 01/05/22 22:55 2 PG Care Time/CCT Total # of Minutes Spent Total Time Spent with Patient: Total time spent is greater than 50% in coordination of care (as documented) at patient's floor/unit and/or counseling patient: Coding Level of Care Code 83842 Subseq Hosp Care Lvl 3 Diagnoses Acute and chronic respiratory failure with hypoxia J96.21 ESRD (end stage renal disease) on dialysis N18.6; Z99.2 Hypertension I10 Hypertension type: essential hypertension GERD (gastroesophageal reflux disease) K21.9 Current smoker F17.200 Depression F32.9 Depression Type: unspecified Hypothyroidism E03.9 Hypothyroidism type: unspecified DM type 2 (diabetes mellitus, type 2) E11.9 (1) Depression Depression Type: unspecified Qualified Code(s): F32.9 - Major depressive disorder, single episode, unspecified (2) Hypothyroidism Hypothyroidism type: unspecified Qualified Code(s): E03.9 - Hypothyroidism, unspecified (3) Hypertension Hypertension type: essential hypertension Qualified Code(s): I10 - Essential (primary) hypertension
--- NOTE | 2022-01-06 08:47 | Nephrology Progress Note ---
Date of Service January 06, 2022 Assessment & Plan (1) ESRD (end stage renal disease) on dialysis: Plan: * Mr. Patiño was dialyzed yesterday for 4 L UF. There were no complications. He remains above his outpatient EDW and requires O2 at 1 L /min NC. I have reviewed 01/06/22 CXR findings w/ patient today. CXR shows interstitial edema and small bilateral effusions. I advised dialysis today for continued volume removal. Mr. Patiño refused dialysis today. He is insistent upon returning home and feels that his family can appropriately care for him. We discussed his missed outpatient dialysis treatments. Mr. Patiño indicated that he may not keep a 3x/week dialysis schedule, but will continue with dialysis "when I feel like it". (2) Acute and chronic respiratory failure with hypoxia: Plan: * On chronic O2 at 2L/min at home and nighttime CPAP * EMD physician reports no oxygen at home when EMS arrived. Will need case management involved. Patient may require SNF (3) Anemia in chronic kidney disease: Plan: * MARILYN provided w/ HD yesterday (4) Debilitated: Plan: * Poorly adherent to outpatient HD treatments, frequent hospitalizations. Patient is failing on his own. Case management has been consulted to assist w/ SNF placement. May also need to consider palliative care consultation to discuss goals of care with patient and his family. If he is not willing to attend HD 3x/week transition to full comfort measures may be appropriate Admission and Anticipated Discharge Date Admission Date: January 04, 2022 Subjective Mr. Patiño was evaluated in his hospital room this morning. He was breathing comfortably flat in bed on 1L O2 NC Review of Systems Constitutional: no fever Eyes: no worsening vision Ear, Nose, Mouth, Throat: no problem reported Respiratory: no dyspnea Cardiovascular: no chest pain and no palpitations Gastrointestinal: no abdominal pain Neurologic: no problem reported Physical Exam Physical Exam: Currently on O2 at 1L/min NC Constitutional: not in distress Eyes: PERRL, conjunctivae normal, anicteric sclerae ENMT: external ear and nose normal, oropharynx normal Neck: trachea midline, no thyromegaly Respiratory: normal respiratory effort, lungs clear to auscultation Cardiovascular: Rate/Rhythm: regular rate Extremities: + AV fistula (+ bruit) Gastrointestinal (Abdomen): Inspection/Auscultation: normal bowel sounds Percussion/Palpation: abdomen nontender Neurologic: awake Results & Data ([facility]) Vital Signs (Past 12 Hours) Vital Signs Temp Pulse Pulse Resp BP Pulse Ox O2 Del Method 01/06/22 07:20 Nasal Cannula 01/06/22 08:21 67 90 Room Air 01/06/22 07:19 98 Nasal Cannula 01/06/22 07:11 59 L 01/06/22 07:00 36.9 C 61 20 171/78 H 98 Nasal Cannula 01/06/22 04:00 36.5 C 62 20 156/76 H 94 BiPAP 01/06/22 03:43 61 16 92 01/05/22 22:12 66 01/06/22 00:49 Nasal Cannula 01/05/22 22:29 36.7 C 60 20 154/65 H 98 Nasal Cannula 01/05/22 22:55 63 20 96 O2 Flow Rate 01/06/22 07:20 2 01/06/22 08:21 0 01/06/22 07:19 2 01/06/22 07:11 01/06/22 07:00 2 01/06/22 04:00 01/06/22 03:43 2 01/05/22 22:12 01/06/22 00:49 3 01/05/22 22:29 3 01/05/22 22:55 2 Laboratory Results Laboratory Tests 01/06/22 07:26 Sodium 137 Potassium 4.5 D Chloride 97 L Carbon Dioxide 29 BUN 52 H D Creatinine 8.54 H* D Glucose 196 H Diagnostic Findings 01/06/22 CXR: There is pulmonary vascular congestion with evidence of interstitial edema. Small pleural effusions are suspected with bibasilar opacities PG Care Time/CCT Total # of Minutes Spent Total Time Spent with Patient: Total time spent is greater than 50% in coordination of care (as documented) at patient's floor/unit and/or counseling patient: Coding Level of Care Code 33930 Subseq Hosp Care Lvl 3 Diagnoses ESRD (end stage renal disease) on dialysis N18.6; Z99.2 Acute and chronic respiratory failure with hypoxia J96.21 Anemia in chronic kidney disease N18.6; D63.1; Z99.2 Chronic kidney disease stage: on chronic dialysis Debilitated R53.81 (1) Anemia in chronic kidney disease Chronic kidney disease stage: on chronic dialysis Qualified Code(s): N18.6 - End stage renal disease; D63.1 - Anemia in chronic kidney disease; Z99.2 - Dependence on renal dialysis
--- NOTE | 2022-01-06 09:06 | XRay Report ---
SINGLE VIEW CHEST CLINICAL HISTORY: Congestive heart failure FINDINGS: An AP, portable, upright chest radiograph is compared to study dated 01/04/2022 and correlat ed with chest CT dated 06/23/2021. The examination is degraded by portable technique and apical lordot ic positioning. The heart is enlarged noting atherosclerotic calcification of the thoracic aorta. The re is pulmonary vascular congestion with evidence of interstitial edema. Small pleural effusions are suspected with bibasilar opacities. No pneumothorax is seen. The skeletal structures are osteopenic. The bony thorax is grossly intact. IMPRESSION: 1. Cardiomegaly without evidence of congestive failure and pulmonary edema. This is similar to 022. 2. Suspect small pleural effusions. ACT 112: Negative or not required by law. Electronically signed by: Rodrigo Cason M.D. 01/06/2022 9:05 AM
[2022-01-06] MEDS: SODIUM ZIRCONIUM CYCLOSILICATE 10 GM PACKET PO SCH (09:46)
[2022-01-06] MEDS: SIMVASTATIN 20 MG TAB PO SCH (22:00)
[2022-01-06] MEDS: amLODIPine BESYLATE 5 MG TAB PO SCH (22:01)
[2022-01-06] MEDS: GABAPENTIN 300 MG CAP PO SCH (22:01)
[2022-01-07] MEDS: LEVOTHYROXINE SODIUM 125 MCG TABLET PO SCH (06:47)
[2022-01-07] MEDS ORDERED: SODIUM CHLORIDE 0.9% 1000ML 1,000 ML IV PRN (07:00)
[2022-01-07] MEDS ORDERED: HEPARIN SOD (PORCINE) 1000 UNIT/ML IV ONE (07:00)
[2022-01-07] MEDS ORDERED: EPOETIN ALFA 10,000 UNITS/ML VIAL IV ONE (07:00)
[2022-01-07 07:58] LABS: Hematocrit (blood only) 28.6 % (40.1-51.0); Hemoglobin 9.3 g/dl (14.0-18.0); Mean Corpuscular Hemoglobin 32.5 pg (25.0-34.0); Mean Corpuscular Hgb Conc 32.5 g/dL (32.0-36.0); Mean Platelet Volume 10.2 fL (9.4-12.4); Platelet Count 178 K/uL (130-400); RDW Coefficient of Variation 12.1 % (11.5-14.5); RDW Standard Deviation 44.8 fL (36.4-46.3); Red Blood Count 2.86 M/uL (4.63-6.08); White Blood Count 10.68 K/ul (4.8-10.8)
[2022-01-07] MEDS: carvediloL 12.5 MG TAB PO SCH ×2 (08:18→20:36)
[2022-01-07] MEDS: INSULIN ASPART PER UNIT SC SCH ×4 (08:33→20:30)
[2022-01-07] MEDS: LANTUS PER UNIT CHARGE SQ SCH (08:34)
[2022-01-07] MEDS: LOSARTAN POTASSIUM 50 MG TAB PO SCH (08:36)
[2022-01-07] MEDS: ASPIRIN 81 MG ECTAB PO SCH (08:37)
[2022-01-07] MEDS: FUROSEMIDE 80 MG TAB PO SCH ×2 (08:37→16:51)
[2022-01-07] MEDS: HEPARIN SOD 5,000 UNIT/0.5 ML VIAL SQ SCH ×2 (08:37→20:33)
[2022-01-07] MEDS: SEVELAMER HCL 800 MG TABLET PO SCH ×3 (08:37→16:51)
[2022-01-07] MEDS: busPIRone 15 MG TAB PO SCH (08:37)
[2022-01-07] MEDS: ESCITALOPRAM OXALATE 20 MG TAB PO SCH (08:38)
[2022-01-07] MEDS: FAMOTIDINE 20 MG TAB PO SCH (08:38)
--- NOTE | 2022-01-07 08:41 | Nephrology Progress Note ---
Date of Service January 07, 2022 Assessment & Plan (1) ESRD (end stage renal disease) on dialysis: Plan: * Will provide HD today. Orders placed in EMR and HD RN notified * Weight does not appear reliable. It has not changed since admission. Will attempt 3 L UF w/ HD today * PRP in am (2) Acute and chronic respiratory failure with hypoxia: Plan: * On chronic O2 at 2L/min at home and nighttime CPAP * EMD physician reports no oxygen at home when EMS arrived. Patient is now agreeable to SNF placement. Case management exploring SNF options. (3) Anemia in chronic kidney disease: Plan: * Will provide MARILYN w/ HD today (4) Debilitated: Plan: * Poorly adherent to outpatient HD treatments, frequent hospitalizations. Patient has failed on his own. Case management is assisting w/ SNF placement. If patient choosed not to attend HD 3x/week, transition to full comfort measures may be appropriate Admission and Anticipated Discharge Date Admission Date: January 04, 2022 Subjective Mr. Patiño was evaluated in his hospital room this morning. He was breathing comfortably flat in bed on O2 at 3 L/min NC. He is anxious to leave the hospit al and smoke Review of Systems Constitutional: no fever Eyes: no worsening vision Ear, Nose, Mouth, Throat: no problem reported Respiratory: no dyspnea Cardiovascular: no chest pain and no palpitations Gastrointestinal: no abdominal pain Neurologic: no problem reported Physical Exam Physical Exam: Currently on O2 at 3 L/min NC Constitutional: + ill appearing; not in distress Eyes: PERRL, conjunctivae normal, anicteric sclerae ENMT: external ear and nose normal, oropharynx normal Neck: trachea midline, no thyromegaly Respiratory: normal respiratory effort, lungs clear to auscultation Auscultation: + rales Cardiovascular: Rate/Rhythm: regular rate Extremities: + AV fistula (+ bruit) Gastrointestinal (Abdomen): Inspection/Auscultation: normal bowel sounds Percussion/Palpation: abdomen nontender Neurologic: awake and + obtunded Results & Data ([facility]) Vital Signs (Past 12 Hours) Vital Signs Temp Pulse Pulse Resp BP Pulse Ox O2 Del Method 01/07/22 08:13 36.4 C L 51 L 20 119/68 95 CPAP 01/06/22 23:00 BiPAP 01/07/22 03:00 36.5 C 52 L 20 155/73 H 95 BiPAP 10/06/22 04:00 51 L 14 90 01/06/22 22:00 36.7 C 84 20 148/80 H 95 Nasal Cannula 01/06/22 22:43 54 L 18 96 O2 Flow Rate 01/07/22 08:13 3 01/06/22 23:00 2 01/07/22 03:00 01/07/22 04:00 4 01/06/22 22:00 2 01/06/22 22:43 2 Laboratory Results Laboratory Tests 01/07/22 07:43 WBC 10.68 Hgb 9.3 L Hct 28.6 L Plt Count 178 PG Care Time/CCT Total # of Minutes Spent Total Time Spent with Patient: Total time spent is greater than 50% in coordination of care (as documented) at patient's floor/unit and/or counseling patient: Coding Level of Care Code 74633 Subseq Hosp Care Lvl 3 Diagnoses ESRD (end stage renal disease) on dialysis N18.6; Z99.2 Acute and chronic respiratory failure with hypoxia J96.21 Anemia in chronic kidney disease N18.6; D63.1; Z99.2 Chronic kidney disease stage: on chronic dialysis Debilitated R53.81 (1) Anemia in chronic kidney disease Chronic kidney disease stage: on chronic dialysis Qualified Code(s): N18.6 - End stage renal disease; D63.1 - Anemia in chronic kidney disease; Z99.2 - Dependence on renal dialysis
--- NOTE | 2022-01-07 19:15 | Hospitalist Progress Note ---
Date of Service January 07, 2022 Assessment & Plan (1) Acute and chronic respiratory failure with hypoxia: Plan: 66yo male secondary to pulmonary edema from renal failure, pt missed outpt dialysis treatments - Metabolic encephalopathy in setting of hyperkalemia, uremia and fluid volume overload due to missed dialysis Rx, now some dimming of alertness after dialysis, will stop buspar and gabapentin reduce lexapro, follow for recurrence of possible infectious etiology -K Elevated on admission, given Sodium Zirconium Cyclosilicate. -He was given 2gm of Cefepime as well as loading dose of Vancomycin. infectious etiology ruled out - -Maintain supplemental O2 with goal saturation of >94 - 10/4 arouses transiently but does not engage in much conversation. Undergoing dialysis, oxygen requirements improving weaning down to 2 L. Per prior conversations while he has expressed a desire to stop dialysis he also does not wish to move to comfort measures o [facility] environment would likely be most beneficial if available on discharge.. (2) ESRD (end stage renal disease) on dialysis: Plan: Patient with ESRD on HD q T/R/Sat. Missed last HD treatment on 01/02 and had a partial treatment before that. Anuric Hyperkalemia resolved after dialysis and Sodium Zirconium Cyclosilicate. -Nephrology consultation appreciated and managing dialysis -Continue Sevelamer carbonate 2400mg po TID with meals (3) Hypertension: Plan: -Continue Amlodipine 10mg po qHS -Continue Carvedilol 12.5mg po BID -Continue Losartan 50mg po daily (4) GERD (gastroesophageal reflux disease): Plan: Chronic -Pepcid while inpatient (5) Current smoker: Plan: Patient offered nicotine patch as he refuses family will bring in nicotine chewing pouches that he can use. He still wishes to go outside and smoke which he was refused (6) Depression: Plan: Chronic -Continue Buspirone -Continue Escitalopram (7) Hypothyroidism: Plan: Chronic. -TSH normal at 0.546 on 12/22/21 -Continue Synthroid (8) DM type 2 (diabetes mellitus, type 2): Plan: Chronic. Last A1C on 08/05/21 = 6.5 -Continue Lantus 15u daily -ISS -Goal blood sugar 110 - 140 -Continue Gabapentin Ppx - Heparin Code - DNR/DNI Admission and Anticipated Discharge Date Admission Date: January 04, 2022 Subjective Patient's family did see him after dialysis they feel he is little more stuporous than usual after dialysis. He is on some medications that have been started based on his home med rec that could be adding to this problem these include BuSpar and gabapentin. Subsequently we will hold these cautiously and we will reduce his Lexapro dose to 10 he has not with abnormal vital signs or fever he does not typically make lots of urine his initial blood cultures are negative subsequently I feel this may be more medication effect or toxic encephalopathy than a metabolic encephalopathy however we will keep surveillance on him Review of Systems Review of Systems: Moderate distress and fatigue no headache, no visual changes no speech or swallowing issues no chest pain, pressure or palpitations Exertional shortness of breath, cough or wheezes no abdominal pain, nausea or vomiting, diarrhea or constipation no dysuria, hematuria or frequency no focal joint pain does have significant peripheral swelling no back pain, CVA tenderness or radicular pain no bruising, bleeding or rashes no focal signs of weakness or numbness he is slightly more lethargic but this is post dialysis day no complaints of anxiety or depression.. Physical Exam Physical Exam: The patient appeared chronically ill and debilitated he was seen in dialysis and was slightly sleepy Vital signs as documented. Head exam is normocephalic atraumatic Neck is without JVD, thyromegaly, or carotid bruits. Lungs are clear to auscultation diminished at the bases Cardiac exam, Rhythm is regular.. No murmurs, rubs or gallops. Abdominal exam reveals normal bowel sounds, soft non tender, no masses Extremities are 1+ 2+ edematous and both pedal pulses are present Neurologic exam is alert and oriented x2, no focal loss of strength or sensation he is extremely hard of hearing Skin is without bruises or rashes Psychologically is without concerns for anxiety or depression.. Results & Data Results & Data ([facility]) Vital Signs (Past 12 Hours) Vital Signs Temp Pulse Pulse Resp BP BP Pulse Ox 01/07/22 15:42 98.1 F 53 L 20 174/79 H 98 01/07/22 14:56 52 L 138/53 L 01/07/22 15:00 98.4 F 56 L 136/71 01/07/22 14:30 54 L 140/63 01/07/22 14:00 52 L 130/59 L 01/07/22 13:30 52 L 137/58 L 10/06/22 13:00 52 L 148/68 H 01/07/22 12:30 51 L 133/67 01/07/22 12:00 52 L 131/62 01/07/22 11:45 53 L 118/59 L 01/07/22 11:30 53 L 118/59 L 01/07/22 11:15 49 L 119/55 L 01/07/22 11:00 52 L 134/65 01/07/22 10:43 52 L 129/68 01/07/22 10:30 99.7 F H 51 L 01/07/22 10:48 01/07/22 08:13 97.5 F L 51 L 20 119/68 95 O2 Del Method O2 Flow Rate 01/07/22 15:42 Nasal Cannula 3 01/07/22 14:56 01/07/22 15:00 01/07/22 14:30 01/07/22 14:00 01/07/22 13:30 01/07/22 13:00 01/07/22 12:30 01/07/22 12:00 01/07/22 11:45 01/07/22 11:30 01/07/22 11:15 01/07/22 11:00 01/07/22 10:43 01/07/22 10:30 01/07/22 10:48 Nasal Cannula 2 01/07/22 08:13 CPAP 3 PG Care Time/CCT Total # of Minutes Spent Total Time Spent with Patient: Total time spent is greater than 50% in coordination of care (as documented) at patient's floor/unit and/or counseling patient: Coding Level of Care Code 76284 Subseq Hosp Care Lvl 3 Diagnoses Acute and chronic respiratory failure with hypoxia J96.21 ESRD (end stage renal disease) on dialysis N18.6; Z99.2 Hypertension I10 Hypertension type: essential hypertension GERD (gastroesophageal reflux disease) K21.9 Current smoker F17.200 Depression F32.9 Depression Type: unspecified Hypothyroidism E03.9 Hypothyroidism type: unspecified DM type 2 (diabetes mellitus, type 2) E11.9 (1) Hypertension Hypertension type: essential hypertension Qualified Code(s): I10 - Essential (primary) hypertension (2) Depression Depression Type: unspecified Qualified Code(s): F32.9 - Major depressive disorder, single episode, unspecified (3) Hypothyroidism Hypothyroidism type: unspecified Qualified Code(s): E03.9 - Hypothyroidism, unspecified
[2022-01-07] MEDS: SIMVASTATIN 20 MG TAB PO SCH (20:37)
[2022-01-07] MEDS: amLODIPine BESYLATE 5 MG TAB PO SCH (20:38)
[2022-01-08] MEDS: HEPARIN SOD 5,000 UNIT/0.5 ML VIAL SQ SCH ×3 (06:07→22:20)
[2022-01-08] MEDS: LEVOTHYROXINE SODIUM 125 MCG TABLET PO SCH (06:08)
[2022-01-08 07:09] LABS: BUN Creatinine Ratio 5.6 (10-20); Calcium 8.7 mg/dl (8.5-10.1); Creatinine Clr Calc Pharmacy 14.2 ml/min; Est GFR (African American) 8.4 ml/min; Est GFR (Non-African American) 7.3 ml/min; Potassium 4.1 mmol/L (3.5-5.1)
[2022-01-08] MEDS: INSULIN ASPART PER UNIT SC SCH ×4 (08:00→20:18)
[2022-01-08] MEDS: FAMOTIDINE 20 MG TAB PO SCH (08:01)
[2022-01-08] MEDS: ESCITALOPRAM OXALATE 10 MG TAB PO SCH (08:01)
[2022-01-08] MEDS: carvediloL 12.5 MG TAB PO SCH ×2 (08:02→20:21)
[2022-01-08] MEDS: FUROSEMIDE 80 MG TAB PO SCH ×2 (08:02→16:58)
[2022-01-08] MEDS: LANTUS PER UNIT CHARGE SQ SCH (08:02)
[2022-01-08] MEDS: SEVELAMER HCL 800 MG TABLET PO SCH ×3 (08:02→16:58)
[2022-01-08] MEDS: ASPIRIN 81 MG ECTAB PO SCH (08:02)
[2022-01-08] MEDS: LOSARTAN POTASSIUM 50 MG TAB PO SCH (08:02)
--- NOTE | 2022-01-08 08:46 | Nephrology Progress Note ---
Date of Service January 08, 2022 Assessment & Plan (1) ESRD (end stage renal disease) on dialysis: Plan: * Volume status and electrolyte balance are acceptable. No acute indication for HD today * CXR shows marked improvement in pulmonary vascular congestion * Will schedule next HD for am and attempt 3 L UF (2) Acute and chronic respiratory failure with hypoxia: Plan: * On chronic O2 at 2L/min at home and nighttime CPAP * EMD physician reports no oxygen at home when EMS arrived. Patient is now agreeable to SNF placement. Case management exploring SNF options. Probable transfer to [facility] early next week (3) Anemia in chronic kidney disease: Plan: * Will provide MARILYN w/ HD tomorrow (4) Debilitated: Plan: * Poorly adherent to outpatient HD treatments, frequent hospitalizations. Patient has failed on his own. Case management is assisting w/ SNF placement. If patient choosed not to attend HD 3x/week, transition to full comfort measures may be appropriate Admission and Anticipated Discharge Date Admission Date: January 04, 2022 Subjective Mr. Patiño was evaluated in his hospital room this morning. He was breathing comfortably flat in bed on O2 at 2 L/min NC. He voiced no new medical concerns Review of Systems Constitutional: no fever Eyes: no worsening vision Ear, Nose, Mouth, Throat: no problem reported Respiratory: no dyspnea Cardiovascular: no chest pain and no palpitations Gastrointestinal: no abdominal pain Neurologic: no problem reported Physical Exam Physical Exam: Currently on O2 at 2 L/min NC Constitutional: + ill appearing; not in distress Eyes: PERRL, conjunctivae normal, anicteric sclerae ENMT: external ear and nose normal, oropharynx normal Neck: trachea midline, no thyromegaly Respiratory: normal respiratory effort, lungs clear to auscultation Auscultation: + rales Cardiovascular: Rate/Rhythm: regular rate Extremities: + AV fistula (+ bruit) Gastrointestinal (Abdomen): Inspection/Auscultation: normal bowel sounds Percussion/Palpation: abdomen nontender Neurologic: awake and + obtunded Results & Data ([facility]) Vital Signs (Past 12 Hours) Vital Signs Temp Pulse Pulse Resp BP Pulse Ox O2 Del Method 01/08/22 07:27 Nasal Cannula 01/08/22 07:18 60 01/08/22 06:29 36.7 C 56 L 18 160/73 H 86 L Room Air 01/08/22 03:28 37 C 64 18 151/64 H 94 Nasal Cannula 01/07/22 23:06 36.9 C 62 18 159/68 H 92 Nasal Cannula 01/07/22 22:20 62 20 96 01/07/22 22:50 Nasal Cannula 01/07/22 22:46 60 O2 Flow Rate 01/08/22 07:27 2 01/08/22 07:18 01/08/22 06:29 01/08/22 03:28 2 01/07/22 23:06 2 01/07/22 22:20 2 01/07/22 22:50 2 01/07/22 22:46 Laboratory Results Laboratory Tests 01/08/22 06:09 Sodium 136 Potassium 4.1 Chloride 98 Carbon Dioxide 27 BUN 40 H Creatinine 7.14 H* D Glucose 142 H Calcium 8.7 PG Care Time/CCT Total # of Minutes Spent Total Time Spent with Patient: Total time spent is greater than 50% in coordination of care (as documented) at patient's floor/unit and/or counseling patient: Coding Level of Care Code 97877 Subseq Hosp Care Lvl 3 Diagnoses ESRD (end stage renal disease) on dialysis N18.6; Z99.2 Acute and chronic respiratory failure with hypoxia J96.21 Anemia in chronic kidney disease N18.6; D63.1; Z99.2 Chronic kidney disease stage: on chronic dialysis Debilitated R53.81 (1) Anemia in chronic kidney disease Chronic kidney disease stage: on chronic dialysis Qualified Code(s): N18.6 - End stage renal disease; D63.1 - Anemia in chronic kidney disease; Z99.2 - Dependence on renal dialysis
[2022-01-08] MEDS ORDERED: PIPERACILLIN/TAZOBACTAM 4.5 GM in DEXTROSE 5% 100 ML IV ONE (09:00)
--- NOTE | 2022-01-08 12:46 | XRay Report ---
SINGLE VIEW CHEST CLINICAL HISTORY: Congestive heart failure FINDINGS: An AP, portable, upright chest radiograph is compared to study dated 06/23/2021 and correlat ed with chest CT dated 06/23/2021. The examination is degraded by portable technique, patient rotation , and apical lordotic positioning. The heart is enlarged noting atherosclerotic calcification of the thoracic aorta. There is pulmonary vascular congestion with evidence of interstitial edema. Small ple ural effusions are suspected with left greater than right bibasilar opacities. No pneumothorax is see n. The skeletal structures are osteopenic. The bony thorax is grossly intact. IMPRESSION: 1. Cardiomegaly with evidence of congestive failure and pulmonary edema. This is similar to 01/06/2022 . 2. Suspect small pleural effusion with left greater than right bibasilar opacities. ACT 112: Negative or not required by law. Electronically signed by: Rodrigo Cason M.D. 01/08/2022 12:44 PM
[2022-01-08] MEDS: PIPERACILLIN/TAZOBACTAM 4.5 GM in DEXTROSE 5% 100 ML IV SCH ×2 (14:06→22:20)
--- NOTE | 2022-01-08 17:02 | Hospitalist Progress Note ---
Date of Service January 08, 2022 Assessment & Plan (1) Acute and chronic respiratory failure with hypoxia: Plan: 66yo male secondary to pulmonary edema from renal failure, pt missed outpt dialysis treatments - Metabolic encephalopathy in setting of hyperkalemia, uremia and fluid volume overload due to missed dialysis Rx, postdialysis reduction of of alertness did stop buspar and gabapentin reduce lexapro, follow for recurrence of possible infectious etiology, chest x-ray looks improved with no signs of pneumonia this could be postdialysis or toxic encephalopathy from medications -K Elevated on admission, given Sodium Zirconium Cyclosilicate. -He was given 2gm of Cefepime as well as loading dose of Vancomycin. infectious etiology ruled out antibiotics not continued at this time - -Maintain supplemental O2 with goal saturation of >94 - oxygen requirements improving weaning down to 2-3 L. 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 Missed last HD treatment on 01/02 and had a partial treatment before that. Anuric Hyperkalemia resolved after dialysis and Sodium Zirconium Cyclosilicate. -Nephrology consultation appreciated and managing dialysis -Continue Sevelamer carbonate 2400mg po TID with meals (3) Hypertension: Plan: -Continue Amlodipine 10mg po qHS -Continue Carvedilol 12.5mg po BID -Continue Losartan 50mg po daily (4) GERD (gastroesophageal reflux disease): Plan: Chronic -Pepcid while inpatient (5) Current smoker: Plan: Patient offered nicotine patch as he refuses family will bring in nicotine chewing pouches that he can use. He still wishes to go outside and smoke which he was refused (6) Depression: Plan: Chronic -Continue Buspirone -Continue Escitalopram (7) Hypothyroidism: Plan: Chronic. -TSH normal at 0.546 on 12/22/21 -Continue Synthroid (8) DM type 2 (diabetes mellitus, type 2): Plan: Chronic. Last A1C on 08/05/21 = 6.5 -Continue Lantus 15u daily -ISS -Goal blood sugar 110 - 140 -Continue Gabapentin Ppx - Heparin Code - DNR/DNI Admission and Anticipated Discharge Date Admission Date: January 04, 2022 Subjective Patient is in good spirits today. Concerns of his family postdialysis symptoms resolved as he is much better today however we did stop BuSpar reduce Lexapro and reduce gabapentin. We will continue to follow to see if patient misses these medications in regards to his symptom control Review of Systems Review of Systems: Mild distress and fatigue no headache, no visual changes no speech or swallowing issues no chest pain, pressure or palpitations Exertional shortness of breath, cough or wheezes no abdominal pain, nausea or vomiting, diarrhea or constipation no dysuria, hematuria or frequency Contractures of his left hand inability to ambulate with functional paraplegia no back pain, CVA tenderness or radicular pain no bruising, bleeding or rashes no focal signs of weakness or numbness or altered sensation no complaints of anxiety or depression.. Physical Exam Physical Exam: The patient appeared chronically ill and debilitated is much less sleepy today Vital signs as documented. Head exam is normocephalic atraumatic Neck is without JVD, thyromegaly, or carotid bruits. Lungs are clear to auscultation diminished at the bases Cardiac exam, Rhythm is regular.. No murmurs, rubs or gallops. Abdominal exam reveals normal bowel sounds, soft non tender, no masses Extremities are 1+ 2+ edematous and both pedal pulses are present left hand has contractures Neurologic exam is alert and oriented x2, no focal loss of strength or sensation he is extremely hard of hearing Skin is without bruises or rashes Psychologically is without concerns for anxiety or depression.. Results & Data Results & Data ([facility]) Vital Signs (Past 12 Hours) Vital Signs Temp Pulse Pulse Resp BP Pulse Ox O2 Del Method 01/08/22 14:47 54 L 01/08/22 14:45 98.4 F 55 L 18 135/66 90 Nasal Cannula 01/08/22 10:00 98.2 F 55 L 18 139/53 L 92 Nasal Cannula 01/08/22 07:27 Nasal Cannula 01/08/22 07:18 60 01/08/22 06:29 98.1 F 56 L 18 160/73 H 86 L Room Air O2 Flow Rate 01/08/22 14:47 01/08/22 14:45 3 01/08/22 10:00 3 01/08/22 07:27 2 01/08/22 07:18 01/08/22 06:29 PG Care Time/CCT Total # of Minutes Spent Total Time Spent with Patient: Total time spent is greater than 50% in coordination of care (as documented) at patient's floor/unit and/or counseling patient: Coding Level of Care Code 47947 Subseq Hosp Care Lvl 2 Diagnoses Acute and chronic respiratory failure with hypoxia J96.21 ESRD (end stage renal disease) on dialysis N18.6; Z99.2 Hypertension I10 Hypertension type: essential hypertension GERD (gastroesophageal reflux disease) K21.9 Current smoker F17.200 Depression F32.9 Depression Type: unspecified Hypothyroidism E03.9 Hypothyroidism type: unspecified DM type 2 (diabetes mellitus, type 2) E11.9 (1) Hypertension Hypertension type: essential hypertension Qualified Code(s): I10 - Essential (primary) hypertension (2) Depression Depression Type: unspecified Qualified Code(s): F32.9 - Major depressive disorder, single episode, unspecified (3) Hypothyroidism Hypothyroidism type: unspecified Qualified Code(s): E03.9 - Hypothyroidism, unspecified
[2022-01-08] MEDS: amLODIPine BESYLATE 5 MG TAB PO SCH (20:16)
[2022-01-08] MEDS: SIMVASTATIN 20 MG TAB PO SCH (20:17)
[2022-01-09] MEDS: HEPARIN SOD 5,000 UNIT/0.5 ML VIAL SQ SCH ×3 (06:00→21:37)
[2022-01-09] MEDS: LEVOTHYROXINE SODIUM 125 MCG TABLET PO SCH (06:00)
[2022-01-09] MEDS: PIPERACILLIN/TAZOBACTAM 4.5 GM in DEXTROSE 5% 100 ML IV SCH ×2 (06:04→18:20)
[2022-01-09] MEDS ORDERED: SODIUM CHLORIDE 0.9% 1000ML 1,000 ML IV PRN (07:00)
[2022-01-09] MEDS ORDERED: HEPARIN SOD (PORCINE) 1000 UNIT/ML IV ONE (07:00)
--- NOTE | 2022-01-09 07:20 | Hospitalist Progress Note ---
Date of Service January 09, 2022 Assessment & Plan (1) Acute and chronic respiratory failure with hypoxia: Plan: 66yo male secondary to pulmonary edema from renal failure, pt missed outpt dialysis treatments - Metabolic encephalopathy in setting of hyperkalemia, uremia and fluid volume overload due to missed dialysis Rx, postdialysis 01/07 reduction of of alertness did stop buspar and gabapentin reduce lexapro, follow for recurrence of possible infectious etiology, chest x- ray looks improved with no signs of pneumonia this could be postdialysis or toxic encephalopathy from medications -K Elevated on admission, given Sodium Zirconium Cyclosilicate. -He was given 2gm of Cefepime as well as loading dose of Vancomycin. infectious etiology ruled out antibiotics not continued at this time - -Maintain supplemental O2 with goal saturation of >94 - oxygen requirements improving weaning down to 2-3 L. 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 Missed last HD treatment on 01/02 and had a partial treatment before that. Anuric Hyperkalemia resolved after dialysis and Sodium Zirconium Cyclosilicate. -Nephrology consultation appreciated and managing dialysis -Continue Sevelamer carbonate 2400mg po TID with meals (3) Hypertension: Plan: -Continue Amlodipine 10mg po qHS -Continue Carvedilol 12.5mg po BID -Continue Losartan 50mg po daily (4) GERD (gastroesophageal reflux disease): Plan: Chronic -Pepcid while inpatient (5) Current smoker: Plan: Patient offered nicotine patch as he refuses family will bring in nicotine chewi ng pouches that he can use. He still wishes to go outside and smoke which he was refused (6) Depression: Plan: Chronic -Continue Buspirone -Continue Escitalopram (7) Hypothyroidism: Plan: Chronic. -TSH normal at 0.546 on 12/22/21 -Continue Synthroid (8) DM type 2 (diabetes mellitus, type 2): Plan: Chronic. Last A1C on 08/05/21 = 6.5 -Continue Lantus 15u daily -ISS -Goal blood sugar 110 - 140 -Continue Gabapentin Ppx - Heparin Code - DNR/DNI Admission and Anticipated Discharge Date Admission Date: January 04, 2022 Subjective pt was seen during dialysis no focal complaints Denies shortness of breath, dizziness or lightheadedness. 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 Physical Exam Physical Exam: The patient appeared chronically ill and debilitated is much less sleepy today Vital signs as documented. Head exam is normocephalic atraumatic Neck is without JVD, thyromegaly, or carotid bruits. Lungs are clear to auscultation diminished at the bases Cardiac exam, Rhythm is regular.. No murmurs, rubs or gallops. Abdominal exam reveals normal bowel sounds, soft non tender, no masses Extremities are 1+ 2+ edematous and both pedal pulses are present left hand has contractures Neurologic exam is alert and oriented x2, no focal loss of strength or sensation he is extremely hard of hearing Skin is without bruises or rashes Psychologically is without concerns for anxiety or depression.. Results & Data Results & Data ([facility]) Vital Signs (Past 12 Hours) Vital Signs Temp Pulse Pulse Resp BP Pulse Ox O2 Del Method 01/08/22 22:20 59 L 01/09/22 03:13 97.5 F L 55 L 20 145/68 H 94 Nasal Cannula 01/08/22 20:30 Nasal Cannula 01/08/22 22:25 97.9 F 58 L 20 167/78 H 98 Nasal Cannula O2 Flow Rate 01/08/22 22:20 01/09/22 03:13 2 01/08/22 20:30 3 01/08/22 22:25 3 PG Care Time/CCT Total # of Minutes Spent Total Time Spent with Patient: Total time spent is greater than 50% in coordination of care (as documented) at patient's floor/unit and/or counseling patient: Coding Level of Care Code 26884 Subseq Hosp Care Lvl 2 Diagnoses Acute and chronic respiratory failure with hypoxia J96.21 ESRD (end stage renal disease) on dialysis N18.6; Z99.2 Hypertension I10 Hypertension type: essential hypertension GERD (gastroesophageal reflux disease) K21.9 Current smoker F17.200 Depression F32.9 Depression Type: unspecified Hypothyroidism E03.9 Hypothyroidism type: unspecified DM type 2 (diabetes mellitus, type 2) E11.9 (1) Depression Depression Type: unspecified Qualified Code(s): F32.9 - Major depressive disorder, single episode, unspecified (2) Hypothyroidism Hypothyroidism type: unspecified Qualified Code(s): E03.9 - Hypothyroidism, unspecified (3) Hypertension Hypertension type: essential hypertension Qualified Code(s): I10 - Essential (primary) hypertension
[2022-01-09] MEDS: ASPIRIN 81 MG ECTAB PO SCH (08:26)
[2022-01-09] MEDS: LOSARTAN POTASSIUM 50 MG TAB PO SCH (08:26)
[2022-01-09] MEDS: FAMOTIDINE 20 MG TAB PO SCH (08:27)
[2022-01-09] MEDS: ESCITALOPRAM OXALATE 10 MG TAB PO SCH (08:27)
[2022-01-09] MEDS: SEVELAMER HCL 800 MG TABLET PO SCH ×3 (08:27→16:55)
[2022-01-09] MEDS: FUROSEMIDE 80 MG TAB PO SCH ×2 (08:27→16:55)
[2022-01-09] MEDS: carvediloL 12.5 MG TAB PO SCH ×2 (08:31→19:58)
[2022-01-09] MEDS: INSULIN ASPART PER UNIT SC SCH ×4 (08:35→21:37)
[2022-01-09] MEDS: LANTUS PER UNIT CHARGE SQ SCH (08:36)
--- NOTE | 2022-01-09 10:32 | Nephrology Progress Note ---
Date of Service January 09, 2022 Assessment & Plan (1) ESRD (end stage renal disease) on dialysis: (2) Hypertension: (3) DM type 2 (diabetes mellitus, type 2): (4) Acute hyperkalemia: (5) Pulmonary edema: (6) Anemia in chronic kidney disease: Plan 66-year-old male with ESRD on hemodialysis, admitted with missed dialysis, volume overload and hyperkalemia requiring urgent dialysis. Has been having regular dialysis with improvement in volume status and getting close to estima elroy dry weight. -- Tolerating dialysis, UF as tolerated with goal to estimated dry weight. -- Avoid IV fluid, dose medications for GFR less than 10, left arm nephrology precaution. -- Low-potassium diet, fluid restriction to less than 1 L per day -- discussed about the importance of compliance with regular dialysis treatment to avoid repeated hospitalization, respiratory failure and cardiac complication. will follow Admission and Anticipated Discharge Date Admission Date: January 04, 2022 Subjective Bill was seen during dialysis this morning, otherwise comfortable, resting, tolerating dialysis well. Denies shortness of breath, dizziness or lightheadedness. Blood pressure was stable, tolerating ultrafiltration. Electrolyte has been acceptable. Review of Systems Review of Systems: Detailed review of system was otherwise unremarkable. Physical Exam Constitutional: WD/WN, vitals as above + morbidly obese; no acute distress Eyes: + anicteric sclerae Neck: normal visual inspection Respiratory: Auscultation: lungs clear to auscultation bilaterally Cardiovascular: Rate/Rhythm: regular rate and regular rhythm Heart Sounds: normal S1 and normal S2 Extremities: + AV fistula ( Left brachiocephalic AV fistula with thrill and bruit); no edema Skin: no rashes Neurologic: no focal motor deficits Psychiatric: Orientation: alert and oriented x 3 Results & Data ([facility]) Vital Signs (Past 12 Hours) Vital Signs Temp Pulse Pulse Resp BP Pulse Ox O2 Del Method 01/09/22 09:26 36.7 C 54 L 01/09/22 08:32 36.5 C 61 19 139/69 91 Room Air 01/09/22 03:13 36.4 C L 55 L 20 145/68 H 94 Nasal Cannula O2 Flow Rate 01/09/22 09:26 01/09/22 08:32 01/09/22 03:13 2 PG Care Time/CCT Total # of Minutes Spent Total Time Spent with Patient: Total time spent is greater than 50% in coordination of care (as documented) at patient's floor/unit and/or counseling patient: Coding Level of Care Code 01154 Subseq Hosp Care Lvl 3 Diagnoses ESRD (end stage renal disease) on dialysis N18.6; Z99.2 Hypertension I10 Hypertension type: essential hypertension DM type 2 (diabetes mellitus, type 2) E11.9 Acute hyperkalemia E87.5 Pulmonary edema J81.0 Chronicity: acute Anemia in chronic kidney disease N18.6; D63.1; Z99.2 Chronic kidney disease stage: on chronic dialysis (1) Hypertension Hypertension type: essential hypertension Qualified Code(s): I10 - Essential (primary) hypertension (2) Pulmonary edema Chronicity: acute Qualified Code(s): J81.0 - Acute pulmonary edema (3) Anemia in chronic kidney disease Chronic kidney disease stage: on chronic dialysis Qualified Code(s): N18.6 - End stage renal disease; D63.1 - Anemia in chronic kidney disease; Z99.2 - Dependence on renal dialysis
[2022-01-09] MEDS: HEPARIN SOD (PORCINE) 1000 UNIT/ML IV SCH ×2 (10:57→12:06)
[2022-01-09 14:51] LABS: HBSAG NON-REACTIVE (NON-REACTIVE); Hepatitis A Antibody IgM NON-REACTIVE (NON-REACTIVE); Hepatitis B Core Antibody IgM NON-REACTIVE (NON-REACTIVE)
[2022-01-09] MEDS: SIMVASTATIN 20 MG TAB PO SCH (19:57)
[2022-01-09] MEDS: amLODIPine BESYLATE 5 MG TAB PO SCH (19:57)
[2022-01-10] MEDS: PIPERACILLIN/TAZOBACTAM 4.5 GM in DEXTROSE 5% 100 ML IV SCH ×2 (06:26→17:44)
[2022-01-10] MEDS: HEPARIN SOD 5,000 UNIT/0.5 ML VIAL SQ SCH ×3 (06:26→21:55)
[2022-01-10] MEDS: LEVOTHYROXINE SODIUM 125 MCG TABLET PO SCH (06:26)
[2022-01-10 07:18] LABS: Hematocrit (blood only) 30.6 % (40.1-51.0); Hemoglobin 10.3 g/dl (14.0-18.0); Mean Corpuscular Hemoglobin 33.4 pg (25.0-34.0); Mean Corpuscular Hgb Conc 33.7 g/dL (32.0-36.0); Mean Corpuscular Volume 99.4 fL (80.0-100.0); Mean Platelet Volume 10.1 fL (9.4-12.4); Platelet Count 240 K/uL (130-400); RDW Coefficient of Variation 12.6 % (11.5-14.5); RDW Standard Deviation 43.7 fL (36.4-46.3); Red Blood Count 3.08 M/uL (4.63-6.08); White Blood Count 11.24 K/ul (4.8-10.8)
[2022-01-10] MEDS: ASPIRIN 81 MG ECTAB PO SCH (08:55)
[2022-01-10] MEDS: ESCITALOPRAM OXALATE 10 MG TAB PO SCH (08:55)
[2022-01-10] MEDS: SEVELAMER HCL 800 MG TABLET PO SCH ×3 (08:56→17:35)
[2022-01-10] MEDS: LOSARTAN POTASSIUM 50 MG TAB PO SCH (08:56)
[2022-01-10] MEDS: FAMOTIDINE 20 MG TAB PO SCH (08:56)
[2022-01-10] MEDS: carvediloL 12.5 MG TAB PO SCH ×2 (08:56→21:52)
[2022-01-10] MEDS: FUROSEMIDE 80 MG TAB PO SCH ×2 (08:56→17:36)
[2022-01-10] MEDS: INSULIN ASPART PER UNIT SC SCH ×4 (09:01→21:53)
[2022-01-10] MEDS: LANTUS PER UNIT CHARGE SQ SCH (09:02)
--- NOTE | 2022-01-10 11:48 | Nephrology Progress Note ---
Date of Service January 10, 2022 Assessment & Plan (1) ESRD (end stage renal disease) on dialysis: (2) Hypertension: (3) DM type 2 (diabetes mellitus, type 2): (4) Acute hyperkalemia: (5) Pulmonary edema: (6) Anemia in chronic kidney disease: Plan 66-year-old male with ESRD on hemodialysis, admitted with missed dialysis, volume overload and hyperkalemia requiring urgent dialysis. Has been having regular dialysis with improvement in volume status and getting close to estim ed dry weight. Had dialysis yesterday, uneventful, currently volume status, electrolyte, blood pressure acceptable. -- Avoid IV fluid, dose medications for GFR less than 10, left arm nephrology precaution. -- Low-potassium diet, fluid restriction to less than 1 L per day -- discussed about the importance of compliance with regular dialysis treatment to avoid repeated hospitalization, respiratory failure and cardiac complication. will follow Admission and Anticipated Discharge Date Admission Date: January 04, 2022 Keyur Lowery was seen and examined this morning. Overall he feels well, denies any shortness of breath or chest pain. Had dialysis yesterday, tolerated well. Volume status, blood pressure acceptable. Review of Systems Review of Systems: Detailed review of system was otherwise unremarkable. Physical Exam Constitutional: WD/WN, vitals as above + morbidly obese; no acute distress Eyes: + anicteric sclerae Neck: normal visual inspection Respiratory: Auscultation: lungs clear to auscultation bilaterally Cardiovascular: Rate/Rhythm: regular rate and regular rhythm Heart Sounds: normal S1 and normal S2 Extremities: + AV fistula ( Left brachiocephalic AV fistula with thrill and bruit); no edema Skin: no rashes Neurologic: no focal motor deficits Psychiatric: Orientation: alert and oriented x 3 Results & Data ([facility]) Vital Signs (Past 12 Hours) Vital Signs Temp Pulse Resp BP Pulse Ox O2 Del Method O2 Flow Rate 01/10/22 11:05 36.4 C L 59 L 20 150/65 H 95 Nasal Cannula 3 01/10/22 07:49 36.8 C 63 18 157/53 H 99 Nasal Cannula 3 01/10/22 03:03 36.7 C 60 19 154/60 H 98 Nasal Cannula 2 PG Care Time/CCT Total # of Minutes Spent Total Time Spent with Patient: Total time spent is greater than 50% in coordination of care (as documented) at patient's floor/unit and/or counseling patient: Coding Level of Care Code 28631 Subseq Hosp Care Lvl 2 Diagnoses ESRD (end stage renal disease) on dialysis N18.6; Z99.2 Hypertension I10 Hypertension type: essential hypertension DM type 2 (diabetes mellitus, type 2) E11.9 Acute hyperkalemia E87.5 Pulmonary edema J81.0 Chronicity: acute Anemia in chronic kidney disease N18.6; D63.1; Z99.2 Chronic kidney disease stage: on chronic dialysis (1) Hypertension Hypertension type: essential hypertension Qualified Code(s): I10 - Essential (primary) hypertension (2) Pulmonary edema Chronicity: acute Qualified Code(s): J81.0 - Acute pulmonary edema (3) Anemia in chronic kidney disease Chronic kidney disease stage: on chronic dialysis Qualified Code(s): N18.6 - End stage renal disease; D63.1 - Anemia in chronic kidney disease; Z99.2 - Dependence on renal dialysis
--- NOTE | 2022-01-10 16:06 | Hospitalist Progress Note ---
Date of Service January 10, 2022 Assessment & Plan (1) Acute and chronic respiratory failure with hypoxia: Plan: 66yo male secondary to pulmonary edema from renal failure, pt missed outpt dialysis treatments. Initially POx in the 60s. Typically uses 2LNC continuously at home and CPAP at nighttime. Long history of smoking Acute Metabolic encephalopathy in setting of hyperkalemia, uremia and fluid volume overload due to missed dialysis Rx, hypoxic event (came in with POx 60s)--> not resolved yet-remains confused and not at his baseline Postdialysis 01/07 reduction of of alertness did stop buspar and gabapentin, reduced lexapro, follow for recurrence of possible infectious etiology, chest x- ray looks improved with no signs of pneumonia this could be postdialysis or toxic encephalopathy from medications. However, given leukocytosis and ongoing encephalopathy--> was started back on IV antivbioics for pNA with Zosyn on 01/08 With concern for gabapentin withdrawal, would restart gabapentin at lower dose of 100mg hs -He was given 2gm of Cefepime as well as loading dose of Vancomycin. 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 Missed last HD treatment on 01/02 and had a partial treatment before that. Anuric Traditionally has been noncompliant with HD due to issues with transportation and poor motivation to go to HD. Hyperkalemia resolved after dialysis and Sodium Zirconium Cyclosilicate. -Nephrology consultation appreciated and managing dialysis -Continue Sevelamer carbonate 2400mg po TID with meals -follow BMP in AM (3) Acute metabolic encephalopathy: Plan: as above (4) Hypertension: Plan: BPs mildly elevated -Continue Amlodipine 10mg po qHS -Continue Carvedilol 12.5mg po BID -Continue Losartan 50mg po daily -continue lasix (5) GERD (gastroesophageal reflux disease): Plan: Chronic -Pepcid (6) Current smoker: Plan: Patient offered nicotine patch as he refuses family will bring in nicotine chewing pouches that he can use. He still wishes to go outside and smoke which he was refused yet again (7) Depression: Plan: Chronic Buspirone stopped as above due to encephalopathy -Continue Escitalopram but dose reduced to 10mg (8) Hypothyroidism: Plan: Chronic. -TSH normal at 0.546 on 12/22/21 -Continue Synthroid (9) DM type 2 (diabetes mellitus, type 2): Plan: Chronic. 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 Denies problems. Asks if he can be wheeled outside for a smoke. Wants to know what day it is. Asking if he can see his home health nurses and aides once he goes to SNF. Says he wears CPAP at home but RN reports he has been refusing it here. Review of Systems Review of Systems: All systems reviewed & are unremarkable except as noted in HPI & below Physical Exam Constitutional: WD/WN, vitals as above + morbidly obese Eyes: + anicteric sclerae Neck: trachea midline, no thyromegaly Respiratory: normal respiratory effort, lungs clear to auscultation Cardiovascular: Rate/Rhythm: regular rate and regular rhythm Extremities: + edema (trace pitting edema legs) Chest (Breasts): Chest: normal inspection of chest Gastrointestinal (Abdomen): normal bowel sounds, soft, nontender, no hepatosplenomegaly Musculoskeletal: Extremities: extremities normal to inspection; no cyanosis and no clubbing Skin: no rashes, warm and dry Neurologic: moves all extremities and awake; no focal motor deficits Psychiatric: Orientation: alert, oriented to person, oriented to place and cooperative; + not oriented to time Lymphatic: no lymphedema Results & Data Results & Data ([facility]) Vital Signs (Past 12 Hours) Vital Signs Temp Pulse Pulse Resp BP Pulse Ox O2 Del Method 01/10/22 07:30 63 01/10/22 11:05 36.4 C L 59 L 20 150/65 H 95 Nasal Cannula 01/10/22 07:49 36.8 C 63 18 157/53 H 99 Nasal Cannula O2 Flow Rate 01/10/22 07:30 01/10/22 11:05 3 01/10/22 07:49 3 Laboratory Results 01/10/22 01/10/22 01/10/22 Range/Units 11:42 07:30 06:29 WBC 11.24 H (4.8-10.8) K/ul RBC 3.08 L (4.63-6.08) M/uL Hgb 10.3 L (14.0-18.0) g/dl Hct 30.6 L (40.1-51.0) % MCV 99.4 (80.0-100.0) fL MCH 33.4 (25.0-34.0) pg MCHC 33.7 (32.0-36.0) g/dL RDW Std Deviation 43.7 (36.4-46.3) fL RDW Coeff of Jorge A 12.6 (11.5-14.5) % Plt Count 240 (130-400) K/uL MPV 10.1 (9.4-12.4) fL POC Glucose 144 H 143 H (70-99) mg/dl 01/09/22 01/09/22 Range/Units 20:18 16:40 WBC (4.8-10.8) K/ul RBC (4.63-6.08) M/uL Hgb (14.0-18.0) g/dl Hct (40.1-51.0) % MCV (80.0-100.0) fL MCH (25.0-34.0) pg MCHC (32.0-36.0) g/dL RDW Std Deviation (36.4-46.3) fL RDW Coeff of Jorge A (11.5-14.5) % Plt Count (130-400) K/uL MPV (9.4-12.4) fL POC Glucose 138 H 133 H (70-99) mg/dl PG Care Time/CCT Total # of Minutes Spent Total Time Spent with Patient: Total time spent is greater than 50% in coordination of care (as documented) at patient's floor/unit and/or counseling patient: Coding Level of Care Code 62913 Subseq Hosp Care Lvl 2 Diagnoses Acute and chronic respiratory failure with hypoxia J96.21 ESRD (end stage renal disease) on dialysis N18.6; Z99.2 Acute metabolic encephalopathy G93.41 Hypertension I10 Hypertension type: essential hypertension GERD (gastroesophageal reflux disease) K21.9 Current smoker F17.200 Depression F32.9 Depression Type: unspecified Hypothyroidism E03.9 Hypothyroidism type: unspecified DM type 2 (diabetes mellitus, type 2) E11.9 Complex sleep apnea syndrome G47.31 Multiple system atrophy G90.3 (1) Hypertension Hypertension type: essential hypertension Qualified Code(s): I10 - Essential (primary) hypertension (2) Depression Depression Type: unspecified Qualified Code(s): F32.9 - Major depressive disorder, single episode, unspecified (3) Hypothyroidism Hypothyroidism type: unspecified Qualified Code(s): E03.9 - Hypothyroidism, unspecified
[2022-01-10] MEDS: amLODIPine BESYLATE 5 MG TAB PO SCH (21:52)
[2022-01-10] MEDS: GABAPENTIN 100 MG CAP PO SCH (21:53)
[2022-01-10] MEDS: SIMVASTATIN 20 MG TAB PO SCH (21:53)
[2022-01-11] MEDS: PIPERACILLIN/TAZOBACTAM 4.5 GM in DEXTROSE 5% 100 ML IV SCH (05:55)
[2022-01-11] MEDS: HEPARIN SOD 5,000 UNIT/0.5 ML VIAL SQ SCH ×3 (05:56→20:49)
[2022-01-11] MEDS: LEVOTHYROXINE SODIUM 125 MCG TABLET PO SCH (05:56)
[2022-01-11] MEDS: INSULIN ASPART PER UNIT SC SCH ×4 (09:00→20:48)
[2022-01-11] MEDS: LANTUS PER UNIT CHARGE SQ SCH (09:03)
[2022-01-11] MEDS: carvediloL 12.5 MG TAB PO SCH ×2 (09:04→20:36)
[2022-01-11] MEDS: SEVELAMER HCL 800 MG TABLET PO SCH ×3 (09:04→16:59)
[2022-01-11] MEDS: FUROSEMIDE 80 MG TAB PO SCH ×2 (09:04→16:59)
[2022-01-11] MEDS: LOSARTAN POTASSIUM 50 MG TAB PO SCH (09:04)
[2022-01-11] MEDS: FAMOTIDINE 20 MG TAB PO SCH (09:04)
[2022-01-11] MEDS: ASPIRIN 81 MG ECTAB PO SCH (09:04)
[2022-01-11] MEDS: ESCITALOPRAM OXALATE 10 MG TAB PO SCH (09:04)
--- NOTE | 2022-01-11 09:50 | Nephrology Progress Note ---
Date of Service January 11, 2022 Assessment & Plan (1) ESRD (end stage renal disease) on dialysis: (2) Hypertension: (3) DM type 2 (diabetes mellitus, type 2): (4) Acute hyperkalemia: (5) Pulmonary edema: (6) Anemia in chronic kidney disease: Plan 66-year-old male with ESRD on hemodialysis, admitted with missed dialysis, volume overload and hyperkalemia requiring urgent dialysis. Has been having regular dialysis with improvement in volume status and getting close to estima elroy dry weight. Doing well, currently volume status, electrolyte, blood pressure acceptable. -- HD today to change to MWF schedule as plan to DC to [facility] and he can resume HD at there on Tuesday, hopefully he can be discharged on Tuesday to avoid HD day discharge. -- Avoid IV fluid, dose medications for GFR less than 10, left arm nephrology precaution. -- Low-potassium diet, fluid restriction to less than 1 L per day -- discussed about the importance of compliance with regular dialysis treatment to avoid repeated hospitalization, respiratory failure and cardiac complication. will follow Admission and Anticipated Discharge Date Admission Date: January 04, 2022 Keyur Lowery was seen and examined this morning. Overall he feels well, denies any shortness of breath or chest pain. Had dialysis Tuesday, tolerated well. Volume status, blood pressure acceptable. Review of Systems Review of Systems: Detailed review of system was otherwise unremarkable. Physical Exam Constitutional: WD/WN, vitals as above + morbidly obese; no acute distress Eyes: + anicteric sclerae Neck: normal visual inspection Respiratory: Auscultation: lungs clear to auscultation bilaterally Cardiovascular: Rate/Rhythm: regular rate and regular rhythm Heart Sounds: normal S1 and normal S2 Extremities: + AV fistula ( Left brachiocephalic AV fistula with thrill and bruit); no edema Skin: no rashes Neurologic: no focal motor deficits Psychiatric: Orientation: alert and oriented x 3 Results & Data ([facility]) Vital Signs (Past 12 Hours) Vital Signs Temp Pulse Pulse Resp BP Pulse Ox O2 Del Method 01/11/22 09:10 75 01/11/22 07:54 36.7 C 57 L 20 150/64 H 96 01/11/22 07:27 65 01/11/22 04:13 36.3 C L 65 18 146/64 H 91 Nasal Cannula 01/10/22 23:35 36.5 C 57 L 18 165/63 H 94 Nasal Cannula O2 Flow Rate 01/11/22 09:10 01/11/22 07:54 01/11/22 07:27 01/11/22 04:13 2 01/10/22 23:35 2 PG Care Time/CCT Total # of Minutes Spent Total Time Spent with Patient: Total time spent is greater than 50% in coordination of care (as documented) at patient's floor/unit and/or counseling patient: Coding Level of Care Code 65421 Subseq Hosp Care Lvl 3 Diagnoses ESRD (end stage renal disease) on dialysis N18.6; Z99.2 Hypertension I10 Hypertension type: essential hypertension DM type 2 (diabetes mellitus, type 2) E11.9 Acute hyperkalemia E87.5 Pulmonary edema J81.0 Chronicity: acute Anemia in chronic kidney disease N18.6; D63.1; Z99.2 Chronic kidney disease stage: on chronic dialysis (1) Hypertension Hypertension type: essential hypertension Qualified Code(s): I10 - Essential (primary) hypertension (2) Pulmonary edema Chronicity: acute Qualified Code(s): J81.0 - Acute pulmonary edema (3) Anemia in chronic kidney disease Chronic kidney disease stage: on chronic dialysis Qualified Code(s): N18.6 - End stage renal disease; D63.1 - Anemia in chronic kidney disease; Z99.2 - Dependence on renal dialysis
[2022-01-11 10:35] LABS: Albumin Globulin Ratio 1.1 (0.9-2); Albumin Level 3.6 gm/dl (3.4-5.0); BUN Creatinine Ratio 4.5 (10-20); Bilirubin,Total 0.5 mg/dl (0.2-1.0); Calcium 8.8 mg/dl (8.5-10.1); Creatinine Clr Calc Pharmacy 10.5 ml/min; Est GFR (Non-African American) 5.2 ml/min; Globulin 3.3 gm/dl (2.5-4.0); Phosphorus 5.5 mg/dl (2.5-4.9); Potassium 4.1 mmol/L (3.5-5.1); Total Protein 6.9 gm/dl (6.0-8.3)
[2022-01-11] MEDS ORDERED: NICOTINE POLACRILEX 2 MG GUM MT PRN (11:02)
--- NOTE | 2022-01-11 16:08 | Hospitalist Progress Note ---
Date of Service January 11, 2022 Assessment & Plan (1) Acute and chronic respiratory failure with hypoxia: Plan: 66yo male secondary to pulmonary edema from renal failure, pt missed outpt dialysis treatments. Initially POx in the 60s. Typically uses 2LNC continuously at home and CPAP at nighttime. Long history of smoking Acute Metabolic encephalopathy in setting of hyperkalemia, uremia and fluid volume overload due to missed dialysis Rx, hypoxic event (came in with POx 60s)--> not resolved yet-remains confused and not at his baseline but is improving Postdialysis 01/07 reduction of of alertness did stop buspar and gabapentin, reduced lexapro, follow for recurrence of possible infectious etiology, chest x- ray looks improved with no signs of pneumonia this could be postdialysis or toxic encephalopathy from medications. 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 Missed last HD treatment on 01/02 and had a partial treatment before that. Anuric Traditionally has been noncompliant with HD due to issues with transportation and poor motivation to go to HD. Hyperkalemia resolved after dialysis and Sodium Zirconium Cyclosilicate. Now with significant infiltration of LUE AV fistula in the upper arm causing significant swelling to the left upper extremity Elevate the arm Checked stat CBC and hemoglobin stable from previous, follow CBC again in the morning May need to consider consulting vascular surgery to ensure her AV fistula is is not compromised -Nephrology consultation appreciated and managing dialysis -Continue Sevelamer carbonate 2400mg po TID with meals -follow BMP in AM (3) Acute metabolic encephalopathy: Plan: as above (4) Hypertension: Plan: BPs mildly elevated -Continue Amlodipine 10mg po qHS -Continue Carvedilol 12.5mg po BID -Continue Losartan 50mg po daily -continue lasix (5) GERD (gastroesophageal reflux disease): Plan: Chronic -Pepcid (6) Current smoker: Plan: Patient offered nicotine patch and he refuses family will bring in nicotine chewing pouches that he can use. He still wishes to go outside and smoke which he was refused yet again -Add on nicotine gum (7) Depression: Plan: Chronic Buspirone stopped as above due to encephalopathy -Continue Escitalopram but dose reduced to 10mg (8) Hypothyroidism: Plan: Chronic. -TSH normal at 0.546 on 12/22/21 -Continue Synthroid (9) DM type 2 (diabetes mellitus, type 2): Plan: Chronic. 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 This may be his new baseline given significant hypoxic event prior to admission Continues to ask if he can go outside to smoke. Insists that he is going home rather than to rehab. Unfortunately, he suffered a significant infiltration of his AV fistula during dialysis today and has quite a bit of swelling in the left arm. Telemetry with first-degree AV block sinus rhythm, PACs and PVCs, 40s overnight and 50s to 60s during the day Review of Systems Review of Systems: All systems reviewed & are unremarkable except as noted in HPI & below Physical Exam Constitutional: WD/WN, vitals as above + morbidly obese Eyes: + anicteric sclerae Neck: trachea midline, no thyromegaly Respiratory: normal respiratory effort, lungs clear to auscultation Cardiovascular: Rate/Rhythm: regular rate and regular rhythm Extremities: + edema (trace pitting edema legs) Chest (Breasts): Chest: normal inspection of chest Gastrointestinal (Abdomen): normal bowel sounds, soft, nontender, no hepatosplenomegaly Musculoskeletal: Extremities: + extremities abnormal to inspection (LUE w/ significant swelling,+bruit and thrill in AVF upper arm), no cyanosis and no clubbing Skin: no rashes, warm and dry Neurologic: moves all extremities and awake; no focal motor deficits Psychiatric: Orientation: alert, oriented to person, oriented to place and cooperative; + not oriented to time Lymphatic: no lymphedema Results & Data Results & Data ([facility]) Vital Signs (Past 12 Hours) Vital Signs Temp Pulse Pulse Pulse Resp BP BP 01/11/22 15:19 55 L 01/11/22 13:30 54 L 130/58 L 01/11/22 14:05 36.5 C 55 L 95/53 L 01/11/22 13:00 49 L 110/53 L 01/11/22 12:30 63 140/63 01/11/22 12:00 60 142/100 H 01/11/22 11:30 50 L 129/48 L 01/11/22 11:00 52 L 108/93 01/11/22 10:48 55 L 146/82 H 01/11/22 10:40 36.5 C 45 L 01/11/22 09:00 01/11/22 10:31 36.3 C L 55 L 18 127/67 01/11/22 09:10 75 01/11/22 07:54 36.7 C 57 L 20 150/64 H 01/11/22 07:27 65 01/11/22 04:13 36.3 C L 65 18 146/64 H Pulse Ox O2 Del Method O2 Flow Rate 01/11/22 15:19 01/11/22 13:30 01/11/22 14:05 01/11/22 13:00 01/11/22 12:30 01/11/22 12:00 01/11/22 11:30 01/11/22 11:00 01/11/22 10:48 01/11/22 10:40 01/11/22 09:00 Room Air 01/11/22 10:31 90 01/11/22 09:10 01/11/22 07:54 96 01/11/22 07:27 01/11/22 04:13 91 Nasal Cannula 2 Laboratory Results 01/11/22 01/11/22 01/11/22 Range/Units 20:27 15:47 09:35 WBC 11.60 H (4.8-10.8) K/ul RBC 3.05 L (4.63-6.08) M/uL Hgb 10.1 L (14.0-18.0) g/dl Hct 29.9 L (40.1-51.0) % MCV 98.0 (80.0-100.0) fL MCH 33.1 (25.0-34.0) pg MCHC 33.8 (32.0-36.0) g/dL RDW Std Deviation 44.8 (36.4-46.3) fL RDW Coeff of Jorge A 13.0 (11.5-14.5) % Plt Count 217 (130-400) K/uL MPV 9.9 (9.4-12.4) fL Sodium 136 (136-145) mmol/L Potassium 4.1 (3.5-5.1) mmol/L Chloride 99 (98-107) mmol/L Carbon Dioxide 24 (21-32) mmol/L Anion Gap 13 H (3-11) BUN 42 H (6-23) mg/dl Creatinine 9.41 H* (0.6-1.4) mg/dl Est Cr Clr Drug Dosing 10.5 ml/min Est GFR ( Amer) 6.0 ml/min Est GFR (Non-Af Amer) 5.2 ml/min BUN/Creatinine Ratio 4.5 L (10-20) Glucose 138 H (70-99(Fasting)) mg/dl POC Glucose 182 H (70-99) mg/dl Calcium 8.8 (8.5-10.1) mg/dl Phosphorus 5.5 H (2.5-4.9) mg/dl Total Bilirubin 0.5 (0.2-1.0) mg/dl AST 13 (13-39) U/L ALT 15 (7-52) U/L Alkaline Phosphatase 56 (34-104) U/L Total Protein 6.9 (6.0-8.3) gm/dl Albumin 3.6 (3.4-5.0) gm/dl Globulin 3.3 (2.5-4.0) gm/dl Albumin/Globulin Ratio 1.1 (0.9-2) 01/11/22 Range/Units 07:33 WBC (4.8-10.8) K/ul RBC (4.63-6.08) M/uL Hgb (14.0-18.0) g/dl Hct (40.1-51.0) % MCV (80.0-100.0) fL MCH (25.0-34.0) pg MCHC (32.0-36.0) g/dL RDW Std Deviation (36.4-46.3) fL RDW Coeff of Jorge A (11.5-14.5) % Plt Count (130-400) K/uL MPV (9.4-12.4) fL Sodium (136-145) mmol/L Potassium (3.5-5.1) mmol/L Chloride (98-107) mmol/L Carbon Dioxide (21-32) mmol/L Anion Gap (3-11) BUN (6-23) mg/dl Creatinine (0.6-1.4) mg/dl Est Cr Clr Drug Dosing ml/min Est GFR ( Amer) ml/min Est GFR (Non-Af Amer) ml/min BUN/Creatinine Ratio (10-20) Glucose (70-99(Fasting)) mg/dl POC Glucose 101 H (70-99) mg/dl Calcium (8.5-10.1) mg/dl Phosphorus (2.5-4.9) mg/dl Total Bilirubin (0.2-1.0) mg/dl AST (13-39) U/L ALT (7-52) U/L Alkaline Phosphatase (34-104) U/L Total Protein (6.0-8.3) gm/dl Albumin (3.4-5.0) gm/dl Globulin (2.5-4.0) gm/dl Albumin/Globulin Ratio (0.9-2) PG Care Time/CCT Total # of Minutes Spent Total Time Spent with Patient: Total time spent is greater than 50% in coordination of care (as documented) at patient's floor/unit and/or counseling patient: Coding Level of Care Code 32777 Subseq Hosp Care Lvl 2 Diagnoses Acute and chronic respiratory failure with hypoxia J96.21 ESRD (end stage renal disease) on dialysis N18.6; Z99.2 Acute metabolic encephalopathy G93.41 Hypertension I10 Hypertension type: essential hypertension GERD (gastroesophageal reflux disease) K21.9 Current smoker F17.200 Depression F32.9 Depression Type: unspecified Hypothyroidism E03.9 Hypothyroidism type: unspecified DM type 2 (diabetes mellitus, type 2) E11.9 Complex sleep apnea syndrome G47.31 Multiple system atrophy G90.3 (1) Depression Depression Type: unspecified Qualified Code(s): F32.9 - Major depressive disorder, single episode, unspecified (2) Hypothyroidism Hypothyroidism type: unspecified Qualified Code(s): E03.9 - Hypothyroidism, unspecified (3) Hypertension Hypertension type: essential hypertension Qualified Code(s): I10 - Essential (primary) hypertension
[2022-01-11 16:15] LABS: Hematocrit (blood only) 29.9 % (40.1-51.0); Hemoglobin 10.1 g/dl (14.0-18.0); Mean Corpuscular Hemoglobin 33.1 pg (25.0-34.0); Mean Corpuscular Hgb Conc 33.8 g/dL (32.0-36.0); Mean Platelet Volume 9.9 fL (9.4-12.4); Platelet Count 217 K/uL (130-400); RDW Standard Deviation 44.8 fL (36.4-46.3); Red Blood Count 3.05 M/uL (4.63-6.08)
[2022-01-11] MEDS: amLODIPine BESYLATE 5 MG TAB PO SCH (20:36)
[2022-01-11] MEDS: GABAPENTIN 100 MG CAP PO SCH (20:36)
[2022-01-11] MEDS: SIMVASTATIN 20 MG TAB PO SCH (20:36)
[2022-01-12] MEDS: LEVOTHYROXINE SODIUM 125 MCG TABLET PO SCH (06:03)
[2022-01-12] MEDS: HEPARIN SOD 5,000 UNIT/0.5 ML VIAL SQ SCH ×2 (06:03→13:10)
[2022-01-12] MEDS: FAMOTIDINE 20 MG TAB PO SCH (08:05)
[2022-01-12] MEDS: ASPIRIN 81 MG ECTAB PO SCH (08:05)
[2022-01-12] MEDS: carvediloL 12.5 MG TAB PO SCH (08:05)
[2022-01-12] MEDS: FUROSEMIDE 80 MG TAB PO SCH (08:05)
[2022-01-12] MEDS: LOSARTAN POTASSIUM 50 MG TAB PO SCH (08:05)
[2022-01-12] MEDS: SEVELAMER HCL 800 MG TABLET PO SCH ×2 (08:05→12:14)
[2022-01-12] MEDS: ESCITALOPRAM OXALATE 10 MG TAB PO SCH (08:06)
[2022-01-12] MEDS: INSULIN ASPART PER UNIT SC SCH ×2 (08:08→12:14)
[2022-01-12] MEDS: LANTUS PER UNIT CHARGE SQ SCH (08:08)
[2022-01-12 08:13] LABS: Hematocrit (blood only) 29.2 % (40.1-51.0); Hemoglobin 9.8 g/dl (14.0-18.0); Mean Corpuscular Hgb Conc 33.6 g/dL (32.0-36.0); Mean Corpuscular Volume 98.3 fL (80.0-100.0); Mean Platelet Volume 10.1 fL (9.4-12.4); Platelet Count 229 K/uL (130-400); RDW Coefficient of Variation 13.2 % (11.5-14.5); RDW Standard Deviation 45.5 fL (36.4-46.3); Red Blood Count 2.97 M/uL (4.63-6.08); White Blood Count 12.55 K/ul (4.8-10.8)
[2022-01-12 08:59] LABS: BUN Creatinine Ratio 3.9 (10-20); Est GFR (African American) 7.1 ml/min; Est GFR (Non-African American) 6.1 ml/min; Potassium 3.8 mmol/L (3.5-5.1)
--- NOTE | 2022-01-12 10:51 | Nephrology Progress Note ---
Date of Service January 12, 2022 Assessment & Plan (1) ESRD (end stage renal disease) on dialysis: (2) Hypertension: (3) DM type 2 (diabetes mellitus, type 2): (4) Acute hyperkalemia: (5) Pulmonary edema: (6) Anemia in chronic kidney disease: Plan 66-year-old male with ESRD on hemodialysis, admitted with missed dialysis, volume overload and hyperkalemia requiring urgent dialysis. Has been having regular dialysis with improvement in volume status and getting close to estima elroy dry weight. Doing well, currently volume status, electrolyte, blood pressure acceptable. -- had HD yesterday to change to MWF schedule as plan to DC to [facility] and he can resume HD at there on Tuesday. AVF with decent bruit after infiltration yesterday. -- Avoid IV fluid, dose medications for GFR less than 10, left arm nephrology precaution. -- Low-potassium diet, fluid restriction to less than 1 L per day -- discussed about the importance of compliance with regular dialysis treatment to avoid repeated hospitalization, respiratory failure and cardiac complication. will follow Admission and Anticipated Discharge Date Admission Date: January 04, 2022 Subjective Bill was seen and examined this morning. Overall he feels well, denies any significant symptoms. Had AV fistula infiltration yesterday resulting in large hematoma however pain he denies significant pain. AV fistula has decent bruit. Hemoglobin was stable. Review of Systems Review of Systems: Detailed review of system was otherwise unremarkable. Physical Exam Constitutional: WD/WN, vitals as above + morbidly obese; no acute distress Eyes: + anicteric sclerae Neck: normal visual inspection Respiratory: Auscultation: lungs clear to auscultation bilaterally Cardiovascular: Rate/Rhythm: regular rate and regular rhythm Heart Sounds: normal S1 and normal S2 Extremities: + AV fistula (L BC AVF with bruit, has large hematoma.); no edema Skin: no rashes Neurologic: no focal motor deficits Psychiatric: Orientation: alert and oriented x 3 Results & Data ([facility]) Vital Signs (Past 12 Hours) Vital Signs Temp Pulse Pulse Resp BP Pulse Ox O2 Del Method 01/12/22 08:15 Room Air 01/12/22 08:00 66 01/12/22 07:53 36.8 C 56 L 20 118/57 L 95 Room Air 01/12/22 06:52 58 L 01/12/22 04:00 36.8 C 57 L 18 116/68 92 Room Air 01/12/22 00:00 36.7 C 63 18 130/66 92 Room Air PG Care Time/CCT Total # of Minutes Spent Total Time Spent with Patient: Total time spent is greater than 50% in coordination of care (as documented) at patient's floor/unit and/or counseling patient: Coding Level of Care Code 51741 Subseq Hosp Care Lvl 3 Diagnoses ESRD (end stage renal disease) on dialysis N18.6; Z99.2 Hypertension I10 Hypertension type: essential hypertension DM type 2 (diabetes mellitus, type 2) E11.9 Acute hyperkalemia E87.5 Pulmonary edema J81.0 Chronicity: acute Anemia in chronic kidney disease N18.6; D63.1; Z99.2 Chronic kidney disease stage: on chronic dialysis (1) Hypertension Hypertension type: essential hypertension Qualified Code(s): I10 - Essential (primary) hypertension (2) Pulmonary edema Chronicity: acute Qualified Code(s): J81.0 - Acute pulmonary edema (3) Anemia in chronic kidney disease Chronic kidney disease stage: on chronic dialysis Qualified Code(s): N18.6 - End stage renal disease; D63.1 - Anemia in chronic kidney disease; Z99.2 - Dependence on renal dialysis
--- NOTE | 2022-01-12 15:51 | Discharge Summary ---
Date of Service date of admission - January 04, 2022 date of discharge - January 12, 2022 Admission HPI Per Admitting Provider Maxx Patiño is a 55yo male with history of ESRD on HD q T/R/Sat, hypothyroidism, GERD, DM, HLP presenting with shortness of breath. Patient was brought in via EMS - was hypoxic at home prior to arrival, reportedly 60% on room air. Patient did not receive his dialysis treatment on 01/02 and reports he only received 3 hours of treatment on 12/31. He has no additional complaints at this time. Upon arrival to the ER he has elevated temperature at 37.9, HD stable, adequate oxygenation on 4L NC He is oriented only to self and does not provide much additional information. ER Course: Vancomycin 2750mg, Cefepime 2gm, Sodium Zirconium Cyclosilicate Principal Diagnosis acute hypoxic respiratory failure 2nd to pulmonary edema from missed HD sessions Discharge Exam gen - obese, NAD, slight confusion neck - no JVD mouth - MMM heart - RRR, s1 s2 lungs - CTA b/l abd - soft NT ND BS+ ext - no edema, pulses 2+ b/l vascular - left arm AV fistula present with bruit/thrill; small-moderate amount of swelling left arm but by report has improved Discharge Data Allergies Allergy/AdvReac Type Severity Reaction Status Date / Time lactose AdvReac Intermediate Gastrointestinal Verified 12/21/21 16:37 Upset Consultations [facility] Ordered Studies Chest X-Ray 01/04/22 16:11 XR chest 1V portable HISTORY: 66 years-old Male Sepsis acute sepsis COMPARISON: Chest radiograph 12/21/2021 TECHNIQUE: Portable AP view the chest FINDINGS: Cardiac silhouette is enlarged. Pulmonary vascular congestion with pulmonary vascular congestion and interstitial coarsening. Pulmonary arterial hypertension. Chronic blunting of the lateral left costophrenic angle secondary to a prominent epicardial fat pad. Possible trace pleural effusions with mild bibasilar opacities. Degenerative changes of the shoulders and spine. IMPRESSION: 1. Cardiomegaly with pulmonary vascular congestion and interstitial coarsening suggestive of pulmonary edema. 2. Chronic left basilar opacity with probable trace pleural effusions. 3. Mild bibasilar opacities suggestive of atelectasis versus pneumonitis. ACT 112: Negative or not required by law. The above report was generated using voice recognition software. It may contain grammatical, syntax or spelling errors. Electronically signed by: Diony Baxter M.D. 01/04/2022 4:34 PM Chest X-Ray 01/06/22 06:00 SINGLE VIEW CHEST CLINICAL HISTORY: Congestive heart failure FINDINGS: An AP, portable, upright chest radiograph is compared to study dated 01/04/2022 and correlated with chest CT dated 06/23/2021. The examination is degraded by portable technique and apical lordotic positioning. The heart is enlarged noting atherosclerotic calcification of the thoracic aorta. There is pulmonary vascular congestion with evidence of interstitial edema. Small pleural effusions are suspected with bibasilar opacities. No pneumothorax is seen. The skeletal structures are osteopenic. The bony thorax is grossly intact. IMPRESSION: 1. Cardiomegaly without evidence of congestive failure and pulmonary edema. This is similar to 01/04/2022. 2. Suspect small pleural effusions. ACT 112: Negative or not required by law. Electronically signed by: Rodrigo Cason M.D. 01/06/2022 9:05 AM Chest X-Ray 01/08/22 08:26 SINGLE VIEW CHEST CLINICAL HISTORY: Congestive heart failure FINDINGS: An AP, portable, upright chest radiograph is compared to study dated 06/23/2021 and correlated with chest CT dated 06/23/2021. The examination is degraded by portable technique, patient rotation, and apical lordotic positioning. The heart is enlarged noting atherosclerotic calcification of the thoracic aorta. There is pulmonary vascular congestion with evidence of interstitial edema. Small pleural effusions are suspected with left greater than right bibasilar opacities. No pneumothorax is seen. The skeletal structures are osteopenic. The bony thorax is grossly intact. IMPRESSION: 1. Cardiomegaly with evidence of congestive failure and pulmonary edema. This is similar to 01/06/2022. 2. Suspect small pleural effusion with left greater than right bibasilar opacities. ACT 112: Negative or not required by law. Electronically signed by: Rodrigo Cason M.D. 01/08/2022 12:44 PM Hospital Course (1) Acute respiratory failure with hypoxia: Patient presented with hypoxia in the 60s after missing his HD treatment on 01/02/22 and having only a partial treatment prior to that on 12/31/21. He required NC O2 at time of admission but was weaned off by 01/11/22 to room air. He received every other day HD treatments including 01/05, 01/07, 01/09, and 01/11. Each session he had 3-4 L of fluid removed. This corrected his hypervolemic state/pulmonary edema with improved respiratory status. I did clarify with his sister that he is NOT on continuous NC O2 outside the hospital. He previously required oxygen supplementation with his prior BIPAP unit. However, Dr Reid Vo, his JANET provider, switched him to an ASV unit and since that change has NOT required supplemental O2 at night-time. (2) ESRD (end stage renal disease) on dialysis: Patient with ESRD on HD q //Sat as outpatient. Missed last HD treatment on 01/02 and had a partial treatment 12/31. Traditionally has been noncompliant with HD due to issues with transportation and poor motivation to go to HD. He received HD treatments here on 01/05, 01/07, 01/09, and 01/11. He will be changing to a Tuesday/Tuesday/Tuesday schedule at [facility]. On 01/11 during his HD treatment he experienced significant infiltration of the LUE AV fistula causing swelling to the left upper extremity. The swelling did improve rather quickly following this event. He should continue to elevate the arm and warm packs, if desired, can be used over the swollen arm region. [facility] assisted with his HD needs while here. Continue Sevelamer carbonate 2400mg po TID with meals. (3) Acute metabolic encephalopathy: Acute Metabolic encephalopathy in setting of hyperkalemia, uremia and fluid volume overload due to missed dialysis treatments. Hypoxia may have contributed to his confusion as well. Further, he was not on his ASV sleep apnea machine during the hospitalization nor any BIPAP. Postdialysis on 01/07 he had reduction of alertness. Buspar was stopped. Gabapentin dose was reduced. Lexapro dose was reduced. There was some question at the beginning of his hospitalization whether he had pneumonia. However, it was ultimately felt he did not have an infectious process. 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 I suspect he probably had element of hospital delirium in addition to all of the factors above. Hopefully his mentation will improve to baseline over time. Resuming his ASV sleep apnea device at and with naps should help immensely as well. (4) Hypertension: Continue Amlodipine 10mg po qHS Continue Carvedilol 12.5mg po BID Continue Losartan 50mg po daily Continue lasix 80mg BID (5) GERD (gastroesophageal reflux disease): Cont omeprazole 20mg daily (6) Current smoker: Patient offered nicotine patch but he refused such. Instead nicotine gum was used prn. (7) Depression: Chronic Buspirone stopped as above due to encephalopathy Continue Escitalopram but at reduced dose of 10mg daily (8) Hypothyroidism: TSH normal at 0.546 on 12/22/21 Continue Synthroid (9) DM type 2 (diabetes mellitus, type 2): Last A1C on 08/05/21 = 6.5% Continue Lantus 15u daily Continue Novolog sliding scale for meal-time coverage (10) Complex sleep apnea syndrome: CPAP had been ordered for him but he refused such. He was prescribed an ASV unit by Dr Reid Vo in 2021. His sister was asked to bring that ASV unit to [facility] for his use. Supplemental O2 is not needed. 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 Uses motorized wheelchair and khadar lift. ?had previously been on hospice for this diagnosis? Recommend f/u with [facility] for this significant issue. (12) Morbid obesity with BMI of 40.0-44.9, adult: BMI 43 Plan code status DNR/DNI Total Time Total Time Spent Total Time Spent (In Minutes): 50 Discharge Plan Discharge Items Patient Disposition: Transfer [facility] Reason For Visit: Volume Overload due to missed hemodialysis Discharge Diagnosis: 1. pulmonary edema/volume overload due to missed hemodialysis - volume overload resolved 2. multiple systems atrophy 3. severe ambulatory dysfunction due to #2 4. concern for, at minimum, mild cognitive impairment due to #2 5. hospital delirium 6. infiltrated left arm due to recent dialysis via AV fistula - improved left arm swelling 7. severe JANET 8. ESRD on dialysis - TUESDAY, TUESDAY, and TUESDAY 9. type 2 diabetes 10. hypothyroidism 11. GERD 12. morbid obesity - BMI 43 Activity: Resume your previous activity Non-emergency contact: Primary Care Provider, Home [employer] Installer and Neurologist Call non-emergency contact if: you have any medication questions Follow-up/Referrals: [facility] [Provider Group] (resume dialysis 3 days/week as previous ) [facility] [Provider Group] (first available visit - follow-up of Multiple Systems Atrophy ) Veto Gan DO [Primary Care Provider] - 01/15/22 12:00 pm Diet: Carb Consistent or DM2 and Dialysis Renal Fluids: 1500ml (6 cups) Addtl Attending Provider Instructions: 1. Check fingerstick blood sugars before MEALS and at BEDTIME. 2. Fluid restriction to 1500cc/day. 3. At bedtime and with naps use home ASV (adaptive servo ventilation) unit. This is for sleep apnea. Pt's [facility]. Pending Studies at Discharge: No Stand-Alone Forms: [facility] [employer] Skilled Items Patient informed of condition?: Yes DNR: Yes Discharge Level of Care: Skilled Communicable Disease: No Discharge Prognosis: Stable Lines: None Urinary Catheter: No Medications and DC Order Prescriptions: New nicotine (polacrilex) [Nicorette] 2 mg Gum 2 mg MT Q1H PRN (Reason: nicotine cravings) Qty: 30 0RF insulin aspart U-100 [Novolog U-100 Insulin aspart] 100 unit/mL Solution See Rx Instructions .ROUTE .COMPLEX Qty: 10 0RF Rx Instructions: sliding scale novolog insulin FOR MEAL-TIME coverage only. scale as follows with breakfast, lunch, and dinner - For BSG of 150-200 give 2 units of novolog. For BSG of 201-250 give 4 units of novolog. For BSG of 251-300 give 6 units of novolog. For BSG of 301-350 give 8 units of novolog. For BSG >350 give 10 units of novolog and call medical assistant per diem. thiamine HCl (vitamin B1) 100 mg tablet 200 mg PO BID 30 Days Qty: 120 0RF polyethylene glycol 3350 [Miralax] 17 gram powder in packet 17 g PO DAILY Qty: 30 2RF sennosides [Senna Lax] 8.6 mg tablet 8.6 mg PO DAILY Qty: 30 2RF Continued (DME) HYDRAULIC KHADAR LIFT See Rx Instructions .Route .MEDSUPPLY Qty: 1 0RF Rx Instructions: Dx:E11.40; R29.6; R26.2 (DME) FreeStyle Virgil 14 Day [place] Misc See Rx Instructions .ROUTE .MEDSUPPLY Qty: 1 5RF Rx Instructions: Use to monitor blood sugars daily amlodipine 10 mg tablet 10 mg PO HS Qty: 90 3RF levothyroxine 125 mcg tablet 125 mcg PO QAM Qty: 90 3RF losartan 50 mg tablet 50 mg PO QAM Qty: 90 3RF (DME) FreeStyle Virgil 14 Day Sensor Kit See Dose Instructions .ROUTE .MEDSUPPLY Qty: 6 3RF Dose Instruction: As directed Rx Instructions: change sensor every 14 days omeprazole 20 mg capsule,delayed release(DR/EC) 20 mg PO QAM Qty: 180 3RF (DME) pen needle, diabetic [BD Ultra-Fine Micro Pen Needle] 32 gauge x 1/4" needle See Dose Instructions .ROUTE .MEDSUPPLY Qty: 100 5RF Dose Instruction: As directed Rx Instructions: Use to inject Lantus once daily carvedilol 12.5 mg tablet 12.5 mg PO BID Qty: 180 3RF Rx Instructions: must administer with a meal/food Levemir FlexTouch U-100 Insuln 100 unit/mL (3 mL) insulin pen 15 unit subcut DAILY 90 Days Qty: 15 2RF nitroglycerin 0.4 mg tablet, sublingual 0.4 mg sublingual DIRECTED PRN (Reason: Chest Pain) Rx Instructions: NEEDED FOR CHEST PAIN : ONE TABLET UNDER THE TONGUE EVERY FIVE MINUTES UP TO 3 DOSES. simvastatin 20 mg tablet 20 mg PO HS aspirin 81 mg Tablet,Delayed Release (Dr/Ec) 81 mg PO DAILY furosemide [Lasix] 80 mg tablet 80 mg PO BID Qty: 180 3RF Rx Instructions: give at 9am and 5pm sevelamer carbonate 800 mg tablet 2,400 mg PO TIDM Changed gabapentin 100 mg capsule 100 mg PO HS Qty: 270 3RF escitalopram oxalate 20 mg tablet 10 mg PO QAM Qty: 30 0RF Discontinued buspirone 15 mg tablet 15 mg PO AMHS Discharge Orders: Discharge Order (Routine); Ordered 01/12/22 Ordered By: Perez Barriga/Other Patient Handouts: Managing Type 2 Diabetes Admission Data Admit Date/Time: 01/04/22 19:54 Attending Provider: Perez Burkett Admit Provider: Felicita Steel Primary Care Provider: Veto Gan. Other Providers: Felicita Steel ; Audi Francis ; [facility] Other Interventions: Discharge Summary Assessment (RN) Last Done: 01/12/22 16:15 Coding Level of Care Code D/C DAY MANAGEMENT >30 MINS Diagnoses Acute respiratory failure with hypoxia J96.01 ESRD (end stage renal disease) on dialysis N18.6; Z99.2 Acute metabolic encephalopathy G93.41 Hypertension I10 Hypertension type: essential hypertension GERD (gastroesophageal reflux disease) K21.9 Current smoker F17.200 Depression F32.9 Depression Type: unspecified Hypothyroidism E03.9 Hypothyroidism type: unspecified DM type 2 (diabetes mellitus, type 2) E11.9 Complex sleep apnea syndrome G47.31 Multiple system atrophy G90.3 Morbid obesity with BMI of 40.0-44.9, adult E66.01; Z68.41
== END 2022-01-12 17:06 | DRG 640 ==
LOC: ED 15:41 → SUATTDRO 19:54 → 2W 19:54